=== PATIENT | male | born 1980 | race Caucasian/White ===

== ENCOUNTER 2020-06-12 00:51 | Inpatient (IN) | payer MEDICAID, SELFPAY ==
[2020-06-12] VITALS (58 sets, daily range): BP systolic 132–184; BP diastolic 87–134; PULSE 57–105; RESP 12–26; TEMP 36.1–36.8; O2SAT 86–100
--- NOTE | 2020-06-12 | DI.US_ITS ---
EXAM: US ABDOMEN CLINICAL HISTORY: choledocolithiasis TECHNIQUE: Ultrasound abdomen performed using standard protocol. COMPARISON: CT CT ABDOMEN PELVIS W from 06/12/2020 FINDINGS: ABDOMINAL AORTA AND IVC: Visualized portions normal caliber. PANCREAS: Normal where visualized. LIVER: There is increased echogenicity of the liver consistent with fatty infiltration. The liver me asures 14.9 cm long. Hepatopedal flow in the Portal Vein. GALLBLADDER: No evidence of cholelithiasis. No evidence of wall thickening. No pericholecystic fluid identified. BILIARY SYSTEM: Common bile duct is dilated and measures 8 mm. No intrahepatic biliary ductal dilati on. The common bile duct was difficult to visualize due to overlying bowel gas. RUSHING'S SIGN: Negative. KIDNEYS: Kidneys are symmetric in size. No evidence of renal calculi. No evidence of hydronephrosis. No renal mass or cyst identified. SPLEEN: Not enlarged. ASCITES: None seen. IMPRESSION: 1. The common duct is dilated at 8 mm. No choledocholithiasis or cholelithiasis is present. MRI of the abdomen and MRCP should be considered for further evaluation to exclude stone or mass. 2. Fatty infiltration of the liver. DATA REPOSITORY:
--- NOTE | 2020-06-12 00:45 | DI.CT_ITS ---
EXAM: CT ABDOMEN PELVIS W CLINICAL HISTORY: etoh, vomiting, epigastric pain TECHNIQUE: Imaging Protocol: Axial computed tomography images with coronal and sagittal reformatted images were created and reviewed CONTRAST MATERIAL: Intravenous: Omnipaque 350 Contrast volume:100 mL Oral: No COMPARISON: CT CHEST ABD PELVIS WITH CONTRAST from 10/26/2017 FINDINGS: The examination is limited due to patient motion artifact. ABDOMEN: Lung Bases: Normal where visualized. Liver: There is diffuse fatty infiltration. No measurable mass. Portal, Superior Mesenteric, and Splenic Veins: Unremarkable. Gallbladder and Biliary Tract: No cholelithiasis. The extrahepatic common duct measures up to 1 cm. No choledocholithiasis is appreciated. Pancreas: Normal density, no abnormal calcifications or inflammatory process. Spleen: Normal. Note is made of an accessory spleen. Adrenals: No masses seen. Kidneys: Normal size, contour and axis. No radiodense stones or obstructive uropathy. No masses seen. Abdominal Aorta: Abdominal portion non-dilated. Mild atherosclerosis. Bowel: No evidence of bowel obstruction. There is mild thickening of the wall of the descending and sigmoid colon. No evidence of appendicitis. Peritoneal Cavity: No ascites, collection or mesenteric inflammatory response. No free air. Lymph Nodes: Within normal limits. Bones: Degenerative changes are seen in the lumbar spine particularly at L4-L5. These findings resul t in mild central spinal canal stenosis. Soft Tissues: Unremarkable. PELVIS: Bladder: Symmetric distention, no gross wall thickening. Reproductive Organs: Unremarkable as visualized. Lymph Nodes: Within normal limits. Bones: Please see the above discussion. IMPRESSION: 1. Extrahepatic bile duct dilatation up to 1 cm. If there is clinical/laboratory concern for choledo cholithiasis or mass, ultrasound or MRCP should be obtained for further evaluation. 2. Colonic wall thickening suggesting nonspecific infectious or inflammatory colitis. 3. Hepatic steatosis. 4. Degenerative changes at L4-L5 resulting in mild central spinal canal stenosis. RADIATION DOSE DELIVERED: 807.02mGy.cm Total DLP DATA REPOSITORY: All CT scans at this facility are submitted to the National Radiology Data Registry (NRDR) Dose Index Registry (DIR) with the [employer] (ACR). RADIATION OPTIMIZATION: All CT scans at this facility use at least one of these dose optimization te chniques: automated exposure control; mA and/or kV adjustment per patient size (includes targeted exa ms where dose is matched to clinical indication); or iterative reconstruction.
--- NOTE | 2020-06-12 00:59 | ED.GENADUL_ITS ---
Discharge Plan Disposition Patient Disposition: [facility] INPATIENT Condition: Serious Discharge Details Chief Complaint: ETOHWithdr Clinical Impression: Choledocholithiasis, Alcohol withdrawal delirium, Vomiting, Acute epigastric pain, Dehydration Primary Care Provider: Glendy Cohen ED Provider: Jose Enrique Campos Home Meds and New Rx's Prescriptions: No Action amitriptyline 100 MG tablet 50 mg PO HS RF: 0 valacyclovir 500 MG tablet 500 mg PO BID RF: 0 alum-mag hydroxide-simeth [Maalox Advanced] 355 ML suspension 15 ml PO Q6H PRN PRNRF: 0 terbinafine HCl 15 GM cream 1 applic Topical BID Qty: 1 RF: 0 cyclobenzaprine 10 MG tablet 10 mg PO TID RF: 0 methadone 10 MG/ML concentrate 75 mg PO DAILY RF: 0 albuterol sulfate 8.5 GM HFA aerosol inhaler 8.5 gm Inhalation QID PRN (Reason: Cough) Qty: 1 RF: 0 fluoxetine 20 mg capsule 60 mg PO DAILY RF: 0 Medical Decision Making 40-year-old male with a past medical history of asthma, methadone use, chronic alcoholism and recurrent pancreatitis, as well as a history of DTs, presents today for evaluation of epigastric pain, vomiting, and DTs. Patient regularly drinks 8 extra tall mikes hard lemonade per day. Last drink was 2 to 3 days ago for the patient, he developed some nausea and vomiting 2 to 3 days ago as well, and epigastric pain starting today. She does admit to occasional intermittent small dime sized red speckles in the vomit. He does have a history of previous surgically removed appendicitis. He denies any chest pain, shortness of breath. He states that this feels similar to his previous episodes of DTs and recurrent pancreatitis. Physical exam demonstrates epigastric tenderness, notably tremulous and anxious patient, demonstrates clear evidence of DTs, concern for pancreatitis, Pancreatic pseudocyst or abscess. Will get CT imaging, treat his pain and DTs, rehydrate with banana bag and saline, monitor closely and reassess. Plan is likely for admission. 2 AM Laboratory work-up is returned, white count is 9, MCV is elevated at 101, hemoglobin is stable at 13.6. Electrolytes normal, mild anion gap of 13.4, magnesium normal. Bilirubin notably elevated at 2.3, he has transaminitis of AST and ALT at 206 and 186 respectively. Lipase normal 56. Alcohol negative. Although the patient has had transaminitis before he has never had an elevated bilirubin like this. CT scan results have returned, patient has biliary duct dilatation noted with the common bile duct measuring up to 9 mm with slightly heterogeneous attenuation in the distal common bile duct that is noted without calcification. There is some also colonic wall thickening compatible with nonspecific distal colitis. Differential at this time is certainly concerning for choledocholithiasis. With no white count or fever I doubt ascending cholangitis. However this is on the differential. With the need for potential ERCP, we will contact [facility] for transfer. Patient has received 6 of Ativan so far, and his tremulousness has improved. CIWA score initially was 25, I would say he now has a 6-10 point improvement after the Ativan. 3 AM [facility] is at capacity and refusing transfers, [facility] exact capacity and refusing transfers. [facility] is willing to do a down and back for potential ERCP. I discussed the case with GI Dr. Jeffries, he agrees with the plan. The meantime we will manage the patient here overnight in the ICU. On reassessment after 8 mg total of Ativan the patient has notably improved in his DTs, CIWA score is notably diminished. He is resting comfortably. Patient remains hemodynamically stable. At this time symptoms are clinically inconsistent with ascending cholangitis or cholecystitis. I discussed the case with Dr. Tiwari, he agrees with the assessment and plan. The patient will be admitted to the ICU for DT management, awaiting their and back transport from [facility] for ERCP. I have extensively reviewed the treatment plan with the patient. I have addressed all patient concerns at this time. I have also discussed the plan with the admitting physician and they agree with the current assessment and plan and have agreed to assume responsibility for the patient. All parties demonstrate verbal understanding and agreement with our assessment and plan at this time. The documentation in this chart was dictated using [employer] dictation software. Please excuse any dictation errors. HPI General Date/Time Provider Initiated Documentation: 06/12/20 00:56 . HPI Narrative: 40-year-old male with a past medical history of asthma, methadone use, chronic alcoholism and recurrent pancreatitis, as well as a history of DTs, presents today for evaluation of epigastric pain, vomiting, and DTs. Patient regularly drinks 8 extra tall mikes hard lemonade per day. Last drink was 2 to 3 days ago for the patient, he developed some nausea and vomiting 2 to 3 days ago as well, and epigastric pain starting today. She does admit to occasional i ntermittent small dime sized red speckles in the vomit. He does have a history of previous surgically removed appendicitis. He denies any chest pain, shortness of breath. He states that this feels similar to his previous episodes of DTs and recurrent pancreatitis. Related Data Home Medications Medication Instructions Recorded Confirmed amitriptyline 50 mg PO HS 09/08/12 06/12/20 valacyclovir 500 mg PO BID 09/08/12 06/12/20 alum-mag hydroxide-simeth [Maalox 15 ml PO Q6H PRN PRN 05/20/13 06/12/20 Advanced] terbinafine HCl 1 applic TOPICAL BID #1 tube 04/19/14 06/12/20 cyclobenzaprine 10 mg PO TID 08/15/14 06/12/20 albuterol sulfate 8.5 gm INHALATION QID PRN #1 02/14/15 06/12/20 [email or web address] methadone 75 mg PO DAILY 02/20/15 06/12/20 fluoxetine 60 mg PO DAILY 06/12/20 06/12/20 Previous Rx's Medication Instructions Recorded terbinafine HCl 1 applic TOPICAL BID #1 tube 04/19/14 albuterol sulfate 8.5 gm INHALATION QID PRN #1 02/14/15 [email or web address] Allergies Allergy/AdvReac Type Severity Reaction Status Date / Time clindamycin Allergy Intermediate Hives Unverified 10/26/17 02:18 NSAIDS (Non-Steroidal AdvReac Intermediate perforated Unverified 10/26/17 02:18 Anti-Inflamma ulcer Review of Systems All systems reviewed & are unremarkable except as noted in HPI and below PFSH Social History Smoking/Tobacco Use Status: Current every day Smoking risk assessment performed?: Yes Alcohol Intake: current Alcohol Intake frequency: 3 or more drinks per day Alcohol type: beer Drug use: Current Sobriety Substance use type: does not use Do you feel safe at home: Yes Do you feel safe in your relationship?: Yes Exam Narrative Exam Narrative: 1.Const: Well-nourished, Well-developed, appearing stated age 2.Eyes: PERRL, no conjunctival injection, and symmetrical lids. 3.ENT: Atraumatic external nose and ears. Moist MM. Neck: Symmetric, trachea midline, No thyromegaly. 4.CVS: +S1/S2, No murmurs or gallops. Peripheral pulses 2+ and equal in all extremities. Brisk capillary refill in all extremities. 5.RESP: Unlabored respiratory effort. Clear to auscultation bilaterally. No wheezes rales or rhonchi 6.GI: Soft, nondistended, mild to moderate epigastric tenderness. No guarding or rebound. 7.MSK: Normocephalic/Atraumatic, Extremities w/o deformity or ttp No cyanosis or clubbing, Normal movement of all extremities 8.Skin: Warm, Dry. No rashes or lesions. 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 Sensation grossly intact, no focal neurologic deficits. Notably tremulous, anxious. 10.Psych: (AAO) x3. Appropriate mood and affect
[2020-06-12] MEDS: Ondansetron 4 MG/2 ML VIAL IVP ×2 (01:13→18:50)
[2020-06-12] MEDS: LORazepam 2 MG/ML VIAL IVP (01:13)
[2020-06-12] MEDS: Normal Saline 1,000 ML 1000 ML IV (01:14)
[2020-06-12 01:35] LABS: Abs Immature Grans 0.04 10^3/uL (0.0-0.06); Absolute Basophil Count 0.06 10^3/uL (0.0-0.2); Absolute Eosinophil Count 0.06 10^3/uL (0.0-0.7); Absolute Lymphocyte Count 0.93 10^3/uL (1.2-3.4); Absolute Monocyte Count 0.49 10^3/uL (0.1-0.8); Absolute Neutrophil Count 7.51 10^3/uL (1.2-6.7); Basophils % 0.7; Eosinophils % 0.7; HCT 40.9 % (40.0-50.0); HGB 13.6 g/dL (13.5-17.5); Immature Grans % 0.4; Lymphocytes % 10.2; MCH 33.8 pg (27.0-33.0); MCHC 33.3 % (32.0-36.0); MCV 101.7 fL (80-95); Monocytes % 5.4; Neutrophils % 82.6; Nucleated RBC 0 %; Platelet Count 276 10^3/uL (130-400); RBC 4.02 10^6/uL (4.36-5.78); RDW 12.9 % (11.8-14.1); RDW-SD 48.3 fL; WBC 9.09 10^3/uL (4.4-10.8)
[2020-06-12] MEDS: MAGNESIUM SULFATE 8.12 MEQ, MULTIVITAMIN 10 ML, THIAMINE 100 MG, FOLIC ACID 1 MG in Nor... 168.867 MG IV (01:38)
[2020-06-12] MEDS: Omnipaque 350 MG/ML 100 ML BTL IJ (01:46)
[2020-06-12] MEDS: Normal Saline Flush 10 ML SYR IVP ×3 (01:47→07:55)
[2020-06-12 01:53] LABS: ALT 186 U/L (16-63); AST 206 U/L (15-37); Albumin 4.2 g/dL (3.4-5.0); Alkaline Phosphatase 359 U/L (46-116); Anion Gap 13.4 mmol/L (3-11); BUN 7 mg/dL (7-18); Bilirubin, Total 2.3 mg/dL (0.2-1.0); CO2 25.6 mmol/L (21.0-32.0); CREATININE 0.9 mg/dL (0.70-1.30); Calcium 8.8 mg/dL (8.5-10.1); Chloride 98 mmol/L (98-107); Glucose 98 mg/dL (74-106); Lipase 56 U/L (73-393); Potassium 3.8 mmol/L (3.5-5.1); Sodium 137 mmol/L (136-145); Total Protein 8.2 g/dL (6.4-8.2)
[2020-06-12 01:58] LABS: Magnesium 1.8 mg/dL (1.8-2.4)
--- NOTE | 2020-06-12 01:58 | DI.VRAD_ITS ---
PROCEDURE INFORMATION: Exam: CT Abdomen And Pelvis With Contrast Exam date and time: 06/12/2020 1:35 AM Age: 40 years old Clinical indication: Abdominal pain; Prior surgery; Surgery date: 6+ months; Surgery type: Appendectomy; Patient HX: Epigastric pain and unable to eat or drink for 3 days, vomiting, ETOH TECHNIQUE: Imaging protocol: Computed tomography of the abdomen and pelvis with contrast. Radiation optimization: All CT scans at this facility use at least one of these dose optimization techniques: automated exposure control; mA and/or kV adjustment per patient size (includes targeted exams where dose is matched to clinical indication); or iterative reconstruction. Contrast material: OMNIPAQUE 350; Contrast volume: 100 ml; Contrast route: INTRAVENOUS (IV); COMPARISON: CT CHEST ABD PELVIS WITH CONTRAST 10/26/2017 1:01 AM FINDINGS: Liver: Hepatic steatosis is present. Gallbladder and bile ducts: Biliary ductal dilatation noted with the common bile duct measuring up to 9 mm in transverse dimension. Slightly heterogeneous attenuation in the distal common bile duct noted without calcification. Sonography/MRCP recommended for further evaluation especially if elevated bilirubin levels or symptoms of biliary colic are present. Pancreas: Normal. No ductal dilation. Spleen: Normal. No splenomegaly. Adrenal glands: Normal. No mass. Kidneys and ureters: Normal. No hydronephrosis. Stomach and bowel: Colonic wall thickening compatible with a nonspecific distal colitis, either infectious or inflammatory . Appendix: No evidence of appendicitis. Intraperitoneal space: Unremarkable. No free air. No significant fluid collection. Vasculature: Unremarkable. No abdominal aortic aneurysm. Lymph nodes: Unremarkable. No enlarged lymph nodes. Urinary bladder: Unremarkable as visualized. Reproductive: Unremarkable as visualized. Bones/joints: Unremarkable. No acute fracture. Soft tissues: Unremarkable. IMPRESSION: 1. Biliary ductal dilatation noted with the common bile duct measuring up to 9 mm in transverse dimension. Slightly heterogeneous attenuation in the distal common bile duct noted without calcification. Sonography/MRCP recommended for further evaluation especially if elevated bilirubin levels or symptoms of biliary colic are present. 2. Colonic wall thickening compatible with a nonspecific distal colitis, either infectious or inflammatory . Dictated and Authenticated by: Miguel Tiwari MD. Ordering:JOE Quispe MD
[2020-06-12] MEDS: LORazepam 2 MG/ML VIAL 4 MG IVP (02:04)
[2020-06-12 02:06] LABS: ETHANOL BLOOD < 3.0 mg/dL (<3)
[2020-06-12 02:08] LABS: INR 1.1 (0.9-1.1); PTT Activated 23.5 sec (21.0-27.5); Prothrombin Time 10.6 sec (9.3-11.0)
--- NOTE | 2020-06-12 03:01 | HPE_ITS ---
Date of service: 06/12/20 Time of Service: 03:02 Assessment and Plan Assessment and plan (1) Abdominal pain: Status: Acute Assessment and plan: Abdominal pain, with biliary obstruction, possible stone. No signs infection or cholangitis at present. May be element of alcoholic hepatitis or gastritis contributing as well to presenting symptoms. Will leave NPO with IVF and await transfer for ERCP. For alcohol w/d will continue on CIWA. Will need opiate replacement while NPO, will continue with prn IV MS for now. 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 Comes in with several days of nausea, vomiting, upper abd pain along with tremulousness and sense of withdrawal. In ER findings of note for absence of fever or leukocytosis; ALT 186, AST 206, TBili 2.3, Alk Phos [address] showing dilated CBD to 9mm with non-calcified hypoattentuation in distal CBD. Pancreas unremarkable. Case was reviewed with [facility] and [facility], no beds available, but accepted at [facility] for provisional ERCP in AM. Will be admitted here pending transfer for procedure. Received 4 mg MS and 4 mg MS, is now calm and resting. Review of Systems All systems reviewed & are unremarkable except as noted in HPI and below PFSH Social History Smoking/Tobacco Use Status: Current every day Smoking risk assessment performed?: Yes Alcohol Intake: current Alcohol Intake frequency: 3 or more drinks per day Alcohol type: beer Drug use: Current Sobriety Substance use type: does not use Do you feel safe at home: Yes Do you feel safe in your relationship?: Yes Meds Home Medications and Allergies Home Medications Medication Instructions Recorded Confirmed Type amitriptyline 50 mg PO HS 09/08/12 06/12/20 History valacyclovir 500 mg PO BID 09/08/12 06/12/20 History alum-mag hydroxide-simeth [Maalox 15 ml PO Q6H PRN PRN 05/20/13 06/12/20 History Advanced] terbinafine HCl 1 applic TOPICAL BID #1 tube 04/19/14 06/12/20 Rx cyclobenzaprine 10 mg PO TID 08/15/14 06/12/20 History albuterol sulfate 8.5 gm INHALATION QID PRN #1 02/14/15 06/12/20 Rx [email or web address] methadone 75 mg PO DAILY 02/20/15 06/12/20 History fluoxetine 60 mg PO DAILY 06/12/20 06/12/20 History Allergies Allergy/AdvReac Type Severity Reaction Status Date / Time clindamycin Allergy Intermediate Hives Unverified 10/26/17 02:18 NSAIDS (Non-Steroidal AdvReac Intermediate perforated Unverified 10/26/17 02:18 Anti-Inflamma ulcer Exam Narrative Exam Narrative: 139/87, 71, 36.7, 22, 94% RA. HEENT atraumatic; neck supple; lungs clear; heart RRR; abdomen soft and NT; extremities w/o edema; neuro sleeping awakes with vigorous sternal rub, denies pain (shakes head) follows one step commands, moves all 4s Results Labs Result diagrams: 06/12/20 00:10 06/12/20 00:10 Labs: Laboratory Results - last 24 hr 06/12/20 06/12/20 06/12/20 00:10 00:10 00:10 WBC 9.09 RBC 4.02 L Hgb 13.6 Hct 40.9 MCV 101.7 H MCH 33.8 H MCHC 33.3 RDW 12.9 Plt Count 276 MPV 9.0 Immature Gran % 0.4 Neutrophils % 82.6 Lymphocytes % 10.2 Monocytes % 5.4 Eosinophils % 0.7 Basophils % 0.7 Nucleated RBC % 0 Absolute Neutrophils 7.51 H Absolute Lymphocytes 0.93 L Absolute Monocytes 0.49 Absolute Eosinophils 0.06 Absolute Basophils 0.06 PT 10.6 INR 1.1 APTT 23.5 Sodium 137 Potassium 3.8 Chloride 98 Carbon Dioxide 25.6 Anion Gap 13.4 H BUN 7 Creatinine 0.9 Estimated GFR/1.73 m2 >= 60.00 Glucose 98 Calcium 8.8 Magnesium Total Bilirubin 2.3 H AST 206 H ALT 186 H Alkaline Phosphatase 359 H Total Protein 8.2 Albumin 4.2 Lipase 56 Ethyl Alcohol < 3.0 06/12/20 00:10 WBC RBC Hgb Hct MCV MCH MCHC RDW Plt Count MPV Immature Gran % Neutrophils % Lymphocytes % Monocytes % Eosinophils % Basophils % Nucleated RBC % Absolute Neutrophils Absolute Lymphocytes Absolute Monocytes Absolute Eosinophils Absolute Basophils PT INR APTT Sodium Potassium Chloride Carbon Dioxide Anion Gap BUN Creatinine Estimated GFR/1.73 m2 Glucose Calcium Magnesium 1.8 Total Bilirubin AST ALT Alkaline Phosphatase Total Protein Albumin Lipase Ethyl Alcohol Last Vital Signs Temp 36.7 C 06/12/20 00:50 Pulse 99 H 06/12/20 02:01 Resp 14 06/12/20 02:01 BP 162/89 H 06/12/20 02:01 Pulse Ox 98 06/12/20 02:01 COVID-19 Screening Have you, or household traveled for leisure in last 14 days?: No Had IN PERSON contact w/suspected or confirmed C-19 person: No
[2020-06-12 03:43] LABS: Source Nasopharynx
[2020-06-12 04:21] LABS: COVID-19 PCR Negative (Negative); Influenza A PCR Negative (Negative); Influenza B PCR Negative (Negative); RSV PCR Negative (Negative)
[2020-06-12 06:56] LABS: HCT 37.6 % (40.0-50.0); HGB 12.3 g/dL (13.5-17.5); MCH 33.6 pg (27.0-33.0); MCHC 32.7 % (32.0-36.0); MCV 102.7 fL (80-95); Platelet Count 163 10^3/uL (130-400); RBC 3.66 10^6/uL (4.36-5.78); RDW 12.8 % (11.8-14.1); RDW-SD 48.2 fL; WBC 5.04 10^3/uL (4.4-10.8)
[2020-06-12 07:10] LABS: ALT 130 U/L (16-63); AST 134 U/L (15-37); Alkaline Phosphatase 274 U/L (46-116); Anion Gap 7.1 mmol/L (3-11); BUN 6 mg/dL (7-18); Bilirubin, Total 2.1 mg/dL (0.2-1.0); CO2 26.9 mmol/L (21.0-32.0); CREATININE 0.8 mg/dL (0.70-1.30); Calcium 7.9 mg/dL (8.5-10.1); Chloride 106 mmol/L (98-107); Glucose 78 mg/dL (74-106); Potassium 3.9 mmol/L (3.5-5.1); Sodium 140 mmol/L (136-145)
[2020-06-12] MEDS: Pantoprazole 40 MG VIAL IVP (07:55)
[2020-06-12] MEDS: Lactated Ringers 1,000 ML 150 ML IV ×3 (07:56→21:21)
--- NOTE | 2020-06-12 09:45 | INITIAL_ITS ---
- If Service Date Differs Date of service: 06/12/20 Time of Service: 09:45 Care Management Initial Assess REASON FOR HOSPITALIZATION:: Abdominal pain PAST MEDICAL HISTORY/PAST SURGICAL HISTORY:: None documented PREVIOUS FUNCTIONAL STATUS/SOCIAL/FAMILY SUPPORTS:: oJse Enrique lives in [place] with his step father. 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 Arron has one sister and one step brother. He is independent at baseline and does not receive any community services other that through [facility]. CURRENT FUNCTIONAL STATUS:: Arron was lying in bed when CM met with him. He was cooperative but kept falling asleep during the conversation. Arron stated that he has not slept in 3 days due to the pain. He acknowledged that he stopped drinking a few days before admission and feels he is withdrawing. He has not used a [employer] before but may be open to it. He did state that he has had services through [facility] in the past but did not find them helpful. ADVANCE DIRECTIVES:: none on file and not interested Has patient been provided with info about the portal/API?: Yes Did the patient sign up for the portal?: No CODE STATUS:: Full Code INSURANCE COVERAGE / FINANCIAL ISSUES:: Medicaid CURRENT HOME/COMMUNITY SERVICES/EQUIPMENT:: [facility] PRIMARY CARE PHYSICIAN:: Glendy Cohen POTENTIAL DISCHARGE NEEDS:: follow up with PCP and discharge plan PATIENT/FAMILY EDUCATION NEEDS:: Discharge plan, limitations, follow up plan, Ask Me Three TRANSPORTATION:: via private vehicle with friend/family PLAN:: Arron will likely discharge home but disposition is unclear at this time. He needs an ERCP anf may transfer to [facility] for the procedure. CM will continue to support Arron and his discharge planning needs.
[2020-06-12] MEDS: FLUoxetine 20 MG CAP 60 MG PO (11:39)
[2020-06-12] MEDS: amLODIPine 5 MG TAB PO (11:39)
--- NOTE | 2020-06-12 11:50 | PHACLINREV_ITS ---
Pharmacy Admission Review - Admission Clinical Review (Last Reviewed 06/12/20 @ 03:12 by Paco Tiwari MD) Abdominal pain (Acute) Choledocholithiasis (Acute) Alcohol withdrawal delirium (Acute) Vomiting (Acute) Acute epigastric pain (Acute) Dehydration (Acute) clindamycin Allergy (Intermediate, Unverified 10/26/17 02:18) Hives NSAIDS (Non-Steroidal Anti-Inflamma Adverse Reaction (Intermediate, Unverified 10/26/17 02:18) perforated ulcer Height 5 ft 7 in Weight 74.5 kg - Renal Dosing Renal Dosing: BUN 6 mg/dL (7-18) L 06/12/20 06:20 Creatinine 0.8 mg/dL (0.70-1.30) 06/12/20 06:20 Medications needing adjustments: Reviewed (Crcl ~114 mL/min current meds okay) - Anticoagulation Anticoagulation: Hgb 12.3 g/dL (13.5-17.5) L 06/12/20 06:20 Hct 37.6 % (40.0-50.0) L 06/12/20 06:20 Plt Count 163 10^3/uL (130-400) D 06/12/20 06:20 INR 1.1 (0.9-1.1) 06/12/20 00:10 Creatinine 0.8 mg/dL (0.70-1.30) 06/12/20 06:20 DVT Prohphylaxis: Reviewed (none ordered, possible procedure tomorrow) Therapeutic Anticoagulation: N/A - Opiate Usage Evaluate Pain Scale/Pains Meds: Reviewed Scheduled Bowel Reg ordered if on Opiates?: No (will mention to provider) - Relevant Labs Sodium 140 mmol/L (136-145) 06/12/20 06:20 Potassium 3.9 mmol/L (3.5-5.1) 06/12/20 06:20 Chloride 106 mmol/L (98-107) 06/12/20 06:20 Magnesium 1.8 mg/dL (1.8-2.4) 06/12/20 00:10 Electrolytes, C-Reactive P, ESR: Reviewed - DM Control DM Control: Glucose 78 mg/dL (74-106) 06/12/20 06:20 Insulin Dosing: N/A - Heart Failure/CO EF%, JAY's, B-Blockers, Diuretics: N/A - BP Control BP Control: Blood Pressure 151/105 Blood Pressure 164/102 Blood Pressure 176/105 Blood Pressure 178/102 Blood Pressure 171/134 Blood Pressure 152/91 Blood Pressure 151/89 Blood Pressure 164/99 Blood Pressure 184/102 If elevated: Intervened (BP 184/102 before morning meeting, mentioned to provide r, one time amlodipine dose ordered plus PRN clonidine for SBP>170.) - Qtc Review If Elevated: N/A (pt has ondansetron ordered and methadone on home med list) - IV to PO Switch IV Medications: Reviewed - Home Meds Home Med List reviewed: Reviewed (Fluoxetine may enhance the serotonergic effect of amitriptyline, monitor for signs/symptoms serotonin syndrome/toxicity when used in combination. Multiple DOCUMENT MANAGEMENT TECHNICIAN depressants; recommended to avoid concurrent use when possible.) Relevent Home Meds Not ordered & why?: albuterol (PRN), maalox (PRN), amitriptyline, cyclobenzaprine (PRN), methadone, terbinafine, valacyclovir - Current meds Current Medication Order Review: Reviewed - Comments Comments/Follow Ups: Watch BP, labs, and for med changes (avoid additional QT prolonging meds, home meds).
[2020-06-12] MEDS: MORPHine 4 MG/ML SYR IVP ×4 (13:21→23:07)
[2020-06-12] MEDS: LORazepam 2 MG/ML VIAL 1 MG IVP ×2 (17:48→21:48)
[2020-06-12] MEDS: Nicotine 21 MG/24 HR PATCH TD (17:48)
[2020-06-13] VITALS (48 sets, daily range): BP systolic 135–183; BP diastolic 89–160; PULSE 59–102; RESP 12–29; TEMP 35.9–37.2
--- NOTE | 2020-06-13 | DI.US_ITS ---
EXAM: US LOWER EXTREMITY VENOUS LT CLINICAL HISTORY: aching pain from distal thigh through calf. TECHNIQUE: Left lower extremity venous ultrasound performed using grayscale, color-flow, and spectra l Doppler analysis. COMPARISON: No exams were available for comparison FINDINGS: The left common femoral, femoral and popliteal veins demonstrate normal compressibility, augmentation , and color Doppler. The posterior tibial veins are patent. The saphenofemoral junction is unremarka ble. There is thrombus seen in the mid greater saphenous vein measuring 2.6 cm in length. There is no evidence of a Alejandra cyst. The soft tissues are unremarkable. IMPRESSION: 1. No DVT. 2. Superficial thrombophlebitis. DATA REPOSITORY:
[2020-06-13] MEDS: LORazepam 2 MG/ML VIAL 1 MG IVP ×6 (01:21→22:41)
[2020-06-13] MEDS: MORPHine 4 MG/ML SYR IVP ×5 (02:44→21:42)
[2020-06-13] MEDS: Lactated Ringers 1,000 ML 150 ML IV ×3 (03:38→23:13)
[2020-06-13] MEDS: Normal Saline Flush 10 ML SYR IVP ×3 (06:57→21:27)
[2020-06-13] MEDS: Pantoprazole 40 MG VIAL IVP (08:20)
[2020-06-13] MEDS: Nicotine 21 MG/24 HR PATCH TD (08:21)
[2020-06-13] MEDS: FLUoxetine 20 MG CAP 60 MG PO (08:22)
[2020-06-13] MEDS: cloNIDine 0.1 MG TAB PO (08:22)
--- NOTE | 2020-06-13 08:52 | PDOC.CMPRO ---
- If Service Date Differs Date of service: 06/13/20 Time of Service: 08:52 Care Management Progress Note S/O: Arron was lying in bed in ICU when CM met with him. He remains sleepy and stated he is having abdominal/epigastric pain. He continues to require morphine for pain and is receiving scheduled Ativan. based on conversations with [facility] providers, he is no longer in need of an ERCP at this time. A:Arron is a 40 year old man admitted with abdominal pain on 06/12/20 P: Arron will likely discharge home with no new services. He will follow up with his community providers and plan of mcare and transport with family/friends. CM will continue to support Arron and his discharge planning needs.
[2020-06-13 09:36] LABS: ALT 115 U/L (16-63); AST 105 U/L (15-37); Albumin 3.2 g/dL (3.4-5.0); Alkaline Phosphatase 273 U/L (46-116); Anion Gap 8.4 mmol/L (3-11); BUN 4 mg/dL (7-18); Bilirubin, Total 1.9 mg/dL (0.2-1.0); CO2 26.6 mmol/L (21.0-32.0); CREATININE 0.7 mg/dL (0.70-1.30); Calcium 8.5 mg/dL (8.5-10.1); Chloride 102 mmol/L (98-107); Glucose 76 mg/dL (74-106); Potassium 3.6 mmol/L (3.5-5.1); Sodium 137 mmol/L (136-145); Total Protein 6.9 g/dL (6.4-8.2)
[2020-06-13] MEDS: Enoxaparin 40 MG/0.4 ML SYR SC (10:27)
--- NOTE | 2020-06-13 11:36 | PGE_ITS ---
Date of Service Date of service: 06/13/20 Time of Service: 08:33 Assessment and Plan Assessment and plan (1) Choledocholithiasis: Status: Acute Assessment and plan: Given a new finding of a superficial thrombus, the question does arise regarding a potential underlying malignancy. Possible biliary mass was in consideration given the dilitation of his CBP and no clear evidence of a a calcification/stone. Initial VRad reading mention a slightly heterogeneous attenuation in the distal CBD w/o calcification. In-house radiology read did not mention an attenuation. Abd US also showed no mass/stone. With LFTs and bilirubin improving, likely passed a stone. Discussed his case again today with Dr Ulloa, GI Fellow at [facility]. She will discuss with endoscopist, but it doesn't appear to be a need, at this time, for an ERCP. Will allow him to eat and continue to monitor his lab and clinical condition. He does c/o epigastric discomfort; cont IV Protonix. (2) Alcohol withdrawal delirium: Status: Acute Assessment and plan: Cont CIWA monitoring and treatment with prn lorazepam. (3) Superficial thrombophlebitis: Status: Acute Assessment and plan: Thrombus in left greater saphenous vein. Lovenox; VTE dosing. low risk for development of DVT. Given a thrombus, the question does arise regarding a potential underlying malignancy. Possible biliary mass was in consideration given the dilitation of his CBP and no clear evidence of a a calcification/stone. Initial VRad reading mention a slightly heterogeneous attenuation in the distal CBD w/o ca lcification. In-house radiology read did not mention an attenuation. Abd US also showed no mass/stone. With LFTs and bilirubin improving, likely passed a stone. Subjective Subjective Patient reports: tolerating liquids well, nausea and afebrile; denies vomiting and shortness of breath Interval history since last seen: He endorses some upper / epigastric discomfort. Achy pain in LLE from distal thigh into the calf. Exam Const General: no acute distress and lethargic (answers questions, doesn't fall asleep during exam) Nutritional Appearance: average body habitus Orientation: awake [facility] Head: normocephalic and atraumatic Eyes Sclera: sclerae normal Pupils: PERRL Resp Effort & Inspection: normal respiratory effort Auscultation: clear to auscultation bilaterally Cardio Rate: regular rate Rhythm: regular rhythm Heart Sounds: S1 normal and S2 normal GI Inspection: normal to inspection Palpation: soft and tender in the epigastrum; with no rebound tenderness Extrem General: no pedal edema and calf tenderness (also tenderness in distal posterior thigh.) on the left Psych Appearance: grossly normal Speech and Movement: delayed speech Affect: blunted Objective Last Vital Signs Temp 36.2 C L 06/13/20 08:47 Pulse 79 06/13/20 10:01 Resp 13 06/13/20 10:01 BP 144/95 H 06/13/20 11:02 Pulse Ox 98 06/12/20 16:30 Laboratory Results - last 24 hr 06/13/20 09:08 Sodium 137 Potassium 3.6 Chloride 102 Carbon Dioxide 26.6 Anion Gap 8.4 BUN 4 L Creatinine 0.7 Estimated GFR/1.73 m2 >= 60.00 Glucose 76 Calcium 8.5 Total Bilirubin 1.9 H AST 105 H ALT 115 H Alkaline Phosphatase 273 H Total Protein 6.9 Albumin 3.2 L
[2020-06-13] MEDS: Amitriptyline 25 MG TAB PO (21:27)
[2020-06-14] VITALS (20 sets, daily range): BP systolic 131–164; BP diastolic 88–105; PULSE 57–77; RESP 10–24; TEMP 36.2–36.4; O2SAT 95–97
[2020-06-14] MEDS: LORazepam 2 MG/ML VIAL 1 MG IVP ×2 (01:47→05:44)
[2020-06-14] MEDS: Normal Saline Flush 10 ML SYR IVP ×4 (01:48→20:20)
[2020-06-14] MEDS: Lactated Ringers 1,000 ML 150 ML IV (05:38)
[2020-06-14] MEDS: MORPHine 4 MG/ML SYR IVP ×5 (06:16→22:05)
[2020-06-14 06:42] LABS: HCT 37.4 % (40.0-50.0); HGB 12.7 g/dL (13.5-17.5); MCH 33.2 pg (27.0-33.0); MCV 97.9 fL (80-95); MPV 9.2 fL (8.0-11.0); Platelet Count 175 10^3/uL (130-400); RBC 3.82 10^6/uL (4.36-5.78); RDW 12.4 % (11.8-14.1); RDW-SD 44.6 fL; WBC 5.04 10^3/uL (4.4-10.8)
[2020-06-14 06:57] LABS: ALT 88 U/L (16-63); AST 73 U/L (15-37); Albumin 2.9 g/dL (3.4-5.0); Alkaline Phosphatase 231 U/L (46-116); Anion Gap 9.3 mmol/L (3-11); BUN 5 mg/dL (7-18); Bilirubin, Total 0.8 mg/dL (0.2-1.0); CO2 24.7 mmol/L (21.0-32.0); CREATININE 0.8 mg/dL (0.70-1.30); Calcium 8.5 mg/dL (8.5-10.1); Chloride 104 mmol/L (98-107); Glucose 97 mg/dL (74-106); Potassium 3.8 mmol/L (3.5-5.1); Sodium 138 mmol/L (136-145); Total Protein 6.4 g/dL (6.4-8.2)
[2020-06-14] MEDS: Enoxaparin 40 MG/0.4 ML SYR SC (08:17)
[2020-06-14] MEDS: Pantoprazole 40 MG VIAL IVP ×2 (08:17→20:20)
[2020-06-14] MEDS: FLUoxetine 20 MG CAP 60 MG PO (08:17)
[2020-06-14] MEDS: Nicotine 21 MG/24 HR PATCH TD (08:19)
--- NOTE | 2020-06-14 09:40 | PDOC.CMPRO ---
- If Service Date Differs Date of service: 06/14/20 Time of Service: 09:40 Care Management Progress Note S/O: Arron was lying in bed when CM met with him. He has been moved out of the ICU to the Med-Surg unit. He appeared more awake today however is still not very talkative. Arron stated that he continues to have epigastric pain which he believes is due to bubbles in his pancreas. He seemed unaware that the ERCP that was considered by [facility] has been cancelled as his labs indicate that he most likely has passed a stone. Arron's CIWA scores have been between 5 and 8 today. A:Arron is a 40 year old man admitted with abdominal pain on 06/12/20 P: Arron will likely discharge home with no new services. He will follow up with his community providers and plan of mcare and transport with family/friends. will continue to support Arron and his discharge planning needs.
--- NOTE | 2020-06-14 11:13 | W.PM.PROGNOT ---
Date of Service Date of service: 06/14/20 Time of Service: 10:13 Assessment and Plan Assessment and plan (1) Superficial thrombophlebitis: Status: Acute Assessment and plan: No treatment other than lovenox at VTE prophylaxis dosing. (2) Choledocholithiasis: Status: Acute Assessment and plan: Questionably passed a stone; presented with CBD dilitation. His Bilirubin has normalized and LFTs continue to trend toward normal. His epigastric and LUQ pain is likely from colitis. (3) Alcohol withdrawal delirium: Status: Acute Assessment and plan: Will change to prn Ativan for CIWA scoring. (4) Colitis: Status: Acute Assessment and plan: Viral? No diarrhea or emesis. Subjective Subjective Patient reports: bowel movement and afebrile; denies diarrhea, vomiting and shortness of breath Interval history since last seen: He continues to have epigastric discomfort; somewhat improved. Has been sipping liquids. Tried to eat a small amount of solid food yesterday but was unable to d/t nausea. IV Ativan x 4 doses from 6PM yesterday; last dose at 5:44 this AM. Exam Const General: cooperative, no acute distress and other (appears tired) Nutritional Appearance: average body habitus Orientation: oriented to person and oriented to place Resp Effort & Inspection: normal respiratory effort Auscultation: clear to auscultation bilaterally Cardio Rate: regular rate Rhythm: regular rhythm Heart Sounds: S1 normal and S2 normal GI Palpation: soft and tender in the epigastrum and in the LUQ; with no rebound tenderness Neuro General: patient awake, moves all extremities and no focal motor deficits Cognition: normal cognition Speech: speech normal Extrem General: no pedal edema and no calf tenderness Objective Last Vital Signs Temp 36.3 C L 06/14/20 08:40 Pulse 69 06/14/20 09:01 Resp 23 06/14/20 09:30 BP 160/104 H 06/14/20 09:01 Pulse Ox 95 06/14/20 08:40 Laboratory Results - last 24 hr 06/14/20 06/14/20 06:10 06:10 WBC 5.04 RBC 3.82 L Hgb 12.7 L Hct 37.4 L MCV 97.9 H MCH 33.2 H MCHC 34.0 RDW 12.4 Plt Count 175 MPV 9.2 Sodium 138 Potassium 3.8 Chloride 104 Carbon Dioxide 24.7 Anion Gap 9.3 BUN 5 L Creatinine 0.8 Estimated GFR/1.73 m2 >= 60.00 Glucose 97 Calcium 8.5 Total Bilirubin 0.8 AST 73 H ALT 88 H Alkaline Phosphatase 231 H Total Protein 6.4 Albumin 2.9 L
[2020-06-14] MEDS: Lactated Ringers 1,000 ML 200 ML IV (12:10)
[2020-06-14] MEDS: LORazepam 1 MG TAB PO/SL ×4 (12:11→22:00)
[2020-06-14] MEDS: Methadone Liquid 10 MG/ML 75 MG PO (12:50)
--- NOTE | 2020-06-14 13:12 | W.NUTRFU ---
Date of service: 06/14/20 Time of Service: 13:12 Nutritional Follow up NOTE: 40 year old male admitted with biliary obstruction, colitis, alcohol withdrawl, perscribed methadone. BMI wnl and stable > 1 year. Following regular meal plan with excellent intake. Not at nutritional risk at this time. Will continue to follow. Time Spent in Nutritional Counseling and Treatment: 0
--- NOTE | 2020-06-14 17:18 | PHA.REVIEW ---
Pharmacy Admission Review - Admission Clinical Review (Last Reviewed 06/12/20 @ 03:12 by Paco Tiwari MD) Colitis (Acute) Superficial thrombophlebitis (Acute) Abdominal pain (Acute) Choledocholithiasis (Acute) Alcohol withdrawal delirium (Acute) Vomiting (Acute) Acute epigastric pain (Acute) Dehydration (Acute) clindamycin Allergy (Intermediate, Unverified 10/26/17 02:18) Hives NSAIDS (Non-Steroidal Anti-Inflamma Adverse Reaction (Intermediate, Unverified 10/26/17 02:18) perforated ulcer Height 5 ft 7 in Weight 74.5 kg - Renal Dosing Renal Dosing: BUN 5 mg/dL (7-18) L 06/14/20 06:10 Creatinine 0.8 mg/dL (0.70-1.30) 06/14/20 06:10 Medications needing adjustments: Reviewed - Anticoagulation Anticoagulation: Hgb 12.7 g/dL (13.5-17.5) L 06/14/20 06:10 Hct 37.4 % (40.0-50.0) L 06/14/20 06:10 Plt Count 175 10^3/uL (130-400) 06/14/20 06:10 INR 1.1 (0.9-1.1) 06/12/20 00:10 Creatinine 0.8 mg/dL (0.70-1.30) 06/14/20 06:10 DVT Prohphylaxis: Reviewed Medications: Enoxaparin - Opiate Usage Evaluate Pain Scale/Pains Meds: Reviewed Scheduled Bowel Reg ordered if on Opiates?: No (monitor BMs) - Relevant Labs Sodium 138 mmol/L (136-145) 06/14/20 06:10 Potassium 3.8 mmol/L (3.5-5.1) 06/14/20 06:10 Chloride 104 mmol/L (98-107) 06/14/20 06:10 Magnesium 1.8 mg/dL (1.8-2.4) 06/12/20 00:10 Electrolytes, C-Reactive P, ESR: Reviewed - DM Control DM Control: Glucose 97 mg/dL (74-106) 06/14/20 06:10 Insulin Dosing: N/A - Heart Failure/WI EF%, JAY's, B-Blockers, Diuretics: Reviewed - BP Control BP Control: Blood Pressure [Left Arm] 163/105 Blood Pressure 139/88 Blood Pressure 160/104 Blood Pressure 163/105 Blood Pressure 138/95 Blood Pressure 143/96 Blood Pressure 164/89 If elevated: Reviewed
[2020-06-14] MEDS: Amitriptyline 25 MG TAB PO (22:00)
[2020-06-15 00:20] VITALS: BP 152/96; PULSE 64; RESP 18; TEMP 36.1; O2SAT 98
[2020-06-15 07:10] LABS: ALT 78 U/L (16-63); AST 59 U/L (15-37); Albumin 2.9 g/dL (3.4-5.0); Alkaline Phosphatase 208 U/L (46-116); Anion Gap 7.6 mmol/L (3-11); BUN 5 mg/dL (7-18); Bilirubin, Total 0.4 mg/dL (0.2-1.0); CO2 26.4 mmol/L (21.0-32.0); CREATININE 0.7 mg/dL (0.70-1.30); Calcium 8.5 mg/dL (8.5-10.1); Chloride 104 mmol/L (98-107); Glucose 104 mg/dL (74-106); Potassium 3.9 mmol/L (3.5-5.1); Sodium 138 mmol/L (136-145); Total Protein 6.5 g/dL (6.4-8.2)
[2020-06-15 08:15] VITALS: BP 150/82; PULSE 75; RESP 17; TEMP 36.6; O2SAT 94
[2020-06-15] MEDS: Enoxaparin 40 MG/0.4 ML SYR SC (08:52)
[2020-06-15] MEDS: Nicotine 21 MG/24 HR PATCH TD (08:52)
[2020-06-15] MEDS: MORPHine 4 MG/ML SYR IVP (08:53)
[2020-06-15] MEDS: Pantoprazole 40 MG VIAL IVP ×2 (08:54→20:34)
[2020-06-15] MEDS: FLUoxetine 20 MG CAP 60 MG PO (08:54)
[2020-06-15] MEDS: Polyethylene Glycol 3350 17 GM PACKET PO (10:02)
[2020-06-15] MEDS: Methadone Liquid 10 MG/ML 75 MG PO (10:03)
--- NOTE | 2020-06-15 10:07 | PDOC.CMPRO ---
- If Service Date Differs Date of service: 06/15/20 Time of Service: 10:07 Care Management Progress Note S/O: Arron was asleep in bed asleep CM came to meet with him. Three attempts were made, all of which were after he received the Ativan. He has been moved out of the ICU to the Med-Surg unit. His CIWA scores remain low, between 1 and 5 today. He has not required any morphine for pain and has only has one 1mg dose of Ativan. A:Arron is a 40 year old man admitted with abdominal pain on 06/12/20 P: Arron will likely discharge home with no new services. He will follow up with his community providers and plan of mcare and transport with family/friends. CM will continue to support Arron and his discharge planning needs.
[2020-06-15] MEDS: LORazepam 1 MG TAB PO/SL ×2 (12:33→17:03)
--- NOTE | 2020-06-15 12:58 | W.PM.PROGNOT ---
Date of Service Date of service: 06/15/20 Time of Service: 09:28 Assessment and Plan Assessment and plan (1) Colitis: Status: Acute Assessment and plan: Conts to have epigastric and LUQ discomfort but improving. Cont supportive measures and pain management. (2) Superficial thrombophlebitis: Status: Acute Assessment and plan: Cont VTE prophylaxis; no specific anticoagulation indicated. (3) Alcohol withdrawal delirium: Status: Acute Assessment and plan: He has scored as high as 8 on CIWA early today but overall feeling better. PO ativan prn CIWA scoring. Thiamine, folate, MVI (4) Choledocholithiasis: Status: Acute Assessment and plan: Had a dilated CBD but no definitive stone or mass noted. Likely passed a stone; LFTs and Bilirubin were elevated on admission and bilirubin has normalized and LFTs have trended downward. [place] [facility] no intervention/ERCP indicated. Subjective Subjective Patient reports: tolerating liquids well, bowel movement (One BM since admission.) and afebrile; denies nausea and vomiting Interval history since last seen: Has eaten some solid foods. Exam Const General: cooperative, no acute distress and other (Less fatigued appearing) Nutritional Appearance: average body habitus Orientation: alert and oriented x3 Resp Effort & Inspection: normal respiratory effort Auscultation: clear to auscultation bilaterally Cardio Rate: regular rate Rhythm: regular rhythm Heart Sounds: S1 normal and S2 normal GI Inspection: normal to inspection Palpation: soft and tender in the epigastrum and in the LUQ; with no rebound tenderness Skin General skin exam: no rashes or lesions noted Extrem General: no pedal edema and calf tenderness on the left (improved) Psych Appearance: grossly normal Mental Status: mental status grossly normal Speech and Movement: speech and movement normal Affect: blunted Attitude: cooperative Objective Last Vital Signs Temp 36.6 C 06/15/20 08:15 Pulse 75 06/15/20 08:15 Resp 17 06/15/20 08:15 BP 150/82 H 06/15/20 08:15 Pulse Ox 94 06/15/20 08:15 Laboratory Results - last 24 hr 06/15/20 06:27 Sodium 138 Potassium 3.9 Chloride 104 Carbon Dioxide 26.4 Anion Gap 7.6 BUN 5 L Creatinine 0.7 Estimated GFR/1.73 m2 >= 60.00 Glucose 104 Calcium 8.5 Total Bilirubin 0.4 AST 59 H ALT 78 H Alkaline Phosphatase 208 H Total Protein 6.5 Albumin 2.9 L
[2020-06-15] MEDS: Folic Acid 1 MG TAB PO (13:47)
[2020-06-15] MEDS: Multivitamin w/Minerals TAB 1 TAB PO (13:47)
[2020-06-15] MEDS: Thiamine 100 MG TAB PO (13:48)
[2020-06-15 16:27] VITALS: BP 118/81; PULSE 67; RESP 15; TEMP 36.9; O2SAT 95
[2020-06-15] MEDS: Normal Saline Flush 10 ML SYR IVP (20:33)
[2020-06-15] MEDS: Amitriptyline 25 MG TAB PO (21:33)
[2020-06-15 23:20] VITALS: BP 122/83; PULSE 74; RESP 16; TEMP 36.7; O2SAT 95
--- NOTE | 2020-06-16 | DI.RAD_ITS ---
EXAM: 2D digital imaging was performed. CLINICAL HISTORY: LUQ pain: ?SBO, ?colonic dilatation. COMPARISON: No exams were available for comparison TECHNIQUE: Supine views of the abdomen performed. FINDINGS: BOWEL GAS PATTERN: Nondistended. Moderate amount of retained stool throughout the colon. No evidence to suggest bowel obstruction. OSSEOUS STRUCTURES: Normal for age. OTHER FINDINGS: Atherosclerosis. IMPRESSION: 1. Nonobstructive bowel gas pattern. 2. Constipation. DATA REPOSITORY: RADIATION DOSE DELIVERED:
[2020-06-16] MEDS: LORazepam 1 MG TAB PO/SL ×3 (03:36→15:57)
[2020-06-16 07:52] VITALS: BP 149/82; PULSE 64; RESP 17; TEMP 37.1; O2SAT 95
[2020-06-16] MEDS: Thiamine 100 MG TAB PO (09:25)
[2020-06-16] MEDS: Multivitamin w/Minerals TAB 1 TAB PO (09:25)
[2020-06-16] MEDS: Folic Acid 1 MG TAB PO (09:26)
[2020-06-16] MEDS: FLUoxetine 20 MG CAP 60 MG PO (09:26)
[2020-06-16] MEDS: Enoxaparin 40 MG/0.4 ML SYR SC (09:27)
[2020-06-16] MEDS: Normal Saline Flush 10 ML SYR IVP ×2 (09:27→20:10)
[2020-06-16] MEDS: Nicotine 21 MG/24 HR PATCH TD (09:28)
[2020-06-16] MEDS: Methadone Liquid 10 MG/ML 75 MG PO (09:30)
[2020-06-16] MEDS: Pantoprazole 40 MG VIAL IVP ×2 (09:38→20:10)
--- NOTE | 2020-06-16 10:34 | CMPROGNOTE_ITS ---
- If Service Date Differs Date of service: 06/16/20 Time of Service: 10:34 Care Management Progress Note S/O: Per nursing staff, Jose Enrique scored a 10 on the CIWA last evening and is experiencing hallucinations today. He is tolerating a regular diet, but did require morphine last night for abdominal pain. A basic metabolic panel, platelet count, and Magnesium level will be drawn in the a.m. An x-ray of abdomen done today reveals moderate colonic stool burden which may correlate with clinical symptoms of constipation. CM will continue to follow. A: Jose Enrique is a 40 year old male admitted to [facility] on 06/12/2020 with abdominal pain. P: No change in plan. Jose Enrique will likely discharge home with no new services when medically cleared by provider. He will follow up with his community providers and plan of care as directed. Transport will be provided by family/friends via private vehicle when ready. CM will continue to support Jose Enrique and his discharge planning needs.
--- NOTE | 2020-06-16 11:44 | PGE_ITS ---
Date of Service Date of service: 06/16/20 Time of Service: 11:44 Assessment and Plan Assessment and plan (1) Alcohol withdrawal delirium: Status: Acute Assessment and plan: Continues to have symptoms of withdrawal (today it is hallucinations). Not ready for discharge home. Conitnue monitoring on CIWA with with prn PO ativan, thiamine, folate, MVI (2) Colitis: Status: Acute Assessment and plan: Obtain XR abdomen to ensure to colonic dilatation/megacolon can now be seen. (3) Superficial thrombophlebitis: Status: Acute Assessment and plan: Warm compresses. Continue VTE prophylaxis (4) Choledocholithiasis: Status: Resolved Assessment and plan: Agree that he likely passed the stone. Had a dilated CBD but no definitive stone or mass noted. Per GI at [facility]: no intervention/ERCP indicated. (5) DVT prophylaxis: Status: Acute Assessment and plan: SC lovenox (6) Discharge planning issues: Status: Acute Assessment and plan: Full code Continues to require hospitalization Subjective Subjective Patient reports: no new complaints Interval history since last seen: Mr Mcbride is hallucinating today - audio, v isual, as well as tactile. He denies dizziness, chest pain, shortness of breath, though he states it hurts his LUQ to take a deep breath. No BM x at least 3 days - he took a stool softener this morning. Denies nausea/vomiting. Was able to tolerate regular consistency diet. Reports suprapubic discomfort and does not think he is always emptying his bladder. Exam Narrative Exam Narrative: General: Pleasant soft-spoken male, does not appear to be actively hallucinating in front of me, not tremulous HEENT: EOMI, MMM Heart: RRR, no m/r/g, mildly tachycardic (low 100s) Lungs: CTAB Abdomen: soft, tender in LUQ as well as suprapubically Extremities: no edema BLEs Objective Last Vital Signs Temp 37.1 C 06/16/20 07:52 Pulse 64 06/16/20 07:52 Resp 17 06/16/20 07:52 BP 149/82 H 06/16/20 07:52 Pulse Ox 95 06/16/20 07:52
--- NOTE | 2020-06-16 13:07 | DI.VRAD_ITS ---
PROCEDURE INFORMATION: Exam: XR Abdomen, 1 View Exam date and time: 06/16/2020 12:03 PM Age: 40 years old Clinical indication: Abdominal tenderness; Patient HX: Luq pain TECHNIQUE: Imaging protocol: XR of the abdomen. Views: Frontal supine view of the abdomen. 1 View. COMPARISON: CT ABDOMEN PELVIS W 06/12/2020 1:34 AM FINDINGS: Gastrointestinal tract: There is moderate colonic stool burden. Some focal gas-filled loops of distal transverse colon. No obstruction. No mucosal thickening. Atherosclerotic calcifications in the pelvis. Bones/joints: Unremarkable. IMPRESSION: Moderate colonic stool burden which may correlate with clinical symptoms of constipation. Dictated and Authenticated by: Noemi Pretty MD. Ordering:ASUNCION Sheets MD
[2020-06-16] MEDS: Polyethylene Glycol 3350 17 GM PACKET PO (13:48)
[2020-06-16 14:07] VITALS: BP 122/85; PULSE 87; RESP 18; TEMP 36.6; O2SAT 93
[2020-06-16 15:34] VITALS: BP 138/87; PULSE 67; RESP 15; TEMP 36.7; O2SAT 90
[2020-06-16] MEDS: Bisacodyl 5 MG TABEC PO (15:40)
[2020-06-16] MEDS: Docusate Sodium 100 MG CAP PO (15:41)
[2020-06-16] MEDS: Senna TAB 1 TAB PO (15:41)
[2020-06-16 20:41] VITALS: BP 140/86; PULSE 68; RESP 16; TEMP 37; O2SAT 91
[2020-06-16] MEDS: Amitriptyline 25 MG TAB PO (22:32)
[2020-06-17 00:20] VITALS: BP 134/69; PULSE 71; RESP 14; TEMP 36; O2SAT 97
[2020-06-17 05:28] LABS: *AMPHETAMINES SCREEN URINE Negative (Negative); *BARBITURATES SCREEN URINE Negative (Negative); *BENZODIAZEPINES SCREEN URINE POSITIVE (Negative); Cannabinoids THC Negative (Negative); Cocaine Screen,Urine Negative (Negative); METHADONE URINE SCREEN POSITIVE (Negative); OPIATES URINE SCREEN POSITIVE (Negative)
[2020-06-17 05:32] LABS: Tricyclic Antidepressants POSITIVE (Negative)
[2020-06-17 06:47] LABS: Platelet Count 192 10^3/uL (130-400)
[2020-06-17 06:51] LABS: Anion Gap 6.9 mmol/L (3-11); BUN 6 mg/dL (7-18); CO2 28.1 mmol/L (21.0-32.0); CREATININE 0.9 mg/dL (0.70-1.30); Calcium 9.2 mg/dL (8.5-10.1); Chloride 103 mmol/L (98-107); Glucose 108 mg/dL (74-106); Potassium 4.2 mmol/L (3.5-5.1); Sodium 138 mmol/L (136-145)
[2020-06-17 07:57] VITALS: BP 113/69; PULSE 80; RESP 17; TEMP 36.9; O2SAT 94
[2020-06-17] MEDS: Nicotine 21 MG/24 HR PATCH TD (08:30)
[2020-06-17] MEDS: Polyethylene Glycol 3350 17 GM PACKET PO (08:30)
[2020-06-17] MEDS: Enoxaparin 40 MG/0.4 ML SYR SC (08:31)
[2020-06-17] MEDS: Normal Saline Flush 10 ML SYR IVP ×2 (08:31→21:00)
[2020-06-17] MEDS: Pantoprazole 40 MG VIAL IVP ×2 (08:31→21:00)
[2020-06-17] MEDS: Multivitamin w/Minerals TAB 1 TAB PO (08:32)
[2020-06-17] MEDS: Bisacodyl 5 MG TABEC PO (08:32)
[2020-06-17] MEDS: Docusate Sodium 100 MG CAP PO ×2 (08:32→21:00)
[2020-06-17] MEDS: Folic Acid 1 MG TAB PO (08:32)
[2020-06-17] MEDS: FLUoxetine 20 MG CAP 60 MG PO (08:32)
[2020-06-17] MEDS: Thiamine 100 MG TAB PO (08:32)
[2020-06-17] MEDS: Methadone Liquid 10 MG/ML 75 MG PO (08:36)
[2020-06-17] MEDS: Senna TAB 1 TAB PO ×2 (08:53→21:00)
--- NOTE | 2020-06-17 10:03 | PDOC.CMPRO ---
- If Service Date Differs Date of service: 06/17/20 Time of Service: 10:03 Care Management Progress Note S/O: Jose Enrique is sitting up in a chair eating his breakfast when CM comes to meet with him. He is pleasant and reports he is feeling much better today. He is able to tolerate a regular diet and reports decreased abdominal pain. CM coordinates a telephone call between Jose Enrique and the [employer] Supervisor, as he is amenable to speaking with them to obtain support in achieving sobriety. CM will continue to follow. A: Jose Enrique is a 40 year old male admitted to [facility] on 06/12/2020 with abdominal pain. P: No change in plan. Jose Enrique will likely discharge home with no new services when medically cleared by provider. He will follow up with his community providers and plan of care as directed. Transport will be provided by family/friends via private vehicle vs RCT coordinated by CM when ready. CM will continue to support Jose Enrique and his discharge planning needs.
--- NOTE | 2020-06-17 11:33 | W.PM.PROGNOT ---
Date of Service Date of service: 06/17/20 Time of Service: 11:34 Assessment and Plan Assessment and plan (1) Alcohol withdrawal delirium: Status: Acute Assessment and plan: Still withdrawing, but appears to be doing better today. Not ready for discharge home. Conitnue monitoring on CIWA with with prn PO ativan, thiamine, folate, MVI (2) Constipation: Status: Acute Assessment and plan: Continue aggressive bowel regimen (3) Colitis: Status: Acute Assessment and plan: Clinically this is better. Tolerating PO. Await BM (4) Superficial thrombophlebitis: Status: Acute Assessment and plan: Warm compresses. Continue VTE prophylaxis (5) Choledocholithiasis: Status: Resolved Assessment and plan: Agree that he likely passed the stone. Had a dilated CBD but no definitive stone or mass noted. Per GI at [facility]: no intervention/ERCP indicated. (6) DVT prophylaxis: Status: Acute Assessment and plan: SC lovenox (7) Discharge planning issues: Status: Acute Assessment and plan: Full code Continues to require hospitalization I have spoken with care management about getting the patient a cross country and track and field coach. Subjective Subjective Interval history since last seen: Mr Mcbride states that he is feeling a little better today. He only hallucinated this morning - none so far since. Abdominal pain is better. He did take his bowel meds today. Still no BM, however. Denies dizziness, chest pain, shortness of breath, nausea. Still having some abdominal pain in LUQ and RUQ, especially when he takes a deep breath, but this pain is better. States he has never gone through full alcohol withdrawal before. Typically, he states he would go home after a brief stay in the hospital and resume drinking. He would still hallucinate sometimes even when starting to drink, but this would fully go away shortly. He does not know how long his alcohol withdrawal would normally last. He is interested in talking to a cross country and track and field coach. Exam Narrative Exam Narrative: General: Pleasant soft-spoken male, looks more alert, not hallucinating wiht me in the room HEENT: EOMI, MMM Heart: RRR, no m/r/g Lungs: CTAB Abdomen: soft, less tender in LUQ, mild tenderness in RUQ, +BS Extremities: no edema BLEs Objective Last Vital Signs Temp 36.9 C 06/17/20 07:57 Pulse 80 06/17/20 07:57 Resp 17 06/17/20 07:57 BP 113/69 06/17/20 07:57 Pulse Ox 94 06/17/20 07:57 Laboratory Results - last 24 hr 06/17/20 06/17/20 06/17/20 04:40 06:13 06:13 Plt Count 192 Sodium 138 Potassium 4.2 Chloride 103 Carbon Dioxide 28.1 Anion Gap 6.9 BUN 6 L Creatinine 0.9 Estimated GFR/1.73 m2 >= 60.00 Glucose 108 H Calcium 9.2 Magnesium 2.0 Urine Opiates Screen Positive A Urine Methadone Screen Positive A Ur Barbiturates Screen Negative Ur Tricyclics Screen Positive A Ur Amphetamines Screen Negative U Benzodiazepines Scrn Positive A Urine Cocaine Screen Negative Ur THC Screen Negative
[2020-06-17 16:01] VITALS: BP 125/74; PULSE 56; RESP 16; TEMP 36.7; O2SAT 96
[2020-06-17] MEDS: Amitriptyline 25 MG TAB PO (21:00)
[2020-06-17] MEDS: LORazepam 1 MG TAB PO/SL (21:01)
[2020-06-18 00:47] VITALS: BP 137/79; PULSE 63; RESP 16; TEMP 36.9; O2SAT 97
[2020-06-18] MEDS: LORazepam 1 MG TAB PO/SL ×4 (00:56→20:31)
[2020-06-18 07:32] VITALS: BP 147/87; PULSE 62; RESP 18; TEMP 36.7; O2SAT 96
[2020-06-18] MEDS: Enoxaparin 40 MG/0.4 ML SYR SC (08:19)
[2020-06-18] MEDS: Polyethylene Glycol 3350 17 GM PACKET PO (08:19)
[2020-06-18] MEDS: Methadone Liquid 10 MG/ML 75 MG PO (08:19)
[2020-06-18] MEDS: Thiamine 100 MG TAB PO (08:20)
[2020-06-18] MEDS: Docusate Sodium 100 MG CAP PO ×2 (08:20→20:32)
[2020-06-18] MEDS: Pantoprazole 40 MG VIAL IVP ×2 (08:20→20:30)
[2020-06-18] MEDS: FLUoxetine 20 MG CAP 60 MG PO (08:20)
[2020-06-18] MEDS: Senna TAB 1 TAB PO ×2 (08:20→20:32)
[2020-06-18] MEDS: Multivitamin w/Minerals TAB 1 TAB PO (08:20)
[2020-06-18] MEDS: Folic Acid 1 MG TAB PO (08:20)
[2020-06-18] MEDS: Normal Saline Flush 10 ML SYR IVP ×2 (08:20→20:31)
[2020-06-18] MEDS: Nicotine 21 MG/24 HR PATCH TD (08:22)
--- NOTE | 2020-06-18 09:50 | PDOC.CMPRO ---
- If Service Date Differs Date of service: 06/18/20 Time of Service: 09:50 Care Management Progress Note S/O: Arron was lying in bed when CM met with him. He admitted to being sleepy from the Ativan he received a short time earlier. Arron stated that he continues to have abdominal pain requiring medication. He also stated that he is not sleeping well. Per report, over the weekend Arron was experiencing visual and auditory hallucinations. When CM asked about this Arron admitted that he sometimes hears distant voices but knows they are not staff on the unit. It's different. He also shared that at times he sees things that aren't there. He used an example of offering someone something in his hand which was not actually there; only he could see the object. Arron maintains that he has never had this happen before and that he has also never withdrawn from alcohol before so he associates the hallucinations with withdrawal. A: Jose Enrique is a 40 year old male admitted to [facility] on 06/12/2020 with abdominal pain. P: Jose Enrique will likely discharge home with no new services when medically cleared by provider. He will follow up with his community providers and plan of care as directed. Transport will be provided by family/friends via private vehicle when ready. CM will continue to support Jose Enrique and his discharge planning needs.
[2020-06-18 10:53] VITALS: BP 116/76; PULSE 65; RESP 18; TEMP 36.6; O2SAT 95
--- NOTE | 2020-06-18 11:34 | NUR.NOTE ---
pt is refusing bisacodyl at this time.Nursing Note:
--- NOTE | 2020-06-18 12:34 | W.PM.PROGNOT ---
Date of Service Date of service: 06/18/20 Time of Service: 12:40 Assessment and Plan Assessment and plan (1) Alcohol withdrawal delirium: Start date: 06/18/20 Start time: 12:50 Status: Acute Assessment and plan: Still withdrawing, but appears to be doing better today. Not ready for discharge home. Conitnue monitoring on CIWA with with prn PO ativan, thiamine, folate, MVI (2) Constipation: Start date: 06/18/20 Start time: 12:50 Status: Acute Assessment and plan: Continue aggressive bowel regimen (3) Colitis: Start date: 06/18/20 Start time: 12:50 Status: Acute Assessment and plan: Clinically this is better. Tolerating PO. Await BM (4) Superficial thrombophlebitis: Start date: 06/18/20 Start time: 12:50 Status: Acute Assessment and plan: Warm compresses. Continue VTE prophylaxis (5) Choledocholithiasis: Start date: 06/18/20 Start time: 12:50 Status: Resolved Assessment and plan: Agree that he likely passed the stone. Had a dilated CBD but no definitive stone or mass noted. [place] [facility] [place]CP indicated. (6) DVT prophylaxis: Start date: 06/18/20 Start time: 12:50 Status: Acute Assessment and plan: SC lovenox (7) Discharge planning issues: Start date: 06/18/20 Status: Acute Assessment and plan: Full code Continues to require hospitalization I have spoken with care management about getting the patient a disaster recovery coordinator. He was seen by one yesterday evening. above case discussed with Dr. Lee Subjective Subjective Interval history since last seen: continues to have hallucinations. also states dizziness and velásquez in which morphine helps, CIWA of 7. He has not had bm will order suppository. He denies CP, SOB, N/V/D Exam Narrative Exam Narrative: General: Pleasant soft-spoken male, looks more alert, not hallucinating wiht me in the room HEENT: EOMI, MMM Heart: RRR, no m/r/g Lungs: CTAB Abdomen: soft, less tender in LUQ, mild tenderness in RUQ, +BS Extremities: no edema BLEs Objective Last Vital Signs Temp 36.6 C 06/18/20 10:53 Pulse 65 06/18/20 10:53 Resp 18 06/18/20 10:53 BP 116/76 06/18/20 10:53 Pulse Ox 95 06/18/20 10:53
[2020-06-18 15:36] VITALS: BP 124/71; PULSE 54; RESP 16; TEMP 36.6; O2SAT 94
[2020-06-18] MEDS: Bisacodyl 10 MG SUPP PR (17:58)
[2020-06-18] MEDS: Amitriptyline 25 MG TAB PO (22:22)
[2020-06-18 23:00] VITALS: BP 115/72; PULSE 62; RESP 17; TEMP 36.6; O2SAT 97
[2020-06-19 07:37] VITALS: BP 131/82; PULSE 56; RESP 14; TEMP 36.1; O2SAT 100
[2020-06-19] MEDS: Polyethylene Glycol 3350 17 GM PACKET PO ×2 (09:14→20:49)
[2020-06-19] MEDS: Nicotine 21 MG/24 HR PATCH TD (09:14)
[2020-06-19] MEDS: Enoxaparin 40 MG/0.4 ML SYR SC (09:15)
[2020-06-19] MEDS: Folic Acid 1 MG TAB PO (09:17)
[2020-06-19] MEDS: Senna TAB 1 TAB PO ×2 (09:17→20:49)
[2020-06-19] MEDS: Docusate Sodium 100 MG CAP PO ×2 (09:17→20:49)
[2020-06-19] MEDS: Bisacodyl 5 MG TABEC PO ×2 (09:18→20:49)
[2020-06-19] MEDS: Methadone Liquid 10 MG/ML 75 MG PO (09:18)
[2020-06-19] MEDS: Thiamine 100 MG TAB PO (09:18)
[2020-06-19] MEDS: Multivitamin w/Minerals TAB 1 TAB PO (09:18)
[2020-06-19] MEDS: Pantoprazole 40 MG VIAL IVP ×2 (09:21→20:47)
[2020-06-19] MEDS: Normal Saline Flush 10 ML SYR IVP ×2 (09:21→20:47)
[2020-06-19] MEDS: FLUoxetine 20 MG CAP 60 MG PO (09:24)
[2020-06-19] MEDS: Bisacodyl 10 MG SUPP PR (09:55)
[2020-06-19] MEDS: Milk of Magnesia 30 ML CUP PO (09:55)
--- NOTE | 2020-06-19 10:48 | CMPROGNOTE_ITS ---
- If Service Date Differs Date of service: 06/19/20 Time of Service: 10:48 Care Management Progress Note S/O: Arron was lying in bed when CM met with him. He stated that he still has a headache and periods of anxiety. He has spoken with a rhythmic gymnastics coach and plans to connect with her again later in the day. Per provider, Arron may be ready for discharge in another day or 2. He informed CM that he had a small BM today and that his abdominal pain is better. Its more like a deep ache. A: Jose Enrique is a 40 year old male admitted to [facility] on 06/12/2020 with abdominal pain. P: Jose Enrique will likely discharge home with no new services when medically cleared by provider. He will follow up with his community providers and plan of care as directed. Transport will be provided by family/friends via private vehicle when ready. CM will continue to support Jose Enrique and his discharge planning needs.
[2020-06-19] MEDS: LORazepam 1 MG TAB PO/SL ×2 (11:28→18:07)
--- NOTE | 2020-06-19 12:09 | NUR.NOTE ---
Nursing Note:Nursing checked on Pt, he is lying in bed with pillow over head, doesn't remove pillow or engage with nursing. Nursing asked pt how he was doing; he Pt reports feeling anxious, think it's from withdrawl. Not time for more ativan yet. Pt wants to take a nap and asked to not be disturbed so he could sleep.
--- NOTE | 2020-06-19 13:34 | W.PM.PROGNOT ---
Date of Service Date of service: 06/19/20 Time of Service: 13:34 Assessment and Plan Assessment and plan (1) Alcohol withdrawal delirium: Status: Acute Assessment and plan: CIWA /05/13 overnight. hemodynamically stable. still reporting hallucinations but no other symptoms will add prn seroquel Conitnue monitoring on CIWA with with prn PO ativan, thiamine, folate, MVI (2) Constipation: Status: Acute Assessment and plan: Continue aggressive bowel regimen (3) Colitis: Status: Acute Assessment and plan: Clinically this is better. Tolerating PO. Await BM (4) Superficial thrombophlebitis: Status: Acute Assessment and plan: Warm compresses. Continue VTE prophylaxis (5) Choledocholithiasis: Status: Resolved Assessment and plan: he likely passed the stone. Had a dilated CBD but no definitive stone or mass noted. Per GI at [facility] [place]: no intervention/ERCP indicated. (6) DVT prophylaxis: Status: Acute Assessment and plan: SC lovenox (7) Discharge planning issues: Status: Acute Assessment and plan: Full code will likely be able to d/c in 1-2 days care management following, tissue recovery technician contacted and has made contact remotely. above case discussed with Dr. Lee Subjective Subjective Patient reports: no new complaints, still having pain, pain is less, tolerating liquids well, tolerating a regular diet, voiding w/o difficulty, no bowel movement and afebrile; denies nausea and vomiting Exam Const General: cooperative and no acute distress Nutritional Appearance: average body habitus Orientation: alert, oriented x3, oriented to person and oriented to place [facility] Head: normocephalic and atraumatic Eyes Sclera: sclerae normal Pupils: PERRL Resp Effort & Inspection: normal respiratory effort Auscultation: clear to auscultation bilaterally Cardio Rate: regular rate Rhythm: regular rhythm Heart Sounds: S1 normal and S2 normal GI Inspection: normal to inspection Palpation: soft and tender in the epigastrum and in the LUQ; with no rebound tenderness Skin General skin exam: no rashes or lesions noted Neuro General: patient awake, moves all extremities and no focal motor deficits Cognition: normal cognition Speech: speech normal Extrem General: no pedal edema, no calf tenderness and calf tenderness Psych Appearance: grossly normal Mental Status: mental status grossly normal Speech and Movement: speech and movement normal and delayed speech Affect: blunted Attitude: cooperative Objective Last Vital Signs Temp 36.1 C L 06/19/20 07:37 Pulse 56 L 06/19/20 07:37 Resp 14 06/19/20 07:37 BP 131/82 06/19/20 07:37 Pulse Ox 100 06/19/20 07:37
[2020-06-19 16:15] VITALS: BP 112/68; PULSE 61; RESP 18; TEMP 37; O2SAT 97
--- NOTE | 2020-06-19 18:08 | NUR.NOTE ---
Nursing Note: Pt has all 4 rails up on bed. request they stay up. He is able to put them up and down on his own.
[2020-06-19] MEDS: QUEtiapine 25 MG TAB 12.5 MG PO (20:50)
[2020-06-19] MEDS: Amitriptyline 25 MG TAB PO (21:59)
[2020-06-19 23:38] VITALS: BP 106/67; PULSE 74; RESP 18; TEMP 36.9; O2SAT 97
[2020-06-20] MEDS: LORazepam 1 MG TAB PO/SL (02:18)
[2020-06-20 07:31] VITALS: BP 127/55; PULSE 54; RESP 12; TEMP 36.4; O2SAT 98
[2020-06-20 07:43] LABS: Platelet Count 254 10^3/uL (130-400)
[2020-06-20] MEDS: Pantoprazole 40 MG VIAL IVP ×2 (08:30→20:41)
[2020-06-20] MEDS: Nicotine 21 MG/24 HR PATCH TD (08:31)
[2020-06-20] MEDS: Polyethylene Glycol 3350 17 GM PACKET PO ×2 (08:32→20:41)
[2020-06-20] MEDS: Enoxaparin 40 MG/0.4 ML SYR SC (08:32)
[2020-06-20] MEDS: Methadone Liquid 10 MG/ML 75 MG PO (08:33)
[2020-06-20] MEDS: FLUoxetine 20 MG CAP 60 MG PO (08:34)
[2020-06-20] MEDS: Docusate Sodium 100 MG CAP PO ×2 (08:34→20:41)
[2020-06-20] MEDS: Multivitamin w/Minerals TAB 1 TAB PO (08:34)
[2020-06-20] MEDS: Senna TAB 1 TAB PO ×2 (08:34→20:41)
[2020-06-20] MEDS: Thiamine 100 MG TAB PO (08:34)
[2020-06-20] MEDS: Folic Acid 1 MG TAB PO (08:34)
[2020-06-20] MEDS: Methylnaltrexone 12 MG/0.6 ML VIAL SC (09:14)
[2020-06-20] MEDS: Normal Saline Flush 10 ML SYR IVP ×2 (09:20→20:41)
--- NOTE | 2020-06-20 10:18 | CMPROGNOTE_ITS ---
- If Service Date Differs Date of service: 06/20/20 Time of Service: 10:18 Care Management Progress Note S/O: Arron was lying in bed when CM met with him. He was wide awake and stated that he felt OK. He admitted that he still has some abdominal pain but that it is better as is his headache. Arron shared that he was able to have a large BM today and that helped with the abdominal discomfort. 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 A: Jose Enrique is a 40 year old male admitted to [facility] on 06/12/2020 with abdominal pain. P: Jose Enrique will likely discharge home with no new services when medically cleared by provider. He will follow up with his community providers and plan of care as directed. Transport will be provided by family/friends via private vehicle when ready. CM will continue to support Jose Enrique and his discharge planning needs.
--- NOTE | 2020-06-20 14:36 | IN_ITS ---
Date of service: 06/20/20 Time of Service: 14:36 PT Notes Visit Reasons: ABDOMINAL PAIN, ALCOHOL WITHDRAWAL Physical Therapy Inpatient Initial Evaluation Date: 06/20/2020 Referring Doctor: Stephanie Don NP PT Orders: PT CONSULT: Eval/Treat. Precautions: Fall. Standard. ACtivity as tolerated. Patient Profile/Admitting Diagnosis: Jose Enrique is a 40-year-old male who presented to the ED on 06/12/2020 with abdominal pain, vomiting, and tremors. Patient is diagnosed with EtOH withdrawal delirium, constipation, colitis, superficial thrombophlebitis of the left greater saphenous vein, and choledocholelithiasis (resolved). PMHX: Unremarkable Social History/Home Situation: Lives with step father in a private home with no steps to enter. Independent with all aspects of ADLs prior to admission. Per ED notes, patient drinks 8 bottles of [place] hard lemonade per day. States that mother recently passed in March 2020. Equipment Owned/DME: None Subjective: Agreeable to PT consult. Reports being hazy during ambulation activity. Denies headache, chest pain, and dizziness throughout. Objective: General Observation: Supine in bed. No lines attached. Mental Status: Alert and oriented x4 Pain: None reported ROM: Right Upper Extremity: Shoulder Flexion WFL. Shoulder abduction WFL. Elbow flexion WFL. Wrist flexion WFL. Opening and closing of hand WFL. Left Upper Extremity: Shoulder Flexion WFL. Shoulder abduction WFL. Elbow flexion WFL. Wrist flexion WFL. Opening and closing of hand WFL. Right Lower Extremity: Hip flexion WFL. Hip abduction WFL. Knee flexion WFL. Ankle dorsiflexion WFL. Ankle plantarflexion WFL. Left Lower Extremity: Hip flexion WFL. Hip abduction WFL. Knee flexion WFL. Ankle dorsiflexion WFL. Ankle plantarflexion WFL. Strength: Right Upper Extremity: Shoulder flexors 5/5. Shoulder abductors 5/5. Elbow flexors 5/5. Elbow extensors 5/5. Can Closing Machine Tender strong. Left Upper Extremity: Shoulder flexors 5/5. Shoulder abductors 5/5. Elbow flexors 5/5. Elbow extensors 5/5. Can Closing Machine Tender strong. Right Lower Extremity: Hip flexors 5/5. Hip abductors 5/5. Knee flexors 5/5. Knee extensors 5/5. Ankle dorsiflexors 5/5. Ankle plantarflexors 5/5. Left Lower Extremity:Hip flexors 5/5. Hip abductors 5/5. Knee flexors 5/5. Knee extensors 5/5. Ankle dorsiflexors 5/5. Ankle plantarflexors 5/5. Sensation: Intact as to pain and pressure on bilateral lower extremities. Bed Mobility/Transfers: Rolling independent Supine to sit independent Sit to supine independent Sit to stand independent Stand to sit independent Bed to chair independent Chair to bed independent Gait: Guided patient through level surface ambulation of up to 300 feet using no assistive device with full weightbearing requiring only standby assist with complaints of being hazy resulting to decreased laura but no report of pain. Mild path deviation noted. Balance: Static Sitting: Normal Dynamic Sitting: Normal Static Standing: Good Dynamic Standing: Good Special Tests: Mobility Limitations Standardized Measure [facility]-PAC 6 clicks Basic Mobility Inpatient Short Form: Raw Score: 24 CMS Score: 0% deficit 4-stage Balance test: Able to maintain feet together, semitandem, and full tandem 10 seconds. Unable to maintain 1 legged stance for same duration. Informed Consent/Education: Patient instructed in purpose of PT consult and plan of care. Assessment: Jose Enrique is not at baseline yet with mobility ADL performance and will benefit from continued mobilization and exercise performance to facilitate full recovery from effects of EtOH withdrawal. We will plan on seeing patient for 1 or 2 more sessions for HEP education and advanced level balance exercises to facilitate return to community ambulation safely. Patient presents with clinical signs and symptoms consistent with current/admitting diagnoses that have resulted to mobility limitations, gait instability, generalized weakness, and impairment of motor control as demonstrated by the following impairment level findings: 1. Impaired standing balance 3. Impaired activity tolerance Impairments are contributing to the following functional limitations: 1. Inability to safely ambulate without standby assist 2. Increase completion time for mobility ADL performance 3. Increased fall risk Patient is assessed as a [id number] shanita Everett NP complexity based on the following: History: 40-year-old male with impairment level findings, functional limitations, and past medical history as indicated above Examination: Demonstrable impairment in strength, balance, and mobility level with underlying impairments and functional limitations as documented above Presentation: Evolving Decision Makin low complexity Goals: Goals X 1-2 more sessions 1. Independent gait on level surface without an assistive device for at least 1000 feet without report of pain nor dyspnea 2. Independent with home exercise program 3. Normal static and dynamic standing balance/tolerance Plan of Care/Treatment Plan: 1-2x/day, 7 days/week x 1 week. Plan of care has been reviewed with the WEBSITE DEVELOPER providing the service under Physical Therapy direction. Initiate Physical Therapy intervention for strengthening, bed mobility, transfers, gait, stairs, balance training, use of assistive device. DISCHARGE RECOMMENDATIONS: Home when medically cleared by hospitalist. No equipment needs at this time. TREATMENT CODE/TIME: 64870 x 25 minutes beginning at 14:36 PM. Thank you for the opportunity to participate in the care of this patient. Pallavi Lopez PT, DPT, CLT [facility] [place], [place]
--- NOTE | 2020-06-20 15:56 | W.PM.PROGNOT ---
Date of Service Date of service: 06/20/20 Time of Service: 15:56 Assessment and Plan Assessment and plan (1) Alcohol withdrawal delirium: Status: Acute Assessment and plan: CIWA 6 overnight. hemodynamically stable. still reporting hallucinations but no other symptoms continue prn seroquel Conitnue monitoring on CIWA with with prn PO ativan, thiamine, folate, MVI (2) Constipation: Status: Acute Assessment and plan: resolved with relistor, Continue aggressive bowel regimen (3) Colitis: Status: Resolved Assessment and plan: Clinically this is better. Tolerating PO. (4) Superficial thrombophlebitis: Status: Acute Assessment and plan: Warm compresses. Continue VTE prophylaxis (5) Choledocholithiasis: Status: Resolved Assessment and plan: he likely passed the stone. Had a dilated CBD but no definitive stone or mass noted. Per GI at [facility] [place]: no intervention/ERCP indicated. (6) DVT prophylaxis: Status: Acute Assessment and plan: SC lovenox (7) Discharge planning issues: Status: Acute Assessment and plan: Full code will likely be able to d/c tomorrow. care management following, reading recovery teacher contacted and has made contact remotely. above case discussed with Dr. Lee Subjective Subjective Patient reports: no new complaints, feels better, tolerating liquids well, tolerating a regular diet, voiding w/o difficulty, bowel movement (large after relistor) and afebrile Exam Const General: cooperative and no acute distress Nutritional Appearance: average body habitus Orientation: alert, oriented x3, oriented to person and oriented to place [facility] Head: normocephalic and atraumatic Eyes Sclera: sclerae normal Pupils: PERRL Resp Effort & Inspection: normal respiratory effort Auscultation: clear to auscultation bilaterally Cardio Rate: regular rate Rhythm: regular rhythm Heart Sounds: S1 normal and S2 normal GI Inspection: normal to inspection Palpation: soft and nontender Auscultation: normal bowel sounds Skin General skin exam: no rashes or lesions noted Neuro General: patient awake, moves all extremities and no focal motor deficits Cognition: normal cognition Speech: speech normal Extrem General: no pedal edema, no calf tenderness and calf tenderness on the left (improved) Psych Appearance: grossly normal Mental Status: mental status grossly normal Speech and Movement: speech and movement normal and delayed speech Affect: blunted Attitude: cooperative Objective Last Vital Signs Temp 36.4 C L 06/20/20 07:31 Pulse 54 L 06/20/20 07:31 Resp 12 06/20/20 07:31 BP 127/55 L 06/20/20 07:31 Pulse Ox 98 06/20/20 07:31 Laboratory Results - last 24 hr 06/20/20 07:15 Plt Count 254
[2020-06-20] MEDS: QUEtiapine 25 MG TAB 12.5 MG PO ×2 (16:07→20:49)
[2020-06-20 16:14] VITALS: BP 109/67; PULSE 55; RESP 18; TEMP 36.2; O2SAT 96
[2020-06-20] MEDS: Amitriptyline 25 MG TAB PO (20:41)
[2020-06-21 00:01] VITALS: BP 130/80; PULSE 64; RESP 18; TEMP 37.2; O2SAT 95
[2020-06-21 07:01] LABS: Abs Immature Grans 0.03 10^3/uL (0.0-0.06); Absolute Basophil Count 0.04 10^3/uL (0.0-0.2); Absolute Eosinophil Count 0.23 10^3/uL (0.0-0.7); Absolute Lymphocyte Count 1.64 10^3/uL (1.2-3.4); Absolute Neutrophil Count 2.67 10^3/uL (1.2-6.7); Basophils % 0.8; Eosinophils % 4.4; HCT 41.4 % (40.0-50.0); HGB 13.6 g/dL (13.5-17.5); Immature Grans % 0.6; Lymphocytes % 31.5; MCH 33.3 pg (27.0-33.0); MCHC 32.9 % (32.0-36.0); MCV 101.2 fL (80-95); MPV 8.9 fL (8.0-11.0); Monocytes % 11.5; Neutrophils % 51.2; Nucleated RBC 0 %; Platelet Count 279 10^3/uL (130-400); RBC 4.09 10^6/uL (4.36-5.78); RDW 12.9 % (11.8-14.1); RDW-SD 48.1 fL; WBC 5.21 10^3/uL (4.4-10.8)
[2020-06-21 07:20] LABS: ALT 96 U/L (16-63); AST 55 U/L (15-37); Albumin 3.3 g/dL (3.4-5.0); Alkaline Phosphatase 125 U/L (46-116); BUN 15 mg/dL (7-18); Bilirubin, Total 0.3 mg/dL (0.2-1.0); CREATININE 0.9 mg/dL (0.70-1.30); Calcium 9.4 mg/dL (8.5-10.1); Chloride 102 mmol/L (98-107); Glucose 103 mg/dL (74-106); Potassium 4.7 mmol/L (3.5-5.1); Sodium 137 mmol/L (136-145); Total Protein 7.2 g/dL (6.4-8.2)
[2020-06-21] MEDS: Thiamine 100 MG TAB PO (08:05)
[2020-06-21] MEDS: Multivitamin w/Minerals TAB 1 TAB PO (08:05)
[2020-06-21] MEDS: Docusate Sodium 100 MG CAP PO (08:06)
[2020-06-21] MEDS: Folic Acid 1 MG TAB PO (08:06)
[2020-06-21] MEDS: FLUoxetine 20 MG CAP 60 MG PO (08:06)
[2020-06-21] MEDS: Methadone Liquid 10 MG/ML 75 MG PO (08:06)
[2020-06-21] MEDS: Senna TAB 1 TAB PO (08:06)
[2020-06-21] MEDS: Enoxaparin 40 MG/0.4 ML SYR SC (08:07)
[2020-06-21] MEDS: Normal Saline Flush 10 ML SYR IVP (08:07)
[2020-06-21] MEDS: Nicotine 21 MG/24 HR PATCH TD (08:08)
[2020-06-21] MEDS: Pantoprazole 40 MG VIAL IVP (08:08)
[2020-06-21 08:18] VITALS: BP 127/81; PULSE 59; RESP 20; TEMP 36.3; O2SAT 95
--- NOTE | 2020-06-21 10:51 | W.NUTRFU ---
Date of service: 06/21/20 Time of Service: 10:51 Nutritional Follow up NOTE: Jose Enrique has been advanced to regular diet- tolerating well and meeting nutrient needs for weight maintenance. Alcohol withdrawl complicated by delirium, choledocholithiasis(resolved) and constipation(resolved). Not considered at nutritional risk at this time. Supplemented with MVI, thiamin and folic acid for repletion. Will continue to follow. Time Spent in Nutritional Counseling and Treatment: 0
[2020-06-21] MEDS: Acetaminophen 325 MG TAB 650 MG PO (10:55)
[2020-06-21] MEDS: Benzocaine 20% Gel 30 GM JAR MM (12:29)
[2020-06-21] MEDS: Penicillin V POTASSIUM 500 MG TAB PO (12:29)
--- NOTE | 2020-06-21 13:52 | DSE_ITS ---
Date of service: 06/21/20 Time of Service: 13:52 DS: Diagnosis Discharge Diagnosis (1) Alcohol withdrawal delirium: Status: Acute (2) Constipation: Status: Acute (3) Colitis: Status: Resolved (4) Superficial thrombophlebitis: Status: Acute (5) Choledocholithiasis: Status: Resolved Discharge Plan Disposition Patient Disposition: HOME Condition: Stable Discharge Details Reason For Visit: ABDOMINAL PAIN, ALCOHOL WITHDRAWAL Admit Date/Time: 06/12/20 03:22 Admit Provider: Paco Tiwari Attending Provider: Paco Tiwari Primary Care Provider: Glendy Cohen [facility] Hospital Course: This is a 40 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 In ER findings of note for absence of fever or leukocytosis; ALT 186, AST 206, TBili 2.3, Alk Phos [address] showing dilated CBD to 9mm with non-calcified hypoattentuation in distal CBD. Pancreas unremarkable. Case was reviewed with [facility] [place] and was supposed the be transferred for ERCP but he questionably passed a stone; presented with CBD dilatation. His Bilirubin has normalized and LFTs continue to trend toward normal. His epigastric and LUQ pain is likely from colitis which all resolved. He did experience withdrawal and was monitored on ciwa receiving prn ativan. he experienced hallucinations ongoing for days but this resolved. his hospital course was complicated with constipation which did not respond well to usual bowel regimen and was given relistor with good effect of a large bowel movement. he is now stable and ready for discharge to home. he will follow up with head field hockey coach and reports he will abstain from etoh. he is reporting dental pain and will be treated for dental abscess. he has extremely poor dentition and reports that he has a dentist who follows him. discharge discussed with Dr Lee Home Meds and New Rx's Prescriptions: New penicillin V potassium 500 mg Tablet 500 mg PO Q6H Qty: 28 RF: 0 Continued valacyclovir 500 MG tablet 1,000 mg PO QDAY RF: 0 alum-mag hydroxide-simeth [Maalox Advanced] 355 ML suspension 15 ml PO Q6H PRN PRNRF: 0 terbinafine HCl 15 GM cream 1 applic Topical BID Qty: 1 RF: 0 cyclobenzaprine 10 MG tablet 10 mg PO TID PRN PRNRF: 0 methadone 10 MG/ML concentrate 75 mg PO DAILY RF: 0 albuterol sulfate 8.5 GM HFA aerosol inhaler 8.5 gm Inhalation QID PRN (Reason: Cough) Qty: 1 RF: 0 fluoxetine 20 mg capsule 60 mg PO DAILY RF: 0 amitriptyline 25 mg Tablet 25 mg PO HS RF: 0 pantoprazole 40 mg Tablet,Delayed Release (Dr/Ec) 40 mg PO DAILY RF: 0 acamprosate 333 mg Tablet,Delayed Release (Dr/Ec) 666 mg PO TID RF: 0 Discharge Instructions Instructions: Biliary Colic (ED), Dental Abscess (ED), Abuse of Alcohol (DC), Acute Nausea and Vomiting (DC) Additional Instructions: continue medication as directed avoid alcohol completely follow up with your head field hockey coach as discussed return for new or worsening symptoms see your dentist as soon as possible. Stand Alone Forms: Nursing Discharge Form Referrals: Glendy Cohen MD [Primary Care Provider] - 07/02/20 9:30 am Activity:: Activity as Tolerated Equipment/Supplies:: No Equipment Needed Diet:: As Tolerated Discharge Orders Discharge Orders: Discharge Order (Routine); Ordered 06/21/20 Ordered By: Stephanie Don Discharge Data Discharge Date/Time-TO BE ENTERED AT DEPARTURE: 06/21/20 15:02 DS: Summary Time Spent with Patient providing and/or coordinating discharge services: Greater than 30 minutes Status at Discharge Functional status at discharge: independent ambulation Overall status at discharge: patient is back to baseline Mental Status: mental status grossly normal Speech and Movement: speech and movement normal and delayed speech Mood: congruent mood Affect: blunted Exam Const General: cooperative, no acute distress and ill appearing (unkempt, older than stated age) chronically Nutritional Appearance: average body habitus Orientation: alert, awake and oriented x3 HENMT Head: normal to inspection, normocephalic and atraumatic Teeth and gingiva: abnormal tooth or associated gingiva (missing teeth, severe decay, ) Eyes Sclera: sclerae normal Pupils: PERRL Resp Effort & Inspection: normal respiratory effort Auscultation: clear to auscultation bilaterally Cardio Rate: regular rate Rhythm: regular rhythm Heart Sounds: S1 normal and S2 normal GI Inspection: normal to inspection Palpation: soft and nontender Auscultation: normal bowel sounds Skin General skin exam: no rashes or lesions noted Neuro General: patient awake, moves all extremities and no focal motor deficits Cognition: normal cognition Speech: speech normal Extrem General: no pedal edema, no calf tenderness and calf tenderness on the left (improved) Psych Appearance: grossly normal Mental Status: mental status grossly normal Speech and Movement: speech and movement normal and delayed speech Mood: congruent mood Affect: blunted Attitude: cooperative DS: Data Vitals/I&O Vitals and I&O: Vital Signs Temperature 36.3 C L 06/21/20 08:18 Temperature Source Tympanic 06/21/20 08:18 Pulse 59 L 06/21/20 08:18 Pulse Rhythm Regular 06/21/20 08:10 Pulse 77 06/14/20 09:30 Respiratory Rate 20 06/21/20 08:18 Respiratory Effort Non-Labored 06/21/20 08:10 Respiratory Depth Normal 06/21/20 08:10 Respiratory Pattern Normal 06/21/20 08:10 Blood Pressure 127/81 06/21/20 08:18 Blood Pressure Mean 118 06/14/20 09:01 Blood Pressure Position Supine 06/14/20 08:40 Pulse Oximetry 95 06/21/20 08:18 Oxygen Delivery Method Room Air 06/21/20 08:18 Oxygen Flow Rate 0 06/21/20 08:18 Pain Level 3 06/21/20 08:18 Comment 06/17/20 11:45 Intake & Output 06/20/20 06/21/20 06/21/20 23:59 11:59 23:59 Intake Total 480 / 720 240 / 240 Balance 480 / -80 240 / 240 Intake: Oral 480 / 720 240 / 240 Other: Urine Appearance Clear Comment pt voiding independently. Voiding Methods Toilet Toilet Data Completed and Pending Labs on day of discharge: Labs from last 24 hours 06/21/20 06/21/20 06:37 06:37 WBC 5.21 RBC 4.09 L Hgb 13.6 Hct 41.4 MCV 101.2 H MCH 33.3 H MCHC 32.9 RDW 12.9 Plt Count 279 MPV 8.9 Immature Gran % 0.6 Neutrophils % 51.2 Lymphocytes % 31.5 Monocytes % 11.5 Eosinophils % 4.4 Basophils % 0.8 Nucleated RBC % 0 Absolute Neutrophils 2.67 Absolute Lymphocytes 1.64 Absolute Monocytes 0.60 Absolute Eosinophils 0.23 Absolute Basophils 0.04 Sodium 137 Potassium 4.7 Chloride 102 Carbon Dioxide 28.0 Anion Gap 7.0 BUN 15 Creatinine 0.9 Estimated GFR/1.73 m2 >= 60.00 Glucose 103 Calcium 9.4 Total Bilirubin 0.3 AST 55 H ALT 96 H Alkaline Phosphatase 125 H Total Protein 7.2 Albumin 3.3 L PFSH Social History Smoking/Tobacco Use Status: Current every day Smoking risk assessment performed?: Yes Alcohol Intake: current Alcohol Intake frequency: 3 or more drinks per day Alcohol type: beer Drug use: Current Sobriety Substance use type: does not use Current gender identity: male Do you feel safe at home: Yes Do you feel safe in your relationship?: Yes
--- NOTE | 2020-06-21 17:21 | PDOC.CMDIS ---
- If Service Date Differs Date of service: 06/21/20 Time of Service: 17:21 LACE Index Scoring Tool - Questions: Length of Stay (in days): 7 - 13 Acuity (Admit via E.D.?): Yes E.D. Visits: 1 - Answers: Total Score: 9 Risk of Readmission: Low Risk Care Management Discharge Reason for Hospitalization: Abdominal pain Discharge Plan: Arron will discharge home with no new services. He will follow up with his PCP and providers at [facility]. Arron will transport home with his step father. Patient/Family Education Needs: Discharge plan, limitations, follow up plan, Ask Me Three
--- NOTE | 2020-06-22 09:32 | INDS_ITS ---
Date of service: 07/02/20 PT Notes Visit Reasons: ABDOMINAL PAIN, ALCOHOL WITHDRAWAL Physical Therapy Inpatient Discharge Summary Date: 06/22/2020 Dates of Service: 06/20/20 through 06/21/2020 Referring Doctor: Stephanie Don NP PT Orders: PT CONSULT: Eval/Treat. Precautions: Fall. Standard. Activity as tolerated. Patient Profile/Admitting Diagnosis: Jose Enrique is a 40-year-old male who presented to the ED on 06/12/2020 with abdominal pain, vomiting, and tremors. Patient is diagnosed with EtOH withdrawal delirium, constipation, colitis, superficial thrombophlebitis of the left greater saphenous vein, and choledocholelithiasis (resolved). PMHX: Unremarkable Social History/Home Situation: Lives with step father in a private home with no steps to enter. Independent with all aspects of ADLs prior to admission. Per ED notes, patient drinks 8 bottles of Padroni hard lemonade per day. States that mother recently passed in March 2020. Equipment Owned/DME: None Subjective: Less hazy today. Denies headache, chest pain, and dizziness throughout. Objective: General Observation: Sitting at edge of bed. No lines attached. Mental Status: Alert and oriented x4 Pain: None reported ROM: Right Upper Extremity: Shoulder Flexion WFL. Shoulder abduction WFL. Elbow flexion WFL. Wrist flexion WFL. Opening and closing of hand WFL. Left Upper Extremity: Shoulder Flexion WFL. Shoulder abduction WFL. Elbow flexion WFL. Wrist flexion WFL. Opening and closing of hand WFL. Right Lower Extremity: Hip flexion WFL. Hip abduction WFL. Knee flexion WFL. Ankle dorsiflexion WFL. Ankle plantarflexion WFL. Left Lower Extremity: Hip flexion WFL. Hip abduction WFL. Knee flexion WFL. Ankle dorsiflexion WFL. Ankle plantarflexion WFL. Strength: Right Upper Extremity: Shoulder flexors 5/5. Shoulder abductors 5/5. Elbow flexors 5/5. Elbow extensors 5/5. Blow Machine Tender Starch Spraying strong. Left Upper Extremity: Shoulder flexors 5/5. Shoulder abductors 5/5. Elbow flexors 5/5. Elbow extensors 5/5. Blow Machine Tender Starch Spraying strong. Right Lower Extremity: Hip flexors 5/5. Hip abductors 5/5. Knee flexors 5/5. Knee extensors 5/5. Ankle dorsiflexors 5/5. Ankle plantarflexors 5/5. Left Lower Extremity:Hip flexors 5/5. Hip abductors 5/5. Knee flexors 5/5. Knee extensors 5/5. Ankle dorsiflexors 5/5. Ankle plantarflexors 5/5. Sensation: Intact as to pain and pressure on bilateral lower extremities. Bed Mobility/Transfers: Rolling independent Supine to sit independent Sit to supine independent Sit to stand independent Stand to sit independent Bed to chair independent Chair to bed independent Gait: Guided patient through level surface ambulation of up to 300 feet using no assistive device with full weightbearing requiring only supervision with complaints of being hazy resulting to decreased laura but no report of pain. Mild path deviation noted. Balance: Static Sitting: Normal Dynamic Sitting: Normal Static Standing: Normal Dynamic Standing: Good Assessment: Patient demonstrates much stable gait pattern today and is discharged from PT services at highest functional level. Goals: Goals X 1-2 more sessions 1. Independent gait on level surface without an assistive device for at least 1000 feet without report of pain nor dyspnea NOT MET 2. Independent with home exercise program MET 3. Normal static and dynamic standing balance/tolerance MET DISCHARGE RECOMMENDATIONS: Home when medically cleared by hospitalist. No equipment needs at this time. TREATMENT CODE/TIME: 76959 x 20 minutes, 60477 x 13 minutes beginning at 9:32 AM. Thank you for the opportunity to participate in the care of this patient. Pallavi Lopez PT, DPT, CLT [facility] [place], [place]
== END 2020-06-21 15:02 | disposition home or self-care (01) | DRG 897 ==
LOC: ER 03:53 → ICU 03:56 → MS 06-14 14:13
PROVIDERS: Family Medicine; Internal Medicine; Nurse Practitioner Acute Care; Admitting Provider General Practice; Emergency Provider Student in an Organized Health Care Education/Training Program; PCP Family Medicine; Visit Provider General Practice
DX: F10.231 Alcohol dependence with withdrawal delirium (principal); F11.20 Opioid dependence, uncomplicated; K52.9 Noninfective gastroenteritis and colitis, unspecified; K80.50 Calculus of bile duct without cholangitis or cholecystitis without obstruction; K04.7 Periapical abscess without sinus; F17.210 Nicotine dependence, cigarettes, uncomplicated; I80.02 Phlebitis and thrombophlebitis of superficial vessels of left lower extremity; E86.0 Dehydration
CPT/HCPCS: 36415; 80048; 80053; 80307; 83690; 85027; 96361; 96365; 96366; 96375; 96376; 97110; 97161; 97530; 99223; 99232; 99233; 99239; 99285; J1650; 74018; 74177; 76700; 80320; 82247; 82248; 83735; 84075; 84450; 84460; 85025; 85049; 85610; 85730; 93971; 94667; J2060; J2270; J2405; J3490

== ENCOUNTER 2020-07-20 13:13 | Inpatient (IN) | payer MEDICAID, SELFPAY ==
[2020-07-20] VITALS (73 sets, daily range): BP systolic 134–184; BP diastolic 82–138; PULSE 73–113; RESP 13–30; TEMP 36.5–37; O2SAT 93–99
--- NOTE | 2020-07-20 13:15 | RT.EKG_ITS ---
APPROVED REPORT Exam: Resting ECG Patient Location: E HR:106 bpm ECG Measurements Heart Rate 106 AXIS NE [id number] P [id number] QRSd 105 QRS 68 QT 391 T 28 QTc 520 Conclusion Physician: Sinus,rate 106 no stemi, no significant elevation or depressions. QT prolonged
--- NOTE | 2020-07-20 13:22 | W.ED.GENAD ---
Discharge Plan Disposition Condition: Improving Discharge Details Chief Complaint: ETOHWithdr Admit Date/Time: 07/20/20 18:00 Admit Provider: Kortney Lee Attending Provider: Kortney Lee Primary Care Provider: Glendy Cohen ED Provider: Gogo Chin Discharge Instructions Activity:: Activity as Tolerated Equipment/Supplies:: No Equipment Needed Diet:: As Tolerated Discharge Orders Discharge Orders: Discharge Order (Routine); Ordered 07/25/20 Ordered By: Gideon Loving Discharge Data Discharge Date/Time-TO BE ENTERED AT DEPARTURE: 07/20/20 21:25 Medical Decision Making <MAKENZIE Rothman - Last Filed: 07/22/20 16:54> Patient is a 40-year-old male history significant for superficial thrombophlebitis, choledocholithiasis, DTs. He is presenting today with chief complaint of epigastric and lower chest pain. This began approximately 2 days ago. Since then, he has been unable to tolerate anything p.o. For this reason, he has not had any alcohol and is now feeling tremulous later when he has had DTs historically. Patient reports he typically drinks 10-15 alcoholic beverages per day. Patient is chronically on methadone. Does report snorting fentanyl today. Patient reports he has urinated once over the past 48 hours. Last bowel movement 3 days ago he reports that this does not unusual for him. Patient was seen here recently and he reports this feels quite similar. At that time, there was question of patient had choledocholithiasis as he did have an elevated bilirubin, transaminitis and imaging showing biliary ductal dilation. Patient was admitted to the hospital with plans for him to go to [facility] for an ERCP the patient seems to have passed the stone while inpatient was discharged to home without any interventions. On exam, patient is tremulous, anxious and appears very uncomfortable. Blood pressure is 171/116. Pulse of 113. Afebrile neuro maintaining his oxygen saturations. Patient with tachycardia, his cardiac exam is within normal limits. Lungs are clear in all leavitt. Patient is significantly tender with guarding of the right upper quadrant. Pain is also elicited in the epigastric and left upper quadrant region. No rashes appreciated. No tenderness elsewhere in the abdomen. History is most consistent with cholelithiasis, possibly choledocholithiasis. Patient has had pancreatitis historically, I also consider this in the differentials. The patient was initially endorsing chest pain, also considered ACS, particularly has been snorting medications. Did consider this could be cocaine induced as he is not completely clear on what medications to use. Patient appears to be having alcohol withdrawal and will treat with Ativan. Will manage discomfort. Plan for ultrasound of the abdomen as well laboratory evaluation. EKG was obtained and reviewed by Dr. Campos. Concern for QTc >500. Labs reviewed. No leukocytosis. Stable H&H. Coags within normal limits. Lactate slightly elevated at 1.6. CMP is significant for bilirubin of 1.4, this is down, here with similar issues last month from 2.3. AST 195, ALT 159, alk phos 350. Troponin within normal limits. Lipase within normal limits. Acutely given the patient's history, I am concerned for cholangitis and will obtain ultrasound. Patient continues to be tremulous presents with improvement with his first tenderness. Heart rate is now down into the 90s. Patient now reporting that his neck hurts but he states that this is that they would not be able to take Flexeril for his chronic neck tightness. We will give 5 mg IV Valium. FINDINGS: LIVER: Increased echogenicity, consistent with fatty infiltration. Somewhat heterogeneous echotexture.. No focal liver lesions are seen.. GALLBLADDER: No evidence of cholelithiasis. No evidence of wall thickening. No pericholecystic fluid identified. QUINTANA'S SIGN: Negative. BILIARY SYSTEM: No intrahepatic biliary ductal dilation. Common bile duct measures 7 millimeters. This is unchanged when compared with previous CT back to 2018. No common duct stone or mass is seen. KIDNEYS: Kidneys are symmetric in size. No evidence of renal calculi. No evidence of hydronephrosis. No renal mass or cyst identified. PANCREAS: Not well seen. SPLEEN: Not enlarged. ABDOMINAL AORTA AND IVC: Visualized portions normal caliber. ASCITES: None seen. IMPRESSION: Enlarged fatty liver. Stable mild common bile duct dilatation. No evidence of acute cholecystitis or common duct stone. FINDINGS: MEDIASTINUM: Normal. HEART: Normal. PULMONARY VASCULATURE: Normal. LUNGS: Clear. PLEURAL SPACE: No pleural effusion or pneumothorax. BONE:Normal. OTHER FINDINGS:Normal. IMPRESSION: No acute pulmonary findings. Labs reviewed. No leukocytosis. Hemoglobin 1.2. Coags are normal. Lactate 1 6. CMP significant for AST of 195, ALT 169, alk phos 356. This is quite similar to when he was admitted for similar last month. Troponin within normal limits. Will add on hepatitis panel. I discussed the findings with the patient. Given the findings of the ultrasound, I did consult with the hospitalist. We discussed risk and benefit of the CT scan. He did have a CTcompleted on his last admission. At this point, he did not show evidence to suggest a sending cholangitis or emergent surgical pathology. Patient's been afebrile with a normal white count. However, patient should be admitted for alcohol withdrawal and abdominal discomfort. Discussed this plan with the patient who is in agreement. Spoke with the hospitalist who agrees to admission. Hepatitis panel pending. <Abhijit Holcomb MD - Last Filed: 08/03/20 20:38> Patient seen, examined, and discussed with MAKENZIE Chin. I agree with treatment plan as discussed/documented. CIWA protocol initiated. Patient to be admitted to the hospitalist service for continued treatment of alcohol withdrawal. Hepatitis panel will be sent as this has not been checked recently. Patient agreeable with plan. HPI <MAKENZIE Rothman - Last Filed: 07/22/20 16:54> General Mode of arrival: ambulatory. Date/Time Provider Initiated Documentation: 07/20/20 13:22. Limitations to Documentation: no limitations. Information obtained by: patient, RN notes reviewed and old records reviewed. History of Present Illness 40 year old M presents to the emergency department with the chief complaint of Abdominal pain, nausea, vomiting, described as severe and similar to prior episodes, with intensity rated at 10. Quality is described as sharp, and is localized to the abdomen. Patient reports no radiation. Patient started experiencing this day(s) (2) and it has been constant. No relieving factors improve symptom(s), No exacerbating factors reported . Patient notes diaphoresis, fever/chills, headaches, loss of appetite and nausea/vomiting; denies chest pain, cough, rash, shortness of breath and weakness. Patient did receive the following treatments prior to arrival, none Related Data Home Medications Medication Instructions Recorded Confirmed valacyclovir 1,000 mg PO QDAY 09/08/12 07/20/20 alum-mag hydroxide-simeth [Maalox 15 ml PO Q6H PRN PRN 05/20/13 07/20/20 Advanced] terbinafine HCl 1 applic TOPICAL BID #1 tube 04/19/14 07/20/20 cyclobenzaprine 10 mg PO TID PRN PRN 08/15/14 07/20/20 albuterol sulfate 8.5 gm INHALATION QID PRN #1 02/14/15 07/20/20 hfa.aer.ad methadone 75 mg PO DAILY 02/20/15 07/20/20 fluoxetine 60 mg PO DAILY 06/12/20 07/20/20 acamprosate 666 mg PO TID 06/13/20 07/20/20 amitriptyline 25 mg PO HS 06/13/20 07/20/20 pantoprazole 40 mg PO DAILY 06/13/20 07/20/20 apixaban [Eliquis] 10 mg PO BID #0 tab 07/25/20 disulfiram 500 mg PO DAILY #14 tab 07/25/20 Previous Rx's Medication Instructions Recorded terbinafine HCl 1 applic TOPICAL BID #1 tube 04/19/14 albuterol sulfate 8.5 gm INHALATION QID PRN #1 02/14/15 hfa.aer.ad apixaban [Eliquis] 10 mg PO BID #0 tab 07/25/20 disulfiram 500 mg PO DAILY #14 tab 07/25/20 Allergies Allergy/AdvReac Type Severity Reaction Status Date / Time clindamycin Allergy Intermediate Hives Unverified 07/20/20 13:28 NSAIDS (Non-Steroidal AdvReac Intermediate perforated Unverified 07/20/20 13:28 Anti-Inflamma ulcer General SOLITARIO: 2 Review of Systems <MAKENZIE Rothman - Last Filed: 07/22/20 16:54> Constitutional Constitutional: Reports as per HPI, Reports chills, Reports excessive sweating, Reports fatigue, Denies fever(s), Reports headache(s), Reports lethargy, Reports malaise and Reports poor appetite ENT Ears, Nose, Mouth, and Throat: Reports headache(s) Cardiovascular Cardiovascular: Reports as per HPI, Denies chest pain and Denies dyspnea Respiratory Respiratory: Reports as per HPI, Denies cough and Denies dyspnea Gastrointestinal Gastrointestinal: Reports as per HPI Genitourinary Genitourinary: Denies system reviewed and no additional complaints, except as documented (patient denies any change in urinary habits) Musculoskeletal Musculoskeletal: Reports as per HPI and Denies back pain Integumentary/Breasts Skin/Breast: Reports as per HPI and Denies rash Neurologic Neurologic: Reports as per HPI and Reports headache(s) Endocrine Endocrine: Reports excessive sweating and Reports fatigue PFSH <MAKENZIE Rothman - Last Filed: 07/22/20 16:54> Medical History Alcohol abuse Alcohol withdrawal delirium Choledocholithiasis Colitis Common bile duct dilatation Constipation Peptic ulcer disease Perforated ulcer Superficial thrombophlebitis Surgical History H/O lumbar discectomy x2 History of esophagogastroduodenoscopy (EGD) S/P appendectomy Family History Mother Breast cancer Social History Smoking/Tobacco Use Status: Current every day Smoking risk assessment performed?: Yes Alcohol Intake: current Alcohol Intake frequency: 3 or more drinks per day Alcohol type: beer Drug use: Daily Substance use type: marijuana, heroin, painkillers and methamphetamine Current gender identity: male Do you feel safe at home: Yes Do you feel safe in your relationship?: Yes Exam <MAKENZIE Rothman - Last Filed: 07/22/20 16:54> Const General: cooperative, not healthy appearing, uncomfortable, well developed, anxious and ill appearing acutely Nutritional Appearance: average body habitus and well nourished Orientation: alert and awake [facility] Head: normal to inspection Mouth: moist mucous membranes Neck Neck: normal visual inspection, full ROM, no meningeal signs and trachea midline Resp Effort & Inspection: normal respiratory effort, able to speak in complete sentences and no respiratory distress Auscultation: clear to auscultation bilaterally, no rales, no rhonchi and no wheezes Cardio Rate: regular rate Rhythm: regular rhythm Heart Sounds: S1 normal and S2 normal GI Inspection: normal to inspection, no edema, non-distended, no obesity, no visible herniation and No caput medusae present Palpation: soft, no hepatosplenomegaly, not firm, guarding in the RUQ, no hernias, no masses, no pulsatile masses, not rigid and tender in the RUQ and Quintana's sign positive; not at McBurney's point and with no rebound tenderness Percussion: normal to percussion Auscultation: normal bowel sounds Back/Spine/Pelvis Back: no CVA tenderness Skin General skin exam: no rashes or lesions noted Trauma: no lacerations or abrasions Neuro General: patient alert and patient awake Cognition: normal cognition Speech: speech normal Gait: normal gait Motor: muscle tone normal throughout, strength 5/5 throughout and tremor (Diffuse) Extrem General: normal to inspection, no pedal edema and no calf tenderness Psych Appearance: grossly normal and disheveled Mental Status: mental status grossly normal Speech and Movement: restless Mood: anxious mood Affect: normal affect Attitude: cooperative Thought Process: normal Thought Content: normal Insight: fair Judgment: fair
--- NOTE | 2020-07-20 13:30 | DI.US_ITS ---
EXAM: US ABDOMEN CLINICAL HISTORY: RUQ pain TECHNIQUE: Ultrasound abdomen performed using standard protocol. COMPARISON: CT CHEST ABD PELVIS WITH CONTRAST from 10/26/2017 CT CHEST ABD PELVIS WITH CONTRAST from 10/26/[address] ABDOMEN PELVIS W from 06/12/[address] ABDOMEN PELVIS W from 06/12/2020 FINDINGS: LIVER: Increased echogenicity, consistent with fatty infiltration. Somewhat heterogeneous echotextur e.. No focal liver lesions are seen.. GALLBLADDER: No evidence of cholelithiasis. No evidence of wall thickening. No pericholecystic fluid identified. RUSHING'S SIGN: Negative. BILIARY SYSTEM: No intrahepatic biliary ductal dilation. Common bile duct measures 7 millimeters. This is unchanged when compared with previous CT back to 2017. No common duct stone or mass is seen. KIDNEYS: Kidneys are symmetric in size. No evidence of renal calculi. No evidence of hydronephrosis. No renal mass or cyst identified. PANCREAS: Not well seen. SPLEEN: Not enlarged. ABDOMINAL AORTA AND IVC: Visualized portions normal caliber. ASCITES: None seen. IMPRESSION: Enlarged fatty liver. Stable mild common bile duct dilatation. No evidence of acute cholecystitis o r common duct stone.. DATA REPOSITORY:
[2020-07-20] MEDS: Normal Saline 1,000 ML 1000 ML IV ×2 (13:35→15:10)
[2020-07-20 13:41] LABS: Abs Immature Grans 0.01 10^3/uL (0.0-0.06); Absolute Basophil Count 0.04 10^3/uL (0.0-0.2); Absolute Eosinophil Count 0.03 10^3/uL (0.0-0.7); Absolute Monocyte Count 0.46 10^3/uL (0.1-0.8); Absolute Neutrophil Count 3.56 10^3/uL (1.2-6.7); Basophils % 0.8; Eosinophils % 0.6; HCT 38.1 % (40.0-50.0); HGB 13.2 g/dL (13.5-17.5); Immature Grans % 0.2; Lymphocytes % 21.2; MCHC 34.6 % (32.0-36.0); MCV 95.3 fL (80-95); MPV 8.5 fL (8.0-11.0); Monocytes % 8.8; Neutrophils % 68.4; Nucleated RBC 0 %; Platelet Count 212 10^3/uL (130-400); RDW 13.9 % (11.8-14.1); RDW-SD 48.5 fL
[2020-07-20] MEDS: LORazepam 2 MG/ML VIAL 1 MG IVP ×2 (13:48→17:28)
[2020-07-20 13:50] LABS: Lipase 159 U/L (73-393)
[2020-07-20] MEDS: HYDROmorphone 2 MG/ML VIAL 1 MG IVP (13:53)
[2020-07-20 13:58] LABS: ALT 169 U/L (16-63); AST 195 U/L (15-37); Albumin 4.1 g/dL (3.4-5.0); Alkaline Phosphatase 356 U/L (46-116); BUN 5 mg/dL (7-18); Bilirubin, Total 1.4 mg/dL (0.2-1.0); CREATININE 0.7 mg/dL (0.70-1.30); Calcium 8.8 mg/dL (8.5-10.1); Chloride 101 mmol/L (98-107); Glucose 104 mg/dL (74-106); Potassium 3.9 mmol/L (3.5-5.1); Sodium 138 mmol/L (136-145); Total Protein 8.2 g/dL (6.4-8.2)
[2020-07-20 13:59] LABS: Troponin I < 0.05 ng/mL (<0.06)
[2020-07-20 14:09] LABS: Lactate 1.6 mmol/L (0.6-1.4)
[2020-07-20 14:13] LABS: INR 1.1 (0.9-1.1); PTT Activated 23.9 sec (21.0-27.5); Prothrombin Time 10.9 sec (9.3-11.0)
[2020-07-20] MEDS: diazePAM 10 MG/2 ML SYR 5 MG IVP (15:16)
--- NOTE | 2020-07-20 15:56 | DI.RAD_ITS ---
EXAM: XR CHEST 2V PA LATERAL CLINICAL HISTORY: CP TECHNIQUE: 2D digital imaging was performed. COMPARISON: CT CHEST ABD PELVIS WITH CONTRAST from 10/26/2017 FINDINGS: MEDIASTINUM: Normal. HEART: Normal. PULMONARY VASCULATURE: Normal. LUNGS: Clear. PLEURAL SPACE: No pleural effusion or pneumothorax. BONE:Normal. OTHER FINDINGS:Normal. IMPRESSION: No acute pulmonary findings. DATA REPOSITORY: RADIATION DOSE DELIVERED:
[2020-07-20 17:21] LABS: Bilirubin Negative (Negative); Blood Negative (Negative); Clarity Clear (Clear); Glucose Negative (Negative); Ketones Negative (Negative); Leukocyte Esterase Negative (Negative); Nitrite Negative (Negative); Urobilinogen 0.2 EU/dL (Up TO 0.2)
[2020-07-20 17:23] LABS: Troponin I < 0.05 ng/mL (<0.06)
[2020-07-20 17:32] LABS: Bilirubin, Direct 0.4 mg/dL (0.0-0.2)
[2020-07-20] MEDS: LORazepam 2 MG/ML VIAL IVP (18:23)
--- NOTE | 2020-07-20 20:02 | HPE_ITS ---
Date of service: 07/20/20 Time of Service: 20:02 Assessment and Plan Assessment and plan (1) Alcohol withdrawal delirium: Status: Acute Assessment and plan: Admit to ICU. Switch from prn benzodiazepines to phenobarbital, though without a loading dose as benzodiazepines are now on board. Provide IV fluids, vitamins, monitor on CIWA. (2) Abnormal LFTs: Status: Acute Assessment and plan: Suspect choledocholithiasis vs alcoholic hepatitis. Viral hepatitis is pending as well. Obtain MRCP unless clinically deteriorates prior to this - would require transfer to a tertiary care facility at that time. Right now there is no evidence of cholangitis. Discriminant function score is 0.9, inidicating good prognosis. (3) Abdominal pain: Status: Acute Assessment and plan: As above. Additionally, provide PPI. (4) Common bile duct dilatation: Status: Chronic Assessment and plan: Get MRCP. ?choledocholithiasis vs mass, etc. (5) Superficial thrombophlebitis: Status: Acute Assessment and plan: Present prior to this admission in L mid greater saphenous vein. Repeat US LLE. (6) DVT prophylaxis: Status: Acute Assessment and plan: SC heparin; (7) Discharge planning issues: Status: Acute Assessment and plan: Full code Admit to ICU. Total Critical Care Time 45 minutes. History of Present Illness History of Present Illness Chief Complaint: Abdominal pain, vomiting, unable to keep down alcohol, alcohol withdrawal Narrative: Mr Mcbride is a 40 year old male with PMHx of alcoholic pancreatitis, chronically dialated CBD, peptic ulcer disease, alcohol abuse and withdrawal without history of alcohol withdrawal seizures, as well as h/o LLE superficial thrombophlebitis who presented to [facility] ED today c/o abdominal pain, nausea, and vomiting x 2.5 days. The patient states that his symptoms prevented him from drinking alcohol, so his last drink was 2.5 days ago. The abdominal pain is epigastric and in RUQ. Emesis has been billious, and he has not seen any brennan blood or coffee grounds. He denies diarrhea/constipation. He does report that his left thigh continues to feel painful. He states that he started drinking again because he is said about the of his mother in March of 2020. 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 He states he has been taking his medications as prescribed. He cannot tell me what they are. He fills his medications in [facility] in [place]. His ED workup reveals elevated LFTs including bilirubin, lipase of 159 (normal), and stable dilatation of CBD on ultrasound without evidence of choledocholithiasis. His alcohol withdrawal has required administration of IV ativan as well as IV diazepam and the patient's last CIWA score is recorded to be 18 (it was up to 29). Hospitalists were asked to take over care. Mr Mcbride is getting admitted to the ICU. Review of Systems Narrative: Additionally, the patient denies symptoms of or exposure to anyone with confirmed COVID-19. He denies hallucinations at this time. Endorses chronic smoker's cough, but denies any changes to his cough. Endorses epigastric pain rather than chest pain. All systems reviewed & are unremarkable except as noted in HPI and below PFSH Medical History (Updated 07/20/20 @ 20:33 by Kortney Lee MD) Alcohol abuse Alcohol withdrawal delirium Choledocholithiasis Colitis Common bile duct dilatation Constipation Peptic ulcer disease Perforated ulcer Superficial thrombophlebitis Surgical History (Updated 07/20/20 @ 20:13 by Kortney Lee MD) H/O lumbar discectomy x2 History of esophagogastroduodenoscopy (EGD) S/P appendectomy Family History (Updated 07/20/20 @ 20:12 by Kortney Lee MD) Mother Breast cancer Social History Smoking/Tobacco Use Status: Current every day Smoking risk assessment performed?: Yes Alcohol Intake: current Alcohol Intake frequency: 3 or more drinks per day Alcohol type: beer Drug use: Daily Substance use type: marijuana, heroin, painkillers and methamphetamine Current gender identity: male Do you feel safe at home: Yes Do you feel safe in your relationship?: Yes Meds Home Medications and Allergies Allergies Allergy/AdvReac Type Severity Reaction Status Date / Time clindamycin Allergy Intermediate Hives Unverified 07/20/20 13:28 NSAIDS (Non-Steroidal AdvReac Intermediate perforated Unverified 07/20/20 13:28 Anti-Inflamma ulcer Home Medications Medication Instructions Recorded Confirmed Type valacyclovir 1,000 mg PO QDAY 09/08/12 07/20/20 History alum-mag hydroxide-simeth [Maalox 15 ml PO Q6H PRN PRN 05/20/13 07/20/20 History Advanced] terbinafine HCl 1 applic TOPICAL BID #1 tube 04/19/14 07/20/20 Rx cyclobenzaprine 10 mg PO TID PRN PRN 08/15/14 07/20/20 History albuterol sulfate 8.5 gm INHALATION QID PRN #1 02/14/15 07/20/20 Rx hfa.[email or web address].[email or web address] methadone 75 mg PO DAILY 02/20/15 07/20/20 History fluoxetine 60 mg PO DAILY 06/12/20 07/20/20 History acamprosate 666 mg PO TID 06/13/20 07/20/20 History amitriptyline 25 mg PO HS 06/13/20 07/20/20 History pantoprazole 40 mg PO DAILY 06/13/20 07/20/20 History penicillin V potassium 500 mg PO Q6H #28 tab 06/21/20 07/20/20 Rx Exam Narrative Exam Narrative: General: Diaphoretic tremulous middle-aged male who is cooperative, but does seem distracted/inattentive and promptly falls asleep during our conversation, jerking himself awake, A&Ox3 Neurological: A&ox3, tremulous, no focal deficits Psychiatric: inattentive/distracted Skin: Visible skin intact; diaphoretic HEENT: Atraumatic, normocephalic, EOMI, dry MM, clear oropharynx, no submandibular or cervical lymphadenopathy, no goiter or JVD Cardiovascular: RRR, no m/r/g, tachycardic (90s) Lungs: CTAB Gastrointestinal: soft, tender in RUQ with some rebound tenderness, tender in epigastrium, nondistended, + BS Genitourinary: deferred Extremities: no edema BLE's Results Imaging Additional studies: CXR: No acute pulmonary findings. US abdomen: Enlarged fatty liver. Stable mild common bile duct dilatation. No evidence of acute cholecystitis or common duct stone.. EKG: Sinus tach, HR 106, no acute ischemia, QTc interval of 520 msec. Labs Result diagrams: 07/20/20 13:28 07/20/20 13:23 Labs: Laboratory Results - last 24 hr 03/12/21 03/12/21 03/12/21 13:23 13:24 13:28 WBC RBC Hgb Hct MCV MCH MCHC RDW Plt Count MPV Immature Gran % Neutrophils % Lymphocytes % Monocytes % Eosinophils % Basophils % Nucleated RBC % Absolute Neutrophils Absolute Lymphocytes Absolute Monocytes Absolute Eosinophils Absolute Basophils PT 10.9 INR 1.1 APTT 23.9 VBG Lactate Sodium 138 Potassium 3.9 Chloride 101 Carbon Dioxide 26.0 Anion Gap 11.0 BUN 5 L Creatinine 0.7 Estimated GFR/1.73 m2 >= 60.00 Glucose 104 Calcium 8.8 Magnesium 2.0 Total Bilirubin 1.4 H Conjugated Bilirubin AST 195 H ALT 169 H Alkaline Phosphatase 356 H Troponin I < 0.05 Total Protein 8.2 Albumin 4.1 Lipase 159 Urine Color Urine Clarity Urine pH Ur Specific [place] Urine Protein Urine Ketones Urine Blood Urine Nitrite Urine Bilirubin Urine Urobilinogen Ur Leukocyte Esterase Urine Glucose COVID-19 Source 07/20/20 07/20/20 07/20/20 13:28 14:06 16:10 WBC 5.20 RBC 4.00 L Hgb 13.2 L Hct 38.1 L MCV 95.3 H MCH 33.0 MCHC 34.6 RDW 13.9 Plt Count 212 MPV 8.5 Immature Gran % 0.2 Neutrophils % 68.4 Lymphocytes % 21.2 Monocytes % 8.8 Eosinophils % 0.6 Basophils % 0.8 Nucleated RBC % 0 Absolute Neutrophils 3.56 Absolute Lymphocytes 1.10 L Absolute Monocytes 0.46 Absolute Eosinophils 0.03 Absolute Basophils 0.04 PT INR APTT VBG Lactate 1.6 H Sodium Potassium Chloride Carbon Dioxide Anion Gap BUN Creatinine Estimated GFR/1.73 m2 Glucose Calcium Magnesium Total Bilirubin Conjugated Bilirubin AST ALT Alkaline Phosphatase Troponin I Total Protein Albumin Lipase Urine Color Yellow Urine Clarity Clear Urine pH 8.0 Ur Specific [place] 1.020 Urine Protein Negative Urine Ketones Negative Urine Blood Negative Urine Nitrite Negative Urine Bilirubin Negative Urine Urobilinogen 0.2 Ur Leukocyte Esterase Negative Urine Glucose Negative COVID-19 Source 07/20/20 07/20/20 07/20/20 17:00 17:00 18:03 WBC RBC Hgb Hct MCV MCH MCHC RDW Plt Count MPV Immature Gran % Neutrophils % Lymphocytes % Monocytes % Eosinophils % Basophils % Nucleated RBC % Absolute Neutrophils Absolute Lymphocytes Absolute Monocytes Absolute Eosinophils Absolute Basophils PT Cancelled INR Cancelled APTT Cancelled VBG Lactate Sodium Potassium Chloride Carbon Dioxide Anion Gap BUN Creatinine Estimated GFR/1.73 m2 Glucose Calcium Magnesium Total Bilirubin Conjugated Bilirubin 0.4 H AST ALT Alkaline Phosphatase Troponin I < 0.05 Total Protein Albumin Lipase Urine Color Urine Clarity Urine pH Ur Specific [place] Urine Protein Urine Ketones Urine Blood Urine Nitrite Urine Bilirubin Urine Urobilinogen Ur Leukocyte Esterase Urine Glucose COVID-19 Source 07/20/20 19:27 WBC RBC Hgb Hct MCV MCH MCHC RDW Plt Count MPV Immature Gran % Neutrophils % Lymphocytes % Monocytes % Eosinophils % Basophils % Nucleated RBC % Absolute Neutrophils Absolute Lymphocytes Absolute Monocytes Absolute Eosinophils Absolute Basophils PT INR APTT VBG Lactate Sodium Potassium Chloride Carbon Dioxide Anion Gap BUN Creatinine Estimated GFR/1.73 m2 Glucose Calcium Magnesium Total Bilirubin Conjugated Bilirubin AST ALT Alkaline Phosphatase Troponin I Total Protein Albumin Lipase Urine Color Urine Clarity Urine pH Ur Specific [place] Urine Protein Urine Ketones Urine Blood Urine Nitrite Urine Bilirubin Urine Urobilinogen Ur Leukocyte Esterase Urine Glucose COVID-19 Source Nasopharyx Last Vital Signs Temp 37.0 C 07/20/20 13:19 Pulse 101 H 07/20/20 19:33 Resp 20 07/20/20 19:50 BP 170/101 H 07/20/20 19:33 Pulse Ox 98 07/20/20 19:30 COVID-19 Screening Have you, or household traveled for leisure in last 14 days?: No Had IN PERSON contact w/suspected or confirmed C-19 person: No
[2020-07-20] MEDS: LORazepam 2 MG/ML VIAL (20:29)
[2020-07-20] MEDS: PHENobarbital 130 MG/ML VIAL IVP (20:56)
--- NOTE | 2020-07-20 21:07 | NUR.NOTE ---
Phenobarb dose verified by Dr Holcomb.
[2020-07-20 23:37] LABS: COVID-19 PCR Negative (Negative)
[2020-07-20] MEDS: THIAMINE 100 MG in Normal Saline 100 ML 200 MG IVPB (23:45)
[2020-07-20] MEDS: Heparin 5,000 UNITS/ML VIAL 5000 UNITS SC (23:47)
[2020-07-20] MEDS: Normal Saline Flush 10 ML SYR IVP (23:47)
[2020-07-20] MEDS: Pantoprazole 40 MG VIAL IVP (23:48)
[2020-07-21] VITALS (28 sets, daily range): BP systolic 142–167; BP diastolic 91–109; PULSE 62–132; RESP 14–23; TEMP 36.1–37; O2SAT 94–99
[2020-07-21] MEDS: Normal Saline 100 ML 200 ML (00:15)
[2020-07-21] MEDS: MULTIVITAMIN 10 ML, THIAMINE 100 MG, FOLIC ACID 1 MG in DEXTROSE 5%-0.45% SALINE 1,000 ML 125 ML IV ×2 (00:49→12:03)
[2020-07-21] MEDS: Thiamine 200 MG/2 ML VIAL (02:38)
[2020-07-21] MEDS: Heparin 5,000 UNITS/ML VIAL 5000 UNITS SC ×3 (05:57→21:42)
[2020-07-21 06:37] LABS: Abs Immature Grans 0.01 10^3/uL (0.0-0.06); Absolute Basophil Count 0.02 10^3/uL (0.0-0.2); Absolute Eosinophil Count 0.12 10^3/uL (0.0-0.7); Absolute Lymphocyte Count 1.32 10^3/uL (1.2-3.4); Absolute Monocyte Count 0.36 10^3/uL (0.1-0.8); Absolute Neutrophil Count 2.05 10^3/uL (1.2-6.7); Basophils % 0.5; Eosinophils % 3.1; HCT 37.4 % (40.0-50.0); HGB 12.7 g/dL (13.5-17.5); Immature Grans % 0.3; MCH 32.6 pg (27.0-33.0); MCV 96.1 fL (80-95); MPV 8.7 fL (8.0-11.0); Monocytes % 9.3; Neutrophils % 52.8; Nucleated RBC 0 %; Platelet Count 165 10^3/uL (130-400); RBC 3.89 10^6/uL (4.36-5.78); RDW 13.6 % (11.8-14.1); RDW-SD 47.9 fL; WBC 3.88 10^3/uL (4.4-10.8)
[2020-07-21 06:46] LABS: Ammonia 36 umol/L (11-32)
[2020-07-21 06:54] LABS: ALT 128 U/L (16-63); AST 134 U/L (15-37); Albumin 3.2 g/dL (3.4-5.0); Alkaline Phosphatase 300 U/L (46-116); Anion Gap 8.2 mmol/L (3-11); BUN 4 mg/dL (7-18); Bilirubin, Direct 0.5 mg/dL (0.0-0.2); Bilirubin, Total 2.9 mg/dL (0.2-1.0); CO2 25.8 mmol/L (21.0-32.0); CREATININE 0.7 mg/dL (0.70-1.30); Calcium 8.3 mg/dL (8.5-10.1); Chloride 103 mmol/L (98-107); Glucose 97 mg/dL (74-106); Magnesium 1.9 mg/dL (1.8-2.4); Potassium 3.3 mmol/L (3.5-5.1); Sodium 137 mmol/L (136-145); Total Protein 6.7 g/dL (6.4-8.2)
[2020-07-21] MEDS: Senna TAB 1 TAB PO ×2 (08:07→21:42)
[2020-07-21] MEDS: FLUoxetine 20 MG CAP 60 MG PO (08:07)
[2020-07-21] MEDS: Docusate Sodium 100 MG CAP PO ×2 (08:07→21:42)
[2020-07-21] MEDS: PHENobarbital 130 MG/ML VIAL IVP ×2 (08:07→18:10)
--- NOTE | 2020-07-21 10:13 | PDOC.CMIN ---
- If Service Date Differs Date of service: 07/21/20 Time of Service: 16:18 Care Management Initial Assess REASON FOR HOSPITALIZATION:: Alcoholic hepatitis, alcohol withdrawal PAST MEDICAL HISTORY/PAST SURGICAL HISTORY:: Alcohol use disorder, alcohol withdrawal delirium, choledocholithiasis, colitis, common bile duct dilation, constipation, peptic ulcer disease, perforated ulcer, superficial thrombophlebitis, lumbar discectomy, EGD, appendectomy PREVIOUS FUNCTIONAL STATUS/SOCIAL/FAMILY SUPPORTS:: sue lives in [facility] with his step father. 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 Arron has one sister and one step brother. He is independent at baseline and does not receive any community services other that through [facility]. CURRENT FUNCTIONAL STATUS:: Remains in ICU on CIWA protocol at this time. Arron was sitting up in bed but not engageable. He continues to require medications for withdrawal at this time; CM continues to follow. ADVANCE DIRECTIVES:: None on file at [facility]. Has patient been provided with info about the portal/API?: Yes Did the patient sign up for the portal?: No CODE STATUS:: Full Code INSURANCE COVERAGE / FINANCIAL ISSUES:: Medicaid CURRENT HOME/COMMUNITY SERVICES/EQUIPMENT:: [facility] PRIMARY CARE PHYSICIAN:: Glendy Cohen POTENTIAL DISCHARGE NEEDS:: Sobriety support discussion, follow up appointments. PATIENT/FAMILY EDUCATION NEEDS:: Review of discharge instructions, discuss [employer] Me [employer]. ANTICIPATED BARRIERS TO DISCHARGE:: None identified at this time. TRANSPORTATION:: Via private vehicle with family. PLAN:: Arron will likely discharge home but disposition is unclear at this time. CM will continue to support Arron and his discharge planning needs.
--- NOTE | 2020-07-21 10:27 | W.PM.PROGNOT ---
Date of Service Date of service: 07/21/20 Time of Service: 10:27 Assessment and Plan Assessment and plan (1) Common bile duct dilatation: Status: Chronic Assessment and plan: Subacute issue. During last admission, GI at [facility] consulted; monitored and LFT's and bilirubin improved. No increased dilitation noted. MRCP ordered. (2) Abnormal LFTs: Status: Acute Assessment and plan: Likely alcoholic hepatitis but cannot r/o mass or choledocolithiasis given ongoing CBD dilitation. Avoidance of Etoh. Monitor LFT's. (3) Superficial thrombophlebitis: Status: Acute Assessment and plan: L mid greater saphenous vein thrombosis identified on last admission. Repeat LLE US pending. DVT prophylaxis with SQ heparin. (4) Alcohol withdrawal delirium: Status: Acute Assessment and plan: Now on phenobarbital protocol; prn. CIWA protocol monitoring Lactulose 20mg po now for mildly elevated ammonia; monitor. Thiamine, Folate and MVI supplementation. Subjective Subjective Patient reports: afebrile; denies shortness of breath Interval history since last seen: Pt is asleep; wakens when pressure applied to RUQ. Drank very little of his clear liquid breakfast. Doesn't verbalize when asked questions; falls asleep readily. Exam Const General: no acute distress Nutritional Appearance: average body habitus Orientation: not awake (wakens to physical stimuli, not verbal.) Limitations: altered mental status Eyes Sclera: sclerae normal Pupils: other (pupils equal) Resp Effort & Inspection: normal respiratory effort Auscultation: clear to auscultation bilaterally Cardio Rate: regular rate Rhythm: regular rhythm Heart Sounds: S1 normal and S2 normal GI Palpation: soft and tender in the RUQ; with no rebound tenderness Neuro General: not alert, moves all extremities and no focal motor deficits Cognition: abnormal cognition Extrem General: no pedal edema and no calf tenderness Objective Last Vital Signs Temp 36.3 C L 07/21/20 03:00 Pulse 90 07/21/20 06:00 Resp 20 07/21/20 06:00 BP 153/109 H 07/21/20 06:00 Pulse Ox 97 07/21/20 06:00 Laboratory Results - last 24 hr 07/20/20 07/20/20 07/20/20 13:23 13:24 13:28 WBC RBC Hgb Hct MCV MCH MCHC RDW Plt Count MPV Immature Gran % Neutrophils % Lymphocytes % Monocytes % Eosinophils % Basophils % Nucleated RBC % Absolute Neutrophils Absolute Lymphocytes Absolute Monocytes Absolute Eosinophils Absolute Basophils PT 10.9 INR 1.1 APTT 23.9 VBG Lactate Sodium 138 Potassium 3.9 Chloride 101 Carbon Dioxide 26.0 Anion Gap 11.0 BUN 5 L Creatinine 0.7 Estimated GFR/1.73 m2 >= 60.00 Glucose 104 Calcium 8.8 Magnesium 2.0 Total Bilirubin 1.4 H Conjugated Bilirubin AST 195 H ALT 169 H Alkaline Phosphatase 356 H Ammonia Troponin I < 0.05 Total Protein 8.2 Albumin 4.1 Lipase 159 Urine Color Urine Clarity Urine pH Ur Specific [place] Urine Protein Urine Ketones Urine Blood Urine Nitrite Urine Bilirubin Urine Urobilinogen Ur Leukocyte Esterase Urine Glucose COVID-19 Source SARS-CoV-2 (PCR) 07/20/20 07/20/20 07/20/20 13:28 14:06 16:10 WBC 5.20 RBC 4.00 L Hgb 13.2 L Hct 38.1 L MCV 95.3 H MCH 33.0 MCHC 34.6 RDW 13.9 Plt Count 212 MPV 8.5 Immature Gran % 0.2 Neutrophils % 68.4 Lymphocytes % 21.2 Monocytes % 8.8 Eosinophils % 0.6 Basophils % 0.8 Nucleated RBC % 0 Absolute Neutrophils 3.56 Absolute Lymphocytes 1.10 L Absolute Monocytes 0.46 Absolute Eosinophils 0.03 Absolute Basophils 0.04 PT INR APTT VBG Lactate 1.6 H Sodium Potassium Chloride Carbon Dioxide Anion Gap BUN Creatinine Estimated GFR/1.73 m2 Glucose Calcium Magnesium Total Bilirubin Conjugated Bilirubin AST ALT Alkaline Phosphatase Ammonia Troponin I Total Protein Albumin Lipase Urine Color Yellow Urine Clarity Clear Urine pH 8.0 Ur Specific [place] 1.020 Urine Protein Negative Urine Ketones Negative Urine Blood Negative Urine Nitrite Negative Urine Bilirubin Negative Urine Urobilinogen 0.2 Ur Leukocyte Esterase Negative Urine Glucose Negative COVID-19 Source SARS-CoV-2 (PCR) 07/20/20 07/20/20 07/20/20 17:00 17:00 18:03 WBC RBC Hgb Hct MCV MCH MCHC RDW Plt Count MPV Immature Gran % Neutrophils % Lymphocytes % Monocytes % Eosinophils % Basophils % Nucleated RBC % Absolute Neutrophils Absolute Lymphocytes Absolute Monocytes Absolute Eosinophils Absolute Basophils PT Cancelled INR Cancelled APTT Cancelled VBG Lactate Sodium Potassium Chloride Carbon Dioxide Anion Gap BUN Creatinine Estimated GFR/1.73 m2 Glucose Calcium Magnesium Total Bilirubin Conjugated Bilirubin 0.4 H AST ALT Alkaline Phosphatase Ammonia Troponin I < 0.05 Total Protein Albumin Lipase Urine Color Urine Clarity Urine pH Ur Specific [place] Urine Protein Urine Ketones Urine Blood Urine Nitrite Urine Bilirubin Urine Urobilinogen Ur Leukocyte Esterase Urine Glucose COVID-19 Source SARS-CoV-2 (PCR) 07/20/20 07/21/20 07/21/20 19:27 06:25 06:25 WBC RBC Hgb Hct MCV MCH MCHC RDW Plt Count MPV Immature Gran % Neutrophils % Lymphocytes % Monocytes % Eosinophils % Basophils % Nucleated RBC % Absolute Neutrophils Absolute Lymphocytes Absolute Monocytes Absolute Eosinophils Absolute Basophils PT INR APTT VBG Lactate Sodium 137 Potassium 3.3 L Chloride 103 Carbon Dioxide 25.8 Anion Gap 8.2 BUN 4 L Creatinine 0.7 Estimated GFR/1.73 m2 >= 60.00 Glucose 97 Calcium 8.3 L Magnesium 1.9 Total Bilirubin 2.9 H Conjugated Bilirubin 0.5 H AST 134 H ALT 128 H Alkaline Phosphatase 300 H Ammonia 36 H Troponin I Total Protein 6.7 Albumin 3.2 L Lipase Urine Color Urine Clarity Urine pH Ur Specific [place] Urine Protein Urine Ketones Urine Blood Urine Nitrite Urine Bilirubin Urine Urobilinogen Ur Leukocyte Esterase Urine Glucose COVID-19 Source Nasopharyx SARS-CoV-2 (PCR) Negative 07/21/20 06:25 WBC 3.88 L RBC 3.89 L Hgb 12.7 L Hct 37.4 L MCV 96.1 H MCH 32.6 MCHC 34.0 RDW 13.6 Plt Count 165 MPV 8.7 Immature Gran % 0.3 Neutrophils % 52.8 Lymphocytes % 34.0 Monocytes % 9.3 Eosinophils % 3.1 Basophils % 0.5 Nucleated RBC % 0 Absolute Neutrophils 2.05 Absolute Lymphocytes 1.32 Absolute Monocytes 0.36 Absolute Eosinophils 0.12 Absolute Basophils 0.02 PT INR APTT VBG Lactate Sodium Potassium Chloride Carbon Dioxide Anion Gap BUN Creatinine Estimated GFR/1.73 m2 Glucose Calcium Magnesium Total Bilirubin Conjugated Bilirubin AST ALT Alkaline Phosphatase Ammonia Troponin I Total Protein Albumin Lipase Urine Color Urine Clarity Urine pH Ur Specific [place] Urine Protein Urine Ketones Urine Blood Urine Nitrite Urine Bilirubin Urine Urobilinogen Ur Leukocyte Esterase Urine Glucose COVID-19 Source SARS-CoV-2 (PCR)
[2020-07-21] MEDS: Naproxen 500 MG TAB PO (14:42)
[2020-07-21] MEDS: Lactulose 20 GM/30 ML CUP PO (14:42)
[2020-07-21] MEDS: Cyclobenzaprine 10 MG TAB PO (18:09)
[2020-07-21] MEDS: Normal Saline Flush 10 ML SYR IVP (18:10)
[2020-07-21] MEDS: Amitriptyline 25 MG TAB PO (21:41)
[2020-07-21] MEDS: Pantoprazole 40 MG VIAL IVP (21:42)
[2020-07-22] VITALS (11 sets, daily range): BP systolic 121–146; BP diastolic 78–94; PULSE 66–86; RESP 13–19; TEMP 35.9–37.1; O2SAT 96
[2020-07-22] MEDS: PHENobarbital 130 MG/ML VIAL IVP (06:11)
[2020-07-22] MEDS: Heparin 5,000 UNITS/ML VIAL 5000 UNITS SC ×3 (06:12→21:17)
[2020-07-22 06:15] LABS: Abs Immature Grans 0.01 10^3/uL (0.0-0.06); Absolute Basophil Count 0.02 10^3/uL (0.0-0.2); Absolute Eosinophil Count 0.14 10^3/uL (0.0-0.7); Absolute Lymphocyte Count 1.31 10^3/uL (1.2-3.4); Absolute Monocyte Count 0.24 10^3/uL (0.1-0.8); Absolute Neutrophil Count 2.83 10^3/uL (1.2-6.7); Basophils % 0.4; Eosinophils % 3.1; HCT 37.4 % (40.0-50.0); HGB 12.7 g/dL (13.5-17.5); Immature Grans % 0.2; Lymphocytes % 28.8; MCH 32.8 pg (27.0-33.0); MCV 96.6 fL (80-95); MPV 9.2 fL (8.0-11.0); Monocytes % 5.3; Neutrophils % 62.2; Nucleated RBC 0 %; Platelet Count 169 10^3/uL (130-400); RBC 3.87 10^6/uL (4.36-5.78); RDW 13.2 % (11.8-14.1); RDW-SD 46.7 fL; WBC 4.55 10^3/uL (4.4-10.8)
[2020-07-22 06:22] LABS: Ammonia 33 umol/L (11-32)
[2020-07-22 06:29] LABS: ALT 97 U/L (16-63); AST 74 U/L (15-37); Albumin 3.2 g/dL (3.4-5.0); Alkaline Phosphatase 261 U/L (46-116); Anion Gap 8.9 mmol/L (3-11); BUN 7 mg/dL (7-18); Bilirubin, Total 0.8 mg/dL (0.2-1.0); CO2 26.1 mmol/L (21.0-32.0); CREATININE 0.7 mg/dL (0.70-1.30); Calcium 8.5 mg/dL (8.5-10.1); Chloride 103 mmol/L (98-107); Glucose 114 mg/dL (74-106); Potassium 3.3 mmol/L (3.5-5.1); Sodium 138 mmol/L (136-145); Total Protein 6.4 g/dL (6.4-8.2)
[2020-07-22] MEDS: Normal Saline Flush 10 ML SYR IVP ×2 (08:23→20:30)
[2020-07-22] MEDS: FLUoxetine 20 MG CAP 60 MG PO (08:24)
[2020-07-22] MEDS: Senna TAB 1 TAB PO ×2 (08:24→20:30)
[2020-07-22] MEDS: Docusate Sodium 100 MG CAP PO ×2 (08:24→20:30)
[2020-07-22] MEDS: Mylanta Suspension 30 ML CUP PO ×2 (09:36→22:23)
[2020-07-22] MEDS: Thiamine 100 MG TAB PO (12:51)
[2020-07-22] MEDS: Folic Acid 1 MG TAB PO (12:51)
[2020-07-22] MEDS: Multivitamin TAB 1 TAB PO (12:51)
--- NOTE | 2020-07-22 13:37 | W.PM.PROGNOT ---
Date of Service Date of service: 07/22/20 Time of Service: 09:40 Assessment and Plan Assessment and plan (1) Alcohol withdrawal delirium: Status: Acute Assessment and plan: On CIWA protocol with prn phenobarbital. Stable with last score of 10 earlier in the AM. When he is more alert and cognitively clear will discuss options of treatment for Etoh abuse syndrome. (2) Superficial thrombophlebitis: Status: Acute Assessment and plan: L mid greater saphenous vein thrombosis identified on last admission. Repeat LLE US pending. (3) Common bile duct dilatation: Status: Chronic Assessment and plan: Stable. MRCP scheduled for tomorrow. Bili and LFTs improving. (4) Abnormal LFTs: Status: Acute Assessment and plan: Alcoholic hepatitis. Improving. Etoh abstinence Subjective Subjective Patient reports: pain is less (abdominal) and afebrile; denies nausea, vomiting and shortness of breath Interval history since last seen: He has eaten solid foods w/o emesis. Exam Const General: cooperative and no acute distress Nutritional Appearance: average body habitus Orientation: alert, oriented to person and oriented to place Eyes Sclera: sclerae normal Pupils: PERRL Resp Effort & Inspection: normal respiratory effort Auscultation: clear to auscultation bilaterally Cardio Rate: regular rate Rhythm: regular rhythm Heart Sounds: S1 normal and S2 normal GI Palpation: soft and tender (mild LUQ tenderness w/o guarding/rebound) Neuro General: moves all extremities Speech: speech normal Extrem General: no pedal edema and no calf tenderness Psych Appearance: grossly normal Speech and Movement: speech and movement normal Mood: congruent mood Affect: blunted Objective Last Vital Signs Temp 36.7 C 07/22/20 09:00 Pulse 81 07/22/20 08:00 Resp 19 07/22/20 08:00 BP 121/79 07/22/20 08:00 Pulse Ox 95 07/21/20 21:00 Laboratory Results - last 24 hr 07/22/20 07/22/20 07/22/20 05:48 05:48 05:48 WBC 4.55 RBC 3.87 L Hgb 12.7 L Hct 37.4 L MCV 96.6 H MCH 32.8 MCHC 34.0 RDW 13.2 Plt Count 169 MPV 9.2 Immature Gran % 0.2 Neutrophils % 62.2 Lymphocytes % 28.8 Monocytes % 5.3 Eosinophils % 3.1 Basophils % 0.4 Nucleated RBC % 0 Absolute Neutrophils 2.83 Absolute Lymphocytes 1.31 Absolute Monocytes 0.24 Absolute Eosinophils 0.14 Absolute Basophils 0.02 Sodium 138 Potassium 3.3 L Chloride 103 Carbon Dioxide 26.1 Anion Gap 8.9 BUN 7 Creatinine 0.7 Estimated GFR/1.73 m2 >= 60.00 Glucose 114 H Calcium 8.5 Total Bilirubin 0.8 AST 74 H ALT 97 H Alkaline Phosphatase 261 H Ammonia 33 H Total Protein 6.4 Albumin 3.2 L
--- NOTE | 2020-07-22 16:12 | CMPROGNOTE_ITS ---
Care Management Progress Note S/O: Arron remains in acute withdrawal, CM to review supports for sobriety when Arron is able to fully engage. CM continues to follow. A: 40 year old male admitted to [facility] 07/20/20 for alcoholic hepatitis, alcoholic withdrawal P: Arron will likely discharge home but disposition remains unclear at this time. His father has called the ICU demanding involuntary placement; education provided central to patient self-determination. Jose Enrique will be provided options for sobriety across the continuum; inpatient to outpatient once more alert and engaged. CM will continue to support Arron and his discharge planning needs.
--- NOTE | 2020-07-22 17:25 | NUR.NOTE ---
Nursing Note: Other RN placed call on hold to check if pt was awake take the call. RN's other pt called out in need. RN asked this rn to get the person waiting sent into room if pt was awake to take call. This rn check and found pt asleep. After lifting handset and stating that pt was asleep at this time, rn asked if message could be taken and given to pt when he woke. Male person on the phone states I want to know whats is wrong with him. Is it his liver? RN explained that if he wanted to call back later they could talked when pt was awake or name/number could be taken for pt to call him. Male on phone states, He wont tell me the truth! You tell me whats going on Rn explained that Staff can share information that the pt doesn't want shared and that he should talk to pt when pt awake. Man yells, then give me the doctor he will tell me RN explained that MD is not available and that if pt doesn't want info shared, MD is unable to share either. Pt well Ill call again later and talk to someone else. You're no help! You people have messed up so many times. You keep letting him go and you dont' sent him to rehab. Tell him there is a waiting list or that no one will take him and you have to send him to rehab you can not let him leave this time. You have to make him go to rehab! Rn states Im sorry, we cant make him got to rehab, as a competent adult... Male on phone cut rn off screamed, ADULT?! laughter from man on phone. man continues, I dont think so! Now you listen to me! RN cut male off and asked, sir, listen to me..... at which point man on phone hung up Entry Level Sales Consultant notified that male on phone is yelling and angry
[2020-07-22] MEDS: Pantoprazole 40 MG VIAL IVP (20:30)
[2020-07-22] MEDS: Cyclobenzaprine 10 MG TAB PO (20:30)
[2020-07-22] MEDS: Amitriptyline 25 MG TAB PO (21:17)
[2020-07-23] VITALS (44 sets, daily range): BP systolic 67–130; BP diastolic 44–106; PULSE 59–98; RESP 11–21; TEMP 35.9–36.6; O2SAT 96–97
[2020-07-23] MEDS: Heparin 5,000 UNITS/ML VIAL 5000 UNITS SC (05:17)
[2020-07-23 07:00] LABS: ALT 75 U/L (16-63); AST 50 U/L (15-37); Albumin 2.8 g/dL (3.4-5.0); Alkaline Phosphatase 210 U/L (46-116); Anion Gap 8.9 mmol/L (3-11); BUN 12 mg/dL (7-18); Bilirubin, Total 0.4 mg/dL (0.2-1.0); CO2 26.1 mmol/L (21.0-32.0); CREATININE 0.7 mg/dL (0.70-1.30); Calcium 8.6 mg/dL (8.5-10.1); Chloride 103 mmol/L (98-107); Glucose 99 mg/dL (74-106); Potassium 3.9 mmol/L (3.5-5.1); Sodium 138 mmol/L (136-145); Total Protein 6.2 g/dL (6.4-8.2)
--- NOTE | 2020-07-23 08:00 | DI.US_ITS ---
EXAM: US LOWER EXTREMITY VENOUS LT CLINICAL HISTORY: follow up superficial thrombophlebitis TECHNIQUE: Grayscale, color, and doppler imaging of the deep venous system of the lower extremity w as performed. COMPARISON: Prior ultrasound 06/13/2019 FINDINGS: On the present study the greater saphenous vein is now patent. However, this study is now positive for DVT with intraluminal thrombus now evident in the mid and dis monroe femoral vein as well as within the deep femoral-profundal vein. Normal compression and augmentation were demonstrated in the popliteal vein and posterior tibial vein s in the calf IMPRESSION: 1. Positive study for DVT in the left lower extremity as described above. 2. Previously present superficial phlebitis in the ipsilateral greater saphenous vein no longer seen DATA REPOSITORY:
[2020-07-23] MEDS: Multivitamin TAB 1 TAB PO (08:41)
[2020-07-23] MEDS: Folic Acid 1 MG TAB PO (08:41)
[2020-07-23] MEDS: FLUoxetine 20 MG CAP 60 MG PO (08:41)
[2020-07-23] MEDS: Thiamine 100 MG TAB PO (08:41)
[2020-07-23] MEDS: Docusate Sodium 100 MG CAP PO ×2 (08:42→20:54)
--- NOTE | 2020-07-23 09:55 | CMPROGNOTE_ITS ---
- If Service Date Differs Date of service: 07/23/20 Time of Service: 09:56 Care Management Progress Note S/O: Arron was lying in bed when CM met with him. He stated that he is still having pain but is feeling somewhat better. Arron was connected with a Business Administration Teacher on his last admission but admitted that he has not been in contact with her since discharge. Arron informed CM that he hopes to have his physician order Antabuse for him to help him to avoid drinking alcohol. When offered inpatient treatment by the provider, Arron declined. A: 40 year old male admitted to [facility] 07/20/20 for alcoholic hepatitis, alcoholic withdrawal P: Arron will likely discharge home but disposition remains unclear at this time. Jose Enrique will be provided options for sobriety across the continuum; inpatient to outpatient once more alert and engaged. CM will continue to support Arron and his discharge planning needs.
--- NOTE | 2020-07-23 10:47 | W.NUTRFU ---
Date of service: 07/23/20 Time of Service: 10:48 Nutritional Follow up NOTE: 40 year old male admitted to ICU with alcoholic hepatitis and ETOH withdrawl. Supplemented with MVI, thiamine and folic acid for repletion. Diet advanced to regular and tolerating. BMI wnl and stable. Not considered at nutritional risk. Will continue to follow. Time Spent in Nutritional Counseling and Treatment: 0
[2020-07-23 11:36] LABS: Hepatitis A Antibody IgM Negative (Negative); Hepatitis B Core Antibody Negative (Negative); Hepatitis B surface Ag Negative (Negative); Hepatitis C Ab w Rflx HCV PCR Negative (Negative)
--- NOTE | 2020-07-23 12:30 | DI.MRI_ITS ---
EXAM: MR ABDOMEN WO CLINICAL HISTORY: Dilated CBD, abdominal pain TECHNIQUE: Multiplanar multisequence MRI was performed with both pre and post contrast infused seque nces. MRCP was also performed. COMPARISON: CT CT ABDOMEN PELVIS W from 06/12/[address] ABDOMEN PELVIS W from 06/12/2020 FINDINGS: VISUALIZED LUNG BASES: No pleural effusions evident. There is no ascites evident. LIVER: There is signal dropout in the liver on out of phase imaging consistent with hepatic steatosis , as evident on the recent CT scan. There are no discrete focal hepatic lesions evident. Liver size is upper normal. BILIARY/MRCP: There is no obvious gallbladder pathology. Cystic duct diameter is upper normal. CBD diameter is 9 millimeters and slightly less in the pancreatic head. There is a single small signal f ocus in the lower CBD just above the gallbladder as seen on T2 weighted images which possibly represe nts a small gallstone at this level. The heavily T2 weighted MRCP images do not reveal an obvious intraluminal mass within the CBD PANCREAS: There is no evidence of pancreatic mass nor dilatation of the pancreatic duct. SPLEEN: Spleen is not enlarged and there are no intrasplenic lesions. ADRENALS: There are no significant adrenal masses. KIDNEYS: No solid renal masses. No hydronephrosis.No cysts evident. ABDOMINAL AORTA: Not enlarged and there is no significant para-aortic adenopathy. ANTERIOR ABDOMINAL WALL/GI: There is no evidence of significant anterior abdominal wall hernia in the field of view of this study.Is no evidence of obvious bowel obstruction. OSSEOUS: There are no lytic osseous lesions in the field of view of this study. IMPRESSION: 1. There is mild dilatation of the CBD and minimal prominence of intrahepatic ducts, without signific ant gallbladder distension. CBD diameter is 9 mm. There is no evidence of mass in the pancreatic he ad but there is subtle suggestion of a possible small calculus in the lower CBD, this best seen on th e axial T2 weighted images (image 10). 2. Hepatic steatosis. No discrete focal hepatic lesions. No ascites. 3. No significant focal pancreatic findings nor significant dilatation of the pancreatic duct. DATA REPOSITORY:
--- NOTE | 2020-07-23 14:58 | W.PM.PROGNOT ---
Date of Service Date of service: 07/23/20 Time of Service: 14:59 Assessment and Plan Assessment and plan (1) Deep venous thrombosis: Status: Chronic Assessment and plan: Previous LLE superficial thrombophlebitis has resolved and now has a DVT in the deep and superficial femoral veins. Initiate Apixiban 10mg po BID; for 14 days rather than 7 days given he has phenobarbital in his system which may lower the activity of the Apixiban. Discussed Lovenox with patient but concerns about compliance made this option very undesirable. (2) Toothache: Status: Acute Assessment and plan: PRN Benzocaine gel. (3) Common bile duct dilatation: Status: Chronic Assessment and plan: Subacute/persistant. MRCP today. Pain in abd improved but still present. Total bili normalized. LFT's improved. May be seen in alcoholic hepatitis which he has had recurrently. (4) Alcohol withdrawal delirium: Status: Acute Assessment and plan: No phenobarbital needed for CIWA scoring since yesterday at 6 AM; appears withdrawal completed. Cont po thiamine, folate and MVI. (5) Discharge planning issues: Status: Acute Assessment and plan: Discussed his plan for alcohol cessation. He states he has spoken with his PCP who will prescribe Antibuse if pt desires, which he does. He refused an inpt program. Subjective Subjective Patient reports: tolerating a regular diet and afebrile; denies nausea and vomiting Interval history since last seen: Feeling somewhat better but still has some RUQ and epigastric pain. c/o tootache and request a topical numbing medication given during last admission. Exam Const General: cooperative and no acute distress Nutritional Appearance: average body habitus Orientation: alert, oriented to person and oriented to place Resp Effort & Inspection: normal respiratory effort Auscultation: clear to auscultation bilaterally Cardio Rate: regular rate Rhythm: regular rhythm Heart Sounds: S1 normal and S2 normal GI Palpation: soft and tender in the epigastrum and in the RUQ Neuro General: patient awake and moves all extremities Speech: speech normal Extrem General: no calf tenderness Knee images: 1. thigh discomfort with palpation. No erythema or swelling. Psych Appearance: grossly normal Affect: blunted Objective Last Vital Signs Temp 36.5 C 07/23/20 13:43 Pulse 79 07/23/20 11:36 Resp 16 07/23/20 05:21 BP 112/71 07/23/20 11:44 Pulse Ox 96 07/23/20 05:21 Laboratory Results - last 24 hr 07/20/20 07/23/20 13:28 06:25 Sodium 138 Potassium 3.9 Chloride 103 Carbon Dioxide 26.1 Anion Gap 8.9 BUN 12 Creatinine 0.7 Estimated GFR/1.73 m2 >= 60.00 Glucose 99 Calcium 8.6 Total Bilirubin 0.4 AST 50 H ALT 75 H Alkaline Phosphatase 210 H Total Protein 6.2 L Albumin 2.8 L Hepatitis A IgM Ab Negative Hep Bs Antigen Negative Hep B Core Total Ab Negative Hepatitis C Antibody Negative
--- NOTE | 2020-07-23 15:05 | PHACLINREV_ITS ---
Pharmacy Admission Review - Admission Clinical Review (Last Reviewed 07/22/20 @ 16:48 by MAKENZIE Rothman) Abnormal LFTs (Acute) Superficial thrombophlebitis (Acute) Alcohol withdrawal delirium (Acute) Discharge planning issues (Acute) DVT prophylaxis (Acute) Abdominal pain (Acute) clindamycin Allergy (Intermediate, Unverified 07/20/20 13:28) Hives NSAIDS (Non-Steroidal Anti-Inflamma Adverse Reaction (Intermediate, Unverified 07/20/20 13:28) perforated ulcer Height 5 ft 7 in Weight 70 kg - Renal Dosing Renal Dosing: BUN 12 mg/dL (7-18) 07/23/20 06:25 Creatinine 0.7 mg/dL (0.70-1.30) 07/23/20 06:25 Medications needing adjustments: Reviewed (Crcl ~114 mL/min current meds okay.) - Anticoagulation Anticoagulation: Hgb 12.7 g/dL (13.5-17.5) L 07/22/20 05:48 Hct 37.4 % (40.0-50.0) L 07/22/20 05:48 Plt Count 169 10^3/uL (130-400) 07/22/20 05:48 INR Cancelled 07/20/20 18:03 Creatinine 0.7 mg/dL (0.70-1.30) 07/23/20 06:25 DVT Prohphylaxis: N/A Therapeutic Anticoagulation: Reviewed (Provider aware, see progress note.) - Opiate Usage Evaluate Pain Scale/Pains Meds: Reviewed Scheduled Bowel Reg ordered if on Opiates?: Yes - Relevant Labs Sodium 138 mmol/L (136-145) 07/23/20 06:25 Potassium 3.9 mmol/L (3.5-5.1) 07/23/20 06:25 Chloride 103 mmol/L (98-107) 07/23/20 06:25 Magnesium 1.9 mg/dL (1.8-2.4) 07/21/20 06:25 Electrolytes, C-Reactive P, ESR: Reviewed - DM Control DM Control: Glucose 99 mg/dL (74-106) 07/23/20 06:25 Insulin Dosing: N/A - Heart Failure/KY Heart Failure/KY: Troponin I < 0.05 ng/mL (<0.06) 07/20/20 17:00 EF%, JAY's, B-Blockers, Diuretics: Reviewed - BP Control BP Control: Blood Pressure 112/71 Blood Pressure 112/71 Blood Pressure 123/73 Blood Pressure 111/66 Blood Pressure 114/72 If elevated: N/A - Qtc Review If Elevated: Reviewed (QTc 520 on admission. Pt has methadone ordered, avoid additional QT prolonging meds.) - IV to PO Switch IV Medications: Reviewed - Home Meds Home Med List reviewed: Reviewed (Multiple GEOPHYSICAL PROSPECTING PERMIT AGENT depressants. Fluoxetine may enhance the serotonergic effect of amitriptyline increases the risk of adverse/toxic effects. Monitor for signs/symptoms of serotonin synd jennifer/serotonin toxicity.) Relevent Home Meds Not ordered & why?: acamprosate, terbinafine, valacyclovir - Current meds Current Medication Order Review: Intervened (Adjusted the timing of the pantoprazole so on even hour per medicaid business analyst time policy.) - Comments Comments/Follow Ups: Watch VS, labs, phenobarbital dosing and for med changes (start of anticoagulant, avoid QT prolonging meds).
[2020-07-23] MEDS: Benzocaine 20% Gel 30 GM JAR MM (16:33)
[2020-07-23] MEDS: Apixaban 5 MG TAB 10 MG PO (20:54)
[2020-07-23] MEDS: Senna TAB 1 TAB PO (20:54)
[2020-07-23] MEDS: Amitriptyline 25 MG TAB PO (20:54)
[2020-07-23] MEDS: Pantoprazole 40 MG VIAL IVP (20:54)
[2020-07-23] MEDS: Normal Saline Flush 10 ML SYR IVP (20:55)
[2020-07-24] VITALS (22 sets, daily range): BP systolic 108–125; BP diastolic 65–74; PULSE 48–84; RESP 10–18; TEMP 36.3–37.1; O2SAT 94–97
[2020-07-24] MEDS: FLUoxetine 20 MG CAP 60 MG PO (08:02)
[2020-07-24] MEDS: Apixaban 5 MG TAB 10 MG PO ×2 (08:02→21:27)
[2020-07-24] MEDS: Docusate Sodium 100 MG CAP PO ×2 (08:02→21:25)
[2020-07-24] MEDS: Multivitamin TAB 1 TAB PO (08:03)
[2020-07-24] MEDS: Thiamine 100 MG TAB PO (08:03)
[2020-07-24] MEDS: Senna TAB 1 TAB PO ×2 (08:03→21:27)
[2020-07-24] MEDS: Folic Acid 1 MG TAB PO (08:03)
--- NOTE | 2020-07-24 11:05 | NUR.NOTE ---
Dr. Loving identifies a stone in small bile duct. MD will attempt scheduling test at [facility] for ECRP. Patient will return to hopsital after conclusion of test.Nursing Note:
--- NOTE | 2020-07-24 13:04 | PGE_ITS ---
Date of Service Date of service: 07/24/20 Time of Service: 09:05 Assessment and Plan Assessment and plan (1) Toothache: Status: Acute Assessment and plan: Topical benzocaine prn (2) Deep venous thrombosis: Status: Chronic Assessment and plan: Initiated Eliquis 10mg po BID; planning to continue the 10mg dosage for 2 weeks rather than 1 week d/t phenobarbital in his system than can decreasse the effectiveness of Eliquis. (3) Common bile duct dilatation: Status: Chronic Assessment and plan: MRCP results: mild dilatation of the CBD and minimal prominence of intrhepatic ducts w/o significant gallbladder distension. CBD diamter is 9 mm. There is no evidence of mass in the pancreatic head but there is subtle suggestion of a possible small calculus in the lower CBD. Consultation with [facility]: pending. (4) Alcohol withdrawal delirium: Status: Acute Assessment and plan: He has completed alcohol withdrawal. Cont Thiamine, folate and MVI daily. His plan is to start Antibuse when discharged. Does not want inpatient substance abuse treatment. Subjective Subjective Patient reports: no new complaints, still having pain (across upper abd; now somewhat worse in the LUQ), tolerating a regular diet and afebrile; denies nausea, vomiting and shortness of breath Exam Const General: cooperative, no acute distress and lethargic Nutritional Appearance: average body habitus Orientation: oriented x3 Eyes Sclera: sclerae normal Pupils: PERRL Resp Effort & Inspection: normal respiratory effort Auscultation: clear to auscultation bilaterally Cardio Rate: regular rate Rhythm: regular rhythm Heart Sounds: S1 normal and S2 normal Skin General skin exam: no rashes or lesions noted Extrem General: no pedal edema and no calf tenderness Psych Speech and Movement: speech and movement normal Affect: blunted Objective Last Vital Signs Temp 36.5 C 07/24/20 10:12 Pulse 65 07/24/20 10:12 Resp 14 07/24/20 10:12 BP 108/65 07/24/20 10:12 Pulse Ox 97 07/24/20 10:12
[2020-07-24] MEDS: Normal Saline Flush 10 ML SYR IVP ×2 (14:52→21:26)
--- NOTE | 2020-07-24 21:13 | PDOC.CMPRO ---
- If Service Date Differs Date of service: 07/24/20 Time of Service: 21:13 Care Management Progress Note S/O: Arron was sitting up in bed when CM met with him. He appeared to be in good spirits and was more engaged than usual. He stated that he is feeling a little better and was waiting to go to [facility] for an ERCP. He shared that he hoped this would resolve the abdominal pain he has had for the past few weeks. He also confirmed his strong desire to stop drinking alcohol.. A Accounting Clerks Supervisor will likely contact him tomorrow. A: Arron is a 40 year old man admitted with abdominal pain and ETOH abuse P: Arron will be discharged home with no new services. He will follow up with his community providers and plan of care and transport with friends/relatives. CM will continue to support Arron and his discharge concerns.
[2020-07-24] MEDS: Pantoprazole 40 MG VIAL IVP (21:26)
[2020-07-24] MEDS: Amitriptyline 25 MG TAB PO (21:27)
[2020-07-25] VITALS (16 sets, daily range): BP systolic 111–150; BP diastolic 62–89; PULSE 50–83; RESP 11–17; TEMP 36.6–36.8; O2SAT 94–95
--- NOTE | 2020-07-25 08:34 | PDOC.CMPRO ---
- If Service Date Differs Date of service: 07/25/20 Time of Service: 08:34 Care Management Progress Note SO: Arron was sitting up in bed watching TV when CM met with him. He informed CM that his neck was sore, but otherwise he felt pretty good.Arron did not go to [facility] yesterday but is hoping to be able to go today for the ERCP. He again stated that he is hopeful it will help to reduce the abdominal pain he is experiencing. Arron remains in good spirits, even joking with CM a bit. A: Arron is a 40 year old man admitted with abdominal pain and ETOH abuse P: Arron will be discharged home with no new services. He will follow up with his community providers and plan of care and transport with friends/relatives. CM will continue to support Arron and his discharge concerns.
[2020-07-25] MEDS: Folic Acid 1 MG TAB PO (09:54)
[2020-07-25] MEDS: FLUoxetine 20 MG CAP 60 MG PO (09:54)
[2020-07-25] MEDS: Docusate Sodium 100 MG CAP PO (09:55)
[2020-07-25] MEDS: Senna TAB 1 TAB PO (09:55)
[2020-07-25] MEDS: Multivitamin TAB 1 TAB PO (09:55)
[2020-07-25] MEDS: Thiamine 100 MG TAB PO (09:55)
[2020-07-25] MEDS: Cyclobenzaprine 10 MG TAB PO (12:07)
[2020-07-25] MEDS: Lactated Ringers 1,000 ML 125 ML IV (13:11)
--- NOTE | 2020-07-25 15:35 | DSE_ITS ---
Date of service: 07/25/20 Time of Service: 15:36 DS: Diagnosis Discharge Diagnosis (1) Toothache: Status: Acute (2) Deep venous thrombosis: Status: Chronic (3) Common bile duct dilatation: Status: Chronic (4) Alcohol withdrawal delirium: Status: Acute Discharge Plan Disposition Patient Disposition: HOME Condition: Improving Discharge Details Reason For Visit: ALCOHOLIC HEPATITIS, ALCOHOL WITHDRAWAL Admit Date/Time: 07/20/20 18:00 Admit Provider: Kortney Lee Attending Provider: Kortney Lee Primary Care Provider: Glendy Cohen [facility] Course Hospital Course: Mr Mcbride is a 40 year old male with PMHx of alcoholic pancreatitis, chronically dialated CBD, peptic ulcer disease, alcohol abuse and withdrawal without history of alcohol withdrawal seizures, as well as h/o LLE superficial thrombophlebitis who presented to [facility] ED with c/o abdominal pain, nausea, and vomiting x 2.5 days. The patient stated that his symptoms prevented him from drinking alcohol, so his last drink was 2.5 days prior to admission. The abdominal pain was epigastric and in RUQ. Emesis has been billious, and he has not seen any brennan blood or coffee grounds. He denied diarrhea/constipation. He did report that his left thigh continues to feel painful. He started drinking again because he is said about the of his mother in March of 2020. 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 He endorsed that he had been taking his medications as prescribed. His ED workup reveals elevated LFTs including bilirubin, lipase of 159 (normal), and stable dilatation of CBD on ultrasound without evidence of choledo cholithiasis. His alcohol withdrawal has required administration of IV ativan as well as IV diazepam and the patient's last CIWA score is recorded to be 18 (it was up to 29). Hospitalists were asked to take over care. Mr Mcbride is getting admitted to the ICU. CIWA scoring with prn phenobarbital initiated. He had a fairly smooth withdrawal. His LFT's improved, bilirubin normalized. Because of his now subacute mildly dilated common bile duct, an MRCP was obtained. CBD measured at 9mm. [facility] consulted because of the finding a single small signal focus in the lower CBD just above the gallbladder as seen on T2 weighted images which possibly represents a small gallstone at this level. They did not believe an ERCP was indicated but will f/u with Jose Enrique as an outpt. He is agreeable to this plan Per patient he was planning on initiating antebuse with his PCP; will prescribe a 14 day course; 500mg daily. F/U with PCP in 1-2 weeks. Strongly encourage alcohol abstinence. Home Meds and New Rx's Prescriptions: New Eliquis 5 mg Tablet 10 mg PO BID Qty: 0 RF: 0 disulfiram 500 mg tablet 500 mg PO DAILY Qty: 14 RF: 0 Continued valacyclovir 500 MG tablet 1,000 mg PO QDAY RF: 0 alum-mag hydroxide-simeth [Maalox Advanced] 355 ML suspension 15 ml PO Q6H PRN PRNRF: 0 terbinafine HCl 15 GM cream 1 applic Topical BID Qty: 1 RF: 0 cyclobenzaprine 10 MG tablet 10 mg PO TID PRN PRNRF: 0 methadone 10 MG/ML concentrate 75 mg PO DAILY RF: 0 albuterol sulfate 8.5 GM HFA aerosol inhaler 8.5 gm Inhalation QID PRN (Reason: Cough) Qty: 1 RF: 0 fluoxetine 20 mg capsule 60 mg PO DAILY RF: 0 amitriptyline 25 mg Tablet 25 mg PO HS RF: 0 pantoprazole 40 mg Tablet,Delayed Release (Dr/Ec) 40 mg PO DAILY RF: 0 acamprosate 333 mg Tablet,Delayed Release (Dr/Ec) 666 mg PO TID RF: 0 Discharge Instructions Instructions: Abuse of Alcohol (DC) Referrals: [facility]STRO[facility]OLOGY,[facility] [place] - (Dilated common bile duct. Alcoholic hepatitis Pancreatitis history) Activity:: Activity as Tolerated Equipment/Supplies:: No Equipment Needed Diet:: As Tolerated DS: Summary Time Spent with Patient providing and/or coordinating discharge services: Greater than 30 minutes Status at Discharge Functional status at discharge: independent ambulation Overall status at discharge: patient is progressing back to baseline Mental Status: mental status grossly normal Speech and Movement: speech and movement normal Mood: congruent mood Affect: blunted Exam Const General: cooperative and no acute distress Eyes Sclera: sclerae normal Pupils: PERRL Resp Effort & Inspection: normal respiratory effort Auscultation: clear to auscultation bilaterally Cardio Rate: regular rate Rhythm: regular rhythm Heart Sounds: S1 normal and S2 normal GI Inspection: distended Palpation: soft and tender (upper abd) Skin General skin exam: no rashes or lesions noted Extrem General: no pedal edema and no calf tenderness Psych Appearance: grossly normal Mental Status: mental status grossly normal Speech and Movement: speech and movement normal Mood: congruent mood Affect: blunted DS: Data Vitals/I&O Vitals and I&O: Vital Signs Temperature 36.6 C 07/25/20 09:00 Temperature Source Temporal Artery Scan 07/25/20 09:00 Pulse 64 07/25/20 12:02 Pulse 65 07/25/20 12:02 Respiratory Rate 13 07/25/20 12:02 Respiratory Effort 07/25/20 12:00 Respiratory Depth Normal 07/25/20 12:00 Respiratory Pattern Normal 07/25/20 12:00 Blood Pressure 114/73 07/25/20 12:02 Blood Pressure Mean 83 07/25/20 12:02 Blood Pressure Position Sitting 07/25/20 09:00 Pulse Oximetry 94 07/25/20 03:36 Oxygen Delivery Method Room Air 07/25/20 12:00 Oxygen Flow Rate 0 07/25/20 12:00 Pain Level 6 07/25/20 12:08 Intake & Output 07/24/20 07/25/20 07/25/20 23:59 11:59 23:59 Intake Total 480 / 720 150 / 150 Output Total 750 / 1950 750 / 750 Balance -270 / -1230 -600 / -600 Intake: Oral 480 / 720 150 / 150 Output: Urine 750 / 1950 750 / 750 Other: Urine Color Yellow Yellow Urine Appearance Cloudy Clear Urine Odor Strong Comment voids to urinal or commode. voids to urinal or commode. voids to urinal or commode. Voiding Methods Urinal Urinal [facility] Medical History Alcohol abuse Alcohol withdrawal delirium Choledocholithiasis Colitis Common bile duct dilatation Constipation Peptic ulcer disease Perforated ulcer Superficial thrombophlebitis Surgical History H/O lumbar discectomy x2 History of esophagogastroduodenoscopy (EGD) S/P appendectomy Family History Mother Breast cancer Social History Smoking/Tobacco Use Status: Current every day Smoking risk assessment performed?: Yes Alcohol Intake: current Alcohol Intake frequency: 3 or more drinks per day Alcohol type: beer Drug use: Daily Substance use type: marijuana, heroin, painkillers and methamphetamine Current gender identity: male Do you feel safe at home: Yes Do you feel safe in your relationship?: Yes
--- NOTE | 2020-07-25 16:11 | DSE_ITS ---
DS: Diagnosis Discharge Diagnosis (1) Toothache: Status: Acute (2) Deep venous thrombosis: Status: Chronic (3) Common bile duct dilatation: Status: Chronic (4) Alcohol withdrawal delirium: Status: Acute Discharge Plan Disposition Patient Disposition: HOME Condition: Improving Discharge Details Reason For Visit: ALCOHOLIC HEPATITIS, ALCOHOL WITHDRAWAL Admit Date/Time: 07/20/20 18:00 Admit Provider: Kortney Lee Attending Provider: Kortney Lee Primary Care Provider: Glendy Cohen [facility] Course Hospital Course: Mr Mcbride is a 40 year old male with PMHx of alcoholic pancreatitis, chronically dialated CBD, peptic ulcer disease, alcohol abuse and withdrawal without history of alcohol withdrawal seizures, as well as h/o LLE superficial thrombophlebitis who presented to [facility] ED with c/o abdominal pain, nausea, and vomiting x 2.5 days. The patient stated that his symptoms prevented him from drinking alcohol, so his last drink was 2.5 days prior to admission. The abdominal pain was epigastric and in RUQ. Emesis has been billious, and he has not seen any brennan blood or coffee grounds. He denied diarrhea/constipation. He did report that his left thigh continues to feel painful. He started drinking again because he is said about the of his mother in March of 2020. He had not been in touch with his recovery auditor. He endorsed that he had been taking his medications as prescribed. His ED workup reveals elevated LFTs including bilirubin, lipase of 159 (normal), and stable dilatation of CBD on ultrasound without evidence of choledocholithiasis. His alcohol withdrawal has required administration of IV ativan as well as IV diazepam and the patient's last CIWA score is recorded to be 18 (it was up to 29). Hospitalists were asked to take over care. Mr Mcbride is getting admitted to the ICU. CIWA scoring with prn phenobarbital initiated. He had a fairly smooth withdrawal. His LFT's improved, bilirubin normalized. Because of his now subacute mildly dilated common bile duct, an MRCP was obtained. CBD measured at 9mm. [facility] consulted because of the finding a single small signal focus in the lower CBD just above the gallbladder as seen on T2 weighted images which possibly represents a small gallstone at this level. They did not believe an ERCP was indicated but will f/u with [facility] as an outpt. He is agreeable to this plan Per patient he was planning on initiating antebuse with his PCP; will prescribe a 14 day course; 500mg daily. He was found to have a LLE DVT; previously known superficial thrombophlebitis that has cleared. Eliquis initiated. He will take the larger 10mg po BID for 2 weeks rather than for 1 week, then 5mg BID. The reasoning for the longer duration of the higher dose is the interaction of Eliquis with phenobarbital which will be in his system for an extended number of days. F/U with PCP in 1-2 weeks. Strongly encourage alcohol abstinence. Home Meds and New Rx's Prescriptions: New Eliquis 5 mg Tablet 10 mg PO BID Qty: 0 RF: 0 disulfiram 500 mg tablet 500 mg PO DAILY Qty: 14 RF: 0 Continued valacyclovir 500 MG tablet 1,000 mg PO QDAY RF: 0 alum-mag hydroxide-simeth [Maalox Advanced] 355 ML suspension 15 ml PO Q6H PRN PRNRF: 0 terbinafine HCl 15 GM cream 1 applic Topical BID Qty: 1 RF: 0 cyclobenzaprine 10 MG tablet 10 mg PO TID PRN PRNRF: 0 methadone 10 MG/ML concentrate 75 mg PO DAILY RF: 0 albuterol sulfate 8.5 GM HFA aerosol inhaler 8.5 gm Inhalation QID PRN (Reason: Cough) Qty: 1 RF: 0 fluoxetine 20 mg capsule 60 mg PO DAILY RF: 0 amitriptyline 25 mg Tablet 25 mg PO HS RF: 0 pantoprazole 40 mg Tablet,Delayed Release (Dr/Ec) 40 mg PO DAILY RF: 0 acamprosate 333 mg Tablet,Delayed Release (Dr/Ec) 666 mg PO TID RF: 0 Discharge Instructions Instructions: Abuse of Alcohol (DC) Referrals: GASTROENTEROLOGY,[facility] [OTHER] - (Dilated common bile duct. Alcoholic hepatitis Pancreatitis history) Activity:: Activity as Tolerated Equipment/Supplies:: No Equipment Needed Diet:: As Tolerated DS: Summary Time Spent with Patient providing and/or coordinating discharge services: Greater than 30 minutes Status at Discharge Functional status at discharge: independent ambulation Overall status at discharge: patient is progressing back to baseline Mental Status: mental status grossly normal Speech and Movement: speech and movement normal Mood: congruent mood Affect: blunted Exam Const General: cooperative and no acute distress Eyes Sclera: sclerae normal Pupils: PERRL Resp Effort & Inspection: normal respiratory effort Auscultation: clear to auscultation bilaterally Cardio Rate: regular rate Rhythm: regular rhythm Heart Sounds: S1 normal and S2 normal GI Inspection: non-distended Palpation: soft and tender (Diffuse upper abd) Skin General skin exam: no rashes or lesions noted Extrem General: no pedal edema and no calf tenderness Psych Appearance: grossly normal Mental Status: mental status grossly normal Speech and Movement: speech and movement normal Mood: congruent mood Affect: blunted DS: Data Vitals/I&O Vitals and I&O: Vital Signs Temperature 36.6 C 07/25/20 09:00 Temperature Source Temporal Artery Scan 07/25/20 09:00 Pulse 64 07/25/20 12:02 Pulse 65 07/25/20 12:02 Respiratory Rate 13 07/25/20 12:02 Respiratory Effort 07/25/20 12:00 Respiratory Depth Normal 07/25/20 12:00 Respiratory Pattern Normal 07/25/20 12:00 Blood Pressure 114/73 07/25/20 12:02 Blood Pressure Mean 83 07/25/20 12:02 Blood Pressure Position Sitting 07/25/20 09:00 Pulse Oximetry 94 07/25/20 03:36 Oxygen Delivery Method Room Air 07/25/20 12:00 Oxygen Flow Rate 0 07/25/20 12:00 Pain Level 6 07/25/20 12:08 Intake & Output 07/24/20 07/25/20 07/25/20 23:59 11:59 23:59 Intake Total 480 / 720 150 / 150 Output Total 750 / 1950 750 / 750 Balance -270 / -1230 -600 / -600 Intake: Oral 480 / 720 150 / 150 Output: Urine 750 / 1950 750 / 750 Other: Urine Color Yellow Yellow Urine Appearance Cloudy Clear Urine Odor Strong Comment voids to urinal or commode. voids to urinal or commode. voids to urinal or commode. Voiding Methods Urinal Urinal [facility] Medical History Alcohol abuse Alcohol withdrawal delirium Choledocholithiasis Colitis Common bile duct dilatation Constipation Peptic ulcer disease Perforated ulcer Superficial thrombophlebitis Surgical History H/O lumbar discectomy x2 History of esophagogastroduodenoscopy (EGD) S/P appendectomy Family History Mother Breast cancer Social History Smoking/Tobacco Use Status: Current every day Smoking risk assessment performed?: Yes Alcohol Intake: current Alcohol Intake frequency: 3 or more drinks per day Alcohol type: beer Drug use: Daily Substance use type: marijuana, heroin, painkillers and methamphetamine Current gender identity: male Do you feel safe at home: Yes Do you feel safe in your relationship?: Yes
[2020-07-25] MEDS: Apixaban 5 MG TAB 10 MG PO (18:43)
== END 2020-07-25 19:30 | disposition home or self-care (01) | DRG 897 ==
LOC: ER 19:11 → MS 21:37 → ICU 21:40
PROVIDERS: Family Medicine; Admitting Provider Internal Medicine; Emergency Provider Physician Assistant; PCP Family Medicine; Visit Provider Internal Medicine
DX: F10.131 Alcohol abuse with withdrawal delirium (principal); I82.412 Acute embolism and thrombosis of left femoral vein; J41.0 Simple chronic bronchitis; K27.9 Peptic ulcer, site unspecified, unspecified as acute or chronic, without hemorrhage or perforation; K59.00 Constipation, unspecified; F17.210 Nicotine dependence, cigarettes, uncomplicated; K70.10 Alcoholic hepatitis without ascites; K82.8 Other specified diseases of gallbladder; K08.89 Other specified disorders of teeth and supporting structures
CPT/HCPCS: 36415; 80048; 80053; 80076; 83690; 86704; 86709; 86803; 87340; 93005; 96361; 96374; 96375; 96376; 99232; 99233; 99239; 99285; 99291; 71046; 74181; 76700; 81003; 82140; 82248; 83605; 83735; 84484; 85025; 85610; 85730; 93010; 93971; J1644; J2060; J2560; J3360

== ENCOUNTER 2021-08-01 01:51 | Outpatient (CLI) | payer MEDICAID, SELFPAY ==
--- NOTE | 2021-08-01 13:45 | DI.US_ITS ---
Exam(s) US LOWER EXTREMITY VENOUS LT EXAM: US LOWER EXTREMITY VENOUS LT CLINICAL HISTORY: DVT BACK IN 07/2020, I82.90,ONLY TOOK 1 MO OF ELIQUIS, NOW LT ANKLE FX, ?DVT TECHNIQUE: Left lower extremity venous ultrasound performed using grayscale, color-flow, and spectra l Doppler analysis. COMPARISON: US US LOWER EXTREMITY VENOUS LT from 07/23/2020 FINDINGS: The left common femoral, femoral and popliteal veins demonstrate normal compressibility, augmentation , and color Doppler. The posterior tibial veins are patent. The saphenofemoral junction is unremarka ble. There is no evidence of a Alejandra cyst. The soft tissues are unremarkable. IMPRESSION: No DVT. DATA REPOSITORY:
== END 2021-08-01 02:11 ==
PROVIDERS: PCP Family Medicine; Visit Provider Family Medicine
DX: I82.890 Acute embolism and thrombosis of other specified veins (principal)
CPT/HCPCS: 93971

== ENCOUNTER 2021-08-07 15:26 | Outpatient (REF) | payer MEDICAID, SELFPAY ==
[2021-08-07 16:57] LABS: HCT 40.5 % (40.0-50.0); MCH 29.8 pg (27.0-33.0); MCHC 32.1 % (32.0-36.0); MCV 92.9 fL (80-95); MPV 9.3 fL (8.0-11.0); Platelet Count 315 10^3/uL (130-400); RBC 4.36 10^6/uL (4.36-5.78); RDW 11.9 % (11.8-14.1); RDW-SD 41.2 fL; WBC 5.48 10^3/uL (4.4-10.8)
[2021-08-07 18:42] LABS: ALT 29 U/L (16-63); AST 22 U/L (15-37); Albumin 4.2 g/dL (3.4-5.0); Alkaline Phosphatase 63 U/L (46-116); Anion Gap 5.6 mmol/L (3-11); BUN 19 mg/dL (7-18); Bilirubin, Total 0.5 mg/dL (0.2-1.0); CO2 31.4 mmol/L (21.0-32.0); Calcium 9.1 mg/dL (8.5-10.1); Chloride 103 mmol/L (98-107); Glucose 87 mg/dL (74-106); Potassium 4.9 mmol/L (3.5-5.1); Sodium 140 mmol/L (136-145); Total Protein 7.3 g/dL (6.4-8.2)
[2021-08-08 10:00] LABS: Hepatitis C Ab w Rflx HCV PCR Negative (Negative)
[2021-08-08 10:54] LABS: HIV-1/2 Ag & Ab Screen Negative (Negative)
[2021-08-08 15:07] LABS: Calculated LDL 188 mg/dL (<100); Cholesterol 265 mg/dL (<200); HDL Cholesterol 57 mg/dL (40-60); Triglyceride 100 mg/dL (<150)
== END 2021-08-07 15:27 | disposition home or self-care (01) ==
LOC: NCHCN 15:26
PROVIDERS: PCP Family Medicine; Visit Provider Family Medicine
DX: Z87.19 Personal history of other diseases of the digestive system (principal); Z87.11 Personal history of peptic ulcer disease; Z11.4 Encounter for screening for human immunodeficiency virus [HIV]; Z11.59 Encounter for screening for other viral diseases; Z13.220 Encounter for screening for lipoid disorders
CPT/HCPCS: 80053; 80061; 85027; 86803; 87389

== ENCOUNTER 2022-01-31 15:43 | Outpatient (REF) | payer MEDICAID, SELFPAY ==
--- OUTSIDE RECORDS SUMMARY | 2022-01-31 15:45 | XMS_ITS | Encounter Summary ---
:1980 Author Organization [facility] [place] [address] Care Team Providers Name Role Phone Glendy Cohen MD Primary Care Provider Encounter Details Date Type Department Care Team Description 12/11/2021 Telephone Pain and Spine Cent[facility] at [facility] Yaquelin Miranda, [place] [phone] Social History Tobacco Use Types Packs/Day Years Used Date Current Every Day Smoker Cigarettes 0.5 11 Smokeless Tobacco: Never Used Comments: avs information given Alcohol Use Standard Drinks/Week Comments Yes 3 (1 standard drink = 0.6 oz pure alcoho l) 24oz [place] hard lemonade Alcohol Habits Answer Date Recorded How often do you have a drink containing Not asked alcohol? How many drinks containing alcohol do you have Not asked on a typical day when you are drinking? How often do you have six or more drinks on Not asked one occasion? Comment: 24oz [place] hard lemonade 10/30/2017 Sex Assigned at Date Recorded Not on file documented as of this encounter Miscellaneous Notes Telephone Encounter - Yaquelin Miranda RN - 12/11/2021 12:08 PM EDT Received rex from pt who has pending ACDF with Dr Castorena 12/24/21. Pt calling to confirm he is all set for surgery. Reviewed notes. Reviewed with pt the necessary 10 day med holds. Pt confirmed he is not taking eliquis at this time and verbalized that he understood he was to resume Eliquis use postop for a month to reduce risk of postop DVT. Pt confirmed he had had his pre-op H&P w Dr Glendy Cohen, his PCP, in [facility]. When asked, pt denied having any labs drawn at the time of the H&P. In edh I notee that the requested preop labs are designated a future which would indicate he did not goto PAT and have them drawn here at [facility] preop. 1220 pm Requested that Charline look into status of labs; to call pt to advise him if he is all set; And/or to notify him of any outstanding needs. documented in this encounter Plan of Treatment Upcoming Encounters Date Type Specialty Care Team Description 03/27/2022 Appointment Radiology Harjeet Castorena MD [facility] SP[facility] [place] [id number] (Wo rk) 03/27/2022 Office Visit Pain and Spine Center Greer Castorena MD [facility] SPINE [place], [place] [address] (Wo rk) documented as of this encounter Goals Goal Patient Goal Associated Recent Patient-Stated? Author Type Problems Progress DH Home Medication Patient No Rey , Compliance and Facing JADE Hassan Understanding Action Plan Note: Formatting of this note might be d ifferent from the original. To see at least a 50% reduction in psori atic lesions within 3-6months documented as of this encounter Visit Diagnoses Not on filedocumented in this encounter Care Teams Consultant Teacher Relationship Specialty Start Date End Date Glendy Cohen MD PCP - General 08/12/12 [address] [place] [address] documented as of this encounter
--- OUTSIDE RECORDS SUMMARY | 2022-01-31 15:45 | XMS_ITS | Encounter Summary ---
:1980 Author Organization [facility] [place] [address] Care Team Providers Name Role Phone Glendy Cohen MD Primary Care Provider Encounter Details Date Type Department Care Team Description 12/02/2021 Notes Only Pain and Spine Center [place] [phone] Social History Tobacco Use Types Packs/Day Years Used Date Current Every Day Smoker Cigarettes 0.5 11 Smokeless Tobacco: Never Used Comments: avs information given Alcohol Use Standard Drinks/Week Comments Yes 3 (1 standard drink = 0.6 oz pure alcoho l) 24oz [place] hard lemonade Alcohol Habits Answer Date Recorded How often do you have a drink containing Not asked alcohol? How many drinks containing alcohol do you have Not asked on a typical day when you are drinking? How often do you have six or more drinks on Not asked one occasion? Comment: 24oz [place] hard lemonade 10/30/2017 Sex Assigned at Date Recorded Not on file documented as of this encounter Progress Notes Jayda Dela Cruz RN - 12/02/2021 4:40 PM EDT Review of Pre Op PE shows patient was on Eliquis for 6 months following of DVT s/p ankle surgery, patient's PCP recommends patient resume Eliquis for 1 month s/p his upcoming surgery due to increased post op risk. See page 1 of scanned pre op PE in media for details. Dr. Castorena informed. documented in this encounter Plan of Treatment Upcoming Encounters Date Type Specialty Care Team Description 03/27/2022 Appointment Radiology Harjeet Castorena MD [facility] SP[facility] [place], [place] [address] (Wo rk) 03/27/2022 Office Visit Pain and Spine Center Greer Castorena MD [facility] [place], [place] [address] (Wo rk) documented as of [...] on filedocumented in this encounter Care Teams Telecom Manager Relationship Specialty Start Date End Date Glendy Cohen MD PCP - General 08/12/12 [address] [place] [address] documented as of this encounter
--- OUTSIDE RECORDS SUMMARY | 2022-01-31 15:45 | XMS_ITS | Encounter Summary ---
:1980 Author Organization [facility] [place] [address] Care Team Providers Name Role Phone Glendy Cohen MD Primary Care Provider Encounter Details Date Type Department Care Team Description 01/23/2022 Hospital Encounter XRay at [facility] Harjeet Castorena, Cervical disc [address] [place] disorder with [facility] [place] [id number] CENTER mid-cervical region [phone] [place] [address] Social History Tobacco Use Types Packs/Day Years Used Date Former Smoker Cigarettes 0.5 11 Quit: 11/25/19 Smokeless Tobacco: Never Used Comments: avs information given Alcohol Use Standard Drinks/Week Comments Not Currently 3 (1 standard drink = 0.6 oz pure alcoho l) quit drinking march2021 Alcohol Habits Answer Date Recorded How often do you have a drink containing Not asked alcohol? How many drinks containing alcohol do you Not asked have on a typical day when you are drinking? How often do you have six or more drinks on Not asked one occasion? Comment: quit drinking march202112/24/2021 Sex Assigned at Date Recorded Not on file documented as of this encounter Medications at Time of Discharge Medication Sig Dispensed Refills Start Date End Date apixaban (Eliquis) 5 mg Take 1 tablet by 0 2021 Tablet mouth 2 times daily. YOU MAY START THIS 12/28/21 - TAKE FOR 30 DAYS HYDROmorphone (Dilaudid) 2 Take 1-2 tablets by 18 tablet 0 12/25/2021 mg Tablet mouth every 4 hours as needed for Pain (Acute post-op surgical pain). acetaminophen (Tylenol) 500 Take 2 tablets by 60 tablet 0 0 12/25/2021 mg Tablet mouth every 8 hours. Continue the Tylenol around the clock for 10 days after surgery, (01/03/22). Then may take if needed per package insert. Do not take more than 3,000 mg of Tylenol in 24 hours. polyethylene glycoL Take 17 g by mouth 2 0 2021 (Miralax) 17 gram Powder in times daily. Packet senna-docusate (Pericolace) Take 2 tablets by 0 0 12/25/2021 8.6-50 mg Tablet mouth 2 times daily. pregabalin (LYRICA) 100 mg Take 100 mg by mouth 0 Capsule 2 times daily. multivitamin (THERAGRAN) Take 1 tablet by 0 Tablet mouth daily. FLUoxetine (PROzac) 40 mg Take 40 mg by mouth 0 Capsule daily. amitriptyline (Elavil) 25 25 mg nightly. 0 2020 mg Tablet FLUoxetine (PROzac) 10 mg Take 20 mg by mouth 0 Capsule daily. pantoprazole (PROTONIX) 40 Take 40 mg by mouth 0 mg Tablet, Delayed Release daily. (E.C.) Betamethasone Valerate 0.12 Apply topically as 0 % Foam needed. Selenium Sulfide 2.25 % Apply topically as 0 Shampoo needed. calcipotriene (DOVONEX) Apply to the 60 g 3 12/23/2018 0.005 % CreamIndications: affected area on the Psoriasis groin twice daily till clear. Can use twice daily in the ears on Q-tip till clear cyclobenzaprine (FLEXERIL) Take 10 mg by mouth 0 10 mg Tablet 3 times daily as needed for Muscle spasms. methadone (METHADOSE) 10 Take 115 mg by mouth 0 mg/5 mL Solution daily. valACYclovir (VALTREX) 500 Take 500 mg by mouth 0 mg tablet 2 times daily. albuterol (PROVENTIL Inhale 2 puffs into 0 HFA;VENTOLIN HFA) 90 the lungs every 4 mcg/actuation inhaler hours as needed. Use with spacer documented as of this encounter Plan of Treatment Upcoming Encounters Date Type Specialty Care Team Description 03/27/2022 Appointment Radiology Harjeet Castorena MD [facility] [id number] (Wo rk) 03/27/2022 Office Visit Pain and Spine Center Greer Castorena MD [facility] SP[facility] [place], [place] [address] (Wo rk) documented as of this encounter Goals Goal Patient Goal Associated Recent Patient-Stated? Author Type Problems Progress Home Medication Patient No [place] , Compliance and Facing JADE Hassan Understanding Action Plan Note: Formatting of this note might be d ifferent from the original. To see at least a 50% reduction in psori atic lesions within 3-6months documented as of this encounter Procedures Procedure Name Priority Date/Time Associated Diagnosis Comme nts XR CERVICAL SPINE Routine 01/23/2022 2:48 PM Cervical disc dis order Results for this 1 VIEW EDT with radiculopathy of proced ure are in mid-cervical region the resu lts section. documented in this encounter Results XR Cervical Spine 1 View (01/23/2022 2:48 PM EDT) Anatomical Region Laterality Modality C-spine N/A Digital Radiography Specimen (Source) Anatomical Location Collection Method / Collectio n Time Received Time / Laterality Volume Impressions 01/24/2022 8:45 AM EDT Status post anterior cervical disc fusion C5-7 without radiographic finding of complication or acute abnormality. Thank you for letting us participate in the care of this patient. ??If you are a health care provider and have any questi ons regarding this report, please contact the number below. ??For patients who have questions please contact the health manager critical care unit that requested your imaging first. ? Electronically signed by: Mara krause MD, [facility] ([phone]), at 01/24/2022 8:45 AM Narrative 01/24/2022 8:45 AM EDT EXAMINATION: XR CERVICAL SPINE 1 VIEW CLINICAL HISTORY: Upright Lateral (singl ed view) for history of neck pain, now S/P surgery TECHNIQUE: Lateral standing view of the cervical sp ine COMPARISON: Radiographs December 24, 2021 FINDINGS: The lateral view images through the C7-T 1 disc space. Vertebral body height is preserved. No displaced fracture or dest ructive bone lesion. Anterior cervical disc fusion with plate , screws and interbody bone graft C5-7 is intact without adjacent fracture, gra ft subsidence/fragmentation or malalignment. Mild narrowing and osteophytes at the at lantodental interval and C4-5 are unchanged. Unchanged mild facet osteoart hropathy at the lower cervical spine. Survey of skull base, maxillofacial stru ctures and prevertebral soft tissues is normal. Procedure Note Mara Swanson MD - 01/24/2022Forma tting of this note might be different from the original. EXAMINATION: XR CERVICAL SPINE 1 VIEW CLINICAL HISTORY: Upright Lateral (singl ed view) for history of neck pain, now S/P surgery TECHNIQUE: Lateral standing view of the cervical sp ine COMPARISON: Radiographs December 24, 2021 FINDINGS: The lateral view images through the C7-T 1 disc space. Vertebral body height is preserved. No displaced fracture or dest ructive bone lesion. Anterior cervical disc fusion with plate , screws and interbody bone graft C5-7 is intact without adjacent fracture, gra ft subsidence/fragmentation or malalignment. Mild narrowing and osteophytes at the at lantodental interval and C4-5 are unchanged. Unchanged mild facet osteoart hropathy at the lower cervical spine. Survey of skull base, maxillofacial stru ctures and prevertebral soft tissues is normal. IMPRESSION Status post anterior cervical disc fusio n C5-7 without radiographic finding of complication or acute abnormality. Thank you for letting us participate in the care of this patient. If you are a health care provider and have any questi ons regarding this report, please contact the number below. For patients w ho have questions please contact the health manager critical care unit that requested your imaging first. Electronically signed by: Mara krause MD, 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
--- OUTSIDE RECORDS SUMMARY | 2022-01-31 15:45 | XMS_ITS | Encounter Summary ---
:1980 Author Organization [facility] [place] [address] Care Team Providers Name Role Phone Glendy Cohen MD Primary Care Provider Reason for Visit Reason Comments Follow Up Surgery Encounter Details Date Type Department Care Team Description 01/23/2022 Office Visit [facility] Harjeet Castorena, S/P C5-C7 ACDF at [facility] [place] (Dr. Castorena) [facility] [address] [place] [facility] [id number] [place] [address] [phone] Social History Tobacco Use Types Packs/Day Years [...] on file documented as of this encounter Last Filed Vital Signs Vital Sign Reading Time Taken Comments Blood Pressure 108/57 01/23/2022 3:09 PM EDT Pulse 76 01/23/2022 3:09 PM EDT Temperature - - Respiratory Rate - - Oxygen Saturation - - Inhaled Oxygen Concentration - - Weight 88.5 kg (195 lb) 01/23/2022 3:09 PM EDT Height 170.2 cm (5' 7) 01/23/2022 3:09 PM EDT Body Mass Index 30.54 01/23/2022 3:09 PM EDT documented in this encounter Patient Instructions Patient InstructionsPearsHarjeet reese MD - 01/23/2022 3:40 PM EDT Follow-up with Jamil Barnes in 2 months with x-rays prior. documented in this encounter Progress Notes Harjeet Castorena MD - 01/23/2022 3:40 PM EDT Date of surgery: 12/24/2021 Surgery: C5-C7 ACDF for bilateral radicular symptoms Interval history: Mr. Mcbride returns today about 1 month out from surgery. His neck pain radiating to both upper extremities has improved. About 1 week after surgery, he developed focal right shoulder pain that is worse with shoulder forward elevation as well as abduction and cross body adduction. He cannot sleep on his right side. He reports that he had some right shoulder pain before surgery but itis more pronounced now. The symptoms came on without inciting event. He is taking his baseline methadone as well as Tylenol. His swallowing is back to normal. He has not generally been wearing the collar. He admits to smoking about 4 cigarettes/day. He denies any fevers, chills, or drainage from the incision. 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 Physical exam General: Patient is comfortable, no acute distress Neck: He has well-healed anterior incision. There is no drainage or erythema. Neurological exam: He has mildly decreased decreased sensation in the radial aspect of both hands. Shoulder exam: He has positive impingement signs in his right shoulder. Imaging: Lateral x-ray of the cervical spine 01/23/2022 was reviewed. This shows some mild subsidenceat C6-C7. There are no signs of hardware failure or loosening. Assessment/plan: Mr. Mcbride is about 1 month out from surgery. His neck and radicular symptoms are much improved. He developed right shoulder pain about 1 week after surgery. He had similar pain beforesurgery, though it seems more pronounced now. I recommended that he rest the shoulder for now. 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 He is going to follow-up with my PA in 2 months with repeat x-rays at that time. He can reassess his shoulder pain and then refer him appropriately ifthat continues to be a problem. I reiterated the need for smoking cessation to decrease the risk of p seudoarthrosis. documented in this encounter Plan of Treatment Upcoming Encounters Date Type Specialty Care Team Description 03/27/2022 Appointment Radiology Harjeet Castorena MD [facility] [address] [facility] [place], [place] [address] (Wo rk) 03/27/2022 Office Visit [facility] Greer Castorena MD [facility] [place], [place] [address] (Wo rk) Scheduled Orders Name Type Priority Associated Diagnoses Order S chedule XR Cervical Spine 2 or Imaging Routine 12/24/21 S/P C5-C7 ACDF Expected: 03/23/2022, 3 Views (Dr. Castorena) Expires: 01/23 documented as of this encounter Goals Goal Patient Goal Associated Recent Patient-Stated? Author Type Problems Progress DH Home Medication Patient No Rey , Compliance and Facing JADE Hassan Understanding Action Plan Note: Formatting of this note might be d ifferent from the original. 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 Castorena) Arthrodesis status documented in this encounter Care Teams Weapons Electrical Engineering Officer Relationship Specialty Start Date End Date Glendy Choen MD PCP - General 08/12/12 [address] [place] [address] documented as of this encounter
--- OUTSIDE RECORDS SUMMARY | 2022-01-31 15:45 | XMS_ITS | Encounter Summary ---
:1980 Author Organization [facility] [place] [address] Care Team Providers Name Role Phone Glendy Cohen MD Primary Care Provider Encounter Details Date Type Department Care Team Description 12/17/2021 Telephone Pain and Spine Austyn krause at [facility] [place] [address] Social History Tobacco Use Types Packs/Day Years Used Date Current Every Day Smoker Cigarettes 0.5 11 Smokeless Tobacco: Never Used Comments: avs information given Alcohol Use Standard Drinks/Week Comments Yes 3 (1 standard drink = 0.6 oz pure alcoho l) morgan moore lemonade Alcohol Habits Answer Date Recorded How often do you have a drink containing Not asked alcohol? How many drinks containing alcohol do you have Not asked on a typical day when you are drinking? How often do you have six or more drinks on Not asked one occasion? Comment: morgan Gao hard lemonade 10/30/2017 Sex Assigned at Date Recorded Not on file documented as of this encounter Miscellaneous Notes Telephone Encounter - Dtotie Garibay - 12/17/2021 12:49 PM EDT This patient had a pre-op physical with his PCP for which there were labs sent asked to be done while the patient was there. These labs were not done at the PCP's office per patient. There are lab results in the patient chart from back in July 2021. I spoke with Dr. Castorena and he stated that no new labs are needed prior to patient having surgery. documented in this encounter Plan of Treatment Upcoming Encounters Date Type Specialty Care Team Description 03/27/2022 Appointment Radiology Harjeet Castorena MD [facility] [address] [place], [place] [address] (Wo rk) 03/27/2022 Office Visit [facility] Sp[facility] Greer Castorena MD [facility] [place], [place] [address] (Wo rk) documented as of [...] on filedocumented in this encounter Care Teams Drum Carrier Relationship Specialty Start Date End Date Glendy Cohen MD PCP - General 08/12/12 [address] [place] [address] documented as of this encounter
--- OUTSIDE RECORDS SUMMARY | 2022-01-31 15:45 | XMS_ITS | Encounter Summary ---
:1980 Author Organization [facility] [place] [address] Care Team Providers Name Role Phone Glendy Cohen MD Primary Care Provider Encounter Details Date Type Department Care Team Description 12/24/2021 Anesthesia Event PACU at [facility] Ty Alfaro MD [facility] [place] [address] [place] [address] [phone] (Wo rk) Anesthesia Record Procedure Summary Procedure Name Responsible Anesthesia Start Anesthesia Stop Time Anesthesiologist Time Acute Pain Service (consult) Events No events on file. No medications on file. Agents No agents on file. Blood No blood administrations on file. Lines, Drains, and Airways No LDAs on file. documented in this encounter Social History Tobacco Use Types Packs/Day Years Used Date Former Smoker Cigarettes 0.5 11 Quit: 11/25/19 22 Smokeless Tobacco: Never Used Comments: avs information [...] on file documented as of this encounter Plan of Treatment Upcoming Encounters Date Type Specialty Care Team Description 03/27/2022 Appointment Radiology Harjeet Castorena MD [facility] [address] [facility] [place], [place] [address] (Wo rk) 03/27/2022 Office Visit [facility] Sp[facility] Greer Castorena MD [facility] ER [address] [facility] [place], [place] [address] (Wo rk) documented as of [...] on filedocumented in this encounter Care Teams Land Surveyor Manager Relationship Specialty Start Date End Date Glendy Cohen MD PCP - General 08/12/[address] [place] [address] documented as of this encounter
--- OUTSIDE RECORDS SUMMARY | 2022-01-31 15:45 | XMS_ITS | Encounter Summary ---
:1980 Author Organization [facility] [place] [address] Care Team Providers Name Role Phone Glendy Cohen MD Primary Care Provider Encounter Details Date Type Department Care Team Description 12/23/2021 Telephone [facility] [place] [address] Social History Tobacco Use Types Packs/Day Years Used Date Current Every Day Smoker Cigarettes 0.5 11 Smokeless Tobacco: Never Used Comments: avs information given Alcohol Use Standard Drinks/Week Comments Yes 3 (1 standard drink = 0.6 oz pure alcoho l) 24oz [place] hard lemonade Alcohol Habits Answer Date Recorded How often do you have a drink containing Not asked alcohol? How many drinks containing alcohol do you have Not asked on a typical day when you are drinking? How often do you have six or more drinks on Not asked one occasion? Comment: 24oz [place] hard lemonade 10/30/2017 Sex Assigned at Date Recorded Not on file documented as of this encounter Miscellaneous Notes Telephone Encounter - Mera [place] LPN - 12/23/2021 4:19 PM EDT Sugey Garcia for the last minute of this notice, Dr. Harjeet Castorena is doing surgery on this patient tomorrow, he is on Methadone 115 mg daily. He goes through [facility], his counselor is Gisella the number is [phone]. He was signed up for surgery in July, I reached out to [facility] twice I believe in August 2021, no response, our schedulers tried to reach out to the Pain clinic for recommendations post op, but Jose Enrique never called back to accept the appointment. This is just a heads up that he may require your expertise in post op pain management. I am really sorry for this last minute heads up. Thanks for your help. Mera This was emailed to acute pain services nursing 12-23-21 at 420 PM documented in this encounter Plan of Treatment Upcoming Encounters Date Type Specialty Care Team Description 03/27/2022 Appointment Radiology Harjeet Castornea MD [facility] [address] [facility] [place] [id number] (Wo rk) 03/27/2022 Office Visit [facility] Sp[facility] Greer Castorena MD [facility] [place], [place] [address] (Wo rk) documented as of [...] on filedocumented in this encounter Care Teams Snake Charmer Relationship Specialty Start Date End Date Glendy Cohen MD PCP - General 08/12/12 [address] [place] [address] documented as of this encounter
--- OUTSIDE RECORDS SUMMARY | 2022-01-31 15:45 | XMS_ITS | Encounter Summary ---
:1980 Author Organization [facility] [place] [address] Care Team Providers Name Role Phone Glendy Cohen MD Primary Care Provider Reason for Referral Consultation (Routine) - Closed Specialty Diagnoses / Procedures Referred By Contact Refer red To Contact Gastroenterology Diagnoses History of pancreatitis hx of pancreatitis Glendy Cohen MD [facility] Gastro 4l [address] [place], [place] [address] [place] [phone] Phone: Fax: Referral ID Status Reason Start Date Expiration Date Visits V isits Requested Authorized [id number] Closed Consult, Test 08/26/2021 08/26/2022 6 6 & Treat PCP Updated and/or Approved Encounter Details Date Type Department Care Team Description 08/26/2021 Transcribe Orders eDH Incoming Glendy Cohen, History of Referrals pancreatitis [phone] [address] [place] [address] Social History Tobacco Use Types Packs/Day Years Used Date Current Every Day Smoker Cigarettes 0.5 11 Smokeless Tobacco: Never Used Comments: avs information given Alcohol Use Standard Drinks/Week Comments Yes 3 (1 standard drink = 0.6 oz pure alcoho l) 24oz [place] hard lemonade Alcohol Habits Answer Date Recorded How often do you have a drink containing Not asked alcohol? How many drinks containing alcohol do you have Not asked on a typical day when you are drinking? How often do you have six or more drinks on Not asked one occasion? Comment: morgan bush 10/30/2017 Sex Assigned at Date Recorded Not on file documented as of this encounter Plan of Treatment Upcoming Encounters Date Type Specialty Care Team Description 03/27/2022 Appointment Radiology Harjeet Castorena MD [facility] [address] [place], [place] [address] (Wo rk) 03/27/2022 Office Visit [facility] Sp[facility] Greer Castorena MD [facility] [place], [place] [address] (Wo rk) Scheduled Referrals Name Type Priority Associated Order Schedule Diagnoses Referral to Outpatient Routine History of Ordered: Gastroenterology Referral pancreatitis 08/26/2021 documented as of this encounter Goals Goal [...] as of this encounter Visit Diagnoses Diagnosis History of pancreatitis Personal history of other diseases of di gestive system documented in this encounter Care Teams Art Preparator Relationship Specialty Start Date End Date Glendy Cohen MD PCP - General 08/12/12 [address] [place] [address] documented as of this encounter
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
--- OUTSIDE RECORDS SUMMARY | 2022-01-31 15:45 | XMS_ITS | Encounter Summary ---
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 2 g vial attach to sodium chloride 0.9% 100 mL Mini-Bag Plus ??? acetaminophen (Tylenol) tablet 1,000 mg ??? pantoprazole EC (Protonix) tablet 40 mg ??? ketamine (Ketalar) (1 mg/mL) in sodium chloride 0.9% 250 mL infusion AND ketamine shift total and Settings verification ??? [START ON 12/25/2021] methadone (Dolophine) (10 mg/mL) oral liquid 115 mg ??? lidocaine (Lidoderm) 5% patch 3 patch AND [START ON 12/25/2021] lidocaine (Lidoderm) topical patch REMOVAL ??? HYDROmorphone (Dilaudid) tablet 2 mg OR HYDROmorphone (Dilaudid) tablet 4 mg OR HYDROmorphone (Dilaudid) tablet 6 mg ??? cyclobenzaprine (Flexeril) tablet 10 mg ??? pregabalin (Lyrica) capsule 100 mg ??? sodium chloride 0.9% 1,000 mL (12/24/21 1252) ??? ketamine OBJECTIVE: @VITALSRANGE@ Intake/Output Summary (Last 24 hours) at 12/24/2021 1745 Last data filed at 12/24/2021 1600 Gross per 24 hour Intake 1650 ml Output 575 ml Net 1075 ml Body mass index is 31.06 kg/m??. Exam: General: NAD, awake/alert, responds to questions Neck: No evidence of hematoma, dressing c/d/i CV: RRR Resp: Breathing comfortably, lungs CTAB Motor: Segment Muscle Action R L C5 Deltoid Shoulder Abd 5 5 C5 Biceps Elbow flexion 5 5 C6 ECRL, ECRB Wrist extension 5 5 C7 Triceps Elbow extension 5 5 C8 Hand Grasp 5 5 T1 Hand intrinsics Finger abd/adduction 5 5 L2 Iliopsoas Hip flexion 5 5 L3 Quadriceps Knee extension 5 5 L4,5 Hamstring Knee Flexion 5 5 L4 Tibialis anterior Dorsiflexion 5 5 L5 Extensor hallucis Great toe extension 5 5 S1 Gastrocnemius, FHL Plantar flexion 5 5 Sensory: Sensation (light touch) (0=absent, 1=impaired, 2=normal) Segment location Right Left C4 top of AC joint 2 2 C5 lat side antecub fossa 2 2 C6 dorsal thumb 1 2 C7 dorsal middle finger 2 2 C8 dorsal small finger 2 2 T1 med side antecub fossa 2 2 T2 apex axilla 2 2 T3 3rd IS (intercostal space) 2 2 T4 nipple line 2 2 T5 5th IS 2 2 T6 6th IS 2 2 T7 7th IS 2 2 T8 8th IS 2 2 T9 9th IS 2 2 T10 10th iS 2 2 T11 11th iS 2 2 T12 mid inguinal ligament 2 2 L1 upper inner thigh 2 2 L2 mid-ant thigh 2 2 L3 med femoral condyle 2 2 L4 medial mal 2 2 L5 dorsum foot, 3rd MT 2 2 S1 lat heal 2 2 S2 Popliteal fossa 2 2 Lab Results Component Value Date NA 137 12/23/2018 K 4.7 12/23/2018 CL 101 12/23/2018 CO2 26 12/23/2018 BUN 15 12/23/2018 CREATININE 1.04 12/23/2018 GLUCOSE 104 12/23/2018 CALCIUM 9.6 12/23/2018 Lab Results Component Value Date WBC 6.8 12/23/2018 HGB 14.7 12/23/2018 HCT 43.1 12/23/2018 MCV 98.2 (H) 12/23/2018 PLATELET 287 12/23/2018 Lab Results Component Value Date INR 1.1 10/26/2017 IMAGING: Intra-op lateral shows instrumentation in place at C5-C7. ASSESSMENT / PLAN: Jose Enrique Mcbride is a 41 y.o. male Day of Surgery s/p C5-C7 ACDF. Discharge pending evaluation by PT/OT on POD1. Activity: AAT Closure: Resorbable sutures Dressing: tegaderm, 4x4 Drain: 7 holes, remove POD1 Anticoagulation: restart home eliquis on Thursday morning Antibiotics: periop Consults: PT/OT, APS Dispo: pending PT/OT eval Follow-up: as scheduled Alvaro Hickey MD 12/24/2021 Future Appointments Date Time Provider Department Center 01/22/2022 11:00 AM Angela Meyer MD [facility] [place] [facility] [place]/23/2022 3:00 PM [facility] DX ROOM 2 MH Xray [facility] Rad 01/23/2022 3:40 PM Harjeet Orta MD [facility] [place] [facility] 02/10/2022 2:30 PM Angela Meyer MD [facility] [place] [facility] Violeta Gonsalves RN - 12/24/2021 12:29 PM EDT 1145: Report received from RANDI Clark. Care assumed. Vital signs stable. Oral airway in place. Alarmsaudible and set appropriately. Report received from surgical service and anesthesia. Anterior neck incision dressing clean, dry, intact. CAPO drain draining serosanguinous drainage. Patient in no apparent distress. 1215: Oral airway removed. [place] J collar removed due to discomfort. 1330: Patient resting in bed. Appears comfortable. Converses appropriately. Tolerating ice chips andsips of water. Report given to RN in SSU. Patient pended to x-ray. Tiny Bell RN - 12/24/2021 11:24 AM EDT Pt arrived from the OR in a bed with service and anesthesia in attendance. Monitors attached. Alarmson and audible. Lidocaine gtt running upon arrival. documented in this encounter H&P Notes Harjeet Orta MD - 12/24/2021 7:06 AM EDT Patient Name: Jose Enrique Mcbride Patient Age: 41 y.o. Birthdate: 1980 Admit date: 12/24/2021 Attending Physician: Harjeet Orta MD Patient seen and examined. Agree with assessment by PCP. He cont to have neck pain radiating to R>L UE. On exam, ctab, rrr, has dec sensation R hand. Will proceed with surgery as planned (C5-C7 ACDF). Patient is a full-code. documented in this encounter Miscellaneous Notes Initial Assessments - Dheeraj Barksdale RN - 12/25/2021 12:01 PM EDT Office of Care Management Initial Assessment Medical record reviewed. Plan of care and patient status discussed with direct care Registered Nurseand/or Care Team in multidisciplinary rounds. Reason for Hospitalization: I needed surgery on my neck Present on Admission: ??? S/P cervical spinal fusion Hospitalizations Within the Past 30 Days: Patient receiving hospital care under Same Day Overnight (OP) status. Admission order reviewed. Primary Insurance on file: MEDICAID [place] Secondary Insurance on file:@ Primary care provider on file: Glendy Cohen MD [phone] [facility] [place] [place] [facility] [address] [facility] [address] [facility] [address] [facility] [place], [place] [address] [facility] [address] [id number] - [place] [address] [facility] [address] [facility] [address] [id number] [place], [place] - [address] [address] Advance Care Planning: Attempt Cardiopulmonary Resuscitation - Inpatient <no information> - Current Functional Ability: Functional Status Prior to Admission: Independent Home Environment: . . Accessibility Concerns: . Current DME: [facility] [address] [facility] [address] Social & Family Supports: All names listed below confirmed with patient as current and correct Extended Emergency Contact Information Primary Emergency Contact: Darlin Joy [facility] [place] Relation: Significant Other Secondary Emergency Contact: RAMON CAMPBELL Mobile Relation: Step parent Current Care Provided by: Transportation: rides, unreliable from others Transportation Anticipated: health plan transportation RCT ride Assessment: Patient with no apparent RNCM/SW needs at this time. No housing, transportation, insurance, resources concerns identified at this time. Supports in place to achieve a safe post-hospital transition. No identified barriers to accessing necessary care and/or follow-up after discharge. Plan: Patient to d/c to home via RCT when medically ready. Registered Nurse Rn Transport / Child And Adolescent Therapist will continue to follow patient???s progress and remain available if situation changes for coordination of care, psychosocial support and/or discharge planning. Office of Care Management David Barksdale RN, BSN Case Management [phone] Consult Note - Ty Alfaro MD - 12/24/2021 3:13 PM EDT Acute Pain Service Consultation Pt Age: 41 y.o. Date of Consultation: 12/24/2021 Consult Service: Orthopaedics Place of Service: [facility] Responsible Attending: Harjeet Orta MD Housestaff/Associate Provider: Alvaro Hickey MD Consultation Reason: I am seeing Jose Enrique Mcbride in consultation at the requests of Dr. orta for my opinion regarding acute post-surgical pain management in the setting of chronic high dose opiate use and tolerance. History of Present Illness: Jose Enrique Mcbride is a 41 y.o. male w/ a PMHx significant for prior DVT (on apixaban), current smoker,asthma/COPD (symbicort, albuterol), Opioid Use Disorder/chronic pain (on methadone) who is now day of surgery s/p a C5-C7 ACDF currently on his home methadone, Tylenol, PRN PO dilaudid scale, and a lidocaine infusion that was started intra-op. Review of Systems: Sedation Level: Mild Pruritis/Skin: Denies GI/Bowels/Nausea: Denies Affect: anxious, appropriate Pain Behaviors: minimal movements General: Patient laying in bed, no acute distress Past Medical and Surgical History: Past Medical History: Diagnosis Date ??? Neck pain, chronic 08/12/2012 Past Surgical History: Procedure Laterality Date ??? LAPAROSCOPIC APPENDECTOMY ??? PRO CLOSED TREATMENT NASAL FRACTURE W MANIPULATION W STABILIZATION N/A 10/30/2017 NASAL BONE FX CLOSED REDUCTION WITH STABILIZATION (WRVU 1.88) performed by Stevie García MD at [facility] MAIN OR ADR/Allergies: Allergies Allergen Reactions ??? Clindamycin Rash ??? Nsaids (Non-Steroidal Anti-Inflammatory Drug) History of ulcers Pertinent Medications: Current Facility-Administered Medications: ??? BUpivacaine-EPINEPHrine (Marcaine-epiNEPHrine) 0.25 %-1:200,000 injection, , , Once PRN, Harjeet Orta MD, 5 mL at 12/24/21 0824 ??? gelatin adsorbable (Gelfoam) sponge, , , Once PRN, Harjeet Orta MD, 1 each at 12/24/21 0850 ??? thrombin (bovine) (Thrombin-Jmi) solution, , , Once PRN, Harjeet Orta MD, 5,000 Units at 12/24/21 0850 ??? albuteroL (Proventil) nebulizer solution 2.5 mg, 2.5 mg, Nebulization, Q6H PRN, Noah Gutierrez MD ??? amitriptyline (Elavil) tablet 25 mg, 25 mg, Oral, Nightly, Noah Gutierrez MD ??? FLUoxetine (PROzac) capsule 40 mg, 40 mg, Oral, Daily, Noah Gutierrez MD ??? [START ON 12/25/2021] methadone (Methadose) (2 mg/mL) oral liquid 115 mg, 115 mg, Oral, Daily, Noah Gutierrez MD ??? valACYclovir (Valtrex) tablet 500 mg, 500 mg, Oral, BID, Noah Gutierrez MD ??? sodium chloride 0.9 % (flush) (BD PosiFlush Normal Saline 0.9) flush 5 mL, 5 mL, Intravenous, BID, Noah Gutierrez MD ??? sodium chloride 0.9 % (flush) (BD PosiFlush Normal Saline 0.9) flush 5-20 mL, 5-20 mL, Intravenous, Q1 Min PRN, Noah Gutierrez MD ??? lidocaine (Xylocaine) 1% (10 mg/mL) injection 3 mg, 0.3 mL, Subcutaneous, Once PRN, Noah Gutierrez MD ??? polyethylene glycoL (Miralax) packet 17 g, 17 g, Oral, BID, Noah Gutierrez MD ??? senna-docusate (Pericolace) 8.6-50 mg per tablet 2 tablet, 2 tablet, Oral, BID, Noah Gutierrez MD ??? ondansetron (pf) (Zofran) (2 mg/mL) injection 4 mg, 4 mg, Intravenous, Q8H PRN, Noah Gutierrez MD ??? sodium chloride 0.9% infusion, 1,000 mL, Intravenous, Continuous, Noah Gutierrez MD, Last Rate: 100 mL/hr at 12/24/21 1252, 1,000 mL at 12/24/21 1252 ??? ceFAZolin (Ancef) 2 g vial attach to sodium chloride 0.9% 100 mL Mini-Bag Plus, 2 g, Intravenous, Q8H, Noah Gutierrez MD, Last Rate: 200 mL/hr at 12/24/21 1253, 2 g at 12/24/21 1253 ??? HYDROmorphone (Dilaudid) tablet 2 mg, 2 mg, Oral, Q4H PRN OR HYDROmorphone (Dilaudid) tablet4 mg, 4 mg, Oral, Q4H PRN OR HYDROmorphone (Dilaudid) tablet 6 mg, 6 mg, Oral, Q4H PRN, Noah Gutierrez MD, 6 mg at 12/24/21 1233 ??? acetaminophen (Tylenol) tablet 1,000 mg, 1,000 mg, Oral, Q8H CESAR, Noah Gutierrez MD ??? pantoprazole EC (Protonix) tablet 40 mg, 40 mg, Oral, Daily, Noah Gutierrez MD ??? ketamine (Ketalar) (1 mg/mL) in sodium chloride 0.9% 250 mL infusion, 0.3 mg/kg/hr, Intravenous,Continuous AND ketamine shift total and Settings verification, , Intravenous, 2 Times Daily - Shift Total, Reynaldo Giron MD Family History: History reviewed. No pertinent family history. Physical Exam: Last Set of Vitals: BP 141/78 (BP Location (NBP): Left arm, Patient Position: Lying) Pulse 91 Temp 37.3 ??C (99.1 ??F) (Oral) Resp 16 Ht 170.2 cm (5' 7) Wt 89.9 kg (198 lb 4.8 oz) SpO2 97% BMI 31.06 kg/m?? Affect: anxious, appropriate Pain Behaviors: minimal movements, grimacing/wincing General: Patient laying in bed, mild distress Home analgesics: - Tylenol - Pt reports occasional Ibuprofen - Flexeril 10mg TID - Lyrica 100 mg BID - Methadone 115mg daily Assessment: There is objective evidence of acute post-operative surgical pain on chronic nociceptive and neuropathic pain in this 41 y.o. male w/ a PMHx significant for chronic pain and high dose opiate use now s/p ACDF. The patient states that his chronic pain prior to surgery was stable on his home medication regimen but that this pain is never better than a 6/10, which is tolerable for him. He rates his current painas 8-9 on his current regimen and does not feel the lidocaine is helping much. After discussion withthe primary team, plan is for discharge home tomorrow, but it is unclear if they will prescribe additional opiates in addition to his home Methadone. Given that his pain is not currently adequately controlled, it is also unclear if discharge tomorrow will be feasible without additional opiates. Recommendation: - Continue Tylenol - Continue home Methadone 115mg (would benefit from splitting home dosing in half and taking twice aday Q12hrs) - D/C lidocaine infusion - Start Ketamine infusion while in short stay (APS will order and manage) Can stop when ready for discharge. - Increase PO dilaudid scale to Q3 - Restart home Flexeril 10 TID, and home Lyrica 100 BID Consult service will continue to follow patient. Reynaldo Giron MD 12/24/2021 APS Pager [phone] I have seen and examined the patient. I have reviewed Dr. Giron's note and agree with the findings, assessment and plan. Brief Op Note - Harjeet Orta MD - 12/24/2021 11:40 AM EDT Brief Operative Note Patient Name: Jose Enrique Mcbride : [id number] MR#: [id number] Case Date: 12/24/2021 Surgeon: Surgeon(s) and Role: * Harjeet Orta MD - Primary * Christiano Botello MD - Fellow * Noah Gutierrez MD - Resident Preoperative diagnosis: Cervical radiculopathy Postoperative diagnosis: Cervical radiculopathy Procedure: C5-C7 ACDF with anterior plate and structural allografts ([id number], [id number], [id number], 91301 x 2) Anesthesia: General Findings: There was severe bilateral forminal stenosis at C5-C6 and C6-C7. At the conclusion of the case, bilateral C6 and C7 roots and the spinal cord were fully decompressed. No CSF. Complications: None Intake: 1.6 L crystalloid Output: Estimated Blood Loss: 50 mL Drains: Anterior cervical x 1 Specimens removed during surgery: None Disposition: awakened from anesthesia, extubated and taken to the recovery room in a stable condition, having suffered no apparent untoward event. Condition: doing well without problems Attestation: Case Date: 12/24/2021 I was present and I participated during the entire procedure (does not need to include opening and closing). Op Note - Harjeet Orta MD - 12/24/2021 8:24 AM EDT [facility] [place] Patient Name: Jose Enrique Mcbride : [id number] MR#: [id number] Case Date: 12/24/2021 Surgeon: Surgeon(s) and Role: * Harjeet Orta MD - Primary * Noah Gutierrez MD - Resident Preoperative diagnosis: Cervical radiculopathy Postoperative diagnosis: Cervical radiculopathy Procedure: 1. C5-C7 anterior cervical discectomy and fusion 2. Anterior cervical plating C5-C7 3. Application structural allograft C5-C6 and C6-C7 Implants: Globus Johnson Anesthesia: General Operative findings: There was severe bilateral forminal stenosis at C5-C6 and C6-C7. At the conclusion of the case, bilateral C6 and C7 roots and the spinal cord were fully decompressed. Indications for procedure: Mr. Mcbride is a 41-year-old male who presented with longstanding neck pain radiating to his upper extremities in the setting of cervical spondylosis with bilateral foraminal stenosis at C5-C6 and C6-C7. He failed to improve despite nonoperative treatment and elected to undergo surgery after full discussion of the potential risks and benefits thereof. Description of procedure: The patient was taken to the operating room, and general anesthesia was administered. He was positioned supine on the operating table with his neck slightly extended and his arms tucked by his side. A timeout was performed to identify the patient and the planned procedure. Hereceived preoperative antibiotics. The neck was prepped with Hibiclens and DuraPrep draped in the usual sterile fashion. A transverse incision was made from the midline to the medial border of the left sternocleidomastoidat approximately the C6 level. The electrocautery was used to dissect down to the level of the platysma, which was divided in line with the incision. Cranial and caudal platysmal flaps were raised. Thedeep cervical fascia was incised along the medial border of the left sternocleidomastoid, and the plane between the sternocleidomastoid laterally and strap muscles medially was developed. Deeper dissection between the carotid sheath laterally and the trachea esophagus medially brought us to the prevertebral fascia. This was divided and bluntly elevated off the C5, C6, and C7 vertebrae. A distraction pin was placed in C5, and a lateral x-ray was obtained demonstrating our level. The longus coli muscles were elevated from C5-C7 bilaterally. The self-retaining retractor blades were placed. The endotracheal balloon was deflated and then reinflated to decrease pressure on the recurrent laryngeal nerve. A distraction pin was placed in C7, and distraction was applied across the interspaces. We then turned our attention to the discectomies. We started at C6-C7. An annulotomy was created, and a complete discectomy was then performed using combination of the curettes and pituitary. The posterior osteophytes were thinned with a high-speed bur. PLL was divided in line with its fibers and taken down with a Kerrison. The posterior osteophytes were removed. Foraminotomies were performed bilaterally. Following discectomy, we confirmed that bilateral exiting nerve roots and spinal cord were fully decompressed. Hemostasis was achieved in the epidural space using Floseal. A similar discectomy wasperformed at C5-C6. We found that a 6 mm lordotic trials fit appropriately at each level. The wound was copiously irrigated. The allografts were positioned within the disc spaces, and the distraction pins were removed. The pin holes were bone waxed. Morselized local bone graft was placed lateral to the allograft. An appropriate sized plate was placed along the anterior aspect of the spine. Agent Broker holes were created using 14 mm drill bits. 14 mm self-tapping, variable angle screws were then placed andlocked to the plate using the torque-limited screwdriver. A lateral x-ray was obtained demonstratingappropriate position of the grafts and hardware. Hemostasis was achieved. A drain was placed along the anterior aspect of the spine, exiting through the incision. The platysma and subcutaneous tissues were closed with interrupted 3-0 Vicryl. The skinwas closed using a 4-0 Monocryl in a running, subcuticular fashion. The wound was dressed with Mastisol, Steri- Strips, sterile gauze, and a Tegaderm. A [place] J collar was applied. The patient was transferred to the hospital bed and awakened from general anesthesia. He was taken to the recovery room instable condition. There were no evident complications. Attestation: Case Date: 12/24/2021 I was present and I participated during the entire procedure (does not need to include opening and closing). HARJEET ORTA MD 12/24/2021 documented in this encounter Plan of Treatment Upcoming Encounters Date Type Specialty Care Team Description 03/27/2022 Appointment Radiology Harjeet Orta MD [facility] [place], [place] [address] (Wo octavio) 03/27/2022 Office Visit [facility] Greer Orta MD [facility] [place], [place] [address] (Wo rk) documented as of [...] Name Priority Date/Time Associated Diagnosis Comme nts HEMOGRAM Routine 12/25/2021 5:47 AM Results f or this EDT procedure are i n the results section. DIFFERENTIAL, Routine 12/25/2021 5:47 AM Results for this AUTOMATED EDT procedure are i n the results section. HC CBC,PLT & AUTO Routine 12/25/2021 5:47 AM DIFF EDT BASIC METABOLIC Routine 12/25/2021 5:47 AM Result s for this PANEL (NON-FASTING) EDT procedur e are in the results section. XR CERVICAL SPINE 2 Routine 12/24/2021 2:03 [...] disorder with ONLY;STRUCTUAL radiculopathy of mid-cervical region documented in this encounter Results (ABNORMAL) Differential, Automated (12/25/2021 5:47 AM EDT) [facility] gist Method Time Signature Neutrophils % 77.1 % [facility] Neutr Abs (ANC) 8.22 (H) 1.70 - [facility] 6.[address] [facility] x10(3)/[facility] LAB[facility] Lymphocytes % 14.5 % [facility] Lymphocytes Abs 1.6 0.9 - 3.2 [facility] x10(3)/[facility] LABORATORY Monocytes % 7.7 % [facility] Monocyte Abs 0.8 0.3 - 0.9 [facility] x10(3)/[facility] LABORATORY Eosinophils % 0.1 % [facility] Eosinophils Abs 0.0 0.0 - 0.4 [facility] x10(3)/[facility] LABORATORY Basophils % 0.1 % [facility] Basophils Abs 0.0 0.0 - 0.1 [facility] x10(3)/[facility] LABORATORY Immature Gran % 0.50 % [facility] Comment: Immature granulocytes(IG's)percentage an d absolute count will include metamyelocytes, myelocytes, and promyelo cytes. Blood smears from CBCs yielding IG's will be scanned manually for concor dananisha. If this scan disagrees with the automated IG or if promyelocytes are not ed, a manual differential will be performed. Lor Gran Abs 0.05 (H) 0.00 - 0.04 x10(3)/[facility] LABORATORY Specimen Anatomical Collection Method Collection Time Receive d Time (Source) Location / / Volume Laterality Blood 12/25/2021 5:47 AM 5:53 EDT AM EDT Resulting Agency Comment Spec In Lab Noah Gutierrez MD HEMATOLOGY ORDERABLES Performing Organization Address City/State/[place] [address] (ABNORMAL) Hemogram (12/25/2021 5:47 AM EDT) Analysis Performed At Patho logist Time Signature WBC 10.7 (H) 4.0 - 9.5 [facility] x10(3)/[facility] LABORATORY RBC 3.65 (L) 4.58 - [facility] 5.[address] [facility] x10(6)/[facility] LABORATORY Hemoglobin 10.9 (L) 13.7 - [facility] 16.5 g/dL [facility] LABORATORY Hematocrit 33.6 (L) 40.5 - [facility] 48.5 % [facility] MCV 92.1 82.9 - [facility] LABORATORY MCH 29.9 27.5 - [facility] 32.1 pg [facility] LABORATORY MCHC 32.4 32.0 - [facility] 35.7 g/dL [facility] LABORATORY Platelets 254 145 - 357 [facility] x10(3)/[facility] LABORATORY RDWSD 43.1 36.0 - [facility] 45.0 [facility] LABORATORY RDWCV 12.7 11.4 - [facility] 13.8 % [facility] LABORATORY MPV 8.9 7.6 - 12.9 [facility] LABORATORY nRBC % Auto 0.0 % [facility] LABORATORY nRBC Abs Auto 0.000 0.000 - [facility] 0.[address] [facility] x10(3)/[facility] LABORATORY Specimen Anatomical Collection Method Collection Time Receive d Time (Source) Location / / Volume Laterality Blood 12/25/2021 5:47 AM 2 5:53 EDT AM EDT Resulting Agency Comment Spec In Lab Noah Gutierrez MD HEMATOLOGY ORDERABLES Performing Organization Address City/State/[place] [address] (ABNORMAL) Basic Metabolic Panel (non-fasting) (12/25/2021 5:47 AM EDT) athologist Signature Glucose Lvl 110 65 - 199 [facility] mg/dL [facility] LABORATORY Comment: Diabetes: >=200 mg/dL plus symp toms BUN 16 10 - 20 mg/dL [facility] LABORATORY Creatinine 0.76 (L) 0.80 - 1.50 mg/dL [facility] LABORATORY Sodium 138 135 - 145 mmol/L [facility] LABORATORY Potassium 4.4 3.5 - 5.0 mmol/L [facility] LABORATORY Comment: Please note: ??Patients with WBC >100,00 0 may have falsely elevated Potassium levels. ??For accurate Potassium quantif ication in these patients send serum separator tube (gold top) for subsequent determinations. ??Contact the Clinical Chemistry Laboratory if there are any qu estions. Chloride 102 98 - 107 mmol/L [facility] LABORATORY CO2 27 22 - 31 mmol/L [facility] LABORAT[facility] Anion Gap 9 5 - 15 mmol/L [facility] LABORATORY Calcium 8.5 8.5 - 10.5 mg/dL [facility] LABORATORY Estimated GFR 116 >=60 mL/min/1.73 m?? [facility] LABORATORY Comment: This patient's estimated GFR [...] Resulting Agency Comment Spec In Lab Harjeet Orta MD CHEMISTRY ORDERABLES Performing Organization Address City/State/[place] [address] XR Cervical Spine 2 [...] who have questions please contact the health nurse care manager that requested your imaging first. ? Electronically signed by: Norberto Miller, [facility] ([phone]), at 12/24/2021 3:44 PM Narrative 12/24/2021 3:44 PM EDT EXAMINATION: XR [...] ho have questions please contact the health nurse care manager that requested your imaging first. Electronically signed by: Norberto Miller, [facility] ([phone]), at 12/24/2021 3:44 PM Harjeet Orta MD IMG DX ORDERABLES XR Cervical Spine 1 View (12/24/2021 10:41 AM EDT) Anatomical Region Laterality Modality C-spine N/A Digital Radiography Specimen (Source) Anatomical Location Collection Method / Collectio n Time Received Time / Laterality Volume Impressions 12/24/2021 1:00 PM EDT FINDINGS/IMPRESSION: The lateral view images through the C6-7 disc space. Interval performance of anterior cervical disc fusion C5-7 with anterior plate, screws and interbody bone graft. Hardware is intact with norm al cervical spine alignment. Endotracheal tube, oroesophageal tube an d anterior neck subcutaneous air are concordant with the ongoing surgery. No acute abnormality. Thank you for letting us participate in the care of this patient. ??If you are a health care provider and have any questi ons regarding this report, please contact the number below. ??For patients who have questions please contact the health nurse care manager that requested your imaging first. ? Electronically signed by: Mara krause MD, [facility] ([phone]), at 12/24/2021 1:00 PM Narrative 12/24/2021 1:00 PM EDT EXAMINATION: XR CERVICAL SPINE 1 VIEW CLINICAL HISTORY: intraoperative level c onfirmation TECHNIQUE: Portable, intraoperative, crosstable lat eral view cervical spine COMPARISON: Radiographs same day Procedure Note Mara Swanson MD - 12/24/2021Forma tting of this note might be different from the original. EXAMINATION: XR CERVICAL SPINE 1 VIEW CLINICAL HISTORY: intraoperative level c onfirmation TECHNIQUE: Portable, intraoperative, crosstable lat eral view cervical spine COMPARISON: Radiographs same day IMPRESSION FINDINGS/IMPRESSION: The lateral view images through the C6-7 disc space. Interval performance of anterior cervical disc fusion C5-7 with anterior plate, screws and interbody bone graft. Hardware is intact with norm al cervical spine alignment. Endotracheal tube, oroesophageal tube an d anterior neck subcutaneous air are concordant with the ongoing surgery. No acute abnormality. Thank you for letting us participate in the care of this patient. If you are a health care provider and have any questi ons regarding this report, please contact the number below. For patients w ho have questions please contact the health nurse care manager that requested your imaging first. Electronically signed by: Mara krause MD, [facility] ([phone]), at 12/24/2021 1:00 PM Harjeet Orta MD IMG DX ORDERABLES XR Cervical Spine 1 View (12/24/2021 8:59 AM EDT) Anatomical Region Laterality Modality C-spine N/A Digital Radiography Specimen (Source) Anatomical Location Collection Method / Collectio n Time Received Time / Laterality Volume Impressions 12/24/2021 10:14 AM EDT Limited intraoperative radiograph for the purposes of localization. Thank you for letting us participate in the care of this patient. ??If you are a health care provider and have any questi ons regarding this report, please contact the number below. ??For patients who have questions please contact the health nurse care manager that requested your imaging first. ? Electronically signed by: Norberto Mendoza, [facility] ([phone]), at 12/24/2021 10:14 AM Narrative 12/24/2021 10:14 AM EDT EXAMINATION: XR CERVICAL SPINE 1 VIEW CLINICAL HISTORY: intraoperative level c onfirmation (as entered by ordering provider in the order requisition) TECHNIQUE: Intraoperative crosstable lateral view o f cervical spine. COMPARISON: Cervical spine radiographs 07/22/2021. MR of the cervical spine 02/17/2018. FINDINGS: There is partial visualization of a temp erature probe and endotracheal tube. There are multiple tubes projecting over the posterior soft tissues of the neck and the posterior calvarium. There is a screw projecting over the C5 vertebral body. Spinal levels are seen down to C6. Procedure Note Deanna Perdue MD - 12/24/2021Formattin g of this note might be different from the original. EXAMINATION: XR CERVICAL SPINE 1 VIEW CLINICAL HISTORY: intraoperative level c onfirmation (as entered by ordering provider in the order requisition) TECHNIQUE: Intraoperative crosstable lateral view o f cervical spine. COMPARISON: Cervical spine radiographs 07/22/2021. MR of the cervical spine 02/17/2018. FINDINGS: There is partial visualization of a temp erature probe and endotracheal tube. There are multiple tubes projecting over the posterior soft tissues of the neck and the posterior calvarium. There is a screw projecting over the C5 vertebral body. Spinal levels are seen down to C6. IMPRESSION Limited intraoperative radiograph for th e purposes of localization. Thank you for letting us participate in the care of this patient. If you are a health care provider and have any questi ons regarding this report, please contact the number below. For patients w ho have questions please contact the health nurse care manager that requested your imaging first. Electronically signed by: Norberto Mendoza, [facility] ([phone]), at 12/24/2021 10:14 AM Harjeet Orta MD IMG DX ORDERABLES documented in this encounter Visit Diagnoses Diagnosis S/P cervical spinal fusion - Primary Arthrodesis status Cervical disc disorder with radiculopath y of mid-cervical region Brachial neuritis or radiculitis nos Cervical disc disorder with radiculopath y of mid-cervical region Brachial neuritis or radiculitis nos documented in this encounter Admitting Diagnoses Diagnosis S/P cervical spinal fusion Arthrodesis status documented in this encounter Administered Medications Inactive Administered Medications - up to 3 most recent administrations Medication Order MAR Action Action Date Dose Rate Site acetaminophen (Tylenol) tablet Given 12/24/2021 7:00 AM EDT 1,00 0 mg 1,000 mg 1,000 mg, Oral, ONCE, 1 dose, On Thu12/24/21 at 0700, Maximum dose of acetaminophen is 4000 mg from all sources in 24 hours. When ordered for pain, acetaminophen should be given even when other ordered pain medications are indicated. , Day of Surgery (Day of Procedure), Routine acetaminophen (Tylenol) tablet 1,000 mg Given 12/25/2021 2:11 PM EDT 1,000 mg 1,000 mg, Oral, EVERY 8 HOURS SCHEDULED, First dose on Thu12/24/21 at 1400, Until Discontinued, Maximum dose of acetaminophen is 4000 mg from all sources in 24 hours. When ordered for pain, acetaminophen should be given even when other ordered pain medications are indicated. , Routine Given 12/25/2021 5:56 AM EDT 1,000 mg Given 12/24/2021 8:30 PM EDT 1,000 mg amitriptyline (Elavil) tablet 25 mg Given 12/24/2021 8:30 PM EDT 25 mg 25 mg, Oral, NIGHTLY, First dose on Thu12/24/21 at 2100, Until Discontinued, Routine BUpivacaine-EPINEPHrine Given 12/24/2021 8:24 AM 5 mLs 19- Surgical Site (Marcaine-epiNEPHrine) 0.25 EDT %-1:200,000 injection ONCE PRN, Starting on Thu12/24/21 at 0824, Until Thu12/25/21 at 1850, Intra-Operative (Intra-Procedure), Routine ceFAZolin (Ancef) 2 g vial attach to New Bag 12/25/2021 4:23 A M EDT 2 g 200 mL/hr sodium chloride 0.9% 100 mL Mini-Bag Plus 2 g, Intravenous, EVERY 8 HOURS, 3 doses, First dose on Thu12/24/21 at 1145, Last dose on Thu12/25/21 at 0345, Administer over 30 Minutes, Adjust to 4 hours from intraoperative dose. * Beta-lactam based antibiotics (eg. Ampicillin, Cefazolin, Aztreonam) should be administered within 4 hours of the preceding intraoperative dose. * Vancomycin, Flouroquinolones, Clindamycin, Gentamicin, and Metronidazole should be administered within 8 hours of the preceding intraoperative dose., Recovery (Recovery-Hospital Unit), Indication for (Active or Suspected): Prophylaxis New Bag 12/24/2021 7:57 PM EDT 2 g 200 mL/hr New Bag 12/24/2021 12:53 PM EDT 2 g 200 mL/hr cyclobenzaprine (Flexeril) tablet 10 mg Given 12/25/2021 9:28 AM EDT 10 mg 10 mg, Oral, 3 TIMES DAILY PRN, Starting on Thu12/24/21 at 1601, Until Thu12/25/21 at 1850, Muscle spasms, Routine Given 12/24/2021 4:24 PM EDT 10 mg FLUoxetine (PROzac) capsule 40 mg Given 12/25/2021 9:27 AM EDT 40 mg 40 mg, Oral, DAILY, First dose on Thu12/24/21 at 1515, Until Discontinued, Routine Given 12/24/2021 3:56 PM EDT 40 mg gelatin adsorbable (Gelfoam) sponge Given 12/24/2021 8:50 AM EDT 1 each ONCE PRN, Starting on Thu12/24/21 at 0850, Until Thu12/25/21 at 1850, Intra-Operative (Intra-Procedure) HYDROmorphone (Dilaudid) (2 mg/mL) Given 12/24/2021 12:58 PM EDT 0.4 mg multi-dose injection solution 0.4 mg 0.4 mg, Intravenous, EVERY 10 MIN PRN, Starting on Thu12/24/21 at 1115, Until Thu12/24/21 at 1402, Pain, For Moderate to Severe Pain (6-10 out of 10), Hold for respiratory rate less than 10 per minute. Maximum dose 3 mg over one hour including administrations in the OR. If multiple pain medications are ordered, start with HYDROmorphone or morphine and use fentaNYL for breakthrough pain, PACU Recovery, Routine Given 12/24/2021 12:39 PM EDT 0.4 mg Given 12/24/2021 12:25 PM EDT 0.4 mg HYDROmorphone (Dilaudid) tablet 2 mg 2 mg, Oral, EVERY 3 HOURS PRN, Starting on Thu12/24/21 at 1558, Until Thu12/25/21 at 1850, Pain, mild pain (1-3), For mild pain (1-3). Do not exceed 6 mg in 4 hours. If pain not relieved, call provider., Routine HYDROmorphone (Dilaudid) tablet 4 mg 4 mg, Oral, EVERY 3 HOURS PRN, Starting on Thu12/24/21 at 1558, Until Thu12/25/21 at 1850, Pain, moderate pain (4-6), For moderate pain (4-6). Do not exceed 6 mg in 4 hours. If pain not relieved, call provider., Routine HYDROmorphone (Dilaudid) tablet 6 mg Given 12/24/2021 12:33 PM EDT 6 mg 6 mg, Oral, EVERY 4 HOURS PRN, Starting on Thu12/24/21 at 1120, Until Thu12/24/21 at 1541, Pain, severe pain (7-10), For severe pain (7-10). Do not exceed 6 mg in 4 hours. If pain not relieved, call provider., Routine HYDROmorphone (Dilaudid) tablet 6 mg Given 12/25/2021 9:27 AM EDT 6 mg 6 mg, Oral, EVERY 3 HOURS PRN, Starting on Thu12/24/21 at 1558, Until Thu12/25/21 at 1850, Pain, severe pain (7-10), For severe pain (7-10). Do not exceed 6 mg in 4 hours. If pain not relieved, call provider., Routine Given 12/24/2021 4:24 PM EDT 6 mg ketamine (Ketalar) (1 mg/mL) New Bag 12/25/2021 7:19 AM EDT 0. 3 mg/kg/hr 27 mL/hr in sodium chloride 0.9% 250 mL infusion 0.3 mg/kg/hr ? 89.9 kg (26.97 mL/hr, rounded to 27 mL/hr), Intravenous, CONTINUOUS, Starting on Thu12/24/21 at 1600, Until Thu12/25/21 at 0810 New Bag 12/24/2021 9:41 PM EDT 0.3 mg/kg/hr 27 mL/hr ketamine shift total and Settings verifi cation Intravenous, 2 Times Daily - Shift Total , First dose on Thu12/24/21 at 1900, Until Discontinued lidocaine (Lidoderm) 5% patch 3 patch 3 patch, Transdermal, DAILY, First dose (after last modification) on Thu12/24/21 at 1700, Until Discontinued, Apply patch(es) for 12 hours , and then remove for 12 hours., Routine lidocaine (Lidoderm) topical patch REMOV AL Transdermal, EVERY 24 HOURS, First dose (after last modification) on Thu12/25/21 at 0500, Until Discontinued, Remove lidocaine 5% patch lidocaine (pf) Continued Bag 12/24/2021 11:18 AM 1.5 mg/kg/hr 33.7 mL /hr (Xylocaine) (4 mg/mL) in EDT dextrose 5% 500 mL infusion 1.5 mg/kg/hr ? 89.9 kg (33.7125 mL/hr, rounded to 33.7 mL/hr), Intravenous, CONTINUOUS, Starting on Thu12/24/21 at 1145, Until Thu12/24/21 at 1402, PACU Recovery, Routine methadone (Dolophine) (10 mg/mL) oral li quid 58 mg 58 mg, Oral, EVERY 12 HOURS SCHEDULED (2 times per day ), First dose (after last modification) on Thu12/25/21 at 0915, Un til Discontinued, Request from pharmacy if needed Liquid methadone should be used t o avoid diversion, and a mouth check should be performed after each dose., Routine pantoprazole EC (Protonix) tablet 40 mg Given 12/25/2021 9:28 AM EDT 40 mg 40 mg, Oral, DAILY, First dose on Thu12/24/21 at 1515, Until Discontinued, DO NOT CRUSH OR OPEN, Routine Given 12/24/2021 3:15 PM EDT 40 mg polyethylene glycoL (Miralax) packet 17 g Given 12/25/2021 9:27 AM EDT 17 g 17 g, Oral, 2 TIMES DAILY, First dose on Thu12/24/21 at 2100, Until Discontinued, Routine Given 12/24/2021 9:00 PM EDT 17 g pregabalin (Lyrica) capsule 100 mg Given 12/25/2021 2:11 PM EDT 100 mg 100 mg, Oral, 3 TIMES DAILY, First dose on Thu12/24/21 at 1700, Until Discontinued, Routine Given 12/25/2021 9:27 AM EDT 100 mg Given 12/24/2021 8:30 PM EDT 100 mg senna-docusate (Pericolace) 8.6-50 mg per Given 2021 9:28 AM EDT 2 tablets tablet 2 tablet 2 tablet, Oral, 2 TIMES DAILY, First dose on Thu12/24/21 at 2100, Until Discontinued, Routine Given 12/24/2021 8:30 PM EDT 2 tablets sodium chloride 0.9 % (flush) (BD PosiFlush Given 12/25/2021 9:2 8 AM EDT 5 mLs Normal Saline 0.9) flush 5 mL 5 mL, Intravenous, 2 TIMES DAILY, First dose on Thu12/24/21 at 2100, Until Discontinued, Recovery (Recovery-Hospital Unit), Routine Given 12/24/2021 8:31 PM EDT 5 mLs sodium chloride 0.9% infusion New Bag 12/24/2021 9:39 PM EDT 1,000 mLs 100 mL/hr 1,000 mL, at 100 mL/hr, Intravenous, CONTINUOUS, Starting on Thu12/24/21 at 1145, Until Thu12/25/21 at 1850, Recovery (Recovery-Hospital Unit) New Bag 12/24/2021 12:52 PM EDT 1,000 mLs 100 mL/hr thrombin (bovine) Given 12/24/2021 8:50 AM 5,000 Units 19- Surgical Site (Thrombin-Jmi) solution EDT ONCE PRN, Starting on Thu12/24/21 at 0850, Until Thu12/25/21 at 1850, Intra-Operative (Intra-Procedure) valACYclovir (Valtrex) tablet 500 mg Given 12/25/2021 9:28 AM EDT 500 mg 500 mg, Oral, 2 TIMES DAILY, First dose on Thu12/24/21 at 2100, Until Discontinued, Routine Given 12/24/2021 8:29 PM EDT 500 mg documented in this encounter Active and Recently Administered Medications Times are shown in EDT. Scheduled Medication Order 12/23/2021 12/24/2021 12/25/2021 acetaminophen (Tylenol) tablet 1,000 mg (COMPLETED) 0700 (Given - Provider: Gabriella Dumont RN) 1,000 mg, Oral, ONCE, 1 dose, On 12/09 at 0700, Maximum dose of acetaminophen is 4000 mg from all sources in 24 hours. When ordered for pain, acetaminophen should be given even when other ordered pain medications are indicated. , Day of Surgery (Day of Procedu re), Routine acetaminophen (Tylenol) tablet 1,000 mg 1558 (Given - Provider: Sarahy Combs RN)2030 (Given - Provider: Hudson Dos Santos RN) 0556 (Given - Provider: Joyce Jones RN)1411 (Given - Provider: Bety Min RN) 1,000 mg, Oral, EVERY 8 HOURS SCHEDULED, First dose on Thu12/24/21 at 1400, Until Discontinued, Maximum dose of acetaminophen is 4000 mg from all sources in 24 hours. When ordered for pain, acetaminophe n should be given even when other ordere d pain medications are indicated. , Routine amitriptyline (Elavil) tablet 25 mg 2029 (Given - Provider: Hudson Dos Santos RN) 25 mg, Oral, NIGHTLY, First dose on Thu12/24/21 at 2100, Until Discontinued, Routine ceFAZolin (Ancef) 2 g vial attach to sod ium chloride 0.9% 100 mL Mini-Bag Plus (COMPLETED) 1253 (New Bag - Provider: Sofiya Gonsalves RN)1323 (Stopped - Provider: Hudson Dos Santos, RN)195 (New Bag - Provider: Hudson Dos Santos, RN)2026 (Stopped - Provider: Hudson Dos Santos, RN) 042 (New Bag - Provider: Joyce Jones, RNADI)0453 (Due: Stopped - Provider: Joyce Jones, RANDI) 2 g, Intravenous, EVERY 8 HOURS, 3 doses , First dose on Thu12/24/21 at 1145, Last dose on Thu12/25/21 at 0345, Administer over 30 Minutes, Adjust to 4 hours from intraoperative dose. * Beta-lactam based antibiotics (eg. Ampicillin, Cefazolin, Aztreonam) should be administered within 4 hours of the preceding intraoperative dose. * Vancomycin, Flouroquinolones, Clindamycin, Gentamicin, and Metronidazole should be administered within 8 hours o f the preceding intraoperative dose., Recovery (Recovery-Hospital Unit), Indication for (Active or Suspected): Prophylaxis FLUoxetine (PROzac) capsule 40 mg 1556 ( Given - Provider: Sarahy Combs RN) 0927 (Given - Provider: Bety wagoner RN) 40 mg, Oral, DAILY, First dose on Thu at 1515, Until Discontinued, Routine ketamine shift total and Settings verification 1 900 (Due) 0700 (Verified - Provider: Bety Min RN) Intravenous, 2 Times Daily - Shift Total , First dose on Thu12/24/21 at 1900, Until Discontinued lidocaine (Lidoderm) 5% patch 3 patch(Linked Group 1) 1700 (Not Given - Provider: Sarahy Combs RN - Reason: See comment) 1700 (Not Given - Provider: Bety Min RN - Reason: Patient/family refused) 3 patch, Transdermal, DAILY, First dose (after last modification) on Thu12/24/21 at 1700, Until Discontinued, Apply patch(es) for 12 hours, and then remove for 12 hours., Routine lidocaine (Lidoderm) topical patch REMOVAL(Linked Group 1) 0500 (Patch Not Removed (add comment) - Provider: Joyce Jones RN - Comment: No patches on pt) Transdermal, EVERY 24 HOURS, First dose (after last modification) on Thu12/25/21 at 0500, Until Discontinued, Remove lidocaine 5% patch methadone (Dolophine) (10 mg/mL) oral liquid 58 mg 0915 (Not Given - Provider: Bety Min RN - Reason: See comment - Comment: Patient informed RN he took half his home dose from his methadone he had with his belongings. Patient said MDs said he 58 mg, Oral, EVERY 12 HOURS SCHEDULED (2 times per day), First dose (after last modification) on Thu12/25/21 at 0915, Until Discontinued, Request from pharmacy if needed Liquid methadone should be used should take his personal methadone. Personal methadone sealed and placed in locked drawer, will return at discharge) to avoid diversion, and a mouth check sh ould be performed after each dose., Routine pantoprazole EC (Protonix) tablet 40 mg 151 (Given - Provider: Sarahy Combs RN) 0928 (Given - Provider: Bety wagoner, RANDI) 40 mg, Oral, DAILY, First dose on Thu at 1515, Until Discontinued, DO NOT CRUSH OR OPEN, Routine polyethylene glycoL (Miralax) packet 17 g 2099 (Given - Provider: Hudson Dos Santos RN) 09 (Given - Provider: Bety wagoner, RANDI) 17 g, Oral, 2 TIMES DAILY, First dose on Thu12/24/21 at 2100, Until Discontinued, Routine pregabalin (Lyrica) capsule 100 mg 162 (Given - Provider: Sarahy Combs RN)2029 (Given - Provider: Hudson Dos Santos RN) 09 (Given - Provider: Bety Min RN)141 (Given - Provider: Bety Min RN) 100 mg, Oral, 3 TIMES DAILY, First dose on Thu12/24/21 at 1700, Until Discontinued, Routine senna-docusate (Pericolace) 8.6-50 mg per tablet 2 tablet 2029 (Given - Provider: Hudson Dos Santos RN) 09 (Given - Provider: Bety wagoner, RANDI) 2 tablet, Oral, 2 TIMES DAILY, First dos e on Thu12/24/21 at 2100, Until Discontinued, Routine sodium chloride 0.9 % (flush) (BD PosiFlush Normal Saline 0. 9) flush 5 mL 2030 (Given - Provider: Hudson Dos Santos RN) 927 (Given - Provider: Bety Min RN) 5 mL, Intravenous, 2 TIMES DAILY, First dose on Thu12/24/21 at 2100, Until Discontinued, Recovery (Recovery-Hospital Unit), Routine valACYclovir (Valtrex) tablet 500 mg (Given - Provider: Hudson Dos Santos RN) 927 (Given - Provider: Bety wagoner, RANDI) 500 mg, Oral, 2 TIMES DAILY, First dose on Thu12/24/21 at 2100, Until Discontinued, Routine Continuous Medication Order 12/23/2021 12/24/2021 12/25/2021 ketamine (Ketalar) (1 mg/mL) in sodium chloride 0.9% 2 50 mL infusion (CANCELED) 1600 (Not Given - Provider: Hudson arellano RN - Reason: See comment - Comment: Prior to start of shift.)2141 (New Bag - Provider: Joyce Jones, RANDI) 0719 (New Bag - Provider: Joyce Jones, RANDI)0810 (Stopped - Provider: Nadine Sow RN - Comment: by APS) 0.3 mg/kg/hr ? 89.9 kg (26.97 mL/hr, rounded to 27 mL/hr), Intravenous, CONTINUOUS, Starting on Thu12/24/21 at 1600, Until Thu12/25/21 at 0810 lidocaine (pf) (Xylocaine) (4 mg/mL) in dextrose 5% 500 mL i nfusion (CANCELED) 1118 (Continued Bag - Provider: Tiny Bell, RANDI)1402 (Not Given - Provider: Hudson Dos Santos RN - Reason: See comment - Comment: Prior to start of shift.) 1.5 mg/kg/hr ? 89.9 kg (33.7125 mL/hr, rounded to 33.7 mL/hr), Intravenous, CONTINUOUS, Starting on Thu12/24/21 at 1145, Until Thu12/24/21 at 1402, PACU Recovery, Routine sodium chloride 0.9% infusion 1252 (New Bag - Provider: Violeta Gonsalves, RN)2139 (New Bag - Provider: Joyce Jones RN) 1850 (Due: Stopped) 1,000 mL, at 100 mL/hr, Intravenous, CON TINUOUS, Starting on Thu12/24/21 at 1145, Until Thu12/25/21 at 1850, Recovery (Recovery-Hospital Unit) PRN Medication Order 12/23/2021 12/24/2021 12/25/2021 albuteroL (Proventil) nebulizer solution 2.5 mg 2.5 mg, Nebulization, EVERY 6 HOURS PRN, Starting on Thu12/24/21 at 1419, Until Thu12/25/21 at 1850, Wheezing, Routine BUpivacaine-EPINEPHrine (Marcaine-epiNEP Hrine) 0.25 %-1:200,000 injection (CANCELED) 0824 (Given - Provider: Harjeet Orta MD) ONCE PRN, Starting on Thu12/24/21 at 082 4, Until Thu12/25/21 at 1850, Intra- Operative (Intra-Procedure), Routine cyclobenzaprine (Flexeril) tablet 10 mg 1624 (Given - Provider: Sarahy Combs, RANDI) 0928 (Given - Provider: Bety wagoner RN) 10 mg, Oral, 3 TIMES DAILY PRN, Starting on Thu12/24/21 at 1601, Until Thu12/25/21 at 1850, Muscle spasms, Routine gelatin adsorbable (Gelfoam) sponge (CANCELED) 0850 (Given - Provider: Harjeet Orta MD - Comment: Soaked in thrombin 5,000u) ONCE PRN, Starting on Thu12/24/21 at 085 0, Until Thu12/25/21 at 1850, Intra- Operative (Intra-Procedure) HYDROmorphone (Dilaudid) (2 mg/mL) multi -dose injection solution 0.4 mg (CANCELED) 1225 (Given - Provider: Cece Gonsalves RN)1239 (Given - Provider: iVoleta Gonsalves RN)1258 (Given - Provider: Violeta Gonsalves RN) 0.4 mg, Intravenous, EVERY 10 MIN PRN, S tarting on Thu12/24/21 at 1115, Until Thu12/24/21 at 1402, Pain, For Moderate to Severe Pain (6-10 out of 10), Hold for respiratory rate less than 10 per minute. Maximum dose 3 mg over one hour includin g administrations in the OR. If multiple pain medications are ordered, start with HYDROmorphone or morphine and use fentaNYL for breakthrough pain, PACU Recovery, Routine HYDROmorphone (Dilaudid) tablet 2 mg(Linked Group 2) 1624 (See Alternative - Provider: Sarahy Combs RN) 0927 (See Alternative - Provider: Iliana Min RN) 2 mg, Oral, EVERY 3 HOURS PRN, Starting on Thu12/24/21 at 1558, Until Thu12/25/21 at 1850, Pain, mild pain (1-3), For mild pain (1-3). Do not exceed 6 mg in 4 hours. If pain not relieved, call provider., Routine HYDROmorphone (Dilaudid) tablet 4 mg(Linked Group 2) 1624 (See Alternative - Provider: Sarahy Combs RN) 0927 (See Alternative - Provider: Iliana Min RN) 4 mg, Oral, EVERY 3 HOURS PRN, Starting on Thu12/24/21 at 1558, Until Thu12/25/21 at 1850, Pain, moderate pain (4-6), For moderate pain (4-6). Do not exceed 6 mg in 4 hours. If pain not relieved, call provider., Routine HYDROmorphone (Dilaudid) tablet 6 mg (CANCELED) 1233 (Given - Provider: Violeta Gonsalves RN) 6 mg, Oral, EVERY 4 HOURS PRN, Starting on Thu12/24/21 at 1120, Until Thu12/24/21 at 1541, Pain, severe pain (7-10), For severe pain (7-10). Do not exceed 6 mg in 4 hours. If pain not relieved, call provider., Routine HYDROmorphone (Dilaudid) tablet 6 mg(Linked Group 2) 1624 (Given - Provider: Sarahy Combs, RANDI) 0927 (Given - Provider: Bety wagoner RN) 6 mg, Oral, EVERY 3 HOURS PRN, Starting on Thu12/24/21 at 1558, Until Thu12/25/21 at 1850, Pain, severe pain (7-10), For severe pain (7-10). Do not exceed 6 mg in 4 hours. If pain not relieved, call provider., Routine ondansetron (pf) (Zofran) (2 mg/mL) injection 4 mg 4 mg, Intravenous, EVERY 8 HOURS PRN, St arting on Thu12/24/21 at 1419, Until Thu12/25/21 at 1850, Nausea, If multiple antiemetics are ordered, use ondansetron first, prochlorperazine second, metoclopramide third. sodium chloride 0.9 % (flush) (BD PosiFlush Normal Saline 0.9) f lush 5-20 mL 5-20 mL, Intravenous, EVERY 1 MIN PRN, S tarting on Thu12/24/21 at 1419, Until Thu12/25/21 at 1850, flush, Flush pertains to all indwelling lines. Flush per protocol found in the job aid using the link p rovided on this medication record., Recovery ([facility]), Routine thrombin (bovine) (Thrombin-Jmi) solution (CANCELED) 0850 (Given - Provider: Harjeet Orta MD - Comment: used with gelfoam) ONCE PRN, Starting on Thu12/24/21 at 085 0, Until Thu12/25/21 at 1850, Intra- Operative (Intra-Procedure) Linked Groups Order Group 1: lidocaine (Lidoderm) 5% patch 3 patchJump to med 3 patch, Transdermal, DAILY, First dose (after last modification) on Thu12/24/21 at 1700, Until Discontinued
Apply patch(es) for 12 hours, and then remove for 12 hours.
Routine And lidocaine (Lidoderm) topical patch REMOVALJump to med Transdermal, EVERY 24 HOURS, First dose (after last modification) on Thu12/25/21 at 0500, Until Discontinued
Remove lidocaine 5% patch
Group 2: HYDROmorphone (Dilaudid) tablet 2 mgJump to med 2 mg, Oral, EVERY 3 HOURS PRN, Starting on Thu12/24/21 at 1558, Until Thu12/25/21 at 1850, Pain, mild pain (1-3)
For mild pain (1-3). Do not exceed 6 mg in 4 hours. If pain not relieved, call provider.
Routine Or HYDROmorphone (Dilaudid) tablet 4 mgJump to med 4 mg, Oral, EVERY 3 HOURS PRN, Starting on Thu12/24/21 at 1558, Until Thu12/25/21 at 1850, Pain, moderate pain (4-6)
For moderate pain (4-6). Do not exceed 6 mg in 4 hours. If pain not relieved, call provider.
Routine Or HYDROmorphone (Dilaudid) tablet 6 mgJump to med 6 mg, Oral, EVERY 3 HOURS PRN, Starting on Thu12/24/21 at 1558, Until Thu12/25/21 at 1850, Pain, severe pain (7-10)
For severe pain (7-10). Do not exceed 6 mg in 4 hours. If pain not relieved, call provider.
Routine documented in this encounter Care Teams Automotive Drivability Technician Relationship Specialty Start Date End Date Glendy Cohen MD PCP - General 08/12/12 [address] [place] [address] documented as of this encounter
--- OUTSIDE RECORDS SUMMARY | 2022-01-31 15:45 | XMS_ITS | Encounter Summary ---
:1980 Author Organization [facility] [place] [address] Care Team Providers Name Role Phone Glendy Cohen MD Primary Care Provider Encounter Details Date Type Department Care Team Description 01/20/2022 Telephone [facility] [place] [place] [phone] Social History Tobacco Use Types Packs/Day [...] this encounter Miscellaneous Notes Telephone Encounter - Jayda Dela Cruz RN - 01/20/2022 10:06 AM EDT Received call from patient reporting that 1 week post op he began to have problems with his right shoulder. Patient is s/p 12/24/2021 C5-C7 ACDF. Pre op he had neck pain radiating to right greater than left arm. He is not having any difficulty with his left arm/shoulder. Initially post op his right shoulder was fine then about 1 week post op he developed pain in the front and top of his right shoulderand he has not been able to lift his right arm. He reports difficulty getting his right hand to his mouth. There is no pain in the bicep or down his arm. He reports that his wound is well healed and his neck is better and he is able to lift his head and look out forward now. He is scheduled for his post op visit with Dr. Castorena on 01/23/2022. Above discussed with Dr. Castorena, he will evaluate at upcoming appointment. Patient was contacted and informed. documented in this encounter Plan of Treatment Upcoming Encounters Date Type Specialty Care Team Description 03/27/2022 Appointment Radiology Harjeet Castorena MD [facility] [address] [facility] [place] [address] (Wo rk) 03/27/2022 Office Visit [facility] Greer Castorena MD [facility] [place] [address] (Wo rk) documented as of [...] on filedocumented in this encounter Care Teams Forex Trader Relationship Specialty Start Date End Date Glendy Cohen MD PCP - General 08/12/12 [address] [place] [address] documented as of this encounter
--- OUTSIDE RECORDS SUMMARY | 2022-01-31 15:45 | XMS_ITS | Encounter Summary ---
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 Glendy Cohen MD [facility] On[facility] [address] [place], [place] [address] [place] [phone] Phone: Fax: Referral ID Status Reason Start Date Expiration Date Visits V isits Requested Authorized [id number] Closed Consult, Test 09/03/2021 09/03/2022 1 1 & Treat PCP Updated and/or Approved Encounter Details Date Type Department Care Team Description 09/03/2021 Transcribe Orders eDH Incoming Referra ls Glendy Cohen MD Clot [phone] [address] [place] [address] (Wo rk) Social History Tobacco Use Types Packs/Day Years Used Date Current Every Day Smoker Cigarettes 0.5 11 Smokeless Tobacco: Never Used Comments: avs information given Alcohol Use Standard Drinks/Week Comments Yes 3 (1 standard drink = 0.6 oz pure alcoho l) 24oz [place] hard lemonade Alcohol Habits Answer Date Recorded How often do you have a drink containing Not asked alcohol? How many drinks containing alcohol do you have Not asked on a typical day when you are drinking? How often do you have six or more drinks on Not asked one occasion? Comment: 24oz Sima hard lemonade 10/30/2017 Sex Assigned at Date Recorded Not on file documented as of this encounter Plan of Treatment Upcoming Encounters Date Type Specialty Care Team Description 03/27/2022 Appointment Radiology Harjeet Castorena MD [facility] [address] [facility] [place] [address] (Wo rk) 03/27/2022 Office Visit [facility] Greer Castorena MD [facility] [place], [place] [address] (Wo rk) Scheduled Referrals Name Type Priority Associated Order Schedule Diagnoses Referral to Outpatient Referral Routine Clot Ordered: Hemophilia and 09/03/2021 Thrombosis Center documented as of this encounter Goals Goal [...] as of this encounter Visit Diagnoses Diagnosis Clot Embolism and thrombosis of unspecified s ite documented in this encounter Care Teams Financial Management Relationship Specialty Start Date End Date Glendy Cohen MD PCP - General 08/12/12 [address] [place] [address] documented as of this encounter
--- OUTSIDE RECORDS SUMMARY | 2022-01-31 15:45 | XMS_ITS | Encounter Summary ---
:1980 Author Organization [facility] [place] [address] Care Team Providers Name Role Phone Glendy Cohen MD Primary Care Provider Encounter Details Date Type Department Care Team Description 09/02/2021 Telephone Pain and Spine Austyn krause at [facility] [place] [phone] Social History Tobacco Use Types Packs/Day Years Used Date Current Every Day Smoker Cigarettes 0.5 11 Smokeless Tobacco: Never Used Comments: avs information given Alcohol Use Standard Drinks/Week Comments Yes 3 (1 standard drink = 0.6 oz pure alcoho l) 24oz Sima hard lemonade Alcohol Habits Answer Date Recorded How often do you have a drink containing Not asked alcohol? How many drinks containing alcohol do you have Not asked on a typical day when you are drinking? How often do you have six or more drinks on Not asked one occasion? Comment: 24oz [place] hard lemonade 10/30/2017 Sex Assigned at Date Recorded Not on file documented as of this encounter Miscellaneous Notes Telephone Encounter - Michelle Gonzalez - 09/02/2021 10:00 AM EDT Please schedule from referral. Left message to schedule appointment for Pre-op pain management. Heldtime 09/20/21 [phone] w/ E [employer] SOLUTION ARCHITECT, and [phone] with JEG. documented in this encounter Plan of Treatment Upcoming Encounters Date Type Specialty Care Team Description 03/27/2022 Appointment Radiology Harjeet Castorena MD [facility] [place] [id number] (Wo rk) 03/27/2022 Office Visit [facility] Greer Castorena MD [facility] [place], [place] [address] (Wo rk) documented as of [...] on filedocumented in this encounter Care Teams Fisher Hand Line Relationship Specialty Start Date End Date Glendy Cohen MD PCP - General 08/12/12 [address] [place] [address] documented as of this encounter
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
--- OUTSIDE RECORDS SUMMARY | 2022-01-31 15:45 | XMS_ITS | Encounter Summary ---
:1980 Author Organization [facility] [place] [address] Care Team Providers Name Role Phone Glendy Cohen MD Primary Care Provider Reason for Visit Auth/Cert Specialty Diagnoses / Procedures Referred By Contact Refer red To Contact Diagnoses Cervical radiculopathy Cervical radiculopathy Harjeet Orta MD [facility] Procedures PRO ARTHRODESIS, ANT INTERBODY,DECOMPRESSION; CERVICAL BELOW C2 PRO ARTHRD ANT INTERDY CERVCL BELW C2 EA ADDL NTRSPC PRO ANTERIOR INSTRUMENTATION 2-3 VERTEBRAL SEGMENTS PRO ALLOGRAFT FOR SPINE SURGERY ONLY STRUCTURAL [facility] ARTHROD[facility]OU[facility], ANT INTERBODY,D ECOMPRESSION; CERVICAL BELOW C2 (WRVU 25) ARTHRODESIS ANT INTERBDY CERVCL BELOW C2 EA ADDL INTRSPACE (WRVU 6.5) ANT. SPINAL INSTRUMENTATION, 2-3 VERTEBRA, SEGMENTED (WRVU 11.94) SPINE CENTER ALLOGRAFT FOR SPINE SURGERY ONLY; STRUCTUAL (WRVU 1.81) MODIFIER GLOBUS PROVIDENCE MODIFIER CORNERSTONE MODIFIER C5 MODIFIER C6 MODIFIER C7 [place] [address] Referral ID Status Reason Start Date Expiration Date Visits Requ ested Visits Authorized [id number] 1 1 Encounter Details Date Type Department Care Team Description 12/24/2021 - Hospital Encounter 5 Harjeet Vazquez Cervical disc 12/25/2021 Crys Thornton MD disorder with Hospital [facility] MEDICAL radiculopathy [facility] CENTER mid-cervical region [facility] [place] [phone] Social History Tobacco Use Types Packs/Day Years [...] Sign Reading Time Taken Comments Blood Pressure 119/66 12/25/2021 3:14 PM EDT Pulse 71 12/25/2021 3:14 PM EDT Temperature 36.6 ??C (97.9 ??F) [...] Enrique Mcbride Patient Age: 41 y.o. Language: Kuwaiti Race: White Ethnicity: Not nor Admit date: 12/24/2021 Discharge date and time: 12/25/2021 Attending Physician: Harjeet Orta MD Discharge Physician: Harjeet Orta MD Follow-up Recommendations for Providers: 1. Will restart Eliquis on 12/28/21, and take for 30 days as recommended by PCP. 2. Will need to f/u with the [facility] in [facility] for ongoing Methadone management. See discharge instructions for additional details. Future Appointments Date Time Provider Department Center 01/22/2022 11:00 AM Angela Meyre MD [facility] HEM ONC [facility] 01/23/2022 3:00 PM [facility] DX ROOM 2 MH Xray [facility] Rad 01/23/2022 3:40 PM Harjeet Orta MD [facility] Pain Sp [facility] 02/10/2022 2:30 PM Angela Meyer MD [facility] HEM ONC [facility] Inpatient Provider Contact Information: Harjeet Orta MD Spine Center: [phone] After hours and weekends, call [facility] Manufacturing Teacher, , and have the Orthopedic resident paged. [...] 12/28/21. He will see Dr. Meyer with [facility] Hematology on 01/22/22, for further evaluation. The [...] MD 12/25/2021 Acute Pain Service APS Pager: [phone] I have seen and examined the patient. [...] patients who have questions please contactthe health career guidance counselor that requested your imaging first. Cervical Spine 1 View Result Date: 12/24/2021 [...] who have questions please contact the health career guidance counselor that requested your imaging first. Electronically signed by: Deanna Perdue MD, [facility] [place] ([phone]), at 12/24/2021 10:14 AM XR Cervical Spine [...] who have questions please contact the health career guidance counselor that requested your imaging first. DOC: TELEMETRY STRIPS Result Date: 12/24/2021 Ordered [...] them. 3. You should also take an twdr-fbb-prvexmt stool softener or laxative, such as Lelia-colace [...] contact the Spine Center Prescription Line at [phone]. PRESCRIPTION RENEWAL REQUESTS CAN TAKE UP TO [...] Dilaudid. You will need to f/u with [facility] in [facility] for ongoing Methadone management. The Acute Pain [...] and gum asnicotine products can impair healing. [place] Collar Instructions: 1. You are being [...] against the skin, please call the [facility] Nursing Line at the number below. 5. [...] days after surgery, please call the [facility] at the number below. 3. After the [...] has completely healed. PLEASE CALL US AT [phone] TO SPEAK WITH A SPINE CENTER NURSE [...] Numbers: Clinical issues, nurse questions, medication renewals: [phone] Orta: [phone] Evenings after 5pm and weekends you may contact the Orthopaedic resident information systems analyst: [phone], ask the gang drill operator to page the Orthopaedic resident Follow Up Appointments: 1. You will have follow-up appointments at [facility] as indicated in the ???Future Appointments and Orders?? section of your discharge summary. If X-rays have been ordered for you prior to this appointmentyou will need to report to the Radiology department, desk 3T, 1 hour prior to your spine center appointment. Future Appointments Date Time Provider Department Center 01/22/2022 11:00 AM Angela Meyer MD [facility] HEM ONC [facility] 01/23/2022 3:00 PM [facility] DX ROOM 2 MH Xray [facility] Rad 01/23/2022 3:40 PM Harjeet Orta MD [facility] Pain Sp [facility] 02/10/2022 2:30 PM Angela Meyer MD [facility] HEM ONC [facility] General Instructions None Future Appointments and Orders Future Appointments and Orders Future Appointments Provider Department Dept Phone 01/22/2022 11:00 AM Angela Meyer MD Hematology and Oncology at [facility] Arrive at: Liaison Inspection Laboratory Assistant Area 3K [phone] 01/23/2022 3:00 PM [facility] DX ROOM 2 XRay at [facility] Arrive at: Liaison Inspection Laboratory Assistant Area 3T [phone] Please go to Liaison Inspection Laboratory Assistant Area 3T ([place] Location). 01/23/2022 3:40 PM Harjeet Orta MD Pain and Spine Center at [facility] Arrive at: Liaison Inspection Laboratory Assistant Area 3D [phone] 02/10/2022 2:30 PM Angela Meyer MD Hematology and Oncology at [facility] Arrive at: Liaison Inspection Laboratory Assistant Area 3K [phone] Primary Care Provider: Glendy Cohen MD [phone] Discharge References/Attachments Direct Oral Anticoagulants: Non-Vitamin K Antagonist (Kuwaiti) documented in this encounter Discharge Instructions Patient InstructionsKeyla Gomez, HOUSETRAILER SERVICER - 12/24/2021 11:10 AM EDT Spine Surgery [...] them. 3. You should also take an bgyr-iis-nkjlbgp stool softener or laxative, such as Lelia-colace [...] contact the Spine Center Prescription Line at [phone]. PRESCRIPTION RENEWAL REQUESTS CAN TAKE UP TO [...] You have an appointment with Dr. Meyer ([facility] Hematology) on 01/22/22, for further evaluation. 6. Continue Lyrica 100 mg by mouth twice daily. 7. You have been prescribed a small amount of Dilaudid. You will need to f/u with [facility] in [facility] for ongoing Methadone management. The Acute Pain [...] and gum asnicotine products can impair healing. [place] Collar Instructions: 1. You are being [...] against the skin, please call the [facility] Nursing Line at the number below. 5. [...] days after surgery, please call the [facility] at the number below. 3. After the [...] has completely healed. PLEASE CALL US AT [phone] TO SPEAK WITH A SPINE CENTER NURSE [...] Numbers: Clinical issues, nurse questions, medication renewals: [phone] Orta: [phone] Evenings after 5pm and weekends you may contact the Orthopaedic resident information systems analyst: [phone], ask the gang drill operator to page the Orthopaedic resident Follow Up Appointments: 1. You will have follow-up appointments at [facility] as indicated in the ???Future Appointments and Orders?? section of your discharge summary. If X-rays have been ordered for you prior to this appointmentyou will need to report to the Radiology department, desk 3T, 1 hour prior to your spine center appointment. Future Appointments Date Time Provider Department Center 01/22/2022 11:00 AM Angela Meyer MD [facility] HEM ONC [facility] 01/23/2022 3:00 PM [facility] DX ROOM 2 Xray [facility] Rad 01/23/2022 3:40 PM Harjeet Orta MD [facility] Pain Sp [facility] 02/10/2022 2:30 PM Angela Meyer MD [facility] HEM ONC [facility] AttachmentsThe following attachments cannot be sent through Care Everywhere. Direct Oral Anticoagulants: Non-Vitamin K Antagonist ([place]i)documented in this encounter Medications at Time of [...] well. Keyla Gomez APRN Inpatient Orthopaedics Pager [phone] Juany Medrano, PT - 12/25/2021 1:59 PM [...] 1.81) performed by Harjeet Orta MD at [facility] MAIN OR ??? PRO ANTERIOR INSTRUMENTATION 2-3 VERTEBRAL SEGMENTS Bilateral 12/24/2021 ANT. SPINAL INSTRUMENTATION, 2-3 VERTEBRA, SEGMENTED (WRVU 11.94) performed by Harjeet Orta MD at [facility] MAIN OR ??? PRO ARTHRD ANT INTERDY CERVCL BELW C2 EA ADDL NTRSPC Bilateral 12/24/2021 ARTHRODESIS ANT INTERBDY CERVCL BELOW C2 EA ADDL INTRSPACE (WRVU 6.5) performed by Harjeet Orta MD at [facility] MAIN OR ??? PRO ARTHRODESIS, ANT INTERBODY,DECOMPRESSION; CERVICAL BELOW C2 Bilateral 12/24/2021 ARTHRODESIS, ANT INTERBODY,DECOMPRESSION; CERVICAL BELOW C2 (WRVU 25) performed by Harjeet Orta MD at [facility] MAIN OR ??? PRO CLOSED TREATMENT NASAL FRACTURE W MANIPULATION W STABILIZATION N/A 10/30/2017 NASAL BONE FX CLOSED REDUCTION WITH STABILIZATION (WRVU 1.88) performed by Stevie García MD at [facility] MAIN OR Social History: Home set-up: Lives [...] in this evaluation. Time IN / OUT: 5792-4651 Total Minutes, Physical Therapy: 10 (low complexity eval) Juany Medrano, PT Pager: [phone] Physical Therapy Inpatient Rehabilitation Department Ty Alfaro [...] MD 12/25/2021 Acute Pain Service APS Pager: [phone] I have seen and examined the patient. [...] Center 01/22/2022 11:00 AM Angela Meyer MD [facility] HEM ONC [facility] 01/23/2022 3:00 PM [facility] DX ROOM 2 Xray [facility] Rad 01/23/2022 3:40 PM Harjeet Orta MD [facility] Pain Sp [facility] 02/10/2022 2:30 PM Angela Meyer MD [facility] HEM ONC [facility] Spine Attending I have seen and examined [...] Center 01/22/2022 11:00 AM Angela Meyer MD [facility] HEM ONC [facility] 01/23/2022 3:00 PM [facility] DX ROOM 2 MH Xray [facility] Rad 01/23/2022 3:40 PM Harjeet Orta MD [facility] Pain Sp [facility] 02/10/2022 2:30 PM Angela Meyer MD [facility] HEM ONC [facility] Violeta Gonsalves RN - 12/24/2021 12:29 PM EDT 1145: Report received from RANDI Clark. Care assumed. Vital signs stable. Oral airway in place. Alarmsaudible and set appropriately. Report received from surgical service and anesthesia. Anterior neck incision dressing clean, dry, intact. CAPO drain draining serosanguinous drainage. Patient in no apparent distress. 1215: Oral airway removed. [place] collar removed due to discomfort. 1330: [...] care provider on file: Glendy Cohen MD [phone] [facility] [place], [place] - [address] [facility] [address] [facility] [address] [facility] [place], [place] [address] [facility] [address] [id number] - [place], [place] [address] [facility] [address] [facility] [address] [facility] [address] [facility] [address] [facility] [address] [id number] [place], [place] - [address] [address] Advance Care Planning: Attempt Cardiopulmonary Resuscitation - Inpatient <no information> - Current Functional Ability: Functional Status Prior to Admission: Independent Home Environment: . . Accessibility Concerns: . Current DME: [facility] [address] [facility] [address] Social & Family Supports: All names listed below confirmed with patient as current and correct Extended Emergency Contact Information Primary Emergency Contact: Darlin [facility] [employer] Relation: Significant Other Secondary [...] via RCT when medically ready. Registered Nurse Farm Butcher / Educational Technologist will continue to follow patient???s progress and remain available if situation changes for coordination of care, psychosocial support and/or discharge planning. Office of Care Management David Barksdale RN, BSN Case Management [phone] Consult Note - Ty Alfaro MD - 12/24/2021 3:13 PM EDT Acute Pain Service Consultation Pt Age: 41 y.o. Date of Consultation: 12/24/2021 Consult Service: Orthopaedics Place of Service: [facility] Responsible Attending: Harjeet Orta MD Housestaff/Associate [...] 1.88) performed by Stevie García MD at [facility] MAIN OR ADR/Allergies: Allergies Allergen Reactions ??? [...] 6 mg, 6 mg, Oral, Q4H PRN, Naoh Gutierrez MD, 6 mg at 12/24/21 1233 [...] patient. Reynaldo Giron MD 12/24/2021 APS Pager [phone] I have seen and examined the patient. I have reviewed Dr. Giron's note and agree with the findings, assessment and plan. Brief Op Note - Harjeet Orta MD - 12/24/2021 11:40 AM EDT Brief Operative Note Patient Name: Jose Enrique Mcbride : [id number] MR#: [id number] Case Date: 12/24/2021 Surgeon: Surgeon(s) and Role: * Harjeet Orta MD - Primary * Christiano Botello MD - Fellow * Noah Gutierrez MD - Resident Preoperative diagnosis: Cervical radiculopathy Postoperative diagnosis: Cervical radiculopathy Procedure: C5-C7 ACDF with anterior plate and structural allografts (78709, 19279, 76130, 79941 x 2) Anesthesia: General Findings: There was [...] Orta MD - 12/24/2021 8:24 AM EDT [facility] Operative Note Patient Name: Jose Enrique Mcbride : [id number] MR#: [id number] Case Date: 12/24/2021 Surgeon: Surgeon(s) and Role: * Harjeet Orta MD - Primary * Noah Gutierrez MD - Resident Preoperative diagnosis: Cervical radiculopathy Postoperative diagnosis: Cervical radiculopathy Procedure: 1. C5-C7 anterior cervical discectomy and fusion 2. Anterior cervical plating C5-C7 3. Application structural allograft C5-C6 and C6-C7 Implants: Globus Iosco Anesthesia: General Operative findings: There was severe [...] along the anterior aspect of the spine. Editing Computer Publisher holes were created using 14 mm drill [...] Strips, sterile gauze, and a Tegaderm. A [place] collar was applied. The patient was [...] Description 03/27/2022 Appointment Radiology Harjeet Orta MD [facility] [place], [place] [address] (Wo octavio) 03/27/2022 Office Visit Pain and Spine Center Greer Orta MD [facility] [place], [place] [address] (Wo rk) documented as of [...] (ABNORMAL) Differential, Automated (12/25/2021 5:47 AM EDT) [facility] gist Method Time Signature Neutrophils % 77.1 % [facility] Neutr Abs (ANC) 8.22 (H) 1.70 - [facility] 6.10 [facility] x10(3)/[facility] LABORATORY Lymphocytes % 14.5 % [facility] Lymphocytes Abs 1.6 0.9 - 3.2 [facility] x10(3)/[facility] LABORATORY Monocytes % 7.7 % [facility] Monocyte Abs 0.8 0.3 - 0.9 [facility] x10(3)/[facility] LABORATORY Eosinophils % 0.1 % [facility] Eosinophils Abs 0.0 0.0 - 0.4 [facility] x10(3)/[facility] LABORATORY Basophils % 0.1 % [facility] Basophils Abs 0.0 0.0 - 0.1 [facility] x10(3)/[facility] LABORATORY Immature Gran % 0.50 % [facility] Comment: Immature granulocytes(IG's)percentage an d absolute count will include metamyelocytes, myelocytes, and promyelo cytes. Blood smears from CBCs yielding IG's will be scanned manually for concor dananisha. If this scan disagrees with the automated IG or if promyelocytes are not ed, a manual differential will be performed. Lor Gran Abs 0.05 (H) 0.00 - 0.04 x10(3)/[facility] LABORATORY Specimen Anatomical Collection Method Collection Time Receive d Time (Source) Location / / Volume Laterality Blood 12/25/2021 5:47 AM 5:53 EDT AM EDT Resulting Agency Comment Spec In Lab Noah Gutierrez MD HEMATOLOGY ORDERABLES Performing Organization Address City/State/[place] [address] (ABNORMAL) Hemogram (12/25/2021 5:47 AM EDT) Analysis Performed At Patho logist Time Signature WBC 10.7 (H) 4.0 - 9.5 [facility] x10(3)/[facility] LABORATORY RBC 3.65 (L) 4.58 - [facility] 5.54 [facility] x10(6)/[facility] LABORATORY Hemoglobin 10.9 (L) 13.7 - [facility] 16.5 g/dL [facility] Hematocrit 33.6 (L) 40.5 - [facility] 48.5 % [facility] MCV 92.1 82.9 - [facility].1 [facility] LAB[facility] MCH 29.9 27.5 - [facility] 32.1 pg [facility] MCHC 32.4 32.0 - [facility] 35.7 g/dL [facility] Platelets 254 145 - 357 [facility] x10(3)/[facility] LABORATORY RDWSD 43.1 36.0 - [facility] 45.0 [facility] LABORATORY RDWCV 12.7 11.4 - [facility] 13.8 % [facility] MPV 8.9 7.6 - 12.9 [facility] LABORATORY nRBC % Auto 0.0 % [facility] nRBC Abs Auto 0.000 0.000 - [facility] 0.000 [facility] x10(3)/[facility] LABORATORY Specimen Anatomical Collection Method Collection Time Receive d Time (Source) Location / / Volume Laterality Blood 12/25/2021 5:47 AM 2 5:53 EDT AM EDT Resulting Agency Comment Spec In Lab Noah Gutierrez MD HEMATOLOGY ORDERABLES Performing Organization Address City/State/[place] [address] (ABNORMAL) Basic Metabolic Panel (non-fasting) (12/25/2021 5:47 AM EDT) athologist Signature Glucose Lvl 110 65 - 199 [facility] mg/dL [facility] Comment: Diabetes: >=200 mg/dL plus symp toms BUN 16 10 - 20 mg/dL [facility] Creatinine 0.76 (L) 0.80 - 1.50 mg/dL [facility] Sodium 138 135 - 145 mmol/L [facility] Potassium 4.4 3.5 - 5.0 mmol/L [facility] Comment: Please note: ??Patients with WBC >100,00 0 may have falsely elevated Potassium levels. ??For accurate Potassium quantif ication in these patients send serum separator tube (gold top) for subsequent determinations. ??Contact the Clinical Chemistry Laboratory if there are any qu estions. Chloride 102 98 - 107 mmol/L [facility] CO2 27 22 - 31 mmol/L [facility] Anion Gap 9 5 - 15 mmol/L [facility] Calcium 8.5 8.5 - 10.5 mg/dL [facility] Estimated GFR 116 >=60 mL/min/1.73 m?? [facility] Comment: This patient's estimated GFR [...] Organization Address City/State/[place] [address] XR Cervical Spine 2 [...] who have questions please contact the health career guidance counselor that requested your imaging first. ? Narrative [...] ho have questions please contact the health career guidance counselor that requested your imaging first. Harjeet Orta MD IMG DX ORDERABLES XR [...] who have questions please contact the health career guidance counselor that requested your imaging first. ? Narrative 12/24/2021 1:00 PM EDT EXAMINATION: XR [...] ho have questions please contact the health career guidance counselor that requested your imaging first. Harjeet Orta MD IMG DX ORDERABLES XR [...] who have questions please contact the health career guidance counselor that requested your imaging first. ? Electronically signed by: Norberto Mendoza, [facility] ([phone]), at 12/24/2021 10:14 AM Narrative 12/24/2021 10:14 [...] ho have questions please contact the health career guidance counselor that requested your imaging first. Electronically signed by: Norberto Mendoza, [facility] ([phone]), at 12/24/2021 10:14 AM Harjeet Orta MD IMG DX ORDERABLES documented in this encounter Visit Diagnoses Diagnosis 12/24/21 S/P C5-C7 ACDF (Dr. Orta) - P rimary Arthrodesis status Cervical disc disorder with radiculopath [...] Given 12/24/2021 3:56 PM EDT 40 mg HYDROmorphone (Dilaudid) (2 mg/mL) Given 12/24/2021 12:58 [...] 12:52 PM EDT 1,000 mLs 100 mL/hr valACYclovir (Valtrex) tablet 500 mg Given 12/25/2021 [...] Santos RN) 0556 (Given - Provider: Joyce Jones, RANDI)1411 (Given - Provider: Bety Min RN) 1,000 [...] Gonsalves RN)1323 (Stopped - Provider: Hudson Dos Santos RN)195 (New Bag - Provider: Hudson Dos Santos RN)2026 (Stopped - Provider: Hudson Dos Santos RN) 0423 (New Bag - Provider: Joyce Jones, RANDI)0453 (Due: Stopped - Provider: Joyce Jones, RANDI) [...] 900 (Due) 0700 (Verified - Provider: Bety Min, RANDI) Intravenous, 2 Times Daily - Shift Total [...] Routine pantoprazole EC (Protonix) tablet 40 mg 1514 (Given - Provider: Sarahy Combs RN) 927 (Given - Provider: Bety wagoner, RANDI) 40 mg, Oral, DAILY, First dose on Thu at 1515, Until Discontinued, DO NOT CRUSH OR OPEN, Routine polyethylene glycoL (Miralax) packet 17 g 2099 (Given - Provider: Hudson Dos Santos RN) 926 (Given - Provider: Bety wagoner, RN) 17 g, Oral, 2 TIMES DAILY, First dose on Thu12/24/21 at 2100, Until Discontinued, Routine pregabalin (Lyrica) capsule 100 mg 1623 (Given - Provider: Sarahy Combs RN)2029 (Given - Provider: Hudson Dos Santos RN) 926 (Given - Provider: Bety Min, RANDI)141 (Given - Provider: Bety Min RN) 100 mg, Oral, 3 TIMES DAILY, First dose on Thu12/24/21 at 1700, Until Discontinued, Routine senna-docusate (Pericolace) 8.6-50 mg per tablet 2 tablet 2029 (Given - Provider: Hudson Dos Santos RN) 927 (Given - Provider: Bety wagoner, RANDI) 2 [...] of shift.)2141 (New Bag - Provider: Joyce Jones RN) 0719 (New Bag - Provider: Joyec Jones RN)0810 (Stopped - Provider: Nadine Sow RN - Comment: by APS) 0.3 mg/kg/hr ? 89.9 kg (26.97 mL/hr, rounded to 27 mL/hr), Intravenous, CONTINUOUS, Starting on Thu12/24/21 at 1600, Until Thu12/25/21 at 0810 lidocaine (pf) (Xylocaine) (4 mg/mL) in dextrose 5% 500 mL i nfusion (CANCELED) 1118 (Continued Bag - Provider: Tiny Bell RN)[phone] (Not Given - Provider: Hudson Dos Santos RN - Reason: See comment - Comment: Prior to start of shift.) 1.5 mg/kg/hr ? 89.9 kg (33.7125 mL/hr, rounded to 33.7 mL/hr), Intravenous, CONTINUOUS, Starting on Thu12/24/21 at 1145, Until Thu12/24/21 at 1402, PACU Recovery, Routine sodium chloride 0.9% infusion 1252 (New Bag - Provider: Violeta Gonsalves RN)2139 (New Bag - Provider: Joyce Jones [...] 10 mg 1624 (Given - Provider: Sarahy Combs RN) 0928 (Given - Provider: Bety wagoner RN) [...] Provider: Cece Gonsalves RN)1239 (Given - Provider: Violeta Gonsalves RN)1258 (Given - Provider: Violeta Gonsalves [...] (See Alternative - Provider: Sarahy Combs RN) 0933 (See Alternative - Provider: Iliana Min RN) [...] HYDROmorphone (Dilaudid) tablet 6 mg(Linked Group 2) 162 (Given - Provider: Sarahy Combs RN) 0909 (Given - Provider: Bety wagoner RN) 6 [...]
Routine documented in this encounter Care Teams Vp Genetic Relationship Specialty Start Date End Date Glendy Cohen MD PCP - General 08/12/12 [address] [place] [address] documented as of this encounter
--- OUTSIDE RECORDS SUMMARY | 2022-01-31 15:46 | XMS_ITS | Encounter Summary ---
:1980 Author Organization [facility] [place] [address] Care Team Providers Name Role Phone Glendy Cohen MD Primary Care Provider Encounter Details Date Type Department Care Team Description 07/24/2020 Telephone Gastroenterology at [facility] [place] Radha Baires MD [facility] [place] [address] GASTROENTEROLOGY DEPT [phone] [place], [place] [address] (Wo rk) Social History Tobacco Use Types Packs/Day Years Used Date Former Smoker Cigarettes 0.5 11 Smokeless Tobacco: Never Used Comments: avs information given Alcohol Use Standard Drinks/Week Comments Yes 3 (1 standard drink = 0.6 oz pure alcoho l) 24oz [place] hard lemonade Alcohol Habits Answer Date Recorded How often do you have a drink containing Not asked alcohol? How many drinks containing alcohol do you have Not asked on a typical day when you are drinking? How often do you have six or more drinks on Not asked one occasion? Comment: 24oz [place] hard lemonade 10/30/2017 Sex Assigned at Date Recorded Not on file documented as of this encounter Miscellaneous Notes Telephone Encounter - Siva Rothman MD - 07/25/2020 2:47 PM EDT Images from the original note were not included. DIVISION OF GASTROENTEROLOGY & [facility]PATOLOG[facility] CALL Name: Jose Enrique Mcbride Date: 07/25/2020 Time: 2:47 PM Referring Location: [facility] Spoke with an DRAWING IN MACHINE TENDER HELPER followed by a nurse (Thu) taking care of Mr. Mcbride about plans for an ERCP today. I explained that with patient's normal bilirubin and unrevealing imaging (reviewed MRCP with Dr. Wheeler today) we would not recommend a [id number] for ERCP today. I said it was OK to resume patient's diet from our standpoint if patient is tolerating orals. I recommended the patient follow-up with us as an outpatient and trend labs and consider repeat cross-sectional abdominal imaging with plan to pursue EUS/ERCP if needed. This is not an official consult, as my recommendations are limited by my inability to interview and examine the patient as well as personally review the medical record, imaging, and laboratory findings. Siva Rothman MD PGY-4, Gastroenterology Telephone Encounter - Radha Baires MD - 07/24/2020 2:30 PM EDT Transfer Center Call: I received a call from MD Fabienne at [facility]. Briefly, this is a 40 y/o M admitted with EtOH withdrawal and RUQ pain. He underwent phenobarb protocol for withdrawal. Today is day 4 of hospital stay MRCP showing subtle suggestion of stone in the CBD 9mm. VS: 108/65 65 14 36.5 97%RA Exam per provider calling: Labs: (overall downtrending) AST 50 ALT 75 TBili 0.4 Based on the information provided to me, the general recommendations for this type of patient is NPOat [place] for possible here and back ERCP tomorrow. Will review imaging with advanced endoscopy. This is not an official consult, as my recommendations are limited by my inability to interview and examine the patient as well as personally review the medical record, imaging, and laboratory findings. Radha Baires MD Gastroenterology Fellow 07/24/2020 2:30 PM Pager #[phone] documented in this encounter Plan of Treatment Upcoming Encounters Date Type Specialty Care Team Description 03/27/2022 Appointment Radiology Harjeet Castorena MD [facility] [place], [place] [address] (Wo rk) 03/27/2022 Office Visit [facility] Greer Castorena MD [facility] [place], [place] [address] (Wo rk) documented as of [...] on filedocumented in this encounter Care Teams Blasting Entryman Relationship Specialty Start Date End Date Glendy Cohen MD PCP - General 08/12/12 [address] [place] [address] documented as of this encounter
--- OUTSIDE RECORDS SUMMARY | 2022-01-31 15:46 | XMS_ITS | Encounter Summary ---
:1980 Author Organization [facility] [place] [address] Care Team Providers Name Role Phone Glendy Cohen MD Primary Care Provider Reason for Visit Reason Comments Medication Management Encounter Details Date Type Department Care Team Description 04/01/2019 Specialty Pharmacy Pharmacy at [facility] [place] Jovana Zamora, [place] [phone] Social History Tobacco Use Types Packs/Day Years Used Date Former Smoker Cigarettes 0.5 11 Smokeless Tobacco: Never Used Comments: avs information given Alcohol Use Standard Drinks/Week Comments Yes 3 (1 standard drink = 0.6 oz pure alcoho l) 24oz [place] hard lemonade Alcohol Habits Answer Date Recorded How often do you have a drink containing Not asked alcohol? How many drinks containing alcohol do you have Not asked on a typical day when you are drinking? How often do you have six or more drinks on Not asked one occasion? Comment: 24oz [place] hard lemonade 10/30/2017 Sex Assigned at Date Recorded Not on file documented as of this encounter Progress Notes Jovana Zamora RPH - 04/01/2019 2:42 PM EST Specialty Pharmacy Consultation; Jovana Zamora Jamel Comprehensive Medication Management (CMM) Jose Enrique Mcbride Diagnosis: Psoriasis Therapy Start Date: TBA (new start) Contact in person or via telephone:telephone Mr. Jose Enrique Mcbride is a 39 y.o. (1980) male who was contacted in regard to specialty medication. Spoke with patient regarding Cosentyx . A review of the medication therapy was performed. The medication was Filled as scheduled, and all medication related questions and concerns were addressed. The specialty pharmacy staff will follow up with the patient 5-7 days prior to next refill. Is the patient willing to proceed with the Clinical Assessment? Yes Summary and Recommendations: Spoke to patient in regards to starting Cosentyx. Medication history, allergies, and medical conditions were confirmed. Patient has since added pantoprazole, betamethasone, and selenium sulfide to his current medication list. Patient was also recently admitted for pancreatitis and was released on 03/17. All other pieces of information are consistent with [facility]. Patient had been on Humira in the past, but says the Humira made him feel nauseous. He said the nausea lasted a few days, but was very severe. He said it helped his skin alittle bit We went over difference and similarities between Cosentyx and Humira; discussing dosing, side effects, warnings and precautions, and slight differences in administration. Patient confirms understanding. He said he will most likely be unable to come to clinic for his first dose, but will try to see if his local providers will oversee his first injection. Patient says he is affected all over. His current affected areas are his scalp, legs, arms, behind the ears, groin, and butt. He applies betamethasone foam, calcipotriene ointment, and uses selenium shampoo. He says he typically applies the calcipotriene and betamethasone twice a day. He also notes pain in his joints. He says his major affected areas are his back and knuckles. He notes some stiffness, the worst of it last about 30 minutes. He says the stiffness is present all day, but says walking helps relieve some of the stiffness. He has had 2 back surgeries in the past. He manages his pain by taking methadone, which he says works well for the most part. At this time, patient has no additional questions or concerns. He would like to see reduced skin andjoint involvement while starting on Cosentyx. We will follow up with him in 1 month to assess for tolerability and efficacy. Clinic follow-up needed: no Allergies and Drug intolerance: Allergies Allergen Reactions ??? Clindamycin Rash ??? Nsaids (Non-Steroidal Anti-Inflammatory Drug) History of ulcers Special Dietary or Hydration Requirements: no There is no height or weight on file to calculate BMI. Medication Reconciliation Discrepancies (compared to [facility] med list) -patient has added pantoprazole. Patient confirms use of selenium sulfide betamethasone Medication Adherence Adherence tools used: directed education Support network for adherence: healthcare provider Medication List: Current Outpatient Medications Medication Sig Dispense Refill ??? pantoprazole (PROTONIX) 40 mg Tablet, Delayed Release (E.C.) Take 40 mg by mouth daily. ??? Betamethasone Valerate 0.12 % Foam Apply topically. ??? Selenium Sulfide 2.25 % Shampoo Apply topically once a week. ??? secukinumab (COSENTYX, 2 SYRINGES,) 150 mg/mL Syringe Inject 300 mg subcutaneously every 7 days.Inject the contents of 2 pens (300mg) at weeks 0, 1, 2, 3, 4 and every 4 weeks thereafter. 10 mL 3 ??? Adalimumab 40 mg/0.8 mL Pen Injector Kit Inject 80mg (2 pens) subcutaneously on day 1, then inject 40mg (1 pen) every 2 weeks starting on day 7. (Patient not taking: Reported on 04/01/2019) 4 Pen 3 ??? ustekinumab (STELARA) 45 mg/0.5 mL Syringe Inject 0.5 mLs subcutaneously Every 12 weeks. Start with 0.5mL (45mg) on week 0 and 4, then every 12 weeks thereafter. (Patient not taking: Reported on 01/05/2019) 1 Syringe 5 ??? halobetasol (ULTRAVATE) 0.05 % Cream Apply to the affected areas on the arms, legs, back for 3 weeks. Take one week off before repeating. (Patient not taking: Reported on 04/01/2019) 50 g 3 ??? calcipotriene (DOVONEX) 0.005 % Cream Apply to the affected area on the groin twice daily till clear. Can use twice daily in the ears on Q-tip till clear 60 g 3 ??? ketoconazole (NIZORAL) 2 % Cream Apply to to the affected areas on the hand twice daily. Apply under occulusion with glove at night for 2-3 hours. (Patient not taking: Reported on 04/01/2019) 30 g 2 ??? ustekinumab (STELARA) 45 mg/0.5 mL Syringe Starter pack 45mg SC on day 0 and then 4 weeks later.(Patient not taking: Reported on 01/05/2019) 2 Syringe 0 ??? ustekinumab (STELARA) 45 mg/0.5 mL Syringe Inject 0.5 mLs subcutaneously Q 3 Months. (Patient not taking: Reported on 01/05/2019) 1 Syringe 3 ??? cyclobenzaprine (FLEXERIL) 10 mg Tablet Take 10 mg by mouth 3 times daily as needed for Muscle spasms. ??? methadone (METHADOSE) 10 mg/5 mL Solution Take 70 mg by mouth every 4 hours as needed for Pain. 80 mg daily as of 01-15-18 Indications: 85 mg 02-17-18 ??? acetaminophen (TYLENOL) 500 mg Tablet Take 2 tablets by mouth every 6 hours. 30 tablet 0 ??? valACYclovir (VALTREX) 500 mg tablet Take 500 mg by mouth 2 times daily. ??? albuterol (PROVENTIL HFA;VENTOLIN HFA) 90 mcg/actuation inhaler Inhale 2 puffs into the lungs every 4 hours as needed. Use with spacer No current facility-administered medications for this visit. Most Recent Vitals: Ht Readings from Last 1 Encounters: 04/28/18 172.7 cm (5' 8) Wt Readings from Last 3 Encounters: 04/28/18 74.8 kg (165 lb) 12/04/17 72.6 kg (160 lb) 10/30/17 74.8 kg (165 lb) Temp Readings from Last 3 Encounters: 10/30/17 36.4 ??C (97.5 ??F) 10/28/17 36.5 ??C (97.7 ??F) (Oral) BP Readings from Last 3 Encounters: 04/28/18 136/87 12/04/17 128/76 10/30/17 (!) 167/110 Pulse Readings from Last 3 Encounters: 12/04/17 81 10/30/17 58 10/28/17 95 Pertinent Lab values: Lab Results Component Value Date NA 137 12/23/2018 K 4.7 12/23/2018 CL 101 12/23/2018 CO2 26 12/23/2018 BUN 15 12/23/2018 CREATININE 1.04 12/23/2018 GLUCOSE 104 12/23/2018 CALCIUM 9.6 12/23/2018 Lab Results Component Value Date ALT 30 12/23/2018 AST 30 12/23/2018 ALKPHOS 85 12/23/2018 BILITOT 1.0 12/23/2018 ALBUMIN 4.8 12/23/2018 PROT 7.7 12/23/2018 Lab Results Component Value Date WBC 6.8 12/23/2018 HGB 14.7 12/23/2018 HCT 43.1 12/23/2018 MCV 98.2 (H) 12/23/2018 PLATELET 287 12/23/2018 No results found for: HA1C There is no immunization history on file for this patient. Assessment and Recommendations: Title Type of Medication Management: chronic disease management, targeted medication review Referred By: pharmacist Recipient: beneficiary Provider: plan sponsor pharmacist Visit Type: [facility] [place] Method of Contact: by telephone Cognitive Ability: good Cognitive Impairment Status Verified this Year: no Patient Counseling Counseled the patient on the following: reviewed medication changes since last visit, medication safety precautions education provided, doses and administration discussed, safe handling, storage, and disposal discussed, possible adverse effects and management discussed, possible drug and prescription drug interactions discussed, lab monitoring and follow-up discussed, therapeutic rationale discussed, cost of medications and cost implications discussed, adherence and missed doses discussed, pharmacy contact information discussed, health goals discussed, preventative care discussed, self-monitoring discussed, start medication discussed, timing of medications discussed, vaccination discussed, referral needs discussed Drug Medication Management Summary Topics discussed: reviewed medication changes since last visit, medication safety precautions education provided, doses and administration discussed, safe handling, storage, and disposal discussed, possible adverse effects and management discussed, possible drug and prescription drug interactions discussed, lab monitoring and follow-up discussed, therapeutic rationale discussed, cost of medications and cost implications discussed, adherence and missed doses discussed, pharmacy contact information discussed, health goals discussed, preventative care discussed, self-monitoring discussed, start medication discussed, timing of medications discussed, vaccination discussed, referral needs discussed Time spent: 16-30 min Treatment Outcomes No data found in the last 10 encounters. Reviewed in detail with patient: Dose appropriateness based on recommended standard dosing Current medication list including OTC medications Medication and disease problems Allergies Comorbid conditions/ Problem List Past adverse events if any Special needs of the patient including physical and cognitive limitations Goals of therapy and management strategies Warnings, precautions, and contraindications Side effects Drug-drug and drug-food interactions Administration instructions including dose, frequency and method Handling, storage, and disposal of the medication Relevant lab data Patient verbalizes understanding and is able to read-back instructions on self-administration/injection, proper storage, drug stability, importance of adherence and management strategies, side effect avoidance and mitigation strategies, and interruptions in therapy: Yes Physical Assessment: Functional limitations identified: no Cognitive limitations identified: no Concern regarding orientation/memory: no Concern with reasoning/judgement: no Is patient a fall risk: no Other needed information: no Social Assessment: Does the patient have a primary client care consultant? no Patient has emergency contact on file: Yes Does patient need referral to psych social worker: No Does patient need referral to advocacy group: No Physical and Home Health Assessment: Is the patient able to store their medication as directed? Yes Is the patient in a safe home environment? Yes Do you have a support network? Yes Reviewed potential home safety hazards: No Economic Assessment: Patient is agreeable to medication copay: Yes Copay Amount: $3.00 Day Supply: 35 Date Needed: TBA (new start) Copay assistance required: no Therapy Assessment: Current Medication Dosing/Route/Frequency: Cosentyx 150mg/mL Inject 300mg under the skin on week 0,1,2,3, and 4, then every 4 weeks thereafter Appropriate Therapy: Yes Current Affected Areas: scalp, legs, arms, behind the ears, groin, butt Total BSA involved: unknown Recent Skin Exacerbations/Flaring: yes - patient is currnetly flaring Recent Topical Corticosteroid Use: yes - betamethasone Relapsing/Remitting Factors: no Diagnosis of Psoriatic Arthritis: No Expected Outcome: Patient would like to see improvements in his skin and joints while starting Cosentyx Patient's goals: Patient's specific desired goal: Patient would like to see at least 50% decrease in skin involvementand decrease in joint pain by the 3 to 6 month melvin while starting Cosentyx. Measured by: current affected skin and joints Time-frame to meet goal: 3-6 months Care Plan Reviewed and Approved by both Pharmacist and Patient: Yes Patient's Problems/Needs: N/A Monitoring requirements for prescribed medication: CBC, CMP, TB, Hepatitis panel Interventions (if applicable): No Educational information or adherence tools provided: Yes Additional equipment/supplies required: no Pharmacist follow-up needed: Yes Informed patient of specialty pharmacy services: Yes -Patient will be provided with welcome packet: Yes Date to be provided: 01/11/19 Delivery Method: mail -Patient will be provided with Rights & Responsibilities: Yes Date to be provided: ~04/06/19 (sent with first fill) Delivery Method: mail -Patient is aware a licensed pharmacist is available 24 hours a day, 7 days a week to discuss medication-related questions or concerns: Yes -Patient verbalizes understanding of the common side effect profile of their medication. The patientis able to call 911 or seek urgent care if signs/symptoms of allergy or harmful adverse reactions occur: Yes Patient understands no changes to current drug regimen were made at the appointment and that [facility] is providing recommendations (summary located at top of note) for provider review and follow up. Jovana Zamora RPH 04/01/19 3:16 PM documented in this encounter Plan of Treatment Upcoming Encounters Date Type Specialty Care Team Description 03/27/2022 Appointment Radiology Harjeet Castorena MD [facility] [address] (Wo rk) 03/27/2022 Office Visit [facility] Center Greer Castorena MD [facility] [place], [place] [address] (Wo rk) documented as of [...] on filedocumented in this encounter Care Teams Sales Financial Analyst Relationship Specialty Start Date End Date Glendy Cohen MD PCP - General 08/12/12 [address] [place] [address] documented as of this encounter
--- OUTSIDE RECORDS SUMMARY | 2022-01-31 15:46 | XMS_ITS | Encounter Summary ---
:1980 Author Organization [facility] [place] [address] Care Team Providers Name Role Phone Glendy Cohen MD Primary Care Provider Reason for Visit Reason Onset Date Comments Medication Management 03/22/2019 Encounter Details Date Type Department Care Team Description 03/22/2019 Telephone Pharmacy at [facility] [place] Maude Edwards, [place] [address] Social History Tobacco Use Types Packs/Day Years Used Date Former Smoker Cigarettes 0.5 11 Smokeless Tobacco: Never Used Comments: avs information given Alcohol Use Standard Drinks/Week Comments Yes 3 (1 standard drink = 0.6 oz pure alcoho l) 24oz [place] hard lemonade Alcohol Habits Answer Date Recorded How often do you have a drink containing Not asked alcohol? How many drinks containing alcohol do you have Not asked on a typical day when you are drinking? How often do you have six or more drinks on Not asked one occasion? Comment: 24oz [place] hard lemonade 10/30/2017 Sex Assigned at Date Recorded Not on file documented as of this encounter Miscellaneous Notes Telephone Encounter - Maude Winkler, [facility] - 03/22/2019 10:53 AM EST Jose Enrique Mcbride 03/22/2019 Jose Enrique Mcbride 1980 called into the Specialty Pharmacy after being contacted for a one month follow-up and refill for his Humira therapy. The patient informed the Specialty Pharmacist that he did not want to fill his Humira as after each of his first two injections he had experienced 2-3 days of intense nausea and vomiting. The patient requested his provider, Dr. Pedroza, be contacted to see if an alternate therapy would be appropriate. Dr. Pedroza had previously prescribed the patient Stelara but therapy was switched over to Humira per insurance. The provider approved re-initiation of the PA process for Stelara, but Cosentyx was still preferred over Stelara. A prior-authorization was approved for Cosentyx and Dr. Pedroza authorized the patient being counseled on and beginning therapy withCosentyx. Maude Cruz RPh 03/22/2019 documented in this encounter Plan of Treatment Upcoming Encounters Date Type Specialty Care Team Description 03/27/2022 Appointment Radiology Harjeet Castorena MD [facility] [place] [address] (Wo rk) 03/27/2022 Office Visit [facility] Greer Castorena MD [facility] [place], [place] [address] (Wo rk) documented as of this encounter Goals Goal Patient Goal Associated Recent Patient-Stated? Author Type Problems Progress DH Home Medication Patient No Rey , Compliance and Facing JADE Hassan H Understanding Action Plan Note: Formatting of this note might be d ifferent from the original. To see at least a 50% reduction in psori atic lesions within 3-6months documented as of this encounter Visit Diagnoses Not on filedocumented in this encounter Care Teams Botanical Technical Officer Relationship Specialty Start Date End Date Glendy Cohen MD PCP - General 08/12/12 [address] [place] [address] documented as of this encounter
--- OUTSIDE RECORDS SUMMARY | 2022-01-31 15:46 | XMS_ITS | Encounter Summary ---
:1980 Author Organization [facility] [place] [address] Care Team Providers Name Role Phone Glendy Cohen MD Primary Care Provider Encounter Details Date Type Department Care Team Description 01/03[facility]2019 [facility] [address] [facility] [address] [facility] [phone] [place], [place] [address] (Wo rk) Social History Tobacco Use Types Packs/Day Years Used Date Former Smoker Cigarettes 0.5 11 Smokeless Tobacco: Never Used Comments: avs information given Alcohol Use Standard Drinks/Week Comments Yes 3 (1 standard drink = 0.6 oz pure alcoho l) 24oz [place] hard lemonade Alcohol Habits Answer Date Recorded How often do you have a drink containing Not asked alcohol? How many drinks containing alcohol do you have Not asked on a typical day when you are drinking? How often do you have six or more drinks on Not asked one occasion? Comment: 24oz [place] hard lemonade 10/30/2017 Sex Assigned at Date Recorded Not on file documented as of this encounter Plan of Treatment Upcoming Encounters Date Type Specialty Care Team Description 03/27/2022 Appointment Radiology Harjeet Castorena MD [facility] SPINE CENTER [place], [place] [address] (Wo rk) 03/27/2022 Office Visit [facility] Center Greer Castorena MD [facility] [address] SPINE CENTER [place], [place] [address] (Wo rk) documented as of this encounter Visit Diagnoses Not on filedocumented in this encounter Care Teams Digital Circuit Designer Relationship Specialty Start Date End Date Glendy Cohen MD PCP - General 08/12/[address] [facility] [place] [address] documented as of this encounter
--- OUTSIDE RECORDS SUMMARY | 2022-01-31 15:46 | XMS_ITS | Encounter Summary ---
:1980 Author Organization [facility] [place] [address] Care Team Providers Name Role Phone Glendy Cohen MD Primary Care Provider Reason for Visit Reason Comments Medication Management Encounter Details Date Type Department Care Team Description 02/09/2019 Specialty Pharmacy Pharmacy at [facility] Jovana Zamora, [place] [phone] Social History Tobacco Use Types Packs/Day Years Used Date Former Smoker Cigarettes 0.5 11 Smokeless Tobacco: Never Used Comments: avs information given Alcohol Use Standard Drinks/Week Comments Yes 3 (1 standard drink = 0.6 oz pure alcoho l) 24oz [place] hard lemonade Alcohol Habits Answer Date Recorded How often do you have a drink containing Not asked alcohol? How many drinks containing alcohol do you have Not asked on a typical day when you are drinking? How often do you have six or more drinks on Not asked one occasion? Comment: 24oz [place] hard lemonade 10/30/2017 Sex Assigned at Date Recorded Not on file documented as of this encounter Progress Notes Jovana Zamora [facility] - 02/09/2019 11:07 AM EDT Clinical Management Plan: Refill Specialty Pharmacy Consultation; Jovana Zamora [facility] Comprehensive Medication Management (CMM) Jose Enrique Mcbride is a 38 y.o. (1980) male who was contacted in regard to a specialty medication refill reminder. Spoke with patient regarding Humira. A review of the medication therapy was performed. The medication was Filled as scheduled, and all medication related questions and concerns were addressed. The specialty pharmacy staff will follow up with the patient 5-7 days prior to next refill. Patient states he gets nauseous for about 2 days after his injection. He says it so bad that he doesnot want to get out of bed. I told him about 9% of patients experience nausea while on Humira. Patient does not take anything for the nausea. He would like to continue as he is seeing clearing in his skin. We will continue to monitor. Was a change made to the Care Plan: no Assessment and Recommendations: Title Type of Medication Management: chronic disease management, targeted medication review Referred By: pharmacist Recipient: beneficiary Provider: plan sponsor pharmacist Visit Type: [facility] Follow-up Method of Contact: by telephone Cognitive Ability: good Cognitive Impairment Status Verified this Year: no Allergies and Drug intolerance: Allergies Allergen Reactions ??? Clindamycin Rash ??? Nsaids (Non-Steroidal Anti-Inflammatory Drug) History of ulcers Medication Reconciliation Discrepancies (compared to [facility] med list) -none New medications: no New medical conditions: no New allergies: no Adherence: Medication Adherence Patient reported X missed doses in the last month: 0 Any gaps in refill history greater than 2 weeks in the last 3 months: no Demonstrates understanding of importance of adherence: yes Informant: patient Reliability of informant: reliable Provider-estimated medication adherence level: 90-100% Reasons for non-adherence: no problems identified Adherence tools used: directed education Support network for adherence: healthcare provider Confirmed plan for next specialty medication refill: delivery by pharmacy Refills needed for supportive medications: not needed Are you experiencing any side effects from your medications? yes Nausea Pt understands no changes to current drug regimen were made at the appointment and that [facility] is providing recommendations (summary located at top of note) for provider review and follow up. Jovana Zamora RPH 02/09/19 11:08 AM documented in this encounter Plan of Treatment Upcoming Encounters Date Type Specialty Care Team Description 03/27/2022 Appointment Radiology Harjeet Castorena MD [facility] [place] [address] (Wo rk) 03/27/2022 Office Visit [facility] Sp[facility] Center Greer Castorena MD [facility] SP[facility] CENTER [place], [place] [address] (Wo rk) documented as of [...] on filedocumented in this encounter Care Teams Coal Yard Supervisor Relationship Specialty Start Date End Date Glendy Cohen MD PCP - General 08/12/[address] [place] [address] documented as of this encounter
--- OUTSIDE RECORDS SUMMARY | 2022-01-31 15:46 | XMS_ITS | Encounter Summary ---
:1980 Author Organization [facility] Address [address] [place] [address] Care Team Providers Name Role Phone Glendy Cohen MD Primary Care Provider Encounter Details Date Type Department Care Team Description 08/23/2018 Hospital Encounter [place] [facility] Otilio Horn Canceled One [facility] MD Su (P-INCONVENIENT DATE Drive [facility]) [place], [place] [address] SP[facility] CENTER [phone] [place] [id number] Social History Tobacco Use Types Packs/Day Years Used Date Former Smoker Cigarettes 0.5 11 Smokeless Tobacco: Never Used Comments: avs information given Alcohol Use Standard Drinks/Week Comments Yes 3 (1 standard drink = 0.6 oz pure alcoho l) 24oz [place] hard lemonade Alcohol Habits Answer Date Recorded How often do you have a drink containing Not asked alcohol? How many drinks containing alcohol do you have Not asked on a typical day when you are drinking? How often do you have six or more drinks on Not asked one occasion? Comment: 24oz [place] hard lemonade 10/30/2017 Sex Assigned at Date Recorded Not on file documented as of this encounter Medications at Time of Discharge Medication Sig Dispensed Refills Start Date End Date cyclobenzaprine (FLEXERIL) Take 10 mg by 0 10 mg Tablet mouth 3 times daily as needed for Muscle spasms. methadone (METHADOSE) 10 Take 115 mg by 0 mg/5 mL Solution mouth daily. valACYclovir (VALTREX) 500 Take 500 mg by 0 mg tablet mouth 2 times daily. albuterol (PROVENTIL Inhale 2 puffs 0 HFA;VENTOLIN HFA) 90 into the lungs mcg/actuation inhaler every 4 hours as needed. Use with spacer acetaminophen (TYLENOL) 500 Take 2 tablets by 30 tablet 0 0 10/28/2017 12/25/2021 mg Tablet mouth every 6 hours. documented as of this encounter Progress Notes Zeb Rivera RN - 08/18/2018 8:00 AM EDT MRI PRE-SEDATION ASSESSMENT NOTE NAME: Jose Enrique Mcbride AGE: 38 y.o. : 1980 [address] [place] [address] Male [phone] (home) [phone] (work) Telephone Information: Glendy Cohen MD None Allergies Allergen Reactions ??? Clindamycin Rash ??? Nsaids (Non-Steroidal Anti-Inflammatory Drug) History of ulcers Date/Time of call: August 18, 2018/8:00 AM/ PREVIOUS MRI SCAN? Yes HEIGHT: 5'8 WEIGHT: 165 lbs SCHEDULED SCAN: MRI CERVICAL SPINE WO CONTRAST [ULS387], 40 min Order Questions Answers Where will study be performed? [facility] [120] Reason for exam and clinical history: only left and right obliques are needed. pre op study. SUBJECTIVE: CAN YOU LAY FLAT? AIRWAY ISSUES? DO YOU HAVE ANY INVOLUNTARY MOVEMENTS? (explain) DO YOU HAVE ANY PAIN? Methadone and flexeril on med list DO YOU TAKE PAIN MED ON A DAILY BASIS? ASSESSMENT: PLAN: ( XXX ) You must have a frontload driver present when you check in. This patient has been informed that they require a frontload driver to drive them home after this procedure. In the absence of a frontload driver, IR will not be able to sedate for your scan. Pt verbalized understanding of these instructions during the pre-procedure education via phone. Yes [place] of frontload driver: Phone number PRIOR SCAN DATE/S SEDATION TYPE SUCCESSFUL Multiple in 2011, 10-26-2017 MRI Cervical Spine Unknown? 02/17/18 cervical spine wo MRI Valium 5 mg PO x 2 Yes ? Revised 10/06/17 documented in this encounter Plan of Treatment Upcoming Encounters Date Type Specialty Care Team Description 03/27/2022 Appointment Radiology Harjeet Castorena MD [facility] SPINE [place], [place] [address] (Wo rk) 03/27/2022 Office Visit [facility] Sp[facility] Center Greer Castorena MD [facility] SPINE [place], [place] [address] (Wo rk) documented as of this encounter Visit Diagnoses Not on filedocumented in this encounter Care Teams Coat Hanger Shaper Machine Operator Relationship Specialty Start Date End Date Glendy Cohen MD PCP - General 08/12/12 [address] [place] [address] documented as of this encounter
--- OUTSIDE RECORDS SUMMARY | 2022-01-31 15:46 | XMS_ITS | Encounter Summary ---
:1980 Author Organization [facility] [place] [address] Care Team Providers Name Role Phone Glendy Cohen MD Primary Care Provider Encounter Details Date Type Department Care Team Description 01/02/2020 [facility] [address] [facility] [place] [address] [facility] [phone] [place], [place] [address] (Wo rk) Social History Tobacco Use Types Packs/Day Years Used Date Former Smoker Cigarettes 0.5 11 Smokeless Tobacco: Never Used Comments: avs information given Alcohol Use Standard Drinks/Week Comments Yes 3 (1 standard drink = 0.6 oz pure alcoho l) 24oz [place] hard lemonade Alcohol Habits Answer Date Recorded How often do you have a drink containing Not asked alcohol? How many drinks containing alcohol do you have Not asked on a typical day when you are drinking? How often do you have six or more drinks on Not asked one occasion? Comment: 24oz [place] hard lemonade 10/30/2017 Sex Assigned at Date Recorded Not on file documented as of this encounter Plan of Treatment Upcoming Encounters Date Type Specialty Care Team Description 03/27/2022 Appointment Radiology Harjeet Castorena MD [facility] [address] SPINE CENTER [place], [place] [address] (Wo rk) 03/27/2022 Office Visit [facility] Greer Castorena MD [facility] [address] SPINE CENTER [place], [place] [address] (Wo rk) documented as of [...] on filedocumented in this encounter Care Teams Package Checker Relationship Specialty Start Date End Date Glendy Cohen MD PCP - General 08/12/12 [address] [place] [address] documented as of this encounter
--- OUTSIDE RECORDS SUMMARY | 2022-01-31 15:46 | XMS_ITS | Encounter Summary ---
:1980 Author Organization [facility] [place] [address] Care Team Providers Name Role Phone Glendy Cohen MD Primary Care Provider Reason for Visit Reason Onset Date Comments Prior Authorization 12/24/2018 Encounter Details Date Type Department Care Team Description 12/24/[facility] [address] [place] [address] [place] [address] RD-DERMATOLOGY [place] [address] (Wo rk) Social History Tobacco Use Types Packs/Day Years Used Date Former Smoker Cigarettes 0.5 11 Smokeless Tobacco: Never Used Comments: avs information given Alcohol Use Standard Drinks/Week Comments Yes 3 (1 standard drink = 0.6 oz pure alcoho l) 24oz [place] hard lemonade Alcohol Habits Answer Date Recorded How often do you have a drink containing Not asked alcohol? How many drinks containing alcohol do you have Not asked on a typical day when you are drinking? How often do you have six or more drinks on Not asked one occasion? Comment: 24oz [place] hard lemonade 10/30/2017 Sex Assigned at Date Recorded Not on file documented as of this encounter Miscellaneous Notes Telephone Encounter - Cindy Lou - 12/27/2018 8:34 AM EDT I called [place] Medicaid to request for an update regarding recently submitted PA request as the fax machine is not working properly. Insurance rep cites that a PA request is not necessary as the medication is preferred. I have informed the pharmacy, who was able to receive a paid claim for the medication. They will fill the medication tomorrow and inform the patient Telephone Encounter - Cindy Lou - 12/24/2018 8:50 AM EDT PA request for Dovonex cream was completed and faxed Pending review documented in this encounter Plan of Treatment Upcoming Encounters Date Type Specialty Care Team Description 03/27/2022 Appointment Radiology Harjeet Castorena MD [facility] SPINE [place], [place] [address] (Wo rk) 03/27/2022 Office Visit [facility] Sp[facility] Center Greer Castorena MD [facility] SPINE [place], [place] [address] (Wo rk) documented as of this encounter Visit Diagnoses Not on filedocumented in this encounter Care Teams Event Staff Member Relationship Specialty Start Date End Date Glendy Cohen MD PCP - General 08/12/12 [address] [place] [address] documented as of this encounter
--- OUTSIDE RECORDS SUMMARY | 2022-01-31 15:46 | XMS_ITS | Encounter Summary ---
:1980 Author Organization [facility] [place] [address] Care Team Providers Name Role Phone Glendy Cohen MD Primary Care Provider Reason for Visit Reason Comments Medication Management Encounter Details Date Type Department Care Team Description 11/10/2019 Specialty Pharmacy Pharmacy at [facility] Maxi Reed, [place] [phone] Social History Tobacco Use Types Packs/Day Years Used Date Former Smoker Cigarettes 0.5 11 Smokeless Tobacco: Never Used Comments: avs information given Alcohol Use Standard Drinks/Week Comments Yes 3 (1 standard drink = 0.6 oz pure alcoho l) 24oz [place] hard lemonade Alcohol Habits Answer Date Recorded How often do you have a drink containing Not asked alcohol? How many drinks containing alcohol do you have Not asked on a typical day when you are drinking? How often do you have six or more drinks on Not asked one occasion? Comment: 24oz [place] hard lemonade 10/30/2017 Sex Assigned at Date Recorded Not on file documented as of this encounter Progress Notes Maxi Reed, [facility] - 11/10/2019 9:44 AM EDT Clinical Management Plan: Refill Specialty Pharm[facility]; [facility] Comprehensive Medication Management (CMM) Jose Enrique Mcbride is a 39 y.o. (1980) male who was contacted in regard to a specialty medication refill reminder. Spoke with patient regarding Cosentyx. A review of the medication therapy was performed. The medication was Refilled as scheduled, and all medication related questions and concernswere addressed. The specialty pharmacy staff will follow up with the patient 5-7 days prior to next refill. Was a change made to the Care Plan: no If yes, should the medication be held: No Assessment and Recommendations: Title Type of Medication Management: chronic disease management, targeted medication review Referred By: provider Recipient: beneficiary Provider: plan sponsor pharmacist Visit Type: [facility] Follow-up Method of Contact: by telephone Cognitive Ability: good Cognitive Impairment Status Verified this Year: no Allergies and Drug intolerance: Allergies Allergen Reactions ??? Clindamycin Rash ??? Nsaids (Non-Steroidal Anti-Inflammatory Drug) History of ulcers Medication Reconciliation Discrepancies (compared to [facility] med list) -none New medications: no New [...] experiencing any side effects from your medications? no Pt understands no changes to current drug regimen were made at the appointment and that [facility] is providing recommendations (summary located at top of note) for provider review and follow up. Maxi Reed RPH 11/10/19 9:45 AM documented in this encounter Plan of Treatment Upcoming Encounters Date Type Specialty Care Team Description 03/27/2022 Appointment Radiology Harjeet Castorena MD [facility] DR SPINE [place], [place] [address] (Chanda cunningham) 03/27/2022 Office Visit Pain and Spine Center Greer Castorena MD [facility] SPINE [place], [place] [address] (Chanda cunningham) documented as of this encounter Goals Goal [...] on filedocumented in this encounter Care Teams Mobile Home Installer Relationship Specialty Start Date End Date Glendy Cohen MD PCP - General 08/12/12 [address] [place] [address] documented as of this encounter
--- OUTSIDE RECORDS SUMMARY | 2022-01-31 15:46 | XMS_ITS | Encounter Summary ---
:1980 Author Organization [facility] [place] [address] Care Team Providers Name Role Phone Glendy Cohen MD Primary Care Provider Reason for Visit Reason Onset Date Comments Medication Refill 12/24/2018 Encounter Details Date Type Department Care Team Description 12/24/2018 [facility] [address] [facility] [place] [address] [facility] [phone] [place], [place] [address] (Wo rk) Social History Tobacco Use Types Packs/Day Years Used Date Former Smoker Cigarettes 0.5 11 Smokeless Tobacco: Never Used Comments: avs information given Alcohol Use Standard Drinks/Week Comments Yes 3 (1 standard drink = 0.6 oz pure alcoho l) 24oz [place] hard lemonade Alcohol Habits Answer Date Recorded How often do you have a drink containing Not asked alcohol? How many drinks containing alcohol do you have Not asked on a typical day when you are drinking? How often do you have six or more drinks on Not asked one occasion? Comment: 24oz [place] hard lemonade 10/30/2017 Sex Assigned at Date Recorded Not on file documented as of this encounter Plan of Treatment Upcoming Encounters Date Type Specialty Care Team Description 03/27/2022 Appointment Radiology Harjeet Castorena MD [facility] SPINE CENTER [place], [place] [address] (Wo rk) 03/27/2022 Office Visit Pain [facility] Spine Center Greer Castorena MD [facility] [address] SPINE CENTER [place], [place] [address] (Wo rk) documented as of this encounter Visit Diagnoses Not on filedocumented in this encounter Care Teams Road Roller Engineer Relationship Specialty Start Date End Date Glendy Cohen MD PCP - General 08/12/12 [address] [facility] 1 [place] [address] documented as of this encounter
--- OUTSIDE RECORDS SUMMARY | 2022-01-31 15:46 | XMS_ITS | Encounter Summary ---
:1980 Author Organization [facility] [place] [address] Care Team Providers Name Role Phone Glendy Cohen MD Primary Care Provider Reason for Visit Reason Comments Medication Management Encounter Details Date Type Department Care Team Description 08/17/2019 Specialty Pharmacy Pharmacy at [facility] Jovana Zamora, [place] [id number] Social History Tobacco Use Types Packs/Day Years Used Date Former Smoker Cigarettes 0.5 11 Smokeless Tobacco: Never Used Comments: avs information given Alcohol Use Standard Drinks/Week Comments Yes 3 (1 standard drink = 0.6 oz pure alcoho l) 24oz [place] hard lemonade Alcohol Habits Answer Date Recorded How often do you have a drink containing Not asked alcohol? How many drinks containing alcohol do you have Not asked on a typical day when you are drinking? How often do you have six or more drinks on Not asked one occasion? Comment: 24oz [place] hard lemonade 10/30/2017 Sex Assigned at Date Recorded Not on file documented as of this encounter Progress Notes Jovana Zamora RPH - 08/17/2019 10:48 AM EDT Specialty Pharmacy Consultation; Jovana Zamora Jamel Comprehensive Medication Management (CMM) Jose Enrique Mcbride Diagnosis: Psoriasis Therapy Start Date: 07/30/2019 Contact in person or via telephone:telephone Mr. Jose Enrique Mcbride is a 39 y.o. (1980) male who was contacted in regard to specialty medication. Spoke with patient regarding Cosentyx. A review [...] Recommendations: Spoke to patient in regards to Cosentyx. Medication history, allergies, and medical conditions were confirmed. Patient has since added Fluoxetine 10mg taken once a day and Acamprosate 666mg taken threetimes a day. All other pieces of information are consistent with [facility]. Patient confirms proper injection storage, administration, and disposal. Patient had been sick during the winter months, but has since recovered. He did not start the Cosentyx until fairly recently due to illnesses. He confirms understanding of when to call clinic in order to assess if a hold in dose is needed. Currently, patient says he is doing well on therapy. He denies experiencing any adverse reactions including site reactions. He did note pain in his left shoulder that started around the same time as the start of Cosentyx. He had a torn rotator cuff injury in the past. He said it is not too bothersome and will monitor it. He says he has not noticed the same level of headaches and nausea that he saw with the Humira. Topically, patient says he notices less scaling/flakiness, reduction in itchiness and a reduction in redness in most of his affected areas. He says the affected areas are still the same, but they look and feel better. He applies calcipotriene and betamethasone to his skin. He says his scalp is almost completely clear with the addition of the selenium sulfide shampoo. He says his face still looks red; he would describe it as a wind burn level of redness. Overall, patient is doing well on therapy and wishes to continue with therapy in hopes of seeing complete clearance. At this time, patient does not have any questions or concerns. Patient has our contact number shouldhe have questions or concerns going forward. We will continue to follow up with patient accordingly. Clinic follow-up needed: yes - will need a follow-up at some point Allergies and Drug intolerance: Allergies Allergen Reactions ??? Clindamycin Rash ??? Nsaids (Non-Steroidal Anti-Inflammatory Drug) History of ulcers Special Dietary or Hydration Requirements: no There is no height or weight on file to calculate BMI. Medication Reconciliation Discrepancies (compared to [facility] med list) yes - patient has since added acamprosate and fluoxetine to his regimen Medication Adherence Patient reported X missed doses [...] Refills needed for supportive medications: not needed Medication List: Current Outpatient Medications Medication Sig Dispense Refill ??? acamprosate DR (Campral) 333 mg Tablet, Delayed Release (E.C.) Take 666 mg by mouth 3 times daily. ??? FLUoxetine (PROzac) 10 mg Capsule Take 10 mg by mouth daily. ??? pantoprazole (PROTONIX) 40 mg Tablet, Delayed Release (E.C.) Take 40 mg by mouth daily. ??? Betamethasone Valerate 0.12 % Foam Apply topically. ??? Selenium Sulfide 2.25 % Shampoo Apply topically once a week. ??? Adalimumab 40 mg/0.8 mL Pen Injector Kit Inject 80mg (2 pens) subcutaneously on day 1, then inject 40mg (1 pen) every 2 weeks starting on day 7. (Patient not taking: Reported on 04/01/2019) 4 Pen 3 ??? secukinumab (COSENTYX, 2 SYRINGES,) 150 mg/mL Syringe Inject 300 mg subcutaneously every 7 days.Inject the contents of 2 pens (300mg) at weeks 0, 1, 2, 3, 4 and every 4 weeks thereafter. 10 mL 3 ??? ustekinumab (STELARA) 45 mg/0.5 mL [...] beneficiary Provider: plan sponsor pharmacist Visit Type: [facility] Follow-up Method of Contact: by telephone Cognitive [...] pharmacy contact information discussed, health goals discussed, monitoring medication discussed, preventative care discussed, recommendations to doctor discussed, reminder to refill or machine operator picker medication discussed, self-monitoring discussed, timing of medications discussed, vaccination discussed, [...] pharmacy contact information discussed, health goals discussed, monitoring medication discussed, preventative care discussed, recommendations to doctor discussed, reminder to refill or machine operator picker medication discussed, self-monitoring discussed, timing of medications discussed, vaccination discussed, [...] frequency and method Handling, storage, and disposal Verifying expiration dates on products before use Rotating medication inventory to use oldest product first Relevant lab data Patient verbalizes understanding and is able to read-back instructions on self-administration/injection, proper storage, drug stability, importance of adherence and management strategies, side effect avoidance and mitigation strategies, and interruptions in therapy: Yes Physical and Cognitive Assessment: Functional limitations identified: no Cognitive limitations identified: no Concern regarding orientation/memory: no Concern with reasoning/judgement: no Is patient a fall risk: no Other needed information: no Social Assessment: Does the patient have a primary wound care nurse? no Does the patient have an emergency contact on file: Yes Does patient need referral to psychiatric social worker supervisor: No Does patient need referral to advocacy group: No Home Health Assessment: Is the patient in a safe home environment? Yes Is the patient able to store their medication as directed? Yes Does the patient have a support network at home? Yes Reviewed potential home safety hazards with patient: No Economic Assessment: Patient is agreeable to medication copay: yes Copay Amount: $0.00 per last fill. This fill needs a new Day Supply: 28 Date Needed: 08/27/2019 Copay assistance required: no Therapy Assessment: Appropriate Therapy: Yes Current Medication Dosing/Route/Frequency: Cosentyx 150mg/mL Inject 300mg under the skin every 28 days Effective: yes - patient notes improvement in his skin Current Affected Areas: shins, behind the ears, groin, face, arms, buttocks Improving Affected Areas: scalp, shins, behind the ears, arms, buttocks Worsening Affected Areas: N/A Total BSA involved: unknown Recent Skin Exacerbations/Flaring: yes - patient still has affected skin, but they are improving Recent Topical Corticosteroid Use: no Relapsing/Remitting Factors: no Patient-Reported Side Effects: no Recent Infections: no Patient Goals: Patient's specific desired goal: Patient would like to continue therapy as he has seen improvements in his affected areas. He would like to see complete clearing within 3-6 months Measured by: current affected skin Time-frame to meet goal: 3-6 months Is the patient on track to achieve goals of therapy? yes If no, what are the barriers and action plan to reach the goal: N/A Care Plan and Interventions: Care Plan Reviewed and Approved by both Pharmacist and Patient: Yes Did Care Plan Change? No Interventions (if applicable): No Patient experienced change in condition that affects treatment: no Additional care/services needed: no Educational information or adherence tools provided: Yes Additional equipment/supplies required: no Counseling: Utilizing appropriate injection technique: yes - patient confirms proper injextion technique Rotation of Injection Sites: Yes Room Temperature Medication at Time of Injection: Yes Pharmacist follow-up needed: Yes Patient Satisfaction with Care/Services Provided: Yes Informed patient of specialty pharmacy services: Yes -Patient received welcome packet: Yes Date Received: 01/11/2019 Delivery Method: mail -Patient returned signed Rights & Responsibilities: Yes Date Received: 08/22/2019 (will send with next fill) Delivery Method: mail -Patient is aware a licensed pharmacist is available 24 hours a day, 7 days a week to discuss medication-related questions or concerns: Yes -Patient verbalizes understanding of education on the common side effect profile of the medication: Yes -The patient is able to call 911 or seek urgent care if signs/symptoms of allergy or harmful adversereactions occur: Yes Patient Satisfaction with Therapy: yes - patient notes improvement in his skin Patient understands no changes to current drug regimen were made at the appointment and that [facility] is providing recommendations (summary located at top of note) for provider review and follow up. Jovana Zamora RPH 04/08/20 11:19 AM documented in this encounter Plan of Treatment Upcoming Encounters Date Type Specialty Care Team Description 03/27/2022 Appointment Radiology Harjeet Castorena MD [facility] [place], [place] [address] (Wo rk) 03/27/2022 Office Visit [facility] Greer Castorena MD [facility] [place], [place] [address] (Wo rk) documented as of [...] on filedocumented in this encounter Care Teams Garbage Collector Supervisor Relationship Specialty Start Date End Date Glendy Cohen MD PCP - General 08/12/12 [address] [place] [address] documented as of this encounter
--- OUTSIDE RECORDS SUMMARY | 2022-01-31 15:46 | XMS_ITS | Encounter Summary ---
:1980 Author Organization [facility] [place] [address] Care Team Providers Name Role Phone Glendy Cohen MD Primary Care Provider Reason for Visit Reason Onset Date Comments Prior Authorization 01/03/2019 Humira Encounter Details Date Type Department Care Team Description 01/03/2019 Telephone Pharmacy at [facility] Reid Stover Prior Authorization [facility] [place] [phone] Social History Tobacco Use Types Packs/Day Years Used Date Former Smoker Cigarettes 0.5 11 Smokeless Tobacco: Never Used Comments: avs information given Alcohol Use Standard Drinks/Week Comments Yes 3 (1 standard drink = 0.6 oz pure alcoho l) 24oz [place] hard lemonade Alcohol Habits Answer Date Recorded How often do you have a drink containing Not asked alcohol? How many drinks containing alcohol do you have Not asked on a typical day when you are drinking? How often do you have six or more drinks on Not asked one occasion? Comment: 24oz [place] hard lemonade 10/30/2017 Sex Assigned at Date Recorded Not on file documented as of this encounter Miscellaneous Notes Telephone Encounter - Reid Stover - 01/05/2019 8:29 AM EDT [facility], Prior Authorization Approval Medication Name: Humira Pen 40mg/0.8mL PNKT FILLABLE AT [facility]? yes APPROVAL DATES: 01/04/2019 - 02/04/2019 ( Loading ) 01/31/2019 - 04/05/2019 ( Maintenance ) SPECIFIC INS REQUIREMENT: Can fill with Pharmacy CASE/REFERENCE # [id number] ( Loading ) [id number] ( Maintenance ) APPROVAL NOTIFICATION RECEIVED VIA: Fax COPAY: $3.00 COPAY ASSISTANCE NEEDED?: No NOTES: Approval letters indexed to patient's scan docs. Telephone Encounter - Reid Stover - 01/04/2019 8:26 AM EDT [facility], Prior Authorization Denial Medication Name: Humira Pen 40mg/0.8mL PNKT Case/Reference #: [id number] Denial Summary: Must trial and fail two different categories of therapy, at least 2 topical and one oral systemic agent. Patient Notified of Denial: Yes Additional Information from Insurance carrier. Please see below: Denial letter indexed to the patient's scan docs. For any questions relating to this denial please reach out directly to your section???s specialty pharmacist, or the specialty pharmacy team at [facility] Telephone Encounter - Reid Stover - 01/03/2019 2:47 PM EDT [facility], Medication Prior Authorization Patient: Jose Enrique Mcbride Patient : 1980 Patient Address: [address] [address] (home) Medication: Humira 40mg/0.8mL PNKT Subscriber Insurance: [place] Medicaid Physician: Carlos Pedroza Sent Via: Fax Holly: Gaye/Stuart/MAKENZIE#: Medication Strength Frequency Requested: Humira 40mg/0.8mL PNKT, Inject the contents of two syringes(80mg) subcutaneously on day 1, then inject the contents of one syringe (40mg) subcutaneously every 2 weeks starting on day 7. Qty/Day Supply: New Start: Yes Diagnosis & ICD-10 Code: Psoriasis L40.9 documented in this encounter Plan of Treatment Upcoming Encounters Date Type Specialty Care Team Description 03/27/2022 Appointment Radiology Harjeet Castorena MD [facility] [place], [place] [address] (Wo rk) 03/27/2022 Office Visit [facility] Greer Castorena MD [facility] [place], [place] [address] (Wo rk) documented as of [...] on filedocumented in this encounter Care Teams Airline Pilot/First Officer Relationship Specialty Start Date End Date Glendy Cohen MD PCP - General 08/12/12 [facility] [address] [place] [address] documented as of this encounter
--- OUTSIDE RECORDS SUMMARY | 2022-01-31 15:46 | XMS_ITS | Encounter Summary ---
:1980 Author Organization [facility] Address [address] [place] [address] Care Team Providers Name Role Phone Glendy Cohen MD Primary Care Provider Encounter Details Date Type Department Care Team Description 01/15/2018 [facility] En[place] [facility] [place] Hornin Closed nondisplaced [address] Su [place] fracture of fourth [place], [place] [phone] C[place] with routine healing, [facility] unspecified fracture [place], [place] morphology, [id number] subsequent encounter Social History Tobacco Use Types Packs/Day Years Used Date Former Smoker Cigarettes 0.5 11 Smokeless Tobacco: Never Used Comments: avs information given Alcohol Use Standard Drinks/Week Comments Yes 3 (1 standard drink = 0.6 oz pure alcoho l) 24oz [address] hard lemonade Alcohol Habits Answer Date Recorded How often do you have a drink containing Not asked alcohol? How many drinks containing alcohol do you have Not asked on a typical day when you are drinking? How often do you have six or more drinks on Not asked one occasion? Comment: 24oz [address] hard lemonade 10/30/2017 Sex Assigned at Date Recorded Not on file documented as of this encounter Medications at Time of Discharge Medication Sig Dispensed Refills Start Date End Date methadone (METHADOSE) 10 Take 115 mg by [...] 12/25/2021 mg Tablet mouth every 6 hours. cyclobenzaprine (FLEXERIL) Take 10 mg by 0 02/17/2018 10 mg tablet mouth 3 times daily as needed. documented as of this encounter Plan of Treatment Upcoming Encounters Date Type Specialty Care Team Description 03/27/2022 Appointment Radiology Harjeet Castorena MD [facility] [place], [place] [address] (Wo rk) 03/27/2022 Office Visit [facility] Greer Castorena MD [facility] [place], [place] [address] (Wo rk) documented as of this encounter Procedures Procedure Name Priority Date/Time Associated Diagnosis Comme nts XR CERVICAL SPINE 2 Routine 01/15/2018 9:33 AM Closed nondispl aced Results for this OR 3 VIEWS EDT fracture of fourth procedure are in cervical vertebra the result s with routine healing, sectio n. unspecified fracture morphology, subsequent encounter documented in this encounter Results XR Cervical Spine 2 Or 3 Views (01/15/2018 9:33 AM EDT) Anatomical Region Laterality Modality C-spine N/A Digital Radiography Specimen (Source) Anatomical Location Collection Method / Collectio n Time Received Time / Laterality Volume Impressions 01/15/2018 10:17 AM EDT FINDINGS/IMPRESSION: No evidence of instability on the extens ion view. There is trace retrolisthesis of C6 on C7 with flexion. Avulsion fract ure of the inferior C4 endplate again noted and is unchanged in alignment. No new fractures noted on these lateral views. The vertebral body heights and in tervertebral disc spaces are unchanged. The prevertebral soft tissues are unrema rkable. Narrative 01/15/2018 10:17 AM EDT EXAMINATION: XR CERVICAL SPINE 2 OR 3 VIEWS CLINICAL HISTORY: lateral flex/ext xrays . ??f/u s/p C4, C7 fxs. TECHNIQUE: Lateral flexion/extension views of the c ervical spine COMPARISON: AP and lateral cervical spine radiograph s 12/04/17 Procedure Note Alejo Shay MD - 01/15/2018Format ting of this note might be different from the original. EXAMINATION: XR CERVICAL SPINE 2 OR 3 EWS CLINICAL HISTORY: lateral flex/ext xrays . f/u s/p C4, C7 fxs. TECHNIQUE: Lateral flexion/extension views of the c ervical spine COMPARISON: AP and lateral cervical spine radiograph s 12/04/17 IMPRESSION FINDINGS/IMPRESSION: No evidence of instability on the extens ion view. There is trace retrolisthesis of C6 on C7 with flexion. Avulsion fract ure of the inferior C4 endplate again noted and is unchanged in alignment. No new fractures noted on these lateral views. The vertebral body heights and in tervertebral disc spaces are unchanged. The prevertebral soft tissues are unrema rkable. Otilio Horn MD IMG DX ORDERABLES documented in this encounter Visit Diagnoses Diagnosis Closed nondisplaced fracture of fourth c ervical vertebra with routine healing, unspecified fracture morphology, subsequ ent encounter documented in this encounter Care Teams Sheep Sticker Relationship Specialty Start Date End Date Glendy Cohen MD PCP - General 08/12/12 [address] [place] [address] documented as of this encounter
--- OUTSIDE RECORDS SUMMARY | 2022-01-31 15:46 | XMS_ITS | Encounter Summary ---
:1980 Author Organization [facility] [place] [address] Care Team Providers Name Role Phone Glendy Cohen MD Primary Care Provider Encounter Details Date Type Department Care Team Description 06/12/2020 Ancillary Procedure Radiology Library at [facility], Mike Shabazz [facility] [place] [address] [place] [address] [place], [place] [address] (Wo rk) Social History Tobacco Use Types Packs/Day Years Used Date Former Smoker Cigarettes 0.5 11 Smokeless Tobacco: Never Used Comments: avs information given Alcohol Use Standard Drinks/Week Comments Yes 3 (1 standard drink = 0.6 oz pure alcoho l) 24oz [place] hard lemonade Alcohol Habits Answer Date Recorded How often do you have a drink containing Not asked alcohol? How many drinks containing alcohol do you have Not asked on a typical day when you are drinking? How often do you have six or more drinks on Not asked one occasion? Comment: 24oz [place] hard lemonade 10/30/2017 Sex Assigned at Date Recorded Not on file documented as of this encounter Plan of Treatment Upcoming Encounters Date Type Specialty Care Team Description 03/27/2022 Appointment Radiology Harjeet Castorena MD [facility] [place], [place] [address] (Wo rk) 03/27/2022 Office Visit [facility] Greer Castorena MD [facility] C[facility] [place], [place] [address] (Wo rk) documented as of [...] Name Priority Date/Time Associated Diagnosis Comme nts FILM LIBRARY Routine 06/12/2020 2:30 AM Results f or this STORAGE ONLY CT EST procedure ar e in ABDOMEN AND PELVIS the resul ts section. documented in this encounter Results Film Library- Storage Only CT Abdomen & Pelvis (06/12/2020 2:30 AM EST) Specimen (Source) Anatomical Location Collection Method / Collectio n Time Received Time / Laterality Volume Narrative [facility] [place] - 06/12/2020 2:30 AM EST This exam is auto-finalizing. It's purpo se is for storage only. Geovani Dubois MD IMG FILM LIBRARY ORDERABLES Performing Organization Address City/State/ZIP Code Phon e Number [place], [place] documented in this encounter Visit Diagnoses Not on filedocumented in this encounter Care Teams Fitness Plan Coordinator Relationship Specialty Start Date End Date Glendy Cohen MD PCP - General 08/12/12 [address] [place] [address] documented as of this encounter
--- OUTSIDE RECORDS SUMMARY | 2022-01-31 15:46 | XMS_ITS | Encounter Summary ---
:1980 Author Organization [facility] [address] Care Team Providers Name Role Phone Glendy Cohen MD Primary Care Provider Reason for Visit Reason Comments Medication Management Patient Education Encounter Details Date Type Department Care Team Description 01/05/2019 Specialty [place] [facility] [place]dalene Le [facility] GORGE Hassan [facility] t; [place] [phone] Social History Tobacco Use Types Packs/Day Years [...] drinks on Not asked one occasion? Comment: [place] Sima hard lemonade 10/30/2017 Sex Assigned at Date Recorded Not on file documented as of this encounter Progress Notes Sonya Le RPH - 01/05/2019 3:52 PM EDT Specialty Pharmacy Consultation; Sonya Le RPH Comprehensive Medication Management (CMM) Jose Enrique Mcbride Diagnosis: Psoriasis Therapy Start Date: TBD Contact in person or via telephone:Telephone Mr. Jose Enrique Mcbride is a 38 y.o. (1980) male who was contacted in regard to specialty medication. Spoke with patient regarding Humira . A review of the medication therapy was performed. The medication was Filled as scheduled but was out of stock so it's being ordered and will be sent to the patient once it's received by the pharmacy. All medication related questions and concerns were addressed.The specialty pharmacy staff will follow up with the patient 5-7 days prior to next refill. Is the patient willing to proceed with the Clinical Assessment? Yes Summary and Recommendations: Jose Enrique was contacted today for a Humira new start. His allergies/medications/medical history were reviewed. He currently has psoriatic lesions on his shins, knees, forearm, abdomen, and groin area. He is currently experiencing a flare up and is using topical steroids. He is not aware of any remitting/relapsing factors and his goal is to reduce the lesions by 50% in the next 3-6months. We discussed Humira administration, side effects, what to monitor for, and proper storage/handling. I have no recommendations at this time. Clinic follow-up needed: no Allergies and Drug intolerance: Allergies Allergen Reactions ??? Clindamycin Rash ??? Nsaids (Non-Steroidal Anti-Inflammatory Drug) History of ulcers Special Dietary or Hydration Requirements: no There is no height or weight on file to calculate BMI. Medication Reconciliation Discrepancies (compared to [facility] med list) -no Medication Adherence Demonstrates understanding of importance of adherence: yes Informant: patient Reliability of informant: reliable Provider-estimated medication adherence level: 90-100% Reasons for non-adherence: no problems identified Adherence tools used: directed education Support network for adherence: healthcare provider Confirmed plan for next specialty medication refill: delivery by pharmacy Refills needed for supportive medications: not needed Medication List: Current Outpatient Medications Medication Sig Dispense Refill ??? Adalimumab 40 mg/0.8 mL Pen Injector Kit Inject 80mg (2 pens) subcutaneously on day 1, then inject 40mg (1 pen) every 2 weeks starting on day 7. 4 Pen 3 ??? secukinumab (COSENTYX, 2 [...] and 4, then every 12 weeks thereafter. 1 Syringe 5 ??? halobetasol (ULTRAVATE) 0.05 % Cream Apply to the affected areas on the arms, legs, back for 3 weeks. Take one week off before repeating. 50 g 3 ??? calcipotriene (DOVONEX) 0.005 % Cream Apply to the affected area on the groin twice daily till clear. Can use twice daily in the ears on Q-tip till clear 60 g 3 ??? ketoconazole (NIZORAL) 2 % Cream Apply to to the affected areas on the hand twice daily. Apply under occulusion with glove at night for 2-3 hours. 30 g 2 ??? ustekinumab (STELARA) 45 mg/0.5 mL Syringe Starter pack 45mg SC on day 0 and then 4 weeks later.2 Syringe 0 ??? ustekinumab (STELARA) 45 mg/0.5 mL Syringe Inject 0.5 mLs subcutaneously Q 3 Months. 1 Syringe 3 ??? cyclobenzaprine (FLEXERIL) 10 [...] beneficiary Provider: plan sponsor pharmacist [place] [facility] [place] Method of Contact: by telephone Cognitive Ability: good Cognitive Impairment Status Verified this Year: no Drug Interactions Provided the patient with educational material regarding drug interactions: yes Patient Counseling Counseled the patient on the following: reviewed medication changes since last visit, medication safety precautions education provided, drug interaction education provided to patient, doses and administration discussed, safe handling, storage, and disposal discussed, possible adverse effects and management discussed, possible drug and prescription drug interactions discussed, possible drug and OTC drug and food interactions discussed, lab monitoring and follow-up discussed, therapeutic rationale discussed, cost of medications and cost implications discussed, adherence and missed doses discussed, pharmacy contact information discussed, health goals discussed, monitoring medication discussed, reminder to refill or picker and packer medication discussed, self-monitoring discussed, start medication discussed, timing of medications discussed, vaccination discussed Drug Medication Management Summary Topics discussed: reviewed medication changes since last visit, medication safety precautions education provided, drug interaction education provided to patient, doses and administration discussed, safe handling, storage, and disposal discussed, possible adverse effects and management discussed, possible drug and prescription drug interactions discussed, possible drug and OTC drug and food interactions discussed, lab monitoring and follow-up discussed, therapeutic rationale discussed, cost of medications and cost implications discussed, adherence and missed doses discussed, pharmacy contact information discussed, health goals discussed, monitoring medication discussed, reminder to refill or picker and packer medication discussed, self-monitoring discussed, start medication discussed, timing of medications discussed, vaccination discussed Time spent: 1-15 min Treatment Outcomes No data found in [...] and mitigation strategies, and interruptions in therapy: No Physical Assessment: Functional limitations identified: no Cognitive limitations identified: no Concern regarding orientation/memory: no Concern with reasoning/judgement: no Is patient a fall risk: no Other needed information: no Social Assessment: Does the patient have a primary director of managed care? no Patient has emergency contact on file: Yes Does patient need referral to vp digital marketing social media and crm: No Does patient need referral to advocacy group: No Physical and Home Health Assessment: Is the patient able to store their medication as directed? Yes Is the patient in a safe home environment? Yes Do you have a support network? Yes Reviewed potential home safety hazards: Yes Economic Assessment: Patient is agreeable to medication copay: Yes Copay Amount: $3.00 Day Supply: 35 Date Needed: week of 01/10 Copay assistance required: no Therapy Assessment: Current Medication Dosing/Route/Frequency: Humira PNKT 40mg/0.8ml. Inject the contents of 2 pens (80mg) subcutaneously on day 1. Then inject contents of 1 pen (40mg) on day 7. Then inject 1 pen every 14 days thereafter. Appropriate Therapy: No Current Affected Areas: shins, knees, forearm, abdomen, groin Total BSA involved: 8% Recent Skin Exacerbations/Flaring: yes - currently Recent Topical Corticosteroid Use: Yes Relapsing/Remitting Factors: no Diagnosis of Psoriatic Arthritis: No Expected Outcome: Reduction in psoriatic lesions Patient's goals: Goals ??? Home Medication Compliance and Understanding To see at least a 50% reduction in psoriatic lesions within 3-6months Care Plan Reviewed and Approved by both Pharmacist and Patient: Yes Patient's Problems/Needs: Resolution of psoriatic lesions Monitoring requirements for prescribed medication: CBC/Quantiferon/HepB/Infection occurrence Interventions (if applicable): No Educational information or adherence tools provided: Yes Additional equipment/supplies required: sharps container Pharmacist follow-up needed: Yes Informed patient of specialty pharmacy services: Yes -Patient will be provided with welcome packet: Yes Date to be provided: TBD Delivery Method: Mail -Patient will be provided with Rights & Responsibilities: Yes Date to be provided: TBD Delivery Method: Mail -Patient is aware a licensed pharmacist is [...] were made at the appointment and that [facility] is providing recommendations (summary located at top of note) for provider review and follow up. Sonya Le RPH 01/05/19 3:57 PM documented in this encounter Plan of Treatment Upcoming Encounters Date Type Specialty Care Team Description 03/27/2022 Appointment Radiology Harjeet Castorena MD [facility] [place] [address] (Wo rk) 03/27/2022 Office Visit [facility] Greer Castorena MD [facility] DR [facility] [place], [place] [address] (Wo rk) documented as of [...] on filedocumented in this encounter Care Teams Fire Dispatcher Relationship Specialty Start Date End Date Glendy Cohen MD PCP - General 08/12/12 [address] [place] [address] documented as of this encounter
--- OUTSIDE RECORDS SUMMARY | 2022-01-31 15:46 | XMS_ITS | Encounter Summary ---
:1980 Author Organization [facility] [place] [address] Care Team Providers Name Role Phone Glendy Cohen MD Primary Care Provider Reason for Referral Consultation (Routine) - Closed Specialty Diagnoses / Procedures Referred By Contact Refer red To Contact Gastroenterology Diagnoses RUQ pain Choledocholithiasis Siva Rothman MD [facility] [place] Gastro 4l [facility] D [facility] [place] [address] [place] [address] Fax: Referral ID Status Reason Start Date Expiration Date Visits V isits Requested Authorized [id number] Closed Consult, 07/25/2020 07/25/2021 1 1 Test & Treat Encounter Details Date Type Department Care Team Description 07/25/2020 Orders Only Gastroenterology at [facility] [place] Siva Rothman RUQ pain; [facility] Odalys [place]abazz [place] [address] [facility] [phone] CENTER GASTROENTEROLOGY [place], [place] [address] Social History Tobacco Use Types Packs/Day Years [...] Description 03/27/2022 Appointment Radiology Harjeet Castorena MD [facility] SPINE [facility] [place], [place] [address] (Wo rk) 03/27/2022 Office Visit [facility] Greer Castorena MD [facility] DR SPINE [place], [place] [address] (Wo rk) Scheduled Referrals Name Type Priority Associated Order Schedule Diagnoses Referral to Outpatient Routine RUQ pain Ordered: Gastroenterology Referral Choledocholithiasi 07/25 s documented as of this encounter Goals Goal [...] as of this encounter Visit Diagnoses Diagnosis RUQ pain Abdominal pain, right upper quadrant Choledocholithiasis Calculus of bile duct without mention of cholecystitis or obstruction documented in this encounter Care Teams Nude Model Relationship Specialty Start Date End Date Glendy Cohen MD PCP - General 08/12/12 [address] [place] [address] documented as of this encounter
--- OUTSIDE RECORDS SUMMARY | 2022-01-31 15:46 | XMS_ITS | Encounter Summary ---
:1980 Author Organization [facility] [place] [address] Care Team Providers Name Role Phone Glendy Cohen MD Primary Care Provider Reason for Visit Reason Onset Date Comments Prior Authorization 03/21/2019 Stelara Encounter Details Date Type Department Care Team Description 03/21/2019 Telephone Pharmacy at [facility] Reid Stover Prior Authorization [facility] [address] Social History Tobacco Use Types Packs/Day Years Used Date Former Smoker Cigarettes 0.5 11 Smokeless Tobacco: Never Used Comments: avs information given Alcohol Use Standard Drinks/Week Comments Yes 3 (1 standard drink = 0.6 oz pure alcoho l) 24oz [place] hard lemonade Alcohol Habits Answer Date Recorded How often do you have a drink containing Not asked alcohol? How many drinks containing alcohol do you have Not asked on a typical day when you are drinking? How often do you have six or more drinks on Not asked one occasion? Comment: 24oz [place] hard lemonade 10/30/2017 Sex Assigned at Date Recorded Not on file documented as of this encounter Miscellaneous Notes Telephone Encounter - Reid Stover - 03/21/2019 11:21 AM EST [facility], Prior Authorization Denial Medication Name: Stelara 45mg/0.5mL SOSY Case/Reference #: [id number] Denial Summary: Patient must trial and fail Humira and Cosentyx. Patient has only trialed and failedHumira. Patient Notified of Denial: Will try to get PA approved for Cosentyx ( existing RX available ) then will reach out to patient. Additional Information from Insurance carrier. Please see below: Denial letter has been indexed to the patient eD scan docs. For any questions relating to this denial please reach out directly to your section???s specialty pharmacist, or the specialty pharmacy team at [facility] Telephone Encounter - Reid Stover - 03/21/2019 10:21 AM EST [facility], Medication Prior Authorization Patient: Jose Enrique Mcbride Patient : 1980 Patient Address: [address] [address] (home) Medication: Stelara 45mg/0.5mL SOSY Subscriber Insurance: [place] Medicaid Physician: Carlos Pedroza Sent Via: Fax Holly: Ref/Case/PA#: Medication Strength Frequency Requested: Inject the contents of one syringe (45mg) subcutaneously onday 0 then 4 weeks later. Qty/Day Supply: 07/08 New Start: Yes Diagnosis & ICD-10 Code: L40.9 Psoriasis documented in this encounter Plan of Treatment Upcoming Encounters Date Type Specialty Care Team Description 03/27/2022 Appointment Radiology Harjeet Castorena MD [facility] [place], [place] [address] (Wo rk) 03/27/2022 Office Visit [facility] Sp[facility] Center Greer Castorena MD [facility] DR SPINE [facility] [place], [place] [address] (Wo rk) documented as of [...] on filedocumented in this encounter Care Teams Pack Mule Worker Relationship Specialty Start Date End Date Glendy Cohen MD PCP - General 08/12/12 [address] [place] [address] documented as of this encounter
--- OUTSIDE RECORDS SUMMARY | 2022-01-31 15:46 | XMS_ITS | Encounter Summary ---
:1980 Author Organization [facility] [place] [address] Care Team Providers Name Role Phone Gelndy Cohen MD Primary Care Provider Reason for Visit Reason Onset Date Comments Prior Authorization 03/21/2019 Cosentyx Encounter Details Date Type Department Care Team Description 03/21/2019 Telephone Pharmacy at [facility] Reid Stover Prior Authorization [facility] (Cosentyx ) [place] [address] Social History Tobacco Use Types Packs/Day Years Used Date Former Smoker Cigarettes 0.5 11 Smokeless Tobacco: Never Used Comments: avs information given Alcohol Use Standard Drinks/Week Comments Yes 3 (1 standard drink = 0.6 oz pure alcoho l) 24oz [place] hard lemonade Alcohol Habits Answer Date Recorded How often do you have a drink containing Not asked alcohol? How many drinks containing alcohol do you have Not asked on a typical day when you are drinking? How often do you have six or more drinks on Not asked one occasion? Comment: 24oz [place] hard lemonade 10/30/2017 Sex Assigned at Date Recorded Not on file documented as of this encounter Miscellaneous Notes Telephone Encounter - Reid Stover - 03/21/2019 4:04 PM EST - Specialty Pharmacy, Prior Authorization Approval Medication Name: Cosentyx ( 300mg Dose ) 150 SOSY FILLABLE AT [facility]? yes APPROVAL DATES: 03/21/2019 - 04/20/2019 SPECIFIC INS REQUIREMENT: Can fill with Pharmacy CASE/REFERENCE # [id number] APPROVAL NOTIFICATION RECEIVED VIA: Fax COPAY: $ 3.00 COPAY ASSISTANCE NEEDED?: NOTES: Telephone Encounter - Reid Stover - 03/21/2019 12:25 PM EST [facility], Medication Prior Authorization Patient: Jose Enrique Mcbride Patient : 1980 Patient Address: [address] [address] (home) Medication: Cosentyx ( 300mg Dose ) 150 SOSY Subscriber Insurance: [place] Medicaid Fax: Physician: Carlos Pedroza Sent Via: [facility] Holly: [id number] Ref/Case/PA#: Medication Strength Frequency Requested: Cosentyx ( 300mg Dose ) 150 SOSY, Inject the contents of two syringes ( 300mg ) subcutaneously every 7 days. Inject the contents of two syringes ( 300mg ) subcutaneously at weeks 0,1,2,3,4 and then Inject the contents of two syringes ( 300mg ) subcutaneously every 4 weeks thereafter. Qty/Day Supply: 03/07 New Start: Yes Diagnosis & ICD-10 Code: L40.9 Psoriasis documented in this encounter Plan of Treatment Upcoming Encounters Date Type Specialty Care Team Description 03/27/2022 Appointment Radiology Harjeet Castorena MD [facility] SPINE [place], [place] [address] (Wo rk) 03/27/2022 Office Visit [facility] Sp[facility] Greer Castorena MD [facility] SPINE [place], [place] [address] (Wo rk) documented as of this encounter [...] on filedocumented in this encounter Care Teams Stocking Inspector Relationship Specialty Start Date End Date Glendy Cohen MD PCP - General 08/12/12 [address] [place] [address] documented as of this encounter
--- OUTSIDE RECORDS SUMMARY | 2022-01-31 15:46 | XMS_ITS | Encounter Summary ---
:1980 Author Organization [facility] [place] [address] Care Team Providers Name Role Phone Glendy Cohen MD Primary Care Provider Encounter Details Date Type Department Care Team Description 06/13/2020 Telephone Gastroenterology at [facility] Nery Ulloa MD [facility] [place] [address] GASTROENTEROLOGY DEPT [phone] [place], [place] [address] (Wo rk) Social History Tobacco Use Types Packs/Day Years Used Date Former Smoker Cigarettes 0.5 11 Smokeless Tobacco: Never Used Comments: avs information given Alcohol Use Standard Drinks/Week Comments Yes 3 (1 standard drink = 0.6 oz pure alcoho l) 24oz Sima moroe lemonade Alcohol Habits Answer Date Recorded How [...] this encounter Miscellaneous Notes Telephone Encounter - Nery Ulloa MD - 06/13/2020 11:27 AM EST Patient update from provider at OSH. Patient continues to remain stable, afebrile and LFTs downtrending. RUQUS obtained which showed no stones, CBD 8mm. AST 105 ALT 115 TB 1.9 DB not obtained ALP 273 It's possible patient had a stone that has since passed, with downtrending TB/DB. He likely has multifactorial liver injury with alcoholic hepatitis as well. With this trajectory of improvement, timingof ERCP vs. EUS can be reassessed. Patient still withdrawing and would favor treating supportively for alcoholic hepatitis and for withdrawal before planning urgent endoscopy. Team will reach out when patient out of withdrawal window to re-assess role of ERCP. Nery Ulloa MD Gastroenterology PGY-4 06/13/2020 11:31 AM Pager #[phone] documented in this encounter Plan of Treatment Upcoming Encounters Date Type Specialty Care Team Description 03/27/2022 Appointment Radiology Harjeet Castorena MD [facility] [place] [id number] (Wo rk) 03/27/2022 Office Visit [facility] Sp[facility] Center Greer Castorena MD [facility] [place], [place] [address] (Wo rk) documented as [...] on filedocumented in this encounter Care Teams Casualty Claims Supervisor Relationship Specialty Start Date End Date Glendy Cohen MD PCP - General 08/12/12 [address] [place] [address] documented as of this encounter
--- OUTSIDE RECORDS SUMMARY | 2022-01-31 15:46 | XMS_ITS | Encounter Summary ---
:1980 Author Organization [facility] [place] [address] Care Team Providers Name Role Phone Glendy Cohen MD Primary Care Provider Encounter Details Date Type Department Care Team Description 07/23/2020 Ancillary Procedure Radiology Library [place] [address] [place] [address] [phone] Social History Tobacco Use Types Packs/Day Years Used Date Former Smoker Cigarettes 0.5 11 Smokeless Tobacco: Never Used Comments: avs information given Alcohol Use Standard Drinks/Week Comments Yes 3 (1 standard drink = 0.6 oz pure alcoho l) 24oz [place] hard lemonade Alcohol Habits Answer Date Recorded How often do you have a drink containing Not asked alcohol? How many drinks containing alcohol do you have Not asked on a typical day when you are drinking? How often do you have six or more drinks on Not asked one occasion? Comment: 24oz [place] hard lemonade 10/30/2017 Sex Assigned at Date Recorded Not on file documented as of this encounter Plan of Treatment Upcoming Encounters Date Type Specialty Care Team Description 03/27/2022 Appointment Radiology Harjeet Castorena MD [facility] SPINE [place], [place] [address] (Wo rk) 03/27/2022 Office Visit Pain and Spine Center Greer Castorena MD [facility] [place], [place] [address] (Wo rk) documented as of [...] Associated Diagnosis Comme nts FILM LIBRARY Routine 07/23/2020 12:00 AM Results for this STORAGE ONLY MR EDT procedure ar e in ABDOMEN the results section. documented in this encounter Results Film Library- Storage Only MR Abdomen (07/23/2020 12:00 AM EDT) Specimen (Source) Anatomical Location Collection Method / Collectio n Time Received Time / Laterality Volume Narrative [facility] - 07/24/2020 12:28 PM EDT This exam is auto-finalizing. It's purpo se is for storage only. Miranda Mccray MD IMG FILM LIBRARY ORDERABLES Performing Organization Address City/State/ZIP Code Phon e Number [place], [place] documented in this encounter Visit Diagnoses Not on filedocumented in this encounter Care Teams Seasonal Greenery Bundler Relationship Specialty Start Date End Date lGendy Cohen MD PCP - General 08/12/12 [address] [place] [address] documented as of this encounter
--- OUTSIDE RECORDS SUMMARY | 2022-01-31 15:46 | XMS_ITS | Encounter Summary ---
:1980 Author Organization [facility] [place] [address] Care Team Providers Name Role Phone Glendy Cohen MD Primary Care Provider Reason for Visit Reason Onset Date Comments Medication Management 03/21/2019 Encounter Details Date Type Department Care Team Description 03/21/2019 Telephone Pharmacy at [facility] Maude Edwards, [place] [address] Social History Tobacco Use Types Packs/Day Years Used Date Former Smoker Cigarettes 0.5 11 Smokeless Tobacco: Never Used Comments: avs information given Alcohol Use Standard Drinks/Week Comments Yes 3 (1 standard drink = 0.6 oz pure alcoho l) 24oz [place] hard lemonade Alcohol Habits Answer Date Recorded How often do you have a drink containing Not asked alcohol? How many drinks containing alcohol do you have Not asked on a typical day when you are drinking? How often do you have six or more drinks on Not asked one occasion? Comment: 24oz [place] hard lemonade 10/30/2017 Sex Assigned at Date Recorded Not on file documented as of this encounter Miscellaneous Notes Telephone Encounter - Maude Winkler, [facility] - 03/21/2019 8:10 AM EST Jose Enrique Mcbride 03/21/2019 Summary: Jose Enrique Mcbride 1980 called into the [...] over to Humira per insurance. The provider has approved re-initiating the PA process for Stel[facility] to see if the patient can get the alternative therapy covered and the Specialty Pharmacy will begin that process. Maude Cruz RPh 03/21/19 documented in this encounter Plan of Treatment Upcoming Encounters Date Type Specialty Care Team Description 03/27/2022 Appointment Radiology Harjeet Castorena MD [facility] [place], [place] [address] (Wo rk) 03/27/2022 Office Visit [facility] Greer Castorena MD [facility] [place], [place] [address] (Wo rk) documented as of [...] on filedocumented in this encounter Care Teams Urban Forester Relationship Specialty Start Date End Date Glendy Cohen MD PCP - General 08/12/12 [address] [place] [address] documented as of this encounter
--- OUTSIDE RECORDS SUMMARY | 2022-01-31 15:46 | XMS_ITS | Encounter Summary ---
:1980 Author Organization [facility] [place] [address] Care Team Providers Name Role Phone Glendy Cohen MD Primary Care Provider Reason for Visit Reason Comments Specialty Pharmacy Review Encounter Details Date Type Department Care Team Description 10/16/2020 Specialty Pharmacy Pharmacy at [facility] Phyllis Najera [facility] [place] [id number] Social History Tobacco Use Types Packs/Day Years Used Date Former Smoker Cigarettes 0.5 11 Smokeless Tobacco: Never Used Comments: avs information given Alcohol Use Standard Drinks/Week Comments Yes 3 (1 standard drink = 0.6 oz pure alcoho l) 24aaliyah [place] hard lemonade Alcohol Habits Answer Date Recorded How often do you have a drink containing Not asked alcohol? How many drinks containing alcohol do you have Not asked on a typical day when you are drinking? How often do you have six or more drinks on Not asked one occasion? Comment: 24oz [place] hard lemonade 10/30/2017 Sex Assigned at Date Recorded Not on file documented as of this encounter Progress Notes Phyllis Najera - 10/16/2020 11:59 PM EDT The [facility] has completed a benefits investigation for Jose Enrique Mcbride to review their eligibility to fill at [facility]. Per patient's medication list they are prescribed SECUKINUMAB 150 MG/ML and the medication is not able to be filled at the [facility]. documented in this encounter Plan of Treatment Upcoming Encounters Date Type Specialty Care Team Description 03/27/2022 Appointment Radiology Harjeet Castorena MD [facility] [address] [place] [address] (Wo rk) 03/27/2022 Office Visit [facility] Greer Castorena MD [facility] [place], [place] [address] (Wo rk) documented as of [...] on filedocumented in this encounter Care Teams Supervisor [employer] Relationship Specialty Start Date End Date Glendy Cohen MD PCP - General 08/12/12 [address] [place] [address] documented as of this encounter
--- OUTSIDE RECORDS SUMMARY | 2022-01-31 15:46 | XMS_ITS | Encounter Summary ---
:1980 Author Organization [facility] [place] [address] Care Team Providers Name Role Phone Glendy Cohen MD Primary Care Provider Encounter Details Date Type Department Care Team Description 07/25/2020 Orders Only G[place]enterology at [facility] Siva Rothman, [facility] [place] [address] [facility] [phone] GASTROENTEROLOGY DEPT [place], [place] [address] (Wo rk) Social History Tobacco Use Types Packs/Day Years Used Date Former Smoker Cigarettes 0.5 11 Smokeless Tobacco: Never Used Comments: avs information given Alcohol Use Standard Drinks/Week Comments Yes 3 (1 standard drink = 0.6 oz pure alcoho l) 24oz [place] hard lemonade Alcohol Habits Answer Date Recorded How often do you have a drink containing Not asked alcohol? How many drinks containing alcohol do you have Not asked on a typical day when you are drinking? How often do you have six or more drinks on Not asked one occasion? Comment: 24oz [place] hard lemonade 10/30/2017 Sex Assigned at Date Recorded Not on file documented as of this encounter Plan of Treatment Upcoming Encounters Date Type Specialty Care Team Description 03/27/2022 Appointment Radiology Harjeet Castorena MD [facility] [place], [place] [address] (Wo rk) 03/27/2022 Office Visit [facility] Greer Castorena MD [facility] [place], [place] [address] (Wo rk) documented as of [...] on filedocumented in this encounter Care Teams Weights And Measures Inspector Relationship Specialty Start Date End Date Glendy Cohen MD PCP - General 08/12/12 [address] [place] [address] documented as of this encounter
--- OUTSIDE RECORDS SUMMARY | 2022-01-31 15:46 | XMS_ITS | Encounter Summary ---
:1980 Author Organization [place] [address] Care Team Providers Name Role Phone Glendy Cohen MD Primary Care Provider Encounter Details Date Type Department Care Team Description 07/22/2021 Hospital Encounter XRay at [facility] Abdul, Antonina Cervical spondylosis [address] [place] [address] Dr Norberto APRN with radiculopathy [facility] [id number] [place] [phone] [place] [address] Social History Tobacco Use Types Packs/Day Years Used Date Current Every Day Smoker Cigarettes 0.5 11 Smokeless Tobacco: Never Used Comments: avs information given Alcohol Use Standard Drinks/Week Comments Yes 3 (1 standard drink = 0.6 oz pure alcoho l) 24oz [place] hard lemonade Alcohol Habits Answer Date Recorded How often do you have a drink containing Not asked alcohol? How many drinks containing alcohol do you have Not asked on a typical day when you are drinking? How often do you have six or more drinks on Not asked one occasion? Comment: 24oz [place] hard lemonade 10/30/2017 Sex Assigned at Date Recorded Not on file documented as of this encounter Medications at Time of Discharge Medication Sig Dispensed Refills Start Date End Date FLUoxetine (PROzac) 40 Take 40 mg by mouth 0 mg Capsule daily. amitriptyline (Elavil) 25 mg nightly. 0 1 25 mg Tablet FLUoxetine (PROzac) 10 Take 20 mg by mouth 0 mg Capsule daily. pantoprazole (PROTONIX) Take 40 mg by mouth 0 40 mg Tablet, Delayed daily. Release (E.C.) Betamethasone Valerate Apply topically as 0 0.12 % Foam needed. Selenium Sulfide 2.25 % Apply topically as 0 Shampoo needed. calcipotriene (DOVONEX) Apply to the affected 60 g 3 0 12/23/2018 0.005 % area on the groin CreamIndications: twice daily till Psoriasis clear. Can use twice daily in the ears on Q-tip till clear cyclobenzaprine Take 10 mg by mouth 3 0 (FLEXERIL) 10 mg Tablet times daily as needed for Muscle spasms. methadone (METHADOSE) Take 115 mg by mouth 0 10 mg/5 mL Solution daily. valACYclovir (VALTREX) Take 500 mg by mouth 2 0 500 mg tablet times daily. albuterol (PROVENTIL Inhale 2 puffs into 0 HFA;VENTOLIN HFA) 90 the lungs every 4 mcg/actuation inhaler hours as needed. Use with spacer apixaban (Eliquis) 5 mg Take 5 mg by mouth 2 0 12/25/2021 Tablet times daily. ketoconazole (NIZORAL) Apply to to the 30 g 2 08/19/19 20 08/08/2021 2 % CreamIndications: affected areas on the Tinea manus hand twice daily. Apply under occulusion with glove at night for 2-[address] Take 666 mg by mouth 3 0 08/08/2021 (Campral) 333 mg times daily. Tablet, Delayed Release (E.C.) Adalimumab 40 mg/0.8 mL Inject 80mg (2 pens) 4 Pen 3 08/08/2021 Pen Injector Kit subcutaneously on day 1, then inject 40mg (1 pen) every 2 weeks starting on day 7. secukinumab (COSENTYX, Inject 300 mg 10 mL 3 12/26/2018 08/08/2021 2 SYRINGES,) 150 mg/mL subcutaneously every 7 Syringe days. Inject the contents of 2 pens (300mg) at weeks 0, 1, 2, 3, 4 and every 4 weeks thereafter. ustekinumab (STELARA) Inject 0.5 mLs 1 Syringe 5 12/24/2018 08/08/2021 45 mg/0.5 mL Syringe subcutaneously Every 12 weeks. Start with 0.5mL (45mg) on week 0 and 4, then every 12 weeks thereafter. halobetasol (ULTRAVATE) Apply to the affected 50 g 3 0 12/23/2018 08/08/2021 0.05 % areas on the arms, CreamIndications: legs, back for 3 Psoriasis weeks. Take one week off before repeating. ustekinumab (STELARA) Starter pack 45mg SC 2 Syringe 0 12/0908/08/2021 45 mg/0.5 mL on day 0 and then 4 SyringeIndications: weeks later. Psoriasis ustekinumab (STELARA) Inject 0.5 mLs 1 Syringe 3 12/23/2018 08/08/2021 45 mg/0.5 mL subcutaneously Q 3 SyringeIndications: Months. Psoriasis acetaminophen (TYLENOL) Take 2 tablets by 30 tablet 0 10/2812/25/2021 500 mg Tablet mouth every 6 hours. documented as of this encounter Plan of Treatment Upcoming Encounters Date Type Specialty Care Team Description 03/27/2022 Appointment Radiology Harjeet Castorena MD [facility] [address] [facility] [place], [place] [address] (Wo rk) 03/27/2022 Office Visit [facility] Greer Castorena MD [facility] [place], [place] [address] (Wo rk) documented as of [...] Diagnosis Comme nts XR CERVICAL SPINE Routine 07/22/2021 12:29 Cervical spondylosi s Results for this 2 OR 3 VIEWS PM EDT with radiculopathy procedure are in the results section. documented in this encounter Results XR Cervical Spine 2 or 3 Views (07/22/2021 12:29 PM EDT) Anatomical Region Laterality Modality C-spine N/A Digital Radiography Specimen (Source) Anatomical Location Collection Method / Collectio n Time Received Time / Laterality Volume Impressions 07/22/2021 3:34 PM EDT 1. ??Multilevel degenerative disc disease of the cervical spine. No listhesis or dynamic instability. Thank you for letting us participate in the care of this patient. ??If you are a health care provider and have any questi ons regarding this report, please contact the number below. ??For patients who have questions please contact the health career coach that requested your imaging first. ? Narrative 07/22/2021 3:34 PM EDT EXAMINATION: XR CERVICAL SPINE 2 OR 3 VIEWS CLINICAL HISTORY: ap and lateral flexion and extension cervical spine 3 views (as entered by ordering provider in the order requisition) TECHNIQUE: AP, lateral flexion, lateral neutral, la teral extension views of the cervical spine. COMPARISON: MR the cervical spine 02/17/2018. Cervic al spinal radiograph 01/15/2018. FINDINGS: On the lateral views, spinal levels are seen down to C7. The anterior atlantodental interval is within normal limits in flexion and extension. There is no listhesis or abnormal motion in fl exion and extension. There is disc space narrowing at C5-6 and C6-7 with prominen t osteophytes at all levels between C4 and C7. Poor visualization of most of the cervic al levels on the AP view due to the overlying projection of the mandible. Procedure Note Deanna Perdue MD - 07/22/2021Formattin g of this note might be different from the original. EXAMINATION: XR CERVICAL SPINE 2 OR 3 EWS CLINICAL HISTORY: ap and lateral flexion and extension cervical spine 3 views (as entered by ordering provider in the order requisition) TECHNIQUE: AP, lateral flexion, lateral neutral, la teral extension views of the cervical spine. COMPARISON: MR the cervical spine 02/17/2018. Cervic al spinal radiograph 01/15/2018. FINDINGS: On the lateral views, spinal levels are seen down to C7. The anterior atlantodental interval is within normal limits in flexion and extension. There is no listhesis or abnormal motion in fl exion and extension. There is disc space narrowing at C5-6 and C6-7 with prominen t osteophytes at all levels between C4 and C7. Poor visualization of most of the cervic al levels on the AP view due to the overlying projection of the mandible. IMPRESSION 1. Multilevel degenerative disc disease of the cervical spine. No listhesis or dynamic instability. Thank you for letting us participate in the care of this patient. If you are a health care provider and have any questi ons regarding this report, please contact the number below. For patients w ho have questions please contact the health career coach that requested your imaging first. Antonina Abdul ARTIFICIAL STONE SETTER IMG DX ORDERABLES documented in this encounter Visit Diagnoses Diagnosis Cervical spondylosis with radiculopathy Cervical spondylosis with myelopathy documented in this encounter Care Teams Mine Shifter Relationship Specialty Start Date End Date Glendy Cohen MD PCP - General 08/12/12 [address] [place] [address] documented as of this encounter
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
--- OUTSIDE RECORDS SUMMARY | 2022-01-31 15:46 | XMS_ITS | Encounter Summary ---
:1980 Author Organization [facility] [place] [address] Care Team Providers Name Role Phone Glendy Cohen MD Primary Care Provider Reason for Visit Reason Comments Psoriasis Consultation (Routine) - Specialty Diagnoses / Procedures Referred By Contact Refer red To Contact Dermatology Diagnoses Psoriasis, unspecified PSORIASIS Glendy Cohen MD [facility] Dermatology [address] [place] [address] [place] [id number] Referral ID Status Reason Start Date Expiration Date Visits V isits Requested Authorized [id number] Consult, 11/03/2018 02/03/2019 6 6 Test & Treat [facility] Encounter Details Date Type Department Care Team Description 12/23/2018 Office Visit Dermatology at [facility] Carlos Pedroza T inea manus; Ricky HAMMOND High risk medication use; [address] [facility] [place] [address] [facility] [place], [place] [address] Social History Tobacco Use Types Packs/Day Years Used Date Former Smoker Cigarettes 0.5 11 Smokeless Tobacco: Never Used Comments: avs information given Alcohol Use Standard Drinks/Week Comments Yes 3 (1 standard drink = 0.6 oz pure alcoho l) 24oz [place] hard lemonade Alcohol Habits Answer Date Recorded [...] on file documented as of this encounter Patient Instructions Patient InstructionsElizabeth Cardenas LPN - 12/23/2018 10:00 AM EDT Plan for Arron: For the Psoriasis: Rx: Halobetasol -Apply to the affected areas on the arms, legs, back for 3 weeks. Take one week off before repeating. Rx: Dovonex Cream- Apply to the affected area on the groin twice daily till clear. Can use twice daily in the ears on Q-tip till clear For the Tinea: Start Ketoconazole- Apply to to the affected areas on the hand twice daily. Apply under occulusion with glove at night for 2-3 hours Return to clinic: pending approval of shot for psoriasis documented in this encounter Progress Notes Carlos Pedroza - 12/23/2018 10:00 AM EDT Images from the original note were not included. DERMATOLOGY - NEW PATIENT NOTE Date of service: 12/23/2018 Jose Enrique Mcbride : 1980, 38 y.o. Chief Complaint: Chief Complaint Patient presents with ??? Psoriasis HPI: Jose Enrique Mcbride is a 38 y.o. male referred by Glendy Cohen with the following concerns: Rash on his bilateral shins, right forearm, abdomen & scalp. He also gets flares on his buttocksand groin sometimes. He has had this condition for about 1.[address] Cohen believes this condition to be psoriasis. He is currently using two steroid cream, but is unsure which creams. Denies family hx of psoriasis. Notes spot on back improve with exposure to light Relevant Skin History: - Okay to leave detailed message with results? Yes - Skin cancer (including type): No - ? Psoriasis Family History: Melanoma: No Relevant Social History: - Marital Status: Single -Lives in [facility]. -Unemployed- [employer] Meds: Current Outpatient Medications Medication Sig Dispense Refill ??? cyclobenzaprine (FLEXERIL) 10 mg Tablet Take [...] No current facility-administered medications for this visit. Allergies: Allergies Allergen Reactions ??? Clindamycin Rash ??? Nsaids (Non-Steroidal Anti-Inflammatory Drug) History of ulcers Review of Systems: - General: Feels well. - Skin: No other skin concerns. Examination: - Constitutional: Patient was alert, well-appearing and in no noticeable distress. - Skin: Skin examination of the scalp, face, ears, neck, back, chest, axillae, abdomen, right and left upper extremities, right and left lower extremities, hands, feet, and buttocks was normal with theexception of the findings listed below. Genitalia examined. - A female nurse was present and on standby during my examination. Diagnosis/Skin findings/Assessment/Plan: 1. Psoriasis-Chilili scaly plaques on th right bilateral shins, knee, right forearm, abdomen, penis andintergluteal cleft -BSA 8% with genital involvement. Plan: Rx: Halobetasol - Apply to the affected areas on the arms, legs, back for 3 weeks. Take one week offbefore repeating. -Rx: Dovonex Cream- Apply to the affected area on the groin twice daily till clear. Can use twice daily in the ears on Q-tip till clear -Joint decision to proceed with Stelara Initiation. Plan: Baseline Labs CBC, CMP, Hep B, Hep C, and quantiferon Gold for TB; if labs WNL will start ustekinumab; The first 2 injections are at 0 weeks and 4 weeks, then injections are every 12 weeks -ustekinumab is an antibody which blocks IL-12 and IL-23, a different molecular target in inflammation than in other biologic medications. Discussed efficacy profile of 80% responding to achieve clearance of PASI 75. - we discussed the side effect profile of ustekinumab, theoretical increase in the risk of infections and malignancy If not acheving complete response in 3 months can consider increasing to 90mg SC RX: 45mg SC injection day 0 and then in 4 weeks Maintenance dose 45mg SC Q12 weeks 2 Tinea Manum- Right hand pink patches with overlying hyperkeratosis -PERICO scraping on the right palmar surface was positive today. Start Rx: Ketoconazole cream- Apply to to the affected areas on the hand twice daily. Apply under occulusion with glove at night for 2-3 hours. RTC: Pending [facility] Approval for teaching. Note initiated by Elizabeth Cardenas LPN. I, Elizabeth Cardenas LPN, have performed the documentation for this encounter in the presence of andacting as a scribe for Carlos Pedroza MD. I performed the services which were documented by the scribe, and I agree with the accuracy of the documentation in this encounter. Carlos Pedroza MD Reviewed and signed by Carlos Pedroza MD Resident in Dermatology [facility] Patient seen in conjunction with staff furnace hand: Neto Campos MD Section of Dermatology [facility] Dino Campos III, MD - 12/23/2018 10:00 AM EDT I directly supervised Dr. Carlos Wright during this office visit. Dr. Pedroza presented the historyand physical exam to me. I then saw and examined this patient with him. We reviewed the history and pertinent details and I confirmed the physical findings. I agree with the details of the history and physical exam as documented in Dr. Chino's note. Dino Campos MD Staff Physician documented in this encounter Plan of Treatment Upcoming Encounters Date Type Specialty Care Team Description 03/27/2022 Appointment Radiology Harjeet Castorena MD [facility] MED[facility] [place], [place] [address] (Wo rk) 03/27/2022 Office Visit [facility] Greer Castorena MD [facility] [place], [place] [address] (Wo rk) documented as of this encounter Procedures Procedure Name Priority Date/Time Associated Comments Diagnosis QUANTIFERON-TB GOLD Routine 12/23/2018 11:38 High risk Resu lts for this AM EDT medication use procedure are in the results section. HEMOGRAM Routine 12/23/2018 11:38 High risk Results for this AM EDT medication use procedure are in the results section. DIFFERENTIAL, Routine 12/23/2018 11:38 High risk Results fo r this AUTOMATED AM EDT medication use procedure are in the results section. HEPATITIS C ANTIBODY Routine 12/23/2018 11:38 High risk Res ults for this AM EDT medication use procedure are in the results section. HEPATITIS B SURFACE Routine 12/23/2018 11:38 High risk Resu lts for this ANTIBODY AM EDT medication use procedure are in the results section. HEPATITIS B SURFACE Routine 12/23/2018 11:38 High risk Resu lts for this ANTIGEN AM EDT medication use procedure are in the results section. CBC (WITH DIFF) Routine 12/23/2018 11:38 High risk AM EDT medication use COMPREHENSIVE Routine 12/23/2018 11:38 High risk Results fo r this METABOLIC PANEL AM EDT medication use procedure are in (NON-FASTING) the results section. documented in this encounter Results Differential, Automated (12/23/2018 11:38 AM EDT) P athologist Signature Neutrophils % 75.6 % [facility]OR[facility] Neutr Abs (ANC) 5.15 1.70 - [facility] 6.10 [facility] x10(3)/[facility] LABORATORY Lymphocytes % 16.9 % [facility] Lymphocytes Abs 1.2 0.9 - 3.2 [facility] x10(3)/[facility] LABORATORY Monocytes % 5.1 % [facility] Monocyte Abs 0.4 0.3 - 0.9 [facility] x10(3)/[facility] LABORATORY Eosinophils % 1.6 % [facility] Eosinophils Abs 0.1 0.0 - 0.4 [facility] x10(3)/[facility] LABORATORY Basophils % 0.4 % [facility] Basophils Abs 0.0 0.0 - 0.1 [facility] x10(3)/[facility] LABORATORY Immature Gran % 0.40 % [facility] Comment: Immature granulocytes(IG's)percentage an d absolute count will include metamyelocytes, myelocytes, and promyelo cytes. Blood smears from CBCs yielding IG's will be scanned manually for concor dance. If this scan disagrees with the automated IG or if promyelocytes are not ed, a manual differential will be performed. Lor Gran Abs 0.03 0.00 - 0.04 x10(3)/[facility] LABORATORY Specimen Anatomical Collection Method Collection Time Receive d Time (Source) Location / / Volume Laterality Blood specimen 12/23/2018 11:38 9 (specimen) AM EDT 12:54 PM EDT Resulting Agency Comment Spec In Lab Carlos Pedroza MD HEMATOLOGY ORDERABLES Performing Organization Address City/State/[place] [address] (ABNORMAL) Hemogram (12/23/2018 11:38 AM EDT) Analysis Performed At Patho logist Time Signature WBC 6.8 4.0 - 9.5 [facility] x10(3)/[facility] LABORATORY RBC 4.39 (L) 4.58 - [facility] 5.54 [facility] x10(6)/[facility] LABORATORY Hemoglobin 14.7 13.7 - [place] [place]AME 16.5 gm/dL [facility] Hematocrit 43.1 40.5 - [place] 48.5 % [facility] MCV 98.2 (H) 82.9 - [place] [address] [facility] LABORATORY MCH 33.5 (H) 27.5 - [place] MARINMA[place] 32.1 pg [facility] MCHC 34.1 32.0 - [facility] 35.7 gm/dL [facility] Platelets 287 145 - 357 [facility] x10(3)/[facility] LABORATORY RDWSD 49.6 (H) 36.0 - [place] [address] [facility] LABORATORY RDWCV 13.7 11.4 - [facility] [place] 13.8 % [facility] MPV 8.8 7.6 - 12.9 [facility] LABORATORY nRBC % Auto 0.0 % [facility] nRBC Abs Auto 0.000 0.000 - [facility] 0.000 [facility] x10(3)/[facility] LABORATORY Specimen Anatomical Collection Method Collection Time Receive d Time (Source) Location / / Volume Laterality Blood specimen 12/23/2018 11:38 9 (specimen) AM EDT 12:54 PM EDT Resulting Agency Comment Spec In Lab Carlos Pedorza MD HEMATOLOGY ORDERABLES Performing Organization Address City/State/[place] [address] QuantiFERON-TB Gold (12/23/2018 11:38 AM EDT) [facility] Method Time Signature QFT Nil 0.020 IU/mL [facility] QFT TB Ag1-Nil 0.000 IU/mL [facility] QFT TB Ag2-Nil -0.010 IU/mL [facility] QFT 9.850 IU/mL [facility] Mitogen-Nil [facility] Quantiferon TB Negative Negative [facility] Quantiferon TB M. tuberculosis infection NOT likely [place] Interp A negative specimen should h ave a TB1 Ag minus Nil value and TB2 Ag minus Nil [facility] value of less than 0.35 IU/mL OR a TB1 Ag minus Nil or TB2 Ag minus Nil value [facility] greater than or equal to 0.35 IU/mL AND a TB Ag minus Nil value from the same HOSPITAL tube of less than 25% of the Nil value. A negative spe cimen must also have a LABORATORY mitogen minus Nil value greater than or equal to 0.5 IU/mL. A negative QFT-Plus result d oes not preclude the possibility of M. tuberculosis infection. False negative re sults can occur due to stage of infection (specimen obtained prior to the development of immune response), co- morbid conditions which affect immune function, or other immunological factors . Comment: The performance of the QFT-Plus assay velásquez s not been extensively evaluated with specimens from the following individuals : Individuals who have impaired or altered immune functions, such as those who have HIV infection or AIDS, those who velásquez ve transplantation managed with immunosuppressive treatment or others wh o receive immunosuppressive drugs (e.g., corticosteroids, methotrexate, az athioprine, cancer chemotherapy), those who have other clinical conditions, such as diabetes, silicosis, chronic renal failure, and hematological disorders (e. g., leukemia and lymphomas), or those with other specific malignancies (e.g., carcinoma of the head or neck and lung). Individuals younger than age 17 years women. Diagnosis of, or the exclusion of tuberc ulosis disease, and assessment of Latent Tuberculosis Infection (LTBI) req uires a combination of epidemiological, historical, Medical and diagnostic findi ngs that should be taken into account when interpreting QFT-Plus results. Specimen Anatomical Collection Method Collection Time Receive d Time (Source) Location / / Volume Laterality Blood specimen 12/23/2018 11:38 9 7:17 (specimen) AM EDT AM EDT Resulting Agency Comment Spec In Lab Dino Campos III, MD CHEMISTRY ORDERABLES Performing Organization Address City/State/[place] [address] Comprehensive metabolic panel (non-fasting) (12/23/2018 11:38 AM EDT) athologist Signature Glucose Lvl 104 65 - 199 [facility] mg/dL [facility] Comment: Diabetes: >=200 mg/dL plus symp toms BUN 15 10 - 20 mg/dL [facility] Creatinine 1.04 0.80 - 1.50 mg/dL [facility] Sodium 137 135 - 145 mmol/L [facility] Potassium 4.7 3.5 - 5.0 mmol/L [facility] Comment: Please note: ??Patients with WBC >100,00 0 may have falsely elevated Potassium levels. ??For accurate Potassium quantif ication in these patients send serum separator tube (gold top) for subsequent determinations. ??Contact the Clinical Chemistry Laboratory if there are any qu estions. Chloride 101 98 - 107 mmol/L [facility] CO2 26 22 - 31 mmol/L [facility] Anion Gap 10 5 - 15 mmol/L [facility] Calcium 9.6 8.5 - 10.5 mg/dL [facility] Total Protein 7.7 6.1 - 8.0 gm/dL [facility] LAB[facility] Albumin 4.8 3.2 - 5.2 gm/dL [facility] AST 30 0 - 39 unit/L [facility] ALT 30 0 - 55 unit/L [facility] Alk Phos 85 40 - 130 unit/L [facility] Total Bilirubin 1.0 0.2 - 1.3 mg/dL [facility] Estimated GFR 91 >=60 mL/min/1.73 m?? [facility] Comment: The eGFR was calculated using the CKD-EP I equation. As with all creatinine based estimates of kidney function, eGFR values calculated with the CKD-EPI equation are not accurate in patients wi th acute kidney failure, extremes of body mass or the acutely ill. http://OpinionLab/DHnkf eGFR 105 >=60 mL/min/1.73 m?? [facility] Comment: The eGFR was calculated using the CKD-EP I equation. As with all creatinine based estimates of kidney function, eGFR values calculated with the CKD-EPI equation are not accurate in patients wi th acute kidney failure, extremes of body mass or the acutely ill. [email or web address] Specimen Anatomical Collection Method Collection Time Receive d Time (Source) Location / / Volume Laterality Blood specimen 12/23/2018 11:38 9 1:13 (specimen) AM EDT PM EDT Resulting Agency Comment Spec In Lab Dino Campos III, MD CHEMISTRY ORDERABLES Performing Organization Address City/[facility] [place] [address] Hepatitis C Antibody (12/23/2018 11:38 AM EDT) Analysis Performed At Patho logist Time Signature Hepatitis C Ab Negative Negative [facility] Specimen Anatomical Collection Method Collection Time Receive d Time (Source) Location / / Volume Laterality Blood specimen 12/23/2018 11:38 9 1:14 (specimen) AM EDT PM EDT Resulting Agency Comment Spec In Lab Dino Campos III, MD IMMUNOLOGY ORDERABLES Performing Organization Address City/[facility] Code Phon e Number [address] Hepatitis B Surface Antigen (12/23/2018 11:38 AM EDT) Analysis Performed At Patho logist Time Signature HepB Surface Negative Negative [facility] LABORATORY Specimen Anatomical Collection Method Collection Time Receive d Time (Source) Location / / Volume Laterality Blood specimen 12/23/2018 11:38 9 1:14 (specimen) AM EDT PM EDT Resulting Agency Comment Spec In Lab Dino Campos III, MD CHEMISTRY ORDERABLES Performing Organization Address City/[facility] [place] [address] Hepatitis B Surface Antibody (12/23/2018 11:38 AM EDT) P athologist Signature HepB Surface <3.5 IU/L [facility] Ab Quant [facility] Comment: HepB Surface Ab Quant: Unvaccinated: < 8.5 IU/L Vaccinated: > 11.5 IU/L HepB Surface Ab Negative [facility] Comment: Patient is presumed to be not vaccinated or immune to HBV infection. Expected Results: Vaccinated: Positive Unvaccinated: Negative Specimen Anatomical Collection Method Collection Time Receive d Time (Source) Location / / Volume Laterality Blood specimen 12/23/2018 11:38 9 1:14 (specimen) AM EDT PM EDT Resulting Agency Comment Spec In Lab Dino Campos III, MD IMMUNOLOGY ORDERABLES Performing Organization Address City/State/[place] [address] documented in this encounter Visit Diagnoses Diagnosis Tinea manus Dermatophytosis of hand High risk medication use Encounter for long-term (current) use of other medications Psoriasis Other psoriasis documented in this encounter Care Teams Membership Administrator Relationship Specialty Start Date End Date Glnedy Cohen MD PCP - General 08/12/12 [address] [place] [address] documented as of this encounter
--- OUTSIDE RECORDS SUMMARY | 2022-01-31 15:46 | XMS_ITS | Encounter Summary ---
:1980 Author Organization [place] [address] Care Team Providers Name Role Phone Glendy Cohen MD Primary Care Provider Reason for Referral Diagnostic Test (Routine) - Closed Specialty Diagnoses / Procedures Referred By Contact Refer red To Contact Radiology Diagnoses Closed nondisplaced fracture of fourth cervical vertebra with routine healing, unspecified fracture morphology, subsequent encounter Cervical disc disorder with radiculopathy of cervicothoracic region Otilio Horn MD [facility] Rad Mri Procedures MRI Cervical Spine wo Contrast (Generic) [facility] [place] [address] [place] [address] Referral ID Status Reason Start Date Expiration Date Visits V isits Requested Authorized [id number] Closed Specialty 01/27/2018 04/27/2018 1 1 Service Requested Reason for Visit Diagnostic Test (Routine) - Closed Specialty Diagnoses / Procedures Referred By Contact Refer red To Contact Radiology Diagnoses Closed nondisplaced fracture of fourth cervical vertebra with routine healing, unspecified fracture morphology, subsequent encounter Cervical disc disorder with radiculopathy of cervicothoracic region Otilio Horn MD [facility] Rad Mri Procedures MRI Cervical Spine wo Contrast (Generic) [facility] [place] [address] [place] [address] Referral ID Status Reason Start Date Expiration Date Visits V isits Requested Authorized [id number] Closed Specialty 01/27/2018 04/27/2018 1 1 Service Requested Encounter Details Date Type Department Care Team Description 02/17/2018 Hospital Encounter MRI at [facility] Otilio Horn Closed nondisplaced fracture of fourth cervical vertebra with routine healing, unspecified fracture morphology, subsequent encounter; [facility] MD Su Cervical disc disorder with radiculopath y of cervicothoracic region [address] [place], [place] [facility] [address] [facility] [phone] [place] [address] Social History Tobacco Use Types Packs/Day Years Used Date Former Smoker Cigarettes 0.5 11 Smokeless Tobacco: Never Used Comments: avs information given Alcohol Use Standard Drinks/Week Comments Yes 3 (1 standard drink = 0.6 oz pure alcoho l) 24oz [place] hard lemonade Alcohol Habits Answer Date Recorded How often do you have a drink containing Not asked alcohol? How many drinks containing alcohol do you have Not asked on a typical day when you are drinking? How often do you have six or more drinks on Not asked one occasion? Comment: 24oz [place] hard lemonade 10/30/2017 Sex Assigned at Date [...] inhaler hours as needed. Use with spacer acetaminophen (TYLENOL) Take 2 tablets by 30 tablet 0 10/2812/25/2021 500 mg Tablet mouth every 6 hours. documented as of this encounter Progress Notes Vandana Freeman RN - 02/12/2018 8:23 AM EDT MRI PRE-SEDATION ASSESSMENT NOTE NAME: Jose Enrique Mcbride AGE: 37 y.o. : 1980 [address] [place] [address] Male [phone] (home) No relevant phone numbers on file. Glendy Cohen MD None Allergies Allergen Reactions ??? Clindamycin Rash ??? Nsaids (Non-Steroidal Anti-Inflammatory Drug) History of ulcers Date/Time of call: February 12, 2018/8:23 AM/ PREVIOUS MRI SCAN? Yes HEIGHT: 5'7 WEIGHT: SCHEDULED SCAN: MRI CERVICAL SPINE WO CONTRAST [[id number]] Question Answer Comment Where will study be performed? [facility] Reason for exam and clinical history: neck pain SUBJECTIVE: claustrophobic and pain CAN YOU LAY FLAT? yes AIRWAY ISSUES? no DO YOU HAVE ANY INVOLUNTARY MOVEMENTS? no DO YOU HAVE ANY PAIN? Neck pain DO YOU TAKE PAIN MED ON A DAILY BASIS? Flexeril and methadone on med list ASSESSMENT: suitable for PO sedation PLAN: valium 5-10 mg PO ( XXX ) You must have a driver lifter of sanitation truck present when you check in. This patient has been informed that they require a driver lifter of sanitation truck to drive them home after this procedure. In the absence of a driver lifter of sanitation truck, IR will not be able to sedate for your scan. Pt verbalized understanding of these instructions during the pre-procedure education via phone. Yes x [employer] of driver lifter of sanitation truck: Phone number PRIOR SCAN DATE/S SEDATION TYPE SUCCESSFUL Multiple in 2011, 10-26-2017 MRI cervical spine Unknown 02/17/18 cervical spine wo MRI Valium 5mg x 2 PO Yes Revised 10/06/17 documented in this encounter Plan of Treatment Upcoming Encounters Date Type Specialty Care Team Description 03/27/2022 Appointment Radiology Harjeet Castorena MD [facility] [address] [facility] [place], [place] [address] (Wo rk) 03/27/2022 Office Visit [facility] Greer Castorena MD [facility] [address] [place], [place] [address] (Wo rk) documented as of this encounter Procedures Procedure Name Priority Date/Time Associated Diagnosis Comme nts MRI CERVICAL SPINE Routine 02/17/2018 9:48 AM Closed nondispla nohemi Results for this WO CONTRAST EDT fracture of fourth procedure are in cervical vertebra with the r esults routine healing, section. unspecified fracture morphology, subsequent encounter Cervical disc disorder with radiculopathy of cervicothoracic region documented in this encounter Results MRI Cervical Spine wo Contrast (Generic) (02/17/2018 9:48 AM EDT) Anatomical Region Laterality Modality C-spine Magnetic Resonance Specimen (Source) Anatomical Location Collection Method / Collectio n Time Received Time / Laterality Volume Impressions 02/17/2018 11:06 AM EDT 1. ??Evolution in appearance of C4 anterior inferior endplate fracture, now with some marrow edema at that location. The prevertebral soft tissue edema has resolved. There is persistent cord signa l abnormality in the dorsal cord at C4-C5 which may represent evolving contu corinne. 2. ??There is left foraminal narrowing a t C5-C6 and C6-7, similar to the prior study. Narrative 02/17/2018 11:06 AM EDT EXAMINATION: MRI CERVICAL SPINE WO CONTRAST (GENERIC) CLINICAL HISTORY: neck pain TECHNIQUE: MR the cervical spine perform ed without intravenous contrast. COMPARISON: MR 10/26/2017, CT 10/26/2017 FINDINGS: There is reversal of normal ce rvical lordosis, which may be positional. There is new marrow edema at the anterior inferior C4 vertebral body corresponding to the location of the pre viously seen fracture. The prevertebral soft tissue swelling has resolved. There is mildly elevated cord signal involving the dorsal cord at the C4-C5 l evel, similar in distribution to the prior study. There is foraminal narrowin g on the left at C5-C6 and C6-7, with disc protrusion (C6-C7. There is left fo raminal narrowing at C2-C3 which appears to be due to uncovertebral and facet art hropathy, similar to the prior studies. Procedure Note Gideon Capone MD - 02/17/2018Format ting of this note might be different from the original. EXAMINATION: MRI CERVICAL SPINE WO CONTR AST (GENERIC) CLINICAL HISTORY: neck pain TECHNIQUE: MR the cervical spine perform ed without intravenous contrast. COMPARISON: MR 10/26/2017, CT 10/26/2017 FINDINGS: There is reversal of normal ce rvical lordosis, which may be positional. There is new marrow edema at the anterior inferior C4 vertebral body corresponding to the location of the pre viously seen fracture. The prevertebral soft tissue swelling has resolved. There is mildly elevated cord signal involving the dorsal cord at the C4-C5 l evel, similar in distribution to the prior study. There is foraminal narrowin g on the left at C5-C6 and C6-7, with disc protrusion (C6-C7. There is left fo raminal narrowing at C2-C3 which appears to be due to uncovertebral and facet art hropathy, similar to the prior studies. IMPRESSION 1. Evolution in appearance of C4 anterio r inferior endplate fracture, now with some marrow edema at that location. The prevertebral soft tissue edema has resolved. There is persistent cord signa l abnormality in the dorsal cord at C4-C5 which may represent evolving contu corinne. 2. There is left foraminal narrowing at C5-C6 and C6-7, similar to the prior study. Otilio Horn MD IMG MRI ORDERABLES documented in this encounter Visit Diagnoses Diagnosis Closed nondisplaced fracture of fourth c ervical vertebra with routine healing, unspecified fracture morphology, subsequ ent encounter Cervical disc disorder with radiculopath y of cervicothoracic region Brachial neuritis or radiculitis nos documented in this encounter Administered Medications Inactive Administered Medications - up to 3 most recent administrations Medication Order MAR Action Action Date Dose Rate Site diazePAM (VALIUM) tablet 5 mg Given 02/17/2018 8:51 AM EDT 5 mg 5 mg, Oral, 2 TIMES DAILY PRN, 2 doses, Starting on Thu02/17/18 at 0754, Until Thu02/17/18 at 0851, Anxiety, Angio/IR (Day of Procedure), Routine Given 02/17/2018 8:19 AM EDT 5 mg documented in this encounter Care Teams Freight Rate Specialist Relationship Specialty Start Date End Date Glendy Cohen MD PCP - General 08/12/12 [address] [place] [address] documented as of this encounter
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
--- OUTSIDE RECORDS SUMMARY | 2022-01-31 15:46 | XMS_ITS | Encounter Summary ---
:1980 Author Organization [facility] [place] [address] Care Team Providers Name Role Phone Glendy Cohen MD Primary Care Provider Encounter Details Date Type Department Care Team Description 08/17/[facility] [address] [facility] [place] [address] [facility] [phone] [place], [place] [address] (Wo rk) Social History Tobacco Use Types Packs/Day Years Used Date Former Smoker Cigarettes 0.5 11 Smokeless Tobacco: Never Used Comments: avs information given Alcohol Use Standard Drinks/Week Comments Yes 3 (1 standard drink = 0.6 oz pure alcoho l) 24oz [place] hard lemonade Alcohol Habits Answer Date Recorded How often do you have a drink containing Not asked alcohol? How many drinks containing alcohol do you have Not asked on a typical day when you are drinking? How often do you have six or more drinks on Not asked one occasion? Comment: 24oz [place] hard lemonade 10/30/2017 Sex Assigned at Date Recorded Not on file documented as of this encounter Plan of Treatment Upcoming Encounters Date Type Specialty Care Team Description 03/27/2022 Appointment Radiology Harjeet Castorena MD [facility] SPINE [place], [place] [address] (Wo rk) 03/27/2022 Office Visit [facility] Greer Castorena MD [facility] [place], [place] [address] (Wo rk) documented as of [...] as of this encounter Visit Diagnoses Diagnosis Tinea manus Dermatophytosis of hand documented in this encounter Care Teams Cert Pharmacy Tech Relationship Specialty Start Date End Date Glendy Cohen MD PCP - General 08/12/[address] [facility] [place] [address] documented as of this encounter
--- OUTSIDE RECORDS SUMMARY | 2022-01-31 15:46 | XMS_ITS | Encounter Summary ---
:1980 Author Organization [facility] [place] [address] Care Team Providers Name Role Phone Gledny Cohen MD Primary Care Provider Encounter Details Date Type Department Care Team Description 06/12/2020 Telephone Gastroenterology at [facility] Siva Rothman MD [facility] [place] [address] GASTROENTEROLOGY DEPT [phone] [place], [place] [address] (Wo rk) Social History Tobacco Use Types Packs/Day Years Used Date Former Smoker Cigarettes 0.5 11 Smokeless Tobacco: Never Used Comments: avs information given Alcohol Use Standard Drinks/Week Comments Yes 3 (1 standard drink = 0.6 oz pure alcoho l) 24oz [place] hard lemonade Alcohol Habits Answer Date Recorded How often do you have a drink containing Not asked alcohol? How many drinks containing alcohol do you have Not asked on a typical day when you are drinking? How often do you have six or more drinks on Not asked one occasion? Comment: 24oz [place] hard lemonade 10/30/2017 Sex Assigned at Date Recorded Not on file documented as of this encounter Miscellaneous Notes Telephone Encounter - Siva Rothman MD - 06/12/2020 2:50 AM EST Images from the original note were not included. [facility]OLOGY [facility] CALL Name: Jose Enrique Mcbride Date: 06/12/2020 Time: 2:50 AM Referring Location: [facility] Referring Provider: Dr. Campos 40/M hx alcohol use disorder, chronic panc presenting to ED at [facility] with 3d hx epigastric pain, N/V. Afebrile, tachycardic, hypertensive. Concern for withdrawal/DTs. Labs notable for WBC wnl, INR 1.1, TB 2.3, AP 359, AST 206, ALT 186, lipase 56. He underwent CT A/P noting keara dil (CBD measuring 9mm), a ttenuating lesion in distal CBD c/f sludge/stone, no PD dilatation, fatty liver, no obvious cirrhotic changes/portal HTN changes. Presentation is concerning for choledocholithiasis. Patient does not appear cholangitic. No imaging evidence of cholecystitis. No lab evidence of acute pancreatitis. Can't exclude concomitant alc hep. Based on the information provided to me, the general recommendations for this type of patient is [id number] for ERCP. Dr. Campos is managing the patient's withdrawal currently and admitted to hospital medicine. I told him our team would reach out again in the morning to discuss procedure timing. This is not an official consult, as my recommendations are limited by my inability to interview and examine the patient as well as personally review the medical record, imaging, and laboratory findings. Siva Rothman MD PGY-4, Gastroenterology documented in this encounter Plan of Treatment Upcoming Encounters Date Type Specialty Care Team Description 03/27/2022 Appointment Radiology Harjeet Castorena MD [facility] SPINE [place], [place] [address] (Wo rk) 03/27/2022 Office Visit [facility] Greer Castorena MD [facility] SPINE [place], [place] [address] (Wo rk) documented as of [...] on filedocumented in this encounter Care Teams Ballroom Dance Instructor Relationship Specialty Start Date End Date Glendy Cohen MD PCP - General 08/12/12 [address] [place] [address] documented as of this encounter
--- OUTSIDE RECORDS SUMMARY | 2022-01-31 15:46 | XMS_ITS | Encounter Summary ---
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 How many drinks containing alcohol do you have Not asked on a typical day when you are drinking? How often do you have six or more drinks on Not asked one occasion? Comment: 24oz [place] hard lemonade 10/30/2017 Sex Assigned at Date Recorded Not on file documented as of this encounter Progress Notes Otilio Horn MD - 02/17/2018 10:40 AM EDT Images from the original note were not included. Spine Center @ [facility] Otilio Horn MD, MS. Director Noah Fitzpatrick MD [facility] [place] [address] Glendy Cohen MD [facility] [address] / [facility] [id number] Dear Colleagues, I had the pleasure of seeing this patient at the [facility] for surgical evaluation. Patient seen back in follow-up. Dx: Mod cervical stenosis. Hyperextension injury. Small fx off of C4. Facets intact. C7 lamina fracture. With bilateral upper extremity paresthesias severe resolved. Also becomes apparent today that he has been in a forward flexed position in the terms of his cervical spine for now 7 years. This is since 2010. He had an episode of the C6-7 disc with right upper extremity dysfunction at that time. And since then he has been flexion position in the cervical spine. Today he has difficulty holding his head up and has severe left upper extremity C6 and C7 radiculopathy when he does so. He also has significant neck pain when he does so. Part of this is long-standing and part of this is new. MRI was performed today which shows C5-6 and C6-7 left-sided foraminal stenosis. Shows spinal cord injury at C4-5 with the prior anterior longitudinal injury at C4-5. Stable level. Flexion-extension views of the cervical spine show his extension position is adequate if he can be obtained. Neurologically remains at baseline. I discussed the case with our physical therapist as well as my partners. Recommended cervical traction and postural change if possible. I do think this is a medical necessity given his forward flexion.If this is not treated appropriately now he will become stiff in a forward flexed posture. He was seen by physical therapy today. He will come back for cervical traction intermittently. I can see him back in follow-up depending how he does with therapy. More than 50% of more than 40 minutes were spent coordinating care discussing with other providers as well as the patient developing a treatment plan. Sincerely, Otilio Horn MD MS Firestopper Technician - Orthopedic Spine Surgery / Spine Center Real Estate Assistant - Department of Orthopedic Surgery / Academics and Research Repairing Calibrator - [facility] 02/17/2018 Spine Center Response Trends Patient-reported scores: myD-H Spine Questionnaire responses 08/12/2012 VR36 - Physical Function (Range: 0-100) 37.2 VR36 - Bodily Pain (Range: 0-100) 23.1 VR36 - PCS (Range: 0-100) 37.2 VR36 - MCS (Range: 0-100) 46.4 Oswestry Disability Index (Range: 0-100) 48 documented in this encounter Plan of Treatment Upcoming Encounters Date Type Specialty Care Team Description 03/27/2022 Appointment Radiology Harjeet Castorena MD [facility] SPINE [place], [place] [address] (Wo rk) 03/27/2022 Office Visit [facility] Greer Castorena MD [facility] SPINE [place], [place] [address] (Wo rk) documented as of this encounter Visit Diagnoses Diagnosis Closed nondisplaced fracture of fourth c ervical vertebra with routine healing, unspecified fracture morphology, subsequ ent encounter 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
--- OUTSIDE RECORDS SUMMARY | 2022-01-31 15:46 | XMS_ITS | Encounter Summary ---
:1980 Author Organization [facility] [place] [address] Care Team Providers Name Role Phone Glendy Cohen MD Primary Care Provider Encounter Details Date Type Department Care Team Description 06/12/2020 Telephone Gastroenterology [place] [facility] Nery Ulloa MD [facility] [place] [address] GASTROENTEROLOGY DEPT [phone] [place], [place] [address] (Wo rk) Social History Tobacco [...] on Not asked one occasion? Comment: 24oz [place] hard lemonade 10/30/2017 Sex Assigned at Date Recorded Not on file documented as of this encounter Miscellaneous Notes Telephone Encounter - Nery Ulloa MD - 06/12/2020 8:29 AM EST Reached out to team caring for patient at [facility]. Received one 4mg dose of Ativan over night for scoring on CIWA (NIXON, N/V, tremors), is now on scheduled 1mg q4h Ativan. Remains HDS, BP 180s/70s, other VSS. WBC 5 Hb 12.3 Cr 0.8 K 3.9, Mg 1.8 TB 2.1 (from 2.3) DB 0.5 AST 134 (206) ALT 130 (186) ALP 274 Recommendations for this patient would be to continue treatment for alcohol withdrawal before safelypursuing ERCP for suspected choledocholithiasis. Continues to be stable without signs of cholangitis; with downtrending LFTs/TB may have passed stone. Can tentatively plan for [id number] ERCP tomorrow after monitoring for signs of withdrawal today. NPO midnight. Nery Ulloa MD Gastroenterology PGY-4 06/12/2020 8:51 AM Pager #[phone] documented in this encounter Plan of Treatment Upcoming Encounters Date Type Specialty Care Team Description 03/27/2022 Appointment Radiology Harjeet Castorena MD [facility] DR SPINE [place], [place] [address] (Wo rk) 03/27/2022 Office Visit Pain [facility] Spine Center Greer Castorena MD [facility] SPINE [place], [place] [address] (Wo rk) documented as of [...] on filedocumented in this encounter Care Teams Upper Inspector Relationship Specialty Start Date End Date Glendy Cohen MD PCP - General 08/12/12 [address] [place] [address] documented as of this encounter
--- OUTSIDE RECORDS SUMMARY | 2022-01-31 15:46 | XMS_ITS | Encounter Summary ---
:1980 Author Organization [facility] [place] [address] Care Team Providers Name Role Phone Glendy Cohen MD Primary Care Provider Reason for Visit Diagnostic Test (Routine) - Closed Specialty Diagnoses / Procedures Referred By Contact Refer red To Contact Radiology Diagnoses Closed nondisplaced fracture of fourth cervical vertebra with routine healing, unspecified fracture morphology, subsequent encounter Cervical disc disorder with radiculopathy of cervicothoracic region Otilio Horn MD [facility] Rad Mri Procedures MRI Cervical Spine wo Contrast (Generic) [facility] [place] [address] [place] [address] Referral ID Status Reason Start Date Expiration Date Visits V isits Requested Authorized [id number] Closed Specialty 01/27/2018 04/27/2018 1 1 Service Requested Encounter Details Date Type Department Care Team Description 02/17/2018 Hospital Encounter MRI at [facility] Otilio Horn MD [facility] [place] [address] SPINE CENTER [phone] [place], [place] [address] (Wo rk) Social History Tobacco Use Types Packs/Day Years Used Date Former Smoker Cigarettes 0.5 11 Smokeless Tobacco: Never Used Comments: avs information given Alcohol Use Standard Drinks/Week Comments Yes 3 (1 standard drink = 0.6 oz pure alcoho l) 24oz [place] hard lemonade Alcohol Habits Answer Date Recorded How often do you have a drink containing Not asked alcohol? How many drinks containing alcohol do you have Not asked on a typical day when you are drinking? How often do you have six or more drinks on Not asked one occasion? Comment: [place] hard lemonade 10/30/2017 Sex Assigned at [...] Description 03/27/2022 Appointment Radiology Harjeet Castorena MD [facility] SPINE [place], [place] [address] (Wo rk) 03/27/2022 Office Visit Pain [facility] Greer Castorena MD [facility] SPINE [place], [place] [address] ( rk) documented as of this encounter Procedures [...] ORDERABLES documented in this encounter Visit Diagnoses Not on filedocumented in this encounter Care Teams Kennel Staff Member Relationship Specialty Start Date End Date Glendy Cohen MD PCP - General 08/12/12 [address] [place] [address] documented as of this encounter
--- OUTSIDE RECORDS SUMMARY | 2022-01-31 15:46 | XMS_ITS | Encounter Summary ---
:1980 Author Organization [facility] [place] [address] Care Team Providers Name Role Phone Glendy Cohen MD Primary Care Provider Encounter Details Date Type Department Care Team Description 07/20/2020 Ancillary Procedure Radiology Library at [place] [address] [place] [address] [phone] Social History Tobacco Use Types Packs/Day Years Used Date Former Smoker Cigarettes 0.5 11 Smokeless Tobacco: Never Used Comments: avs information given Alcohol Use Standard Drinks/Week Comments Yes 3 (1 standard drink = 0.6 oz pure alcoho l) 24oz [place] hard lemonade Alcohol Habits Answer Date Recorded How often do you have a drink containing Not asked alcohol? How many drinks containing alcohol do you have Not asked on a typical day when you are drinking? How often do you have six or more drinks on Not asked one occasion? Comment: 24oz [place] hard lemonade 10/30/2017 Sex Assigned at Date Recorded Not on file documented as of this encounter Plan of Treatment Upcoming Encounters Date Type Specialty Care Team Description 03/27/2022 Appointment Radiology Harjeet Castorena MD [facility] SPINE [place], [place] [address] (Wo rk) 03/27/2022 Office Visit Pain and Spine Center Greer Castorena MD [facility] SPINE CENTER [place], [place] [address] (Wo rk) documented as of [...] Procedure Name Priority Date/Time Associated Comments Diagnosis FILM LIBRARY STORAGE Routine 07/20/2020 12:00 AM Results for this ONLY ULTRASOUND EST procedure ar e in STUDY the results section. documented in this encounter Results Film Library- Storage Only Ultrasound Study (07/20/2020 12:00 AM EST) Specimen (Source) Anatomical Location Collection Method / Collectio n Time Received Time / Laterality Volume Narrative [facility][NOTE 3] - 07/24/2020 12:28 PM EDT This exam is auto-finalizing. It's purpo se is for storage only. Miranda Mccray MD IMG FILM LIBRARY ORDERABLES Performing Organization Address City/State/ZIP Code Phon e Number [place], [place] documented in this encounter Visit Diagnoses Not on filedocumented in this encounter Care Teams Ibm Bpm Developer Relationship Specialty Start Date End Date Glendy Cohen MD PCP - General 08/12/12 [address] [place] [address] documented as of this encounter
--- OUTSIDE RECORDS SUMMARY | 2022-01-31 15:46 | XMS_ITS | Encounter Summary ---
:1980 Author Organization [facility] [place] [address] Care Team Providers Name Role Phone Glendy Cohen MD Primary Care Provider Encounter Details Date Type Department Care Team Description 12/23[facility] [address] [facility] [place] [address] [address] [facility] [phone] [place], [place] [address] (Wo rk) Social History Tobacco Use Types Packs/Day Years Used Date Former Smoker Cigarettes 0.5 11 Smokeless Tobacco: Never Used Comments: avs information given Alcohol Use Standard Drinks/Week Comments Yes 3 (1 standard drink = 0.6 oz pure alcoho l) 24oz [place] hard lemonade Alcohol Habits Answer Date Recorded How often do you have a drink containing Not asked alcohol? How many drinks containing alcohol do you have Not asked on a typical day when you are drinking? How often do you have six or more drinks on Not asked one occasion? Comment: 24oz [place] hard lemonade 10/30/2017 Sex Assigned at Date Recorded Not on file documented as of this encounter Plan of Treatment Upcoming Encounters Date Type Specialty Care Team Description 03/27/2022 Appointment Radiology Harjeet Castorena MD [facility] DR SPINE CENTER [place], [place] [address] (Wo rk) 03/27/2022 Office Visit Pain [facility] Sp[facility] Center Greer Castorena MD [facility] DR SPINE CENTER [place], [place] [address] (Wo rk) documented as of this encounter Visit Diagnoses Not on filedocumented in this encounter Care Teams Wafer Fabrication Operator Relationship Specialty Start Date End Date Glendy Cohen MD PCP - General 08/12/[address] [facility] [place] [address] documented as of this encounter
--- OUTSIDE RECORDS SUMMARY | 2022-01-31 15:46 | XMS_ITS | Encounter Summary ---
:1980 Author Organization [facility] [place] [address] Care Team Providers Name Role Phone Glendy Cohen MD Primary Care Provider Encounter Details Date Type Department Care Team Description 10/20/2018 Hospital Encounter MRI at [facility] Otilio Horn [place]desed (D-ARRIVED [facility] MD Su LATE/NOT SEEN) [place], [place] CENTER [address] SPINE CENTER [phone] [place] [id number] Social History Tobacco Use Types Packs/Day Years Used Date Former Smoker Cigarettes 0.5 11 Smokeless Tobacco: Never Used Comments: avs information given Alcohol Use Standard Drinks/Week Comments Yes 3 (1 standard drink = 0.6 oz pure alcoho l) 24oz [place] hard lemonade Alcohol Habits Answer Date Recorded How often do you have a drink containing Not asked alcohol? How many drinks containing alcohol do you have Not asked on a typical day when you are drinking? How often do you have six or more drinks on Not asked one occasion? Comment: 24oz [place] hard lemonade 10/30/2017 Sex Assigned at Date [...] documented as of this encounter Progress Notes Leticia Savage RN - 10/15/2018 10:24 AM EDT MRI PRE-SEDATION ASSESSMENT NOTE NAME: Jose Enrique Mcbride AGE: 38 y.o. : 1980 [address] [place] [address] Male [phone] (home) [phone] (work) Telephone Information: Glendy Cohen MD None Allergies Allergen Reactions ??? Clindamycin Rash ??? Nsaids (Non-Steroidal Anti-Inflammatory Drug) History of ulcers Date/Time of call: October 15, 2018/10:24 AM/ PREVIOUS MRI SCAN? yes HEIGHT: 5'8 WEIGHT: 165 lbs SCHEDULED SCAN: MRI CERVICAL SPINE WO CONTRAST [[id number]] SUBJECTIVE: CAN YOU LAY FLAT? AIRWAY ISSUES? DO YOU HAVE ANY INVOLUNTARY MOVEMENTS? (explain) DO YOU HAVE ANY PAIN? DO YOU TAKE PAIN MED ON A DAILY BASIS? ASSESSMENT: PLAN: ( XXX ) You must have a wrecker driver present when you check in. This patient has been informed that they require a wrecker driver to drive them home after this procedure. In the absence of a wrecker driver, IR will not be able to sedate for your scan. Pt verbalized understanding of these instructions during the pre-procedure education via phone. Yes Leslie of wrecker driver: Phone number PRIOR SCAN DATE/S ?SEDATION TYPE ?SUCCESSFUL Multiple in 2011, 10-26-2017 MRI??Cervical??Spine Unknown? 02/17/18 cervical spine wo MRI Valium 5 mg??PO??x 2 Yes ? Revised 10/06/17 documented in this encounter Plan of Treatment Upcoming Encounters Date Type Specialty Care Team Description 03/27/2022 Appointment Radiology Harjeet Castorena MD [facility] SPINE [place] [address] (Wo rk) 03/27/2022 Office Visit Pain and Spine Center Greer Castorena MD [facility] SPINE [place], [place] [address] (Wo rk) documented as of this encounter Visit Diagnoses Not on filedocumented in this encounter Care Teams Car Repairer Relationship Specialty Start Date End Date Glendy Cohen MD PCP - General 08/12/12 [address] [place] [address] documented as of this encounter
--- OUTSIDE RECORDS SUMMARY | 2022-01-31 15:46 | XMS_ITS | Encounter Summary ---
:1980 Author Organization [facility] [place] [address] Care Team Providers Name Role Phone Glendy Cohen MD Primary Care Provider Encounter Details Date Type Department Care Team Description 05/01/2021 Ancillary Procedure Radiology Library at Glendy Cohen MD [address] [address] [phone] (Wo rk) Social History Tobacco Use Types Packs/Day Years Used Date Former Smoker Cigarettes 0.5 11 Smokeless Tobacco: Never Used Comments: avs information given Alcohol Use Standard Drinks/Week Comments Yes 3 (1 standard drink = 0.6 oz pure alcoho l) 24oz [place] hard lemonade Alcohol Habits Answer Date Recorded How often do you have a drink containing Not asked alcohol? How many drinks containing alcohol do you have Not asked on a typical day when you are drinking? How often do you have six or more drinks on Not asked one occasion? Comment: 24oz [place] hard lemonade 10/30/2017 Sex Assigned at Date Recorded Not on file documented as of this encounter Plan of Treatment Upcoming Encounters Date Type Specialty Care Team Description 03/27/2022 Appointment Radiology Harjeet Castorena MD [facility] DR SPINE CENTER [place], [place] [address] (Wo rk) 03/27/2022 Office Visit Pain and Spine Center Greer Castorena MD [facility] DR SPINE CENTER [place], [place] [address] (Wo rk) documented as of [...] Associated Diagnosis Comme nts FILM LIBRARY Routine 05/01/2021 12:00 AM Results for this STORAGE ONLY MR EST procedure ar e in SPINE the results section. documented in this encounter Results Film Library- Storage Only MR Spine (05/01/2021 12:00 AM EST) Specimen (Source) Anatomical Location Collection Method / Collectio n Time Received Time / Laterality Volume Narrative [facility] - 07/05/2021 4:20 PM EST This exam is auto-finalizing. It's purpo se is for storage only. Glendy Cohen MD IMG FILM LIBRARY ORDERABLES Performing Organization Address City/State/ZIP Code Phon e Number [place], [place] documented in this encounter Visit Diagnoses Not on filedocumented in this encounter Care Teams Ground Crew Supervisor Relationship Specialty Start Date End Date Glendy Cohen MD PCP - General 08/12/12 [address] [place] [address] documented as of this encounter
--- OUTSIDE RECORDS SUMMARY | 2022-01-31 15:46 | XMS_ITS | Encounter Summary ---
:1980 Author Organization [facility] [place] [address] Care Team Providers Name Role Phone Glendy Cohen MD Primary Care Provider Reason for Visit Reason Onset Date Comments Prior Authorization 12/24/2018 Jason Encounter Details Date Type Department Care Team Description 12/24/2018 Telephone Pharmacy at [facility] Joe Logan Prior Authorization [facility] [place] [address] Social History Tobacco Use Types Packs/Day Years Used Date Former Smoker Cigarettes 0.5 11 Smokeless Tobacco: Never Used Comments: avs information given Alcohol Use Standard Drinks/Week Comments Yes 3 (1 standard drink = 0.6 oz pure alcoho l) 24oz [place] hard lemonade Alcohol Habits Answer Date Recorded How often do you have a drink containing Not asked alcohol? How many drinks containing alcohol do you have Not asked on a typical day when you are drinking? How often do you have six or more drinks on Not asked one occasion? Comment: 24oz [place] hard lemonade 10/30/2017 Sex Assigned at Date Recorded Not on file documented as of this encounter Miscellaneous Notes Telephone Encounter - Valentino Healy - 12/24/2018 3:53 PM EDT [facility], Prior Authorization Denial Medication Name: Jason Case/Reference #: [id number] Denial Summary: Must have tried and failed Humira Cosentyx Patient Notified of Denial:Will Notify Additional Information from Insurance carrier. Please see below: Scanned denial letter in scan docs For any questions relating to this denial please reach out directly to your section???s specialty pharmacist, or the specialty pharmacy team at [facility] Telephone Encounter - Joe Logan [facility] - 12/24/2018 8:36 AM EDT [facility], Medication Prior Authorization Patient: Jose Enrique Mcbride Patient : 1980 Patient Address: [address] [address] (home) Medication: Stelara Subscriber Insurance: [place] Physician: Carlos Pedroza Sent Via: Fax Holly: Ref/Case/PA#: Medication Strength Frequency Requested: Stelara 45 mg/0.5 ml SOSY Inject 45 mg (1 Syringe) Subcutaneously On Day 0 Then 4 Weeks Later Then 12 Weeks Later Qty/Day Supply: 0.10/05 New Start: Yes Diagnosis & ICD-10 Code: Psoriasis L40.9 documented in this encounter Plan of Treatment Upcoming Encounters Date Type Specialty Care Team Description 03/27/2022 Appointment Radiology Harjeet Castorena MD [facility] DR SPINE CENTER [place], [place] [address] (Chanda cunningham) 03/27/2022 Office Visit Pain and Spine Center Greer Castorena MD [facility] DR SPINE [place], [place] [address] (Wo rk) documented as of this encounter Visit Diagnoses Not on filedocumented in this encounter Care Teams Billing And Insurance Coordinator Relationship Specialty Start Date End Date Glendy Cohen MD PCP - General 08/12/[address] [facility] [address] [place] [address] documented as of this encounter
--- OUTSIDE RECORDS SUMMARY | 2022-01-31 15:46 | XMS_ITS | Encounter Summary ---
:1980 Author Organization [facility] [place] [address] Care Team Providers Name Role Phone Glendy Cohen MD Primary Care Provider Reason for Visit Reason Comments Medication Management Encounter Details Date Type Department Care Team Description 02/01/2020 Specialty [place] [facility], [place] [phone] Social History Tobacco Use Types Packs/Day Years Used Date Former Smoker Cigarettes 0.5 11 Smokeless Tobacco: Never Used Comments: avs information given Alcohol Use Standard Drinks/Week Comments Yes 3 (1 standard drink = 0.6 oz pure alcoho l) 24oz [place] hard lemonade Alcohol Habits Answer Date Recorded How often do you have a drink containing Not asked alcohol? How many drinks containing alcohol do you have Not asked on a typical day when you are drinking? How often do you have six or more drinks on Not asked one occasion? Comment: 24oz [place] hard lemonade 10/30/2017 Sex Assigned at Date Recorded Not on file documented as of this encounter Progress Notes Jovana Zamora Jamel - 02/01/2020 10:52 AM EDT Clinical Management Plan: Transfer of Care/Discharge Specialty Services Specialty Pharmacy Consultation; Jovana Zamora [facility] Comprehensive Medication Management (CMM) Jose Enrique Mcbride [address] [place] [address] Telephone Information: Work Phone Not on file. Is the patient transferring services to a different Specialty Pharmacy or discontinuing the medication? Yes Medication: Cosentyx Reason for discontinuation or transfer: Patient needs an appointment for more refills, but he does not want to make an appointment because his skin is clear. Approximate date of discontinuation or transfer: 02/01/2020; we have not filled med since 11/10/2019 Patient's response to therapy: clear Summary of services provided by [facility]: routine fills and consultations Summary of on-going needs: Patient understands we will be discontinuing him from Specialty. If and when he flares, he will make an appointment with the provider. At that point, the derm specialty team will see him and re-establish services. Referral for additional services (if applicable): no Is patient aware of referral? N/A Instructions provided to patient about discharge/transfer: no Provider aware of discontinuation or transfer: yes Patient understands no changes to current drug regimen were made at the appointment and that [facility] is providing recommendations (summary located at top of note) for provider review and follow up. Jovana Zamora RPH 02/01/20 10:53 AM documented in this encounter Plan of Treatment Upcoming Encounters Date Type Specialty Care Team Description 03/27/2022 Appointment Radiology Harjeet Castorena MD [facility] [place] [address] (Wo rk) 03/27/2022 Office Visit Pain and Spine Center Greer Castorena MD [facility] [place], [place] [address] (Wo rk) documented as of [...] on filedocumented in this encounter Care Teams Shelter Director Relationship Specialty Start Date End Date Glendy Cohen MD PCP - General 08/12/12 [address] [place] [address] documented as of this encounter
--- OUTSIDE RECORDS SUMMARY | 2022-01-31 15:46 | XMS_ITS | Encounter Summary ---
:1980 Author Organization [facility] [place] [address] Care Team Providers Name Role Phone Glendy Cohen MD Primary Care Provider Encounter Details Date Type Department Care Team Description 12/23/2018 Specialty [place] [facility] [place] [address] Social History Tobacco Use Types Packs/Day Years Used Date Former Smoker Cigarettes 0.5 11 Smokeless Tobacco: Never Used Comments: avs information given Alcohol Use Standard Drinks/Week Comments Yes 3 (1 standard drink = 0.6 oz pure alcoho l) 24oz [place] hard lemonade Alcohol Habits Answer Date Recorded How often do you have a drink containing Not asked alcohol? How many drinks containing alcohol do you have Not asked on a typical day when you are drinking? How often do you have six or more drinks on Not asked one occasion? Comment: 24oz [place] hard lemonade 10/30/2017 Sex Assigned at Date Recorded Not on file documented as of this encounter Progress Notes Judith Carvalho - 12/23/2018 11:07 AM EDT Specialty Pharmacy Consultation; Judith Carvalho Comprehensive Medication Management (CMM) Jose Enrique Mcbride Diagnosis: Psoriasis Therapy Start Date: TBD Contact in person or via telephone: In person Mr. Jose Enrique Mcbride is a 38 y.o. (1980) male who was contacted in regard to specialty medication. Spoke with patient regarding Stelara . A review of the medication therapy was performed. The medication was discussed as scheduled, and all medication related questions and concerns were addressed. Awaiting labs and prescription prior to starting therapy. The specialty pharmacy staff will follow upwith the patient 5-7 days prior to next refill. Is the patient willing to proceed with the Clinical Assessment? Yes Summary and Recommendations: Saw patient today to discuss Stelara therapy. Patient's allergies, medications and medical conditions confirmed. Patient diagnosed with psoriasis and interested in started biologic therapy at this time.Patients current most affected areas are legs, arms, head, ears and groin. He states that he was prev iously given a topical medication by his PCP, though unable to confirm name of medication, he feels that his plaques have since worsened. Patient has not tried any oral therapies at this time. Of note he has about 6 drinks at least 3-4 times a week, excluding him as a candidate for methotrexate therapy. Patient would like to see skin clearance with use of Stelara and decrease the need for topicals discussed during his visit. At this time patient states that he is willing to do injections and we discussed him returning to care for a teaching appointment once medication is approved, as he does not haveexperience self injecting. We discussed some of the possible side effects including injection site reactions as well as risk ofinfection. Patient verbalizes basic understanding of potential reasons for dose holding and protocol. Quantiferon Gold TB test to be completed after visit today and assess prior to starting therapy. We discussed the prior authorization process and timeline. Patient is aware of the possible outcomesincluding possibility of needing to try alternative therapy prior to Stelara being approved. Patient does not have any further questions at this time. He was given our contact information and informed that there is a pharmacist available 01/12 should he have any questions. At this time we will submit a prior authorization to the insurance and follow up with him upon receiving a determination. Clinic follow-up needed: yes - will need teaching appointment and clinical follow up 1-3 months after start date Allergies and Drug intolerance: Allergies Allergen Reactions ??? Clindamycin Rash ??? Nsaids (Non-Steroidal Anti-Inflammatory Drug) History of ulcers Special Dietary or Hydration Requirements: no There is no height or weight on file to calculate BMI. Medication Reconciliation Discrepancies (compared to [facility] med list) -Patient will be starting Halobetasol, Dovonex ad Ketoconazole topicals Medication List: Current Outpatient Medications Medication Sig [...] values: Lab Results Component Value Date NA 138 10/27/2017 K 4.0 10/27/2017 CL 101 10/27/2017 CO2 26 10/27/2017 BUN 9 (L) 10/27/2017 CREATININE 0.79 (L) 10/27/2017 GLUCOSE 86 10/27/2017 CALCIUM 8.5 10/27/2017 No results found for: ALT, AST, GGT, ALKPHOS, BILITOT, BILIDIR, ALBUMIN, PROT Lab Results Component Value Date WBC 6.4 10/27/2017 HGB 14.2 10/27/2017 HCT 41.8 10/27/2017 MCV 97.0 (H) 10/27/2017 PLATELET 223 10/27/2017 No results found for: HA1C There is no immunization history on file for this patient. Assessment and Recommendations: Title Drug Treatment Outcomes No data found. Reviewed in detail with patient: Dose appropriateness [...] Assessment: Does the patient have a primary ambulatory care nurse? no Patient has emergency contact on file: Yes Does patient need referral to social media director: No Does patient need referral to advocacy group: No Physical and Home Health Assessment: Is the patient able to store their medication as directed? Yes Is the patient in a safe home environment? Yes Do you have a support network? Yes Reviewed potential home safety hazards: Yes Economic Assessment: Patient is agreeable to medication copay: Yes Copay Amount: TBD Day Supply: TBD Date Needed: TBD Copay assistance required: no Therapy Assessment: Appropriate Therapy: Yes Current Affected Areas: Legs, head, arms, groin and ears Total BSA involved: Unkown Recent Skin Exacerbations/Flaring: yes - patient currently using topical prescribed by PCP, no improvement, plaques still worsening Recent Topical Corticosteroid Use: yes - Halobetasol Relapsing/Remitting Factors: no Diagnosis of Psoriatic Arthritis: No Expected Outcome: Patient would like to see skin clearing with use of Stelara. Patient's goals: Patient's specific desired goal: Patient would like to see at least 50% clearance by 3 month follow up and decreased need for topical medication use. Measured by: Skin appearance on legs, arms, head, groin, and ears Time-frame to meet goal: 3 months Care Plan Reviewed and Approved by both Pharmacist and Patient: Yes Patient's Problems/Needs: PA assistance and teaching appointment for injection technique Monitoring requirements for prescribed medication: TB test, injection site reactions, signs/symptomsof infection Interventions (if applicable): No Educational information or adherence tools provided: Yes Additional equipment/supplies required: no Pharmacist follow-up needed: Yes Informed patient of specialty pharmacy services: Yes -Patient will be provided with welcome packet: Yes Date to be provided: TBD Delivery Method: TBD -Patient will be provided with Rights & Responsibilities: Yes Date to be provided: TBD Delivery Method: TBD -Patient is aware a licensed pharmacist is [...] at the appointment and that [facility] is providing recommendations (summary located at top of note) for provider review and follow up. Judith Carvalho 12/23/18 11:35 AM documented in this encounter Plan of Treatment Upcoming Encounters Date Type Specialty Care Team Description 03/27/2022 Appointment Radiology Harjeet Castorena MD [facility] [place], [place] [address] (Wo rk) 03/27/2022 Office Visit Pain and Spine Center Greer Castorena MD [facility] [place], [place] [address] (Wo rk) documented as of this encounter Visit Diagnoses Not on filedocumented in this encounter Care Teams Orientation And Mobility Instructor Relationship Specialty Start Date End Date Glendy Cohen MD PCP - General 08/12/12 [address] [place] [address] documented as of this encounter
--- OUTSIDE RECORDS SUMMARY | 2022-01-31 15:46 | XMS_ITS | Encounter Summary ---
:1980 Author Organization [facility] [place] [address] Care Team Providers Name Role Phone Glendy Cohen MD Primary Care Provider Reason for Visit Reason Onset Date Comments Follow-up 06/22/2018 Encounter Details Date Type Department Care Team Description 06/22/2018 Telephone Spine Center at [facility] Yaquelin Miranda, [place] [address] Social History Tobacco Use Types Packs/Day Years Used Date Former Smoker Cigarettes 0.5 11 Smokeless Tobacco: Never Used Comments: avs information given Alcohol Use Standard Drinks/Week Comments Yes 3 (1 standard drink = 0.6 oz pure alcoho l) 24oz [place] hard lemonade Alcohol Habits Answer Date Recorded How often do you have a drink containing Not asked alcohol? How many drinks containing alcohol do you have Not asked on a typical day when you are drinking? How often do you have six or more drinks on Not asked one occasion? Comment: 24oz [place] hard lemonade 10/30/2017 Sex Assigned at Date Recorded Not on file documented as of this encounter Miscellaneous Notes Telephone Encounter - Yaquelin Miranda, RN - 06/22/2018 2:48 PM EST Call placed to pt on behalf of Dr Horn to clarify with pt re-scheduling plans for MRI so we couldassure Dr Horn reviewed imaging. Pt has rescheduled MRI with oral premed here at [facility] on 08/23/18. Given distance pt lives from [facility]; will request Dr Horn review imagine and advise pt of necessary next steps. ----- Message from Otilio Horn MD sent at 06/20/2018 8:45 PM EST ----- Regarding: MRI Yaquelin, On 06/16/2017 this patient was cx but was going to come in and have his MRI. He cx that. Can you or your team close the loop and make sure he gets an MRI and that I see it? Many thanks Otilio documented in this encounter Plan of Treatment Upcoming Encounters Date Type Specialty Care Team Description 03/27/2022 Appointment Radiology Harjeet Castorena MD [facility] [address] SPINE [place], [place] [address] (Wo rk) 03/27/2022 Office Visit Pain and Spine Center Greer Castorena MD [facility] [address] SPINE [place], [place] [address] (Wo rk) documented as of this encounter Visit Diagnoses Not on filedocumented in this encounter Care Teams Patient Accounts Coordinator Relationship Specialty Start Date End Date Glendy Cohen MD PCP - General 08/12/12 [address] [place] [address] documented as of this encounter
--- OUTSIDE RECORDS SUMMARY | 2022-01-31 15:46 | XMS_ITS | Encounter Summary ---
:1980 Author Organization [facility] [place] [address] Care Team Providers Name Role Phone Glendy Cohen MD Primary Care Provider Reason for Visit Diagnostic Test (Routine) - Canceled Specialty Diagnoses / Procedures Referred By Contact Refer red To Contact Radiology Diagnoses Closed nondisplaced fracture of fourth cervical vertebra with routine healing, unspecified fracture morphology, subsequent encounter Cervical disc disorder with radiculopathy of cervicothoracic region Otilio Horn MD [facility] Rad Mri Procedures MRI Cervical Spine wo Contrast (Generic) [facility] CENTER [facility] [place] [address] [place] [address] Referral ID Status Reason Start Expiration Visits Visits Date Date Requested Authorized [id number] Canceled Specialty 05/21/2018 08/19/2018 2 2 Service Requested Encounter Details Date Type Department Care Team Description 05/26/2018 Hospital Encounter MRI at [facility] Otilio Horn Canceled [facility] MD Su (P-INCONVENIENT DATE Drive ONE MEDICAL OR TIME) [facility] [id number] SPINE CENTER [phone] [place] [address] Social History Tobacco Use Types Packs/Day Years [...] documented as of this encounter Progress Notes Deanna Lamb RN - 05/21/2018 10:01 AM EST MRI PRE-SEDATION ASSESSMENT NOTE NAME: Jose Enrique Mcbride AGE: 38 y.o. : 1980 [address] [facility] [address] Male [phone] (work) Telephone Information: Glendy Cohen MD None Allergies Allergen Reactions ??? Clindamycin Rash ??? Nsaids (Non-Steroidal Anti-Inflammatory Drug) History of ulcers Date/Time of call: May 21, 2018/10:01 AM/ PREVIOUS MRI SCAN? Yes HEIGHT: 5'8 WEIGHT: 165 lbs SCHEDULED SCAN: MRI CERVICAL SPINE WO CONTRAST [[id number]] 40 minutes, head first, supine Where will study be performed? [facility] Reason for exam and clinical history: only left and right obliques are needed. pre op study. SUBJECTIVE: CAN YOU LAY FLAT? AIRWAY ISSUES? DO YOU HAVE ANY INVOLUNTARY MOVEMENTS? (explain) DO YOU HAVE ANY PAIN? DO YOU TAKE PAIN MED ON A DAILY BASIS? ASSESSMENT: PLAN: ( XXX ) You must have a yard truck driver present when you check in. This patient has been informed that they require a yard truck driver to drive them home after this procedure. In the absence of a yard truck driver, IR will not be able to sedate for your scan. Pt verbalized understanding of these instructions during the pre-procedure education via phone. Yes [place] of yard truck driver: Phone number: PRIOR SCAN DATE/S SEDATION TYPE SUCCESSFUL Multiple in 2011, 10-26-2017 MRI Cervical Spine Unknown ?? 02/17/18 MRI Cervical Spine wo Valium 5 mg x 2 PO Yes ? Revised 10/06/17 documented in this encounter Plan of Treatment Upcoming Encounters Date Type Specialty Care Team Description 03/27/2022 Appointment Radiology Harjeet Castorena MD [facility] DR SPINE CENTER [place], [place] [address] (Wo rk) 03/27/2022 Office Visit Pain and Spine Center Greer Castorena MD [facility] DR SPINE [place]ENTER [place], [place] [address] (Wo rk) documented as of this encounter Visit Diagnoses Not on filedocumented in this encounter Care Teams Financial Institution Vice President Relationship Specialty Start Date End Date Glendy Cohen MD PCP - General 08/12/12 [address] [place] [address] documented as of this encounter
--- OUTSIDE RECORDS SUMMARY | 2022-01-31 15:46 | XMS_ITS | Encounter Summary ---
:1980 Author Organization [facility] [place] [address] Care Team Providers Name Role Phone Glendy Cohen MD Primary Care Provider Reason for Visit Reason Onset Date Comments Other 02/05/2018 Encounter Details Date Type Department Care Team Description 02/05/2018 Telephone Care Management Kareen Woo MSW [facility] [place] [address] [place], [place] [id number] [phone] Social History Tobacco Use Types Packs/Day Years Used Date Former Smoker Cigarettes 0.5 11 Smokeless Tobacco: Never Used Comments: avs information given Alcohol Use Standard Drinks/Week Comments Yes 3 (1 standard drink = 0.6 oz pure alcoho l) 24oz [place] hard lemonade Alcohol Habits Answer Date Recorded How often do you have a drink containing Not asked alcohol? How many drinks containing alcohol do you have Not asked on a typical day when you are drinking? How often do you have six or more drinks on Not asked one occasion? Comment: 24oz [place] hard lemonade 10/30/2017 Sex Assigned at Date Recorded Not on file documented as of this encounter Miscellaneous Notes Telephone Encounter - Kareen Woo MSW - 02/05/2018 2:22 PM EDT [facility] covering for Spine Center Social Work Flooring Machine Operator: Leah Wray, received a call from re: medicaid transportation needs for his upcoming 02-17-18 MRI and f/u Spine center appt w/ . [facility] phoned pt to assess needs, and pt reports that due to the distance to [facility] exceeding the allotted transportation distance, medicaid ie: [facility] # [phone] required a form from the MD to substantiate the transportation needs.l CCM phoned [facility] to ascertain which form needed to be completed, as Spine RN's were not aware of the form. [facility] directed CCM to pt's PCP to complete the form and fax it to [facility], noting the PCP was very familiar w/ this process. CCM phoned 's office, # [phone] speaking w/ the center receptionist: Hiral re: the above.. Hiral was very familiar w/ this process and relayed plan to fax the medical form, along w/ a print outof the [facility] appts to send to [facility]/medicaid for pt's 02-17-18 MRI and Spine appt w/ . [facility] relayed appreciation to PCP's staff for this assistance, inviting her to f/u w/ me PRN if in need of additional information for the transportation needs. P: [facility] will collaborate w/ Spine center staff re: the above encounter and be available for f/u intervention PRN. documented in this encounter Plan of Treatment Upcoming Encounters Date Type Specialty Care Team Description 03/27/2022 Appointment Radiology Harjeet Castorena MD [facility] DR SPINE CENTER [place], [place] [address] (Wo rk) 03/27/2022 Office Visit Pain and Spine Center Greer Castorena MD [facility] [address] SPINE CENTER [place], [place] [address] (Wo rk) documented as of this encounter Visit Diagnoses Not on filedocumented in this encounter Care Teams Element Burner Relationship Specialty Start Date End Date Glendy Cohen MD PCP - General 08/12/12 [address] [place] [address] documented as of this encounter
--- OUTSIDE RECORDS SUMMARY | 2022-01-31 15:46 | XMS_ITS | Encounter Summary ---
:1980 Author Organization [facility] [place] [address] Care Team Providers Name Role Phone Glendy Cohen MD Primary Care Provider Reason for Visit Reason Onset Date Comments Pre Procedure Call 08/15/2021 Encounter Details Date Type Department Care Team Description 08/15/2021 Telephone [facility] Mera Chandler , [place] [address] Social History Tobacco Use Types Packs/Day Years Used Date Current Every Day Smoker Cigarettes 0.5 11 Smokeless Tobacco: Never Used Comments: avs information given Alcohol Use Standard Drinks/Week Comments Yes 3 (1 standard drink = 0.6 oz pure alcoho l) 24oz [place] hard lemonade Alcohol Habits Answer Date Recorded How often do you have a drink containing Not asked alcohol? How many drinks containing alcohol do you have Not asked on a typical day when you are drinking? How often do you have six or more drinks on Not asked one occasion? Comment: 24oz [place] hard lemonade 10/30/2017 Sex Assigned at Date Recorded Not on file documented as of this encounter Miscellaneous Notes Telephone Encounter - Mera Chandler PHYSIATRIST - 08/15/2021 11:03 AM EDT Met with today following the surgical evaluation for purpose of providing pre and post operative instructions and to plan for any pre/post- operative discharge needs. Collar Info: Fit patient for [place] J collar; Size needed: 300 Reviewed expectations re collar provision and use postoperatively. Provided education & reviewedimportance of daily skin assessment, and pad changes as needed. Preop Medication Holds: Advised pt of need to hold anticoagulants, NSAIDs, ASA products, and Fish Oil for ~10 days preoperatively. Reviewed medication list. Pt agreed to hold the above as instructed. is noted to be taking any prescription anticoagulants. is noted to be taking Eliquis as prescribed by Dr. Cohen. Pt advised to continue to take anticoagulant as ordered until he is cleared to hold the anticoagulant by his prescribning provider. Informed that we would call him re the medication hold after receiving authorization from his prescribing provider. Anticoagulant Hold Fax back sheet requesting authorization to hold Eliquis for3 days was faxed to [phone]. Will monitor for return of Anticoagulant Fax Back Sheet, and update pt and chart accordingly. Opioid Risks and Pain Management: Reviewed salient points within Acute Opioid Therapy Informed Consent. denies any questionsor concerns. Offered pt a copy of consent for home reference. Signed Consent Form passed to the [place] OR crew scheduler for scanning. Reviewed with that he is likely to experience some incisional pain as well as throat discomfort and difficulty swallowing postoperatively. Reviewed some strategies to ease swallowing during the acute recovery period. Discussed with pt expectations re postoperative incisional and extremity pain, to include expectations re potential new or increased N/T. See PDMP query below. Reviewed current and historical opioid use. Is not noted to be on opioids currently. Patient is on Methadone, by [facility] counselor Gisella Is noted to be on low dose opioids currently; reviewed with pt to make efforts to minimizeopioid use preop as this will aid post-op pain management Acute post-operative pain mgmt is expected to be ordered by [facility] [place]. Reviewed in detail non-opioid pain mgmt strategies that should be put in place postoperatively to minimize opioid use. Strategies discussed included: rest and relaxation, activity modification, regularrepositioning, regular Acetaminophen use, hourly ice application for local analgesia/inflammation. Explained that the non-opioid pain mgmt strategies are intended to be the first line of treatment to assist with his postop pain. Instructed to Initiate the regular use of ice and OTC medication immediately upon return home, even if this was not documented in his discharge instructions. Reinforced with pt that he should contiue the non- opioid pain mgmt treatments for as long as he is requiring any opioids; that the opioid is the first treatment that should be discontinued. Advised that the opioid pain medication that will be prescribed is to be used to supplement the non-opioid methods. Advised pt that he is to take the least amt of opioid possible, and the expectation is that he will reduce use as the postoperative pain subsides. Advised pt that he should never exceed the prescribed amt without obtaining authorization from someone on the surgical care team. Provided instructions and general expectations re prescription refill practices/timing. Acute Opioid Prescribing: Opioid PDMP 08/15/2021 [place] PDMP Query Date 08/15/2021 Comment No scripts No flowsheet data found. Acute Opioid Specific Questions 08/15/2021 Date Acute Consent signed 08/08/2021 Considered the risk of opioid misuse, abuse, diversion? Yes Some recent data might be hidden Activity: Reviewed with our expectations re activity postoperatively, to include use of good body mechanics, to relax when moving rather than tensing/guarding, and our expectations re progressive walking upon return home. Advised that he would not be able to drive while taking opioid pain medication and while wearing a cervical collar. Home Support/Services Expected: Discussed home environment and support available following discharge. Patient has the support of SO at discharge. It's anticipated that pt will go home. Employment Status/Disability/FMLA: Employment status: unable to work due to pain level Postoperative PT Evaluation: Given provider preference, current physical capacity, and/or work demands, discussed value of and timing of a Spine Center PT evaluation in coordination with surgeon's hospital check. has opted to defer PT at this time. A copy of Spine Center Pre/Post-Operative Reference sheet provided to pt; reviewed the content. Encouraged to review these instructions prior to coming into the hospital and then again upon return home so that the instructions will be recalled easily. verbalized understanding of the information reviewed.. was given the contact information for the Spine Center Nursing staff; he was encouraged to call pre or postoperatively with anyquestions or concerns. documented in this encounter Plan of Treatment Upcoming Encounters Date Type Specialty Care Team Description 03/27/2022 Appointment Radiology Harjeet Castorena MD [facility] [address] [facility] [place], [place] [address] (Wo rk) 03/27/2022 Office Visit Pain and Spine Center Greer Castorena MD [facility] [place], [place] [address] (Wo rk) documented as of [...] filedocumented in this encounter Care Teams Car Inspection And Repair Manager Relationship Specialty Start Date End Date Glendy Cohen MD PCP - General 08/12/12 [address] [place] [address] documented as of this encounter
--- OUTSIDE RECORDS SUMMARY | 2022-01-31 15:46 | XMS_ITS | Encounter Summary ---
:1980 Author Organization [facility] [place] [address] Care Team Providers Name Role Phone Glendy Cohen MD Primary Care Provider Reason for Referral Consultation (Routine) - Closed Specialty Diagnoses / Procedures Referred By Contact Refer red To Contact Pain and Spine Center Diagnoses Cervical disc disorder with radiculopathy of mid-cervical region Pain- Cervical radiculopathy/ scheduled for C5-C7 ACDF 12/24/21 w/ AMP/ ?perioperative pain mgmt options Harjeet Castorena MD [facility] Pain And Joint Visit with PHYSIOTHERAPY ASSISTANT/JEG per PHYSIOTHERAPY ASSISTANT request Time held on 09/20/21 per [facility] [place] [address] [place] [address] Phone: Fax: Referral ID Status Reason Start Date Expiration Date Visits V isits Requested Authorized [id number] Closed Consult, 08/08/2021 08/08/2022 1 1 Test & Treat Reason for Visit Reason Comments Neck Pain Back Pain Bilateral Arm Pain Consultation (Routine) - Authorized Specialty Diagnoses / Procedures Referred By Contact Refer red To Contact Pain and Spine Center Diagnoses Cervical spondylosis with radiculopathy Cervical spondylosis /right C7 symptoms/ MRI (L) 05/01/22 & Xray 07/22/21 in edh Antonina Abdul [facility] Pain And HOMICIDE SQUAD SERGEANT Spine [facility] enter [address] [place] [phone] Fax: Referral ID Status Reason Start Date Expiration Visits Visits Date Requested Authorized [id number] Authorized Consult, 07/22/2021 07/22/2022 3 3 Test & Treat Encounter Details Date Type Department Care Team Description 08/08/2021 Office Visit Pain and Spine Center Harjeet Castorena, Ce rvical disc disorder at [facility] MD with radiculopathy of [address] [facility] [address] [place], [place] [facility] [place] [address] [place] [address] [phone] Social History Tobacco Use Types Packs/Day Years Used Date Current Every Day Smoker Cigarettes 0.5 11 Smokeless Tobacco: Never Used Comments: avs information given Alcohol Use Standard Drinks/Week Comments Yes 3 (1 standard drink = 0.6 oz pure alcoho l) 24oz [place] hard lemonade Alcohol Habits Answer Date Recorded How often do you have a drink containing Not asked alcohol? How many drinks containing alcohol do you have Not asked on a typical day when you are drinking? How often do you have six or more drinks on Not asked one occasion? Comment: 24oz [place] hard lemonade 10/30/2017 Sex Assigned at Date Recorded Not on file documented as of this encounter Last Filed Vital Signs Vital Sign Reading Time Taken Comments Blood Pressure 113/73 08/08/2021 1:36 PM EDT Pulse 75 08/08/2021 1:36 PM EDT Temperature - - Respiratory Rate - - Oxygen Saturation - - Inhaled Oxygen Concentration - - Weight 81.6 kg (180 lb) 08/08/2021 1:36 PM EDT Height 170.2 cm (5' 7) 08/08/2021 1:36 PM EDT Body Mass Index 28.19 08/08/2021 1:36 PM EDT documented in this encounter Progress Notes Harjeet Castorena MD - 08/08/2021 1:40 PM EDT Chief complaint: Neck pain radiating to right greater than left upper extremity History of present illness: Mr. Mcbride is a 41-year-old [id number] male whom I am seeing inconsultation for Antonina Abdul regards to his neck pain that radiates to his right posterior lateralarm and forearm. He has also had episodes where he radiates to his left upper extremity in a similardistribution, but more recently it has been predominantly on the right side. He has had the symptomson and off over the past 10 years. He describes numbness in the same distribution as the pain can affect all the fingers of his right hand. His right hand feels weak to him. His pain is worse with neckextension and improves with neck flexion. The pain bothers him at night. He denies any changes in his gait or balance. He has some difficulty with fine motor skills in his right hand. He denies constitutional symptoms or change in his bowel or bladder function. He is currently taking Flexeril, Tylenol, and high-dose methadone, and he finds the methadone somewhat helpful. He has done many months of physical therapy with no improvement. He has had multiple cervical epidural steroid injections with shor t-term benefit. He has not had prior cervical spine surgery. He has had 2 prior lumbar decompression. Past medical history: Psoriasis, DVT in the past, for which he takes Eliquis Past surgical history: Appendectomy, lumbar surgery as above Medications and allergies were reviewed and are intermediate. He is on high-dose methadone and Eliquis. Family history: Arthritis, cancer Social history: He does not work much these days. He does an occasional job. He quit smoking 2 months ago. He quit drinking last March. Review of systems: All negative except musculoskeletal as above. Physical exam Patient is 5 foot 7, 180 pounds, with a BMI of 28.2 General: Patient is comfortable, no acute distress Neck: His neck is nontender to palpation. He can flex 40 degrees, extend to neutral, rotate 40 degrees, and side bend 15 degrees. Neurological exam: He walks a normal gait. He can perform tandem gait. Motor exam reveals 5/5 strength of all upper extremity motors. He has diminished sensation throughout his right hand. Reflexes are3/4 in upper extremities, 3/4 at the knees, 2/4 at the ankles. He has a positive Spurling sign on the right. He has a positive Genaro sign bilaterally. He has no clonus. Shoulder exam: He has positive impingement signs in the left shoulder. Vascular exam: He has palpable radial pulses bilaterally. Imaging: AP and lateral flexion/extension x-rays of the cervical spine from 07/22/2021 were reviewed.There are large anterior osteophytes at C4-C5 and C5-C6. There is disc height loss at C5-C6 and C6-C7. There is no instability. MRI of the cervical spine from 05/01/2021 was reviewed. This shows large anterior osteophytes at C4-C5 and C5-C6. C4-C5, there is moderate left-sided foraminal narrowing. At C5-C6, there is moderate-severe bilateral foraminal narrowing. C6-C7 there is moderate to severe bilateral foraminal narrowing and possibly some mild cord compression. Assessment/plan: Mr. Mcbride is a 41-year-old male who presents with longstanding cervical radiculopathy in the setting of cervical spondylosis from C5-C7 with bilateral foraminal stenosis at those levels. He is somewhat hyperreflexic and has positive Genaro signs bilaterally, however, there is not significant spinal cord compression, and this may just be his baseline. If he has myelopathy, it wouldbe a very early, mild case. We discussed treatment options for his radiculopathy that include continue medication, further physical therapy, repeat injection, and surgery. At this point, he feels as though he has failed to improve despite extensive nonoperative treatment, and he wants to proceed with surgery. Surgery his case will be a C5-C7 ACDF. Consent was obtained. Risks were documented on the consent form. The typical recovery was reviewed. He will need a history and physical from his primary care physician and preadmission testing. I told him to avoid any aspirin, anti-inflammatory medication, or fish oil within 1 week of surgery. I told him to stop the Eliquis at least 3 days prior to surgery and anticipate holding it for 3 days after surgery. Given that he is young and already has some signs of degenerative changes C4-C5, I told him that he would likely need surgery at that level at somepoint in his life. I would not recommend fusing it at this point prophylactically as there is significantly more morbidity associated with a 3 level fusion as compared to a two-level fusion. I will have him see the pain clinic preoperatively to assist with a perioperative pain management plan given his high methadone dose. We will plan on having him stay 1 night in the hospital. I reinforced the needfor continued smoking cessation. We will schedule surgery at his convenience. Addendum: PCP recommended starting eliquis (can likely start POD#3) post-op x 1 month given h/o of DVT in the past. documented in this encounter Plan of Treatment Upcoming Encounters Date Type Specialty Care Team Description 03/27/2022 Appointment Radiology Harjeet Castorena MD [facility] SPINE [place], [place] [address] (Wo rk) 03/27/2022 Office Visit Pain and Spine Center Greer Castorena MD [facility] SP[facility] [place], [place] [address] (Wo rk) Scheduled Orders Name Type Priority Associated Diagnoses Order S chedule CBC (with Diff) Lab Routine Cervical disc disorder Ex pected: 08/08/2021, with radiculopathy of s: 02/07/2022 mid-cervical region Basic Metabolic Panel Lab Routine Cervical disc disor afia Expected: 08/08/2021, (non-fasting) with radiculopathy of Expir es: 02/07/2022 mid-cervical region Prothrombin Time Lab Routine Cervical disc disorder E xpected: 08/08/2021, with radiculopathy of s: 02/07/2022 mid-cervical region Scheduled Referrals Name Type Priority Associated Diagnoses Order S chedule Referral to Pain Outpatient Referral Routine Cervical disc dis order Ordered: and Spine Center with radiculopathy of (Internal only) mid-cervical region documented as of this encounter Goals Goal [...] of this encounter Results XR Cervical Spine 1 [...] have questions please contact the health healthcare financial analyst that requested your imaging first. ? Narrative [...] have questions please contact the health healthcare financial analyst that requested your imaging first. Harjeet Castorena MD IMG DX ORDERABLES documented in this encounter Visit Diagnoses Diagnosis Cervical disc disorder with radiculopath y of mid-cervical region Brachial neuritis or radiculitis nos Cervical disc disorder with radiculopath y of mid-cervical region Brachial neuritis or radiculitis nos documented in this encounter Care Teams Founder Ceo & President Relationship Specialty Start Date End Date Glendy Cohen MD PCP - General 08/12/12 [address] [place] [address] documented as of this encounter
--- OUTSIDE RECORDS SUMMARY | 2022-01-31 15:46 | XMS_ITS | Encounter Summary ---
:1980 Author Organization [facility] Address [place] [id number] Care Team Providers Name Role Phone Glendy Cohen MD Primary Care Provider Reason for Visit Reason Comments Follow-up Neck Pain Left Arm Pain Encounter Details Date Type Department Care Team Description 04/28/2018 [facility] Closed nondisplaced fracture of fourth cervical vertebra with routine healing, unspecified fracture morphology, subsequent encounter; Harriett HAMMOND Cervical disc disorder with radiculopath y of cervicothoracic region [facility] [address] [place], [place] [facility] [address] [place] [address] [phone] Social History Tobacco Use Types Packs/Day Years Used Date Former Smoker Cigarettes 0.5 11 Smokeless Tobacco: Never Used Comments: avs information given Alcohol Use Standard Drinks/Week Comments Yes 3 (1 standard drink = 0.6 oz pure alcoho l) [place] hard lemonade Alcohol Habits Answer Date Recorded How often do you have a drink containing Not asked alcohol? How many drinks containing alcohol do you have Not asked on a typical day when you are drinking? How often do you have six or more drinks on Not asked one occasion? Comment: [place] hard lemonade 10/30/2017 Sex Assigned at Date Recorded Not on file documented as of this encounter Last Filed Vital Signs Vital Sign Reading Time Taken Comments Blood Pressure 136/87 04/28/2018 11:04 AM EST Pulse - - Temperature - - Respiratory Rate - - Oxygen Saturation - - Inhaled Oxygen Concentration - - Weight 74.8 kg (165 lb) 04/28/2018 11:04 AM EST Height 172.7 cm (5' 8) 04/28/2018 11:04 AM EST Body Mass Index 25.09 04/28/2018 11:04 AM EST documented in this encounter Progress Notes Otilio Horn MD - 04/28/2018 11:00 AM EST Images from the original note were not included. [facility] [place] [facility] Otilio Horn MD, MS. Director Noah Fitzpatrick MD [facility] [place] [address] Glendy Cohen MD [address] [place] [address] [facility] [id number] Ty Herrera PT Spine Center Dear Colleagues, I had the pleasure of seeing this patient at the [facility] for surgical evaluation. Patient seen back in follow-up. ?? Dx: Mod cervical stenosis. Hyperextension injury. Small fx off of C4. Facets intact. C7 lamina fracture. With bilateral upper extremity paresthesias severe resolved. Patient has been followed by Ty Hairston PT. He has helped significantly with correction of the patient's significant postural kyphosis. However the patient continues to have significant symptoms. If he moves his head into extension he has significant left-sided C6 and C7 distribution pain. Numbness. Therefore he continues to hold his head in a forward flexed posture. It is now been a number of months since his injury without significant benefit. He remains neurologically intact. He is undergone formal physical therapy with cervical traction soft collar. He has been on medication to help him with his arm symptoms. He has been on methadone and Flexeril. Discussed gabapentin. I reviewed the films with my partner Dr. Castorena. We agreed that he has significant left-sided C5-6 and C6-7 foraminal stenosis. He does have a spinal cord injury at C4-5. We discussed the doing an anterior cervical decompression and fusion at C5-6 C6-7 and depending on flexion-extension views at C4-5. Request authorization for oblique images of the cervical spine by MRI to fully evaluate the foramen. I request authorization for flexion-extension views of the cervical spine. I will see him back in follow-up and discuss surgical intervention at that time. He is can continue his physical therapy. More than 50% of more than 40 minutes were spent on counseling specifically around the possibility of surgical intervention. Risks and benefits based on his symptoms. Goals of treatment. Also reviewed the films with him personally and answered all questions. Also discussed this patient with Dr. Castorena and return the room and discussed these discussions with the patient. Sincerely, Otilio Horn MD MS Curriculum Development Manager - Orthopedic Spine Surgery / Spine Center [employer] Digital Sales - Department of Orthopedic Surgery / Academics and Research Chief Strategy Officer - [facility] 05/02/2018 Spine Center Response Trends Patient-reported scores: myD-H [...] Description 03/27/2022 Appointment Radiology Harjeet Castorena MD [facility] SPINE [place] [address] (Wo rk) 03/27/2022 Office Visit Pain and Spine Center Greer Castorena MD [facility] SPINE [place], [place] [address] (Wo rk) documented as of this encounter Visit Diagnoses Diagnosis Closed nondisplaced fracture of fourth c ervical vertebra with routine healing, unspecified fracture morphology, subsequ ent encounter Cervical disc disorder with radiculopath y of cervicothoracic region Brachial neuritis or radiculitis nos documented in this encounter Care Teams Senior Air Director Relationship Specialty Start Date End Date Glendy Cohen MD PCP - General 08/12/12 [address] [place] [address] documented as of this encounter
--- OUTSIDE RECORDS SUMMARY | 2022-01-31 15:46 | XMS_ITS | Encounter Summary ---
:1980 Author Organization [facility] [place] [address] Care Team Providers Name Role Phone Glendy Cohen MD Primary Care Provider Encounter Details Date Type Department Care Team Description 08/26/2018 Telephone Spine Center at [facility] [place] [address] Social History Tobacco Use Types Packs/Day Years [...] on Not asked one occasion? Comment: 24oz [employer] hard lemonade 10/30/2017 Sex Assigned at Date Recorded Not on file documented as of this encounter Miscellaneous Notes Telephone Encounter - Lu Galan - 08/26/2018 10:46 AM EDT Left message for patient to call back [phone] to schedule a follow up appointment with Dr. Horn after his MRI's on 10/20/18. documented in this encounter Plan of Treatment Upcoming Encounters Date Type Specialty Care Team Description 03/27/2022 Appointment Radiology Harjeet Castorena MD [facility] [place], [place] [address] (Wo rk) 03/27/2022 Office Visit Pain and Spine Center Greer Castorena MD [facility] DR [facility]INE [facility] [place], [place] [address] (Wo rk) documented as of this encounter Visit Diagnoses Not on filedocumented in this encounter Care Teams Business Area Director Relationship Specialty Start Date End Date Glendy Cohen MD PCP - General 08/12/12 [address] [place] [address] documented as of this encounter
--- OUTSIDE RECORDS SUMMARY | 2022-01-31 15:46 | XMS_ITS | Encounter Summary ---
:1980 Author Organization [facility] [place] [address] Care Team Providers Name Role Phone Glendy Cohen MD Primary Care Provider Reason for Visit Diagnostic Test (Routine) - Canceled Specialty Diagnoses / Procedures Referred By Contact Refer red To Contact Radiology Diagnoses Closed nondisplaced fracture of fourth cervical vertebra with routine healing, unspecified fracture morphology, subsequent encounter Cervical disc disorder with radiculopathy of cervicothoracic region Otilio Horn MD [facility] Rad Mri Procedures MRI Cervical Spine wo Contrast (Generic) [facility] [place] [address] [place] [address] Referral ID Status Reason Start Expiration Visits Visits Date Date Requested Authorized [id number] Canceled Specialty 05/21/2018 08/19/2018 2 2 Service Requested Encounter Details Date Type Department Care Team Description 06/16/2018 Hospital Encounter MRI at [facility] Otilio Horn Canceled [facility] MD Su (P-INCONVENIENT DATE Drive ONE MED[facility] OR TIME) [facility] [id number] SPINE CENTER [phone] [place] [address] Social History Tobacco Use Types Packs/Day Years [...] documented as of this encounter Progress Notes Desi Hines RN - 06/11/2018 9:47 AM EST MRI PRE-SEDATION ASSESSMENT NOTE NAME: Jose Enrique Mcbride AGE: 38 y.o. : 1980 [address] [facility] [address] Male [phone] (home) [phone] (work) Telephone Information: Glendy Cohen MD None Allergies Allergen Reactions ??? Clindamycin Rash ??? Nsaids (Non-Steroidal Anti-Inflammatory Drug) History of ulcers Date/Time of call: June 11, 2018/9:45 AM/ PREVIOUS MRI SCAN? Yes, with PO sedation. HEIGHT: 5'8 WEIGHT: 172 lbs SCHEDULED SCAN: MRI CERVICAL SPINE WO CONTRAST [[id number]] 40 minutes, head first, supine. Where will study be performed? [facility] Reason for exam and clinical history: only left and right obliques are needed. pre op study. SUBJECTIVE: I am claustrophobic CAN YOU LAY FLAT? Yes, but pt request something under his head. AIRWAY ISSUES? No. DO YOU HAVE ANY INVOLUNTARY MOVEMENTS? No. DO YOU HAVE ANY PAIN? Yes. DO YOU TAKE PAIN MED ON A DAILY BASIS? Methadone ASSESSMENT: Pt appropriate for PO sedation. PLAN: Valium 5-10 mg PO per protocol. ( XXX ) You must have a shuttle driver present when you check in. This patient has been informed that they require a shuttle driver to drive them home after this procedure. In the absence of a shuttle driver, IR will not be able to sedate for your scan. Pt verbalized understanding of these instructions during the pre-procedure education via phone. Yes:MMP [place] of shuttle driver: [facility] Phone number: Dynamometer Tester unknown at this time, pt will bring shuttle driver and phone number. PRIOR SCAN DATE/S SEDATION TYPE SUCCESSFUL Multiple in 2011, 10-26-2017 MRI Cervical Spine Unknown ?? 02/17/18 cervical spine wo MRI Valium 5 mg PO x 2 Yes ? Revised 10/06/17 documented in this encounter Plan of Treatment Upcoming Encounters Date Type Specialty Care Team Description 03/27/2022 Appointment Radiology Harjeet Castorena MD [facility] [address] SPINE [place] [id number] (Wo rk) 03/27/2022 Office Visit [facility] Greer Castorena MD [facility] [address] [facility]INE [place], [place] [address] (Wo rk) documented as of this encounter Visit Diagnoses Not on filedocumented in this encounter Care Teams Project Account Manager Relationship Specialty Start Date End Date Glendy Cohen MD PCP - General 08/12/12 [address] [place] [address] documented as of this encounter
--- OUTSIDE RECORDS SUMMARY | 2022-01-31 15:47 | XMS_ITS | Encounter Summary ---
:1980 Author Organization [facility] [place] [address] Care Team Providers Name Role Phone Glendy Cohen MD Primary Care Provider Encounter Details Date Type Department Care Team Description 10/26/2017 Hospital Encounter [place] [address] Social History Tobacco Use Types Packs/Day Years Used Date Current Every Day Smoker Cigarettes 1 11 Smokeless Tobacco: Never Used Comments: avs information given Sex Assigned at Date Recorded Not on file documented as of this encounter Medications at Time of Discharge Medication Sig Dispensed Refills Start Date End Date valACYclovir (VALTREX) 500 Take 500 mg by 0 mg tablet mouth 2 times daily. albuterol (PROVENTIL Inhale 2 puffs 0 HFA;VENTOLIN HFA) 90 into the lungs mcg/actuation inhaler every 4 hours as needed. Use with spacer chlorhexidine (PERIDEX) Take 15 mLs by 15 mL 0 10/29/19 18 10/30/2017 0.12 % Mouthwash mouth 2 times daily for 2 days. acetaminophen (TYLENOL) 500 Take 2 tablets by 30 tablet 0 0 10/28/2017 12/25/2021 mg Tablet mouth every 6 hours. gabapentin (NEURONTIN) 300 Take 2 capsules 90 capsule 0 2 12/04/2017 mg Capsule by mouth 3 times daily. methylPREDNISolone (MEDROL) Take 1 tablet by 8 tablet 0 12/04/2017 4 mg Tablet mouth daily. Wed. 4mg at 9pm. Thur 4mg at 9am and 9pm. Fri take 4mg at 9am and 9pm. Sat 4mg at 9am, 9pm. Sun 4mg at 9am sodium chloride (OCEAN) 1 spray by Nasal 15 mL 0 201712/04/2017 0.65 % Aerosol, [place] route as needed for Congestion. Lisdexamfetamine (VYVANSE) Take 20 mg by 0 12/04/2017 20 mg Cap mouth daily. lisdexamfetamine (VYVANSE) Take 50 mg by 0 12/04/2017 50 mg capsule mouth every morning. traMADol (ULTRAM) 50 mg Take 50-100 mg by 0 10/28/2017 tablet mouth 4 times daily as needed. cyclobenzaprine (FLEXERIL) Take 10 mg by 0 02/17/2018 10 mg tablet mouth 3 times daily as needed. LACTOSE-FREE FOOD (ENSURE Take 1 Can by 0 12/04/2017 COMPLETE ORAL) mouth 3 times daily. promethazine (PHENERGAN) 25 Take 25 mg by 0 12/04/2017 mg tablet mouth every 6 hours as needed. pantoprazole (PROTONIX) 40 Take 40 mg by 0 12/04/2017 mg tablet mouth 2 times daily. diphenhydrAMINE (BENADRYL) Take 25-50 mg by 0 12/04/2017 25 mg tablet mouth 2 times daily as needed. chlorhexidine (HIBICLENS) 4 Apply topically 0 12/04/2017 % external liquid once a week. amitriptyline (ELAVIL) 100 Take 200 mg by 0 12/04/2017 mg tablet mouth nightly. documented as of this encounter Plan of Treatment Upcoming Encounters Date Type Specialty Care Team Description 03/27/2022 Appointment Radiology Harjeet Castorena MD [facility] [place], [place] [address] (Wo rk) 03/27/2022 Office Visit [facility] Greer Castorena MD [facility], [place] [address] (Wo rk) documented as of this encounter Procedures Procedure Name Priority Date/Time Associated Diagnosis Comme [facility] FILM LIBRARY STAT 10/26/2017 12:00 AM Results for this STORAGE ONLY CT EDT procedure ar e in [facility] the results section. documented in this encounter Results Film Library- Storage Only CT [facility] (10/26/2017 12:00 AM EDT) Specimen (Source) Anatomical Location Collection Method / Collectio n Time Received Time / Laterality Volume Narrative MELI - 10/26/2017 3:04 AM EDT This exam is for storage only and is aut o-finalizing. Noah Fitzpatrick MD IMG FILM LIBRARY ORDERABLES Performing Organization Address City/State/ZIP Code Phon e Number [place], [place] documented in this encounter Visit Diagnoses Not on filedocumented in this encounter Care Teams Molybdenum Steamer Operator Relationship Specialty Start Date End Date Glendy Cohen MD PCP - General 08/12/12 [address] [place] [address] documented as of this encounter
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
--- OUTSIDE RECORDS SUMMARY | 2022-01-31 15:47 | XMS_ITS | Encounter Summary ---
:1980 Author Organization [facility] [place] [address] Care Team Providers Name Role Phone Glendy Cohen MD Primary Care Provider Reason for Visit Auth/Cert Specialty Diagnoses / Procedures Referred By Contact Refer red To Contact Diagnoses nasal fracture Procedures PRO CLOSED TREATMENT NASAL FRACTURE W STABILIZATION NASAL BONE FX., CLOSED, W/ STABILIZATION (WRVU 1.88) Referral ID Status Reason Start Date Expiration Date Visits Requ ested Visits Authorized [id number] 1 1 Encounter Details Date Type Department Care Team Description 10/30/2017 Surgery Main Operating Room Marcio Frankel MD NASAL BONE FX CLOSED [facility] REDUCTI ON WITH [facility] DR KELLY WITH [facility] PLASTIC SURGE RY STABILIZATION (WRVU 1.88) [address] [address] [phone] Social History Tobacco Use Types Packs/Day Years Used Date Current Every Day Smoker Cigarettes 0.5 11 Smokeless Tobacco: Never Used Comments: avs information given Alcohol Use Standard Drinks/Week Comments Yes 3 (1 standard drink = 0.6 oz pure alcoho l) 24oz [place] hard lemonade Alcohol Habits Answer Date Recorded How often do you have a drink containing Not asked alcohol? How many drinks containing alcohol do you have Not asked on a typical day when you are drinking? How often do you have six or more drinks on Not asked one occasion? Comment: 24oz [place] hard lemonade 10/30/2017 Sex Assigned at Date Recorded Not on file documented as of this encounter Last Filed Vital Signs Vital Sign Reading Time Taken Comments Blood Pressure 154/88 10/30/2017 12:19 PM EDT Pulse 58 10/30/2017 12:19 PM EDT Temperature 36.6 ??C (97.9 ??F) 10/30/2017 12:19 PM EDT Respiratory Rate 16 10/30/2017 12:19 PM EDT Oxygen Saturation 98% 10/30/2017 12:19 [...] with each person. Pain (short term and fpc) ??? With any surgery there is some discomfort or pain. We will prescribe medicine for pain, usually a narcotic and an anti-inflammatory. You should take the medicine as prescribed and only as needed. ??? We recommend taking an kmjj-ugf-Vakywwh stool softener, such as Colace (docusate) or [...] as you heal. ??? You may use cjoe-uap-erhxccy nasal spray as needed for comfort. Swelling [...] nose is still bleeding, call the doctor manager transmission at [phone] or go to the nearest ER. Follow-up Appointment Future Appointments Date Time Provider Department Center 11/12/2017 11:00 AM Morena Bautista APRN [facility] 11/13/2017 2:20 PM Connie Conklin APRN Le[facility] 4[facility] 11/13/2017 3:30 PM [facility] DX ROOM 2 Xrnilay [facility] 11/13/2017 4:20 PM Otilio Horn MD Le[facility] Spine [facility] Contact your Doctor Office Hours: Thursday through Thursday, 8am-5pm. Call . On weekends or after office hours: Call [phone] and ask the perfect bind machine operator to page the Plastic Surgery Resident manager transmission. documented in this encounter Medications at Time [...] 15 mL 0 201712/04/2017 0.65 % Aerosol, [place] route as needed for Congestion. Lisdexamfetamine (VYVANSE) [...] ??? sodium chloride (OCEAN) 0.65 % Aerosol, [place] 1 spray by Nasal route as needed [...] Cans of beer per week Comment: 24oz [place] hard lemonade ??? Drug use: Yes Special: [...] Jones MD - 10/30/2017 3:32 PM EDT [facility] Operative Note Patient Name: Jose Enrique Mcbride : [id number] MR#: [id number] Case Date: 10/30/2017 Surgeon: Surgeon(s) and Role: [...] Note Patient Name: Jose Enrique Mcbride : [id number] MR#: [id number] Case Date: 10/30/2017 Surgeon: Surgeon(s) and Role: [...] Plas 4M [facility] 11/13/2017 3:30 PM [facility] DX ROOM 2 Xray [facility] 11/13/2017 4:20 PM Otil[facility] Horn [facility] Associated attestation - Stevie Frankel MD - 11/06/2017 11:32 AM EDT I was the attending physician supervising the resident in the above care and I was present with the resident for the entire procedure. documented in this encounter Plan of Treatment Upcoming Encounters Date Type Specialty Care Team Description 03/27/2022 Appointment Radiology Harjeet Castorena MD [facility] SPINE [place], [place] [address] (Wo rk) 03/27/2022 Office Visit Pain and Spine Center Greer Castorena MD [facility] [place], [place] [address] (Wo rk) documented as [...] morning @ 0830)1505 (Given - Provider: Ty Mauro, RN) 1,000 mg, Oral, ONCE, 1 dose, [...] Routine documented in this encounter Care Teams Structural Fitter Relationship Specialty Start Date End Date Glendy Cohen MD PCP - General 08/12/12 [address] [place] [address] documented as of this encounter
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
--- OUTSIDE RECORDS SUMMARY | 2022-01-31 15:47 | XMS_ITS | Encounter Summary ---
:1980 Author Organization [place] [address] Care Team Providers Name Role Phone Glendy Cohen MD Primary Care Provider Reason for Visit Reason Comments Neck Pain Encounter Details Date Type Department Care Team Description 12/04/2017 [facility] [place] [address] Closed nondisplaced Alpha Otilio Horn MD [facility] [place] [address] fracture of fourth [facility] cervical vertebra with Drive [place], [place] unspecified fra cture [id number] morphology, subsequent [phone] encounter Social History Tobacco Use Types Packs/Day Years Used Date Former Smoker Cigarettes 0.5 11 Smokeless Tobacco: Never Used Comments: avs information given Alcohol Use Standard Drinks/Week Comments Yes 3 (1 standard drink = 0.6 oz pure alcoho l) 24oz [place] hard lemonade Alcohol Habits Answer Date Recorded How often do you have a drink containing Not asked alcohol? How many drinks containing alcohol do you have Not asked on a typical day when you are drinking? How often do you have six or more drinks on Not asked one occasion? Comment: 24oz [place] hard lemonade 10/30/2017 Sex Assigned at Date Recorded Not on file documented as of this encounter Last Filed Vital Signs Vital Sign Reading Time Taken Comments Blood Pressure 128/76 12/04/2017 4:16 PM EDT Pulse 81 12/04/2017 4:16 PM EDT Temperature - - Respiratory Rate - - Oxygen Saturation - - Inhaled Oxygen Concentration - - Weight 72.6 kg (160 lb) 12/04/2017 4:16 PM EDT Height 170.2 cm (5' 7) 12/04/2017 4:16 PM EDT Body Mass Index 25.06 12/04/2017 4:16 PM EDT documented in this encounter Progress Notes Oitlio Horn MD - 12/04/2017 4:00 PM EDT Images from the original note were not included. Spine Center @ [facility] Otilio Horn MD, MS. Director Noah Fitzpatrick MD [facility] [place] [address] Glendy Cohen MD [address] [place] [address] [facility] [id number] Dear Colleagues, I had the pleasure of seeing this patient at the [facility] for surgical evaluation. Patient seen. Symptoms in UE sig improved. However if patient extends head still has sig left arm pain. Remains neuro intact. See my prior note from 10/27/2017. Coverted to soft collar. Avoid extension. RTC 8 weeks. If he still has symptoms then consider reimaging and surgery. Dx: Mod cervical stenosis. Hyperextension injury. Small fx off of C4. Facets intact. C7 lamina fracture. Sincerely, Otilio Horn MD MS Java Web Developer - Orthopedic Spine Surgery / Spine Center Manager Primary - Department of Orthopedic Surgery / Academics and Research Machine Lay Out Worker - [facility] of Medicine 12/06/2017 Spine Center Response Trends Patient-reported scores: myD-H [...] 03/27/2022 Appointment Radiology Harjeet Castorena MD [facility] DR SPINE CENTER [place], [place] [address] (Wo rk) 03/27/2022 Office Visit Pain and Spine Center Greer Castorena MD [facility] SPINE CENTER [place], [place] [address] (Wo rk) documented as of this encounter Results XR [...] healing, unspecified fracture morphology, subsequ ent encounter Closed nondisplaced fracture of fourth c ervical vertebra with routine healing, unspecified fracture morphology, subsequ ent encounter documented in this encounter Care Teams Compensation Supervisor Relationship Specialty Start Date End Date Glendy Cohen MD PCP - General 08/12/12 [address] [place] [address] documented as of this encounter
--- OUTSIDE RECORDS SUMMARY | 2022-01-31 15:47 | XMS_ITS | Encounter Summary ---
:1980 Author Organization [facility] [place] [address] Care Team Providers Name Role Phone Ilan Coffman MD Primary Care Provider [phone] Encounter Details Date Type Department Care Team Description 09/24/2010 Orders Only Spine Center at [facility] German Benson MD [facility] [place] [address] SPINE CENTER [phone] [place], [place] [address] (Wo rk) Social History Tobacco Use Types Packs/Day Years Used Date Never Assessed Sex Assigned at Date Recorded Not on file documented as of this encounter Plan of Treatment Upcoming Encounters Date Type Specialty Care Team Description 03/27/2022 Appointment Radiology Harjeet Castorena MD [facility] SPINE CENTER [place], [place] [address] (Wo rk) 03/27/2022 Office Visit Pain and Spine Center Greer Castorena MD [facility] SPINE [place], [place] [address] (Wo rk) documented as of this encounter Procedures Procedure Name Priority Date/Time Associated Diagnosis Comme nts FILM LIBRARY Routine 09/24/2010 8:40 PM Results f or this STORAGE ONLY MR EDT procedure ar e in SPINE the results section. documented in this encounter Results Film Library- Storage only MR Spine (09/24/2010 8:40 PM EDT) Specimen (Source) Anatomical Collection Method Collection Time Re ceived Time Location / / Volume Laterality 09/24/2010 8:40 PM EDT Narrative [facility] - 12/28/2013 11:02 PM EDT This is a non-reportable exam. Procedure Note Isrrael Dye - 12/28/2013Formatti ng of this note might be different from the original. This is a non-reportable exam. German Benson MD IMG FILM LIBRARY ORDERABLES Performing Organization Address City/State/ZIP Code Phon e Number [facility] [address] [facility] [place] [address] documented in this encounter Visit Diagnoses Not on filedocumented in this encounter Care Teams Agriculture Laborer Relationship Specialty Start Date End Date Ilan Coffman MD PCP - General 04/02/10 08/11/[address] [place] [address] documented as of this encounter
--- OUTSIDE RECORDS SUMMARY | 2022-01-31 15:47 | XMS_ITS | Encounter Summary ---
:1980 Author Organization [facility] [place] [address] Care Team Providers Name Role Phone Glendy Cohen MD Primary Care Provider Encounter Details Date Type Department Care Team Description 10/26/2017 Hospital Encounter [place] [address] Social History Tobacco Use Types Packs/Day [...] 15 mL 0 201712/04/2017 0.65 % Aerosol, [place] route as needed for Congestion. Lisdexamfetamine (VYVANSE) [...] Castorena MD [facility] SPINE [place], [place] [address] (Wo rk) 03/27/2022 Office Visit Pain and Spine Center Greer Castorena MD [facility] SPINE [place], [place] [address] (Wo rk) documented as of this encounter Procedures Procedure Name Priority Date/Time Associated Diagnosis Comme [facility] FILM LIBRARY STAT 10/26/2017 12:10 AM Results for this STORAGE ONLY CT EDT procedure ar e in SPINE the results section. documented in this encounter Results Film Library- Storage Only CT Spine (10/26/2017 12:10 AM EDT) Specimen (Source) Anatomical Location Collection Method / Collectio n Time Received Time / Laterality Volume Narrative MELI - 10/26/2017 3:39 AM EDT This exam is for storage only and is aut o-finalizing. Noah Fitzpatrick MD IMG FILM LIBRARY ORDERABLES Performing Organization Address City/State/ZIP Code Phon e Number [place], [place] documented in this encounter Visit Diagnoses Not on filedocumented in this encounter Care Teams Integrated Circuit Ic Layout Designer Relationship Specialty Start Date End Date Glendy Cohen MD PCP - General 08/12/12 [address] [place] [address] documented as of this encounter
--- OUTSIDE RECORDS SUMMARY | 2022-01-31 15:47 | XMS_ITS | Encounter Summary ---
:1980 Author Organization [facility] [place] [address] Care Team Providers Name Role Phone Ilan Coffman MD Primary Care Provider Encounter Details Date Type Department Care Team Description 06/16/2012 External Results XRay at [facility] Nisha Da Silva MD [address] [place] [address] [place] [phone] [place], [place] [address] (Wo rk) Social History Tobacco Use Types Packs/Day Years Used Date Never Assessed Sex Assigned at Date Recorded Not on file documented as of this encounter Plan of Treatment Upcoming Encounters Date Type Specialty Care Team Description 03/27/2022 Appointment Radiology Harjeet Castorena MD [facility] SPINE [place], [place] [address] (Wo rk) 03/27/2022 Office Visit Pain and Spine Center Greer Castorena MD [facility] SPINE [place], [place] [address] (Wo rk) documented as of this encounter Procedures Procedure Name Priority Date/Time Associated Diagnosis Comme nts MRI/MRA SCAN Routine 06/27/2010 MRI/MRA SCAN Routine 06/27/2010 MRI/MRA SCAN Routine 06/03/2007 documented in this encounter Results Scan Doc: MRI/MRA (06/27/2010) Anatomical Region Laterality Modality Other Narrative This result has an attachment that is no t available. Nisha Da Silva MD MEDIA MGR SCAN EXT ORDR/RSLT Scan Doc: MRI/MRA (06/27/2010) Anatomical Region Laterality Modality Other Nisha Da Silva MD MEDIA MGR SCAN EXT ORDR/RSLT Scan Doc: MRI/MRA (06/03/2007) Anatomical Region Laterality Modality Other Narrative This result has an attachment that is no t available. Scanning Provider MEDIA MGR SCAN EXT ORDR/RSLT documented in this encounter Visit Diagnoses Not on filedocumented in this encounter Care Teams Filter Press Supervisor Relationship Specialty Start Date End Date Ilan Coffman MD PCP - General 04/02/10 08/11/[address] [place] [address] documented as of this encounter
--- OUTSIDE RECORDS SUMMARY | 2022-01-31 15:47 | XMS_ITS | Encounter Summary ---
:1980 Author Organization [facility] [place] [address] Care Team Providers Name Role Phone Glendy Cohen MD Primary Care Provider Encounter Details Date Type Department Care Team Description 10/26/2017 Hospital Encounter [place] [address] Social History Tobacco Use Types Packs/Day [...] 15 mL 0 201712/04/2017 0.65 % Aerosol, [place] route as needed for Congestion. Lisdexamfetamine (VYVANSE) [...] Description 03/27/2022 Appointment Radiology Harjeet Castorena MD [facility] SPINE [place], [place] [address] (Wo rk) 03/27/2022 Office Visit Pain and Spine Center Greer Castorena MD [facility] SPINE [place], [place] [address] (Wo rk) documented as of this encounter Procedures Procedure Name Priority Date/Time Associated Diagnosis Comme [facility] FILM LIBRARY STAT 10/26/2017 12:05 AM Results for this STORAGE ONLY CT EDT procedure ar e in CHEST ABDOMEN the results PELVIS section. documented in this encounter Results Film Library- Storage Only CT Chest Abdomen Pelvis (10/26/2017 12:05 AM EDT) Specimen (Source) Anatomical Location Collection Method / Collectio n Time Received Time / Laterality Volume Narrative MELI - 10/26/2017 3:06 AM EDT This exam is for storage only and is aut o-finalizing. oNah Fitzpatrick MD IMG FILM LIBRARY ORDERABLES Performing Organization Address City/State/ZIP Code Phon e Number [place], [place] documented in this encounter Visit Diagnoses Not on filedocumented in this encounter Care Teams Director Of Adult Epilepsy Relationship Specialty Start Date End Date Glendy Cohen MD PCP - General 08/12/12 [address] [place] [address] documented as of this encounter
--- OUTSIDE RECORDS SUMMARY | 2022-01-31 15:47 | XMS_ITS | Encounter Summary ---
:1980 Author Organization [facility] [address] Care Team Providers Name Role Phone Ilan Coffman MD Primary Care Provider [phone] Encounter Details Date Type Department Care Team Description 09/23/2011 Orders Only Spine Center at [facility] German Benson MD [facility] [place] [address] SPINE CENTER [phone] [place], [place] [address] (Wo rk) Social History Tobacco Use Types Packs/Day Years Used Date Never Assessed Sex Assigned at Date Recorded Not on file documented as of this encounter Plan of Treatment Upcoming Encounters Date Type Specialty Care Team Description 03/27/2022 Appointment Radiology Harjeet Castorena MD [facility] SPINE [place], [place] [address] (Wo rk) 03/27/2022 Office Visit Pain and Spine Center Greer Castorena MD [facility] SPINE [place], [place] [address] (Wo rk) documented as of this encounter Procedures Procedure Name Priority Date/Time Associated Diagnosis Comme nts FILM LIBRARY Routine 09/23/2011 8:38 PM Results f or this STORAGE ONLY MR EDT procedure ar e in SPINE the results section. documented in this encounter Results Film Library- Storage only MR Spine (09/23/2011 8:38 PM EDT) Anatomical Region Laterality Modality Other Specimen (Source) Anatomical Collection Method Collection Time Re ceived Time Location / / Volume Laterality 09/23/2011 8:38 PM EDT Narrative 06/28/2013 7:25 PM EST This is a non-reportable exam. Procedure Note MarnieKimo - 06/28/2013Formatting of t his note might be different from the original. This is a non-reportable exam. German Benson MD IM FILM LIBRARY ORDERABLES documented in this encounter Visit Diagnoses Not on filedocumented in this encounter Care Teams Tool Builder Relationship Specialty Start Date End Date Ilan Coffman MD PCP - General 04/02/10 08/11/12 [address] [facility] [place] [address] documented as of this encounter
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
--- OUTSIDE RECORDS SUMMARY | 2022-01-31 15:47 | XMS_ITS | Encounter Summary ---
:1980 Author Organization [place] [place] [address] Care Team Providers Name Role Phone Ilan Coffman MD Primary Care Provider [phone] Encounter Details Date Type Department Care Team Description 08/02/2010 Orders Only Spine Center at [facility] German Benson MD [facility] [place] [address] SPINE CENTER [phone] [place], [place] [address] (Wo rk) Social History Tobacco Use Types Packs/Day Years Used Date Never Assessed Sex Assigned at Date Recorded Not on file documented as of this encounter Plan of Treatment Upcoming Encounters Date Type Specialty Care Team Description 03/27/2022 Appointment Radiology Harjeet Castorena MD [facility] SPINE [place], [place] [address] (Wo rk) 03/27/2022 Office Visit Pain and Spine Center Greer Castorena MD [facility] SPINE [place], [place] [address] (Wo rk) documented as of this encounter Procedures Procedure Name Priority Date/Time Associated Diagnosis Comme nts FILM LIBRARY Routine 08/02/2010 8:41 PM Results f or this STORAGE ONLY DX EDT procedure ar e in SPINE the results section. documented in this encounter Results Film Library- Storage only DX Spine (08/02/2010 8:41 PM EDT) Specimen (Source) Anatomical Collection Method Collection Time Re ceived Time Location / / Volume Laterality 08/02/2010 8:41 PM EDT Narrative [facility] - 12/28/2013 11:02 PM EDT This is a non-reportable exam. Procedure Note Isrrael yDe - 12/28/2013Formatti ng of this note might be different from the original. This is a non-reportable exam. German Benson MD IMG FILM LIBRARY ORDERABLES Performing Organization Address City/State/ZIP Code Phon e Number [facility] [address] [facility] 

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
--- OUTSIDE RECORDS SUMMARY | 2022-01-31 15:47 | XMS_ITS | Encounter Summary ---
:1980 Author Organization [facility] [place] [address] Care Team Providers Name Role Phone Glendy Cohen MD Primary Care Provider Reason for Visit Auth/Cert Specialty Diagnoses / Procedures Referred By Contact Refer red To Contact Diagnoses TRAUMA ALERT Procedures AIRO Referral ID Status Reason Start Date Expiration Date Visits Requ ested Visits Authorized [id number] 1 1 Encounter Details Date Type Department Care Team Description 10/26/2017 Hospital Encounter [facility] at at Moreno Acosta MD [facility] [address] [place] [id number] [phone] (Wo rk) Social History Tobacco Use Types [...] 15 mL 0 201712/04/2017 0.65 % Aerosol, [place] route as needed for Congestion. Lisdexamfetamine (VYVANSE) [...] Appointment Radiology Harjeet Castorena MD [facility] [place], [place] [address] (Wo rk) 03/27/2022 Office Visit [facility] Greer Castorena MD [facility] [address] [facility] [place], [place] [address] (Wo rk) documented as of this encounter Visit Diagnoses Not on filedocumented in this encounter Care Teams Grants Administrator Relationship Specialty Start Date End Date Glendy Cohen MD PCP - General 08/12/12 [address] [facility] [address] [place] [address] documented as of this encounter
--- OUTSIDE RECORDS SUMMARY | 2022-01-31 15:47 | XMS_ITS | Encounter Summary ---
:1980 Author Organization [facility] [place] [address] Care Team Providers Name Role Phone Ilan Coffman MD Primary Care Provider [phone] Encounter Details Date Type Department Care Team Description 06/03/2007 Orders Only Spine Center at [facility] German Benson MD [facility] [place] [address] SPINE CENTER [phone] [place], [place] [address] (Wo rk) Social History Tobacco Use Types Packs/Day Years Used Date Never Assessed Sex Assigned at Date Recorded Not on file documented as of this encounter Plan of Treatment Upcoming Encounters Date Type Specialty Care Team Description 03/27/2022 Appointment Radiology Harjeet Castorena MD [facility] SPINE [place], [place] [address] (Wo rk) 03/27/2022 Office Visit Pain and Spine Center Greer Castorena MD [facility] SPINE [place], [place] [address] (Wo rk) documented as of this encounter Procedures Procedure Name Priority Date/Time Associated Diagnosis Comme nts FILM LIBRARY Routine 06/03/2007 12:06 PM Results for this STORAGE ONLY MR EST procedure ar e in SPINE the results section. documented in this encounter Results Film Library- Storage only MR Spine (06/03/2007 12:06 PM EST) Anatomical Region Laterality Modality Other Specimen (Source) Anatomical Collection Method Collection Time Re ceived Time Location / / Volume Laterality 06/03/2007 12:06 PM EST Narrative 06/28/2013 7:25 PM EST This is a non-reportable exam. Procedure Note Marnie, Kimo - 06/28/2013Formatting of t his note might be different from the original. This is a non-reportable exam. German Benson MD IM FILM LIBRARY ORDERABLES documented in this encounter Visit Diagnoses Not on filedocumented in this encounter Care Teams Loan Assistant Relationship Specialty Start Date End Date Ilan Coffman MD PCP - General 04/02/10 08/11/[address] [place] [address] documented as of this encounter
--- OUTSIDE RECORDS SUMMARY | 2022-01-31 15:47 | XMS_ITS | Encounter Summary ---
:1980 Author Organization [facility] [place] [address] Care Team Providers Name Role Phone Ilan Coffman MD Primary Care Provider Encounter Details Date Type Department Care Team Description 08/11/2012 Abstract Spine Center at [facility] [place] [address] Social History Tobacco Use Types Packs/Day Years Used Date Never Assessed Sex Assigned at Date Recorded Not on file documented as of this encounter Plan of Treatment Upcoming Encounters Date Type Specialty Care Team Description 03/27/2022 Appointment Radiology Harjeet Castorena MD [facility] SPINE [place], [place] [address] (Wo rk) 03/27/2022 Office Visit Pain [facility] Spine Center Greer Castorena MD [facility] SPINE [place], [place] [address] (Wo rk) documented as of this encounter Visit Diagnoses Not on filedocumented in this encounter Care Teams Rectification Printer Relationship Specialty Start Date End Date Ilan Coffman MD PCP - General 04/02/10 08/11/12 [address] [place] [address] documented as of this encounter
--- OUTSIDE RECORDS SUMMARY | 2022-01-31 15:47 | XMS_ITS | Encounter Summary ---
:1980 Author Organization [facility] [place] [address] Care Team Providers Name Role Phone Glendy Cohen MD Primary Care Provider Encounter Details Date Type Department Care Team Description 10/26/2017 Hospital Encounter [place] [address] Social History Tobacco Use Types Packs/Day [...] 15 mL 0 201712/04/2017 0.65 % Aerosol, Hendricks route as needed for Congestion. Lisdexamfetamine (VYVANSE) [...] Castorena MD [facility] SPINE [place], [place] [address] (Wo rk) 03/27/2022 Office Visit Pain [facility] Sp[facility] Greer Castorena MD [facility] SPINE [place], [place] [address] (Wo rk) documented as of this encounter Procedures Procedure Name Priority Date/Time Associated Diagnosis Comme nts REQUEST FOR 2ND STAT 10/26/2017 4:07 AM Result s for this READ CT CHEST EDT procedure are in ABDOMEN PELVIS the results section. documented in this encounter Results Request For 2nd Read CT Chest Abdomen [...] on filedocumented in this encounter Care Teams Operations Engineer Relationship Specialty Start Date End Date Glendy Cohen MD PCP - General 08/12/12 [address] [place] [address] documented as of this encounter
--- OUTSIDE RECORDS SUMMARY | 2022-01-31 15:47 | XMS_ITS | Encounter Summary ---
:1980 Author Organization [facility] [place] [address] Care Team Providers Name Role Phone Ilan Coffman MD Primary Care Provider [phone] Encounter Details Date Type Department Care Team Description 08/05/2011 Orders Only Spine Center at [facility] German Benson MD [facility] [place] [address] SPINE CENTER [phone] [place], [place] [address] (Wo rk) Social History Tobacco Use Types Packs/Day Years Used Date Never Assessed Sex Assigned at Date Recorded Not on file documented as of this encounter Plan of Treatment Upcoming Encounters Date Type Specialty Care Team Description 03/27/2022 Appointment Radiology Harjeet Castorena MD [facility] SPINE [place], [place] [address] (Wo rk) 03/27/2022 Office Visit Pain and Spine Center Greer Castorena MD [facility] SPINE [place], [place] [address] (Wo rk) documented as of this encounter Procedures Procedure Name Priority Date/Time Associated Diagnosis Comme nts FILM LIBRARY Routine 08/05/2011 8:39 PM Results f or this STORAGE ONLY DX EDT procedure ar e in SPINE the results section. documented in this encounter Results Film Library- Storage only DX Spine (08/05/2011 8:39 PM EDT) Anatomical Region Laterality Modality Other Specimen (Source) Anatomical Collection Method Collection Time Re ceived Time Location / / Volume Laterality 08/05/2011 8:39 PM EDT Narrative 06/28/2013 7:25 PM EST This is a non-reportable exam. Procedure Note MarnieKimo - 06/28/2013Formatting of t his note might be different from the original. This is a non-reportable exam. German Benson MD IM FILM LIBRARY ORDERABLES documented in this encounter Visit Diagnoses Not on filedocumented in this encounter Care Teams Helpdesk Technician Relationship Specialty Start Date End Date Ilan Coffman MD PCP - General 04/02/10 08/11/12 [address] [facility] [address] documented as of this encounter
--- OUTSIDE RECORDS SUMMARY | 2022-01-31 15:47 | XMS_ITS | Encounter Summary ---
:1980 Author Organization [facility] [place] [address] Care Team Providers Name Role Phone Glendy Cohen MD Primary Care Provider Encounter Details Date Type Department Care Team Description 10/26/2017 Hospital Encounter [place] [address] Social History Tobacco Use Types Packs/Day [...] 15 mL 0 201712/04/2017 0.65 % Aerosol, [place] route as needed for Congestion. Lisdexamfetamine (VYVANSE) [...] Description 03/27/2022 Appointment Radiology Harjeet Castorena MD [facility] SPINE [place], [place] [address] (Wo rk) 03/27/2022 Office Visit Pain and Spine Center Greer Castorena MD [facility] SPINE [place], [place] [address] (Wo rk) documented as of this encounter Procedures Procedure Name Priority Date/Time Associated Diagnosis Comme nts REQUEST FOR 2ND STAT 10/26/2017 4:05 AM Result s for this READ CT HEAD AND EDT procedure a re in SPINE the [...] head, face, and cervical spine performed at [facility] COMPARISON: None FINDINGS: Face: The exam [...] head, face, and cervical spine performed at [facility] COMPARISON: None FINDINGS: Face: The exam [...] Noah Fitzpatrick MD IMClaudio OUTSIDE INTERPRETATION O RDERAPAT Request For 2nd Read CT Head And [...] head, face, and cervical spine performed at [facility] COMPARISON: None FINDINGS: Face: The exam [...] head, face, and cervical spine performed at [facility] COMPARISON: None FINDINGS: Face: The exam [...] on filedocumented in this encounter Care Teams Socket Welder Helper Relationship Specialty Start Date End Date Glendy Cohen MD PCP - General 08/12/12 [address] [place] [address] documented as of this encounter
--- OUTSIDE RECORDS SUMMARY | 2022-01-31 15:47 | XMS_ITS | Encounter Summary ---
:1980 Author Organization [facility] [place] [address] Care Team Providers Name Role Phone Glendy Cohen MD Primary Care Provider Encounter Details Date Type Department Care Team Description 12/04/2017 Hospital Encounter XRay at [facility] Noah Fitzpatrick Neck pain, chronic [address] [place] [address] Dr Mala MD [facility] [address] [place] [phone] [place] [address] Social History Tobacco Use Types Packs/Day Years Used Date Former Smoker Cigarettes 0.5 11 Smokeless Tobacco: Never Used Comments: avs information given Alcohol Use Standard Drinks/Week Comments Yes 3 (1 standard drink = 0.6 oz pure alcoho l) 24oz [place] hard lemonade Alcohol Habits Answer Date Recorded How often do you have a drink containing Not asked alcohol? How many drinks containing alcohol do you have Not asked on a typical day when you are drinking? How often do you have six or more drinks on Not asked one occasion? Comment: 24oz [place] hard lemonade 10/30/2017 Sex Assigned at Date [...] Description 03/27/2022 Appointment Radiology Harjeet Castorena MD [facility] [address] SPINE [place], [place] [address] (Wo rk) 03/27/2022 Office Visit Pain and Spine Center Greer Castorena MD 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 documented in this encounter [...] site. Noah Fitzpatrick MD IMG DX ORDERABLES documented in this encounter Visit Diagnoses Diagnosis Neck pain, chronic Cervicalgia documented in this encounter Care Teams C Application Developer Relationship Specialty Start Date End Date Glendy Cohen MD PCP - General 08/12/12 [address] [place] [address] documented as of this encounter
--- OUTSIDE RECORDS SUMMARY | 2022-01-31 15:47 | XMS_ITS | Encounter Summary ---
:1980 Author Organization [facility] [place] [address] Care Team Providers Name Role Phone Ilan Coffman MD Primary Care Provider [phone] Encounter Details Date Type Department Care Team Description 06/18/2012 External Results XRay at [facility] Provider, Scanning [address] [place] [address] [place] [address] Social History Tobacco Use Types Packs/Day Years Used Date Never Assessed Sex Assigned at Date Recorded Not on file documented as of this encounter Plan of Treatment Upcoming Encounters Date Type Specialty Care Team Description 03/27/2022 Appointment Radiology Harjeet Castorena MD [facility] SPINE [place], [place] [address] (Wo rk) 03/27/2022 Office Visit Pain and Spine Center Greer Castorena MD [facility] SPINE [place], [place] [address] (Wo rk) documented as of this encounter Procedures Procedure Name Priority Date/Time Associated Diagnosis Comme nts MRI/MRA SCAN Routine 09/23/2011 DIAGNOSTIC RADIOLOGY SCAN Routine 08/05/2011 MRI/MRA SCAN Routine 09/24/2010 DIAGNOSTIC RADIOLOGY SCAN Routine 08/02/2010 documented in this encounter Results Scan Doc: MRI/MRA (09/23/2011) Anatomical Region Laterality Modality Other Narrative This result has an attachment that is no t available. Scanning Provider MEDIA MGR SCAN EXT ORDR/RSLT Scan Doc: Diagnostic Radiology (08/05/2011) Anatomical Region Laterality Modality Other Narrative This result has an attachment that is no t available. Sigrid Myers MD MEDIA MGR SCAN EXT ORDR/RSLT Scan Doc: MRI/MRA (09/24/2010) Anatomical Region Laterality Modality Other Narrative This result has an attachment that is no t available. Mauricio Gaviria MD MEDIA MGR SCAN EXT ORDR/RSLT Scan Doc: Diagnostic Radiology (08/02/2010) Anatomical Region Laterality Modality Other Narrative This result has an attachment that is no t available. Mauricio Gaviria MD MEDIA MGR SCAN EXT ORDR/RSLT documented in this encounter Visit Diagnoses Not on filedocumented in this encounter Care Teams Clerical Assistant Relationship Specialty Start Date End Date Ilan Coffman MD PCP - General 04/02/10 08/11/12 [address] [place] [address] documented as of this encounter
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
--- OUTSIDE RECORDS SUMMARY | 2022-01-31 15:49 | XMS_ITS | Encounter Summary ---
:1980 Author Organization [facility] Address [address] [place] [address] Care Team Providers Name Role Phone Cesar Clayton MD Primary Care Provider Unavailable Encounter Details Date Type Department Care Team Description 09/23/2011 Hospital Encounter [facility] - Mauricio Gaviria [facility] [address] [facility] [address] [place], [place] [id number] [place] [address] Pavilion, [address] [place] [address] (Wo rk) Social History Tobacco Use Types [...] Sig Dispensed Refills Start Date End Date amitriptyline (ELAVIL) 25 mg Take 25 mg by mouth 0 tablet at bedtime. hydrocodone-acetaminophen Take 1 Tab by mouth 0 (LORTAB;VICODIN) 5-500 mg 2 times daily. per tablet documented as of this encounter Discharge Disposition Disposition Code Departure Means Destination Auto Discharge Home documented in this encounter Plan of Treatment Not on filedocumented as of this encounter Visit Diagnoses Not on filedocumented in this encounter Care Teams Offal Roller Relationship Specialty Start Date End Date Cesar Clayton MD PCP - General 08/04/11 02/01/12 [address] [place] [address] documented as of this encounter
--- OUTSIDE RECORDS SUMMARY | 2022-01-31 15:49 | XMS_ITS | Encounter Summary ---
:1980 Author Organization [facility] Address [address] [place] [address] Care Team Providers Name Role Phone Unavailable Primary Care Provider Unavailable Encounter Details Date Type Department Care Team Description 08/07/2021 Lab Requisition [facility] Outr Resulting Lab, Pathology & Laboratory Provider [facility] [address] [place] [address] Social History Tobacco Use Types Packs/Day Years [...] as of this encounter Plan of Treatment Not on filedocumented as of this encounter Procedures Procedure Name Priority Date/Time Associated Diagnosis Comme nts HEPATITIS C AB W Routine 08/07/2021 10:22 Results for this REFLEX TO HCV RNA EDT procedure are in BY PCR the results section. documented in this encounter Results HEPATITIS C AB W REFLEX TO HCV RNA BY PCR (08/07/2021 10:22 EDT) Pathologist Sig nature Hep C Antibody Negative Negative [facility] Specimen Blood - Venous blood (substance) Performing Organization Address City/State/ZIP Code Phon e Number [facility] [address] [place] [address] SERVICES documented in this encounter Visit Diagnoses Not on filedocumented in this encounter
--- OUTSIDE RECORDS SUMMARY | 2022-01-31 15:49 | XMS_ITS | Encounter Summary ---
:1980 Author Organization [facility] Address [address] [place] [address] Care Team Providers Name Role Phone Nisha Da Silva MD Primary Care Provider Unavailable Reason for Visit Reason Comments Neck Pain Encounter Details Date Type Department Care Team Description 02/14/2011 Office Visit [facility] - Unknown, Pr MD bud Cervical radiculopathy; [facility] [place] [address] [place] [address] Cervical disc herniation [facility] Dante Power, DO [address] [place] [address] Interventional Pain [address] [facility] [address] [place], [place] [address] Social History Tobacco Use Types Packs/Day Years [...] Sign Reading Time Taken Comments Blood Pressure 124/75 02/14/2011 1106 EDT Pulse 63 02/14/2011 1106 EDT Temperature 35.1 ??C (95.2 ??F) 02/14/2011 1023 EDT Respiratory Rate 16 02/14/2011 1023 EDT Oxygen Saturation - - Inhaled Oxygen Concentration - - Weight 76.7 kg (169 lb) 02/14/2011 1023 EDT Height 170.2 cm (5' 7) 02/14/2011 1023 EDT Body Mass Index 26.47 02/14/2011 1023 EDT documented in this encounter Patient Instructions Patient InstructionsJaimee Watkins - 02/14/2011 11:06 EDT [facility] [place] [address] Patient Instructions You have had your bilateral cervical Epidural Steroid Injection. The purpose of this procedure has been to place medication which may help relieve your pain. Steroid may be used to decrease the swelling and nerve irritation which may be causing your pain. The following information should help you over the next few days regarding what you may expect. Please take it easy for the rest of today. DO NOT drive a car for the remainder of the day. If you feel sore where the needle(s) entered for the block or develop a flare- up of pain over the next few days, please use ice on the area. You may leave the ice on for up to 20 minutes at a time. Donot use heat, as this may cause swelling. As long as your primary doctor has indicated no restrictions, you may take a mild pain medicine, such as acetaminophen (Tylenol), ibuprofen (Advil, Nuprin, Motrin IB, etc.) or aspirin, if needed. The steroid injection usually takes a few days to become effective. On average, you may notice somerelief in 3 -5 days. However, it may take up to 10 ??? 14 days to know whether the injection was helpful. If the block causes numbness/weakness, it should wear off within a few hours. If the area that the needle(s) were inserted becomes hot, red, swollen, or increasingly tender, or if you develop a fever (100.5 or greater) or chills along with these symptoms, please call our officeimmediately. If you develop increasingly severe neck/back pain, continued numbness or weakness of the arms/legs or changes in your bladder or bowel functions, please call our office at once. Instructions for follow-up If you have any questions about your block, please call Patient Education Topic: Method: Handout and Verbal Taught to: Patient Barriers: None Outcomes: independent Signature: JAIMEE WATKINS RN documented in this encounter Progress Notes Dante Power. - 02/14/2011 1111 EDT Patient Name: Jose Enrique Mcbride : 1980 Date of Service: 02/14/2011 Residential Carpenter: Dmitry Dove MD Museum Curator: Dante Power DO Procedure: Cervical Epidural Steroid Injection at C7-T1 Interval History: Mr. Mcbride presents at the request of Nisha Da Silva for evaluation and treatment of his chronic neck pain. The pain is primarily localized to the right neck and radiates to the rightarm. This pain is unchanged in character, intensity, or duration of symptoms since evaluation by . The pain has not responded to conservative measures. Allergies: Allergies Allergen Reactions ??? Nsaids Perforated ulcer as result of nsaids ROS: Patient reports neck pain and right radicular symptoms of the arm as pertinent positives. CONSTITUTIONAL: Patient does not report fevers, nausea, vomiting. NEURO/EYES: Patient does not report headaches, dizziness, or visual changes. HEME: Patient does not report any known coagulopathies. PULM/CARDIAC: Patient does not report shortness of breath or chest pain. GI/: Patient does not report bowel or bladder incontinence. Physical Exam: Vital signs: Patient Vitals in the past 24 hrs: BP Temp Temp src Pulse Resp Height Weight 02/14/11 1023 128/83 mmHg 35.1 ??C (95.2 ??F) Tympanic 66 16 170.2 cm (67) 76.658 kg (169 lb) PE: Patient is an otherwise healthy male. Patient is in NAD. Alert and oriented x3 and appropriate in conversation today. Ambulates without an assist device. Patient has normal gait. Cervical paraspinal tenderness. Skin clear dry intact at site of injection. The rest of the physical exam was deferred. Assessment: 1. Encounter Diagnoses Name Primary? Cervical radiculopathy ??? Cervical disc herniation Plan: Proceed with ELIN C7-T1 Follow up as needed for further evaluation PROCEDURE: The patient gave informed written consent to proceed with this procedure following a detailed discussion of the risks and benefits associated with cervical epidural steroid injection. The patient was then placed in the prone position, the skin over the cervical and thoracic areas was prepped with chlor hexadine, and the site was draped with sterile towels. Strict sterile technique was maintained throughout the procedure. A tilley moment was performed with full staff present to identify the patient, verify the procedure being performed, and review allergies. Fluoroscopy was used to identify the C7-T1 disc space. The skin and subcutaneous tissue over this level was anesthetized by injection of 2% lidocaine. An 18 guage touhy needle was inserted under fluoroscopic guidance by coaxial technique and advanced towards the interspace. Loss of resistance with normal saline was used to find the epidural space. One pass was required and there was no paresthesia. Contrast dye was injected under live fluoroscopy demonstrating a typical epidural pattern with no evidence of intravascular or intrathecal injection. After negative aspiration, 80 mg Depo-Medrol and 2 mlNormal Saline were injected. The needle was then flushed and withdrawn. The patient tolerated the procedure well, there were no apparent complications, and he was discharged in stable condition. Written and verbal discharge instructions were reviewed with the patient prior to discharge. Attending attestation: I saw and examined the patient with the resident/fellow. I agree with the findings and plan of care documented in the resident's/fellow's note. In addition, I was present and participated during the entire procedure. Dmitry Dove MD Wanda Santiago - 02/14/2011 1027 EDT [facility] Rooming Note Does patient have a International Relations Professor? yes Is patient NPO? (Solids since midnight & liquids for 4 hrs) na Blood Thinners: Is patient on Blood Thinners? no If yes, taking? If stopped, who authorized stopping? Related comments: Infections: Any recent infections, fever of illnesses? no If on antibiotics, is it 7-10 days past the date of completion of antibiotics? no : (for females of child-bearing age) Is there a chance current ? na Other: documented in this encounter Miscellaneous Notes Scanned Note-Null - Auto Leasing Manager, Scan - 04/10/2011 0954 EST documented in this encounter Plan of Treatment Not on filedocumented as of this encounter Visit Diagnoses Diagnosis Cervical radiculopathy Brachial neuritis or radiculitis nos Cervical disc herniation Displacement of cervical intervertebral disc without myelopathy documented in this encounter Discontinued Medications Medication Sig Discontinue Reason Start Date End Date DICLOFENAC Take by mouth Patient Stopped Taking 08/02/2010 10/0 11/2010 SODIUM/MISOPROSTOL daily. (ARTHROTEC 75 ORAL) documented as of this encounter Historical Medications This list may reflect changes made after this encounter. Medication Sig Dispensed Refills Start Date End Date cyclobenzaprine (FLEXERIL) 5 Take 5 mg by 0 02/1408/05/2011 mg tablet mouth daily. acyclovir (ZOVIRAX) 400 mg Take 400 mg by 0 02/1408/05/2011 tablet mouth 2 times daily. acetaminophen (TYLENOL) 325 Take 650 mg by 0 11/201008/05/2011 mg tablet mouth 3 times daily. added in this encounter Care Teams Photographic Press Screwmaker Relationship Specialty Start Date End Date Nisha Da Silva MD PCP - General 07/17/10 08/03/[address] [facility] [address] [place] [address] documented as of this encounter
--- OUTSIDE RECORDS SUMMARY | 2022-01-31 15:49 | XMS_ITS | Encounter Summary ---
:1980 Author Organization [facility] Address [address] [place] [address] Care Team Providers Name Role Phone Nisha Da Silva MD Primary Care Provider Unavailable Encounter Details Date Type Department Care Team Description 09/24/2010 Hospital Encounter [facility] - Mauricio Gaviria [facility] [address] [facility] [address] [place], [place] [phone] [place] [address] Pavilion, [address] [place] [address] (Wo rk) Social History Tobacco [...] mouth 0 08/05/2011 tablet 3 times daily. citalopram (CELEXA) 40 mg Take 60 mg by mouth 0 08/05/2011 tablet daily. DICLOFENAC Take by mouth daily. 0 08/02/2010 10/0 11/2010 SODIUM/MISOPROSTOL (ARTHROTEC 75 ORAL) gabapentin (NEURONTIN) Take 800 mg by mouth 0 08/05/2011 800 mg tablet 2 times daily. documented as of this encounter Discharge Disposition Disposition Code Departure Means Destination Auto Discharge Home documented in this encounter Plan of Treatment Not on filedocumented as of this encounter Visit Diagnoses Not on filedocumented in this encounter Orders Medications Ordered That Might Not Have Count Last Ord ered Date First Ordered Date Been Administered DIAZepam (VALIUM) tablet 5 mg 1 09/24/2010 documented in this encounter Care Teams Aprn Relationship Specialty Start Date End Date Nisha Da Silva MD PCP - General 07/17/10 08/03/[address] [facility] [address] [place] [id number] documented as of this encounter
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
--- OUTSIDE RECORDS SUMMARY | 2022-01-31 15:49 | XMS_ITS | Encounter Summary ---
:1980 Author Organization [facility] Address [address] [place] [address] Care Team Providers Name Role Phone Cesar Clayton MD Primary Care Provider Unavailable Reason for Visit Reason Comments Neck Pain R arm pain. S/P injection of no benefit Encounter Details Date Type Department Care Team Description 08/05/2011 Office Visit [facility] Mauricio Gaviria De generation of Neurosurgery - Main cervical disc without [place] [address] [place] myelopathy (Primary [address]) [place], [place] [id number] [place] [address] Pavilion, Level 5 [place] [phone] (Wo rk) Social History Tobacco Use Types [...] Sign Reading Time Taken Comments Blood Pressure 128/84 08/05/2011 1129 EDT Pulse 80 08/05/2011 1129 EDT Temperature - - Respiratory Rate 20 08/05/2011 1129 EDT Oxygen Saturation - - Inhaled Oxygen Concentration - - Weight - - Height - - Body Mass Index - - documented in this encounter Progress Notes Mauricio Gaviria MD - 08/06/2011 1101 EDT DIVISION OF NEUROSURGERY PROGRESS/FOLLOWUP NOTE - 08/05/2011 Cesar Clayton MD [address] [phone] Clayton: I had the opportunity of seeing your patient, Jose Enrique Mcbride, back in my neurosurgery office on 08/05/2011. He was seen previously at this facility about a year ago with the complaint of neck pain and right arm pain. At that time, it was decided that he be treated conservatively. It was thought that he did have a right-sided C6-7 disk herniation causing weakness of his right arm. He returns today with continued pain in the right arm and in his neck. He also has numbness and weakness of his right arm. The neck pain increases with neck extension. On examination, he does have weakness of his right triceps and numbness of his 3rd and 4th fingers. Neck movement is painful. His triceps reflex is normal bilaterally. His MRI scan from 09/2010 does show a small central to right-sided disk herniation at C6-7. This male, who at the moment is [facility], does have symptoms of aC7 radiculopathy. I have recommended again neck x-rays today as well as repeat MRI scan. I will see him back at [facility] once these are performed. It is possible that he may benefit from surgery. Yours sincerely, Electronically Signed by Mauricio Gaviria MD 08/10/2011 11:58 Mauricio Gaviria MD - Mauricio Gaviria MD - Job ID: SM Doc ID: [id number] Ext Doc ID: [id number] cc: Cesar Clayton MD [facility], [address] [place] [id number]* Mauricio Saavedra MD - 08/05/2011 1211 EDT This office note has been dictated. documented in this encounter Plan of Treatment Not on filedocumented as of this encounter Procedures Procedure Name Priority Date/Time Associated Diagnosis Comme nts MR CERVICAL SPINE 09/23/2011 12:04 Result s for this WO CONTRAST EDT procedure are i n the results section. CERVICAL SPINE Routine 08/05/2011 12:45 Degeneration of Result s for this W/FLEX-EXT VIEW EDT cervical disc without pro cedure are in myelopathy the results section. documented in this encounter Results MR CERVICAL SPINE WO CONTRAST (09/23/2011 12:04 EDT) Anatomical Region Laterality Modality Other Specimen Narrative [facility] - 09/23/2011 13:49 EDT MRI CERVICAL SPINE WITHOUT CONTRAST September 23, 2011 Indication: C7 radiculopathy. Comparison: Plain films August 05, 2011 and MRI September 082010. Technique: Sagittal T1 and T2, axial T2 and sagitta l oblique T2 weighted MR images of the cervical spine are obtaine d. Findings: There is partial opacification of the ma xillary sinuses noted. A small mucosal retention cyst is noted in the nasopharynx. Craniocervical and atlantoaxial alignmen t are anatomic. No mohamud or retrolisthesis is noted. Vertebral body heights are preserved. Marrow signal intensity is unremarkable. There is disc space narrowing at C4-C5, C5-C6 and C6-C7 consistent with d isc degeneration. C2-C3: There is mild bilateral neurofora mohsen narrowing due to uncinate during. C3-C4: No disc herniation or spinal sten osis is noted. C4-C5: Posterior disc-osteophyte complex produces mild central spinal narrowing without cord impingement. Ther e is mild left neuroforaminal narrowing due to uncinate spurring. C5-C6: Posterior disc osteophyte complex produces mild central spinal narrowing without cord impingement. Ther e is mild right and moderate left neuroforaminal narrowing due to unc inate spurring. C6-C7: Posterior disc osteophyte complex produces mild central spinal narrowing without cord impingement. Ther e is more focal right foraminal disc herniation which contribu kenna to moderate neural foramina stenosis on the right. There is also moderate neuroforaminal stenosis on the left due to uncinate spu rring. C7-T1: There is mild bilateral neurofora mohsen narrowing due to uncinate spurring. The cervical cord is normal in caliber a nd signal. Impression: 1. Cervical spondylosis most significant at C4-C5, C5-C6 and C6-C7. 2. Central spinal narrowing due to poste rior disc osteophyte complexes at C4-C5, C5-C6 and C6-C7. The re is no associated cord impingement appreciated. 3. Neuroforaminal narrowing on the left at C4-C5, C5-C6, C6-C7 and C7-T1. This is due predominantly to unci aaron spurring. 4. Right foraminal disc herniation at C6 -C7, which contributes to neural foraminal stenosis at this level. Procedure Note 09/23/2011 MRI CERVICAL SPINE WITHOUT CONTRAST September 23, 2011 Indication: C7 radiculopathy. Comparison: Plain films August 05, 2011 and MRI September 082010. Technique: Sagittal T1 and T2, axial T2 and sagitta l oblique T2 weighted MR images of the cervical spine are obtaine d. Findings: There is partial opacification of the ma xillary sinuses noted. A small mucosal retention cyst is noted in the nasopharynx. Craniocervical and atlantoaxial alignmen t are anatomic. No mohamud or retrolisthesis is noted. Vertebral body heights are preserved. Marrow signal intensity is unremarkable. There is disc space narrowing at C4-C5, C5-C6 and C6-C7 consistent with d isc degeneration. C2-C3: There is mild bilateral neurofora mohsen narrowing due to uncinate during. C3-C4: No disc herniation or spinal sten osis is noted. C4-C5: Posterior disc-osteophyte complex produces mild central spinal narrowing without cord impingement. Ther e is mild left neuroforaminal narrowing due to uncinate spurring. C5-C6: Posterior disc osteophyte complex produces mild central spinal narrowing without cord impingement. Ther e is mild right and moderate left neuroforaminal narrowing due to unc inate spurring. C6-C7: Posterior disc osteophyte complex produces mild central spinal narrowing without cord impingement. Ther e is more focal right foraminal disc herniation which contribu kenna to moderate neural foramina stenosis on the right. There is also moderate neuroforaminal stenosis on the left due to uncinate spu rring. C7-T1: There is mild bilateral neurofora mohsen narrowing due to uncinate spurring. The cervical cord is normal in caliber a nd signal. Impression: 1. Cervical spondylosis most significant at C4-C5, C5-C6 and C6-C7. 2. Central spinal narrowing due to poste rior disc osteophyte complexes at C4-C5, C5-C6 and C6-C7. The re is no associated cord impingement appreciated. 3. Neuroforaminal narrowing on the left at C4-C5, C5-C6, C6-C7 and C7-T1. This is due predominantly to unci aaron spurring. 4. Right foraminal disc herniation at C6 -C7, which contributes to neural foraminal stenosis at this level. Performing Organization Address City/State/ZIP Code Phon e Number [facility] CERVICAL SPINE W/FLEX-EXT VIEW (08/05/2011 12:45 EDT) Anatomical Region Laterality Modality Other Specimen Narrative [facility] - 08/05/2011 16:24 EDT CERVICAL SPINE W/FLEX-EXT V History/Comments: ??722.4-DEGENERATION O F CERVICAL INTERVERTEBRAL RCKA-[id number]-4-CM C7 radic Findings: ?? The disc spaces are well preserved. Agai n seen is slight depression of the superior endplate of C6. Minimal anterior osteophytes are seen at the superior endplate of C6, stable. Previously described mild narrowing of the neural foramina at C6-C 7 and C7-T1 are stable. There has been no significant interval change. Procedure Note 08/05/2011 CERVICAL SPINE W/FLEX-EXT V History/Comments: 722.4-DEGENERATION OF CERVICAL INTERVERTEBRAL HDNL-QAE-3-CM C7 radic Findings: The disc spaces are well preserved. Agai n seen is slight depression of the superior endplate of C6. Minimal anterior osteophytes are seen at the superior endplate of C6, stable. Previously described mild narrowing of the neural foramina at C6-C 7 and C7-T1 are stable. There has been no significant interval change. Performing Organization Address City/State/ZIP Code Phon e Number [facility] documented in this encounter Visit Diagnoses Diagnosis Degeneration of cervical disc without my elopathy - Primary Degeneration of cervical intervertebral disc documented in this encounter Discontinued Medications Medication Sig Discontinue Reason Start Date End Date acetaminophen (TYLENOL) 325 Take 650 mg by 02/14/2011 08/05/2011 mg tablet mouth 3 times daily. busPIRone (BUSPAR) 10 mg Take 10 mg by tablet mouth 3 times daily. acyclovir (ZOVIRAX) 400 mg Take 400 mg by 02/14/2011 08/05/2011 tablet mouth 2 times daily. citalopram (CELEXA) 40 mg Take 60 mg by 0 08/05/2011 tablet mouth daily. cyclobenzaprine (FLEXERIL) Take 5 mg by 02/14/2011 0 08/05/2011 5 mg tablet mouth daily. gabapentin (NEURONTIN) 800 Take 800 mg by 08/02/2010 08/05/2011 mg tablet mouth 2 times daily. documented as of this encounter Historical Medications This list may reflect changes made after this encounter. Medication Sig Dispensed Refills Start Date End Date amitriptyline (ELAVIL) 25 mg Take 25 mg by mouth 0 tablet at bedtime. hydrocodone-acetaminophen Take 1 Tab by mouth 0 (LORTAB;VICODIN) 5-500 mg 2 times daily. per tablet added in this encounter Care Teams Watch Train Inspector Relationship Specialty Start Date End Date Cesar Clayton MD PCP - General 08/04/11 02/01/12 [address] [place] [address] documented as of this encounter
--- OUTSIDE RECORDS SUMMARY | 2022-01-31 15:49 | XMS_ITS | Encounter Summary ---
:1980 Author Organization [facility] Address [address] [place] [address] Care Team Providers Name Role Phone Nisha Da Silva MD Primary Care Provider Unavailable Cesar Clayton MD Primary Care Provider Unavailable Shiva Cruz APRN Primary Care Provider Reason for Visit Reason Onset Date Comments Referral Request 11/12/2010 Encounter Details Date Type Department Care Team Description 11/12/2010 Telephone [facility] Jie Arvizu R eferral Request Neurosurgery - [facility] [address] [facility] [address] [place], [place] [id number] [place] [address] [phone] Social History Tobacco Use Types Packs/Day Years [...] this encounter Miscellaneous Notes Telephone Encounter - Jie Arvizu - 11/12/2010 1648 EDT Its in [facility] already. 09/30/10. I will print it out and give this to you. elephone Encounter - Maegan Saleem - 11/12/2010 0926 EDT [facility] to schedule Jose Enrique's injection. Please order this and I will call her back with a date and time. Thanks, documented in this encounter Plan of Treatment Not on filedocumented as of this encounter Visit Diagnoses Not on filedocumented in this encounter Care Teams Flower Maker Relationship Specialty Start Date End Date Nisha Da Silva MD PCP - General 07/17/10 08/03/[address] [facility] [id number] [place] [address] Cesar Clayton MD PCP - General 08/04/11 02/01/12 [address] [place] [address] Shiva Cruz APRN PCP - General 02/02/12 06/25/20 [address] [place] [address] documented as of this encounter
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
--- OUTSIDE RECORDS SUMMARY | 2022-01-31 15:49 | XMS_ITS | Encounter Summary ---
:1980 Author Organization [facility] Address [address] [place] [address] Care Team Providers Name Role Phone Unavailable Primary Care Provider Unavailable Encounter Details Date Type Department Care Team Description 08/07/2021 Lab Requisition [facility] Outr Resulting Lab, Pathology & Laboratory Provider [facility] [address], [place] [id number] Social History Tobacco Use Types Packs/Day Years [...] Procedure Name Priority Date/Time Associated Comments Diagnosis HIV 1/2 ANTIGEN AND Routine 08/07/2021 10:22 Resu lts for this ANTIBODY, 4TH EDT procedure are in GENERATION the results section. documented in this encounter Results HIV 1/2 ANTIGEN AND ANTIBODY, 4TH GENERATION (08/07/2021 10:22 EDT) HIV 1 and 2 NegativeComment: If Negative [facility] Antibody/p24 acute HIV-1 LABORATORY Antigen, 4th infection is SERVICES Generation suspected in a high risk patient, submit plasma specimen for HIV-1 RNA quantitation test. Specimen Blood - Venous blood (substance) Narrative [facility] LABORATORY SERVICES - 08/08/2021 10:50 EDT Fourth Generation assay performed on the [employer] XPT. Performing Organization Address City/State/ZIP Code Phon e Number [facility] LABORATORY [address] [place] [address] SERVICES documented in this encounter Visit Diagnoses Not on filedocumented in this encounter
--- OUTSIDE RECORDS SUMMARY | 2022-01-31 15:49 | XMS_ITS | Encounter Summary ---
:1980 Author Organization [facility] Address [address] [place] [address] Care Team Providers Name Role Phone Nisha Da Silva MD Primary Care Provider Unavailable Encounter Details Date Type Department Care Team Description 08/08/2010 Results Only [facility] Jie Arvizu, Imaging Neurosurgery [facility] [address] [facility] [address] [place] [address] [place] [address] [phone] Social History Tobacco Use Types Packs/Day Years [...] as of this encounter Plan of Treatment Pending Results Name Type Priority Associated Diagnoses Date/Ti me OUTSIDE CD - MRI NEURO Imaging 08/08 1:08 EDT documented as of this encounter Visit Diagnoses Not on filedocumented in this encounter Care Teams Drapery Sewer Hand Relationship Specialty Start Date End Date Nisha Da Silva MD PCP - General 07/17/10 08/03/[address] [facility] [address] [place] [address] documented as of this encounter
--- OUTSIDE RECORDS SUMMARY | 2022-01-31 15:49 | XMS_ITS | Clinical Summary ---
:1980 Author Organization [facility] Address [address] [place] [address] Care Team Providers Name Role Phone Unavailable Primary Care Provider Unavailable Allergies Active Allergy Reactions Severity Noted Date Comments Nsaids (Non-Steroidal 08/02/2010 Perfor ated ulcer as result of Anti-Inflammatory Drug) nsai ds Medications Medication Sig Dispensed Refills Start Date End Date Status hydrocodone-acetaminophe Take 1 Tab by 0 Active n (LORTAB;VICODIN) 5-500 mouth 2 times mg per tablet daily. amitriptyline (ELAVIL) Take 25 mg by 0 Active 25 mg tablet mouth at bedtime. Active Problems Problem Noted Date Degeneration of cervical disc without myelopathy 08/19 Surgical History Surgery Date Site/Laterality Comments LUMBAR DISC SURGERY 2004 L4-5 at [facility] Medical History Medical History Date Comments Depression with anxiety Lumbar disc herniation with radiculopathy Rotator cuff tear Family History Medical History Relation Name Comments Cancer Maternal Grandmother leukemia Cancer Paternal Grandfather prostate Relation Name Status Comments Maternal Grandmother Paternal Grandfather Social History Tobacco Use Types Packs/Day Years [...] EDT Pulse 80 09/23/2011 1238 EDT Temperature 35.1 ??C (95.2 ??F) 02/14/2011 1023 EDT Respiratory Rate 20 09/23/2011 1238 EDT Oxygen Saturation - - Inhaled Oxygen Concentration - - Weight 76.7 kg (169 lb) 02/14/2011 1023 EDT Height 170.2 cm (5' 7) 02/14/2011 1023 EDT Body Mass Index 26.47 02/14/2011 1023 EDT Plan of Treatment Health Maintenance Due Date Last Done Comments Social Determinants Of Health (SDOH) 1980 COVID-19 Vaccine (1) 1985 Behavioral Health Screen 1992 Advance Directive 1998 Preventive Care Visit 1998 Pertussis (Adult) Immunization 1999 Tetanus (Adult) Immunization 1999 Influenza Immunization (Adult) (#1) 2021 HIV Screening Completed 08/07/2021 Hepatitis C Screen Completed 08/07/2021
--- OUTSIDE RECORDS SUMMARY | 2022-01-31 15:49 | XMS_ITS | Encounter Summary ---
:1980 Author Organization [facility] Address [address] [place] [address] Care Team Providers Name Role Phone Unavailable Primary Care Provider Unavailable Encounter Details Date Type Department Care Team Description 07/21/2020 Lab Requisition [facility] Outr Resulting Lab, Pathology & Laboratory Provider [facility] [address] [place] [id number] Social History Tobacco Use Types Packs/Day Years [...] Name Priority Date/Time Associated Diagnosis Comme nts ACUTE HEPATITIS Routine 07/20/2020 13:28 Results for this PROFILE EST procedure are i n the results section. documented in this encounter Results ACUTE HEPATITIS PROFILE (07/20/2020 13:28 EST) Hep B Surface Ag Negative Negative [facility] SERVICES Hep C Antibody Negative Negative [facility] SERVICES Hepatitis A NegativeComment: The Negative [facility] Antibody, IgM results of this LABORATORY assay can be falsely SERVICES lowered due to the consumption of Biotin. Hepatitis B Core Negative Negative [facility] Ab, Total LABORATORY SERVICES Specimen Blood - Venous blood (substance) Performing Organization Address City/State/ZIP Code Phon e Number [facility] [address] [place] [address] SERVICES documented in this encounter Visit Diagnoses Not on filedocumented in this encounter
--- OUTSIDE RECORDS SUMMARY | 2022-01-31 15:49 | XMS_ITS | Encounter Summary ---
:1980 Author Organization [facility] Address [address] [place] [address] Care Team Providers Name Role Phone Jonah Da Silva MD Primary Care Provider Unavailable Reason for Visit Reason Comments Neck Pain R arm pain Encounter Details Date Type Department Care Team Description 08/02/2010 Office Visit [facility] Jei Arvizu nerative cervical Neurosurgery - MAKENZIE Thao disc (Primary Dx) [address] [id number] [phone] Social History Tobacco Use Types Packs/Day Years [...] Sign Reading Time Taken Comments Blood Pressure 122/84 08/02/2010 1000 EDT Pulse 70 08/02/2010 1000 EDT Temperature - - Respiratory Rate 18 08/02/2010 1000 EDT Oxygen Saturation - - Inhaled Oxygen Concentration - - Weight 72.6 kg (160 lb) 08/02/2010 1000 EDT Height 170.2 cm (5' 7) 08/02/2010 1000 EDT Body Mass Index 25.06 08/02/2010 1000 EDT documented in this encounter Ordered Prescriptions Prescription Sig Dispensed Refills Start Date End Date DIAZepam (VALIUM) 5 mg Take 1 Tab by mouth 1 Tab 0 07/1009/24/2010 tablet every 6 hours as needed for Anxiety (30 minutes prior to exam for muscle spasm and reduce movement). documented in this encounter Progress Notes Inpatient, MD Daphne - 09/06/2010 1642 EDT Jie ArvizuMartha - 08/02/2010 1041 EDT Jose Enrique Mcbride is being seen as a consultation from Dr. Da Silva. Chief Complaint Patient presents with ??? Neck Pain R arm pain The encounter diagnosis was Degenerative cervical disc. HPI Jose Enrique Mcbride is a 30 y.o. He who presents today for Neurosurgical Consultation and was referredhere by Jonah Da Silva. The patient's PCP is JONAH DA SILVA MD. Jose Enrique Mcbride is complaining primarily of neck pain and right arm pain but the neck pain is worse. His neck pain is constant and worse with extension. It is tingling and sharp and he has a positive spurling's sign down the right arm. He does have some radiation down into the upper thoracic pain. He has some headache occipital but not severe. He has weakness but this has gotten better with exercising since onset. This all began in April 2010 when he was put in a head lock and he felt instead neck pain. He has numbness into his fingers index and pinkie but can vary. His arm pain travels down in a C7 distribution. He takes 800mg Neurontin BID but has been on this since his back issues. His left shoulder issues were treated conservatively and never fully resolved but has improved. Thiswas under a workman's comp claim. He has also undergone lumbar surgery with [facility] at L4-5 to treat his left radiculopathy. HPI Patient Active Problem List Diagnoses Code ??? Degeneration of cervical disc without myelopathy 722.4K Past Medical History Diagnosis Date ??? Depression with anxiety ??? Lumbar disc herniation with radiculopathy ??? Rotator cuff tear Past Surgical History Procedure Date ??? Lumbar disc surgery 2004 L4-5 at [facility] History Substance Use Topics ??? Smoking status: Former Smoker -- 1.0 packs/day for 9 years Quit date: 03/11/2010 ??? Smokeless tobacco: Never Used ??? Alcohol Use: No rarely Family History Problem Relation Age of Onset ??? Cancer Paternal Grandfather prostate ??? Cancer Maternal Grandmother leukemia Current outpatient prescriptions Medication Sig Dispense Refill ??? DICLOFENAC SODIUM/MISOPROSTOL (ARTHROTEC 75 ORAL) Take by mouth daily. ??? gabapentin (NEURONTIN) 800 mg tablet Take 800 mg by mouth 2 times daily. ??? citalopram (CELEXA) 40 mg tablet Take 60 mg by mouth daily. ??? DIAZepam (VALIUM) 5 mg tablet Take 1 Tab by mouth every 6 hours as needed for Anxiety (30 minutes prior to exam for muscle spasm and reduce movement). 1 Tab 0 Allergies Allergen Reactions ??? Nsaids Perforated ulcer as result of nsaids Review of Systems A full 10 point ROS was conducted and pertinent positives were reviewed and discussed with the patient. These are noted on the patient's intact paperwork. Records from the referring provider's office were received and reviewed. Pertinent information summarized and incorporated within the body of this note. Physical Exam Constitutional: He appears well-developed and well-nourished. BP 122/84 Pulse 70 Resp 18 Ht 170.2 cm (67) Wt 72.576 kg (160 lb) BMI 25.06 kg/m2 HENT: Head: Normocephalic and atraumatic. Neck: Normal range of motion. Cardiovascular: Normal rate. Pulmonary/Chest: Effort normal. Abdominal: He exhibits no distension. Musculoskeletal: Non antalgic gait, negative Spurling's sign. Negative Tinel's signs ulnar and carpal. Neurological: Right 4/5 deltoid and right 4/5 tricep weakness. sensation intact BUE and DTRs were absent of bilateral tricep. No kessler's. Otherwise did not test LE due to ankle shackles. Patient is a prisoner and accompanied by two guards, we had to request special permission for the arm shackles to be removed for the visit. Skin: Skin is warm and dry. Psychiatric: He has a normal mood and affect. His behavior is normal. Ortho Exam Neurologic Exam The prior workup of the patient includes: The patient underwent cervical MRI on 06/27/09 at [facility], which shows C6-7 disc herantion and this is causing right > left foraminal stenosis and some central narrowing without cord compression. There is also some biateral foramanial stenosis at C5-6. Assessment Cervical degenerative disc disease with cervical radiculopathy related to C6-7 with right radiculopathy and weakness Orders Placed This Encounter Procedure ??? Cervical spine w/flex-ext view ??? Mri spine-cervical and contents ??? Generic dme order Plan: We will need a better MRI scan to clarify the C6-7 level and foraminal stenosis. We will arrange forthis to be done here and then to see Dr. Gaviria immediately after the scan to have a pre op visit. He is an excellent candidate for C6-7 surgery. I am very concerned with his right tricep weakness andwe will advocate for this scan to be repeated as soon as possible. Dr. Gaviria was immediately available for supervision today. Thank you for allowing us to participate in the care of your patient. Cc: JONAH DA SILVA MD [address] [place] [address] Berkleycurt Alvarado, documented in this encounter Plan of Treatment Not on filedocumented as of this encounter Procedures Procedure Name Priority Date/Time Associated Diagnosis Comme nts MR CERVICAL SPINE 09/24/2010 12:49 Result s for this WO CONTRAST EDT procedure are i n the results section. CERVICAL SPINE Routine 08/02/2010 11:44 Degenerative cervical Results for this W/FLEX-EXT VIEW EDT disc procedure ar e in the results section. documented in this encounter Results MR CERVICAL SPINE WO CONTRAST (09/24/2010 12:49 EDT) Anatomical Region Laterality Modality Other Specimen Narrative [facility] - 09/24/2010 13:49 EDT MRI CERVICAL SPINE WITHOUT CONTRAST September 24, 2010 Indication: Neck pain and right C7 radiculopathy. Comparison: Plain films August 02, 2010 and MRI from [facility] on June 27, 2010. Technique: Sagittal T1 and T2, axial T2 and sagitta l oblique T2 weighted MR images of the cervical spine were obtain ed. Findings: Craniocervical and atlantoaxial alignmen t are anatomic. No mohamud or retrolisthesis is identified. Vertebral body heights are well-maintained. Marrow signal is unrema rkable. There is disc space narrowing and marginal osteophyte format ion at C5-C6. C2-C3: There is moderate bilateral neuro foraminal narrowing due to uncinate spurring. C3-C4: There is mild neuroforaminal narr owing bilaterally due to uncinate spurring. C4-C5: Posterior disc osteophyte complex produces mild central spinal narrowing without cord impingement. Ther e is mild bilateral neuroforaminal narrowing due to uncinate spurring. C5-C6: Posterior disc osteophyte complex produces minimal central spinal narrowing with no cord impingemen t. There is moderate bilateral neuroforaminal narrowing due t o uncinate spurring. C6-C7: There is a broad-based central an d slightly right-sided disc herniation present with central spinal n arrowing, but no cord deformity. There is moderate right neuro foraminal stenosis due to disc/uncinate spur complex and moderate left neuroforaminal narrowing due to uncinate spurring. C7-T1: There is mild bilateral neurofora mohsen narrowing from uncinate spurring. The cervical cord is normal in caliber a nd signal. Impression: 1. No significant change compared with p rior MRI from June 2010. 2. Cervical spondylosis most significant at C5-C6. 3. Multilevel neuroforaminal narrowing m ost significant on the right and the left at C5-C6. 4. Central and right-sided disc herniati on at C6-C7. 5. Mild central spinal narrowing at C4-C 5, C5-C6 and C6-C7 without cord impingement. Procedure Note 09/24/2010 MRI CERVICAL SPINE WITHOUT CONTRAST September 24, 2010 Indication: Neck pain and right C7 radiculopathy. Comparison: Plain films August 02, 2010 and MRI from [facility] on June 27, 2010. Technique: Sagittal T1 and T2, axial T2 and sagitta l oblique T2 weighted MR images of the cervical spine were obtain ed. Findings: Craniocervical and atlantoaxial alignmen t are anatomic. No mohaumd or retrolisthesis is identified. Vertebral body heights are well-maintained. Marrow signal is unrema rkable. There is disc space narrowing and marginal osteophyte format ion at C5-C6. C2-C3: There is moderate bilateral neuro foraminal narrowing due to uncinate spurring. C3-C4: There is mild neuroforaminal narr owing bilaterally due to uncinate spurring. C4-C5: Posterior disc osteophyte complex produces mild central spinal narrowing without cord impingement. Ther e is mild bilateral neuroforaminal narrowing due to uncinate spurring. C5-C6: Posterior disc osteophyte complex produces minimal central spinal narrowing with no cord impingemen t. There is moderate bilateral neuroforaminal narrowing due t o uncinate spurring. C6-C7: There is a broad-based central an d slightly right-sided disc herniation present with central spinal n arrowing, but no cord deformity. There is moderate right neuro foraminal stenosis due to disc/uncinate spur complex and moderate left neuroforaminal narrowing due to uncinate spurring. C7-T1: There is mild bilateral neurofora mohsen narrowing from uncinate spurring. The cervical cord is normal in caliber a nd signal. Impression: 1. No significant change compared with p rior MRI from June 2010. 2. Cervical spondylosis most significant at C5-C6. 3. Multilevel neuroforaminal narrowing m ost significant on the right and the left at C5-C6. 4. Central and right-sided disc herniati on at C6-C7. 5. Mild central spinal narrowing at C4-C 5, C5-C6 and C6-C7 without cord impingement. Performing Organization Address City/State/ZIP Code Phon e Number [facility] CERVICAL SPINE W/FLEX-EXT VIEW (08/02/2010 11:44 EDT) Anatomical Region Laterality Modality Other Specimen Narrative [facility] - 08/02/2010 17:16 EDT CERVICAL SPINE SERIES August 02, 2010 Indication: Neck pain and right arm pain consistent with C7 radiculopathy. Comparison: None available. Technique: Open-mouth odontoid, AP, lateral flexion , neutral and extension (including swimmer's) and right and left anterior oblique views of the cervical spine were obtained. Findings: Craniocervical and atlantoaxial alignmen t are anatomic. No mohamud or retrolisthesis is identified in flexion, neutral or extension views. There is slight depression of the superi or endplate of C6, which may be degenerative or posttraumatic. Small anterior osteophyte is present. There is mild neuroforaminal na rrowing at C6-C7 and C7-T1 bilaterally due to uncinate spurring. Procedure Note 08/02/2010 CERVICAL SPINE SERIES August 02, 2010 Indication: Neck pain and right arm pain consistent with C7 radiculopathy. Comparison: None available. Technique: Open-mouth odontoid, AP, lateral flexion , neutral and extension (including swimmer's) and right and left anterior oblique views of the cervical spine were obtained. Findings: Craniocervical and atlantoaxial alignmen t are anatomic. No mohamud or retrolisthesis is identified in flexion, neutral or extension views. There is slight depression of the superi or endplate of C6, which may be degenerative or posttraumatic. Small anterior osteophyte is present. There is mild neuroforaminal na rrowing at C6-C7 and C7-T1 bilaterally due to uncinate spurring. Performing Organization Address City/State/ZIP Code Phon e Number [facility] documented in this encounter Visit Diagnoses Diagnosis Degenerative cervical disc - Primary Degeneration of cervical intervertebral disc documented in this encounter Historical Medications This list may reflect changes made after this encounter. Medication Sig Dispensed Refills Start Date End Date citalopram (CELEXA) 40 mg Take 60 mg by mouth 0 08/05/2011 tablet daily. gabapentin (NEURONTIN) Take 800 mg by mouth 0 08/05/2011 800 mg tablet 2 times daily. DICLOFENAC Take by mouth daily. 0 08/02/2010 10/0 11/2010 SODIUM/MISOPROSTOL (ARTHROTEC 75 ORAL) added in this encounter Orders Equipment Count Last Ordered Date First Ordered Date GENERIC DME ORDER 1 08/02/2010 documented in this encounter Care Teams Sales Exhibitor Relationship Specialty Start Date End Date Jonah Da Silva MD PCP - General 07/17/10 08/03/[address] [facility] [address] [place] [address] documented as of this encounter
[2022-02-03 11:58] LABS: COVID-19 RT-PCR UVMMC Result Negative (Negative)
== END 2022-01-31 15:44 | disposition home or self-care (01) ==
LOC: NCHCN 15:43
PROVIDERS: PCP Family Medicine; Visit Provider Family Medicine
DX: Z20.822 Contact with and (suspected) exposure to COVID-19 (principal); J06.9 Acute upper respiratory infection, unspecified
CPT/HCPCS: U0003

== ENCOUNTER 2022-02-26 14:42 | Outpatient (CLI) | payer MEDICAID, SELFPAY ==
--- NOTE | 2022-02-26 14:15 | DI.RAD_ITS ---
Exam(s) XR SHOULDER RT COMPLETE 2+V EXAM: XR SHOULDER RT COMPLETE 2+V CLINICAL HISTORY: right shoulder pain. TECHNIQUE: 2D digital imaging was performed. COMPARISON: No exams were available for comparison FINDINGS: Two views: No evidence of fracture nor dislocation glenohumeral joint nor joint space narrowing. No calcificati ons noted in the subacromial space. There are degenerative changes in the AC joint with degenerative subarticular cysts seen on both side s the joint space. There is no obvious widening of the AC joint. IMPRESSION: Cystic degenerative change in the AC joint. Glenohumeral joint appears unremarkable. DATA REPOSITORY: RADIATION DOSE DELIVERED:
== END 2022-02-26 14:43 | disposition home or self-care (01) ==
LOC: DIORS 14:42
PROVIDERS: PCP Family Medicine; Referring Provider Family Medicine; Visit Provider Student in an Organized Health Care Education/Training Program
DX: M19.011 Primary osteoarthritis, right shoulder (principal)
CPT/HCPCS: 73030

== ENCOUNTER 2022-06-13 18:02 | Outpatient (REF) | payer MEDICAID, SELFPAY ==
[2022-06-13 19:50] LABS: Hemoglobin A1C 5.4 % (<5.7)
[2022-06-13 20:03] LABS: TSH (W/Ref FT4) 0.97 uIU/mL (0.36-3.74)
== END 2022-06-13 18:03 | disposition home or self-care (01) ==
LOC: NCHCN 18:02
PROVIDERS: PCP Family Medicine; Visit Provider Family Medicine
DX: R53.83 Other fatigue (principal); Z00.00 Encounter for general adult medical examination without abnormal findings
CPT/HCPCS: 83036; 84443

== ENCOUNTER 2022-08-27 11:08 | Outpatient (CLI) | payer MEDICAID, SELFPAY ==
--- NOTE | 2022-08-27 09:55 | DI.RAD_ITS ---
Exam(s) XR SHOULDER LT COMPLETE 2+V EXAM: XR SHOULDER LT COMPLETE 2+V CLINICAL HISTORY: left shoulder pain. TECHNIQUE: 2D digital imaging was performed of the left shoulder. Two images were obtained. AP and axillary views were obtained. COMPARISON: CR CHEST 2 VIEWS PA,LAT from 02/14/2015 FINDINGS: BONES: No acute fracture is present. No bony destructive lesion is seen. JOINTS: No dislocation present. SOFT TISSUE: Normal. IMPRESSION: Unremarkable radiographs of the left shoulder. DATA REPOSITORY: RADIATION DOSE DELIVERED:
== END 2022-08-27 11:09 | disposition home or self-care (01) ==
LOC: DIORS 11:09
PROVIDERS: PCP Family Medicine; Referring Provider Family Medicine; Visit Provider Student in an Organized Health Care Education/Training Program
DX: M25.512 Pain in left shoulder (principal)
CPT/HCPCS: 73030

== ENCOUNTER 2022-09-18 01:14 | Outpatient (CLI) | payer MEDICAID, SELFPAY ==
--- NOTE | 2022-09-18 13:35 | DI.MRI_ITS ---
Exam(s) MR UPPER JOINT RT WO EXAM: MR UPPER JOINT RT WO CLINICAL HISTORY: R SHOULDER PAIN,TENDONITIS,ARTHRITIS,,M75.21,M19.011 TECHNIQUE: Multiplanar multisequence MRI of the shoulder was performed. COMPARISON: CR XR SHOULDER RT COMPLETE 2+V from 02/26/2022 CR XR SHOULDER LT COMPLETE 2+V from 08/27/2022 FINDINGS: MARROW:There is no evidence of fracture, Hill-Sachs deformity, nor ominous osseous lesions. ROTATOR CUFF MECHANISM: AC JOINT/ACROMIUM: There is significant degenerative changes the AC joint including bone edema and de generative subarticular cysts on both sides joint as well as hypertrophied undersurface tissue. Mild impingement at this level.. There is no evidence of os acromiale. Supraspinatus: There is a small focus of signal abnormality in the foot pad insertion aspect tendon a t the level the greater tuberosity but no significant tear at this level. Infraspinatus: Intact. No evidence of tear nor muscle atrophy. Teres Minor: Intact. No evidence of tear nor muscle atrophy. Subscapularis/anterior cuff: Intact. No abnormal signal at the level of the multipennate insertional fibers. No significant tear nor atrophy. BICEPS TENDON: Normally position in the intertubercular groove. No evidence of tear. No tenosynovitis. LABRUM: No labral tear identified. No evidence of paralabral cyst. GLENOHUMERAL JOINT: No joint effusion nor obvious loose intra-articular bodies. No chondral defects. No osteophytes. No degenerative subarticular cysts. \ QUADRILATERAL SPACE: No evidence of mass in the region of the axillary nerve and dorsal circumflex hu meral vessels. Visualized triceps muscle at this level appears unremarkable. IMPRESSION: 1. There is signal degenerative changes in the acromioclavicular joint. 2. Small focus of signal abnormality at the foot pad insertional aspect of supraspinatus tendon consi stent with focal tendinitis signal. There is no high-grade tear of the tendon. No muscle atrophy. Other components of the rotator cuff mechanism are also intact and without evidence of muscle atrophy . 3. No evidence of biceps tendon tear nor labral tears. No significant degenerative changes in the glenohumeral joint. No joint effusion. No loose intra-ar ticular bodies. DATA REPOSITORY:
== END 2022-09-18 01:34 ==
LOC: DI 01:15
PROVIDERS: PCP Family Medicine; Visit Provider Student in an Organized Health Care Education/Training Program
DX: M75.21 Bicipital tendinitis, right shoulder (principal); M19.011 Primary osteoarthritis, right shoulder
CPT/HCPCS: 73221

== ENCOUNTER 2022-12-29 13:50 | Outpatient (REF) | payer MEDICAID, SELFPAY ==
[2022-12-29 15:23] LABS: ALT 32 U/L (16-63); AST 27 U/L (15-37); Albumin 4.2 g/dL (3.4-5.0); Alkaline Phosphatase 93 U/L (46-116); BUN 17 mg/dL (7-18); Bilirubin, Total 0.3 mg/dL (0.2-1.0); CREATININE 0.9 mg/dL (0.70-1.30); Calcium 9.3 mg/dL (8.5-10.1); Chloride 99 mmol/L (98-107); Estimated GFR 109.36 (mL/min/1.73m2); Glucose 84 mg/dL (74-106); Potassium 4.3 mmol/L (3.5-5.1); Sodium 137 mmol/L (136-145); Total Protein 8.2 g/dL (6.4-8.2)
== END 2022-12-29 13:51 | disposition home or self-care (01) ==
LOC: NCHCN 13:50
PROVIDERS: PCP Family Medicine; Visit Provider Family Medicine
DX: Z87.19 Personal history of other diseases of the digestive system (principal); Z87.11 Personal history of peptic ulcer disease; R53.83 Other fatigue
CPT/HCPCS: 80053

== ENCOUNTER 2023-04-03 16:31 | Outpatient (REF) | payer MEDICAID, SELFPAY ==
[2023-04-03 13:38] LABS: C-Reactive Protein 0.67 mg/dL (0.0-0.3)
[2023-04-06 09:36] LABS: Cyclic Citrullinated Peptide <2.5 U/mL (<5.0)
[2023-04-06 14:57] LABS: ANA Interpretation Negative (Negative)
== END 2023-04-03 16:32 | disposition home or self-care (01) ==
LOC: NCHCN 16:31
PROVIDERS: PCP Family Medicine; Visit Provider Family Medicine
DX: M25.511 Pain in right shoulder (principal)
CPT/HCPCS: 86200; 86038; 86140

== ENCOUNTER 2023-10-30 03:21 | Inpatient (IN) | payer MEDICAID, SELFPAY ==
[2023-10-30] VITALS (157 sets, daily range): BP systolic 95–186; BP diastolic 52–116; PULSE 54–110; RESP 10–34; TEMP 33.3–36.8; O2SAT 94–100
[2023-10-30] MEDS: PROPOFOL 500 MG/50 ML BTL 20 MG IV (03:15)
--- NOTE | 2023-10-30 03:15 | DI.RAD_ITS ---
Exam(s) XR PORTABLE CHEST AP EXAM: XR PORTABLE CHEST AP CLINICAL HISTORY: intubation placement TECHNIQUE: 2D digital imaging was performed. COMPARISON: No exams were available for comparison FINDINGS: Suboptimal pulmonary inflation. Monitoring leads overlie the chest. LUNGS: Clear. No pleural abnormality seen. HEART: Normal size. AORTA: Normal diameter. BONES: Hardware lower cervical spine. Soft tissues: Unremarkable. Endotracheal tube is been inserted which appears in good position, at the level of the clavicles. Th e nasogastric tube projects in the distal esophagus and should be advanced several centimeters into t he stomach. IMPRESSION: Satisfactory placement of ETT. NG tube in lower esophagus. DATA REPOSITORY: RADIATION DOSE DELIVERED:
--- NOTE | 2023-10-30 03:15 | RT.EKG_ITS ---
APPROVED REPORT Exam: Resting ECG Reason for Exam: unresponsive Patient Location: E HR:96 bpm ECG Measurements Heart Rate 96 AXIS AK 172 P 61 QRSd 128 QRS 66 QT 422 T 14 QTc 533 Conclusion Sinus rhythm...normal P axis, V-rate 60- 99 Probable left atrial enlargement...P >50mS, <-0.10mV V1 Nonspecific intraventricular conduction delay...QRSd >115mS, not LBBB/RBBB no ST segment or T wave abnormalities to suggest occlusive [place]
--- NOTE | 2023-10-30 03:15 | DI.CT_ITS ---
Exam(s) CT HEAD CERVICAL SPINE WO EXAM: CT HEAD CERVICAL SPINE WO CLINICAL HISTORY: found unresponsive. TECHNIQUE: Imaging Protocol: Axial computed tomography images with coronal and sagittal reformatted images were created and reviewed COMPARISON: No exams were available for comparison FINDINGS: Head CT Ventricles and Extra axial spaces: Normal in size and morphology for the patient's age. Hemorrhage: None. Cerebral parenchyma: No evidence of mass or acute infarct. Midline shift: None. Brainstem/Cerebellum: Normal. Calvarium: Normal. Visualized Paranasal sinuses/Mastoids: Mild mucosal thickening Soft tissues: Unremarkable. Cervical Spine CT Exam is limited by motion Endotracheal tube and nasogastric tube noted. BONES: Vertebral body heights are maintained. Alignment is normal. There is no evidence of acute frac ture. Anterior fusion hardware noted at C5 through C7 Prominent osteophyte projecting anteriorly at the inferior endplate of C4. SOFT TISSUES: No paraspinal hematoma. The airway appears intact. No pneumothorax is seen at the lung apices. IMPRESSION: Head CT: No acute abnormality. C-spine CT: Postsurgical and degenerative changes, no acute abnormality. RADIATION DOSE DELIVERED: 1,492.45mGy.cm Total DLP DATA REPOSITORY: All CT scans at this facility are submitted to the National Radiology Data Registry (NRDR) Dose Index Registry (DIR) with the [employer] (A[employer]). RADIATION OPTIMIZATION: All CT scans at this facility use at least one of these dose optimization te chniques: automated exposure control; mA and/or kV adjustment per patient size (includes targeted exa ms where dose is matched to clinical indication); or iterative reconstruction.
--- NOTE | 2023-10-30 03:15 | DI.CT_ITS ---
Exam(s) CT CHEST/ABD/PEL W EXAM: CT CHEST/ABD/PEL W CLINICAL HISTORY: found unresponsive. TECHNIQUE: Imaging Protocol: Axial computed tomography images with coronal and sagittal reformatted images were created and reviewed CONTRAST MATERIAL: Intravenous: Omnipaque 350 Contrast volume:100 ml Oral:/ no COMPARISON: CT CT ABDOMEN PELVIS W from 06/12/2020 FINDINGS: CHEST: Nasogastric tube tip in lower esophagus. Should be advanced into the stomach.. Tracheobronchial tree: Patent. Endotracheal tube. Pulmonary parenchyma: No consolidation or dominant measurable mass. Respiratory motion and dependent changes. Pleura: No effusion or pneumothorax. Lymph nodes: Within normal limits. Aorta: Thoracic portion non-dilated. Heart: No pericardial effusion. Bones: Limited evaluation of the ribs is to motion. Unremarkable for age. No lytic or blastic lesio ns.No acute fractures. Soft tissues: Unremarkable. ABDOMEN and PELVIS: Streak artifact related to patient arm position. Exam also limited by motion. Liver: Normal density. Improvement in previously noted hepatic steatosis. No measurable mass. Gallbladder and biliary tract: No evidence of stones or wall thickening. No biliary dilatation. Imp roved from prior Pancreas: Normal density, no abnormal calcifications or inflammatory process. Spleen: Normal. Kidneys: Normal size, contour and axis. No radiodense stones. No obstructive uropathy. No suspicious masses seen. Adrenal glands: No masses seen. Aorta: Abdominal portion non-dilated. Lymph nodes: Within normal limits. Soft tissues: Unremarkable. Bladder: Aguilera catheter decompressing bladder. Bowel: No obstruction or bowel wall thickening. : Free of stool. Peritoneal cavity: No ascites. No focal collection. No mesenteric inflammatory response. Bones: Unremarkable for age. Reproductive organs: Within normal limits. IMPRESSION: No acute abnormality in the chest, abdomen or pelvis.. Endotracheal tube in good position. Nasogastric tube projects in distal esophagus and should be advanced into the stomach. RADIATION DOSE DELIVERED: 1,342.37mGy.cm Total DLP DATA REPOSITORY: All CT scans at this facility are submitted to the National Radiology Data Registry (NRDR) Dose Index Registry (DIR) with the [employer] (ACR). RADIATION OPTIMIZATION: All CT scans at this facility use at least one of these dose optimization te chniques: automated exposure control; mA and/or kV adjustment per patient size (includes targeted exa ms where dose is matched to clinical indication); or iterative reconstruction.
--- NOTE | 2023-10-30 03:21 | W.ED.GENAD ---
Discharge Plan Disposition Patient Disposition: Admit to [facility] Condition: Critical Discharge Details Chief Complaint: OD/Poison Clinical Impression: Unresponsive, Endotracheally intubated, TCA (tricyclic antidepressant) overdose of undetermined intent Primary Care Provider: Glendy Cohen ED Provider: Carol Arredondo Home Meds and New Rx's Prescriptions: No Action methadone 10 mg/mL concentrate 115 mg PO DAILY Patient Comments: Once pt is extubated must call Methadone Clinic to verify dose and medication pregabalin 100 mg capsule 100 mg PO TID calcipotriene 0.005 % ointment 1 applic topical BID Rx Instructions: rub in gently and completely halobetasol propionate 0.05 % cream 1 applic topical DAILY budesonide-formoterol [Symbicort] 160-4.5 mcg/actuation HFA aerosol inhaler 2 puff inhalation BID valacyclovir 500 MG tablet 1,000 mg PO QDAY cyclobenzaprine 10 MG tablet 10 mg PO TID PRN PRN amitriptyline 25 mg tablet 50 mg PO HS fluoxetine 40 mg capsule 40 mg PO DAILY Patient Comments: take 1 capsule by mouth once daily albuterol sulfate [Ventolin HFA] 90 mcg/actuation HFA aerosol inhaler 2 puff inhalation Q4H PRN (Reason: shortness of breath) Patient Comments: inhale 2 puffs by mouth every 4 hours if needed lisdexamfetamine 70 mg capsule 70 mg PO QAM Patient Comments: TAKE 1 CAPSULE BY MOUTH EVERY MORNING HPI General Mode of arrival: EMS. Date/Time Provider Initiated Documentation: 10/30/23 03:26. Information obtained by: family, EMS and old records reviewed. HPI Narrative: 43yo M with hx depression, polysubstance use, presenting unresponsive and intubated via EMS. They were called as he was found unresponsive, two empty pill bottles (unsure what) at seen, also reportedly ETOH today. On there arrival he was unresponsive, posturing, and tachypneic. Given total of 8mg Narcan without improvement, RSI with 30mg Versed, 500mcg fentayl, 100mg dux, 300mg ketamine; ETT 25@ the teeth. No history able to be obtained from patient. Related Data Home Medications Medication Instructions Recorded Confirmed valacyclovir 500 mg tablet 1,000 mg PO QDAY 09/08/12 10/30/23 cyclobenzaprine 10 mg tablet 10 mg PO TID PRN PRN 08/15/14 10/30/23 budesonide-formoterol HFA 160 2 puff inhalation BID 02/04/22 10/30/23 mcg-4.5 mcg/actuation aerosol inhaler (Symbicort) calcipotriene 0.005 % topical 1 applic topical BID 02/04/22 10/30/23 ointment halobetasol propionate 0.05 % 1 applic topical DAILY 02/04/22 10/30/23 topical cream methadone 10 mg/mL oral concentrate 115 mg PO DAILY 02/04/22 09/23/22 pregabalin 100 mg capsule 100 mg PO TID 02/04/22 10/30/23 amitriptyline 25 mg tablet 50 mg PO HS 08/27/22 10/30/23 albuterol sulfate 90 mcg/actuation 2 puff inhalation Q4H PRN 10/30/23 10/30/23 aerosol inhaler (Ventolin HFA) shortness of breath fluoxetine 40 mg capsule 40 mg PO DAILY 10/30/23 10/30/23 lisdexamfetamine 70 mg capsule 70 mg PO QAM 10/30/23 10/30/23 Allergies Allergy/AdvReac Type Severity Reaction Status Date / Time clindamycin Allergy Intermediate Hives Verified 10/30/23 04:36 NSAIDS (Non-Steroidal AdvReac Intermediate perforated Verified 10/30/23 04:36 Anti-Inflamma ulcer General SOLITARIO: 2 Review of Systems Unobtainable due to endotracheal tube Exam Narrative Exam Narrative: GENERAL: Unresponsive, intubated. SKIN: Warm and well perfused. HEAD: Atraumatic, normocephalic without edema, discoloration or evidence of trauma. EYES: No scleral icterus or conjunctival injection. No proptosis or enophthalmos. EARS: Normal appearing pinnae. No hemotympanum. NOSE: No discharge, tenderness, laxity. No nasal septal hematoma. MOUTH: Moist mucus membranes NECK: Trachea midline. No discolorations or edema. CV: Regular rate and rhythm, Normal s1 and s2. No murmurs, rubs, or gallops. PV: Radial pulses 2+ bilaterally and symmetric. Dorsalis pedis pulses 2+ bilaterally and symmetric. 2+ capillary refill. No extremity edema. CHEST: Linear excoriations. No ecchymosis. Chest symmetric with respirations. No crepitus. No step offs. Lungs are clear to auscultation bilaterally. ABDOMEN: No ecchymosis. Soft, nondistended. BACK: No abrasions, skin openings, or ecchymosis. Spine without step offs. PELVIC: Pelvis stable, nontender : Normal external genitalia without blood at meatus. No ecchymosis or edema. MSK: No gross deformities, Scattered abrasions. NEURO: Pupils equal, ~4mm, minimally reactive. No nystagmus. GCS 3T. Medical Decision Making 43yo M with hx depression, polysubstance use, presenting unresponsive and intubated via EMS. Called for patient unresponsive; on their arrival he was reportedly unresponsive, posturing, and tachypneic. Blood glucose in 90's. Given total of 8mg Narcan without improvement, RSI with 30mg Versed, 500mcg fentayl, 100mg dux, 300mg ketamine; ETT 25@ the teeth. Slightly tachycardiac on arrival at 108, vital signs otherwise reassuring. On exam he has mid-dilated minimally reactive pupils, no purposeful movement, GCS 3T, overbreathing. Not consistent iwth opiate toxidrome. Will initiate broad workup including cardiac, trauma, tox. Placed in C-collar on arrival, NG tube and wheat placed. Overbreathing vent, started on propofol gtt for sedation. EKG on arrival sinus with borderline prolonged QRS at 128 and slightly prolonged QTc at 533. Bedside CXR reviewed, ETT ~4cm from bennie, no focal pneumonia or pneumothorax. Transported to CT; CT green scan independently reviewed. Head CT with no large ICH on my view, c-spine with no displaced fracture or dislocation, C/A/P grossly unremarkable wtih no free fluid. Labs reviewed as below, CBC reassuring, CMP with mild anion gap metabolic acidosis and borderline hypokalemia and hypocalcemia (replacement ordered), lactate elevated at 3.5, VBG with metabolic acidosis with respiratory compensation pH 7.43, trop negative, procal negative, coags normal. Serum tylenol/salicylate negative. UA not infected, UDS + for TCAs, benzos, methadone. Girlfriend subsequently to bedside; reports that he took two bottles of pills at 0100 this morning after an argument. One bottle contained cyclobenzaprine (unknown amount), the other amitriptyline which was last filled on 10/25 and he typically gets a 28 day supply, this morning took whatever was left in the bottle. Record review shows he takes 50mg daily, total presumed max 1400mg. Patient also takes methadone. Discussed with poison control, advised trial of bicarb (2 amps) and immediately repeat EKG to see if improves QRS duration. Propofol for sedation though to be appropriate for neuroprotection/seizure ppx as long as QTc tolerates, if necessary would cross-titrate with Versed +/- fentanyl. Patient given 2 amps of bicarb, QRS unchanged however QTc increasingly prolonged at 572. Propofol titrated down. CT reads as below, no significant acute findings. Discussed with hospitalist Dr. Brand; he requests further specific recommendations from poison control before accepting patient. Spoke with poison control and updated, they advised the following: Q2H EKG for 6 hours, then Q4 hours. -1-2 amps of bicarb for QRS >135; if this improves the QRS would repeat prn. No role for bicarb drip Q4H BMP -Replete electrolytes to normal range. Discussed with [facility] hospitalist Dr. Motta; patient accepted for ICU admission. Awaiting admission orders and transfer to the unit. Imaging Data Radiologic Study: Imaging: CT Scan Radiologist's impression: Head IMPRESSION: 1. NG tube tip in the distal esophagus as above. C spine IMPRESSION: No fracture. Chest IMPRESSION: 1. NG tube tip in the distal esophagus as above. 2. No acute intrathoracic findings. Abd/pelvis IMPRESSION: Apparent mucosal thickening of the distal colon likely reflects underdistention but colitis is not excluded. Quality:SDOH Health Related Social Needs: No Data to Display Critical Care Time Critical Care Time Critical Care Time: Yes Total Critical Care Time: 48 Attestation: Due to a high probability of clinically significant, life threatening deterioration, the patient required my highest level of preparedness to intervene emergently and I personally spent this critical care time directly and personally managing the patient. This critical care time included obtaining a history; examining the patient; pulse oximetry; ordering and review of studies; arranging urgent treatment with development of a management plan; evaluation of patient's response to treatment; frequent reassessment; and, discussions with other providers. This critical care time was performed to assess and manage the high probability of imminent, life-threatening deterioration that could result in multi-organ failure. It was exclusive of separately billable procedures PFSH All Active Problems (Updated 10/30/23 @ 07:25 by Carol Arredondo MD) TCA (tricyclic antidepressant) overdose of undetermined intent (Acute) Endotracheally intubated (Acute) Unresponsive (Acute) Tendinitis of long head of biceps brachii of left shoulder (Acute) subacromial corticosteroid injection 08/27/22 No-show for appointment (Acute) Tendonitis of long head of biceps brachii of right shoulder (Acute) subacromial corticosteroid injection 04/16/22 Arthritis of right acromioclavicular joint (Acute) MRSA carrier (Acute) Moderate recurrent major depression (Acute) ADHD (Acute) Mild persistent asthma in adult without complication (Acute) Hand dermatitis (Acute) Recurrent genital herpes (Acute) Tobacco abuse (Acute) Opioid dependence (Acute) Neck pain, chronic (Acute) Herniation of lumbar intervertebral disc with radiculopathy (Acute) Psoriasis (Chronic) Toothache (Acute) Deep venous thrombosis (Chronic) Abnormal LFTs (Acute) Common bile duct dilatation (Chronic) Constipation (Acute) Superficial thrombophlebitis (Acute) Alcohol withdrawal delirium (Acute) Discharge planning issues (Acute) DVT prophylaxis (Acute) Abdominal pain (Acute) Bronchitis (Acute) Vomiting (Acute) Acute epigastric pain (Acute) Dehydration (Acute) Medical History H/O acute pancreatitis H/O deep venous thrombosis Perforated ulcer Peptic ulcer disease Alcohol abuse quit in 2020 methadone from [facility] Surgical History (Updated 02/04/22 @ 11:53 by Nicole Muller RN, RN) History of esophagogastroduodenoscopy (EGD) H/O lumbar discectomy x2 12/24/21 C5-C7 ACDF S/P appendectomy Family History Mother Breast cancer Social History Smoking/Tobacco Use Status: Current every day Smoking risk assessment performed?: Yes Alcohol Intake: current Alcohol Intake frequency: 3 or more drinks per day Alcohol type: beer Drug use: Daily Substance use type: marijuana, heroin, painkillers and methamphetamine Current gender identity: male Do you feel safe at home: Yes Do you feel safe in your relationship?: Yes
[2023-10-30 03:27] LABS: Abs Immature Grans 0.11 10^3/uL (0.0-0.06); Absolute Basophil Count 0.03 10^3/uL (0.0-0.2); Absolute Eosinophil Count 0.01 10^3/uL (0.0-0.7); Absolute Lymphocyte Count 0.83 10^3/uL (1.2-3.4); Absolute Monocyte Count 0.42 10^3/uL (0.1-0.8); BE (Venous) -6 mmol/L (-2-3); Basophils % 0.3 %; Eosinophils % 0.1 %; HCO3 (Venous) 19 mmol/L (23-28); HCT 39.7 % (40.0-50.0); HGB 13.5 g/dL (13.5-17.5); Lymphocytes % 7.2 %; MCH 30.8 pg (27.0-33.0); MCV 90 fL (80-95); MPV 8.4 fL (8.0-11.0); Monocytes % 3.6 %; Neutrophils % 87.8 %; Platelet Count 304 10^3/uL (130-400); RBC 4.39 10^6/uL (4.36-5.78); RDW 13.5 % (11.8-14.1); RDW-SD 45.1 fL; WBC 11.57 10^3/uL (4.4-10.8); pCO2 (Venous) 28 mmHg (41-51); pH (Venous) 7.43 (7.31-7.41); pO2 (Venous) 234 mmHg
[2023-10-30 03:28] LABS: Absolute Neutrophil Count 10.16 10^3/uL (1.2-6.7)
[2023-10-30 03:29] LABS: Lactate 3.4 mmol/L (0.6-1.4)
[2023-10-30] MEDS: fentaNYL 100 MCG/2 ML VIAL (03:40)
[2023-10-30] MEDS: Normal Saline - Diluent 50 ML VIAL IJ (03:40)
[2023-10-30 03:41] LABS: PTT Activated 23.8 sec (23.6-32.8); Prothrombin Time 10.5 sec (9.1-11.1)
[2023-10-30] MEDS: Omnipaque 350 MG/ML 100 ML BTL IJ (03:41)
[2023-10-30 03:43] LABS: Acetaminophen < 2 ug/mL (10-30)
[2023-10-30] MEDS: MIDAZOLAM 50 MG in Normal Saline 90 ML IV (03:50)
[2023-10-30 03:55] LABS: ALT 28 U/L (16-63); AST 21 U/L (15-37); Albumin 4.2 g/dL (3.4-5.0); Alkaline Phosphatase 94 U/L (46-116); Anion Gap 16.4 mmol/L (3-11); BUN 13 mg/dL (7-18); Bilirubin, Total 0.55 mg/dL (0.2-1.0); CO2 20.6 mmol/L (21.0-32.0); Calcium 8.4 mg/dL (8.5-10.1); Chloride 102 mmol/L (98-107); Estimated GFR 95.77 (mL/min/1.73m2); Glucose 119 mg/dL (74-106); Potassium 3.4 mmol/L (3.5-5.1); Sodium 139 mmol/L (136-145); Troponin I < 50 ng/L (< or =60)
[2023-10-30 04:06] LABS: Procalcitonin < 0.1 ng/mL
[2023-10-30 04:06] LABS: Bilirubin Negative (Negative); Blood Negative (Negative); Clarity Clear (Clear); Glucose Negative (Negative); Ketones Negative (Negative); Leukocyte Esterase Negative (Negative); Nitrite Negative (Negative); Urobilinogen 0.2 mg/dL (Up to 0.2)
[2023-10-30 04:18] LABS: *AMPHETAMINES SCREEN URINE Negative (Negative); *BARBITURATES SCREEN URINE Negative (Negative); *BENZODIAZEPINES SCREEN URINE Positive (Negative); Cannabinoids THC Negative (Negative); Cocaine Screen,Urine Negative (Negative); METHADONE URINE SCREEN Positive (Negative); OPIATES URINE SCREEN Negative (Negative)
[2023-10-30] MEDS: Propofol 200 MG/20 ML VIAL 20 MG IVP (04:25)
[2023-10-30 04:33] LABS: Tricyclic Antidepressants Positive (Negative)
--- NOTE | 2023-10-30 04:33 | TELEP.MEDREC ---
Date of service: 10/30/23 Time of Service: 04:34 Telepharmacy Home Med Rec Allergies Allergies: clindamycin Allergy (Intermediate, Unverified 10/30/23 04:04) Hives NSAIDS (Non-Steroidal Anti-Inflamma Adverse Reaction (Intermediate, Unverified 10/30/23 04:04) perforated ulcer Interview Person Interviewed: Pt intubated and could not be interviewed Quality Quality of Interview/Accuracy of Medication List: Fair Sources Sources used to compile medication list: [facility] List, [facility] and [facility] Changes made to Home Medication List: ADDITIONS: Vyvanse, Albuterol DELETIONS: Meds marked as not taking with applicable fill dates CHANGES: Fluoxetine dose (40 mg most recently filled) Lyrica directions (TID most recently filled) Additional Notes Additional Notes: Once pt is extubated and Methadone clinic is obtained must call to verify dose and medicaiton Recommended Changes Recommended Changes(reason for recommendation): None Attestation: The home medication list is now updated to the best of my knowledge and is ready to be reconciled by the provider. Please contact the TelePharmacy Medication Reconciliation Pharmacist at for any questions.
--- NOTE | 2023-10-30 04:45 | RT.EKG_ITS ---
APPROVED REPORT Exam: Resting ECG Reason for Exam: overdose Patient Location: E HR:72 bpm ECG Measurements Heart Rate [address] 172 P 74 QRSd 129 QRS 77 QT 522 T 58 QTc 572 Conclusion Sinus rhythm... V-rate 60- 99 Nonspecific intraventricular conduction delay...QRSd >115mS, not LBBB/RBBB Prolonged QT interval...QTc >500mS No ST segment or T wave abnormalitites to suggest occlusive [place]
--- NOTE | 2023-10-30 04:50 | DI.VRAD_ITS ---
PROCEDURE INFORMATION: Exam: CT Head Without Contrast Exam date and time: 10/30/2023 4:11 AM Age: 43 years old Clinical indication: Injury or trauma; Other: Found unresponsive; Additional info: Found unresponsive. Intubation status TECHNIQUE: Imaging protocol: Computed tomography of the head without contrast. COMPARISON: CT HEAD NECK FACIAL WO 26/10/2017 00:47 FINDINGS: Brain: Normal. No hemorrhage. Unremarkable white matter. No mass effect. Cerebral ventricles: No ventriculomegaly. Paranasal sinuses: Mucoperiosteal thickening of the ethmoid sinuses bilaterally. No fluid levels. Mastoid air cells: Visualized mastoid air cells are well aerated. Bones: Unremarkable. No acute fracture. Soft tissues: Unremarkable. IMPRESSION: No acute intracranial findings. PROCEDURE INFORMATION: Exam: CT Cervical Spine Without Contrast Exam date and time: 10/30/2023 4:11 AM Age: 43 years old Clinical indication: Injury or trauma; Other: Found unresponsive; Additional info: Found unresponsive. Intubation status TECHNIQUE: Imaging protocol: Computed tomography of the cervical spine without contrast. COMPARISON: CT HEAD NECK FACIAL WO 26/10/2017 00:47 FINDINGS: Tubes, catheters and devices: Endotracheal and nasogastric tubes are present. Bones: Status post ACDF at C5-C7. Normal alignment. No acute fracture. No evidence of hardware failure. Lungs: Lung apices are normal. Soft tissues: Unremarkable. IMPRESSION: No fracture. Dictated and Authenticated by: Salinas Zapata MD. Ordering:BHUMIKA Medina MD
--- NOTE | 2023-10-30 04:56 | DI.VRAD_ITS ---
PROCEDURE INFORMATION: Exam: XR Chest Exam date and time: 10/30/2023 3:32 AM Age: 43 years old Clinical indication: Device placement; Other: Intubation placement TECHNIQUE: Imaging protocol: Radiologic exam of the chest. Views: 1 view. COMPARISON: CR XR CHEST 2V PA LATERAL 04/12/2021 15:52 FINDINGS: Tubes, catheters and devices: The endotracheal tube tip is in satisfactory position approximately 4 cm proximal to the bennie. The nasogastric tube tip is in the distal esophagus and can be advanced several centimeters. Lungs: Unremarkable. No consolidation. Pleural spaces: Unremarkable. No pleural effusion. No pneumothorax. Heart/Mediastinum: Unremarkable. No cardiomegaly. Bones/joints: Unremarkable. IMPRESSION: NG tube tip in the distal esophagus as above. Dictated and Authenticated by: Salinas Zapata MD. Ordering:BHUMIKA Medina MD
[2023-10-30] MEDS: Sodium Bicarbonate 50 MEQ/50 ML SYR 100 MEQ IVP ×2 (05:01→15:41)
--- NOTE | 2023-10-30 05:04 | DI.VRAD_ITS ---
PROCEDURE INFORMATION: Exam: CT Chest With Contrast; Diagnostic Exam date and time: 10/30/2023 4:14 AM Age: 43 years old Clinical indication: Injury or trauma; Other: Found unresponsive; Additional info: Found unresponsive. Intubation status TECHNIQUE: Imaging protocol: Diagnostic computed tomography of the chest with contrast. 3D rendering (Not supervised by radiologist): MIP and/or 3D reconstructed images were created by the technologist. Contrast material: OMNI 350; Contrast volume: 100 ml; Contrast route: INTRAVENOUS (IV); COMPARISON: CR XR PORTABLE CHEST AP 30/10/2023 03:32 FINDINGS: Tubes, catheters and devices: The nasogastric tube tip is in the distal esophagus and can be advanced several cm. The endotracheal tube tip is in normal position proximal to the bennie. Lungs: Dependent atelectatic changes bilaterally. Pleural spaces: No pleural effusion or pneumothorax. Heart: Unremarkable. No cardiomegaly. No pericardial effusion. Lymph nodes: Unremarkable. No enlarged lymph nodes. Vasculature: Unremarkable. No aortic aneurysm. Bones/joints: Evaluation for rib fractures is limited by motion artifact. No obvious fractures are identified. Soft tissues: Unremarkable. IMPRESSION: 1. NG tube tip in the distal esophagus as above. 2. No acute intrathoracic findings. PROCEDURE INFORMATION: Exam: CT Abdomen And Pelvis With Contrast Exam date and time: 10/30/2023 4:14 AM Age: 43 years old Clinical indication: Injury or trauma; Other: Found unresponsive; Additional info: Found unresponsive. Intubation status TECHNIQUE: Imaging protocol: Computed tomography of the abdomen and pelvis with contrast. 3D rendering (Not supervised by radiologist): MIP and/or 3D reconstructed images were created by the technologist. Contrast material: OMNI 350; Contrast volume: 100 ml; Contrast route: INTRAVENOUS (IV); COMPARISON: MR ABDOMEN WO 23/07/2020 11:52 FINDINGS: Liver: Normal. No mass. Gallbladder and bile ducts: Normal. No calcified stones. No ductal dilation. Pancreas: Normal. No ductal dilation. Spleen: Normal. No splenomegaly. Adrenal glands: Normal. No mass. Kidneys and ureters: Normal. No hydronephrosis. Stomach and bowel: Distended proximal colon. Apparent mucosal thickening of the distal colon which probably reflects underdistention but colitis is not excluded. Appendix: Nonvisualized appendix. No evidence of appendicitis. Intraperitoneal space: No free fluid or free air. Vasculature: Unremarkable. No abdominal aortic aneurysm. Lymph nodes: Unremarkable. No enlarged lymph nodes. Urinary bladder: Aguilera catheter. Reproductive: Unremarkable as visualized. Bones/joints: Degenerative disc disease at L4-L5. No acute fracture. Soft tissues: Unremarkable. IMPRESSION: Apparent mucosal thickening of the distal colon likely reflects underdistention but colitis is not excluded. Dictated and Authenticated by: Salinas Zapata MD. Ordering:BHUMIKA Medina MD
[2023-10-30] MEDS: fentaNYL 1,000 MCG in Normal Saline 80 ML 10 MCG IV (05:30)
[2023-10-30] MEDS: CALCIUM GLUCONATE in NaCl 1 GM/50 ML BAG IVPB (06:31)
[2023-10-30 06:40] LABS: Lactate 1.6 mmol/L (0.9-1.7); pCO2 (Venous) 43 mmHg (41-51); pH (Venous) 7.37 (7.31-7.41); pO2 (Venous) 131 mmHg
[2023-10-30 06:41] LABS: BE (Venous) 0 mmol/L (-2-3); HCO3 (Venous) 25 mmol/L (23-28); O2 Sat (Venous) 99 %; TCO2 (Venous) 26 mmol/L (24-29)
[2023-10-30] MEDS: POTASSIUM CHLORIDE 20 MEQ/100 ML BAG 50 MEQ IVINF (06:45)
[2023-10-30] MEDS: PROPOFOL 500 MG/50 ML BTL 9 MG IV (06:50)
[2023-10-30 06:55] LABS: Magnesium 1.9 mg/dL (1.8-2.4)
[2023-10-30 07:06] LABS: Troponin I < 50 ng/L (< or =60)
[2023-10-30] MEDS: MIDAZOLAM 50 MG in Normal Saline 90 ML 45.18 MG IV (07:12)
[2023-10-30] MEDS: fentaNYL 1,000 MCG in Normal Saline 80 ML 75.3 MCG IV (07:12)
--- NOTE | 2023-10-30 07:25 | HPE_ITS ---
Date of service: 10/30/23 Time of Service: 07:43 Assessment and Plan Assessment and plan (1) TCA (tricyclic antidepressant) overdose of undetermined intent: Status: Acute Assessment and plan: -Patient initially found unresponsive Mental cause -However, after presenting to the ED being worked up, patient's girlfriend reported that he was found next to empty bottle of cyclobenzaprine at midnight, and an empty bottle of amitriptyline based on what it was last filled usual supply it was at max 1400 mg -Case was discussed with poison control: -Patient was given 2 A of bicarb in the emergency department with repeat EKG to assess QRS improvement -Recommend acute 2-hour EKGs and if QRS is greater than 135 recommend 1 to 2 g of bicarbonate, given additional doses if this does not improve QRS -Patient will remain intubated and sedated at least until EKG improves, and patient becomes more awake/alert indicating that he may be able to pass spontaneous breathing trial -currently on propofol, fentanyl and versed -continue to wean propofol given risk for QT prolongation -can increase versed as needed -fentanyl decreased to 3mcg, can increase but SHOULD NOT be increased above 14mcg/hr as there is a facility shortage and we would not be able to have enough to carry the patient thought the weekend/when next shipment would be arriving (2) Endotracheally intubated: Status: Acute Assessment and plan: - As noted above (3) Long QT interval: Status: Acute Assessment and plan: - As noted above (4) Depression: Status: Chronic Assessment and plan: - Holding all home medications (5) Attempted suicide: Status: Acute Assessment and plan: - Incident reportedly occurred after a fight with his girlfriend -Patient will need psychiatric consult once he is awake and appropriate History of Present Illness History of Present Illness Chief Complaint: unresponsive Narrative: 44-year-old male with a history of depression, polysubstance abuse was brought in via EMS unresponsive and intubated. Admission related, patient was found unresponsive next to an empty pill bottles as well as in the presence of alcohol. On arrival EMS noted the patient was unresponsive, posturing and tachypneic. Was given a total of 8 mg Narcan without improvement and was intubated with 30 mg of Versed and 500 mics fentanyl-milligrams of succinylcholine, 100 mg of ketamine.. Upon arrival patient was noted to be intubated and sedated but was tachycardic with heart rate of 108 otherwise saturating well on ventilator. On physical exam he was noted as being unresponsive with dilated non-reactive pupils and a GCS of 3T as he was overbreathing the vent. Initial EKG showed a QRS of 128 and a prolonged QTc of 533. Chest x-ray showed ET tube about 4 cm above the bennie without any signs of pneumonia or pneumothorax. Head CT was then performed that did not show any acute findings. CBC was unremarkable, CMP showed mild anion gap metabolic acidosis close some mild hypokalemia, initial lactic of 3.5, and VBG showed metabolic acidosis with respiratory compensation, initial troponin troponin later were negative. Which time patient's girlfriend presented to the bedside and reported that he took 2 bottles of pills around 1 AM after an argument, 1 bottle was an unknown amount of cyclobenzaprine only other was amitriptyline that was last filled on 10/26/2023 and continue admitted 28-day supply. With 50 mg tablets this is presumed to be about 1400 mg total dose. Additionally patient takes methadone. Emergency room physician discussed case with poison control who advised admitting geriatrics with bicarb given follow-up EKG dated to retract QRS improvement. Additionally, given that patient's QTc continued to increase, propofol was being down titrated in favor of combination of Versed and fentanyl. Further recommendations from poison control recommended to every 2 hours EKG discharge 6 hours, followed by every 4 hours afterwards. If the QRS increases to about 135 they recommend 1 to 2 g of bicarb, and if this does improve the QRS they would recommend repeating it. They also stated that there is no role for bicarb drip at this time. At which time emergency room physician paged hospitalist for admission for patient with acute sedated overdose who is currently intubated. Review of Systems All systems reviewed & are unremarkable except as noted in HPI and below PFSH All Active Problems (Updated 10/30/23 @ 07:56 by Reynaldo Motta MD) Attempted suicide (Acute) Depression (Chronic) Long QT interval (Acute) TCA (tricyclic antidepressant) overdose of undetermined intent (Acute) Endotracheally intubated (Acute) Unresponsive (Acute) Tendinitis of long head of biceps brachii of left shoulder (Acute) subacromial corticosteroid injection 08/27/22 No-show for appointment (Acute) Tendonitis of long head of biceps brachii of right shoulder (Acute) subacromial corticosteroid injection 04/16/22 Arthritis of right acromioclavicular joint (Acute) MRSA carrier (Acute) Moderate recurrent major depression (Acute) ADHD (Acute) Mild persistent asthma in adult without complication (Acute) Hand dermatitis (Acute) Recurrent genital herpes (Acute) Tobacco abuse (Acute) Opioid dependence (Acute) Neck pain, chronic (Acute) Herniation of lumbar intervertebral disc with radiculopathy (Acute) Psoriasis (Chronic) Toothache (Acute) Deep venous thrombosis (Chronic) Abnormal LFTs (Acute) Common bile duct dilatation (Chronic) Constipation (Acute) Superficial thrombophlebitis (Acute) Alcohol withdrawal delirium (Acute) Discharge planning issues (Acute) DVT prophylaxis (Acute) Abdominal pain (Acute) Bronchitis (Acute) Vomiting (Acute) Acute epigastric pain (Acute) Dehydration (Acute) Medical History H/O acute pancreatitis H/O deep venous thrombosis Perforated ulcer Peptic ulcer disease Alcohol abuse quit in 2020 methadone from [facility] Surgical History (Updated 02/04/22 @ 11:53 by Nicole Muller RN, RN) History of esophagogastroduodenoscopy (EGD) H/O lumbar discectomy x2 12/24/21 C5-C7 ACDF S/P appendectomy Family History Mother Breast cancer Social History Smoking/Tobacco Use Status: Current every day Smoking risk assessment performed?: Yes Alcohol Intake: current Alcohol Intake frequency: 3 or more drinks per day Alcohol type: beer Drug use: Daily Substance use type: marijuana, heroin, painkillers and methamphetamine Current gender identity: male Do you feel safe at home: Yes Do you feel safe in your relationship?: Yes Meds Allergies and Home Medications Allergies Allergy/AdvReac Type Severity Reaction Status Date / Time clindamycin Allergy Intermediate Hives Verified 10/30/23 04:36 NSAIDS (Non-Steroidal AdvReac Intermediate perforated Verified 10/30/23 04:36 Anti-Inflamma ulcer Home Medications Medication Instructions Recorded Confirmed Type valacyclovir 500 mg tablet 1,000 mg PO QDAY 09/08/12 10/30/23 History cyclobenzaprine 10 mg tablet 10 mg PO TID PRN PRN 08/15/14 10/30/23 History budesonide-formoterol HFA 160 2 puff inhalation BID 02/04/22 10/30/23 History mcg-4.5 mcg/actuation aerosol inhaler (Symbicort) calcipotriene 0.005 % topical 1 applic topical BID 02/04/22 10/30/23 History ointment halobetasol propionate 0.05 % 1 applic topical DAILY 02/04/22 10/30/23 History topical cream methadone 10 mg/mL oral concentrate 125 mg PO DAILY 02/04/22 10/30/23 History pregabalin 100 mg capsule 100 mg PO TID 02/04/22 10/30/23 History amitriptyline 25 mg tablet 50 mg PO HS 08/27/22 10/30/23 History albuterol sulfate 90 mcg/actuation 2 puff inhalation Q4H PRN 10/30/23 10/30/23 History aerosol inhaler (Ventolin HFA) shortness of breath fluoxetine 40 mg capsule 40 mg PO DAILY 10/30/23 10/30/23 History lisdexamfetamine 70 mg capsule 70 mg PO QAM 10/30/23 10/30/23 History Exam Narrative Exam Narrative: Patient intubated and sedated, does not appear to be in any acute distress, ET tube in place about 25 cm at the teeth, NG tube currently being replaced as it was found coiled in the oropharynx, heart regular rate rhythm, lungs mechanical breath sounds without diminished or coarse sounds, abdomen soft, nontender, nondistended Results Labs 10/30/23 03:15 10/30/23 03:15 Labs: Laboratory Results - last 24 hr 10/30/23 10/30/23 10/30/23 03:15 03:56 05:30 WBC 11.57 H RBC 4.39 Hgb 13.5 Hct 39.7 L MCV 90 MCH 30.8 MCHC 34.0 RDW 13.5 Plt Count 304 MPV 8.4 Immature Gran % 1.0 Neutrophils % 87.8 Lymphocytes % 7.2 Monocytes % 3.6 Eosinophils % 0.1 Basophils % 0.3 Nucleated RBC % 0.0 Absolute Neutrophils 10.16 H Absolute Lymphocytes 0.83 L Absolute Monocytes 0.42 Absolute Eosinophils 0.01 Absolute Basophils 0.03 PT 10.5 INR 1.0 APTT 23.8 VBG pH 7.43 H VBG pCO2 28 L VBG pO2 234 VBG HCO3 19 L VBG Total CO2 Not Applicable VBG O2 Saturation Not Applicable VBG Base Excess -6 L VBG Lactate 3.4 H* Sodium 139 Potassium 3.4 L Chloride 102 Carbon Dioxide 20.6 L Anion Gap 16.4 H BUN 13 Creatinine 1.0 Est GFR (CKD-EPI 2020) 95.77 Glucose 119 H Calcium 8.4 L Magnesium Total Bilirubin 0.55 AST 21 ALT 28 Alkaline Phosphatase 94 Troponin I < 50 Cancelled Total Protein 8.0 Albumin 4.2 Procalcitonin < 0.1 Urine Color Yellow Urine Clarity Clear Urine pH 6.0 Ur Specific [place] 1.010 Urine Protein Negative Urine Ketones Negative Urine Blood Negative Urine Nitrite Negative Urine Bilirubin Negative Urine Urobilinogen 0.2 Ur Leukocyte Esterase Negative Urine Glucose Negative Salicylates 4.0 Urine Opiates Screen Negative Urine Methadone Screen Positive A Acetaminophen < 2 Ur Barbiturates Screen Negative Ur Tricyclics Screen Positive A Ur Amphetamines Screen Negative U Benzodiazepines Scrn Positive A Urine Cocaine Screen Negative Ur THC Screen Negative Ethyl Alcohol 65.0 H 10/30/23 06:25 WBC RBC Hgb Hct MCV MCH MCHC RDW Plt Count MPV Immature Gran % Neutrophils % Lymphocytes % Monocytes % Eosinophils % Basophils % Nucleated RBC % Absolute Neutrophils Absolute Lymphocytes Absolute Monocytes Absolute Eosinophils Absolute Basophils PT INR APTT VBG pH 7.37 VBG pCO2 43 VBG pO2 131 VBG HCO3 25 VBG Total CO2 26 VBG O2 Saturation 99 VBG Base Excess 0 VBG Lactate 1.6 Sodium Potassium Chloride Carbon Dioxide Anion Gap BUN Creatinine Est GFR (CKD-EPI 2020) Glucose Calcium Magnesium 1.9 Total Bilirubin AST ALT Alkaline Phosphatase Troponin I < 50 Total Protein Albumin Procalcitonin Urine Color Urine Clarity Urine pH Ur Specific [place] Urine Protein Urine Ketones Urine Blood Urine Nitrite Urine Bilirubin Urine Urobilinogen Ur Leukocyte Esterase Urine Glucose Salicylates Urine Opiates Screen Urine Methadone Screen Acetaminophen Ur Barbiturates Screen Ur Tricyclics Screen Ur Amphetamines Screen U Benzodiazepines Scrn Urine Cocaine Screen Ur THC Screen Ethyl Alcohol Last Vital Signs Temp 98.3 F 10/30/23 03:57 Pulse 59 L 10/30/23 07:11 Resp 14 10/30/23 07:11 BP 141/88 H 10/30/23 07:11 Pulse Ox 100 10/30/23 06:46 PAWSS Have you Been Recently Intoxicated or Drunk Within the Last 30 days?: Unable to Obtain Have you Ever Experienced Previous Episodes of Alcohol Withdrawal?: Unable to Obtain Have you ever Experienced Withdrawal Seizures?: Unable to Obtain Have you ever Experienced Delirium Tremens(DT)s?: Unable to Obtain Have you ever undergone Alcohol Rehabilitation Treatment (i.e, inpt ot outpatient treatment programs)?: Unable to Obtain Have you ever Experienced Blackouts?: Unable to Obtain Have you ever Combined Alcohol with other Downers within the last 90 days?: U nable to Obtain Have you ever Combined Alcohol with any other Substance of Abuse during the last 90 days?: Unable to Obtain Positive Blood Alcohol level on Presentation? [PCS.BAL]: Unable to Obtain Evidence of Increased Autonomic Activity (i.e. HR>120, tremor, sweating, agitation, nausea)?: Unable to Obtain Time Spent Time spent with Patient: >75 minutes Time was spent: preparing to see the patient(eg.review tests), obtaining and/or reviewing separately otained hiistory, ordering medications,tests, procedures, referring, communicating with other health auto care center manager, indepentently interpreting results, counseling the patient and care coordination
[2023-10-30] MEDS: fentaNYL 1,000 MCG in Normal Saline 80 ML 111 MCG IV (08:20)
--- OUTSIDE RECORDS SUMMARY | 2023-10-30 08:43 | XMS_ITS | Continuity of Care Document ---
Author Name Unknown Organization [facility] Address [address] [place] [id number] Care Team Providers Care Safety And Occupational Health Manager Name Role Phone KARISHMA TRIEVDI MD Primary Care Physician Encounter [facility] FIN NBR [id number] Date(s): 09/16/23 - 09/16/[address] [id number] [phone] Discharge Disposition: Home or Self Care Attending Physician: KARISHMA TRIVEDI MD Admitting Physician: KARISHMA TRIVEDI MD Referring Physician: KARISHMA TRIVEDI MD Allergies, Adverse Reactions, Alerts Substance Reaction Severity Status clindamycin Severe Active Medications Lyrica 0 Refill(s) Start Date: 07/16/22 Status: Ordered methadone 0 Refill(s) Start Date: 07/16/22 Status: Ordered Paxil 0 Refill(s) Start Date: 07/16/22 Status: Ordered Valtrex 0 Refill(s) Start Date: 07/16/22 Status: Ordered Vyvanse 0 Refill(s) Start Date: 07/16/22 Status: Ordered Results Radiology Reports * Exam Date Time Procedure Performing Provider Status 09/16/23 3:25 PM MRI Spine Lumbar w/o Contrast Lor Allison; Martin (Verified) Notes: (MRI Spine Lumbar w/o Contrast) Reason For Exam: INTERVERTEBRAL DISC DISORDER MRI Spine Lumbar w/o Contrast EXAM DESCRIPTION: MRI Spine Lumbar w/o Contrast 09/16/2023 INDICATION: INTERVERTEBRAL DISC DISORDER TECHNIQUE: Multiplanar MRI examination of the lumbar spine utilizing T1, fat-suppressed T2 and fast STIR technique. COMPARISON: MRI lumbar spine examination from 08/06/2016 FINDINGS: Mild retrolisthesis at L4-5. Lumbar lordosis is otherwise satisfactory. Mild levoscoliosis which may be positional. Loss of intervertebral disc stature and signal intensity at L4-5 on sagittal T2 weighted images consistent with desiccation and degeneration L5-S1: Mild broad-based central disc extrusion with bilateral facet and ligamentum flavum hypertrophy. No significant central stenosis with AP spinal canal diameter of 8.7 mm. No neural foraminal narrowing L4-5: Diffuse disc bulge with prominent superimposed broad-based left paracentral caudal disc extrusion. Significant left lateral recess stenosis with nerve root encroachment. No significant central stenosis with AP spinal canal diameter of 8.7 mm. Mild bilateral neural foraminal narrowing L3-4: Diffuse disc bulge, focally prominent in the left lateral region with mild bilateral facet hypertrophy. Relative central stenosis with AP spinal canal diameter of 5.3 mm. Bilateral lateral recess stenosis. Moderate left neural foraminal narrowing with nerve root encroachment. Mild right neural foraminal narrowing L2-3: No focal disc protrusion, significant spinal stenosis or neural foraminal narrowing. L1-2: No focal disc protrusion, significant spinal stenosis or neural foraminal narrowing. No significant stenosis in the visualized lower thoracic spine The conus is normal in morphology and signal intensity and terminates at the T12-L1 level. No suspicious regional marrow lesions with degenerative endplate changes at L4-5 and scattered small Schmorl's nodes. No vertebral body compression deformity in the lumbar region Paraspinal soft tissues are unremarkable. IMPRESSION: Spondylotic changes in the mid-lower lumbar region. Significant left lateral recess stenosis at L4-5. Relative spinal stenosis and moderate left neural foraminal narrowing at L3-4. Please see above discussion for individual level description. Normal conus. JOB #: [id number] Final Signed by: Eduardo Williamson MD Signed (Electronic Signature): 09/16/2023 4:05 pm Social History Social History Type Response Tobacco Current everyday tob acco user Tobacco Use:. 0.5 ppd per day. Sex Patient Care team information Care Team Personnel Name: KARISHMA TRIVEDI MD Position: No Access Member Role: Primary Care Physician Address: Address: [address] [place] [address]- Care Team Related Persons Name: VU GASCA
--- OUTSIDE RECORDS SUMMARY | 2023-10-30 08:43 | XMS_ITS | Continuity of Care Document ---
Author Name Unknown Organization [facility] Address [address] [place] [address] Encounter LTTL_[place] FIN NBR [id number] Date(s): 07/16/22 - 07/16/22 [facility] [address] [place], [place] [address] Encounter Diagnosis Dental infection(Discharge Diagnosis) - 07/16/22 Discharge Disposition: Home or Self Care Attending Physician: Paco Mendes MD Admitting Physician: Paco Mendes MD Allergies, Adverse Reactions, Alerts Substance Reaction Severity Status clindamycin Severe Active Functional Status 07/16/22 Other exposure to Infectious Disease Non e Medications !-Augmentin 875 mg-125 mg oral tablet 1 tab, Oral, every 12 hr, X 10 days, # 20 tab, 0 Refill(s), 07/26/22 8:30:00 EDT Start Date: 07/16/22 Stop Date: 07/26/22 Status: Ordered Lyrica 0 Refill(s) Start Date: 07/16/22 Status: Ordered methadone 0 Refill(s) Start Date: 07/16/22 Status: Ordered Paxil 0 Refill(s) Start Date: 07/16/22 Status: Ordered Valtrex 0 Refill(s) Start Date: 07/16/22 Status: Ordered Vyvanse 0 Refill(s) Start Date: 07/16/22 Status: Ordered Mental Status 07/16/22 Eye Opening Response Diane Spontaneous ly Best Verbal Response [place] Oriented Best Motor Response [place] Obeys comman ds Diane Coma Score 15 Results Laboratory List Name Date SARS-CoV-2 (Covid-19) AG ([facility]) POCT 07/16/22 Most recent to oldest [Reference Range]: 1 SARS-CoV or CoV-2 (COVID-19) Ag ([facility]) [Negative] Negative (07/16/22 7:48 AM) 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 Unknown *NA* (07/16/22 7:48 AM) Date of onset (Lab) Unknown *NA* (07/16/22 7:48 AM) Hospitalized due to COVID-19? Unknown *NA* (07/16/22 7:48 AM) In ICU? Unknown *NA* (07/16/22 7:48 AM) Group care resident? Unknown *NA* (07/16/22 7:48 AM) status? Unknown *NA* (07/16/22 7:48 AM) Vital Signs Most recent to oldest [Reference Range]: 1 Temperature Temporal Artery [36-38 Deg C ] 36.4 Deg C (07/16/22 7:37 AM) Peripheral Pulse Rate [60-100 bpm] 74 bp m (07/16/22 7:37 AM) Respiratory Rate [12-24 br/min] 16 br/mi n (07/16/22 7:37 AM) Blood Pressure [90-140/60-90 mmHg] 134/7 8mmHg (07/16/22 7:37 AM) Weight Dosing 90.00 kg (07/16/22 7:56 AM) Weight Estimated 90.00 kg (07/16/22 7:37 AM) Height/Length Dosing 170.000 cm (07/16/22 7:56 AM) Height/Length Estimated 170.000 cm (07/16/22 7:37 AM) Social History Social History Type Response Tobacco Current everyday tob acco user Tobacco Use:. 0.5 ppd per day. Sex Hospital Discharge Instructions Patient Education 07/16/2022 07:31:14 Dental Pain Dental Pain Dental pain is often a sign that something is wrong with your teeth or gums. It is also something that can occur following dental treatment. If you have dental pain, it is important to contact your dental care provider, especially if the cause of the pain has not been determined. Dental pain may beof varying intensity and can be caused by many things, including: ??? Tooth decay (cavities or caries). Cavities are caused by bacteria that produce acids that irritate the nerve of your tooth, making it sensitive to air and hot or cold temperatures. This eventually causes discomfort or pain. ??? Abscess or infection. Once the bacteria reach the inner part of the tooth (pulp), a bacterial infection (dental abscess) can occur. Pus typically collects at the end of the root of a tooth. ??? Injury. ??? A crack in the tooth. ??? Gum recession exposing the root, and possibly the nerves, of a tooth. ??? Gum (periodontal)disease. ??? Abnormal grinding or clenching. ??? Poor or improper home care. ??? An unknown reason (idiopathic). Your pain may be mild or severe. It may occur when you are: ??? Chewing. ??? Exposed to hot or cold temperatures. ??? Eating or drinking sugary foods or beverages, such as soda or candy. Your pain may be constant, or it may come and go without cause. Follow these instructions at home: The following actions may help to lessen any discomfort that you are feeling before or after getting dental care. Medicines ??? Take tgmk-cee-fmtdwwf and prescription medicines only as told by your dental care provider. ??? If you were prescribed an antibiotic medicine, take it as told by your dental care provider. Donot stop taking the antibiotic even if you start to feel better. Eating and drinking Avoid foods or drinks that cause you pain, such as: ??? Very hot or very cold foods or drinks. ??? Sweet or sugary foods or drinks. Managing pain and swelling ??? Ice can sometimes be used to reduce pain and swelling, especially if the pain is following dental treatment. ??? If directed, put ice on the painful area of your face. To do this: ??? Put ice in a plastic bag. ??? Place a towel between your skin and the bag. ??? Leave the ice on for 20 minutes, 2???3 times a day. ??? Remove the ice if your skin turns bright red. This is very important. If you cannot feel pain, heat, or cold, you have a greater risk of damage to the area. Brushing your teeth ??? To keep your mouth and gums healthy, brush your teeth twice a day using a fluoride toothpaste. ??? Use a toothpaste made for sensitive teeth as directed by your dental care provider, especially if the root is exposed. ??? Always brush your teeth with a soft-bristled toothbrush. This will help prevent irritation to your gums. General instructions ??? Floss at least once a day. ??? Do not apply heat to the outside of the face. ??? Gargle with a mixture of salt and water 3???4 times a day or as needed. To make salt water, completely dissolve ?1 tsp (3???6 g) of salt in 1 cup (237 mL) of warm water. ??? Keep all follow-up visits. This is important. Contact a dental care provider if: ??? You have any unexplained dental pain. ??? Your pain is not controlled with medicines. ??? Your symptoms get worse. ??? You have new symptoms. Get help right away if: ??? You are unable to open your mouth. ??? You are having trouble breathing or swallowing. ??? You have a fever. ??? You notice that your face, neck, or jaw is swollen. These symptoms may represent a serious problem that is an emergency. Do not wait to see if the symptoms will go away. Get medical help right away. Call your local emergency services (911 in the [place] Do not drive yourself to the hospital. Summary ??? Dental pain may be caused by many things, including tooth decay and infection. ??? Your pain may be mild or severe. ??? Take zdyk-vof-nhuhqwc and prescription medicines only as told by your dental care provider. ??? Watch your dental pain for any changes. Let your dental care provider know if your symptoms getworse. This information is not intended to replace advice given to you by your health care provider. Make sure you discuss any questions you have with your health care provider. Document Revised: 01/30/2021 Document Reviewed: 01/30/2021 [employer] Patient Education ?? 2021 Room 77. Follow Up Care 07/16/2022 07:37:13 With:Your dentist Address: When:1 week Physician Emergency department Note * Paco Mendes MD: PERFORM Event Display: ED Note Physician Authored Date: [id number] NEHEMIAS PINTO :1980 Age:42 years Sex:Male Visit Date:07/16/2022 Basic Information Time Seen: Paco Mendes MD / 07/16/2022 08:26 Chief Complaint Patient complaints of dental pain that started this AM. Does not see a dentist. History Of Present Illness: 42-year-old male presents ER complaining of dental pain. ??The patient states has had??decay to the??upper middle??tooth for some time but it has become painful over the past few days.?? No drainage from the area. ??No difficulty breathing or swallowing. ??No fevers.?? He has a dentist but he is not sure if she can take care of it. Review of Systems: CONSTITUTIONAL:??No fevers or chills. ENT:??No headache or neck pain. CARDIOVASCULAR:??No chest pain or passing out episodes. RESPIRATORY:??No cough or shortness of breath. GI:??No vomiting or diarrhea. NEUROLOGIC:??No focal numbness or weakness. ?? Review of systems otherwise as stated in HPI Physical Exam Vitals & Measurements T:??36.4?C ??(Temporal Artery)?? HR:??74??(Peripheral)?? RR:??16?? BP:??134/78?? SpO2:??98%?? HT:??170.000??cm?? WT:??90.00??kg??(Estimated)?? O2 Therapy:??Room air?? GENERAL:??Awake and alert. ??Mild discomfort. HEENT:??Normocephalic, atraumatic. ??No asymmetric facial swelling. ??No trismus or drooling. ??Inspection of the oral cavity reveals posterior oropharynx widely patent. ??There are several decayed teeth. ??The tooth in question is #8 with advanced decay and erosion near to the gumline. ??Diffuse tenderness to the area without palpable drainable abscess. HEART:??Regular rate and rhythm. LUNGS:??No respiratory distress. EXTREMITIES:??No obvious deformity. NEUROLOGIC:??Awake, alert, and oriented x3. ??Moves all extremities. SKIN:??Warm and dry. Medical Decision Making: Dental caries with pulpitis. ??No evidence for drainable abscess. ??Afebrile nontoxic-appearing. ??No airway issue.?? I have initiated Augmentin, ibuprofen for pain,??recommendation to follow-up withhis dentist to see if??extraction may be possible. ??He was given a dental resource list??for otheroptions in case he needs??an oral surgeon??or can have a referral from his primary dentist if necessary.?? Follow-up as directed, return if worse. Procedure No Qualifying Data Assessment/Plan 1.??Dental infection??K04.7 Orders: !-Augmentin 875 mg-125 mg oral tablet, 1 tab, Oral, every 12 hr, X 10 days, # 20 tab, 0 Refill(s), 07/26/22 8:30:00 EDT ibuprofen, 800 mg = 1 tab, Oral, Tab, Once, First Dose: 07/16/22 8:30:00 EST, Stop Date: 07/16/22 8:30:00 EST, Physician Stop Discharge Patient, 07/16/22 8:31:00 EST Patient Education Dental Pain Follow Up With When Contact Information Your dentist Within 1 week Additional Instructions: Medication Reconciliation New Prescription amoxicillin-clavulanate (!-Augmentin 875 mg-125 mg oral tablet)1 tab Oral (given by mouth) every 12hours for 10 Days. Refills: 0. ?? Unchanged lisdexamfetamine (Vyvanse) ?? methadone ?? PARoxetine (Paxil) ?? pregabalin (Lyrica) ?? valACYclovir (Valtrex) Problem List/Past Medical History Ongoing No qualifying data Historical No qualifying data Allergies clindamycin Social History Alcohol Past Electronic Cigarette/Vaping Electronic Cigarette Use: Never. Tobacco Current everyday tobacco user Tobacco Use:. 0.5 ppd per day. Lab Results Infectious Disease?? LATEST RESULTS?? SARS-CoV or CoV-2 (COVID-19) Ag ([facility])?? 07/16/22 07:48?? Negative?? 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 Unknown?? Symptomatic as defined by CDC??? 07/16/22 07:48?? Unknown?? Date of onset (Lab)?? 07/16/22 07:48?? Unknown?? Hospitalized due to COVID-19??? 07/16/22 07:48?? Unknown?? In ICU??? 07/16/22 07:48?? Unknown?? Group care resident??? 07/16/22 07:48?? Unknown?? status??? 07/16/22 07:48?? Unknown? Electronically Signed on 07/16/22 08:33 AM Paco Mendes MD Emergency department Discharge instructions * Paco Mendes MD: PERFORM Event Display: ED Discharge Information Authored Date: [id number] NEHEMIAS PINTO :1980 Age:42 years Sex:Male Visit Date:07/16/2022 Discharge Instructions We would like to thank you for allowing us to assist you with your healthcare needs. The following includes patient education materials and information regarding your injury/illness. Diagnosis from Today's Visit Dental infection Discharge Vitals Temperature??(Temporal Artery) 97.5 ??F (36.4 ??C) Heart Rate??(Peripheral) 74 Respiratory Rate?? 16 Blood Pressure?? 134/78?? Height?? 66.93 in (170.000 cm) Weight??(Estimated) 198.45 lb (90.00 kg) Allergies clindamycin What to Do Next You Need to Schedule the Following Appointments Follow Up with??Your dentist When:??Within 1 week You were treated today on an emergency basis; it may be noriega to contact your primary care provider to notify them of your visit today. You may have been referred to your regular doctor or a specialist, please follow up as instructed. If your condition worsens or you can't get in to see the doctor, contact the Emergency Department. Medications What How Much When Instructions Next Dose New amoxicillin-clavulanate (!- Augmentin 875 mg-125 mg oral tablet) 1 tab Oral (given by mouth) Every 12 hours Duration: 10 Days Printed Prescription Unchanged lisdexamfetamine (Vyvanse) Unchanged methadone Unchanged PARoxetine (Paxil) Unchanged pregabalin (Lyrica) Unchanged valACYclovir (Valtrex) Education Materials Dental Pain Dental pain is often a sign that something is wrong with your teeth or gums. It is also something that can occur following dental treatment. If you have dental pain, it is important to contact your dental care provider, especially if the cause of the pain has not been determined. Dental pain may beof varying intensity and can be caused by many things, including: ? Tooth decay (cavities or caries). Cavities are caused by bacteria that produce acids that irritate the nerve of your tooth, making it sensitive to air and hot or cold temperatures. This eventually causes discomfort or pain. ? Abscess or infection. Once the bacteria reach the inner part of the tooth (pulp), a bacterial infection (dental abscess) can occur. Pus typically collects at the end of the root of a tooth. ? Injury. ? A crack in the tooth. ? Gum recession exposing the root, and possibly the nerves, of a tooth. ? Gum (periodontal)disease. ? Abnormal grinding or clenching. ? Poor or improper home care. ? An unknown reason (idiopathic). Your pain may be mild or severe. It may occur when you are: ? Chewing. ? Exposed to hot or cold temperatures. ? Eating or drinking sugary foods or beverages, such as soda or candy. Your pain may be constant, or it may come and go without cause. Follow these instructions at home: The following actions may help to lessen any discomfort that you are feeling before or after getting dental care. Medicines ? Take lkav-xno-loskjgi and prescription medicines only as told by your dental care provider. ? If you were prescribed an antibiotic medicine, take it as told by your dental care provider. Do notstop taking the antibiotic even if you start to feel better. Eating and drinking Avoid foods or drinks that cause you pain, such as: ? Very hot or very cold foods or drinks. ? Sweet or sugary foods or drinks. Managing pain and swelling ? Ice can sometimes be used to reduce pain and swelling, especially if the pain is following dental treatment. ? If directed, put ice on the painful area of your face. To do this: ? Put ice in a plastic bag. ? Place a towel between your skin and the bag. ? Leave the ice on for 20 minutes, 2???3 times a day. ? Remove the ice if your skin turns bright red. This is very important. If you cannot feel pain, heat, or cold, you have a greater risk of damage to the area. Brushing your teeth ? To keep your mouth and gums healthy, brush your teeth twice a day using a fluoride toothpaste. ? Use a toothpaste made for sensitive teeth as directed by your dental care provider, especially if the root is exposed. ? Always brush your teeth with a soft-bristled toothbrush. This will help prevent irritation to your gums. General instructions ? Floss at least once a day. ? Do not apply heat to the outside of the face. ? Gargle with a mixture of salt and water 3???4 times a day or as needed. To make salt water, completely dissolve ?1 tsp (3???6 g) of salt in 1 cup (237 mL) of warm water. ? Keep all follow-up visits. This is important. Contact a dental care provider if: ? You have any unexplained dental pain. ? Your pain is not controlled with medicines. ? Your symptoms get worse. ? You have new symptoms. Get help right away if: ? You are unable to open your mouth. ? You are having trouble breathing or swallowing. ? You have a fever. ? You notice that your face, neck, or jaw is swollen. These symptoms may represent a serious problem that is an emergency. Do not wait to see if the symptoms will go away. Get medical help right away. Call your local emergency services (911 in the [place] Do not drive yourself to the hospital. Summary ? Dental pain may be caused by many things, including tooth decay and infection. ? Your pain may be mild or severe. ? Take yyzv-spa-vvnoeak and prescription medicines only as told by your dental care provider. ? Watch your dental pain for any changes. Let your dental care provider know if your symptoms get worse. This information is not intended to replace advice given to you by your health care provider. Make sure you discuss any questions you have with your health care provider. Document Revised: 01/30/2021 Document Reviewed: 01/30/2021 [employer] Patient Education ?? 2021 [employer] 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 Unknown 07/16/2022 07:48 EST Date of onset (Lab) Unknown 07/16/2022 07:48 EST Hospitalized due to COVID-19? Unknown 07/16/2022 07:48 EST In ICU? Unknown 07/16/2022 07:48 EST Group care resident? Unknown 07/16/2022 07:48 EST status? 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 Patient/Corn Cutter Operator Name: Patient/Corn Cutter Operator Signature: Relationship to Patient: Witness Name/Signature: Date: Electronically Signed on: 07/16/2022 08:31 ESTSigned by: Patient Care team information Care Team Personnel Name: Paco Mendes MD Position: Physician Member Role: Attending Physician Address: Address: [address] [place] [address] Name: Sherry Spicer Position: Nurse Member Role: ED Nurse Care Team Related Persons Name: VU GASCA
--- OUTSIDE RECORDS SUMMARY | 2023-10-30 08:43 | XMS_ITS | Continuity of Care Document ---
Author Name Unknown Organization [facility] Address [address] [place] [address] Encounter LTTL_[place] FIN NBR [id number] Date(s): 05/09/22 - 11/14/22 [facility] [address] [place] [address]- Discharge Disposition: Home-No Follow Up Attending Physician: Megan Garbiay Allergies, Adverse Reactions, Alerts Substance Reaction Severity Status clindamycin Severe Active Medications Lyrica 0 Refill(s) Start Date: 07/16/22 Status: Ordered methadone 0 Refill(s) Start Date: 07/16/22 Status: Ordered Paxil 0 Refill(s) Start Date: 07/16/22 Status: Ordered Valtrex 0 Refill(s) Start Date: 07/16/22 Status: Ordered Vyvanse 0 Refill(s) Start Date: 07/16/22 Status: Ordered Social History Social History Type Response Tobacco Current everyday tob acco user Tobacco Use:. 0.5 ppd per day. Sex Patient Care team information Care Team Related Persons Name: VU GASCA
--- NOTE | 2023-10-30 09:00 | RT.EKG_ITS ---
APPROVED REPORT Exam: Resting ECG Reason for Exam: TCA overdose Patient Location: I HR:64 bpm ECG Measurements Heart Rate 64 AXIS MI 177 P 66 QRSd 132 QRS 62 QT 506 T 39 QTc 522 Conclusion Sinus rhythm...normal P axis, V-rate 50- 99 IVCD
[2023-10-30] MEDS: MIDAZOLAM 50 MG in Normal Saline 90 ML 45 MG IV (09:54)
--- NOTE | 2023-10-30 10:30 | RT.EKG_ITS ---
APPROVED REPORT Exam: Resting ECG Reason for Exam: QRS Patient Location: I HR:56 bpm ECG Measurements Heart Rate 56 AXIS NC 191 P 62 QRSd 122 QRS 54 QT 552 T 26 QTc 533 Conclusion Sinus rhythm...normal P axis, V-rate 50- 99 Probable left atrial enlargement...P >50mS, <-0.10mV V1 Nonspecific intraventricular conduction delay...QRSd >115mS, not LBBB/RBBB
[2023-10-30] MEDS: Pantoprazole 40 MG VIAL IVP (11:19)
[2023-10-30] MEDS: Normal Saline Flush 10 ML SYR (11:20)
[2023-10-30] MEDS: Enoxaparin 40 MG/0.4 ML SYR SC (11:21)
[2023-10-30] MEDS: MIDAZOLAM 50 MG in Normal Saline 90 ML 15.06 MG IV ×2 (11:52→18:10)
--- NOTE | 2023-10-30 12:30 | RT.EKG_ITS ---
APPROVED REPORT Exam: Resting ECG Reason for Exam: QRS Patient Location: I HR:54 bpm ECG Measurements Heart Rate 54 AXIS [place] 148 P 57 QRSd 128 QRS 47 QT 555 T 43 QTc 527 Conclusion Sinus rhythm...normal P axis, V-rate 50- 99 Nonspecific intraventricular conduction delay...QRSd >115mS, not LBBB/RBBB
--- NOTE | 2023-10-30 13:38 | INITIAL_ITS ---
Date of service: 10/30/23 Time of Service: 13:38 Care Management Initial Assmt Initial Assessment Reason for Hospitalization: Intentional overdose Functional Status/Living Situation Patient Presentation: Arron is currently intubated at ICU level of care. He appeared comfortable when CM assessed him. Per [employer], his girlfriend requested gas gift cards, if possible, to be able to continue to support him in person; CM referred her to community [facility], which is open for walk in's today, or can be contacted by phone. Per chart review, this was an intentional overdose; CM will provide an interim safety plan until he is medically cleared, at which time NK will be contacted for a mental health evaluation. CM will continue to follow. Town of Residence: [place] Resides with: Other (S/O, [facility]) Employment Status: Employed ([employer]) Instrumental Activities of Daily Living (ADLs): Independent Medications Medication Management: No Issues/Barriers identified Advance Directives Advance Directives: Do you have an Advance Directive: N 09/06/12 14:01 AD On File at [facility]: N 07/26/12 12:53 Date Asked 10/30/23 10/30/23 08:41 AD Date Reviewed COLST On File at [facility] No 06/12/20 17:31 COLST Date Scanned Code Status Resuscitation Status Full Code Insurance Coverage/Financial Issues Insurance: [facility] ACO Member: Yes Care Team Visit Care Team Role Provider Type Glendy Cohen MD Primary Care Provider [facility] STAFF PHYSICIAN Carol Arredondo MD Emergency Provider [facility] STAFF PHYSICIAN Reynaldo Motta MD Admit Provider [facility] STAFF PHYSICIAN Attending Provider Discharge Potential Discharge Needs: PCP F/U Appt Anticipated Barriers to Discharge: Medical Status (currently intubated at ICU level of care) Patient/Family Education Needs: Review discharge instructions, discuss Ask Me Three Transportation: Private vehicle (dependent on disposition) Plan: Arron is being closely monitored at ICU level of care. Once he becomes medically cleared, he will have a mental health evaluation by [facility]. His transport will depend on disposition; private vehicle if returning home vs secure transport if transferring for mental health treatment. He will follow up with his PCP and discharge plan of care. CM will continue to follow. PFSH All Active Problems (Updated 10/30/23 @ 07:56 by Reynaldo Motta MD) Attempted suicide (Acute) Depression (Chronic) Long QT interval (Acute) TCA (tricyclic antidepressant) overdose of undetermined intent (Acute) Endotracheally intubated (Acute) Unresponsive (Acute) Tendinitis of long head of biceps brachii of left shoulder (Acute) subacromial corticosteroid injection 08/27/22 No-show for appointment (Acute) Tendonitis of long head of biceps brachii of right shoulder (Acute) subacromial corticosteroid injection 04/16/22 Arthritis of right acromioclavicular joint (Acute) MRSA carrier (Acute) Moderate recurrent major depression (Acute) ADHD (Acute) Mild persistent asthma in adult without complication (Acute) Hand dermatitis (Acute) Recurrent genital herpes (Acute) Tobacco abuse (Acute) Opioid dependence (Acute) Neck pain, chronic (Acute) Herniation of lumbar intervertebral disc with radiculopathy (Acute) Psoriasis (Chronic) Toothache (Acute) Deep venous thrombosis (Chronic) Abnormal LFTs (Acute) Common bile duct dilatation (Chronic) Constipation (Acute) Superficial thrombophlebitis (Acute) Alcohol withdrawal delirium (Acute) Discharge planning issues (Acute) DVT prophylaxis (Acute) Abdominal pain (Acute) Bronchitis (Acute) Vomiting (Acute) Acute epigastric pain (Acute) Dehydration (Acute) Medical History H/O acute pancreatitis H/O deep venous thrombosis Perforated ulcer Peptic ulcer disease Alcohol abuse quit in 2020 methadone from [facility] Surgical History (Updated 02/04/22 @ 11:53 by Nicole Muller RN, RN) History of esophagogastroduodenoscopy (EGD) H/O lumbar discectomy x2 12/24/21 C5-C7 ACDF S/P appendectomy Family History Mother Breast cancer Social History Smoking/Tobacco Use Status: Current every day Smoking risk assessment performed?: Yes Alcohol Intake: current Alcohol Intake frequency: 3 or more drinks per day Alcohol type: beer Drug use: Daily Substance use type: marijuana, heroin, painkillers and methamphetamine Current gender identity: male Do you feel safe at home: Yes Do you feel safe in your relationship?: Yes SDOH(Care Management) Screening Will the Patient Participate in the Screening?: Unable to obtain
--- NOTE | 2023-10-30 13:49 | PDOC.CMSAFE ---
Date of service: 10/30/23 Time of Service: 14:03 Care Management Safety Plan Status Status: Interim Reason for Wait Reason for Wait: Medical Clearance Safety Plan Safety Plan: Arron is currently admitted to the ICU for an intentional overdose. He is being monitored closely by ICU staff. Once he is medically cleared, he will be assessed by [facility] for a mental health evaluation. If screener deems patient meets criteria for psychiatric stabilization CM will facilitate interdepartmental huddle with [facility] screener for safety planning considerations and meet with patient to review [facility] policy and safety plan, establish individual wishes for treatment and maintain patient rights. In the interim; please note safety plan below to guide patient care while awaiting further assessment.? SAFETY PLAN: 1. Will remain on suicide precautions and in paper clothes.? 2. Will remain in room under direct supervision of staff at all times provided by QUIN, ARCHITECT heavy forging machine operator. 3. May have paper cups, plates, finger foods as well as a cardboard spoon with which to eat meals. 4. Follow [facility] Management of the Admitted Behavioral Health Patient policy. 5. Comfort bath system or shower, if able. 6. No personal belongings. 7. Visitors allowed at RN discretion. 8. Incoming/Outgoing calls by [facility] cordless phone only at this time. 9. Due to VOLUNTARY status, if patient wishes to leave [facility], staff will contact [facility] Crisis Screener ([phone]) and On-Call Corn Cooker ([phone]) as soon as possible. In the event of elopement, notify [facility] Police ([phone]). ? If deemed appropriate for inpatient psychiatric care, safety plan will be established with patient, and care team, to adhere to patient goals, identify restrictions based on behavioral status, address nutrition, and determine allowed personal belongings, tools for hygiene and personal care. As well plan will determine level of activity including ambulation, level of supervision, visitors, and determine privileges based on level of acuity, behaviors and level of engagement by patient.
[2023-10-30] MEDS: PROPOFOL 1,000 MG/100 ML BTL 15 MG IV (14:26)
--- NOTE | 2023-10-30 14:30 | RT.EKG_ITS ---
APPROVED REPORT Exam: Resting ECG Reason for Exam: QRS Patient Location: I HR:68 bpm ECG Measurements Heart Rate 68 AXIS OR 161 P 56 QRSd 131 QRS 56 QT 551 T 13 QTc 587 Conclusion Sinus rhythm...normal P axis, V-rate 50- 99 IVCD
[2023-10-30 15:17] LABS: BE (Venous) 1 mmol/L (-2-3); HCO3 (Venous) 26 mmol/L (23-28); O2 Sat (Venous) 98 %; TCO2 (Venous) 24 mmol/L (24-29); pCO2 (Venous) 48 mmHg (41-51); pH (Venous) 7.35 (7.31-7.41); pO2 (Venous) 103 mmHg
[2023-10-30 15:28] LABS: Anion Gap 7.9 mmol/L (3-11); BUN 10 mg/dL (7-18); CO2 27.1 mmol/L (21.0-32.0); CREATININE 0.7 mg/dL (0.70-1.30); Calcium 8.1 mg/dL (8.5-10.1); Chloride 109 mmol/L (98-107); Estimated GFR 117.25 (mL/min/1.73m2); Glucose 105 mg/dL (74-106); Potassium 3.6 mmol/L (3.5-5.1); Sodium 144 mmol/L (136-145)
[2023-10-30] MEDS: MAGNESIUM SULFATE 2 GM/50 ML BAG IVINF (15:41)
[2023-10-30] MEDS: SODIUM BICARBONATE 150 MEQ in DEXTROSE 5%-WATER 850 ML IV (17:00)
[2023-10-30 18:26] LABS: BE (Venous) 8 mmol/L (-2-3); HCO3 (Venous) 32 mmol/L (23-28); O2 Sat (Venous) 97 %; TCO2 (Venous) 28 mmol/L (24-29); pCO2 (Venous) 46 mmHg (41-51); pH (Venous) 7.45 (7.31-7.41); pO2 (Venous) 81 mmHg
[2023-10-30 18:38] LABS: Anion Gap 5.6 mmol/L (3-11); BUN 10 mg/dL (7-18); CO2 32.4 mmol/L (21.0-32.0); CREATININE 0.7 mg/dL (0.70-1.30); Calcium 8.1 mg/dL (8.5-10.1); Chloride 108 mmol/L (98-107); Estimated GFR 117.25 (mL/min/1.73m2); Glucose 119 mg/dL (74-106); Potassium 3.3 mmol/L (3.5-5.1); Sodium 146 mmol/L (136-145)
[2023-10-30 20:12] LABS: BE (Venous) 9 mmol/L (-2-3); HCO3 (Venous) 33 mmol/L (23-28); O2 Sat (Venous) 98 %; TCO2 (Venous) 30 mmol/L (24-29); pCO2 (Venous) 48 mmHg (41-51); pH (Venous) 7.45 (7.31-7.41); pO2 (Venous) 91 mmHg
[2023-10-30 20:25] LABS: Anion Gap 5.8 mmol/L (3-11); BUN 9 mg/dL (7-18); CO2 33.2 mmol/L (21.0-32.0); CREATININE 0.7 mg/dL (0.70-1.30); Calcium 8.2 mg/dL (8.5-10.1); Chloride 108 mmol/L (98-107); Estimated GFR 117.25 (mL/min/1.73m2); Glucose 115 mg/dL (74-106); Potassium 3.1 mmol/L (3.5-5.1); Sodium 147 mmol/L (136-145)
--- NOTE | 2023-10-30 20:45 | RT.EKG_ITS ---
APPROVED REPORT Exam: Resting ECG Reason for Exam: TCA overdose Patient Location: I HR:55 bpm ECG Measurements Heart Rate 55 AXIS MI 189 P 73 QRSd 127 QRS 73 QT 586 T 25 QTc 561 Conclusion Sinus rhythm...normal P axis, V-rate 50- 99 IVCD
[2023-10-30] MEDS: POTASSIUM CHLORIDE 10 MEQ/100 ML BAG 100 MEQ IVINF (21:08)
[2023-10-30 22:23] LABS: BE (Venous) 7 mmol/L (-2-3); HCO3 (Venous) 32 mmol/L (23-28); O2 Sat (Venous) 98 %; TCO2 (Venous) 33 mmol/L (24-29); pCO2 (Venous) 47 mmHg (41-51); pH (Venous) 7.43 (7.31-7.41); pO2 (Venous) 112 mmHg
[2023-10-30 22:26] LABS: Anion Gap 3.5 mmol/L (3-11); BUN 9 mg/dL (7-18); CO2 34.5 mmol/L (21.0-32.0); CREATININE 0.8 mg/dL (0.70-1.30); Calcium 8.1 mg/dL (8.5-10.1); Chloride 108 mmol/L (98-107); Estimated GFR 112.61 (mL/min/1.73m2); Glucose 108 mg/dL (74-106); Potassium 3.4 mmol/L (3.5-5.1); Sodium 146 mmol/L (136-145)
[2023-10-30] MEDS: SODIUM BICARBONATE 150 MEQ in DEXTROSE 5%-WATER 850 ML 75 MEQ IV (23:31)
[2023-10-31] VITALS (84 sets, daily range): BP systolic 134–166; BP diastolic 77–112; PULSE 70–110; RESP 12–28; TEMP 35.5–38.3; O2SAT 90–99
[2023-10-31 00:16] LABS: BE (Venous) 11 mmol/L (-2-3); HCO3 (Venous) 35 mmol/L (23-28); O2 Sat (Venous) 96 %; TCO2 (Venous) 31 mmol/L (24-29); pCO2 (Venous) 49 mmHg (41-51); pH (Venous) 7.46 (7.31-7.41); pO2 (Venous) 76 mmHg
[2023-10-31 00:29] LABS: Anion Gap 3.5 mmol/L (3-11); BUN 9 mg/dL (7-18); CO2 35.5 mmol/L (21.0-32.0); CREATININE 0.7 mg/dL (0.70-1.30); Calcium 7.9 mg/dL (8.5-10.1); Chloride 106 mmol/L (98-107); Estimated GFR 117.25 (mL/min/1.73m2); Glucose 89 mg/dL (74-106); Potassium 3.3 mmol/L (3.5-5.1); Sodium 145 mmol/L (136-145)
--- NOTE | 2023-10-31 00:45 | RT.EKG_ITS ---
APPROVED REPORT Exam: Resting ECG Reason for Exam: TCA overdose Patient Location: I HR:95 bpm ECG Measurements Heart Rate 95 AXIS CA [id number] P [id number] QRSd 112 QRS 69 QT 463 T 47 QTc 582 Conclusion Accelerated junctional rhythm...absent P waves, accele'd V-rate Borderline intraventricular conduction delay...QRSd >112mS Minimal ST depression, anterolateral leads...ST <-0.04mV, I aVL V2-V6 Prolonged QT interval...QTc >500mS
[2023-10-31] MEDS: Normal Saline Flush 10 ML SYR IVP ×2 (01:52→06:47)
[2023-10-31 02:29] LABS: BE (Venous) 12 mmol/L (-2-3); HCO3 (Venous) 35 mmol/L (23-28); O2 Sat (Venous) 99 %; TCO2 (Venous) 31 mmol/L (24-29); pCO2 (Venous) 45 mmHg (41-51); pO2 (Venous) 102 mmHg
[2023-10-31 02:45] LABS: Anion Gap 3.6 mmol/L (3-11); BUN 10 mg/dL (7-18); CO2 35.4 mmol/L (21.0-32.0); CREATININE 0.8 mg/dL (0.70-1.30); Calcium 7.9 mg/dL (8.5-10.1); Chloride 105 mmol/L (98-107); Estimated GFR 112.61 (mL/min/1.73m2); Glucose 94 mg/dL (74-106); Potassium 3.3 mmol/L (3.5-5.1); Sodium 144 mmol/L (136-145)
[2023-10-31] MEDS: MIDAZOLAM 50 MG in Normal Saline 90 ML 7.53 MG IV (02:56)
[2023-10-31] MEDS: PROPOFOL 1,000 MG/100 ML BTL 10 MG IV (03:14)
[2023-10-31 04:24] LABS: BE (Venous) 12 mmol/L (-2-3); HCO3 (Venous) 35 mmol/L (23-28); O2 Sat (Venous) 97 %; TCO2 (Venous) 31 mmol/L (24-29); pCO2 (Venous) 45 mmHg (41-51); pO2 (Venous) 86 mmHg
[2023-10-31 04:34] LABS: Anion Gap 3.3 mmol/L (3-11); BUN 10 mg/dL (7-18); CO2 35.7 mmol/L (21.0-32.0); CREATININE 0.9 mg/dL (0.70-1.30); Chloride 105 mmol/L (98-107); Estimated GFR 108.68 (mL/min/1.73m2); Glucose 96 mg/dL (74-106); Potassium 3.3 mmol/L (3.5-5.1); Sodium 144 mmol/L (136-145)
--- NOTE | 2023-10-31 04:45 | RT.EKG_ITS ---
APPROVED REPORT Exam: Resting ECG Reason for Exam: TCA overdose Patient Location: I HR:75 bpm ECG Measurements Heart Rate 75 AXIS AK 156 P 62 QRSd 120 QRS 70 QT 479 T 13 QTc 536 Conclusion Sinus rhythm...normal P axis, V-rate 50- 99 Nonspecific intraventricular conduction delay...QRSd >115mS, not LBBB/RBBB
[2023-10-31 05:11] LABS: Magnesium 2.3 mg/dL (1.8-2.4); PHOSPHORUS 3.1 mg/dL (2.6-4.7)
[2023-10-31 06:47] LABS: BE (Venous) 11 mmol/L (-2-3); HCO3 (Venous) 34 mmol/L (23-28); O2 Sat (Venous) 96 %; TCO2 (Venous) 30 mmol/L (24-29); pCO2 (Venous) 45 mmHg (41-51); pH (Venous) 7.48 (7.31-7.41); pO2 (Venous) 74 mmHg
[2023-10-31] MEDS: POTASSIUM CHLORIDE 10 MEQ/100 ML BAG 100 MEQ IVINF ×2 (06:48→07:59)
[2023-10-31 07:05] LABS: HCT 37.2 % (40.0-50.0); HGB 12.2 g/dL (13.5-17.5); MCH 30.7 pg (27.0-33.0); MCHC 32.8 % (32.0-36.0); MCV 94 fL (80-95); MPV 8.7 fL (8.0-11.0); Platelet Count 268 10^3/uL (130-400); RBC 3.97 10^6/uL (4.36-5.78); RDW 14.4 % (11.8-14.1); RDW-SD 49.1 fL; WBC 9.07 10^3/uL (4.4-10.8)
[2023-10-31 07:06] LABS: ALT 24 U/L (16-63); AST 22 U/L (15-37); Albumin 3.1 g/dL (3.4-5.0); Alkaline Phosphatase 89 U/L (46-116); Anion Gap 4.8 mmol/L (3-11); BUN 9 mg/dL (7-18); Bilirubin, Total 0.62 mg/dL (0.2-1.0); CO2 34.2 mmol/L (21.0-32.0); Calcium 7.9 mg/dL (8.5-10.1); Chloride 104 mmol/L (98-107); Estimated GFR 95.77 (mL/min/1.73m2); Glucose 106 mg/dL (74-106); Potassium 3.3 mmol/L (3.5-5.1); Sodium 143 mmol/L (136-145); Total Protein 6.2 g/dL (6.4-8.2)
[2023-10-31] MEDS: Pantoprazole 40 MG VIAL IVP (07:58)
[2023-10-31] MEDS: Enoxaparin 40 MG/0.4 ML SYR SC (08:29)
[2023-10-31] MEDS: POTASSIUM CHLORIDE 20 MEQ/100 ML BAG 50 MEQ IVINF (09:45)
[2023-10-31 10:00] LABS: BE (Venous) 8 mmol/L (-2-3); HCO3 (Venous) 32 mmol/L (23-28); O2 Sat (Venous) 82 %; TCO2 (Venous) 29 mmol/L (24-29); pCO2 (Venous) 50 mmHg (41-51); pH (Venous) 7.42 (7.31-7.41); pO2 (Venous) 46 mmHg
[2023-10-31 10:13] LABS: Anion Gap 6.7 mmol/L (3-11); BUN 9 mg/dL (7-18); CO2 32.3 mmol/L (21.0-32.0); CREATININE 1.1 mg/dL (0.70-1.30); Calcium 8.1 mg/dL (8.5-10.1); Chloride 104 mmol/L (98-107); Estimated GFR 85.42 (mL/min/1.73m2); Glucose 109 mg/dL (74-106); Sodium 143 mmol/L (136-145)
--- NOTE | 2023-10-31 10:43 | PHACLINREV_ITS ---
Pharmacy Admission Review Admission Clinical Review Admission Pharmacy Review: Attempted suicide (Acute) Long QT interval (Acute) TCA (tricyclic antidepressant) overdose of undetermined intent (Acute) Endotracheally intubated (Acute) clindamycin Allergy (Intermediate, Verified 10/30/23 04:36) Hives NSAIDS (Non-Steroidal Anti-Inflamma Adverse Reaction (Intermediate, Verified 10/30/23 04:36) perforated ulcer Resuscitation Status Full Code Height 5 ft 8 in Weight 77.8 kg Comments Comments/Follow Ups: Begin trial of weaning off Vent, pt reportedly intentionally overdosed on Amitriptyline/Flexeril; guidance from poison control, intubated in the field Pharmacy Admission Review Renal Dosing Renal Dosing: BUN 9 mg/dL (7-18) 10/31/23 09:55 Creatinine 1.1 mg/dL (0.70-1.30) 10/31/23 09:55 Medications needing adjustments: Reviewed (CrCl~95ml/min) Anticoagulation Anticoagulation: Hgb 12.2 g/dL (13.5-17.5) L 10/31/23 06:40 Hct 37.2 % (40.0-50.0) L 10/31/23 06:40 Plt Count 268 10^3/uL (130-400) 10/31/23 06:40 INR 1.0 (0.9-1.1) 10/30/23 03:15 Creatinine 1.1 mg/dL (0.70-1.30) 10/31/23 09:55 DVT Prophylaxis: Reviewed Medications: Enoxaparin Relevant Labs Relevant Labs: Sodium 143 mmol/L (136-145) 10/31/23 09:55 Potassium 4.0 mmol/L (3.5-5.1) 10/31/23 09:55 Chloride 104 mmol/L (98-107) 10/31/23 09:55 Phosphorus 3.1 mg/dL (2.6-4.7) 10/31/23 04:49 Magnesium 2.3 mg/dL (1.8-2.4) 10/31/23 04:49 K+ 3.3 spline rolling machine job setter, rec'd 10meq IV x2, repeat lab 4.0 with more KCL ordered Electrolytes, C-Reactive P, ESR: Intervened (Had to clarify w/MD about amount of KCL administered and make adjustments) DM Control DM Control: N/A Cardiac Review Cardiac Review: Troponin I < 50 ng/L (< or =60) 10/30/23 06:25 BP, HR, EF%: Reviewed (BP 153/88, HR 91) QTc Review QTc: Reviewed (QTC 527 (down from highest of 572)...chronic Methadone use) IV to PO Switch IV Medications: N/A (Pt mechanically ventilated) Home Meds Home Med List reviewed: Reviewed (Verified Methadone dose w/[facility] 125mg daily (weekly take-homes), OD on Amitriptyline, Flexeril, Vyvanse ([facility] last fill 10/09/23 70mg in [place]), Lyrica does not show on [facility] report) Current Meds Current Medication Order Review: Reviewed (Titrated very quickly in the ER on Fentanyl infusion, as high as 1110 mcg/hr which is above the hospital protocol, Fentanyl currently at 2 mcg/kg/hr=15ml/hr which follows the hospital protocol; added Midazolam and Propofol. Now Midazolam discont'd, started Precedex) Comments: Will begin weaning off vent, initial ER orders with infusions were not documented in [facility] properly per oncoming 7am nurse in the ED, explained we had a shortage of Fentanyl supply, but were able to obtain a large quantitiy for subsequent infusions at the MD request. Comments Comments/Follow Ups: Begin trial of weaning off Vent, pt reportedly intentionally overdosed on Amitriptyline/Flexeril; guidance from poison control, intubated in the field
[2023-10-31] MEDS: dexmedeTOMidine IN 0.9 % NACL 400 MCG/100 ML BTL 7.78 MCG IV (11:08)
[2023-10-31] MEDS: PROPOFOL 1,000 MG/100 ML BTL 3.734 MG IV (11:15)
[2023-10-31] MEDS: POTASSIUM CHLORIDE/D5-0.45NACL 1,000 ML 100 MEQ IV ×2 (11:20→21:04)
[2023-10-31] MEDS: PROPOFOL 1,000 MG/100 ML BTL 2.7 MG (11:49)
[2023-10-31 12:07] LABS: BE (Venous) 8 mmol/L (-2-3); HCO3 (Venous) 33 mmol/L (23-28); O2 Sat (Venous) 63 %; TCO2 (Venous) 29 mmol/L (24-29); pCO2 (Venous) 53 mmHg (41-51); pH (Venous) 7.39 (7.31-7.41); pO2 (Venous) 34 mmHg
--- NOTE | 2023-10-31 12:27 | CMSP_ITS ---
Date of service: 10/31/23 Time of Service: 12:27 Care Management Safety Plan Status Status: Interim Reason for Wait Reason for Wait: Medical Clearance Safety Plan Safety Plan: Arron is currently intubated and admitted to the ICU for an intentional overdose. He is being monitored closely by ICU staff. Once he is medically cleared, he will be assessed by [facility] for a mental health evaluation. If screener deems patient meets criteria for psychiatric stabilization CM will facilitate interdepartmental huddle with [facility] screener for safety planning considerations and meet with patient to review [facility] policy and safety plan, establish individual wishes for treatment and maintain patient rights. In the interim; please note safety plan below to guide patient care while awaiting further assessment.? INTERIM SAFETY PLAN: 1. Will remain on suicide precautions and in hospital gown.? 2. Will remain in room under direct supervision of staff at all times provided by QUIN, TRAFFIC RATE CLERK kitchen and counter worker. 3. May have paper cups, plates, finger foods as well as a cardboard spoon with which to eat meals. 4. Follow [facility] Management of the Admitted Behavioral Health Patient policy. 5. Comfort bath system or shower, if able. 6. No personal belongings. 7. Visitors allowed at RN discretion. 8. Incoming/Outgoing calls by [facility] cordless phone only at this time. 9. Due to INTERIM status, if patient wishes to leave [facility], staff will contact [facility] Crisis Screener ([phone]) and On-Call Wound Care Specialist ([phone]) as soon as possible. In the event of elopement, notify [facility] Police ([phone]). ? If deemed appropriate for inpatient psychiatric care, safety plan will be established with patient, and care team, to adhere to patient goals, identify restrictions based on behavioral status, address nutrition, and determine allowed personal belongings, tools for hygiene and personal care. As well plan will determine level of activity including ambulation, level of supervision, visitors, and determine privileges based on level of acuity, behaviors and level of engagement by patient.
--- NOTE | 2023-10-31 12:45 | RT.EKG_ITS ---
APPROVED REPORT Exam: Resting ECG Reason for Exam: TCA overdose Patient Location: I HR:80 bpm ECG Measurements Heart Rate 80 AXIS NM 148 P 62 QRSd 118 QRS 69 QT 425 T 33 QTc 491 Conclusion Sinus rhythm...normal P axis, V-rate 50- 99 Normal Electrocardiogram
[2023-10-31 13:08] LABS: BE (Venous) 7 mmol/L (-2-3); HCO3 (Venous) 31 mmol/L (23-28); O2 Sat (Venous) 74 %; TCO2 (Venous) 28 mmol/L (24-29); pCO2 (Venous) 51 mmHg (41-51); pO2 (Venous) 39 mmHg
[2023-10-31 13:26] LABS: Anion Gap 3.4 mmol/L (3-11); BUN 8 mg/dL (7-18); CO2 33.6 mmol/L (21.0-32.0); Calcium 8.1 mg/dL (8.5-10.1); Chloride 104 mmol/L (98-107); Estimated GFR 95.77 (mL/min/1.73m2); Glucose 127 mg/dL (74-106); Potassium 4.1 mmol/L (3.5-5.1); Sodium 141 mmol/L (136-145)
--- NOTE | 2023-10-31 13:30 | PGE_ITS ---
Date of Service Date of service: 10/31/23 Time of Service: 13:30 Assessment and Plan Assessment and plan (1) TCA (tricyclic antidepressant) overdose of undetermined intent: Status: Acute Assessment and plan: -Patient initially found unresponsive -patient's girlfriend reported that he was found next to empty bottle of cyclobenzaprine at midnight, and an empty bottle of amitriptyline based on what it was last filled usual supply it was at max 1400 mg, history and EKGs consistent with tricyclic antidepressant overdose. -Case was discussed with poison control: -Patient was given 2 amps of bicarb in the emergency department, bicarbonate drip with goal pH 7.4-7.5, currently off, following VBG -Monitoring BMP and EKGs, now q 4 hr -Patient will remain intubated and sedated plan to wean and try spontaneous breathing trial in AM -currently on propofol, fentanyl and versed. QTc better so try to get off Versed as this medication increases complications -Continue fentanyl as patient chronically on methadone for OUD (2) Endotracheally intubated: Status: Acute Assessment and plan: - As noted above (3) Long QT interval: Status: Acute Assessment and plan: - Related to TCAs in addition to methadone, low K+/Mg+ replaced. Improved on most recent EKG. (4) Depression: Status: Chronic Assessment and plan: - Holding home medications (5) Attempted suicide: Status: Acute Assessment and plan: - Incident reportedly occurred after a fight with his girlfriend - Patient will need psychiatric consult once he is awake and appropriate to consider placement. (6) Peptic ulcer disease: Assessment and plan: Concern for blood tinged fluid in NGT 10/30. Borderline anemia, but stable. Follow this, continue PPI, but do not withhold DVT prophylaxis for now (7) DVT prophylaxis: Status: Acute Assessment and plan: enoxaparin Subjective Subjective Interval history since last seen: 43 yo M with TCA overdose (amitrpytiline/cyclobenzaprine) Events: On bicarbonate drip overnight Hypothermic overnight, given bear hugger Magnesium and potassium supplemented Patient intubated and sedated. Exam Narrative Exam Narrative: Patient intubated and sedated, does not appear to be in any acute distress, ET and NG tube in place. Pupils equal and reactive bilaterally. Heart regular rate rhythm, lungs mechanical breath sounds without diminished or coarse sounds, abdomen soft, nontender, nondistended. Ext no cyanosis or edema. Skin with superficial linear scratches across abdomen and legs, no open wounds. Objective Last Vital Signs Temp 37.6 C H 10/31/23 12:40 Pulse 85 10/31/23 12:00 Resp 13 10/31/23 12:27 BP 154/93 H 10/31/23 12:27 Pulse Ox 93 10/31/23 12:27 Laboratory Results - last 24 hr 10/30/23 10/30/23 10/30/23 15:07 18:18 20:05 WBC RBC Hgb Hct MCV MCH MCHC RDW Plt Count MPV VBG pH 7.35 7.45 H 7.45 H VBG pCO2 48 46 48 VBG pO2 103 81 91 VBG HCO3 26 32 H 33 H VBG Total CO2 24 28 30 H VBG O2 Saturation 98 97 98 VBG Base Excess 1 8 H 9 H Sodium 144 146 H 147 H Potassium 3.6 3.3 L 3.1 L Chloride 109 H 108 H 108 H Carbon Dioxide 27.1 32.4 H 33.2 H Anion Gap 7.9 5.6 5.8 BUN 10 10 9 Creatinine 0.7 0.7 0.7 Est GFR (CKD-EPI 2020) 117.25 117.25 117.25 Glucose 105 119 H 115 H Calcium 8.1 L 8.1 L 8.2 L Phosphorus Magnesium Total Bilirubin AST ALT Alkaline Phosphatase Total Protein Albumin 10/30/23 10/31/23 10/31/23 22:05 00:06 02:15 WBC RBC Hgb Hct MCV MCH MCHC RDW Plt Count MPV VBG pH 7.43 H 7.46 H 7.50 H VBG pCO2 47 49 45 VBG pO2 112 76 102 VBG HCO3 32 H 35 H 35 H VBG Total CO2 33 H 31 H 31 H VBG O2 Saturation 98 96 99 VBG Base Excess 7 H 11 H 12 H Sodium 146 H 145 144 Potassium 3.4 L 3.3 L 3.3 L Chloride 108 H 106 105 Carbon Dioxide 34.5 H 35.5 H 35.4 H Anion Gap 3.5 3.5 3.6 BUN 9 9 10 Creatinine 0.8 0.7 0.8 Est GFR (CKD-EPI 2020) 112.61 117.25 112.61 Glucose 108 H 89 94 Calcium 8.1 L 7.9 L 7.9 L Phosphorus Magnesium Total Bilirubin AST ALT Alkaline Phosphatase Total Protein Albumin 10/31/23 10/31/23 10/31/23 04:12 04:49 06:40 WBC 9.07 RBC 3.97 L Hgb 12.2 L Hct 37.2 L MCV 94 D MCH 30.7 MCHC 32.8 RDW 14.4 H Plt Count 268 MPV 8.7 VBG pH 7.50 H 7.48 H VBG pCO2 45 45 VBG pO2 86 74 VBG HCO3 35 H 34 H VBG Total CO2 31 H 30 H VBG O2 Saturation 97 96 VBG Base Excess 12 H 11 H Sodium 144 143 Potassium 3.3 L 3.3 L Chloride 105 104 Carbon Dioxide 35.7 H 34.2 H Anion Gap 3.3 4.8 BUN 10 9 Creatinine 0.9 1.0 Est GFR (CKD-EPI 2020) 108.68 95.77 Glucose 96 106 Calcium 8.0 L 7.9 L Phosphorus 3.1 Magnesium 2.3 Total Bilirubin 0.62 AST 22 ALT 24 Alkaline Phosphatase 89 Total Protein 6.2 L Albumin 3.1 L 10/31/23 10/31/23 10/31/23 09:55 11:55 13:02 WBC RBC Hgb Hct MCV MCH MCHC RDW Plt Count MPV VBG pH 7.42 H 7.39 7.40 VBG pCO2 50 53 H 51 VBG pO2 46 34 39 VBG HCO3 32 H 33 H 31 H VBG Total CO2 29 29 28 VBG O2 Saturation 82 63 74 VBG Base Excess 8 H 8 H 7 H Sodium 143 141 Potassium 4.0 4.1 Chloride 104 104 Carbon Dioxide 32.3 H 33.6 H Anion Gap 6.7 3.4 BUN 9 8 Creatinine 1.1 1.0 Est GFR (CKD-EPI 2020) 85.42 95.77 Glucose 109 H 127 H Calcium 8.1 L 8.1 L Phosphorus Magnesium Total Bilirubin AST ALT Alkaline Phosphatase Total Protein Albumin PAWSS Have you Been Recently Intoxicated or Drunk Within the Last 30 days?: Unable to Obtain Have you Ever Experienced Previous Episodes of Alcohol Withdrawal?: Yes Have you ever Experienced Withdrawal Seizures?: Unable to Obtain Have you ever Experienced Delirium Tremens(DT)s?: Unable to Obtain Have you ever undergone Alcohol Rehabilitation Treatment (i.e, inpt ot outpatient treatment programs)?: Unable to Obtain Have you ever Experienced Blackouts?: Unable to Obtain Have you ever Combined Alcohol with other Downers within the last 90 days?: Unable to Obtain Have you ever Combined Alcohol with any other Substance of Abuse during the last 90 days?: Unable to Obtain Positive Blood Alcohol level on Presentation? [PCS.BAL]: Unable to Obtain Evidence of Increased Autonomic Activity (i.e. HR>120, tremor, sweating, agitation, nausea)?: Unable to Obtain Result: 1 Time Spent with Patient Time Spent with Patient: >50 minutes Time was spent: preparing to see the patient(eg.review tests), obtaining and/or reviewing separately otained hiistory, ordering medications,tests, procedures, referring, communicating with other health respiratory care program director, indepentently interpreting results and care coordination
--- NOTE | 2023-10-31 14:54 | NUR.NOTE ---
entered patient chart for continuity of care with EMS for education Nursing Note:
[2023-10-31 15:01] LABS: BE (Venous) 5 mmol/L (-2-3); HCO3 (Venous) 29 mmol/L (23-28); O2 Sat (Venous) 91 %; TCO2 (Venous) 26 mmol/L (24-29); pCO2 (Venous) 44 mmHg (41-51); pH (Venous) 7.43 (7.31-7.41); pO2 (Venous) 58 mmHg
--- NOTE | 2023-10-31 16:45 | RT.EKG_ITS ---
APPROVED REPORT Exam: Resting ECG Reason for Exam: TCA overdose Patient Location: I HR:75 bpm ECG Measurements Heart Rate 75 AXIS DC 142 P 15 QRSd 104 QRS 51 QT 418 T 37 QTc 467 Conclusion Sinus rhythm...normal P axis, V-rate 50- 99 Normal Electrocardiogram
[2023-10-31 17:04] LABS: BE (Venous) 4 mmol/L (-2-3); HCO3 (Venous) 28 mmol/L (23-28); pCO2 (Venous) 41 mmHg (41-51); pH (Venous) 7.44 (7.31-7.41); pO2 (Venous) 159 mmHg
[2023-10-31 17:08] LABS: O2 Sat (Venous) > 99 %
[2023-10-31 17:17] LABS: Anion Gap 5.7 mmol/L (3-11); BUN 7 mg/dL (7-18); CO2 28.3 mmol/L (21.0-32.0); CREATININE 0.9 mg/dL (0.70-1.30); Chloride 105 mmol/L (98-107); Estimated GFR 108.68 (mL/min/1.73m2); Glucose 137 mg/dL (74-106); Potassium 4.2 mmol/L (3.5-5.1); Sodium 139 mmol/L (136-145)
[2023-10-31] MEDS: PROPOFOL 1,000 MG/100 ML BTL 23.34 MG IV ×2 (19:01→23:19)
[2023-10-31 19:13] LABS: BE (Venous) 4 mmol/L (-2-3); HCO3 (Venous) 28 mmol/L (23-28); O2 Sat (Venous) 95 %; TCO2 (Venous) 25 mmol/L (24-29); pCO2 (Venous) 43 mmHg (41-51); pH (Venous) 7.43 (7.31-7.41); pO2 (Venous) 71 mmHg
--- NOTE | 2023-10-31 20:45 | RT.EKG_ITS ---
APPROVED REPORT Exam: Resting ECG Reason for Exam: TCA overdose Patient Location: I HR:87 bpm ECG Measurements Heart Rate 87 AXIS IA 149 P 64 QRSd 106 QRS 59 QT 407 T 20 QTc 490 Conclusion Sinus rhythm...normal P axis, V-rate 50- 99 Normal Electrocardiogram
[2023-10-31 21:15] LABS: BE (Venous) 4 mmol/L (-2-3); HCO3 (Venous) 29 mmol/L (23-28); O2 Sat (Venous) 78 %; TCO2 (Venous) 26 mmol/L (24-29); pCO2 (Venous) 47 mmHg (41-51); pO2 (Venous) 41 mmHg
[2023-10-31 21:30] LABS: Anion Gap 5.1 mmol/L (3-11); BUN 6 mg/dL (7-18); CO2 29.9 mmol/L (21.0-32.0); CREATININE 0.9 mg/dL (0.70-1.30); Calcium 8.1 mg/dL (8.5-10.1); Chloride 106 mmol/L (98-107); Estimated GFR 108.68 (mL/min/1.73m2); Glucose 109 mg/dL (74-106); Potassium 4.3 mmol/L (3.5-5.1); Sodium 141 mmol/L (136-145)
[2023-10-31 23:04] LABS: BE (Venous) 4 mmol/L (-2-3); HCO3 (Venous) 30 mmol/L (23-28); O2 Sat (Venous) 65 %; TCO2 (Venous) 27 mmol/L (24-29); pCO2 (Venous) 54 mmHg (41-51); pH (Venous) 7.35 (7.31-7.41); pO2 (Venous) 35 mmHg
[2023-11-01] VITALS (41 sets, daily range): BP systolic 115–169; BP diastolic 63–116; PULSE 74–91; RESP 14–28; TEMP 36.7–38.1; O2SAT 90–97
--- NOTE | 2023-11-01 | DI.RAD_ITS ---
Exam(s) XR PORTABLE CHEST AP EXAM: XR PORTABLE CHEST AP CLINICAL HISTORY: cough, fever, recent extubation TECHNIQUE: 2D digital imaging was performed. COMPARISON: CT CT CHEST/ABD/PEL W from 10/30/2023 FINDINGS: Exam limited by poor pulmonary inflation. Multiple leads overlie the chest. LUNGS: Grossly clear. No pleural abnormality seen. HEART: Normal size. AORTA: Normal diameter. BONES: Hardware lower cervical spine. Degenerative changes of both SI joints. Spine mainly obscured . Soft tissues: Unremarkable. IMPRESSION: Limited exam. No acute findings. DATA REPOSITORY: RADIATION DOSE DELIVERED:
[2023-11-01] MEDS: PROPOFOL 1,000 MG/100 ML BTL 23.34 MG IV (03:38)
[2023-11-01 06:06] LABS: Abs Immature Grans 0.07 10^3/uL (0.0-0.06); Absolute Basophil Count 0.03 10^3/uL (0.0-0.2); Absolute Eosinophil Count 0.03 10^3/uL (0.0-0.7); Absolute Lymphocyte Count 0.73 10^3/uL (1.2-3.4); Absolute Monocyte Count 0.73 10^3/uL (0.1-0.8); Basophils % 0.2 %; Eosinophils % 0.2 %; HCT 40.3 % (40.0-50.0); HGB 13.1 g/dL (13.5-17.5); Immature Grans % 0.5 %; MCH 30.8 pg (27.0-33.0); MCHC 32.5 % (32.0-36.0); MCV 95 fL (80-95); MPV 8.8 fL (8.0-11.0); Neutrophils % 89.1 %; Platelet Count 247 10^3/uL (130-400); RBC 4.25 10^6/uL (4.36-5.78); RDW 14.1 % (11.8-14.1); RDW-SD 48.8 fL; WBC 14.53 10^3/uL (4.4-10.8)
[2023-11-01 06:08] LABS: BE (Venous) 3 mmol/L (-2-3); HCO3 (Venous) 28 mmol/L (23-28); O2 Sat (Venous) 90 %; TCO2 (Venous) 25 mmol/L (24-29); pCO2 (Venous) 46 mmHg (41-51); pH (Venous) 7.39 (7.31-7.41); pO2 (Venous) 56 mmHg
[2023-11-01 06:18] LABS: Absolute Neutrophil Count 12.95 10^3/uL (1.2-6.7)
[2023-11-01 06:40] LABS: ALT 24 U/L (16-63); AST 29 U/L (15-37); Alkaline Phosphatase 96 U/L (46-116); Anion Gap 8.3 mmol/L (3-11); BUN 5 mg/dL (7-18); Bilirubin, Total 0.74 mg/dL (0.2-1.0); CO2 27.7 mmol/L (21.0-32.0); CREATININE 0.9 mg/dL (0.70-1.30); Calcium 8.5 mg/dL (8.5-10.1); Chloride 103 mmol/L (98-107); Estimated GFR 108.68 (mL/min/1.73m2); Glucose 131 mg/dL (74-106); Potassium 4.3 mmol/L (3.5-5.1); Sodium 139 mmol/L (136-145); Total Protein 6.8 g/dL (6.4-8.2)
[2023-11-01] MEDS: POTASSIUM CHLORIDE/D5-0.45NACL 1,000 ML 100 MEQ IV ×2 (06:45→16:26)
[2023-11-01] MEDS: dexmedeTOMidine IN 0.9 % NACL 400 MCG/100 ML BTL 11.67 MCG IV (08:02)
[2023-11-01 09:20] LABS: BE (Venous) 2 mmol/L (-2-3); HCO3 (Venous) 27 mmol/L (23-28); O2 Sat (Venous) 85 %; TCO2 (Venous) 24 mmol/L (24-29); pCO2 (Venous) 40 mmHg (41-51); pH (Venous) 7.43 (7.31-7.41); pO2 (Venous) 47 mmHg
[2023-11-01 09:32] LABS: Anion Gap 6.3 mmol/L (3-11); BUN 3 mg/dL (7-18); CO2 27.7 mmol/L (21.0-32.0); CREATININE 0.9 mg/dL (0.70-1.30); Calcium 8.4 mg/dL (8.5-10.1); Chloride 102 mmol/L (98-107); Estimated GFR 108.68 (mL/min/1.73m2); Glucose 152 mg/dL (74-106); Potassium 4.3 mmol/L (3.5-5.1); Sodium 136 mmol/L (136-145)
--- NOTE | 2023-11-01 09:35 | W.PM.PROGNOT ---
Date of Service Date of service: 11/01/23 Time of Service: 09:35 Assessment and Plan Assessment and plan (1) TCA (tricyclic antidepressant) overdose of undetermined intent: Status: Acute Assessment and plan: -Patient initially found unresponsive -patient's girlfriend reported that he was found next to empty bottle of cyclobenzaprine at midnight, and an empty bottle of amitriptyline based on what it was last filled usual supply it was at max 1400 mg, history and EKGs consistent with tricyclic antidepressant overdose. -Following with poison control: -Patient was given 2 amps of bicarb in the emergency department, then bicarbonate drip with goal pH 7.4-7.5, now off -Per poison control can discontinue pH/BMP monitoring -QRS and QTc has been normalizing -Patient extubated 10/31 AM -Only sedation now is precedex, titrate off, can discontinue restraints (2) Long QT interval: Status: Acute Assessment and plan: - Related to TCAs in addition to methadone, low K+/Mg+ replaced. Improving. Off propofol now, resuming methadone. If the next EKGlooks okay we can stop regular EKGs. (3) Depression: Status: Chronic Assessment and plan: - Resume home fluoxetine. He is also treated with pregabalin (pain?) and stimulant for ADHD, wait on these. (4) Attempted suicide: Status: Acute Assessment and plan: - Patient will need psychiatric consult once he is awake and appropriate to consider placement. He is still a bit sedated now, but may be clear by this afternoon or tomorrow morning. (5) Peptic ulcer disease: Assessment and plan: Concern for blood tinged fluid in NGT 10/30. Borderline anemia, but stable. No further concern. Continue PPI, but do not withhold DVT prophylaxis. (6) Fever: Status: Acute Assessment and plan: Low grade, WBC increased, sputum production. With intubation, at risk for pneumonia. With wheat, at risk for UTI. Get u/a and CXR, treat if suggests pneumonia or UTI. 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 (7) Tobacco abuse: Status: Acute Assessment and plan: NRT patch now (8) Opioid dependence: Status: Acute Assessment and plan: resuming oral methadone this morning. (9) Neck pain, chronic: Status: Acute Assessment and plan: He wears a brace off/on as outpatien since neck surgery. Medical indication for this is not clear, sounds like just for comfort. He is neurologically intact so removed this morning. He would likely benefit from PT for this, though not urgent inpatient. (10) DVT prophylaxis: Status: Acute Assessment and plan: enoxaparin Subjective Subjective Patient reports: denies nausea or shortness of breath Interval history since last seen: 24hr: Bicarb drip stopped per poison control Rapid response when patient agitated during routine care, resolved with uptitration of propofol Fever to 38.1 overnight Extubated this morning, some thick sputum in tube Arron states throat is sore. Neck is stiff, would like to remove the brace. He states he can feel his hands and feet, move them normally. Exam Narrative Exam Narrative: Sleepy (still on precedex drip) but responds appropriately, knows he is in the hospital, speaks in soft raspy voice. No acute distress. Pupils equal and reactive bilaterally. Heart regular rate rhythm, no murmur. Lungs with course breath sounds anteriorly, but good air movement, no wheeze or rales. abdomen soft, nontender, nondistended. Ext no cyanosis or edema. Neurologically sensation intact in 4 ext to light touch, symmetric strength in 4 ext. Skin with superficial linear scratches across abdomen and legs, no open wounds. Objective Last Vital Signs Temp 37.7 C H 11/01/23 03:45 Pulse 74 11/01/23 08:01 Resp 26 H 11/01/23 08:19 BP 140/87 11/01/23 08:01 Pulse Ox 95 11/01/23 08:19 Laboratory Results - last 24 hr 10/31/23 10/31/23 10/31/23 09:55 11:55 13:02 WBC RBC Hgb Hct MCV MCH MCHC RDW Plt Count MPV Immature Gran % Neutrophils % Lymphocytes % Monocytes % Eosinophils % Basophils % Nucleated RBC % Absolute Neutrophils Absolute Lymphocytes Absolute Monocytes Absolute Eosinophils Absolute Basophils VBG pH 7.42 H 7.39 7.40 VBG pCO2 50 53 H 51 VBG pO2 46 34 39 VBG HCO3 32 H 33 H 31 H VBG Total CO2 29 29 28 VBG O2 Saturation 82 63 74 VBG Base Excess 8 H 8 H 7 H Sodium 143 141 Potassium 4.0 4.1 Chloride 104 104 Carbon Dioxide 32.3 H 33.6 H Anion Gap 6.7 3.4 BUN 9 8 Creatinine 1.1 1.0 Est GFR (CKD-EPI 2020) 85.42 95.77 Glucose 109 H 127 H Calcium 8.1 L 8.1 L Total Bilirubin AST ALT Alkaline Phosphatase Total Protein Albumin 10/31/23 10/31/23 10/31/23 14:50 16:57 19:00 WBC RBC Hgb Hct MCV MCH MCHC RDW Plt Count MPV Immature Gran % Neutrophils % Lymphocytes % Monocytes % Eosinophils % Basophils % Nucleated RBC % Absolute Neutrophils Absolute Lymphocytes Absolute Monocytes Absolute Eosinophils Absolute Basophils VBG pH 7.43 H 7.44 H 7.43 H VBG pCO2 44 41 43 VBG pO2 58 159 71 VBG HCO3 29 H 28 28 VBG Total CO2 26 25 VBG O2 Saturation 91 > 99 95 VBG Base Excess 5 H 4 H 4 H Sodium 139 Potassium 4.2 Chloride 105 Carbon Dioxide 28.3 Anion Gap 5.7 BUN 7 Creatinine 0.9 Est GFR (CKD-EPI 2020) 108.68 Glucose 137 H Calcium 8.0 L Total Bilirubin AST ALT Alkaline Phosphatase Total Protein Albumin 10/31/23 10/31/23 11/01/23 21:07 22:57 05:52 WBC 14.53 H RBC 4.25 L Hgb 13.1 L Hct 40.3 MCV 95 MCH 30.8 MCHC 32.5 RDW 14.1 Plt Count 247 MPV 8.8 Immature Gran % 0.5 Neutrophils % 89.1 Lymphocytes % 5.0 Monocytes % 5.0 Eosinophils % 0.2 Basophils % 0.2 Nucleated RBC % 0.0 Absolute Neutrophils 12.95 H Absolute Lymphocytes 0.73 L Absolute Monocytes 0.73 Absolute Eosinophils 0.03 Absolute Basophils 0.03 VBG pH 7.40 7.35 7.39 VBG pCO2 47 54 H 46 VBG pO2 41 35 56 VBG HCO3 29 H 30 H 28 VBG Total CO2 26 27 25 VBG O2 Saturation 78 65 90 VBG Base Excess 4 H 4 H 3 Sodium 141 139 Potassium 4.3 4.3 Chloride 106 103 Carbon Dioxide 29.9 27.7 Anion Gap 5.1 8.3 BUN 6 L 5 L Creatinine 0.9 0.9 Est GFR (CKD-EPI 2020) 108.68 108.68 Glucose 109 H 131 H Calcium 8.1 L 8.5 Total Bilirubin 0.74 AST 29 ALT 24 Alkaline Phosphatase 96 Total Protein 6.8 Albumin 3.0 L 11/01/23 11/01/23 11/01/23 09:10 12:45 16:45 WBC RBC Hgb Hct MCV MCH MCHC RDW Plt Count MPV Immature Gran % Neutrophils % Lymphocytes % Monocytes % Eosinophils % Basophils % Nucleated RBC % Absolute Neutrophils Absolute Lymphocytes Absolute Monocytes Absolute Eosinophils Absolute Basophils VBG pH 7.43 H Cancelled Cancelled VBG pCO2 40 L Cancelled Cancelled VBG pO2 47 Cancelled Cancelled VBG HCO3 27 Cancelled Cancelled VBG Total CO2 24 Cancelled Cancelled VBG O2 Saturation 85 Cancelled Cancelled VBG Base Excess 2 Cancelled Cancelled Sodium Cancelled Cancelled Potassium Cancelled Cancelled Chloride Cancelled Cancelled Carbon Dioxide Cancelled Cancelled Anion Gap Cancelled Cancelled BUN Cancelled Cancelled Creatinine Cancelled Cancelled Est GFR (CKD-EPI 2020) Cancelled Cancelled Glucose Cancelled Cancelled Calcium Cancelled Cancelled Total Bilirubin AST ALT Alkaline Phosphatase Total Protein Albumin 11/01/23 20:45 WBC RBC Hgb Hct MCV MCH MCHC RDW Plt Count MPV Immature Gran % Neutrophils % Lymphocytes % Monocytes % Eosinophils % Basophils % Nucleated RBC % Absolute Neutrophils Absolute Lymphocytes Absolute Monocytes Absolute Eosinophils Absolute Basophils VBG pH Cancelled VBG pCO2 Cancelled VBG pO2 Cancelled VBG HCO3 Cancelled VBG Total CO2 Cancelled VBG O2 Saturation Cancelled VBG Base Excess Cancelled Sodium Cancelled Potassium Cancelled Chloride Cancelled Carbon Dioxide Cancelled Anion Gap Cancelled BUN Cancelled Creatinine Cancelled Est GFR (CKD-EPI 2020) Cancelled Glucose Cancelled Calcium Cancelled Total Bilirubin AST ALT Alkaline Phosphatase Total Protein Albumin PAWSS Have you Been Recently Intoxicated or Drunk Within the Last 30 days?: Unable to Obtain Have you Ever Experienced Previous Episodes of Alcohol Withdrawal?: Yes Have you ever Experienced Withdrawal Seizures?: Unable to Obtain Have you ever Experienced Delirium Tremens(DT)s?: Unable to Obtain Have you ever undergone Alcohol Rehabilitation Treatment (i.e, inpt ot outpatient treatment programs)?: Unable to Obtain Have you ever Experienced Blackouts?: Unable to Obtain Have you ever Combined Alcohol with other Downers within the last 90 days?: Unable to Obtain Have you ever Combined Alcohol with any other Substance of Abuse during the last 90 days?: Unable to Obtain Positive Blood Alcohol level on Presentation? [PCS.BAL]: Unable to Obtain Evidence of Increased Autonomic Activity (i.e. HR>120, tremor, sweating, agitation, nausea)?: Unable to Obtain Result: 1 Time Spent with Patient Time Spent with Patient: >50 minutes Time was spent: preparing to see the patient(eg.review tests), obtaining and/or reviewing separately otained hiistory, ordering medications,tests, procedures, referring, communicating with other health care transitions manager, indepentently interpreting results and care coordination
[2023-11-01] MEDS: Methadone Liquid 10 MG/ML 125 MG PO (09:47)
[2023-11-01] MEDS: Acetaminophen Solution 650 MG/20.3 ML CUP PO ×3 (09:47→19:16)
[2023-11-01] MEDS: Normal Saline Flush 10 ML SYR IVP (09:48)
[2023-11-01] MEDS: Enoxaparin 40 MG/0.4 ML SYR SC (09:48)
[2023-11-01] MEDS: Pantoprazole 40 MG VIAL IVP (09:48)
[2023-11-01] MEDS: Nicotine 21 MG/24 HR PATCH TD (10:07)
--- NOTE | 2023-11-01 11:23 | DI.VRAD_ITS ---
PROCEDURE INFORMATION: Exam: XR Chest Exam date and time: 11/01/2023 10:27 AM Age: 43 years old Clinical indication: Other: Cough, fever, recent extubation TECHNIQUE: Imaging protocol: Radiologic exam of the chest. Views: 1 view. COMPARISON: CT CHEST/ABD/PEL W 10/30/2023 4:14 AM FINDINGS: Tubes, catheters and devices: There are electrocardiographic leads on the thorax. Lungs: Patchy interstitial changes in the medial portion of the left lower lobe consistent with residual atelectasis. No lobar consolidations. Pleural spaces: Unremarkable. No pleural effusion. No pneumothorax. Heart/Mediastinum: Unremarkable. No cardiomegaly. Bones/joints: Anterior plate fusion of the inferior cervical spine. IMPRESSION: Minimal interstitial changes left lung base likely from residual atelectasis. No lobar consolidations. Dictated and Authenticated by: Matt Santiago MD. Ordering:SUNITHA Crawford MD
--- NOTE | 2023-11-01 12:30 | RT.EKG_ITS ---
APPROVED REPORT Exam: Resting ECG Reason for Exam: TCA overdose Patient Location: I HR:89 bpm ECG Measurements Heart Rate 89 AXIS SD 153 P 64 QRSd 110 QRS 49 QT 391 T 36 QTc 476 Conclusion Sinus rhythm...normal P axis, V-rate 50- 99 Normal Electrocardiogram
--- NOTE | 2023-11-01 13:18 | CMSP_ITS ---
Date of service: 11/01/23 Time of Service: 13:18 Care Management Safety Plan Status Status: Interim Reason for Wait Reason for Wait: Assessment/Screening and Medical Clearance Safety Plan Safety Plan: Arron remains in the ICU for an intentional overdose, he was extubated this morning. He is being monitored closely by ICU staff and now [facility]. Once he is medically cleared, he will be assessed by [facility] for a mental health evaluation. If screener deems patient meets criteria for psychiatric stabilization CM will facilitate interdepartmental huddle with [facility] screener for safety planning considerations and meet with patient to review [facility] policy and safety plan, establish individual wishes for treatment and maintain patient rights. JORGE spoke with Crisis Screener who advised that if Arron requests to leave prior to [facility] screening-to notify [facility] who will screen patient as soon as possible. JORGE discussed with MD and RN who verbalized Arron would likely benefit from waiting to engage with [facility] until tomorrow as his voice is soft and raspy and he remains somewhat sedated and sleepy. In the interim; please note safety plan below to guide patient care while awaiti ng further assessment.? INTERIM SAFETY PLAN: 1. Will remain on suicide precautions and in hospital gown.? 2. Will remain in room under direct supervision of staff at all times provided by QUIN, COLLECTION SYSTEMS TECHNICIAN die machine operator. 3. May have paper cups, plates, finger foods as well as a cardboard spoon with which to eat meals. 4. Follow [facility] Management of the Admitted Behavioral Health Patient policy. 5. Comfort bath system or shower, if able. 6. No personal belongings. 7. Visitors allowed at RN discretion. 8. Incoming/Outgoing calls by [facility] cordless phone only at this time. 9. Due to INTERIM status, if patient wishes to leave [facility], staff will contact [facility] Crisis Screener ([phone]) and On-Call Correctional Medicine Physician ([phone]) as soon as possible. In the event of elopement, notify [facility] Police ([phone]). ? If deemed appropriate for inpatient psychiatric care, safety plan will be established with patient, and care team, to adhere to patient goals, identify restrictions based on behavioral status, address nutrition, and determine allowed personal belongings, tools for hygiene and personal care. As well plan will determine level of activity including ambulation, level of supervision, visitors, and determine privileges based on level of acuity, behaviors and level of engagement by patient.
[2023-11-01 15:37] LABS: Bilirubin Negative (Negative); Blood Trace-intact (Negative); Clarity Clear (Clear); Glucose Negative (Negative); Ketones Negative (Negative); Leukocyte Esterase Negative (Negative); Nitrite Negative (Negative); Urobilinogen 0.2 mg/dL (Up to 0.2)
[2023-11-01 15:47] LABS: Bacteria Negative HPF (Negative); C & S Indicated? No; Casts Negative LPF (Negative); Crystals Negative HPF (Negative); Epithelial Cells Rare HPF (Negative); Mucus Negative (Negative); WBC 0-2 HPF (0-5)
[2023-11-01] MEDS: Chloraseptic Spray 117 ML BTL MM (20:12)
[2023-11-02] VITALS (23 sets, daily range): BP systolic 118–170; BP diastolic 72–99; PULSE 67–123; RESP 13–27; TEMP 36.5–38.3; O2SAT 91–97
--- NOTE | 2023-11-02 | DI.RAD_ITS ---
Exam(s) XR CHEST 2V PA LATERAL EXAM: XR CHEST 2V PA LATERAL CLINICAL HISTORY: fever and cough persist, recent intubation TECHNIQUE: 2D digital imaging was performed. Two views. COMPARISON: CR,XR XR PORTABLE CHEST AP from 11/01/2023 FINDINGS: Lungs suboptimally inflated. HEART: Normal size. Aorta: Not dilated. PULMONARY VASCULATURE: Normal. MEDIASTINUM: Unremarkable. LUNGS: Left lower lobe infiltrate. Question patchy density at the right diaphragm. PLEURAL SPACE: No pleural effusion or pneumothorax. BONE:Unremarkable for age. SOFT TISSUES: Unremarkable. IMPRESSION: Left lower lobe pneumonia. Question of additional infiltrate at the right lung base. DATA REPOSITORY: RADIATION DOSE DELIVERED:
[2023-11-02] MEDS: Acetaminophen 325 MG TAB PO ×3 (00:45→22:22)
[2023-11-02] MEDS: POTASSIUM CHLORIDE/D5-0.45NACL 1,000 ML 100 MEQ IV (02:30)
[2023-11-02] MEDS: Chloraseptic Spray 117 ML BTL MM ×3 (04:13→13:25)
--- NOTE | 2023-11-02 06:00 | RT.EKG_ITS ---
APPROVED REPORT Exam: Resting ECG Reason for Exam: TCA overdose Patient Location: I HR:89 bpm ECG Measurements Heart Rate 89 AXIS OH 147 P 51 QRSd 108 QRS 39 QT 384 T 22 QTc 468 Conclusion Sinus rhythm...normal P axis, V-rate 50- 99 Borderline T wave Normal Electrocardiogram
[2023-11-02] MEDS: Acetaminophen Solution 650 MG/20.3 ML CUP PO ×2 (06:03→18:11)
[2023-11-02] MEDS: Normal Saline Flush 10 ML SYR IVP ×3 (06:04→19:00)
[2023-11-02 06:34] LABS: Abs Immature Grans 0.08 10^3/uL (0.0-0.06); Absolute Basophil Count 0.04 10^3/uL (0.0-0.2); Absolute Lymphocyte Count 1.38 10^3/uL (1.2-3.4); Absolute Monocyte Count 0.61 10^3/uL (0.1-0.8); Absolute Neutrophil Count 11.53 10^3/uL (1.2-6.7); Basophils % 0.3 %; Eosinophils % 1.4 %; HCT 38.2 % (40.0-50.0); HGB 12.6 g/dL (13.5-17.5); Immature Grans % 0.6 %; MCV 94 fL (80-95); MPV 9.4 fL (8.0-11.0); Monocytes % 4.4 %; Neutrophils % 83.3 %; Platelet Count 253 10^3/uL (130-400); RBC 4.06 10^6/uL (4.36-5.78); RDW 13.5 % (11.8-14.1); RDW-SD 46.5 fL; WBC 13.84 10^3/uL (4.4-10.8)
[2023-11-02 06:47] LABS: Absolute Eosinophil Count 0.19 10^3/uL (0.0-0.7)
[2023-11-02 06:50] LABS: Anion Gap 9.4 mmol/L (3-11); BUN 5 mg/dL (7-18); CO2 27.6 mmol/L (21.0-32.0); CREATININE 0.9 mg/dL (0.70-1.30); Calcium 8.4 mg/dL (8.5-10.1); Chloride 104 mmol/L (98-107); Estimated GFR 108.68 (mL/min/1.73m2); Glucose 111 mg/dL (74-106); Sodium 141 mmol/L (136-145)
[2023-11-02] MEDS: Pantoprazole 40 MG VIAL IVP (08:07)
[2023-11-02] MEDS: FLUoxetine 20 MG CAP 40 MG PO (08:08)
[2023-11-02] MEDS: Nicotine 21 MG/24 HR PATCH TD (08:08)
[2023-11-02] MEDS: Enoxaparin 40 MG/0.4 ML SYR SC (08:08)
[2023-11-02] MEDS: Amoxicillin 875/Clav. 125 TAB PO (08:54)
[2023-11-02] MEDS: Methadone Liquid 10 MG/ML 125 MG PO (08:55)
--- NOTE | 2023-11-02 09:13 | SP_ITS ---
Date of service: 11/02/23 Time of Service: 08:30 Subjective Clinical (Bedside) Swallow Evaluation Speech Language Pathology Referred by: Ty Mar Referral Type: Clinical Swallow Evaluation Reason for Referral/HPI: Arron Mcbride is a 43 yo male with history depression and polysubstance abuse who was brought to [facility] unresponsive and intubated on 10/30/23 secondary to suicide attempt. Arron was extubated the morning of 11/01/23 and initially reported significant sore throat and hoarseness. TUTORIAL LABORATORY SUPERVISOR consulted for evaluation of swallowing/voice. TUTORIAL LABORATORY SUPERVISOR IMPRESSIONS & RECOMMENDATIONS: Arron was seen for TUTORIAL LABORATORY SUPERVISOR evaluation this AM with breakfast with significant other present. They report his voice has returned to baseline as of this morning. He continues with 1-2/10 soreness in throat, which can increase to 3-4/10 while swallowing food. Drinking cold liquids/ice cream is more comfortable. He denies symptoms of food sticking. Oral mechanism examination and PO trials were largely unremarkable. Education provided to the patient re: rationale for sore throat symptoms post-extubation and recommendation to favor naturally soft/moist foods- add extra butter/jam to bread or toast, avoid crunchy foods like raw vegetables or chips for several days until soreness resolves and prioritize hydration. Patient and girlfriend verbalized comprehension of all education, patient states it's 'good to hear it's normal to feel this'. No further acute TUTORIAL LABORATORY SUPERVISOR needs identified at this time; symptoms appear to be resolving steadily. FURTHER TUTORIAL LABORATORY SUPERVISOR SERVICES: No further TUTORIAL LABORATORY SUPERVISOR services indicated Diet Recommendations: Regular Solids/Thin Liquids. Favor foods that are naturally moist/soft, add extra condiments/sauces. Examples of foods discussed with patient Pills whole with sip of water. SUBJECTIVE: Patient received alert/awake and agreeable to evaluation Pain Reported? 1-2/10 throat soreness at rest. Increases to 3-4/10 with swallowing food Baseline Swallow Function: Patient denies swallowing difficulty prior to admission and eats a regular diet at baseline. PO Trials Assessed: IDDSI 0 Thin Liquids IDDSI 7 Regular Solid- Egg/sausage sandwich Oral Mechanism Examination: WFL Cranial Nerve Assessment: CN V ? Trigeminal Facial Sensation WNL Jaw Strength/ROM WNL ?WNL CN VII- Facial WNL labial ROM, strength, coordination. WNL lingual sensation WNL CN IX ? Glossopharyngeal WNL palatal elevation with phonation. No evidence of nasal emissions WNL CN X ? Vagus WNL Vocal quality and volume. Strong/sharp volitional cough WNL CX XII ? Hypoglossal WNL lingual ROM, strength, coordination WNL Oral Phase Findings: WFL Pharyngeal Phase Findings: WFL hyolaryngeal movement/swallow timing. No overt s/s dysphagia ? [place] Swallow Protocol Results: PASS ASSESSMENT: Further TUTORIAL LABORATORY SUPERVISOR Services not indicated Recommendation at Discharge: N/A Suggested Referrals: N/A Recommended Procedures: N/A Recommendations: ? Standard precautions: -Upright for all PO intake -Small bites/sips -Chew thoroughly before swallowing Level of Assistance/Supervision: Independent Education Provided to: Patient, Family, Nursing Topics Addressed: TUTORIAL LABORATORY SUPERVISOR findings, rationale for symptoms, recommendations for foods to favor/avoid PLAN:Eval only TUTORIAL LABORATORY SUPERVISOR CPT Code: 55221 Clinical Swallowing Evaluation TOTAL TIME: 20 Minutes ([id number])
--- NOTE | 2023-11-02 09:21 | PGE_ITS ---
Date of Service Date of service: 11/02/23 Time of Service: 09: Assessment and Plan Assessment and plan (1) TCA (tricyclic antidepressant) overdose of undetermined intent: Status: Acute Assessment and plan: -Patient initially found unresponsive -patient's girlfriend reported that he was found next to empty bottle of cyclobenzaprine at midnight, and an empty bottle of amitriptyline based on what it was last filled usual supply it was at max 1400 mg, history and EKGs consistent with tricyclic antidepressant overdose. -Managed per poison control guidance: -Patient was given 2 amps of bicarb in the emergency department, then bicarbonate drip with goal pH 7.4-7.5, off 10/30. -Discontinued pH/BMP monitoring 10/31 -QRS and QTc have normalized, EKG this morning normal, can stop serial EKGs -Patient extubated 10/31 AM -Off sedation since 10/31 AM. -Now medically clear for mental health evaluation for psychiatric placement. (2) Depression: Status: Chronic Assessment and plan: - Admitted after suicide attempt as above. - Resumed home fluoxetine 10/31. Further management per psychiatry. - He is also treated with pregabalin (pain?) and stimulant for ADHD, wait on these. (3) Peptic ulcer disease: Assessment and plan: Concern for blood tinged fluid in NGT 10/30. Borderline anemia, but stable. No further concern about blood loss since. Continue PPI, but do not withhold DVT prophylaxis. (4) Fever: Status: Acute Assessment and plan: Low grade, WBC increased, sputum production. With intubation, at risk for pneumonia, but CXR just showed atelectasis. IS and acapella. Aguilera out, u/a not c/w infection. His throat is sore but not c/w strep. He does have signs of sinus infection and left otitis media, will start amox/clav (5) Tobacco abuse: Status: Acute Assessment and plan: NRT patch now (6) Opioid dependence: Status: Acute Assessment and plan: resuming oral methadone 10/31 per ELDON. (7) Neck pain, chronic: Status: Acute Assessment and plan: He wears a brace off/on as outpatien since neck surgery about 6-8months ago at [facility]. Medical indication for this is not clear, sounds like just for comfort. He is neurologically intact, though some general arm weakness. He would likely benefit from PT for this, consult placed. (8) DVT prophylaxis: Status: Acute Assessment and plan: enoxaparin Subjective Subjective Patient reports: voiding w/o difficulty and fever (38.0 Tm overnight, getting acetaminophen); denies diarrhea, nausea or vomiting Interval history since last seen: Feeling better. His arms are still weak, but this is improving. He had a headache and left ear pain and pressure. He is coughing up yellow sputum. He feels like his breathing is a little tight, would like to use his inhaler. He would like to eat real food. Throat still hurts, but getting better. Exam Narrative Exam Narrative: Much more alert, fully oriented, voice still hoarse but much more clear. Head atraumatic, some frontal and maxillary sinus tenderness, left TM red and opaque, right normal. OP mildly red but no eduxdate or tonsilar enlargement. No cervical LAD. Heart regular rate rhythm, no murmur. Lungs clear to ascultation bilaterally, less course, no wheeze or rales. abdomen soft, nontender, non distended. Ext no cyanosis or edema. Neurologically sensation intact in 4 ext to light touch, symmetric strength in 4 ext. Skin with superficial linear scratches across abdomen and legs, no open wounds. Objective Last Vital Signs Temp 38.0 C H 11/02/23 08:28 Pulse 86 11/02/23 06:25 Resp 26 H 11/02/23 08:28 BP 129/86 11/02/23 08:28 Pulse Ox 94 11/02/23 08:28 Laboratory Results - last 24 hr 11/01/23 11/01/23 11/01/23 09:10 12:45 15:15 WBC RBC Hgb Hct MCV MCH MCHC RDW Plt Count MPV Immature Gran % Neutrophils % Lymphocytes % Monocytes % Eosinophils % Basophils % Nucleated RBC % Absolute Neutrophils Absolute Lymphocytes Absolute Monocytes Absolute Eosinophils Absolute Basophils VBG pH Cancelled VBG pCO2 Cancelled VBG pO2 Cancelled VBG HCO3 Cancelled VBG Total CO2 Cancelled VBG O2 Saturation Cancelled VBG Base Excess Cancelled Sodium 136 Cancelled Potassium 4.3 Cancelled Chloride 102 Cancelled Carbon Dioxide 27.7 Cancelled Anion Gap 6.3 Cancelled BUN 3 L Cancelled Creatinine 0.9 Cancelled Est GFR (CKD-EPI 2020) 108.68 Cancelled Glucose 152 H Cancelled Calcium 8.4 L Cancelled Urine Color Yellow Urine Clarity Clear Urine pH 7.0 Ur Specific [place] 1.020 Urine Protein Negative Urine Ketones Negative Urine Blood Trace-intact H Urine Nitrite Negative Urine Bilirubin Negative Urine Urobilinogen 0.2 Ur Leukocyte Esterase Negative Urine RBC 3-5 H Urine WBC 0-2 Ur Epithelial Cells Rare Urine Crystals Negative Urine Bacteria Negative Urine Casts Negative Urine Mucus Negative Ur Culture Indicated? No Urine Glucose Negative 11/01/23 11/01/23 11/02/23 16:45 20:45 05:40 WBC 13.84 H RBC 4.06 L Hgb 12.6 L Hct 38.2 L MCV 94 MCH 31.0 MCHC 33.0 RDW 13.5 Plt Count 253 MPV 9.4 Immature Gran % 0.6 Neutrophils % 83.3 Lymphocytes % 10.0 Monocytes % 4.4 Eosinophils % 1.4 Basophils % 0.3 Nucleated RBC % 0.0 Absolute Neutrophils 11.53 H Absolute Lymphocytes 1.38 Absolute Monocytes 0.61 Absolute Eosinophils 0.19 Absolute Basophils 0.04 VBG pH Cancelled Cancelled VBG pCO2 Cancelled Cancelled VBG pO2 Cancelled Cancelled VBG HCO3 Cancelled Cancelled VBG Total CO2 Cancelled Cancelled VBG O2 Saturation Cancelled Cancelled VBG Base Excess Cancelled Cancelled Sodium Cancelled Cancelled 141 Potassium Cancelled Cancelled 4.0 Chloride Cancelled Cancelled 104 Carbon Dioxide Cancelled Cancelled 27.6 Anion Gap Cancelled Cancelled 9.4 BUN Cancelled Cancelled 5 L Creatinine Cancelled Cancelled 0.9 Est GFR (CKD-EPI 2020) Cancelled Cancelled 108.68 Glucose Cancelled Cancelled 111 H Calcium Cancelled Cancelled 8.4 L Urine Color Urine Clarity Urine pH Ur Specific [place] Urine Protein Urine Ketones Urine Blood Urine Nitrite Urine Bilirubin Urine Urobilinogen Ur Leukocyte Esterase Urine RBC Urine WBC Ur Epithelial Cells Urine Crystals Urine Bacteria Urine Casts Urine Mucus Ur Culture Indicated? Urine Glucose Objective Narrative Objective Narrative: EKG: NSR, QRSd 108, QTc 468 PAWSS Have you Been Recently Intoxicated or Drunk Within the Last 30 days?: Unable to Obtain Have you Ever Experienced Previous Episodes of Alcohol Withdrawal?: Yes Have you ever Experienced Withdrawal Seizures?: Unable to Obtain Have you ever Experienced Delirium Tremens(DT)s?: Unable to Obtain Have you ever undergone Alcohol Rehabilitation Treatment (i.e, inpt ot outpatient treatment programs)?: Unable to Obtain Have you ever Experienced Blackouts?: Unable to Obtain Have you ever Combined Alcohol with other Downers within the last 90 days?: Unable to Obtain Have you ever Combined Alcohol with any other Substance of Abuse during the last 90 days?: Unable to Obtain Positive Blood Alcohol level on Presentation? [PCS.BAL]: Unable to Obtain Evidence of Increased Autonomic Activity (i.e. HR>120, tremor, sweating, agitation, nausea)?: Unable to Obtain Result: 1 Time Spent with Patient Time Spent with Patient: >50 minutes Time was spent: preparing to see the patient(eg.review tests), obtaining and/or reviewing separately otained hiistory, ordering medications,tests, procedures, referring, communicating with other health regular senior care provider, indepentently interpreting results, counseling the patient and care coordination
[2023-11-02] MEDS: Budesonide/Formoterol 160/4.5 6 GM 60 PUFF INH IH ×2 (09:29→20:13)
--- NOTE | 2023-11-02 09:30 | IN_ITS ---
PT Notes Visit Reasons: TCA Overdose Physical Therapy Inpatient Initial Evaluation Date:11/02/2023 Referring Doctor: Stephanie Don NP PT Orders: PT CONSULT: Eval/Treat. Precautions: Fall. Standard. ACtivity as tolerated. Patient Profile/Admitting Diagnosis: Jose Enrique is a 40-year-old male who presented to the ED on 06/12/2020 with abdominal pain, vomiting, and tremors. Patient is diagnosed with EtOH withdrawal delirium, constipation, colitis, superficial thrombophlebitis of the left greater saphenous vein, and choledocholelithiasis (resolved). PMHX: All Active Problems (Updated 10/30/23 @ 07:56 by Reynaldo Motta MD) Attempted suicide (Acute) Depression (Chronic) Long QT interval (Acute) TCA (tricyclic antidepressant) overdose of undetermined intent (Acute) Endotracheally intubated (Acute) Unresponsive (Acute) Tendinitis of long head of biceps brachii of left shoulder (Acute) subacromial corticosteroid injection 08/27/22 No-show for appointment (Acute) Tendonitis of long head of biceps brachii of right shoulder (Acute) subacromial corticosteroid injection 04/16/22 Arthritis of right acromioclavicular joint (Acute) MRSA carrier (Acute) Moderate recurrent major depression (Acute) ADHD (Acute) Mild persistent asthma in adult without complication (Acute) Hand dermatitis (Acute) Recurrent genital herpes (Acute) Tobacco abuse (Acute) Opioid dependence (Acute) Neck pain, chronic (Acute) Herniation of lumbar intervertebral disc with radiculopathy (Acute) Psoriasis (Chronic) Toothache (Acute) Deep venous thrombosis (Chronic) Abnormal LFTs (Acute) Common bile duct dilatation (Chronic) Constipation (Acute) Superficial thrombophlebitis (Acute) Alcohol withdrawal delirium (Acute) Discharge planning issues (Acute) DVT prophylaxis (Acute) Abdominal pain (Acute) Bronchitis (Acute) Vomiting (Acute) Acute epigastric pain (Acute) Dehydration (Acute) Medical History H/O acute pancreatitis H/O deep venous thrombosis Perforated ulcer Peptic ulcer disease Alcohol abuse quit in 2020 methadone from [facility] History (Updated 02/04/22 @ 11:53 by Nicole Muller RN, RN) History of esophagogastroduodenoscopy (EGD) H/O lumbar discectomy x2 12/24/21 C5-C7 ACDF S/P appendectomy Social History/Home Situation: Independent with all aspects of ADLs prior to admission. Equipment Owned/DME: None Subjective: Complained of hurting all over. Reported being spacey thorughout session adding that he has not had his anti depressant medication since he arrived to this hospital. Objective: General Observation: Supine in bed. Telemetry monitoring in place. Mental Status: Alert and oriented x4 Pain: as above ROM: Right Upper Extremity: Shoulder Flexion WFL. Shoulder abduction WFL. Elbow flexion WFL. Wrist flexion WFL. Opening and closing of hand WFL. Left Upper Extremity: Shoulder Flexion WFL. Shoulder abduction WFL. Elbow flexion WFL. Wrist flexion WFL. Opening and closing of hand WFL. Right Lower Extremity: Hip flexion WFL. Hip abduction WFL. Knee flexion WFL. Ankle dorsiflexion WFL. Ankle plantarflexion WFL. Left Lower Extremity: Hip flexion WFL. Hip abduction WFL. Knee flexion WFL. Ankle dorsiflexion WFL. Ankle plantarflexion WFL. Strength: Right Upper Extremity: Shoulder flexors 4-/5. Shoulder abductors 4-/5. Elbow flexors 4-/5. Elbow extensors 4-/5. Green Building Engineer strong. Left Upper Extremity: Shoulder flexors 4-/5. Shoulder abductors 4-/5. Elbow flexors 4-/5. Elbow extensors 4-/5. Green Building Engineer strong. Right Lower Extremity: Hip flexors 4-/5. Hip abductors 4-/5. Knee flexors 4-/5. Knee extensors 4-/5. Ankle dorsiflexors 4-/5. Ankle plantarflexors 4-/5. Left Lower Extremity: Hip flexors 4-/5. Hip abductors 4-/5. Knee flexors 4-/5. Knee extensors 4-/5. Ankle dorsiflexors 4-/5. Ankle plantarflexors 4-/5. Sensation: Intact as to pain and pressure on bilateral lower extremities. Bed Mobility/Transfers: Moderate cueing provided for use of B hands as needed for support, movement sequence, AD management, and posture to reduce fall risk and minimize pain report Rolling stand by assist Supine to sit stand by assist Sit to stand contact-guard assist Stand to sit contact-guard assist Bed to chair contact-guard assist Chair to bed contact-guard assist Gait: Guided patient through level surface ambulation of 100 feet using front-wheeled walker with full weightbearing requiring minimal assist with complaints of fatigue and weakness with decreased laura and mild ataxia. Mild path deviation noted. Moderate verbal cueing provided for walker management, posture, and directional changes. Balance: Static Sitting: Normal Dynamic Sitting: Normal Static Standing: Good Dynamic Standing: Good Special Tests: Mobility Limitations Standardized Measure [facility] AM-PAC 6 clicks Basic Mobility Inpatient Short Form: Raw Score: 18 CMS Score:47% deficit 4-stage Balance test: Unable to maintain feet together, semitandem, full tandem, and one-legged stance for 10 seconds indincating a risk for fals. Informed Consent/Education: Patient instructed in purpose of PT consult and plan of care. Agreeable to proceed with established PT POC to achieve personal goals. Assessment: Patient presents with clinical signs and symptoms consistent with current/admitting diagnoses that have resulted to mobility limitations, gait instability, generalized weakness, and overall ADL decline as demonstrated by the following impairment level findings: 1. Decreased strength to B UE/LE major muscle groups 2. Impaired sitting/standing balance 3. Impaired activity tolerance Impairments are contributing to the following functional limitations: 1. Decline in bed mobility skills 2. Decline in transfer skills 3. Difficulty with ambulation without assistive device and physical assistance 4. Increased completion time for mobility ADL performance 5. Increased risk for falls 6. Difficulty with managing steps alone safely Patient is assessed as a 20542 moderate complexity based on the following: History: 43-year-old male with past medical history as indicated above Examination: Demonstrable impairment in strength, balance, and mobility level with underlying impairments and functional limitations as exhibited above as well as deficit score of 47% utilizing the [facility] Mobility Inpatient Short Form Presentation: Evolving Decision Makin moderate complexity Goals: Goals X1 week 1. Supine-Sit independent 2. Sit-Supine independent 3. Sit-Stand independent with no AD 4. Stand-Sit independent with no AD 5. Bed-Chair independent with no AD 6. Chair-Bed independent with no AD 7. Independent gait on level surface with use of FWW for at least 300 feet without report of pain nor dyspnea 8. Independent with home exercise program 9. Good static and dynamic standing balance/tolerance Plan of Care/Treatment Plan: 1-2x/day, 7 days/week x 1 week. Plan of care has been reviewed with the ENGINE REPAIRER SERVICE providing the service under Physical Therapy direction. Initiate Physical Therapy intervention for strengthening, bed mobility, transfers, gait, stairs, balance training, use of assistive device. DISCHARGE RECOMMENDATIONS: [] Home with no services [] [] Home with services [specify] [] Home with outpatient PT [] [] SNF for continued rehabilitation [] [] Technology Professional Care [] [] SNF versus LTC based on ability to participate and progress [] [X] Short-term rehab vs PT based on progress towards goals TREATMENT CODE/TIME: 06556 x 20 minutes for 1 unit, 9753 0 x 7 minutes for 1 unit space (9: 30?10: 07). Thank you for the opportunity to participate in the care of this patient. Pallavi Lopez PT, DPT, CLT [facility] [place], [place]
--- NOTE | 2023-11-02 09:44 | PDOC.CMSAFE ---
Date of service: 11/02/23 Time of Service: 09:44 Care Management Safety Plan Status Status: Voluntary Reason for Wait Reason for Wait: Assessment/Screening Safety Plan Safety Plan: VOLUNTARY FOR INPATIENT PSYCHIATRIC STABILIZATION.? Patient is appropriate in all interactions since arriving at [facility]; Pt has demonstrated appropriate coping and communication skills, has articulated his or her needs and concerns and is fully engaged during staff interactions. Safety plan has been established with patient, and care team, to adhere to patient goals, identify restrictions based on behavioral status, address nutrition, and determine allowed personal belongings, tools for hygiene and personal care. Determine level of activity including ambulation, level of supervision, visitors, and determine privileges based on behaviors and level of engagement by pt. SAFETY PLAN: 1. Will remain on suicide precautions, in paper clothes 2. Will remain under direct supervision of one-on-one staff at all times provided by [employer]; QUIN, COMMUNICATIONS STRATEGIST information technology program manager. 3. May have paper cups, plates, finger foods as well as a cardboard spoon with which to eat meals. 4. Follow [facility] Management of the Admitted Behavioral Health Patient policy. 5. Comfort bath system, shower permitted with escort at RN discretion. 6. Personal belongings-soft items permitted at RN discretion. 7. Visitors- allowed at RN discretion; girlfrienherminia Montero has been visiting. 8. Activities: soft cart items approved per RN discretion. May walk around the unit with staff support. 9.? Bathroom privileges without limitations. 10. Phone: limited to cordless phone at RN discretion. Due to VOLUNTARY status, if patient wishes to leave [facility], staff will contact [facility] Crisis Screener ([phone]) and On-Call Irrigation Worker ([phone]) as soon as possible. In the event of elopement, notify [facility] Police ([phone]). Patient is currently voluntarily at [facility] and seeking inpatient admission when a bed becomes available. [facility] Frontline Grades 9 12 Tutor will continue seeking placement. Please contact the Test Case Developer Irrigation Worker ([phone]) and [facility] Grades 9 12 Tutor ([phone]) for any needed changes in the Safety Plan. Safety plan has been provided to interdepartmental care team.
--- NOTE | 2023-11-02 09:50 | PDOC.CMPRO ---
Date of service: 11/02/23 Time of Service: 09:50 Care Management Progress Note Progress Note Text Progress Note Text: Arron was sitting up in bed when CM met with him. His girlfriend Winston was in the room visiting. Arron stated that he was feeling better today, but still feels weak. He worked with PT today who recommended SNF vs home with PT. CM discussed this with Arron and he stated that he would prefer to return home with no services; Winston stated that she will be able to assist him. Winston inquired about a gas card to help support her going back and forth from [place] to [facility]; she contacted [facility], who was unsure if they would be able to provide the support. Arron met with [facility] today who cleared him and created a safety plan; he will follow up with them daily through Thursday, and he completed intake paperwork to meet with a therapist at [facility]. Per MD, he will likely be ready for discharge tomorrow. CM will continue to follow. Discharge Potential Discharge Needs: PCP F/U Appt Anticipated Barriers to Discharge: Other (screening by [facility] today) Patient/Family Education Needs: Review discharge instructions, discuss Ask Me Three Transportation: Private vehicle Plan: Arron will return home once medically cleared. His girlfriend will drive him home via private vehicle. He will follow up with his PCP and discharge plan of care. CM will continue to follow. SDOH(Care Management) Screening Will the Patient Participate in the Screening?: Unable to obtain
[2023-11-02] MEDS: Polyethylene Glycol 3350 17 GM PACKET PO (13:41)
[2023-11-02] MEDS: Doxycycline Hyclate 100 MG CAP PO ×2 (14:29→19:54)
--- NOTE | 2023-11-02 14:50 | PT.INTREAT ---
PT Notes Visit Reasons: TCA Overdose Physical Therapy Inpatient treatment Note Date:11/02/2023 Precautions: Fall. Standard. Activity as tolerated. On safety precautions for suicidal attempt. Subjective: Per Nurse Thu, patient is febrile. Patient agreeable to doing resistance exercises while sitting at edge of bed. Feels weak but willing to work with PT. Objective: General Observation: Supine in bed. Telemetry monitoring in place. Mental Status: Alert and oriented x4 Pain: as above Bed Mobility/Transfers: Moderate cueing provided for use of B hands as needed for support, movement sequence, AD management, and posture to reduce fall risk and minimize pain report Rolling stand by assist Supine to sit stand by assist Sit to stand contact-guard assist Stand to sit contact-guard assist THERA EX: Seated marches against green TB x 10 Chest expansion exercises with DBE x 3 Resisted knee flexion using green TB x 10 Chest expansion exercises with DBE x 3 Resisted clam shell exercises x 10 Chest expansion exercises with DBE x 3 Resisted feet eversion/external tibial torsion using green TB x 10 Chest expansion exercises with DBE x 3 Resisted D1 flexion R/L using green TB x 10 Chest expansion exercises with DBE x 3 Horzontal abd using green TB x 10 Assessment: Patient needed to be cued to go slow on each movement and work withing limits of pain. Chest expansion exercises with deep breathing were incorporated to promote imprved ventilatory fucntion and decrease effects of fatigue. Goals: Goals X1 week 1. Supine-Sit independent 2. Sit-Supine independent 3. Sit-Stand independent with no AD 4. Stand-Sit independent with no AD 5. Bed-Chair independent with no AD 6. Chair-Bed independent with no AD 7. Independent gait on level surface with use of FWW for at least 300 feet without report of pain nor dyspnea 8. Independent with home exercise program 9. Good static and dynamic standing balance/tolerance Plan of Care/Treatment Plan: 1-2x/day, 7 days/week x 1 week. Plan of care has been reviewed with the ASSOCIATE PROFESSOR OF PSYCHOLOGY providing the service under Physical Therapy direction. Initiate Physical Therapy intervention for strengthening, bed mobility, transfers, gait, stairs, balance training, use of assistive device. DISCHARGE RECOMMENDATIONS: [] Home with no services [] [] Home with services [specify] [] Home with outpatient PT [] [] SNF for continued rehabilitation [] [] Snf Care [] [] SNF versus LTC based on ability to participate and progress [] [X] Short-term rehab vs HH PT based on progress towards goals TREATMENT CODE/TIME: 98753 x 20 minutes for 1 unit space (14:50?15:10).
--- NOTE | 2023-11-02 16:26 | W.PC.ACHO ---
Registration Status: ADM IN Primary Language: Preferred Language: Yoruba ED Information & Data Chief Complaint OD/Poison 10/30/23 04:01 Chief Complaint OD/Poison 10/30/23 03:57 Triage Note Pt arrives via EMS s/p being 10/30/23 03:57 found unresponsive by family. Downtime unknown. Pt reportedly consumed ETOH and opioids (unknown kind). Two empty pill bottles found at the scene. Pt RSI in the field. Pt received 30 versed, 500 fent, 100 succ, 300 ketamine, Narcan x 4 (8 total), 500ml NS block captain. BG= 90. C-collar applied upon arrival. ET=25 @ teeth (in field). NG tube/[place] placed upon arrival. Medical / Surgical History H/O acute pancreatitis H/O deep venous thrombosis Perforated ulcer Peptic ulcer disease Alcohol abuse (Last Updated 02/04/22 @ 11:53 by Nicole Muller RN, RN) History of esophagogastroduodenoscopy (EGD) H/O lumbar discectomy S/P appendectomy Most Recent Vital Signs Temperature 38.0 C H 11/02/23 15:36 Temperature Source Temporal Artery Scan 11/02/23 15:36 Pulse 78 11/02/23 15:36 Pulse 87 11/02/23 15:24 Respiratory Rate 19 11/02/23 15:36 Respiratory Effort Normal, Non-Labored 11/02/23 15:36 Respiratory Depth Normal 11/02/23 15:36 Respiratory Pattern Normal 11/02/23 15:36 Blood Pressure 129/86 11/02/23 15:36 Blood Pressure Mean 100 11/02/23 15:36 Blood Pressure Position Supine 11/02/23 15:36 Pulse Oximetry 95 11/02/23 15:36 Respiratory End-tidal CO2 42 11/01/23 07:28 Oxygen Delivery Method Room Air 11/02/23 13:33 Oxygen Flow Rate 0 11/02/23 13:33 Fraction of Inspired Oxygen (FIO2) 21 11/01/23 08:19 End Tidal Co2 33 10/30/23 03:57 Pain Level 5 11/02/23 15:36 Comment blankets removed 10/31/23 06:15 Allergies clindamycin Allergy (Intermediate, Verified 10/30/23 04:36) Hives NSAIDS (Non-Steroidal Anti-Inflamma Adverse Reaction (Intermediate, Verified 10/30/23 04:36) perforated ulcer Active Medications Generic Name Dose Route Start Last Admin Trade Name Freq PRN Reason Stop Dose Admin Acetaminophen 0 mg 10/30/23 08:49 11/02/23 13:25 Acetaminophen 325 Mg Tab PO 650 mg Q4H PRN PRN Administration Acetaminophen 650 mg 11/01/23 09:34 11/02/23 06:03 Acetaminophen Solution 650 Mg/20.3 Ml Cup PO 650 mg Q4H PRN PRN Administration Budesonide/Formoterol Fumarate 2 puff 11/02/23 08:30 11/02/23 09:29 Budesonide/Formoterol 160/4.5 6 Gm 60 Puff Inh IH 2 puffs BID CESAR Administration Enoxaparin Sodium 40 mg 10/30/23 08:30 11/02/23 08:08 Enoxaparin 40 Mg/0.4 Ml Syr SC 40 mg Q24H CESAR Administration Fluoxetine HCl 40 mg 11/02/23 08:30 11/02/23 08:08 Fluoxetine 20 Mg Cap PO 40 mg DAILY CESAR Administration Methadone HCl 125 mg 11/02/23 08:30 11/02/23 08:55 Methadone Liquid 10 Mg/Ml PO 125 mg DAILY CESAR Administration Nicotine 21 mg 11/02/23 08:30 11/02/23 08:08 Nicotine 21 Mg/24 Hr Patch TD 21 mg DAILY CESAR Administration Pantoprazole Sodium 40 mg 10/30/23 08:30 11/02/23 08:07 Pantoprazole 40 Mg Vial IVP 40 mg Q24H CESAR Administration Phenol 117 ml 11/01/23 18:11 11/02/23 13:25 Chloraseptic Downs 117 Ml Btl MM 1 spray QID PRN PRN Administration Polyethylene Glycol 17 gm 10/30/23 08:49 11/02/23 13:41 Polyethylene Glycol 3350 17 Gm Packet PO 17 gm DAILY PRN PRN Administration Constipation Sodium Chloride 0 ml 10/31/23 00:03 11/02/23 08:07 Normal Saline Flush 10 Ml Syr IVP 40 ml PRN PRN Administration IV IV Catheter Type [Right Peripheral IV Midline] IV Catheter Type [Left Upper Saline Lock arm] IV Catheter Type [Right Hand] Saline Lock IV Catheter Type [Left Saline Lock Antecubital] IV Catheter Gauge [Left Upper 18 arm] IV Catheter Gauge [Right Hand] 18 IV Catheter Gauge [Left 18 Antecubital] Diet Orders Category Date Time Status DIET [Regular/Normal] [DIET] Nutrition 11/02/23 Breakfast Active Diagnostics 11/02/23 Range/Units 05:40 WBC 13.84 H (4.4-10.8) 10^3/uL RBC 4.06 L (4.36-5.78) 10^6/uL Hgb 12.6 L (13.5-17.5) g/dL Hct 38.2 L (40.0-50.0) % MCV 94 (80-95) fL MCH 31.0 (27.0-33.0) pg MCHC 33.0 (32.0-36.0) % RDW 13.5 (11.8-14.1) % Plt Count 253 (130-400) 10^3/uL MPV 9.4 (8.0-11.0) fL Immature Gran % 0.6 % Neutrophils % 83.3 % Lymphocytes % 10.0 % Monocytes % 4.4 % Eosinophils % 1.4 % Basophils % 0.3 % Nucleated RBC % 0.0 (0.0-0.3) % Absolute Neutrophils 11.53 H (1.2-6.7) 10^3/uL Absolute Lymphocytes 1.38 (1.2-3.4) 10^3/uL Absolute Monocytes 0.61 (0.1-0.8) 10^3/uL Absolute Eosinophils 0.19 (0.0-0.7) 10^3/uL Absolute Basophils 0.04 (0.0-0.2) 10^3/uL Sodium 141 (136-145) mmol/L Potassium 4.0 (3.5-5.1) mmol/L Chloride 104 (98-107) mmol/L Carbon Dioxide 27.6 (21.0-32.0) mmol/L Anion Gap 9.4 (3-11) mmol/L BUN 5 L (7-18) mg/dL Creatinine 0.9 (0.70-1.30) mg/dL Est GFR (CKD-EPI 2020) 108.68 (mL/min/1.73m2) Glucose 111 H (74-106) mg/dL Calcium 8.4 L (8.5-10.1) mg/dL 11/02/23 07:45 Sputum Culture - Pending Sputum Gram Stain - Final Intake and Output - 24 Hour Total 10/30/23 03:14 thru 11/02/23 15:39 Intake Total 48008.837 Output Total 8900 Balance 1851.837 Weight 73.4 kg Intake: IV 8761.837 Oral 1989 Output: Gastric Drainage 275 Left Nare 275 Urine 8625 Other: Urine Color Yellow Urine Appearance Clear Urine Odor None Comment Voiding independently Voiding Methods Urinal Urinary Catheter Urinary Catheter Date of 10/30/23 Insertion [2-way Urethral] Time of insertion [2-way 04:15 Urethral] Falls Risk Assessment History of Falls No History 10/30/23 04:02 Contributing Factors Unstable,Impairments, 10/30/23 04:02 Medications Ambulatory Aids Uses ambulatory device + 10/30/23 04:02 Tubes/Lines With any additional score 10/30/23 04:02 Gait Evaluation W/any additional score 10/30/23 04:02 Cognition Cognitive impairment 10/30/23 04:02 Fall Total Score 94 10/30/23 04:02 Level of Risk Maximum Risk 10/30/23 04:02 Restraint Information Behavior Requiring Restraints/ Harm to Patient Seclusion Date of Initiation 10/30/23 Note Pt extubated @0840, restraints d/c'd Criteria for Restraint Removal No longer threat to self Date Restraints Removed 11/01/23 Time Restraints Removed 08:40 Problems (Last Updated 02/04/22 @ 11:38 by Nicole Muller RN, RN) Fever (Acute) Attempted suicide (Acute) Depression (Chronic) Long QT interval (Acute) TCA (tricyclic antidepressant) overdose of undetermined intent (Acute) Endotracheally intubated (Acute) Tobacco abuse (Acute) Opioid dependence (Acute) Neck pain, chronic (Acute) DVT prophylaxis (Acute) Notes 10/31/23 14:54 Nursing Notes by Keri Fitzgerald entered patient chart for continuity of care with EMS for education Nursing Note: Initialized on 10/31/23 14:54 - END OF NOTE v v v v v v v v v Sending and/or Receiving Nurses: Please use comment section below to note any information pertinent to the patient hand-off not included above. Information / Comments: Situation: Arron, 43y male. poly substance OD. TCAs have not been replaced Background: extubaded 11/01/23. Cleared by mental health 11/02/23. Intubated in the field. Current smoker, experiencing harsh productive cough. Sputum is brown and milky. Sputum has been sent to lab. hx of spinal fusion Assessment: A&O, good mood, PERRLA O2 93-94% 38C now after tylenol, max temp 38.4C s1s2 Sinus, Sinus tachy upon movement no chest px constipated, normal for pt Stands to void skin intact, psoriasis interspersed over body movement slow from soreness and pain poison control has cleared him IV sites: RUE midline, LAC 20g no edema in lower legs 2 ticks found on gluteus- doxy Recommendations: supportive care antibiotics Medication Ordered/Administered: PO doxy APAP for temp, 38C now miralax this am nicotine patch right shoulder chloracyptic lozenge for post extubation psoriasis cream Aqua K on back of neck Report received from:
[2023-11-02] MEDS: Milk of Magnesia 30 ML CUP PO (18:11)
--- NOTE | 2023-11-02 18:45 | DI.VRAD_ITS ---
PROCEDURE INFORMATION: Exam: XR Chest Exam date and time: 11/02/2023 6:02 PM Age: 43 years old Clinical indication: Patient HX: Fever and cough persist, recent intubation TECHNIQUE: Imaging protocol: Radiologic exam of the chest. Views: 2 views. COMPARISON: CR XR PORTABLE CHEST AP 11/01/2023 10:27 AM FINDINGS: Lungs: Linear opacities noted in the bilateral lower lung zones, possibly atelectasis versus pneumonia. Pleural spaces: Unremarkable. No pleural effusion. No pneumothorax. Heart/Mediastinum: Unremarkable. No cardiomegaly. Bones/joints: Unremarkable. IMPRESSION: Linear opacities in the bilateral lower lung zones, possibly atelectasis versus pneumonia. Clinical correlation recommended. Dictated and Authenticated by: Blanquita Arreguin MD. Ordering:SUNITHA Crawford MD
[2023-11-02] MEDS: CEFEPIME 2 GM in Normal Saline 100 ML IVPB (18:49)
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
[2023-11-03] MEDS: CEFEPIME 2 GM in Normal Saline 100 ML IVPB ×2 (02:51→11:22)
[2023-11-03] MEDS: Milk of Magnesia 30 ML CUP PO (05:38)
[2023-11-03 07:27] VITALS: BP 112/74; PULSE 74; RESP 17; TEMP 37.8; O2SAT 93
[2023-11-03] MEDS: Doxycycline Hyclate 100 MG CAP PO (08:12)
[2023-11-03] MEDS: FLUoxetine 20 MG CAP 40 MG PO (08:12)
[2023-11-03] MEDS: Pantoprazole 40 MG VIAL IVP (08:12)
[2023-11-03] MEDS: Enoxaparin 40 MG/0.4 ML SYR SC (08:12)
[2023-11-03] MEDS: Normal Saline Flush 10 ML SYR IVP ×2 (08:12→11:22)
[2023-11-03] MEDS: Normal Saline 10 ML VIAL (08:12)
[2023-11-03] MEDS: Methadone Liquid 10 MG/ML 125 MG PO (08:13)
[2023-11-03] MEDS: Nicotine 21 MG/24 HR PATCH TD (08:14)
[2023-11-03] MEDS: Docusate Sodium 100 MG CAP PO (08:28)
[2023-11-03] MEDS: Budesonide/Formoterol 160/4.5 6 GM 60 PUFF INH IH (08:39)
--- NOTE | 2023-11-03 08:41 | PT.INTREAT ---
PT Notes Visit Reasons: TCA Overdose Inpatient Physical Therapy Treatment Note [facility] Date: 11/03/23 PRECAUTIONS:Standard SUBJECTIVE: Pt's partner reports that he is doing significantly better this am compared to yesterday. OBJECTIVE: Therapeutic Activities (36234r[]): Direct one-on-one instruction in dynamic activities to improve functional performance. ? BED MOBILITY/TRANSFERS? Rolling L/R: Supine-sit: I? Sit-supine: I ? Sit-stand: SBA? Stand-sit: SBA ? Provided skilled cues and instruction on performance and technique throughout. Gait Training ([id number][]): Direct one-on-one instruction and skilled instruction in: ? Therapeutic Exercises (77161y[2]): Direct one-on-one instruction in therapeutic exercises to develop strength, endurance, range of motion and flexibility. ? Exercises ? GTB horz abd x 10 GTB bicep curls x 10 Diagonals RTB x 10 B Rowing x 10 GTB LE ip abd with RTB x 10 LAQ GTB x 10 Ambulation ? Assistive Device: No device ? Weight bearing: Full Assist: CGA ? Distance:? 250ft ? Provided skilled instruction in proper exercise performance ? ASSESSMENT:? Pt seems to be doing better today from his partners perspective. She feels he is almost back to his normal and feels she is able to take care of him at this point at home without difficulty. PLAN: Cont as per PT POC. TREATMENT CODE/TIME: 8:10-8:40 (30) TEx2
[2023-11-03] MEDS: Acetaminophen 325 MG TAB PO (09:00)
[2023-11-03] MEDS: Methylnaltrexone 12 MG/0.6 ML VIAL SC (09:46)
[2023-11-03 10:29] VITALS: BP 114/85; BP 128/90; BP 131/76; PULSE 81; PULSE 85; PULSE 93
--- NOTE | 2023-11-03 11:39 | PTTR_ITS ---
PT Notes Visit Reasons: TCA Overdose Physical Therapy Inpatient treatment Note Date: 11/03/2023 Precautions: Fall. Standard. Activity as tolerated. On safety precautions for suicidal attempt. Subjective: Agreeable to to go through HEP for this session. Objective: General Observation: Supine in bed. Telemetry monitoring in place. Mental Status: Alert and oriented x4 Pain: as above Bed Mobility/Transfers: Rolling independent Supine to sit independent Sit to stand independent Stand to sit independent THERA EX: Facilitated safe and correct performance of HEP as follows. print out provided to maximize compliance and mastery at home. Access Code: [email or web address] URL: [email or web address] Date: 11/03/2023 Prepared by: Pallavi Lopez Exercises - Supine Bridge - 1 x daily - 7 x weekly - 1 sets - 10 reps - 5 hold - Clamshell with Resistance - 1 x daily - 7 x weekly - 1 sets - 10 reps - 5 hold - Hooklying Clamshell with Resistance - 1 x daily - 7 x weekly - 1 sets - 10 reps - 5 hold - Standard Plank - 1 x daily - 7 x weekly - 1 sets - 10 reps - 5 hold - Seated Hip Abduction with Resistance - 1 x daily - 7 x weekly - 1 sets - 10 reps - 5 hold - Squat with Chair Touch and Resistance Loop - 1 x daily - 7 x weekly - 1 sets - 10 reps - 5 hold - Shoulder External Rotation and Scapular Retraction with Resistance - 1 x daily - 7 x weekly - 1 sets - 10 reps - 5 hold - Shoulder extension with resistance - Neutral - 1 x daily - 7 x weekly - 1 sets - 10 reps - 5 hold - Shoulder Flexion Serratus Activation with Resistance - 1 x daily - 7 x weekly - 1 sets - 10 reps - 5 hold - Standing Shoulder Horizontal Abduction with Resistance - 1 x daily - 7 x weekly - 1 sets - 10 reps - 5 hold Assessment: Patient to go home today with support of PACO Luciano. HEP provided and reviewed. DISCHARGE RECOMMENDATIONS: [] Home with no services [] [X] Home with services. Patient will benefit from home health PT services in order to progress mobility level using least restrictive assistive ambulatory device, assess home safety, identify additional equipment needs, and establish a functional maintenance program that will increase ability of patient to remain at home. [] Home with outpatient PT [] [] SNF for continued rehabilitation [] [] Senior Living Care [] [] SNF versus LTC based on ability to participate and progress [] TREATMENT CODE/TIME: 21563 x 19 minutes for 1 unit (11:39?11:58).
--- NOTE | 2023-11-03 12:34 | DSE_ITS ---
Date of service: 11/03/23 Time of Service: 12:34 DS: Diagnosis Discharge Diagnosis (1) TCA (tricyclic antidepressant) overdose of undetermined intent: Status: Acute (2) Depression: Status: Chronic (3) Fever: Status: Acute (4) Tobacco abuse: Status: Acute (5) Opioid dependence: Status: Acute (6) Neck pain, chronic: Status: Acute (7) DVT prophylaxis: Status: Acute Discharge Plan Disposition Patient Disposition: Home Condition: Improving Discharge Details Reason For Visit: TCA Overdose Admit Date/Time: 10/30/23 07:23 Admit Provider: Reynaldo Motta Attending Provider: Reynaldo Motta Primary Care Provider: Glendy Cohen [place] [facility] Hospital Course: 44-year-old male with a history of depression and polysubstance abuse, was brought in via EMS unresponsive and intubated on 10/30/2023. He was found next to empty pill bottles and in the presence of alcohol. On arrival, EMS noted the patient was unresponsive, posturing, and tachypneic. He received 8 mg of Narcan without improvement and was subsequently intubated with 30 mg of Versed, 500 micrograms of fentanyl, 100 mg of succinylcholine, and 100 mg of ketamine. The patient was unresponsive with dilated non-reactive pupils. Electrocardiogram (EKG): Initial EKG showed a QRS of 128 and a prolonged QTc of 533. Chest X-ray: Showed the endotracheal tube positioned about 4 cm above the bennie, with no signs of pneumonia or pneumothorax. Head CT: Showed no acute findings. Laboratory Tests: CBC was unremarkable. CMP showed mild anion gap metabolic acidosis, mild hypokalemia, initial lactic acid level of 3.5, and metabolic acidosis with respiratory compensation on VBG. Initial troponin levels were negative. Substance Ingestion: The patient's girlfriend reported he ingested approximately 1400 mg of amitriptyline along with an unknown amount of cyclobenzaprine after an argument. Current Medications: Patient also takes methadone regularly. Poison Control Consultation: Advised admission to medicine with bicarbonate therapy due to the prolonged QTc and QRS interval. Propofol was titrated down in favor of a combination of Versed and fentanyl due to QTc prolongation. Bicarbonate administration was recommended if QRS widened to 135, with repeat doses if necessary, but no continuous bicarbonate drip was advised. The patient was admitted to the ICU. He improved slowly and on HD3 was exubated.? He has had several bouts of nausea and vomiting, improved with antiemetics. Patient developed a cough and a chest xray revealed a pneumonia.? He was treated with cefepime and doxycycline IV.? Patient was discharged to home stable, with 4 more days of doxycycline and 5 days of azithromycin, benzonatate for cough and guaefenesin for expectorant Patient was evaluated by mental health services and found not to be a harm to himself. Patient will follow up with mental health and the plan is to speak with them every day at 4 pm. He will be assigned a permanent counselor/therapist. ? Home Meds and New Rx's Prescriptions: New doxycycline hyclate 100 mg Capsule 100 mg PO BID Qty: 8 0RF amoxicillin-pot clavulanate 875-125 mg tablet 1 tab PO BID Qty: 10 0RF guaifenesin 1,200 mg tablet extended release 12hr 1,200 mg PO BID Qty: 14 0RF benzonatate 200 mg capsule 200 mg PO TID PRNQty: 20 0RF Continued methadone 10 mg/mL concentrate 125 mg PO DAILY Patient Comments: Verified 125mg/daily dosing w/CECILY Carpenter @ [facility] 10/30/23 pregabalin 100 mg capsule 100 mg PO TID fluoxetine 40 mg capsule 40 mg PO DAILY Patient Comments: take 1 capsule by mouth once daily albuterol sulfate [Ventolin HFA] 90 mcg/actuation HFA aerosol inhaler 2 puff inhalation Q4H PRN (Reason: shortness of breath) Patient Comments: inhale 2 puffs by mouth every 4 hours if needed lisdexamfetamine 70 mg capsule 70 mg PO QAM Patient Comments: TAKE 1 CAPSULE BY MOUTH EVERY MORNING Discontinued calcipotriene 0.005 % ointment 1 applic topical BID Rx Instructions: rub in gently and completely halobetasol propionate 0.05 % cream 1 applic topical DAILY budesonide-formoterol [Symbicort] 160-4.5 mcg/actuation HFA aerosol inhaler 2 puff inhalation BID valacyclovir 500 MG tablet 1,000 mg PO QDAY cyclobenzaprine 10 MG tablet 10 mg PO TID PRN PRN amitriptyline 25 mg tablet 50 mg PO HS Discharge Instructions Instructions: Pneumonia in adults, Depression in adults, Amoxicillin and Clavulanate, Benzonatate, Doxycycline, Guaifenesin, Suicide Prevention Additional Instructions: Take augmentin and doxycyline, both antibiotics until course is completed. Start Guaifenesin to help move secretions in your lungs. Start benzonatate for cough as needed. Follow up with your PCP in 1-2 weeks. Follow up with mental health. Take medication as prescribed. Call mental health daily at 4 PM as planned - they will set you up with a counselor/therapist. Keep right foot clean and dry; apply a large bandage to the heel area until blister has healed. Watch for signs of infection. Tylenol or motrin for fever/pain. Seek assistance if you are feeling depressed or want to hurt yourself. Stand Alone Forms: Nursing Discharge Form Referrals: Glendy Cohen MD [Primary Care Provider] - 11/11/23 10:00 am (1-2 weeks) Activity:: Activity as Tolerated Equipment/Supplies:: No Equipment Needed Diet:: As Tolerated Discharge Orders Discharge Orders: Discharge Order (Routine); Ordered 11/03/23 Ordered By: Catherine El Discharge Data Discharge Date/Time-TO BE ENTERED AT DEPARTURE: 11/03/23 13:44 DS: Summary Time Spent with Patient providing and/or coordinating discharge services: Less than 30 minutes Status at Discharge Functional status at discharge: independent ambulation Overall status at discharge: patient is back to baseline Mental Status: mental status grossly normal Speech and Movement: speech and movement normal Mood: congruent mood Affect: normal affect Quality:SDOH Health Related Social Needs: No Data to Display Exam Const General: no acute distress and anxious Nutritional Appearance: average body habitus and well nourished Orientation: alert, awake and oriented x3 Psych Mental Status: mental status grossly normal Speech and Movement: speech and movement normal Mood: congruent mood Affect: normal affect DS: Data Vitals/I&O Vitals and I&O: Vital Signs Temperature 37.8 C H 11/03/23 07:27 Temperature Source Skin 11/03/23 07:27 Pulse 81 11/03/23 10:29 Pulse Rhythm Regular 11/03/23 10:59 Pulse 87 11/02/23 15:24 Respiratory Rate 17 11/03/23 07:27 Respiratory Effort Normal 11/03/23 10:59 Respiratory Depth Normal 11/03/23 10:59 Respiratory Pattern Normal 11/03/23 10:59 Blood Pressure 131/76 11/03/23 10:29 Blood Pressure Mean 100 11/02/23 15:36 Blood Pressure Position Supine 11/02/23 15:36 Pulse Oximetry 93 11/03/23 07:27 Respiratory End-tidal CO2 42 11/01/23 07:28 Oxygen Delivery Method Room Air 11/03/23 07:27 Oxygen Flow Rate 0 11/03/23 07:27 Fraction of Inspired Oxygen (FIO2) 21 11/01/23 08:19 End Tidal Co2 33 10/30/23 03:57 Pain Level 3 11/03/23 10:00 Comment blood pressure done on right wrist 11/02/23 16:30 Intake & Output 11/02/23 11/03/23 11/03/23 23:59 11:59 23:59 Intake Total 120 / 2936.667 510 / 1010 500 / 1010 Balance 120 / 936.667 510 / 1010 500 / 1010 Intake: IV 120 / 1616.667 110 / 210 100 / 210 Oral 400 / 800 400 / 800 Other: Urine Color Pale Urine Appearance Clear Urine Odor Normal Comment pt reports voiding, flushed before staff could observe Patient up to bathroom to void independently; patient denies urinary symptoms and states has been voiding Stool Size Moderate Stool Characteristics Soft Formed Voiding Methods Toilet Toilet Data Completed and Pending Labs on day of discharge: 11/02/23 07:45 Sputum Sputum Culture - Pending Preliminary micro results at discharge 11/02/23 07:45 Sputum Culture - Pending Sputum PFSH All Active Problems (Updated 11/01/23 @ 09:52 by Ty Mar) Fever (Acute) Attempted suicide (Acute) Depression (Chronic) Long QT interval (Acute) TCA (tricyclic antidepressant) overdose of undetermined intent (Acute) Endotracheally intubated (Acute) Unresponsive (Acute) Tendinitis of long head of biceps brachii of left shoulder (Acute) subacromial corticosteroid injection 08/27/22 No-show for appointment (Acute) Tendonitis of long head of biceps brachii of right shoulder (Acute) subacromial corticosteroid injection 04/16/22 Arthritis of right acromioclavicular joint (Acute) MRSA carrier (Acute) Moderate recurrent major depression (Acute) ADHD (Acute) Mild persistent asthma in adult without complication (Acute) Hand dermatitis (Acute) Recurrent genital herpes (Acute) Tobacco abuse (Acute) Opioid dependence (Acute) Neck pain, chronic (Acute) Herniation of lumbar intervertebral disc with radiculopathy (Acute) Psoriasis (Chronic) Toothache (Acute) Deep venous thrombosis (Chronic) Abnormal LFTs (Acute) Common bile duct dilatation (Chronic) Constipation (Acute) Superficial thrombophlebitis (Acute) Alcohol withdrawal delirium (Acute) Discharge planning issues (Acute) DVT prophylaxis (Acute) Abdominal pain (Acute) Bronchitis (Acute) Vomiting (Acute) Acute epigastric pain (Acute) Dehydration (Acute) Medical History H/O acute pancreatitis H/O deep venous thrombosis Perforated ulcer Peptic ulcer disease Alcohol abuse quit in 2020 methadone from [facility] Surgical History (Updated 02/04/22 @ 11:53 by Nicole Muller RN, RN) History of esophagogastroduodenoscopy (EGD) H/O lumbar discectomy x2 12/24/21 C5-C7 ACDF S/P appendectomy Family History Mother Breast cancer Social History Smoking/Tobacco Use Status: Current every day Smoking risk assessment performed?: Yes Alcohol Intake: current Alcohol Intake frequency: 3 or more drinks per day Alcohol type: beer Drug use: Daily Substance use type: marijuana, heroin, painkillers and methamphetamine Current gender identity: male Do you feel safe at home: Yes Do you feel safe in your relationship?: Yes Time Spent with Patient Time Spent with Patient: 45-69 minutes Time was spent: preparing to see the patient(eg.review tests), obtaining and/or reviewing separately otained hiistory, ordering medications,tests, procedures, referring, communicating with other health post acute care nurse, indepentently interpreting results and care coordination
--- NOTE | 2023-11-03 13:49 | PDOC.CMDIS ---
Date of service: 11/03/23 Time of Service: 13:49 LACE Index Scoring Tool Questions: Length of Stay (in days): 4 - 6 Was the patient admitted via the E.D.?: Yes E.D. Visits: 0 Answers: Total Score: 7 Risk of Readmission: Low Risk Care Management Discharge Plan Reason for Hospitalization: TCA overdose Discharge Plan: Arron will return home today with no new services. PT recommended PT, which Arron declined. His girlfriend will drive him home via private vehicle; CM provided a gas card to support their transportation needs. JORGE provided a last dose letter to Arron for [facility]. He will follow up with [facility] outpatient, who will reach out to him throughout the week, and will support him to find a counselor in the area. He will also follow up with his PCP and discharge plan of care. He is happy to be going home. Patient/Family Education Needs: Review discharge instructions and limitations, including ask me three. SDOH Health Related Social Needs: No Data to Display Referrals and interventions: JORGE sent a referral to [facility] for transportation support. JORGE was able to locate a one time gas card and provided it to Arron and his girlfriend, who is his primary support. Care Management Referrals: SILVIA
--- NOTE | 2023-11-03 14:11 | NUR.NOTE ---
Nursing Note: Pt has all personal belongings, has no further questions regarding DC instructions, DC home with partner via private vehicle, ambulated to main entrance with staff.
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
== END 2023-11-03 13:44 | disposition home or self-care (01) | DRG 917 ==
LOC: ER 07:25 → ICU 08:41 → MS 11-02 16:26
PROVIDERS: Family Medicine; Admitting Provider Family Medicine; Emergency Provider Student in an Organized Health Care Education/Training Program; PCP Family Medicine; Visit Provider Family Medicine
DX: T43.012A Poisoning by tricyclic antidepressants, intentional self-harm, initial encounter (principal); J18.9 Pneumonia, unspecified organism; F11.20 Opioid dependence, uncomplicated; E87.20 Acidosis, unspecified; F33.1 Major depressive disorder, recurrent, moderate; R40.4 Transient alteration of awareness; R94.31 Abnormal electrocardiogram [ECG] [EKG]; R50.9 Fever, unspecified; K27.9 Peptic ulcer, site unspecified, unspecified as acute or chronic, without hemorrhage or perforation; F17.210 Nicotine dependence, cigarettes, uncomplicated; G89.29 Other chronic pain; M54.2 Cervicalgia; R00.0 Tachycardia, unspecified; E87.6 Hypokalemia; M75.22 Bicipital tendinitis, left shoulder; M75.21 Bicipital tendinitis, right shoulder; M19.011 Primary osteoarthritis, right shoulder; Z22.322 Carrier or suspected carrier of Methicillin resistant Staphylococcus aureus; F90.9 Attention-deficit hyperactivity disorder, unspecified type; J45.30 Mild persistent asthma, uncomplicated; L30.8 Other specified dermatitis; L40.9 Psoriasis, unspecified; K59.00 Constipation, unspecified; F10.11 Alcohol abuse, in remission; F12.90 Cannabis use, unspecified, uncomplicated; F15.90 Other stimulant use, unspecified, uncomplicated; R51.9 Headache, unspecified; H92.02 Otalgia, left ear; S30.811A Abrasion of abdominal wall, initial encounter; S80.812A Abrasion, left lower leg, initial encounter; S80.811A Abrasion, right lower leg, initial encounter; X58.XXXA Exposure to other specified factors, initial encounter
CPT/HCPCS: 36410; 00123; 36415; 74177; 80048; 80053; 80307; 82805; 84145; 85027; 92610; 93005; 94640; 96365; 96366; 96368; 96372; 96375; 97110; 97162; 97530; 99291; J1650; 70450; 71045; 71046; 71260; 72125; 73630; 80320; 80329; 81003; 81015; 83605; 83735; 84100; 84484; 85025; 85610; 85730; 87070; 87205; 93010; 94002; 94003; 94664; 94667; 99223; 99233; 99239; J0613; J0692; J2212; J2250; J2470; J2704; J3010; J3475; J3480; J3490; J7060

== ENCOUNTER 2023-12-31 06:08 | Inpatient (IN) | payer MEDICAID, SELFPAY ==
[2023-12-31] VITALS (153 sets, daily range): BP systolic 99–157; BP diastolic 62–103; PULSE 49–107; RESP 8–30; TEMP 35.9–36.4; O2SAT 94–100
--- NOTE | 2023-12-31 05:45 | RT.EKG_ITS ---
APPROVED REPORT Exam: Resting ECG Reason for Exam: overdose Patient Location: E HR:84 bpm ECG Measurements Heart Rate 84 AXIS IA 156 P 52 QRSd 109 QRS 66 QT 427 T 26 QTc 505 Conclusion Sinus rhythm...normal P axis, V-rate 60- 99 Prolonged QT interval...QTc >500mS Physician: QRS stable
--- NOTE | 2023-12-31 06:15 | DI.RAD_ITS ---
Exam(s) XR PORTABLE CHEST AP EXAM: XR PORTABLE CHEST AP CLINICAL HISTORY: post intubation TECHNIQUE: 2D digital imaging was performed. COMPARISON: CR,XR XR CHEST 2V PA LATERAL from 11/02/2023 FINDINGS: Leads overlie the chest. An endotracheal tube has been inserted. The tip lies at level the aortic arch. Nasogastric tube has been placed with the tip at the level of the GE junction. LUNGS: Suboptimal evaluation due to expiratory changes.. No pleural abnormality seen. HEART: Normal size. AORTA: Normal diameter. BONES: Unremarkable for age. Soft tissues: Unremarkable. IMPRESSION: Satisfactory placement of endotracheal tube. Nasogastric tube is positioned at the level of the GE j unction. DATA REPOSITORY: RADIATION DOSE DELIVERED:
[2023-12-31] MEDS: Etomidate 20 MG/10 ML VIAL IVP (06:19)
[2023-12-31] MEDS: Rocuronium 50 MG/5 ML SYR 100 MG IVP (06:20)
[2023-12-31] MEDS: PROPOFOL 1,000 MG/100 ML BTL 9.6 MG IV ×2 (06:23→17:04)
--- NOTE | 2023-12-31 06:36 | NUR.NOTE ---
Nursing Note:BIBA 0605 RT started bagging the patient for pre oxygenation prior to intubation During this time RNs were preparing meds, doing EKG and grabbing labs 0618 MD arrived back in the room ready for intubation 0619 20 etomidate 0620 100 Roccuronium 0621 intubated 22 at the tooth, appropriate color change noted on the co2 detector 0623 maint. sedation started at 20 0630 DI in room to confirm placement of the tube with Xray.
[2023-12-31 06:37] LABS: Lactate 1.4 mmol/L (0.6-1.4)
[2023-12-31 06:38] LABS: Abs Immature Grans 0.02 10^3/uL (0.0-0.06); Absolute Basophil Count 0.03 10^3/uL (0.0-0.2); Absolute Eosinophil Count 0.14 10^3/uL (0.0-0.7); Absolute Lymphocyte Count 1.94 10^3/uL (1.2-3.4); Absolute Monocyte Count 0.34 10^3/uL (0.1-0.8); Absolute Neutrophil Count 1.98 10^3/uL (1.2-6.7); Basophils % 0.7 %; Eosinophils % 3.1 %; HCT 35.8 % (40.0-50.0); HGB 11.6 g/dL (13.5-17.5); Immature Grans % 0.4 %; Lymphocytes % 43.6 %; MCH 30.7 pg (27.0-33.0); MCHC 32.4 % (32.0-36.0); MCV 95 fL (80-95); MPV 8.2 fL (8.0-11.0); Monocytes % 7.6 %; Neutrophils % 44.6 %; Platelet Count 245 10^3/uL (130-400); RBC 3.78 10^6/uL (4.36-5.78); RDW 14.6 % (11.8-14.1); RDW-SD 50.1 fL; WBC 4.45 10^3/uL (4.4-10.8)
[2023-12-31 06:47] LABS: BE -2 mmol/L (-2-3); HCO3 25 mmol/L (22-26); pCO2 47 mmHg (35-45); pH 7.32 (7.35-7.45); pO2 161 mmHg (80-105)
[2023-12-31 06:49] LABS: FIO2 50 %; Site Right Radial; sO2 > 99 % (95-98)
[2023-12-31] MEDS: Lactated Ringers 1,000 ML 1000 ML IV (07:00)
[2023-12-31 07:01] LABS: ALT 31 U/L (16-63); AST 24 U/L (15-37); Albumin 3.6 g/dL (3.4-5.0); Alkaline Phosphatase 73 U/L (46-116); Anion Gap 6.6 mmol/L (3-11); BUN 17 mg/dL (7-18); Bilirubin, Total 0.32 mg/dL (0.2-1.0); CO2 29.4 mmol/L (21.0-32.0); CREATININE 0.9 mg/dL (0.70-1.30); Calcium 7.9 mg/dL (8.5-10.1); Chloride 105 mmol/L (98-107); ETHANOL BLOOD 136.9 mg/dL (<10); Estimated GFR 108.68 (mL/min/1.73m2); Glucose 93 mg/dL (74-106); Sodium 141 mmol/L (136-145); TSH (W/Ref FT4) 1.14 uIU/mL (0.36-3.74); Total Protein 6.9 g/dL (6.4-8.2)
[2023-12-31 07:08] LABS: Salicylate 3.9 mg/dL (<2.8)
[2023-12-31 07:10] LABS: Acetaminophen < 2 ug/mL (10-30)
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
[2023-12-31 07:47] LABS: Bilirubin Negative (Negative); Blood Negative (Negative); Clarity Clear (Clear); Glucose Negative (Negative); Ketones Negative (Negative); Leukocyte Esterase Negative (Negative); Nitrite Negative (Negative); Specific Gravity <= 1.005 (1.005-1.025); Urobilinogen 0.2 mg/dL (Up to 0.2); pH 5.5 (5-8)
[2023-12-31 07:51] LABS: *AMPHETAMINES SCREEN URINE Negative (Negative); *BARBITURATES SCREEN URINE Negative (Negative); *BENZODIAZEPINES SCREEN URINE Negative (Negative); Cannabinoids THC Negative (Negative); Cocaine Screen,Urine Negative (Negative); METHADONE URINE SCREEN Positive (Negative); OPIATES URINE SCREEN Negative (Negative)
[2023-12-31 07:54] LABS: Tricyclic Antidepressants Negative (Negative)
[2023-12-31] MEDS: CALCIUM GLUCONATE in NaCl 1 GM/50 ML BAG IVPB (08:11)
--- NOTE | 2023-12-31 08:27 | DI.VRAD_ITS ---
PROCEDURE INFORMATION: Exam: XR Chest Exam date and time: 12/31/2023 6:37 AM Age: 43 years old Clinical indication: Device placement; Other: Post intubation TECHNIQUE: Imaging protocol: Radiologic exam of the chest. Views: 1 view. COMPARISON: CR XR CHEST 2V PA LATERAL 11/02/2023 6:02 PM FINDINGS: Tubes, catheters and devices: Endotracheal tube tip at the level of the sternal inlet. Feeding tube tip in the proximal stomach, repositioning may be necessary Lungs: Multifocal mild airspace disease Pleural spaces: Unremarkable. No pleural effusion. No pneumothorax. Heart/Mediastinum: Prominent cardiac silhouette Bones/joints: Unremarkable. IMPRESSION: Endotracheal tube tip at the level of the sternal inlet. Feeding tube tip in the proximal stomach, repositioning may be necessary Dictated and Authenticated by: Miranda Davidson MD. Ordering:JOE Quispe MD
[2023-12-31] MEDS: MAGNESIUM SULFATE 2 GM/50 ML BAG IVINF (08:42)
--- NOTE | 2023-12-31 09:22 | W.PM.HP.N ---
Date of service: 12/31/23 Time of Service: Assessment and Plan Assessment and plan (1) Overdose: Status: Acute Assessment and plan: Overdose due to an unknown quantity of cyclobenzaprine. Continue supportive care with respiratory support with intubation mechanical ventilation. Continue sedation overnight with propofol. As needed Ativan has been written for possible alcohol withdrawal and patient has been resumed on methadone per his OG. We will keep him sedated overnight and on the ventilator tomorrow morning performed a sedation holiday and see if he has recovered from his cyclobenzaprine overdose. Although it is an unknown quantity of cyclobenzaprine it sounds like was a handful not on a entire bottle full and hopefully will be metabolized within a day or 2. Critical care time spent interviewing and examining the patient, reviewing studies, discussing case with patient's nurse and consulting physicians was 60 minutes, patient seen with Dr. Janelle Olson in the emergency department Qualifiers: Encounter type: initial encounter Injury intent: intentional self-harm Qualified Code(s): T50.902A - Poisoning by unspecified drugs, medicaments and biological substances, intentional self-harm, initial encounter (2) Suicidal behavior with attempted self-injury: Status: Acute Assessment and plan: We will consult mental health once the patient is medically stabilized after extubation. (3) Moderate recurrent major depression: Status: Acute Assessment and plan: Consult mental health services once she is medically stable (4) Long QT interval: Assessment and plan: Monitor QT interval. This is a chronic condition probably related to his methadone use. However cyclobenzaprine can be associated with cardiac arrhythmias which can be treated with lidocaine. Will monitor him overnight correct any electrolyte abnormalities and treated with usual GI and DVT prophylaxis. (5) Opioid dependence: Assessment and plan: Continue his home dose of methadone with close monitoring of QT interval Qualifiers: Substance use status: with unspecified opioid-induced disorder Qualified Code(s): F11.29 - Opioid dependence with unspecified opioid-induced disorder (6) Alcohol abuse: (7) Hypocalcemia: Status: Acute Assessment and plan: Monitor and treat accordingly (8) Peptic ulcer disease: Assessment and plan: Patient placed on IV Protonix for GI protection (9) Tobacco abuse: Assessment and plan: Will apply transdermal nicotine patch (10) DVT prophylaxis: Status: Acute Assessment and plan: Placed on Lovenox History of Present Illness History of Present Illness Chief Complaint: obtunded, drug overdose Narrative: 43-year-old male with a history of known opioid use disorder chronically on methadone, and history of depression with previous suicidal attempts including tricyclic antidepressant overdose presents emergency department this morning at 6:10 AM via EMS obtunded. Report from EMS to the ED provider indicated the patient had been out walking with his girlfriend when he got a fight with her became upset and reportedly ingested a handful of Flexeril. Undetermined as to the exact amount. This ingestion occurred around 4:30 AM. These were not his own prescription. He apparently was still arousable when EMS arrived he had normal glucose level but by the time he reached the emergency department he was completely obtunded with hypopnea and bradypnea and was intubated by the ED provider. Workup included chest x-ray postintubation showed satisfactory placement of the endotracheal tube. The ED provider indicated to me that he had difficulty passing NG tube and there was some nasal trauma with some epistaxis which has been controlled OG tube was placed and per chest x-ray was at the level of the GE junction. An EKG was performed demonstrates sinus rhythm rate of 84 bpm no acute ischemic ST or T wave changes QTc interval was 505 ms which is prolonged compared to his last ECG from 11/02/2023 when it was 468 ms. Labs were remarkable for the following he has a mild anemia hemoglobin 11.6 g with hematocrit 35% with normal indices but elevated RDW of 14.6% he has a normal white count of 4400 with a normal differential. ABG taken after intubation showed a pH 7.32, pCO2 of 47, pO2 of 161 with a oxygen saturation. 99%. Chemistry panel was remarkable for calcium of 7.9 with a normal albumin of 3.6 normal potassium of 4.0 and normal magnesium at 2.0 with normal LFTs. TSH was normal. UDS was positive for methadone but otherwise negative for opiates barbiturates tricyclic antidepressants amphetamines and benzodiazepines and cocaine and THC. His blood alcohol level was 136 mg/dL consistent with his history of alcohol ingestion. Salicylate level was 3.9 and APAP level was less than 2. Treatment rendered in the emergency department including rapid sequence induction including etomidate 20 mg IV push rocuronium 100 mg IV push bolus given at 6:30 AM he was started on Ringer's solution and given 1000 mL bolus which has been completed he was given magnesium sulfate 2 g IV and calcium gluconate 1 g IV. Patient's comorbidities include asthma, polysubstance abuse and, depression, alcoholism and previous suicidal attempts with tricyclic antidepressant overdose. Patient is being admitted to the intensive care unit for respiratory support while the cyclobenzaprine wears off and he will be placed on as needed Ativan to prevent alcohol withdrawal and placed on scheduled doses of moderate acting narcotics to prevent acute narcotic withdrawal. Once he is extubated we will resume his methadone dose. Upon extubation we will request mental health consultation to evaluate for possible inpatient psychiatric evaluation and treatment of his depression and suicidal ideation. Review of Systems Unobtainable due to endotracheal tube PFSH All Active Problems (Updated 12/31/23 @ 10:19 by Jonathon Devine MD) DVT prophylaxis (Acute) Suicidal behavior with attempted self-injury (Acute) Hypocalcemia (Acute) Overdose (Acute) Attempted suicide (Acute) TCA (tricyclic antidepressant) overdose of undetermined intent (Acute) Unresponsive (Acute) Tendinitis of long head of biceps brachii of left shoulder (Acute) subacromial corticosteroid injection 08/27/22 No-show for appointment (Acute) Tendonitis of long head of biceps brachii of right shoulder (Acute) subacromial corticosteroid injection 04/16/22 Arthritis of right acromioclavicular joint (Acute) MRSA carrier (Acute) Moderate recurrent major depression (Acute) ADHD (Acute) Mild persistent asthma in adult without complication (Acute) Hand dermatitis (Acute) Recurrent genital herpes (Acute) Herniation of lumbar intervertebral disc with radiculopathy (Acute) Psoriasis (Chronic) Toothache (Acute) Deep venous thrombosis (Chronic) Abnormal LFTs (Acute) Common bile duct dilatation (Chronic) Constipation (Acute) Superficial thrombophlebitis (Acute) Alcohol withdrawal delirium (Acute) Discharge planning issues (Acute) Abdominal pain (Acute) Bronchitis (Acute) Vomiting (Acute) Acute epigastric pain (Acute) Dehydration (Acute) Medical History Depression Long QT interval Tobacco abuse Opioid dependence Neck pain, chronic H/O acute pancreatitis H/O deep venous thrombosis Perforated ulcer Peptic ulcer disease Alcohol abuse quit in 2020 methadone from [facility] Surgical History History of esophagogastroduodenoscopy (EGD) H/O lumbar discectomy x2 12/24/21 C5-C7 ACDF S/P appendectomy Family History Mother Breast cancer Social History Smoking/Tobacco Use Status: Current every day Smoking risk assessment performed?: Yes Alcohol Intake: current Alcohol Intake frequency: 3 or more drinks per day Alcohol type: beer Drug use: Daily Substance use type: marijuana, heroin, painkillers and methamphetamine Details: Presently here for OD on muscle relaxer Current gender identity: male Do you feel safe at home: Yes Do you feel safe in your relationship?: Yes Meds Allergies and Home Medications Allergies Allergy/AdvReac Type Severity Reaction Status Date / Time clindamycin Allergy Intermediate Hives Verified 10/30/23 04:36 NSAIDS (Non-Steroidal AdvReac Intermediate perforated Verified 10/30/23 04:36 Anti-Inflamma ulcer Home Medications ?Medication ?Instructions ?Recorded ?Confirmed ?Type methadone 10 mg/mL oral concentrate 125 mg PO DAILY 02/04/22 12/31/23 History pregabalin 100 mg capsule 100 mg PO TID 02/04/22 12/31/23 History albuterol sulfate 90 mcg/actuation 2 puff inhalation Q4H PRN 10/30/23 12/31/23 History aerosol inhaler (Ventolin HFA) shortness of breath fluoxetine 40 mg capsule 40 mg PO DAILY 10/30/23 12/31/23 History lisdexamfetamine 70 mg capsule 70 mg PO QAM 10/30/23 12/31/23 History Exam Narrative Exam Narrative: Young white male who is intubated lying in the emergency department on a gurney sedated on propofol drip. He is fairly well sedated there is no response to noxious stimulation. HEENT there is some dried blood in his left nares from previous attempts at NG placement. Pupils are midpoint and minimally reactive to direct and consensual light doll's eyes intact no scleral icterus no conjunctival injection oropharynx no exudate dentition is in poor repair Neck is supple no palpable cervical step-off no visible trauma normal carotid pulses no JVD no needle corona on his neck Chest wall no palpable crepitus no palpable deformities of his clavicle or ribs and no bruising on his chest Lungs are clear to auscultation in all leavitt Heart is regular rate and rhythm no murmur rub or gallop no palpable thrill or heave Abdomen is nondistended he has some faint bowel sounds in all 4 quadrants no audible bruits no palpable masses no organomegaly Extremities patient has tattoos on his arms and his legs there are no needle corona lower extremities he has a superficial ulcer of his right heel with no purulent drainage pedal pulses and radial pulses are intact. Did not faint needle corona on his feet or his legs. Neuro exam patient is minimally responsive and to a noxious stimulation bruises noted above. GCS 4 Results Labs 12/31/23 06:13 12/31/23 06:13 Labs: Laboratory Results - last 24 hr 12/31/23 12/31/23 12/31/23 06:13 06:42 07:00 WBC 4.45 RBC 3.78 L Hgb 11.6 L Hct 35.8 L MCV 95 MCH 30.7 MCHC 32.4 RDW 14.6 H Plt Count 245 MPV 8.2 Immature Gran % 0.4 Neutrophils % 44.6 Lymphocytes % 43.6 Monocytes % 7.6 Eosinophils % 3.1 Basophils % 0.7 Nucleated RBC % 0.0 Absolute Neutrophils 1.98 Absolute Lymphocytes 1.94 Absolute Monocytes 0.34 Absolute Eosinophils 0.14 Absolute Basophils 0.03 ABG Sample Site Right Radial ABG pH 7.32 L ABG pCO2 47 H ABG pO2 161 H ABG HCO3 25 ABG Total CO2 ABG O2 Saturation > 99 H ABG Base Excess -2 VBG Lactate 1.4 FiO2 50 Sodium 141 Potassium 4.0 Chloride 105 Carbon Dioxide 29.4 Anion Gap 6.6 BUN 17 Creatinine 0.9 Est GFR (CKD-EPI 2020) 108.68 Glucose 93 Calcium 7.9 L Magnesium 2.0 Total Bilirubin 0.32 AST 24 ALT 31 Alkaline Phosphatase 73 Total Protein 6.9 Albumin 3.6 TSH 1.14 Urine Color Yellow Urine Clarity Clear Urine pH 5.5 Ur Specific [place] <= 1.005 Urine Protein Negative Urine Ketones Negative Urine Blood Negative Urine Nitrite Negative Urine Bilirubin Negative Urine Urobilinogen 0.2 Ur Leukocyte Esterase Negative Urine Glucose Negative Salicylates 3.9 Urine Opiates Screen Negative Urine Methadone Screen Positive A Acetaminophen < 2 Ur Barbiturates Screen Negative Ur Tricyclics Screen Negative Ur Amphetamines Screen Negative U Benzodiazepines Scrn Negative Urine Cocaine Screen Negative Ur THC Screen Negative Ethyl Alcohol 136.9 H Last Vital Signs Pulse 62 12/31/23 09:01 Resp 14 12/31/23 09:01 BP 114/65 12/31/23 09:01 Pulse Ox 97 12/31/23 07:24 Time Spent Time spent with Patient: 55-74 minutes Time was spent: preparing to see the patient(eg.review tests), obtaining and/or reviewing separately otained hiistory, ordering medications,tests, procedures, referring, communicating with other health care team coordinator scheduler, indepentently interpreting results and care coordination
--- NOTE | 2023-12-31 10:17 | CRITCAR_ITS ---
General Date Of Service Date of service: 12/31/23 Time of Service: 09:00 Reason for Consult: Cyclobenzaprine OD, intubated for airway protection. History of Present Illness History of Present Illness Chief Complaint: found obtunded Narrative: 43-year-old male with a history of known opioid use disorder chronically on methadone, and history of depression with previous suicidal attempts including tricyclic antidepressant overdose presents emergency department this morning at 6:10 AM via EMS obtunded. Report from EMS to the ED provider indicated the patient had been out walking with his girlfriend when he got a fight with her became upset and reportedly ingested a handful of Flexeril. Undetermined as to the exact amount. This ingestion occurred around 4:30 AM. Upon arrival in the emergency room he was found to be progressively more lethargic being intubated for airway protection. Propofol immediately started in the emergency room. Review of Systems Narrative: Unable to be obtained due to intubation PFSH All Active Problems (Updated 12/31/23 @ 10:19 by Jonathon Devine MD) DVT prophylaxis (Acute) Suicidal behavior with attempted self-injury (Acute) Hypocalcemia (Acute) Overdose (Acute) Attempted suicide (Acute) TCA (tricyclic antidepressant) overdose of undetermined intent (Acute) Unresponsive (Acute) Tendinitis of long head of biceps brachii of left shoulder (Acute) subacromial corticosteroid injection 08/27/22 No-show for appointment (Acute) Tendonitis of long head of biceps brachii of right shoulder (Acute) subacromial corticosteroid injection 04/16/22 Arthritis of right acromioclavicular joint (Acute) MRSA carrier (Acute) Moderate recurrent major depression (Acute) ADHD (Acute) Mild persistent asthma in adult without complication (Acute) Hand dermatitis (Acute) Recurrent genital herpes (Acute) Herniation of lumbar intervertebral disc with radiculopathy (Acute) Psoriasis (Chronic) Toothache (Acute) Deep venous thrombosis (Chronic) Abnormal LFTs (Acute) Common bile duct dilatation (Chronic) Constipation (Acute) Superficial thrombophlebitis (Acute) Alcohol withdrawal delirium (Acute) Discharge planning issues (Acute) Abdominal pain (Acute) Bronchitis (Acute) Vomiting (Acute) Acute epigastric pain (Acute) Dehydration (Acute) Medical History Depression Long QT interval Tobacco abuse Opioid dependence Neck pain, chronic H/O acute pancreatitis H/O deep venous thrombosis Perforated ulcer Peptic ulcer disease Alcohol abuse quit in 2020 methadone from [facility] Surgical History History of esophagogastroduodenoscopy (EGD) H/O lumbar discectomy x2 12/24/21 C5-C7 ACDF S/P appendectomy Family History Mother Breast cancer Social History Smoking/Tobacco Use Status: Current every day Smoking risk assessment performed?: Yes Alcohol Intake: current Alcohol Intake frequency: 3 or more drinks per day Alcohol type: beer Drug use: Daily Substance use type: marijuana, heroin, painkillers and methamphetamine Details: Presently here for OD on muscle relaxer Current gender identity: male Do you feel safe at home: Yes Do you feel safe in your relationship?: Yes Visit Medication and Allergies Active Medications Generic Name Dose Route Start Last Admin Trade Name Freq PRN Reason Stop Dose Admin Etomidate 20 mg 12/31/23 06:30 12/31/23 06:19 Etomidate 20 Mg/10 Ml Vial IVP 20 mg DIRECTED CESAR Administration Propofol 1,000 mg in 100 mls @ 12 mls/hr 12/31/23 06:30 12/31/23 07:56 Diprivan IV 30 mcg/kg/min INFUSION CESAR 14.4 mls/hr Titration Protocol 25 MCG/KG/MIN Magnesium Sulfate 2 gm in 50 mls @ 25 mls/hr 12/31/23 07:32 12/31/23 08:42 IVINF 12/31/23 09:31 25 mls/hr NOW ONE Administration Calcium Gluconate 1 gm in 50 mls @ 100 mls/hr 12/31/23 07:45 12/31/23 08:11 IVPB 12/31/23 08:14 100 mls/hr NOW ONE Administration Rocuronium Flom 100 mg 12/31/23 06:30 12/31/23 06:20 Rocuronium 50 Mg/5 Ml Syr IVP 100 mg DIRECTED CESAR Administration Allergies clindamycin Allergy (Intermediate, Verified 10/30/23 04:36) Hives NSAIDS (Non-Steroidal Anti-Inflamma Adverse Reaction (Intermediate, Verified 10/30/23 04:36) perforated ulcer Exam Narrative Exam Narrative: Intubated and sedated unarousable in no acute distress. HEENT there is some dried blood in his left nares from previous attempts at NG placement. Pupils are midpoint and minimally reactive to direct and consensual light doll's eyes intact no scleral icterus no conjunctival injection oropharynx no exudate dentition is in poor repair Neck is supple , no visible trauma normal carotid pulses no JVD no needle corona on his neck Lungs are clear to auscultation in all [place] Heart is regular rate and rhythm no murmur rub or gallop Abdomen is nondistended bowel sounds present Extremities no needle corona, right heel ulcer, no edema Neuro exam patient is minimally responsive and to a noxious stimulation bruises noted above. Assessment and Plan Assessment and plan (1) Overdose: Status: Acute Assessment and plan: Cyclobenzaprine overdose. Needs to be observed for mental status improvement over the next 24 to 48 hours. He has been intubated for airway protection. Daily chest x-rays. Daily ABGs. Obtain a head CT Aspiration precautions Repeat chest x-ray later in the day given there was increased interstitial markings,? Aspiration pneumonitis. May initiate tube feeds via OG tube. Qualifiers: Encounter type: initial encounter Injury intent: intentional self-harm Qualified Code(s): T50.902A - Poisoning by unspecified drugs, medicaments and biological substances, intentional self-harm, initial encounter (2) Suicidal behavior with attempted self-injury: Status: Acute Assessment and plan: Will need to have director of casework services/psych eval prior to discharge (3) Moderate recurrent major depression: Status: Acute (4) Long QT interval: (5) Opioid dependence: Assessment and plan: He is on methadone so he would likely need [id number] morphine/oxycodone to avoid withdrawal Qualifiers: Substance use status: with unspecified opioid-induced disorder Q ualified Code(s): F11.29 - Opioid dependence with unspecified opioid-induced disorder (6) Alcohol abuse: Assessment and plan: May need to consider adding Ativan as needed for EtOH withdrawal (7) Hypocalcemia: Status: Acute (8) Peptic ulcer disease: Assessment and plan: Start Protonix IV daily (9) Tobacco abuse: (10) DVT prophylaxis: Status: Acute Assessment and plan: Heparin subcutaneous every 8 hours Results Last Vital Signs Pulse 62 12/31/23 09:01 Resp 14 12/31/23 09:27 BP 113/64 12/31/23 09:27 Pulse Ox 97 12/31/23 09:27 Labs 12/31/23 06:13 12/31/23 06:13 Labs: Laboratory Results - last 24 hr 12/31/23 12/31/23 12/31/23 06:13 06:42 07:00 WBC 4.45 RBC 3.78 L Hgb 11.6 L Hct 35.8 L MCV 95 MCH 30.7 MCHC 32.4 RDW 14.6 H Plt Count 245 MPV 8.2 Immature Gran % 0.4 Neutrophils % 44.6 Lymphocytes % 43.6 Monocytes % 7.6 Eosinophils % 3.1 Basophils % 0.7 Nucleated RBC % 0.0 Absolute Neutrophils 1.98 Absolute Lymphocytes 1.94 Absolute Monocytes 0.34 Absolute Eosinophils 0.14 Absolute Basophils 0.03 ABG Sample Site Right Radial ABG pH 7.32 L ABG pCO2 47 H ABG pO2 161 H ABG HCO3 25 ABG Total CO2 ABG O2 Saturation > 99 H ABG Base Excess -2 VBG Lactate 1.4 FiO2 50 Sodium 141 Potassium 4.0 Chloride 105 Carbon Dioxide 29.4 Anion Gap 6.6 BUN 17 Creatinine 0.9 Est GFR (CKD-EPI 2020) 108.68 Glucose 93 Calcium 7.9 L Magnesium 2.0 Total Bilirubin 0.32 AST 24 ALT 31 Alkaline Phosphatase 73 Total Protein 6.9 Albumin 3.6 TSH 1.14 Urine Color Yellow Urine Clarity Clear Urine pH 5.5 Ur Specific [place] <= 1.005 Urine Protein Negative Urine Ketones Negative Urine Blood Negative Urine Nitrite Negative Urine Bilirubin Negative Urine Urobilinogen 0.2 Ur Leukocyte Esterase Negative Urine Glucose Negative Salicylates 3.9 Urine Opiates Screen Negative Urine Methadone Screen Positive A Acetaminophen < 2 Ur Barbiturates Screen Negative Ur Tricyclics Screen Negative Ur Amphetamines Screen Negative U Benzodiazepines Scrn Negative Urine Cocaine Screen Negative Ur THC Screen Negative Ethyl Alcohol 136.9 H
[2023-12-31] MEDS: PROPOFOL 1,000 MG/100 ML BTL 19.2 MG IV (10:22)
--- NOTE | 2023-12-31 10:43 | DI.CT_ITS ---
Exam(s) CT HEAD WO EXAM: CT HEAD WO CLINICAL HISTORY: encephalopathy, drug overdose. TECHNIQUE: Imaging Protocol: Axial computed tomography images with coronal and sagittal reformatted images were created and reviewed COMPARISON: CT CT HEAD CERVICAL SPINE WO from 10/30/2023 FINDINGS: Ventricles and Extra axial spaces: Normal in size and morphology for the patient's age. Hemorrhage: None. Cerebral parenchyma: No evidence of acute infarct or mass. Midline shift: None. Brainstem/Cerebellum: Normal. Calvarium: Normal. Visualized Paranasal sinuses:Mucous retention in the ethmoid sinuses. Mild mucosal thickening of the left maxillary sinus. Mastoids: Clear. Soft Tissues: Unremarkable. ORBITS: Unremarkable. PITUITARY: Not enlarged. IMPRESSION: No acute intracranial process. RADIATION DOSE DELIVERED: Total DLP DATA REPOSITORY: All CT scans at this facility are submitted to the National Radiology Data Registry (NRDR) Dose Index Registry (DIR) with the [employer] (ACR). RADIATION OPTIMIZATION: All CT scans at this facility use at least one of these dose optimization te chniques: automated exposure control; mA and/or kV adjustment per patient size (includes targeted exa ms where dose is matched to clinical indication); or iterative reconstruction.
[2023-12-31 12:18] LABS: BE (Venous) -6 mmol/L (-2-3); HCO3 (Venous) 21 mmol/L (23-28); O2 Sat (Venous) 96 %; TCO2 (Venous) 22 mmol/L (24-29); pCO2 (Venous) 44 mmHg (41-51); pH (Venous) 7.29 (7.31-7.41); pO2 (Venous) 91 mmHg
[2023-12-31] MEDS: Lactated Ringers 1,000 ML 85 ML IV ×2 (12:24→23:30)
[2023-12-31] MEDS: Pantoprazole 40 MG VIAL IVP ×2 (12:27→23:21)
[2023-12-31] MEDS: Enoxaparin 40 MG/0.4 ML SYR SC (12:27)
[2023-12-31 12:33] LABS: Acetaminophen < 2 ug/mL (10-30)
[2023-12-31] MEDS: Normal Saline Flush 10 ML SYR (12:37)
--- NOTE | 2023-12-31 12:50 | NUR.NOTE ---
Girlfriend Winston Davila (on [employer]) stopped by to see the patient. She is very understanding of patient's situation. She confirmed that the patient's methadone dose is 125mg in AM and 50mg in afternoon. She also reported that the patient is scheduled to see Mental health 01/14/24 at 1030. The patient had an appt prior but his RCT ride fell through. Winston discussed the home stressors of them having roommates they kicked out, her and Arron having difficulty communicating without fighting, and financial stressors that have been constant this month. They are beginning to get situated and she is looking into couples counseling for them. She very much wants Arron to get help and is supportive of his recovery. She reports he has been hesitant to ask for help. Nursing Note:
--- NOTE | 2023-12-31 13:46 | DI.RAD_ITS ---
Exam(s) XR ABDOMEN FLAT PLATE EXAM: 2D digital imaging was performed. CLINICAL HISTORY: NG placement. COMPARISON: CT CT CHEST/ABD/PEL W from 10/30/2023 CR,XR XR PORTABLE CHEST AP from 12/31/2023 TECHNIQUE: Supine views of the abdomen performed. FINDINGS: BOWEL GAS PATTERN: Nondistended. Nasogastric tube projects in stomach. Moderate quantity of stool. CALCIFICATIONS: No radiopaque calcifications. OSSEOUS STRUCTURES: Normal for age. OTHER FINDINGS: None. IMPRESSION: 1. Nonobstructive bowel gas pattern. 2. Nasogastric tube projects in the body stomach. DATA REPOSITORY: RADIATION DOSE DELIVERED:
--- NOTE | 2023-12-31 15:50 | PHACLINREV_ITS ---
Pharmacy Admission Review Admission Clinical Review Admission Pharmacy Review: DVT prophylaxis (Acute) Suicidal behavior with attempted self-injury (Acute) Hypocalcemia (Acute) Overdose (Acute) Moderate recurrent major depression (Acute) clindamycin Allergy (Intermediate, Verified 10/30/23 04:36) Hives NSAIDS (Non-Steroidal Anti-Inflamma Adverse Reaction (Intermediate, Verified 10/30/23 04:36) perforated ulcer Resuscitation Status Full Code Height 5 ft 10 in Weight 73.6 kg Pharmacy Admission Review Renal Dosing Renal Dosing: BUN 17 mg/dL (7-18) 12/31/23 06:13 Creatinine 0.9 mg/dL (0.70-1.30) 12/31/23 06:13 Medications needing adjustments: Reviewed (CrCl 110 mL/min) List of meds needing interventions: Current medications are okay Anticoagulation Anticoagulation: Hgb 11.6 g/dL (13.5-17.5) L 12/31/23 06:13 Hct 35.8 % (40.0-50.0) L 12/31/23 06:13 Plt Count 245 10^3/uL (130-400) 12/31/23 06:13 Creatinine 0.9 mg/dL (0.70-1.30) 12/31/23 06:13 DVT Prophylaxis: Reviewed Medications: Enoxaparin (40mg daily) Opiate Usage Evaluate Pain Scale/Pains Meds: Reviewed (methadone 120mg AM and 50mg PM - confirmed with [facility]) Scheduled Bowel Reg ordered if on Opiates?: No Relevant Labs Relevant Labs: Sodium 141 mmol/L (136-145) 12/31/23 06:13 Potassium 4.0 mmol/L (3.5-5.1) 12/31/23 06:13 Chloride 105 mmol/L (98-107) 12/31/23 06:13 Magnesium 2.0 mg/dL (1.8-2.4) 12/31/23 06:13 Electrolytes, C-Reactive P, ESR: Reviewed Cardiac Review BP, HR, EF%: Reviewed (BP 129/88 and HR 49) QTc Review QTc: Reviewed (505 from 12/31/23) IV to PO Switch IV Medications: Reviewed (lorazepam, pantoprazole, propofol) Home Meds Home Med List reviewed: Intervened Relevent Home Meds Not ordered & why?: fluoxetine, Vyvanse and pregabalin - alejo broderick is currently NPO Confirmed methadone dose with [facility] as 120mg AM and 50mg PM, last dosed 12/30/23 Updated patients home med list with this dosing Current Meds Current Medication Order Review: Intervened Comments: Added IV admission order set Propofol currently at 20 mcg/kg/min - last dose change today at 1233
[2023-12-31] MEDS: Normal Saline Flush 10 ML SYR IVP (23:21)
[2024-01-01] VITALS (53 sets, daily range): BP systolic 101–157; BP diastolic 68–100; PULSE 64–116; RESP 14–27; TEMP 36.4–37.6; O2SAT 91–99
[2024-01-01] MEDS: Methadone Liquid 10 MG/ML 50 MG PO ×2 (00:17→21:37)
[2024-01-01] MEDS: PROPOFOL 1,000 MG/100 ML BTL 9.6 MG IV (03:07)
[2024-01-01 06:48] LABS: Abs Immature Grans 0.02 10^3/uL (0.0-0.06); Absolute Basophil Count 0.02 10^3/uL (0.0-0.2); Absolute Eosinophil Count 0.08 10^3/uL (0.0-0.7); Absolute Monocyte Count 0.34 10^3/uL (0.1-0.8); Absolute Neutrophil Count 5.03 10^3/uL (1.2-6.7); Basophils % 0.3 %; Eosinophils % 1.2 %; HCT 37.2 % (40.0-50.0); Immature Grans % 0.3 %; Lymphocytes % 17.9 %; MCH 30.6 pg (27.0-33.0); MCHC 32.3 % (32.0-36.0); MCV 95 fL (80-95); MPV 8.4 fL (8.0-11.0); Monocytes % 5.1 %; Neutrophils % 75.2 %; Platelet Count 261 10^3/uL (130-400); RBC 3.92 10^6/uL (4.36-5.78); RDW-SD 51.4 fL; WBC 6.69 10^3/uL (4.4-10.8)
[2024-01-01 07:14] LABS: ALT 27 U/L (16-63); AST 20 U/L (15-37); Albumin 3.1 g/dL (3.4-5.0); Alkaline Phosphatase 80 U/L (46-116); Anion Gap 6.7 mmol/L (3-11); BUN 11 mg/dL (7-18); Bilirubin, Total 0.78 mg/dL (0.2-1.0); CO2 28.3 mmol/L (21.0-32.0); CREATININE 0.8 mg/dL (0.70-1.30); Chloride 107 mmol/L (98-107); Estimated GFR 112.61 (mL/min/1.73m2); Glucose 77 mg/dL (74-106); Potassium 3.7 mmol/L (3.5-5.1); Sodium 142 mmol/L (136-145); Total Protein 6.3 g/dL (6.4-8.2)
[2024-01-01] MEDS: Metoclopramide 10 MG/2 ML VIAL IVP (07:33)
--- NOTE | 2024-01-01 07:37 | PGE_ITS ---
Date of Service Date of service: 01/01/24 Time of Service: 07:37 Assessment and Plan Assessment and plan (1) Overdose: Status: Acute Assessment and plan: secondary to cyclobenzaprine, was intubated yesterday on arrival to the ED d/t obtunded state and unable to protect his airway. He had no problems w/ oxygenation ovrenight and remained on 21% FIO2 on the ventilator, now acevedo ccessfully extubated; he has prn albuterol MDI but is not actively wheezing at present, will encourage cough and deep breathing, use of IS and acapella for airway clearance; early mobilization out of bed. Will consult mental health today for evaluation of his suicidal behaviors and treatment of his depression. Arrange PCSO sitter for one to one monitoring. Trial of clear liquids at lunch and if tolerating and advance to regular solids. Critical care time spent interviewing and examining the patient, reviewing studies, discussing case with patient's nurse and consulting physicians was 30 minutes Qualifiers: Encounter type: initial encounter Injury intent: intentional self-harm Qualified Code(s): T50.902A - Poisoning by unspecified drugs, medicaments and biological substances, intentional self-harm, initial encounter (2) Suicidal behavior with attempted self-injury: Status: Acute (3) Moderate recurrent major depression: Status: Acute Assessment and plan: Consult mental health services once she is medically stable (4) Long QT interval: Assessment and plan: Monitor QT interval. This is a chronic condition probably related to his methadone use. However cyclobenzaprine can be associated with cardiac arrhythmias which can be treated with lidocaine. Will monitor him overnight correct any electrolyte abnormalities and treated with usual GI and DVT prophylaxis. (5) Opioid dependence: Assessment and plan: Continue his home dose of methadone with close monitoring of QT interval Qualifiers: Substance use status: with unspecified opioid-induced disorder Qualified Code(s): F11.29 - Opioid dependence with unspecified opioid-induced disorder (6) Alcohol abuse: (7) Hypocalcemia: Status: Acute Assessment and plan: Monitor and treat accordingly (8) Peptic ulcer disease: Assessment and plan: Patient placed on IV Protonix for GI protection (9) Tobacco abuse: Assessment and plan: Will apply transdermal nicotine patch (10) DVT prophylaxis: Status: Acute Assessment and plan: Placed on Lovenox Subjective Subjective Interval history since last seen: Patient awake, following commands, gagging on ET and OG tubes, RT and nursing in the room, patient was extubated successfully. He is still a little groggy but awake enough to follow commands and to protect his airway. Exam Narrative Exam Narrative: awake, following commands, but still a little groggy LUngs: clear anteriorly, both bases w/ diminished breath sounds Heart: RRR, rhythm sinus Abdomen: soft, nontender Objective Last Vital Signs Temp 36.5 C 01/01/24 06:00 Pulse 74 01/01/24 06:00 Resp 14 01/01/24 06:00 BP 124/78 01/01/24 06:00 Pulse Ox 94 01/01/24 06:00 Laboratory Results - last 24 hr 12/31/23 12/31/23 12/31/23 06:13 07:00 11:55 WBC RBC Hgb Hct MCV MCH MCHC RDW Plt Count MPV Immature Gran % Neutrophils % Lymphocytes % Monocytes % Eosinophils % Basophils % Nucleated RBC % Absolute Neutrophils Absolute Lymphocytes Absolute Monocytes Absolute Eosinophils Absolute Basophils VBG pH 7.29 L VBG pCO2 44 VBG pO2 91 VBG HCO3 21 L VBG Total CO2 22 L VBG O2 Saturation 96 VBG Base Excess -6 L VBG Lactate Cancelled Sodium Potassium Chloride Carbon Dioxide Anion Gap BUN Creatinine Est GFR (CKD-EPI 2020) Glucose Calcium Magnesium 2.0 Total Bilirubin AST ALT Alkaline Phosphatase Total Protein Albumin Urine Color Yellow Urine Clarity Clear Urine pH 5.5 Ur Specific [place] <= 1.005 Urine Protein Negative Urine Ketones Negative Urine Blood Negative Urine Nitrite Negative Urine Bilirubin Negative Urine Urobilinogen 0.2 Ur Leukocyte Esterase Negative Urine Glucose Negative Urine Opiates Screen Negative Urine Methadone Screen Positive A Acetaminophen Ur Barbiturates Screen Negative Ur Tricyclics Screen Negative Ur Amphetamines Screen Negative U Benzodiazepines Scrn Negative Urine Cocaine Screen Negative Ur THC Screen Negative 12/31/23 01/01/24 11:55 06:22 WBC 6.69 RBC 3.92 L Hgb 12.0 L Hct 37.2 L MCV 95 MCH 30.6 MCHC 32.3 RDW 15.0 H Plt Count 261 MPV 8.4 Immature Gran % 0.3 Neutrophils % 75.2 Lymphocytes % 17.9 Monocytes % 5.1 Eosinophils % 1.2 Basophils % 0.3 Nucleated RBC % 0.0 Absolute Neutrophils 5.03 Absolute Lymphocytes 1.20 Absolute Monocytes 0.34 Absolute Eosinophils 0.08 Absolute Basophils 0.02 VBG pH VBG pCO2 VBG pO2 VBG HCO3 VBG Total CO2 VBG O2 Saturation VBG Base Excess VBG Lactate 2.0 H Sodium 142 Potassium 3.7 Chloride 107 Carbon Dioxide 28.3 Anion Gap 6.7 BUN 11 Creatinine 0.8 Est GFR (CKD-EPI 2020) 112.61 Glucose 77 Calcium 8.0 L Magnesium Total Bilirubin 0.78 AST 20 ALT 27 Alkaline Phosphatase 80 Total Protein 6.3 L Albumin 3.1 L Urine Color Urine Clarity Urine pH Ur Specific [place] Urine Protein Urine Ketones Urine Blood Urine Nitrite Urine Bilirubin Urine Urobilinogen Ur Leukocyte Esterase Urine Glucose Urine Opiates Screen Urine Methadone Screen Acetaminophen < 2 Ur Barbiturates Screen Ur Tricyclics Screen Ur Amphetamines Screen U Benzodiazepines Scrn Urine Cocaine Screen Ur THC Screen Time Spent with Patient Time Spent with Patient: 25-34 minutes Time was spent: preparing to see the patient(eg.review tests), ordering medications,tests, procedures, referring, communicating with other health insurance healthcare representative, indepentently interpreting results, counseling the patient and care coordination
--- NOTE | 2024-01-01 08:00 | RT.EKG_ITS ---
APPROVED REPORT Exam: Resting ECG Reason for Exam: prolonged QTC Patient Location: I HR:82 bpm ECG Measurements Heart Rate 82 AXIS WV 145 P 56 QRSd 105 QRS 65 QT 417 T 28 QTc 487 Conclusion Sinus rhythm...normal P axis, V-rate 50- 99 Normal Electrocardiogram
--- NOTE | 2024-01-01 08:50 | INITIAL_ITS ---
Date of service: 01/01/24 Time of Service: 08:51 Care Management Initial Assmt Initial Assessment Reason for Hospitalization: Overdose due to an unknown quantity of cyclobenzaprine, Suicidal behavior with attempted self-injury Functional Status/Living Situation Patient Presentation: Arron is lying down with the HOB elevated when CM met with him. Pt engages in conversation, minimally. He was recently extubated and is being closely monitored in the ICU and is not medically cleared. Friend Winston brought him a change of clothes this morning and is sitting next to his bed, at RN discretion. Mental Health eval is requested. Town of Residence: [place] Resides with: Alone Employment Status: Disabled (Waiting for his disability to go through) Instrumental Activities of Daily Living (ADLs): Independent Medications Medication Management: Issues/Barriers with Other (Here for an Overdose, high discharge risk) Physical Functioning/Mobility Assistive Device: Uses a cane, PRN Advance Directives Advance Directives: Do you have an Advance Directive: N 09/06/12 14:01 AD On File at [facility]: N 07/26/12 12:53 Date Asked 12/31/23 01/01/24 10:07 AD Date Reviewed COLST On File at [facility] No 06/12/20 17:31 COLST Date Scanned Code Status Resuscitation Status Full Code Portal Pt does not currently have a portal and education provided: Yes Insurance Coverage/Financial Issues Insurance: Medicaid Financial Issues: Patient is unemployed, may benefit from a SILVIA referral. Care Team Visit Care Team Role Provider Type Glendy Cohen MD Primary Care Provider [facility] STAFF PHYSICIAN Janelle Olson MD Other Providers [facility] STAFF PHYSICIAN Jose Enrique Campos DO Emergency Provider [facility] STAFF PHYSICIAN Jonathon Devine MD Admit Provider [facility] STAFF PHYSICIAN Attending Provider Discharge Potential Discharge Needs: PCP F/U Appt Anticipated Barriers to Discharge: Medical Status (Currently intubated in the ICU) Patient/Family Education Needs: Review discharge instructions, discuss Ask Me Three Transportation: Other (Dependent on dispo) Plan: Arron is being closely monitored at ICU level of care. Once he becomes medically cleared, he will have a mental health evaluation by [facility]. His transport will depend on disposition; private vehicle if returning home vs secure transport if transferring for mental health treatment. He will follow up with his PCP and discharge plan of care.SILVIA referral will be offered prior to discharge. CM will continue to follow. PFSH All Active Problems (Updated 12/31/23 @ 10:19 by Jonathon Devine MD) DVT prophylaxis (Acute) Suicidal behavior with attempted self-injury (Acute) Hypocalcemia (Acute) Overdose (Acute) Attempted suicide (Acute) TCA (tricyclic antidepressant) overdose of undetermined intent (Acute) Unresponsive (Acute) Tendinitis of long head of biceps brachii of left shoulder (Acute) subacromial corticosteroid injection 08/27/22 No-show for appointment (Acute) Tendonitis of long head of biceps brachii of right shoulder (Acute) subacromial corticosteroid injection 04/16/22 Arthritis of right acromioclavicular joint (Acute) MRSA carrier (Acute) Moderate recurrent major depression (Acute) ADHD (Acute) Mild persistent asthma in adult without complication (Acute) Hand dermatitis (Acute) Recurrent genital herpes (Acute) Herniation of lumbar intervertebral disc with radiculopathy (Acute) Psoriasis (Chronic) Toothache (Acute) Deep venous thrombosis (Chronic) Abnormal LFTs (Acute) Common bile duct dilatation (Chronic) Constipation (Acute) Superficial thrombophlebitis (Acute) Alcohol withdrawal delirium (Acute) Discharge planning issues (Acute) Abdominal pain (Acute) Bronchitis (Acute) Vomiting (Acute) Acute epigastric pain (Acute) Dehydration (Acute) Medical History Depression Long QT interval Tobacco abuse Opioid dependence Neck pain, chronic H/O acute pancreatitis H/O deep venous thrombosis Perforated ulcer Peptic ulcer disease Alcohol abuse quit in 2020 methadone from [facility] Surgical History History of esophagogastroduodenoscopy (EGD) H/O lumbar discectomy x2 12/24/21 C5-C7 ACDF S/P appendectomy Family History Mother Breast cancer Social History Smoking/Tobacco Use Status: Current every day Smoking risk assessment performed?: Yes Alcohol Intake: current Alcohol Intake frequency: 3 or more drinks per day Alcohol type: beer Drug use: Daily Substance use type: marijuana, heroin, painkillers and methamphetamine Details: Presently here for OD on muscle relaxer Current gender identity: male Do you feel safe at home: Yes Do you feel safe in your relationship?: Yes Readmission Within the Past 30 Days Yes or No: Yes
--- NOTE | 2024-01-01 09:00 | PDOC.CMSAFE ---
Date of service: 01/01/24 Time of Service: 09:00 Care Management Safety Plan Status Status: Voluntary (Currently voluntary, EE recommended per [facility], patient also needs a TelePsych consult) Reason for Wait Reason for Wait: Inpatient Admission (Awaiting inpatient psych treatment at an accepting facility, once medically ready for discharge.) and Medical Clearance (Not medically cleared) Safety Plan Safety Plan: VOLUNTARY FOR INPATIENT PSYCHIATRIC STABILIZATION. Patient is appropriate in all interactions since arriving at [facility]; Pt has demonstrated appropriate coping and communication skills, has articulated his or her needs and concerns and is fully engaged during staff interactions. Safety plan has been established with patient, and care team, to adhere to patient goals, identify restrictions based on behavioral status, address nutrition, and determine allowed personal belongings, tools for hygiene and personal care. Determine level of activity including ambulation, level of supervision, visitors, and determine privileges based on behaviors and level of engagement by pt. SAFETY PLAN: 1. Will remain on suicide precautions. In Paper Clothes 2. Will remain in room under direct supervision of one-on-one staff at all times provided by CPSO; QUIN, ADULT PROBATION OFFICER biology adjunct instructor. 3. May have paper cups, plates, finger foods as well as a cardboard spoon with which to eat meals. 4. Follow [facility] Management of the Admitted Behavioral Health Patient policy. 5. Comfort bath system only, shower permitted with escort at RN discretion. 6. No personal belongings-soft items permitted at RN discretion. 7. Visitors-none at this time. 8. Activities: soft cart items approved per RN discretion. 9. Bathroom privileges with escort in the ED, available in room without limitation on M/S. 10. Phone: contact limited to family at this time, via cordless phone at RN discretion. 11. Due to VOLUNTARY status, if patient wishes to leave [facility], staff will contact [facility] Crisis Screener ([phone]) and On-Call [employer] Splitter ([phone]) as soon as possible. In the event of elopement, notify [place] [employer] ([phone]). Patient is currently voluntarily at [facility] and seeking inpatient admission when a bed becomes available. [facility] Frontline Wrist Liner will continue seeking placement. Please contact the Clam Digger Sandstone Splitter ([phone]) and [facility] Wrist Liner ([phone]) for any needed changes in the Safety Plan. Safety plan has been provided to interdepartmental care team.
[2024-01-01] MEDS: Methadone Liquid 10 MG/ML 120 MG PO (09:48)
[2024-01-01] MEDS: Lactated Ringers 1,000 ML 85 ML IV (11:21)
--- NOTE | 2024-01-01 13:46 | PDOC.MHCN_ITS ---
Date of service: 01/01/24 Time of Service: 10:27 PHQ-9 Over the last 2 weeks, how often have you been bothered by any of the following problems? 1. Little interest or pleasure in doing things: nearly every day 2. Feeling down, depressed, or hopeless: more than half the days 3. Trouble falling or staying asleep, or sleeping too much: nearly every day 4. Feeling tired or having little energy: nearly every day 5. Poor appetite or overeating: not at all 6. Feeling bad about yourself - or that you are a failure or have let yourself and your family down: nearly every day 7. Trouble concentrating on things, such as reading the newspaper or watching television: not at all 8. Moving or speaking so slowly that other people could have noticed? - Or the opposite - being so fidgety or restless that you have been moving around a lot more than usual: not at all 9. Thoughts that you would be better off or of hurting yourself in some way: nearly every day Total score: 17 If you checked off any problems, how difficult have these problems made it for you to do your work, take care of things at home, or get along with other people?: somewhat difficult PHQ-9 Results: Positive Source: Developed by Drs. Alf Pina, Joi Rivera, Noah Meza and colleagues, with an educational roseann from [employer]. Suicide Severity Rate CSSRS Have you wished you were or wished you could go to sleep and not wake up?: Yes Have you actually had any thoughts of killing yourself?: Yes CSSRS2 Have you been thinking about how you might do this?: Yes Have you had these thoughts and had some intention of acting on them?: Yes Have you started to work out or worked out the details of how to kill yourself? Do you intend to carry out this plan?: Yes CSSRS3 Have you ever done anything, started to do anything or prepared to do anything to end your life?: Yes CSSRS4 Was this within the past three months?: Yes Screening Score Total Score: 8 Screening: Positive Mental Health Emergency Note Release [facility] release signed:: Yes Reason for Visit The client arrived at [facility] ED in the english and reading instructor hours of 12/31/2023 via EMS. Per report of [facility] ED note: ?he was out for a walk with his girlfriend where they got into an argument, and he became upset and took ?a whole handful of Flexeril.? Per the clients report when asked about what brought him to the emergency room he states: ?I overdosed on pills and attempted to commit suicide.? This writer editor asks the client how many pills he took, and he reports: ?70.? Per report of [facility] staff the client is not prescribed Flexeril so is unsure where he received the medications. In the last 2 weeks has the pt presented for ES prior to today?: No Client Information Client is: Adult Outpatient Well Housed: Yes Non Suicidal Self Injury Current: Yes, intentional overdose of flexeril History: yes, hx of intentional OD on 11/01 Safety Risk/Harm to Self or Others Current Ideation to Harm Self or Others: No Risk: Does risk to harm exist?: yes. Risk: High Risk Duty to warn indicated: No Asssessment/Mental Status Appearance: Disheveled Attitude: Cooperative and Guarded Behavior: Unremarkable Speech: Soft and Slurred Affect: Flat and Cogruent with mood Mood: Stressed and Anxious Thought process: Unremarkable Hallucinations: No Delusions: yes, Bizarre Attention: Poor concentration Perception: Not impaired Orientation: Fully orientated Memory: Intact Insight: Poor Judgement: Poor Neurovegetative Symptoms Sleep: No change Appetitie: No change Interests: No change Energy: No change Libido: Not applicable Substance Use: Do you use nicotine?: Yes Have you used substances in the last 7 days?: yes, Per clients report marijuana- under the influence of alcohol upon arrival at the hospital Additional Issues: Assaultive/Threatening Behavior: No Medical Concerns: No Client engaged in active self harm w/weapon: No Threatening to run away: No Child reported abuse/neglect: No Voluntarily presenting for services: No Domestic violence is a concern: No Extreme Psychosis or extreme behavior is present: No Impression The client is sitting up in a hospital bed dressed in a hospital gown when this writer editor enters the room. The client?s appearance is disheveled. The client is initially cooperative with the assessment, however towards the end he became very guarded and was not willing to answer any further questions. The client appears to be having some delusions as this writer editor observes the client trying to pick things off from his arms and torso and reports that he has bugs crawling on him. At a different point during the assessment the client is focusing on the board in the wall and this writer editor asks what he is looking at and he states: ?we are stuck in traffic, there is traffic right there.? The client is showing poor insight and judgment into actions that led him coming to the emergency room stating: ?I shouldn?t be here I should be .? The client arrived at [facility] ED in the english and reading instructor hours of 12/31/2023 via EMS. Per report of [facility] ED note: ?he was out for a walk with his girlfriend where they got into an argument, and he became upset and took ?a whole handful of Flexeril.? Per the clients report when asked about what brought him to the emergency room he states: ?I overdosed on pills and attempted to commit suicide.? This writer editor asks the client how many pills he took, and he reports: ?70.? Per report of [facility] staff the client is not prescribed Flexeril so is unsure where he received the medications. Per [facility] records the client was assessed on 11/02/2023 while in the ICU at [facility] ED after he was found unresponsive with two empty pill bottles beside him. At the time of the assessment the least restrictive option was tried with a safety plan, however the client did not follow through with the safety plan Plan/Disposition Recommended Disposition: Hospitalization (Referrals will be sent to all hospitals) facilities contacted. Plan: The client will remain at [facility] on involuntary status pending 2nd certification with a psychiatrist from [facility]. Referrals will be faxed to [facility], [facility], [facility], [facility], and [facility]. The client will be re-assessed by [facility] 2x daily until placement is secured. Person reported agreement to plan: No Reports/communication Outcome discussed with: ED/Personnel (verbal passover given to provider and care support representative)
[2024-01-01] MEDS: Enoxaparin 40 MG/0.4 ML SYR SC (18:18)
[2024-01-01] MEDS: Nicotine 21 MG/24 HR PATCH TD (18:18)
[2024-01-01] MEDS: Normal Saline Flush 10 ML SYR IVP (18:18)
[2024-01-01] MEDS: Pantoprazole 40 MG VIAL IVP (18:18)
[2024-01-01] MEDS: Albuterol HFA 8 GM 60 PUFF INH IH (20:06)
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
[2024-01-02 07:19] VITALS: BP 112/72; PULSE 64; RESP 18; TEMP 36.6; O2SAT 97
[2024-01-02] MEDS: Methadone Liquid 10 MG/ML 120 MG PO (08:24)
[2024-01-02] MEDS: Nicotine 21 MG/24 HR PATCH TD ×2 (08:26→15:12)
[2024-01-02] MEDS: [UNRECOGNIZED DRUG - OTHER] PO (08:28)
[2024-01-02] MEDS: Thiamine 100 MG TAB PO (08:28)
[2024-01-02] MEDS: Multivitamin TAB 1 TAB PO (08:28)
[2024-01-02] MEDS: FLUoxetine 20 MG CAP 40 MG PO (08:28)
[2024-01-02] MEDS: Folic Acid 1 MG TAB PO (08:28)
[2024-01-02] MEDS: Pantoprazole 40 MG VIAL IVP (08:29)
[2024-01-02 11:19] VITALS: BP 128/89; PULSE 83; RESP 18; TEMP 37.1; O2SAT 95
[2024-01-02] MEDS: Pregabalin 100 MG CAP PO ×2 (13:16→20:56)
--- NOTE | 2024-01-02 13:46 | W.PM.PROGNOT ---
Date of Service Date of service: 01/02/24 Time of Service: 13:46 Assessment and Plan Assessment and plan (1) Overdose: Status: Acute Assessment and plan: secondary to cyclobenzaprine, was intubated on admission but then was succesfully extubated the following morning. Now he is under certification, awaiting a second certification process. Qualifiers: Encounter type: initial encounter Injury intent: intentional self-harm Qualified Code(s): T50.902A - Poisoning by unspecified drugs, medicaments and biological substances, intentional self-harm, initial encounter (2) Suicidal behavior with attempted self-injury: Status: Acute (3) Moderate recurrent major depression: Status: Acute Assessment and plan: I have resumed his Prozac (4) Long QT interval: Assessment and plan: Monitor QT interval. This is a chronic condition probably related to his methadone use. Last EKG his QTC had normalized to 487. He is no longer on telemetry as he has been stable and medically cleared for transfer to psychiatric facility. (5) Opioid dependence: Assessment and plan: Continue his home dose of methadone No longer requires monitoring of his QTC, however I would avoid use of combination meds w/ his methadone that have potential for QTC prolongation Qualifiers: Substance use status: with unspecified opioid-induced disorder Qualified Code(s): F11.29 - Opioid dependence with unspecified opioid-induced disorder (6) Alcohol abuse: Assessment and plan: not scoring high on CIWA scale, however continue to monitor (7) Hypocalcemia: Status: Acute Assessment and plan: calcium has improved. up to 8.0 and corrects for his low albumin of 3.1; no longer monitoring his labs (8) Peptic ulcer disease: Assessment and plan: Patient placed on IV Protonix for GI protection (9) Tobacco abuse: Assessment and plan: Will apply transdermal nicotine patch (10) DVT prophylaxis: Status: Acute Assessment and plan: Placed on Lovenox Subjective Subjective Interval history since last seen: Patient currently denies suicidal ideation. He seems calm, cooperative. I explained to him that given his prior suicide attempts and failure to follow up with his safety plan w/ [facility]. Exam Narrative Exam Narrative: Calm, cooperative, no distress Lungs: scattered expiratory wheezes, no rhonchi or rales Cor: RRR Extremities: no tremors Objective Last Vital Signs Temp 37.1 C 01/02/24 11:19 Pulse 83 08/24/24 11:19 Resp 18 01/02/24 11:19 BP 128/89 01/02/24 11:19 Pulse Ox 95 01/02/24 11:19 PAWSS Have you Been Recently Intoxicated or Drunk Within the Last 30 days?: Yes Have you Ever Experienced Previous Episodes of Alcohol Withdrawal?: Yes Have you ever Experienced Withdrawal Seizures?: No Have you ever Experienced Delirium Tremens(DT)s?: Yes Have you ever undergone Alcohol Rehabilitation Treatment (i.e, inpt ot outpatient treatment programs)?: No Have you ever Experienced Blackouts?: Yes Have you ever Combined Alcohol with other Downers within the last 90 days?: Yes Have you ever Combined Alcohol with any other Substance of Abuse during the last 90 days?: Yes Positive Blood Alcohol level on Presentation? [PCS.BAL]: Yes Evidence of Increased Autonomic Activity (i.e. HR>120, tremor, sweating, agitation, nausea)?: No Result: 7 Time Spent with Patient Time Spent with Patient: 25-34 minutes Time was spent: preparing to see the patient(eg.review tests), ordering medications,tests, procedures, referring, communicating with other health critical care paramedic, indepentently interpreting results, counseling the patient and care coordination
[2024-01-02] MEDS: Budesonide/Formoterol 160/4.5 6 GM 60 PUFF INH IH ×2 (15:13→20:41)
[2024-01-02 15:53] VITALS: BP 127/85; PULSE 88; RESP 17; TEMP 37.5; O2SAT 96
--- NOTE | 2024-01-02 15:54 | CMSP_ITS ---
Date of service: 01/02/24 Time of Service: 15:54 Care Management Safety Plan Status Status: Involuntary Reason for Wait Reason for Wait: Inpatient Admission Safety Plan Safety Plan: Arron was admitted with SI following a drug overdose. He is currently in Involuntary status but has been cooperative and appropriate since admission. He was screened by [facility] and is waiting for placement. INVOLUNTARY FOR INPATIENT PSYCHIATRIC STABILIZATION. Safety plan has been established to meet the needs of the patient, and consi deration of the care team, to adhere to patient goals, identify restrictions based on behavioral status, address nutrition, and determine allowed personal belongings, tools for hygiene and personal care. Determine level of activity including ambulation, level of supervision, visitors, and determine privileges based on behaviors and level of engagement by pt. SAFETY PLAN: 1. Will remain on SI/HI precautions. In Paper Clothes 2. Will remain in room under direct supervision of one-on-one staff at all times provided by [employer]; QUIN, LADLE BUILDER senior quality control technician. 3. May have paper cups, plates, finger foods as well as a cardboard spoon 4. Follow [facility] Management of the Admitted Behavioral Health Patient policy. 5. Comfort bath system only. 6. No personal belongings 7. Visitors: none at this time 8. Activities: may have soft items from activity cart at nursing's discretion 9. ?Bathroom privileges unlimited in room. 10. Phone: Limited to family via cordless phone at nursing's discretion. 11. Due to INVOLUNTARY status, patient is being held at [facility] by the Department of Mental Health ([facility]) until 2nd certification by [facility] Psychiatrist can be performed (within 24 hours). Staff will provide de-escalation support (CPI) as needed. If patient wishes to leave [facility], staff will contact [facility] Crisis Screener ([phone]) and On-Call Forestry Consultant ([phone]) as soon as possible. In the event of elopement, notify [place] [employer] Police ([phone]). Patient is currently involuntarily at [facility]. [facility] Frontline Antique Repairer will continue seeking placement. Please contact the Ceramics Artist Forestry Consultant ([phone]) for any needed changes to Safety Plan. Safety plan has been provided to interdepartmental care team. Patient will be transported by [facility] at time of discharge.
--- NOTE | 2024-01-02 15:54 | PDOC.CMSAFE ---
Date of service: 01/02/24 Time of Service: 15:54 Care Management Safety Plan Status Status: Involuntary Reason for Wait Reason for Wait: Inpatient Admission Safety Plan Safety Plan: Arron was admitted with SI following a drug overdose. He is currently in Involuntary status but has been cooperative and appropriate since admission. He was screened by [facility] and is waiting for placement. INVOLUNTARY FOR INPATIENT PSYCHIATRIC STABILIZATION. Safety plan has been established to meet the needs of the patient, and consideration of the care team, to adhere to patient goals, identify restrictions based on behavioral status, address nutrition, and determine allowed personal belongings, tools for hygiene and personal care. Determine level of activity including ambulation, level of supervision, visitors, and determine privileges based on behaviors and level of engagement by pt. SAFETY PLAN: 1. Will remain on SI/HI precautions. In Paper Clothes 2. Will remain in room under direct supervision of one-on-one staff at all times provided by [employer]; QUIN, GRAIN LOADER airport operations manager. 3. May have paper cups, plates, finger foods as well as a cardboard spoon 4. Follow [facility] Management of the Admitted Behavioral Health Patient policy. 5. Comfort bath system only. 6. No personal belongings 7. Visitors: none at this time 8. Activities: may have soft items from activity cart at nursing's discretion 9. ?Bathroom privileges unlimited in room. 10. Phone: Limited to family via cordless phone at nursing's discretion. 11. Due to INVOLUNTARY status, patient is being held at [facility] by the Department of Mental Health ([facility]) until 2nd certification by [facility] Psychiatrist can be performed (within 24 hours). Staff will provide de-escalation support (CPI) as needed. If patient wishes to leave [facility], staff will contact [facility] Crisis Screener ([phone]) and On-Call Ballpoint Pens Assembler ([phone]) as soon as possible. In the event of elopement, notify [place] [employer] Police ([phone]). Patient is currently involuntarily at [facility]. [facility] Frontline Java Lead Developer will continue seeking placement. Please contact the Relocation Associate Ballpoint Pens Assembler ([phone]) for any needed changes to Safety Plan. Safety plan has been provided to interdepartmental care team. Patient will be transported by [facility] at time of discharge.
[2024-01-02] MEDS: Enoxaparin 40 MG/0.4 ML SYR SC (18:11)
[2024-01-02] MEDS: Methadone Liquid 10 MG/ML 50 MG PO (20:56)
[2024-01-02] MEDS: Normal Saline Flush 10 ML SYR IVP (20:57)
[2024-01-02] MEDS: Acetaminophen 500 MG TAB 1000 MG PO (22:32)
[2024-01-02] MEDS: LORazepam 1 MG TAB PO/SL (23:38)
[2024-01-03] MEDS: Normal Saline Flush 10 ML SYR IVP (07:38)
[2024-01-03] MEDS: Nicotine 21 MG/24 HR PATCH TD (07:38)
[2024-01-03] MEDS: Budesonide/Formoterol 160/4.5 6 GM 60 PUFF INH IH ×2 (07:38→20:20)
[2024-01-03] MEDS: FLUoxetine 20 MG CAP 40 MG PO (07:40)
[2024-01-03] MEDS: Thiamine 100 MG TAB PO (07:41)
[2024-01-03] MEDS: Multivitamin TAB 1 TAB PO (07:41)
[2024-01-03] MEDS: Pregabalin 100 MG CAP PO ×3 (07:42→20:48)
[2024-01-03] MEDS: Pantoprazole 40 MG TABCR PO (07:42)
[2024-01-03] MEDS: Folic Acid 1 MG TAB PO (07:42)
[2024-01-03] MEDS: [UNRECOGNIZED DRUG - OTHER] PO (08:30)
[2024-01-03] MEDS: Methadone Liquid 10 MG/ML 120 MG PO (08:31)
[2024-01-03] MEDS: Betamethasone Dip. 0.05% CR 15 GM TUBE TP ×2 (09:21→21:03)
[2024-01-03 09:59] VITALS: BP 115/82; PULSE 103; RESP 17; TEMP 37.1; O2SAT 95
[2024-01-03] MEDS: Acetaminophen 325 MG TAB 650 MG PO ×2 (10:51→15:46)
[2024-01-03 15:30] VITALS: BP 113/99; PULSE 99; RESP 18; TEMP 36.6; O2SAT 95
--- NOTE | 2024-01-03 16:01 | PDOC.CMSAFE ---
Date of service: 01/03/24 Time of Service: 16:01 Care Management Safety Plan Status Status: Involuntary Reason for Wait Reason for Wait: Inpatient Admission Safety Plan Safety Plan: Care Management Safety Plan PATIENT NAME: Arron Mcbride UNIT #: [id number] ADMITTING PROVIDER: Lolis Jones PRIMARY CARE PROVIDER: KARISHMA TRIVEDI MD DATE OF ADMIT: 12/31/23 : 1980 Date of service: 01/02/24 Time of Service: 15:54 Care Management Safety Plan Status Status: Involuntary Reason for Wait Reason for Wait: Inpatient Admission Safety Plan Safety Plan: Arron was admitted with SI following a drug overdose. He is currently in Involuntary status but has been cooperative and appropriate since admission. He was screened by [facility] and is waiting for placement. INVOLUNTARY FOR INPATIENT PSYCHIATRIC STABILIZATION. Safety plan has been established to meet the needs of the patient, and consideration of the care team, to adhere to patient goals, identify restrictions based on behavioral status, address nutrition, and determine allowed personal belongings, tools for hygiene and personal care. Determine level of activity including ambulation, level of supervision, visitors, and determine privileges based on behaviors and level of engagement by pt. SAFETY PLAN: 1. Will remain on SI/HI precautions. In Paper Clothes 2. Will remain in room under direct supervision of one-on-one staff at all times provided by [employer]PS[employer]; QUIN, JAVASCRIPT PROGRAMMER stave cutting supervisor. 3. May have paper cups, plates, finger foods as well as a cardboard spoon 4. Follow [facility] Management of the Admitted Behavioral Health Patient policy. 5. Comfort bath system only. 6. No personal belongings 7. Visitors: none at this time 8. Activities: may have soft items from activity cart at nursing's discretion 9. ?Bathroom privileges unlimited in room. 10. Phone: Limited to family via cordless phone at nursing's discretion. 11. Due to INVOLUNTARY status, patient is being held at [facility] by the Department of Mental Health ([facility]) until 2nd certification by [facility] Psychiatrist can be performed (within 24 hours). Staff will provide de-escalation support (CPI) as needed. If patient wishes to leave [facility], staff will contact [facility] Crisis Screener ([phone]) and On-Call Nursing Center Tutor ([phone]) as soon as possible. In the event of elopement, notify [facility] Police ([phone]). Patient is currently involuntarily at [facility]. [facility] Frontline Milk Vendor will continue seeking placement. Please contact the Subsea Engineer Nursing Center Tutor ([phone]) for any needed changes to Safety Plan. Safety plan has been provided to interdepartmental care team. Patient will be transported by ict analyst at time of discharge.
--- NOTE | 2024-01-03 16:50 | PDOC.CMSAFE ---
Date of service: 01/03/24 Time of Service: 16:50 Care Management Safety Plan Status Status: Involuntary Reason for Wait Reason for Wait: Inpatient Admission Safety Plan Safety Plan: INVOLUNTARY FOR INPATIENT PSYCHIATRIC STABILIZATION. Safety plan has been established to meet the needs of the patient, and consideration of the care team, to adhere to patient goals, identify restrictions based on behavioral status, address nutrition, and determine allowed personal belongings, tools for hygiene and personal care. Determine level of activity including ambulation, level of supervision, visitors, and determine privileges based on behaviors and level of engagement by pt. SAFETY PLAN: 1. Will remain on SI/HI precautions. In Paper Clothes 2. Will remain in room under direct supervision of one-on-one staff at all times provided by [employer]PS[employer]; QUIN, CODING DIRECTOR candy separator enrobing. 3. May have paper cups, plates, finger foods as well as a cardboard spoon 4. Follow [facility] Management of the Admitted Behavioral Health Patient policy. 5. Comfort bath system only. 6. No personal belongings 7. Visitors: none at this time 8. Activities: may have soft items from activity cart at nursing's discretion 9. ?Bathroom privileges unlimited in room. 10. Phone: no phone privileges at this time. 11. Due to INVOLUNTARY status, patient is being held at [facility] by the Department of Mental Health ([facility]) until 2nd certification by [facility] Psychiatrist can be performed (within 24 hours). Staff will provide de-escalation support (CPI) as needed. If patient wishes to leave [facility], staff will contact [facility] Crisis Screener ([phone]) and On-Call Derrick Builder ([phone]) as soon as possible. In the event of elopement, notify [place] [employer] Police ([phone]). Patient is currently involuntarily at [facility]. [facility] Frontline Cage Manager will continue seeking placement. Please contact the Bull Gang Supervisor Derrick Builder ([phone]) for any needed changes to Safety Plan. Safety plan has been provided to interdepartmental care team. Patient will be transported by [employer] at time of discharge.
--- NOTE | 2024-01-03 17:20 | PDOC.CMPRO ---
Date of service: 01/03/24 Time of Service: 17:20 Care Management Progress Note Progress Note Text Progress Note Text: CM was asked to meet with the nursing supervisor special services, the CC for med-Surg and Winston Davila, Arron's girlfriend. Winston has been allowed to speak to Arron on the phone for the past few days, although his safety plan did not identify that privilege. This morning during one of several conversations between Winston and Arron, he became agitated and was shaking with anger according to staff. At that point the decision was made to not allow any phone calls and the safety plan was updated. When Winston heard that, she was upset and came to the hospital to discuss. She was already aware that visitors were not permitted. During the meeting, the purpose of the safety plan and the process of daily review based on behavioral expectations was explained. At the end of the conversation, Winston was much calmer and seemed satisfied with the outcome. CM agreed to call her after meeting with Arron and reviewing the plan. Nursing agreed to call her twice a day, morning and night, to update her as well. SDOH(Care Management) Screening Will the Patient Participate in the Screening?: Yes Do you worry about having a steady place to live?: yes Problems where you live: no known problems In the past 12 months, have you had to go without electric, gas, oil or water in your home?: yes Have you or anyone in your house had to go without enough food to eat?: no Has lack of transportation kept you from medical appointments or from doing things needed for daily living?: yes Has anyone in your support network made you feel unsafe for any reason?: no Health Related Social Needs Health related social needs: housing instability, housed, with risk of homelessness(Z59.811), transportation insecurity(Z59.82) and material hardship(utilities)(Z59.87)
--- NOTE | 2024-01-03 17:21 | W.PM.PROGNOT ---
Date of Service Date of service: 01/03/24 Time of Service: 17:22 Assessment and Plan Assessment and plan (1) Overdose: Status: Acute Assessment and plan: secondary to cyclobenzaprine, was intubated on admission but then was succesfully extubated the following morning. Now he is under certification and had his second certification in which the psychiatrist agreed that he is high risk of suicide d/t his prior behaviors of serious OD w/ TCA and his current OD w/ cyclobenzaprine and his failure to follow up as outpatient. Qualifiers: Encounter type: initial encounter Injury intent: intentional self-harm Qualified Code(s): T50.902A - Poisoning by unspecified drugs, medicaments and biological substances, intentional self-harm, initial encounter (2) Suicidal behavior with attempted self-injury: Status: Acute (3) Moderate recurrent major depression: Status: Acute Assessment and plan: I have resumed his Prozac, will add low dose xanax for his anxiety. (4) Long QT interval: Assessment and plan: Monitor QT interval. This is a chronic condition probably related to his methadone use. Last EKG his QTC had normalized to 487. He is no longer on telemetry as he has been stable and medically cleared for transfer to psychiatric facility. (5) Opioid dependence: Assessment and plan: Continue his home dose of methadone No longer requires monitoring of his QTC, however I would avoid use of combination meds w/ his methadone that have potential for QTC prolongation Qualifiers: Substance use status: with unspecified opioid-induced disorder Qualified Code(s): F11.29 - Opioid dependence with unspecified opioid-induced disorder (6) Alcohol abuse: Assessment and plan: not scoring high on CIWA scale, however continue to monitor (7) Hypocalcemia: Status: Acute Assessment and plan: calcium has improved. up to 8.0 and corrects for his low albumin of 3.1; no longer monitoring his labs (8) Peptic ulcer disease: Assessment and plan: Patient placed on IV Protonix for GI protection (9) Tobacco abuse: Assessment and plan: Will apply transdermal nicotine patch (10) DVT prophylaxis: Status: Acute Assessment and plan: Placed on Lovenox (11) Psoriasis: Status: Chronic Assessment and plan: added topical betamethasone cream for his scalp Subjective Subjective Interval history since last seen: Patient denies current SI. He denies current hallucinations but states that when he was in the ICU he thought that he saw people who were not there. He had been under heavy sedation at the time from his OD w/ cyclobenzaprine and was coming off his propoful drip. He curently denies hallucinations Exam Narrative Exam Narrative: Talkative, cooperative, says the he now wants to go for psychiatric help, states it takes too long to get outpatient appointment w/ [facility] No diaphoresis or tremors Objective Last Vital Signs Temp 36.6 C 01/03/24 15:30 Pulse 99 H 01/03/24 15:30 Resp 18 01/03/24 15:30 BP 113/99 H 01/03/24 15:30 Pulse Ox 95 01/03/24 15:30 PAWSS Have you Been Recently Intoxicated or Drunk Within the Last 30 days?: Yes Have you Ever Experienced Previous Episodes of Alcohol Withdrawal?: Yes Have you ever Experienced Withdrawal Seizures?: No Have you ever Experienced Delirium Tremens(DT)s?: Yes Have you ever undergone Alcohol Rehabilitation Treatment (i.e, inpt ot outpatient treatment programs)?: No Have you ever Experienced Blackouts?: Yes Have you ever Combined Alcohol with other Downers within the last 90 days?: Yes Have you ever Combined Alcohol with any other Substance of Abuse during the last 90 days?: Yes Positive Blood Alcohol level on Presentation? [PCS.BAL]: Yes Evidence of Increased Autonomic Activity (i.e. HR>120, tremor, sweating, agitation, nausea)?: No Result: 7 Time Spent with Patient Time Spent with Patient: 25-34 minutes Time was spent: preparing to see the patient(eg.review tests), ordering medications,tests, procedures, counseling the patient and care coordination
[2024-01-03] MEDS: Enoxaparin 40 MG/0.4 ML SYR SC (18:14)
[2024-01-03] MEDS: ALPRAZolam 0.25 MG TAB PO (20:48)
[2024-01-03] MEDS: Methadone Liquid 10 MG/ML 50 MG PO (20:49)
[2024-01-04] MEDS: Acetaminophen 325 MG TAB 650 MG PO ×2 (06:35→17:02)
[2024-01-04 06:39] LABS: Abs Immature Grans 0.04 10^3/uL (0.0-0.06); Absolute Basophil Count 0.03 10^3/uL (0.0-0.2); Absolute Eosinophil Count 0.19 10^3/uL (0.0-0.7); Absolute Lymphocyte Count 1.74 10^3/uL (1.2-3.4); Absolute Monocyte Count 0.37 10^3/uL (0.1-0.8); Basophils % 0.6 %; Eosinophils % 3.8 %; HCT 37.9 % (40.0-50.0); HGB 12.2 g/dL (13.5-17.5); Immature Grans % 0.8 %; MCH 31.1 pg (27.0-33.0); MCHC 32.2 % (32.0-36.0); MCV 97 fL (80-95); MPV 8.5 fL (8.0-11.0); Monocytes % 7.4 %; Neutrophils % 52.4 %; Platelet Count 266 10^3/uL (130-400); RBC 3.92 10^6/uL (4.36-5.78); RDW 14.6 % (11.8-14.1); RDW-SD 50.9 fL; WBC 4.97 10^3/uL (4.4-10.8)
[2024-01-04] MEDS: Multivitamin TAB 1 TAB PO (08:14)
[2024-01-04] MEDS: Thiamine 100 MG TAB PO (08:15)
[2024-01-04] MEDS: FLUoxetine 20 MG CAP 40 MG PO (08:15)
[2024-01-04] MEDS: ALPRAZolam 0.25 MG TAB PO (08:15)
[2024-01-04] MEDS: Pantoprazole 40 MG TABCR PO (08:15)
[2024-01-04] MEDS: Folic Acid 1 MG TAB PO (08:15)
[2024-01-04] MEDS: Pregabalin 100 MG CAP PO ×3 (08:15→20:10)
[2024-01-04 08:16] VITALS: BP 127/92; PULSE 67; RESP 15; TEMP 36.2; O2SAT 99
[2024-01-04] MEDS: Budesonide/Formoterol 160/4.5 6 GM 60 PUFF INH IH ×2 (08:47→20:06)
[2024-01-04] MEDS: Methadone Liquid 10 MG/ML 120 MG PO (08:50)
[2024-01-04] MEDS: [UNRECOGNIZED DRUG - OTHER] PO (08:50)
[2024-01-04] MEDS: Betamethasone Dip. 0.05% CR 15 GM TUBE TP (09:31)
[2024-01-04] MEDS: valACYclovir 500 MG TAB PO ×2 (11:02→20:10)
--- NOTE | 2024-01-04 11:46 | CMSP_ITS ---
Date of service: 01/04/24 Time of Service: 11:46 Care Management Safety Plan Status Status: Involuntary Reason for Wait Reason for Wait: Inpatient Admission Safety Plan Safety Plan: Care Management Safety Plan PATIENT NAME: Arron Mcbride UNIT #: [id number] ADMITTING PROVIDER: Lolis Jones PRIMARY CARE PROVIDER: KARISHMA TRIVEDI MD DATE OF ADMIT: 12/31/23 : 1980 Date of service: 01/03/24 Time of Service: 16:50 Care Management Safety Plan Status Status: Involuntary Reason for Wait Reason for Wait: Inpatient Admission Safety Plan Safety Plan: INVOLUNTARY FOR INPATIENT PSYCHIATRIC STABILIZATION. Safety plan has been established to meet the needs of the patient, and consideration of the care team, to adhere to patient goals, identify restrictions based on behavioral status, address nutrition, and determine allowed personal belongings, tools for hygiene and personal care. Determine level of activity including ambulation, level of supervision, visitors, and determine privileges based on behaviors and level of engagement by pt. SAFETY PLAN: 1. Will remain on SI/HI precautions. In Paper Clothes 2. Will remain in room under direct supervision of one-on-one staff at all times provided by [employer]; QUIN, RUG INSPECTOR HELPER torts law professor. 3. May have paper cups, plates, finger foods as well as a cardboard spoon 4. Follow [facility] Management of the Admitted Behavioral Health Patient policy. 5. Comfort bath system only. May shower if male staff member available to maintain direct observation during process. 6. No personal belongings 7. Visitors: none at this time 8. Activities: may have soft items from activity cart at nursing's discretion 9. ?Bathroom privileges unlimited in room. 10. Phone: may use portable phone to make business calls (appointments etc) at nursing's discretion. May make 2 ten minute calls to girlfriend daily, morning and night, using portable phone, at nursing discretion. 11. Due to INVOLUNTARY status, patient is being held at [facility] by the Department of Mental Health (DM) until 2nd certification by [facility] Psychiatrist can be performed (within 24 hours). Staff will provide de-escalation support (CPI) as needed. If patient wishes to leave [facility], staff will contact [facility] Crisis Screener ([phone]) and On-Call Second Butler ([phone]) as soon as possible. In the event of elopement, notify [facility] Police ([phone]). Patient is currently involuntarily at [facility]. [facility] Frontline Feed Mill Operator will continue seeking placement. Please contact the Trimmer Buffing Wheel Second Butler ([phone]) for any needed changes to Safety Plan. Safety plan has been provi ded to interdepartmental care team. Patient will be transported by [facility]pc at time of discharge.
--- NOTE | 2024-01-04 14:20 | W.PM.PROGNOT ---
Date of Service Date of service: 01/04/24 Time of Service: 14:20 Assessment and Plan Assessment and plan (1) Overdose: Status: Acute Assessment and plan: -secondary to cyclobenzaprine, was intubated on admission but then was succesfully extubated the following morning. -Now he is under certification and had his second certification in which the psychiatrist agreed that he is high risk of suicide d/t his prior behaviors of serious OD w/ TCA and his current OD w/ cyclobenzaprine and his failure to follow up as outpatient. Qualifiers: Encounter type: initial encounter Injury intent: intentional self-harm Qualified Code(s): T50.902A - Poisoning by unspecified drugs, medicaments and biological substances, intentional self-harm, initial encounter (2) Suicidal behavior with attempted self-injury: Status: Acute Assessment and plan: -as noted above (3) Moderate recurrent major depression: Status: Acute Assessment and plan: -resumed his Prozac, will add low dose xanax for his anxiety. (4) Long QT interval: Assessment and plan: -This is a chronic condition probably related to his methadone use. Last EKG his QTC had normalized to 487. He is no longer on telemetry as he has been stable and medically cleared for transfer to psychiatric facility. (5) Opioid dependence: Assessment and plan: -Continue his home dose of methadone -No longer requires monitoring of his QTC, however I would avoid use of combination meds w/ his methadone that have potential for QTC prolongation Qualifiers: Substance use status: with unspecified opioid-induced disorder Qualified Code(s): F11.29 - Opioid dependence with unspecified opioid-induced disorder (6) Alcohol abuse: Assessment and plan: not scoring high on CIWA scale, however continue to monitor (7) Hypocalcemia: Status: Acute Assessment and plan: -calcium has improved. up to 8.0 and corrects for his low albumin of 3.1; no longer monitoring his labs (8) Peptic ulcer disease: Assessment and plan: -Patient placed on IV Protonix for GI protection (9) Tobacco abuse: Assessment and plan: -Will apply transdermal nicotine patch (10) DVT prophylaxis: Status: Acute Assessment and plan: -Placed on Lovenox (11) Psoriasis: Status: Chronic Assessment and plan: -added topical betamethasone cream for his scalp Subjective Subjective Interval history since last seen: Patient states that he continues to feel anxious and is also asking for his inhaler at this time. Exam Narrative Exam Narrative: anxious appearing gentleman sitting up in bed in no acute distress, AOx4, heart RRR, lungs CTAB, abdomen soft, non-tender, non-distended, not actively expressing suicidal ideation at this time Objective Last Vital Signs Temp 97.2 F L 01/04/24 08:16 Pulse 67 01/04/24 08:16 Resp 15 01/04/24 08:16 BP 127/92 H 01/04/24 08:16 Pulse Ox 99 01/04/24 08:16 Laboratory Results - last 24 hr 01/04/24 06:15 WBC 4.97 RBC 3.92 L Hgb 12.2 L Hct 37.9 L MCV 97 H MCH 31.1 MCHC 32.2 RDW 14.6 H Plt Count 266 MPV 8.5 Immature Gran % 0.8 Neutrophils % 52.4 Lymphocytes % 35.0 Monocytes % 7.4 Eosinophils % 3.8 Basophils % 0.6 Nucleated RBC % 0.0 Absolute Neutrophils 2.60 Absolute Lymphocytes 1.74 Absolute Monocytes 0.37 Absolute Eosinophils 0.19 Absolute Basophils 0.03 PAWSS Have you Been Recently Intoxicated or Drunk Within the Last 30 days?: Yes Have you Ever Experienced Previous Episodes of Alcohol Withdrawal?: Yes Have you ever Experienced Withdrawal Seizures?: No Have you ever Experienced Delirium Tremens(DT)s?: Yes Have you ever undergone Alcohol Rehabilitation Treatment (i.e, inpt ot outpatient treatment programs)?: No Have you ever Experienced Blackouts?: Yes Have you ever Combined Alcohol with other Downers within the last 90 days?: Yes Have you ever Combined Alcohol with any other Substance of Abuse during the last 90 days?: Yes Positive Blood Alcohol level on Presentation? [PCS.BAL]: Yes Evidence of Increased Autonomic Activity (i.e. HR>120, tremor, sweating, agitation, nausea)?: No Result: 7 Time Spent with Patient Time Spent with Patient: >50 minutes Time was spent: preparing to see the patient(eg.review tests), obtaining and/or reviewing separately otained hiistory, ordering medications,tests, procedures, referring, communicating with other health childcare center administrator, indepentently interpreting results, counseling the patient and care coordination
[2024-01-04] MEDS: LORazepam 1 MG TAB PO/SL ×5 (14:25→21:27)
[2024-01-04] MEDS: Nicotine 21 MG/24 HR PATCH TD (14:28)
[2024-01-04 16:03] VITALS: BP 114/96; PULSE 97; RESP 18; TEMP 37.5; O2SAT 95
--- NOTE | 2024-01-04 17:38 | CMSP_ITS ---
Date of service: 01/04/24 Time of Service: 17:39 Care Management Safety Plan Status Status: Involuntary Reason for Wait Reason for Wait: Inpatient Admission Safety Plan Safety Plan: INVOLUNTARY FOR INPATIENT PSYCHIATRIC STABILIZATION. Safety plan has been established to meet the needs of the patient, and consideration of the care team, to adhere to patient goals, identify restrictions based on behavioral status, address nutrition, and determine allowed personal belongings, tools for hygiene and personal care. Determine level of activity including ambulation, level of supervision, visitors, and determine privileges based on behaviors and level of engagement by pt. SAFETY PLAN: 1. Will remain on SI/HI precautions. In Paper Clothes 2. Will remain in room under direct supervision of one-on-one staff at all times provided by [employer]; QUIN, SPECIAL EDUCATION COORDINATOR doctorate of chiropractic. 3. May have paper cups, plates, finger foods as well as a cardboard spoon. May have a metal spoon which must be removed as soon as the meal/snack has been consumed. 4. Follow [facility] Management of the Admitted Behavioral Health Patient policy. 5. Comfort bath system only. May shower if male staff member available to maintain direct observation during process. 6. No personal belongings 7. Visitors: none at this time 8. Activities: may have soft items from activity cart at nursing's discretion 9. ?Bathroom privileges unlimited in room. 10. Phone: No phone privileges at this time except for legal instructor. 11. Due to INVOLUNTARY status, patient is being held at [facility] by the Department of Mental Health ([facility]) until 2nd certification by [facility] Psychiatrist can be performed (within 24 hours). Staff will provide de-escalation support (CPI) as needed. If patient wishes to leave [facility], staff will contact [facility] Crisis Screener ([phone]) and On-Call Gas Scrubber Operator ([phone]) as soon as possible. In the event of elopement, notify [place] State Police ([phone]). Patient is currently involuntarily at [facility]. [facility] Frontline Show Host Or Hostess will continue seeking placement. Please contact the Drapery Installer Gas Scrubber Operator ([phone]) for any needed changes to Safety Plan. Safety plan has been provided to interdepartmental care team. Patient will be transported by [address] [facility] at time of discharge.
--- NOTE | 2024-01-04 17:38 | PDOC.CMSAFE ---
Date of service: 01/04/24 Time of Service: 17:39 Care Management Safety Plan Status Status: Involuntary Reason for Wait Reason for Wait: Inpatient Admission Safety Plan Safety Plan: INVOLUNTARY FOR INPATIENT PSYCHIATRIC STABILIZATION. Safety plan has been established to meet the needs of the patient, and consideration of the care team, to adhere to patient goals, identify restrictions based on behavioral status, address nutrition, and determine allowed personal belongings, tools for hygiene and personal care. Determine level of activity including ambulation, level of supervision, visitors, and determine privileges based on behaviors and level of engagement by pt. SAFETY PLAN: 1. Will remain on SI/HI precautions. In Paper Clothes 2. Will remain in room under direct supervision of one-on-one staff at all times provided by [employer]; QUIN, EYELETTER motorboat mechanic inboard/outboard. 3. May have paper cups, plates, finger foods as well as a cardboard spoon. May have a metal spoon which must be removed as soon as the meal/snack has been consumed. 4. Follow [facility] Management of the Admitted Behavioral Health Patient policy. 5. Comfort bath system only. May shower if male staff member available to maintain direct observation during process. 6. No personal belongings 7. Visitors: none at this time 8. Activities: may have soft items from activity cart at nursing's discretion 9. ?Bathroom privileges unlimited in room. 10. Phone: No phone privileges at this time except for real estate legal assistant. 11. Due to INVOLUNTARY status, patient is being held at [facility] by the Department of Mental Health ([facility]) until 2nd certification by [facility] Psychiatrist can be performed (within 24 hours). Staff will provide de-escalation support (CPI) as needed. If patient wishes to leave [facility], staff will contact [facility] Crisis Screener ([phone]) and On-Call Medication Coordinator ([phone]) as soon as possible. In the event of elopement, notify [place] State Police ([phone]). Patient is currently involuntarily at [facility]. [facility] Frontline Environmental Designer will continue seeking placement. Please contact the Tailing Hand Medication Coordinator ([phone]) for any needed changes to Safety Plan. Safety plan has been provided to interdepartmental care team. Patient will be transported by [facility] at time of discharge.
--- NOTE | 2024-01-04 17:47 | PDOC.CMPRO ---
Date of service: 01/04/24 Time of Service: 17:47 Care Management Progress Note Progress Note Text Progress Note Text: Arron has had several episodes of escalated behavior today. This afternoon he became so agitated over a phone call that he required medication and a second visit from [facility] crisis staff. Several huddles were held during the day to address each issue. Arron's safety plan has been revised a couple of times and now states that he is not allowed visitors or phone calls in or out. This decision was made with the input of nursing staff, providers and [facility] staff. SDOH(Care Management) Screening Will the Patient Participate in the Screening?: Yes Do you worry about having a steady place to live?: yes Problems where you live: no known problems In the past 12 months, have you had to go without electric, gas, oil or water in your home?: yes Have you or anyone in your house had to go without enough food to eat?: no Has lack of transportation kept you from medical appointments or from doing things needed for daily living?: yes Has anyone in your support network made you feel unsafe for any reason?: no Health Related Social Needs Health related social needs: housing instability, housed, with risk of homelessness(Z59.811), transportation insecurity(Z59.82) and material hardship(utilities)(Z59.87)
[2024-01-04 20:01] VITALS: BP 170/85; PULSE 96; RESP 18; TEMP 37.3; O2SAT 95
[2024-01-04] MEDS: ALPRAZolam 0.25 MG TAB 0.5 MG PO (20:09)
[2024-01-04] MEDS: Methadone Liquid 10 MG/ML 50 MG PO (20:12)
[2024-01-04] MEDS: diphenhydrAMINE 25 MG CAP 50 MG PO (22:09)
[2024-01-04 22:16] VITALS: BP 132/92; PULSE 82; RESP 16; TEMP 37; O2SAT 96
[2024-01-05 02:35] VITALS: BP 132/92; PULSE 66; RESP 16; TEMP 36.2; O2SAT 93
[2024-01-05] MEDS: Acetaminophen 325 MG TAB 650 MG PO ×2 (03:30→12:41)
[2024-01-05] MEDS: LORazepam 1 MG TAB PO/SL ×3 (06:01→18:31)
[2024-01-05] MEDS: ALPRAZolam 0.25 MG TAB 0.5 MG PO (07:31)
[2024-01-05] MEDS: [UNRECOGNIZED DRUG - OTHER] PO (07:31)
[2024-01-05] MEDS: FLUoxetine 20 MG CAP 40 MG PO (07:32)
[2024-01-05] MEDS: valACYclovir 500 MG TAB PO (07:32)
[2024-01-05] MEDS: Pregabalin 100 MG CAP PO ×2 (07:32→13:20)
[2024-01-05] MEDS: Thiamine 100 MG TAB PO (07:32)
[2024-01-05] MEDS: Pantoprazole 40 MG TABCR PO (07:33)
[2024-01-05] MEDS: Folic Acid 1 MG TAB PO (07:33)
[2024-01-05] MEDS: Multivitamin TAB 1 TAB PO (07:33)
[2024-01-05] MEDS: Nicotine 21 MG/24 HR PATCH TD (07:34)
[2024-01-05 07:40] VITALS: BP 150/103; PULSE 110; RESP 17; TEMP 36.4; O2SAT 95
[2024-01-05] MEDS: Budesonide/Formoterol 160/4.5 6 GM 60 PUFF INH IH (07:56)
--- NOTE | 2024-01-05 10:17 | MHPN_ITS ---
Date of service: 01/04/24 Time of Service: 10:17 Mental Health Emergency Note Release NK release signed:: No Reason for Visit The client was seen in his room, 215, for his second daily assessment while on an involuntary hold. The client is known to this agency. The client is being held involuntarily after an intentional overdose. The client second certification passed 01/02/2024. This is the clients second assessment of the day as no hospitals were available today to accept him. In the last 2 weeks has the pt presented for ES prior to today?: Unknown Impression The client had a previous attempt in October of this year and was safety planned home but did not follow the safety plan and therefore this EE was written. The client is a 43 year old, single, male who resides in [facility] [place]. He is employed by [employer]. All underrepresented categories were honored during this assessment. The client presents sitting on his bed with no shirt. He eyes appear sleepy visually however, he is extremely agitated. He is observed being very fidgety and at one point was observed trying to climb over the back of his bed. The client presents with some delusional thoughts i.e. regarding being in the hospital I got out of there today and am at home. At on time he thought this clinician was the screen saver on the computer. He did admit that he took an intentional overdose. He stated he has an appointment with the [place] Full Service Vending Driver. He agreed to go to sleep as he was tired and then we would look at him speaking with an contracts attorney in the am.d no SI, HI, or NSSI. The client asked to use the phone to call and cancel some upcoming appointments or see if they can be changed to over zoom. The client reported an increase in his appetite, sleep, interests and energy. The client was struggling with writing with a pen, so this video games storywriter got the client a sharpie and some crayons to write things down. The client informed this video games storywriter that he plans to take a shower once this video games storywriter leaves. The client was observed to take medication from one of the nurses that came into the room to check on him. The client seemed more energetic then the last few days he has been at [facility]. The client reported that he is struggling with his memory and cannot remember what happened Thursday or Saturday. The client asked question involving his involuntary hold and his pending inpatient stay. Plan/Disposition Recommended Disposition: Hospitalization facilities contacted. Plan: Client will remain at [facility] pending acceptance to a hospital. Person reported agreement to plan: No Reports/communication Outcome discussed with: ED/Personnel
--- NOTE | 2024-01-05 10:32 | PDOC.CMPRO ---
Date of service: 01/05/24 Time of Service: 10:32 Care Management Progress Note Progress Note Text Progress Note Text: CM spoke to [facility] this morning, requesting their notes be sent to [facility], who called and requested updated documentation from [facility] as well; requested documents were faxed. Teresa [facility], asked CM to provide a copy of the notice of patient rights to Arron; he asked about legal coordinator during her assessment. CM attempted to meet with him this morning, but he was sleeping and his RN asked not to wake him, as he did not sleep well overnight. CM met with him later, and provided him with the notice of patient rights from [facility], as well as the [facility] mental health booklet. MD to MD and RN to RN reports have been completed, and he has been accepted at [facility]. [facility] set up transport through [facility] at 7pm. CM will continue to follow. Discharge Potential Discharge Needs: Other (Inpatient psychiatric treatment) Anticipated Barriers to Discharge: Bed availability Patient/Family Education Needs: Review discharge instructions, discuss Ask Me Three Transportation: Other (secure transport coordinated by [facility]) Plan: Arron has been accepted at [facility]; MD to and RN to RN reports have been completed. [facility] set up transportation through [facility] at 7pm. SDOH(Care Management) Screening Will the Patient Participate in the Screening?: Yes Do you worry about having a steady place to live?: yes Problems where you live: no known problems In the past 12 months, have you had to go without electric, gas, oil or water in your home?: yes Have you or anyone in your house had to go without enough food to eat?: no Has lack of transportation kept you from medical appointments or from doing things needed for daily living?: yes Has anyone in your support network made you feel unsafe for any reason?: no Health Related Social Needs Health related social needs: housing instability, housed, with risk of homelessness(Z59.811), transportation insecurity(Z59.82) and material hardship(utilities)(Z59.87)
--- NOTE | 2024-01-05 10:56 | CMSP_ITS ---
Date of service: 01/05/24 Time of Service: 10:56 Care Management Safety Plan Status Status: Involuntary Reason for Wait Reason for Wait: Inpatient Admission Safety Plan Safety Plan: INVOLUNTARY FOR INPATIENT PSYCHIATRIC STABILIZATION. Safety plan has been established to meet the needs of the patient, and consideration of the care team, to adhere to patient goals, identify restrictions based on behavioral status, address nutrition, and determine allowed personal belongings, tools for hygiene and personal care. Determine level of activity including ambulation, level of supervision, visitors, and determine privileges based on behaviors and level of engagement by pt. SAFETY PLAN: 1. Will remain on SI/HI precautions. In Paper Clothes 2. Will remain in room under direct supervision of one-on-one staff at all times provided by [employer]; QUIN, NURSING HOME ADMISSIONS DIRECTOR financial services director. 3. May have paper cups, plates, finger foods as well as a cardboard spoon. May have a metal spoon which must be removed as soon as the meal/snack has been consumed. 4. Follow [facility] Management of the Admitted Behavioral Health Patient policy. 5. Comfort bath system only. May shower if male staff member available to maintain direct observation during process. 6. No personal belongings 7. Visitors: none at this time 8. Activities: may have soft items from activity cart at nursing's discretion 9. ?Bathroom privileges unlimited in room. 10. Phone: No phone privileges at this time except for legal document assistant. 11. Due to INVOLUNTARY status, patient is being held at [facility] by the Department of Mental Health ([facility]) until 2nd certification by [facility] Psychiatrist can be performed (within 24 hours). Staff will provide de-escalation support (CPI) as needed. If patient wishes to leave [facility], staff will contact [facility] Crisis Screener ([phone]) and On-Call Termite Treater Helper ([phone]) as soon as possible. In the event of elopement, notify [place] [employer] ([phone]). Patient is currently involuntarily at [facility]. [facility] Frontline Supervisor [employer] will continue seeking placement. Please contact the Preschool Lead Teacher Termite Treater Helper ([phone]) for any needed changes to Safety Plan. Safety plan has been provided to interdepartmental care team. Patient will be transported by [facility] at time of discharge.
--- NOTE | 2024-01-05 11:30 | NUR.NOTE ---
Nursing Note: Mandie cohneat called for report, report given to RANDI Smart. ALl questions were answered and they are setting up transport for patient via glass cutter helper.
[2024-01-05] MEDS: Methadone Liquid 10 MG/ML 120 MG PO (11:52)
--- NOTE | 2024-01-05 12:08 | DSE_ITS ---
Date of service: 01/05/24 Time of Service: 12:09 DS: Diagnosis Discharge Diagnosis (1) Overdose: Status: Acute Asessment and Plan: -secondary to cyclobenzaprine, was intubated on admission but then was succesfully extubated the following morning. -Now he is under EE certification and had his second certification in which the psychiatrist agreed that he is high risk of suicide d/t his prior behaviors of serious OD w/ TCA and his current OD w/ cyclobenzaprine and his failure to follow up as outpatient. (2) Suicidal behavior with attempted self-injury: Status: Acute Asessment and Plan: -as noted above (3) Moderate recurrent major depression: Status: Acute Asessment and Plan: -resumed his Prozac, will add low dose xanax for his anxiety. (4) Long QT interval: Asessment and Plan: -This is a chronic condition probably related to his methadone use. Last EKG his QTC had normalized to 487. He is no longer on telemetry as he has been stable and medically cleared for transfer to psychiatric facility. (5) Opioid dependence: Asessment and Plan: -Continue his home dose of methadone -No longer requires monitoring of his QTC, however I would avoid use of combination meds w/ his methadone that have potential for QTC prolongation (6) Alcohol abuse: (7) Hypocalcemia: Status: Acute (8) Peptic ulcer disease: (9) Tobacco abuse: (10) DVT prophylaxis: Status: Acute (11) Psoriasis: Status: Chronic Discharge Plan Disposition Patient Disposition: Psychiatric Hospital/Unit Specific Psychiatric Facility: [facility] Condition: Good Discharge Details Reason For Visit: Drug Overdose, Respiratory Failure Admit Date/Time: 12/31/23 08:14 Admit Provider: Jonathon Devine Attending Provider: Jonathon Devine Primary Care Provider: Glendy Cohen Hospital Course Hospital Course: Patient initially presented significantly somnolent after an intentional overdose of cyclobenzaprine. He was extubated the following morning after admission and since that time has been evaluated by mental health and psychiatry and has been formally EE'd. Patient did have increasing agitation and anxiety in the evening of 826 but is highly unlikely to be alcohol withdrawal as patient had been almost 5 days since admission. On the morning of 01/05/2024 he was somewhat somnolent but was able to show significant improvement when evaluated by mental health and this was attributed to some hospital associated delirium. Ultimately, patient was determined to be medically stable for discharge and was accepted to [facility]. Home Meds and New Rx's Prescriptions: No Action methadone 10 mg/mL concentrate 125 mg PO DAILY Patient Comments: 120mg PO AM and 50mg PO PM pregabalin 100 mg capsule 100 mg PO TID fluoxetine 40 mg capsule 40 mg PO DAILY Patient Comments: take 1 capsule by mouth once daily albuterol sulfate [Ventolin HFA] 90 mcg/actuation HFA aerosol inhaler 2 puff inhalation Q4H PRN (Reason: shortness of breath) Patient Comments: inhale 2 puffs by mouth every 4 hours if needed lisdexamfetamine 70 mg capsule 70 mg PO QAM Patient Comments: TAKE 1 CAPSULE BY MOUTH EVERY MORNING valacyclovir 500 mg tablet 500 mg PO BID Patient Comments: take 1 tablet by mouth twice a day Discharge Instructions Stand Alone Forms: Nursing Discharge Form Activity:: Activity as Tolerated Equipment/Supplies:: Blood Glucose Monitor Diet:: As Tolerated Discharge Orders Discharge Orders: Discharge Order (Routine); Ordered 01/05/24 Ordered By: Reynaldo Motta DS: Summary Time Spent with Patient providing and/or coordinating discharge services: Greater than 30 minutes Status at Discharge Functional status at discharge: independent ambulation Overall status at discharge: patient is back to baseline Mental Status: mental status grossly normal Speech and Movement: speech and movement normal Mood: congruent mood Affect: normal affect Quality:SDOH Health Related Social Needs: Health related social needs risk of homeless, transpo insecurity, material hardship Exam Narrative Exam Narrative: anxious appearing gentleman sitting up in bed in no acute distress, awake, alert, oriented to person, place and time but does not remember details of his current hospitalization, heart RRR, lungs CTAB, abdomen soft, non-tender, non- distended, not actively expressing suicidal ideation at this time Psych Mental Status: mental status grossly normal Speech and Movement: speech and movement normal Mood: congruent mood Affect: normal affect DS: Data Vitals/I&O Vitals and I&O: Vital Signs Temperature 97.5 F L 01/05/24 07:40 Temperature Source Temporal Artery Scan 01/05/24 07:40 Pulse 110 H 01/05/24 07:40 Pulse Rhythm Regular 01/05/24 10:05 Pulse 66 01/01/24 22:02 Respiratory Rate 17 01/05/24 07:40 Respiratory Effort Normal 01/05/24 04:11 Respiratory Depth Shallow 01/05/24 04:11 Respiratory Pattern Normal 01/05/24 04:11 Blood Pressure 150/103 H 01/05/24 07:40 Blood Pressure Mean 91 01/01/24 22:02 Blood Pressure Position Supine 01/01/24 03:41 Pulse Oximetry 95 01/05/24 07:40 Respiratory End-tidal CO2 45 01/01/24 06:00 Oxygen Delivery Method Room Air 01/05/24 07:40 Oxygen Flow Rate 0 01/05/24 07:40 Fraction of Inspired Oxygen (FIO2) 21 01/01/24 07:20 Pain Level 10 01/05/24 11:52 Intake & Output 01/04/24 01/05/24 01/05/24 17:59 05:59 17:59 Intake Total 1210 / 1210 0 / 0 Output Total 130 / 130 Balance 1080 / 1080 0 / 0 Intake: IV 10 / 10 0 / 0 Oral 1200 / 1200 Output: Urine 130 / 130 Other: Urine Color Yellow Yellow Urine Appearance Clear Clear Urine Odor None Comment pT voids independently. Independent. Voiding Methods Toilet Toilet PFSH All Active Problems (Updated 12/31/23 @ 10:19 by Jonathon Devine MD) DVT prophylaxis (Acute) Suicidal behavior with attempted self-injury (Acute) Hypocalcemia (Acute) Overdose (Acute) Attempted suicide (Acute) TCA (tricyclic antidepressant) overdose of undetermined intent (Acute) Unresponsive (Acute) Tendinitis of long head of biceps brachii of left shoulder (Acute) subacromial corticosteroid injection 08/27/22 No-show for appointment (Acute) Tendonitis of long head of biceps brachii of right shoulder (Acute) subacromial corticosteroid injection 04/16/22 Arthritis of right acromioclavicular joint (Acute) MRSA carrier (Acute) Moderate recurrent major depression (Acute) ADHD (Acute) Mild persistent asthma in adult without complication (Acute) Hand dermatitis (Acute) Recurrent genital herpes (Acute) Herniation of lumbar intervertebral disc with radiculopathy (Acute) Psoriasis (Chronic) Toothache (Acute) Deep venous thrombosis (Chronic) Abnormal LFTs (Acute) Common bile duct dilatation (Chronic) Constipation (Acute) Superficial thrombophlebitis (Acute) Alcohol withdrawal delirium (Acute) Discharge planning issues (Acute) Abdominal pain (Acute) Bronchitis (Acute) Vomiting (Acute) Acute epigastric pain (Acute) Dehydration (Acute) Medical History Depression Long QT interval Tobacco abuse Opioid dependence Neck pain, chronic H/O acute pancreatitis H/O deep venous thrombosis Perforated ulcer Peptic ulcer disease Alcohol abuse quit in 2020 methadone from [facility] Surgical History History of esophagogastroduodenoscopy (EGD) H/O lumbar discectomy x2 12/24/21 C5-C7 ACDF S/P appendectomy Family History Mother Breast cancer Social History Smoking/Tobacco Use Status: Current every day Smoking risk assessment performed?: Yes Alcohol Intake: current Alcohol Intake frequency: 3 or more drinks per day Alcohol type: beer Drug use: Daily Substance use type: marijuana, heroin, painkillers and methamphetamine Details: Presently here for OD on muscle relaxer Housing: apartment Current gender identity: male Do you feel safe at home: Yes Do you feel safe in your relationship?: Yes Time Spent with Patient Time Spent with Patient: <45 minutes Time was spent: preparing to see the patient(eg.review tests), obtaining and/or reviewing separately otained hiistory, ordering medications,tests, procedures, referring, communicating with other health dialysis patient care technician, indepentently interpreting results, counseling the patient and care coordination
[2024-01-05] MEDS: Enoxaparin 40 MG/0.4 ML SYR SC (17:41)
--- NOTE | 2024-01-12 12:23 | PDOC.MHPN2 ---
Date of service: 01/03/24 Time of Service: 19:55 Mental Health Emergency Note Release [facility] release signed:: Yes Reason for Visit In the last 2 weeks has the pt presented for ES prior to today?: No Asssessment/Mental Status Appearance: Unremarkable Attitude: Cooperative and Friendly Behavior: Unremarkable Speech: Normal Affect: Normal and Cogruent with mood Mood: Stressed and Anxious Thought process: Unremarkable Hallucinations: No evidence Delusions: No evidence Attention: Unremarkable Perception: Not impaired Orientation: Fully orientated Memory: Intact Insight: Fair Judgement: Fair Neurovegetative Symptoms Sleep: No change Appetitie: Decrease Interests: No change Energy: No change Libido: Not applicable Impression The client reported no SI, HI, or NSSI. The client reported that his appetite has decreased but there is no change in his sleep, energy, and interests. The client was informed that there is no update on if a facility was going to accept him. The client appeared to be very anxious during the re-evaluation. Arron reported that he was and was waiting for medication going on three hours. This automatic typewriter inspector told the client she would tell a nurse that he was struggling with his anxiety and looking for medication. Plan/Disposition Recommended Disposition: Hospitalization No. Plan: The client will remain at [facility] until the client is placed at an inpatient facility. The client will need twice daily assessments till placed.? Reports/communication Outcome discussed with: ED/Personnel
--- NOTE | 2024-01-12 12:47 | PDOC.MHPN2 ---
Date of service: 01/03/24 Time of Service: 12:40 Mental Health Emergency Note Release [facility] release signed:: Yes Reason for Visit In the last 2 weeks has the pt presented for ES prior to today?: No Asssessment/Mental Status Appearance: Unremarkable Attitude: Cooperative and Friendly Behavior: Unremarkable Speech: Normal Affect: Normal and Cogruent with mood Mood: Stressed Thought process: Unremarkable Hallucinations: No evidence Delusions: No evidence Attention: Unremarkable Perception: Not impaired Orientation: Fully orientated Memory: Intact Insight: Fair Judgement: Fair Neurovegetative Symptoms Sleep: Increase Appetitie: No change Interests: No change Energy: No change Libido: Not applicable Impression The client reported no SI, HI, or NSSI. The client reported that his sleep has increased but there is no change in his appetite, energy, and interests. The client reported that he has been eating solids and doing just fine. The client was seen in his room, the client appeared tired but in good spirits. Plan/Disposition Recommended Disposition: Hospitalization No. Plan: The client will remain at [facility] until the client is placed at an inpatient facility. The client will need twice daily assessments till placed. Reports/communication Outcome discussed with: ED/Personnel
--- NOTE | 2024-01-12 14:28 | MHPN_ITS ---
Date of service: 01/31/23 Time of Service: 18:35 Mental Health Emergency Note Release [facility] release signed:: Yes Reason for Visit In the last 2 weeks has the pt presented for ES prior to today?: No Asssessment/Mental Status Appearance: Unremarkable Attitude: Guarded Behavior: Unremarkable Speech: Soft and Slow Affect: Blunted and Other (Flat) Mood: Happy and Anxious Thought process: Unremarkable Hallucinations: No evidence Delusions: No evidence Attention: Unremarkable and Poor concentration Perception: Not impaired Orientation: Fully orientated Memory: Intact Insight: Fair Judgement: Fair Neurovegetative Symptoms Sleep: Increase Appetitie: Increase Interests: No change Energy: No change Libido: Not applicable Impression Per Warrant written by [facility] Melanie Madison The client arrived at [facility] ED in the bag bailer hours of 12/31/2023 via EMS. Per report of [facility] ED note: ?he was out for a walk with his girlfriend where they got into an argument, and he became upset and took ?a whole handful of Flexeril.? Per the clients report when asked about what brought him to the emergency room he states: ?I overdosed on pills and attempted to commit suicide.? This resume writer asks the client how many pills he took, and he reports: ?70.? Per report of [facility] staff the client is not prescribed Flexeril so is unsure where he received the medications. Per [facility] records the client was assessed on 11/02/2023 while in the ICU at [facility] ED after he was found unresponsive with two empty pill bottles beside him. At the time of the assessment the least restrictive option was tried with a safety plan, however the client did not follow through with the safety plan. Client reported no SI, HI, or NSSI. The client reported an increase in appetite, the client drank chicken broth from soup and has been eating ice cream. The client also reported an increase in his sleep. The client appeared to this resume writer as disoriented and tired. The client reported no change in his interests and energy level. Plan/Disposition Recommended Disposition: Hospitalization No. Plan: The client will remain at [facility] ICU waiting for his second certification. The client will need twice daily assessment till placed at an inpatient facility.? Reports/communication Outcome discussed with: ED/Personnel
--- NOTE | 2024-01-12 14:30 | MHPN_ITS ---
Date of service: 01/02/24 Time of Service: 12:46 Mental Health Emergency Note Release [facility] release signed:: Yes Reason for Visit In the last 2 weeks has the pt presented for ES prior to today?: No Asssessment/Mental Status Appearance: Unremarkable Attitude: Cooperative and Friendly Behavior: Unremarkable Speech: Soft and Slow Affect: Cogruent with mood Mood: Stressed and Anxious Thought process: Unremarkable Hallucinations: No evidence Delusions: No evidence Attention: Unremarkable Perception: Not impaired Orientation: Fully orientated Memory: Intact Insight: Fair Judgement: Fair Neurovegetative Symptoms Sleep: Increase Appetitie: Increase Interests: Increase Energy: Increase Libido: Not applicable Impression Client reported no SI, HI, or NSSI. The client reported an increase in appetite, the client apparently ate all of his oatmeal for breakfast. The client also reported an increase in his sleep, saying he got a few hours of good sleep. The client appeared to this junior technical writer as tired but in a good mod. The client reported an increase in his energy and interests. The clients second certification passed with the department of mental health psychiatrist. Plan/Disposition Recommended Disposition: Hospitalization No. Plan: The client will remain at [facility]. The client will need twice daily assessment till placed at an inpatient facility. Reports/communication Outcome discussed with: ED/Personnel
--- NOTE | 2024-01-12 14:33 | PDOC.MHPN2 ---
Date of service: 01/02/24 Time of Service: 19:35 Mental Health Emergency Note Release [facility] release signed:: Yes Reason for Visit In the last 2 weeks has the pt presented for ES prior to today?: No Asssessment/Mental Status Appearance: Unremarkable Attitude: Cooperative and Friendly Behavior: Unremarkable Speech: Normal Affect: Normal and Cogruent with mood Mood: Stressed and Anxious Thought process: Unremarkable Hallucinations: No evidence Delusions: No evidence Attention: Unremarkable Perception: Not impaired Orientation: Fully orientated Memory: Intact Insight: Fair Judgement: Fair Neurovegetative Symptoms Sleep: No change Appetitie: No change Interests: No change Energy: No change Libido: Not applicable Impression The client reported no SI, HI, or NSSI. The client reported no change in his apietite, sleep, energy, or interests. The client reported that he was able to eat dinner just fine. The client appeared tired to this life insurance underwriter. The client also reported the his has been able to walk around without being dizzy. Plan/Disposition Recommended Disposition: Hospitalization No. Plan: The client will remain at [facility]. The client will need twice daily assessment till placed at an inpatient facility. Reports/communication Outcome discussed with: ED/Personnel
--- NOTE | 2024-01-12 14:41 | PDOC.MHPN2 ---
Date of service: 01/04/24 Time of Service: 10:40 Mental Health Emergency Note Release [facility] release signed:: Yes Reason for Visit In the last 2 weeks has the pt presented for ES prior to today?: No Asssessment/Mental Status Appearance: Unremarkable Attitude: Cooperative and Friendly Behavior: Unremarkable Speech: Normal Affect: Cogruent with mood Mood: Stressed and Anxious Thought process: Unremarkable Hallucinations: No evidence Delusions: No evidence Attention: Unremarkable Perception: Not impaired Orientation: Fully orientated Memory: Intact Insight: Fair Judgement: Fair Neurovegetative Symptoms Sleep: Increase Appetitie: Increase Interests: No change Energy: No change Libido: Not applicable Impression The client reported no SI, HI, or NSSI. The client asked to use the phone to call and cancel some upcoming appointments or see if they can be changed to over zoom. The client reported an increase in his appetite, sleep, interests and energy. The client was struggling with writing with a pen, so this physician underwriter got the client a sharpie and some crayons to write things down. The client informed this physician underwriter that he plans to take a shower once this physician underwriter leaves. The client was observed to take medication from one of the nurses that came into the room to check on him. The client seemed more energetic then the last few days he has been at [facility]. The client reported that he is struggling with his memory and cannot remember what happened Thursday or Thursday. The client asked question involving his involuntary hold and his pending inpatient stay. Plan/Disposition Recommended Disposition: Hospitalization facilities contacted. Plan: The client will remain at [facility] until the client is placed at an inpatient facility. The client will need twice daily assessments till placed. At this time, WC has declined and there are no bed today at [facility], [facility] , and [facility]. Facilities contacted if Applicable [facility] Not accepted, No bed available [facility] Not accepted, Medical reasons, [facility] Not accepted, Medical reasons Reports/communication Outcome discussed with: ED/Personnel
== END 2024-01-05 19:00 | DRG 918 ==
LOC: ER 07:47 → ICU 13:04 → MS 01-01 22:25
PROVIDERS: Admitting Provider Internal Medicine; Emergency Provider Student in an Organized Health Care Education/Training Program; PCP Family Medicine; Visit Provider Internal Medicine
DX: T48.1X2A Poisoning by skeletal muscle relaxants [neuromuscular blocking agents], intentional self-harm, initial encounter (principal); F33.1 Major depressive disorder, recurrent, moderate; F11.20 Opioid dependence, uncomplicated; F05 Delirium due to known physiological condition; R94.31 Abnormal electrocardiogram [ECG] [EKG]; F10.10 Alcohol abuse, uncomplicated; E83.51 Hypocalcemia; L40.9 Psoriasis, unspecified; F17.210 Nicotine dependence, cigarettes, uncomplicated; R00.1 Bradycardia, unspecified; F19.10 Other psychoactive substance abuse, uncomplicated; K27.9 Peptic ulcer, site unspecified, unspecified as acute or chronic, without hemorrhage or perforation; J45.30 Mild persistent asthma, uncomplicated; Z22.322 Carrier or suspected carrier of Methicillin resistant Staphylococcus aureus; F90.9 Attention-deficit hyperactivity disorder, unspecified type; R40.2432 Glasgow coma scale score 3-8, at arrival to emergency department
CPT/HCPCS: 00123; 31500; 36415; 51702; 80053; 80307; 82805; 93005; 94640; 96127; 96365; 96366; 96367; 96375; 99291; J1650; 36600; 70450; 71045; 74018; 80320; 80329; 81003; 83605; 83735; 84443; 85025; 93010; 94002; 94664; 94667; 94668; 94760; 99231; 99233; 99238; J0613; J2470; J2704; J2765; J3475; J3490

== ENCOUNTER 2024-05-06 09:24 | Outpatient (CLI) | payer MEDICAID, SELFPAY ==
--- NOTE | 2024-05-06 09:30 | RT.EKG_ITS ---
APPROVED REPORT Exam: Resting ECG Reason for Exam: HIGH RISK MEDICATION USE Patient Location: O HR:71 bpm ECG Measurements Heart Rate 71 AXIS MN 146 P 59 QRSd 115 QRS 66 QT 407 T 45 QTc 443 Conclusion Sinus rhythm...normal P axis, V-rate 50- 99 Normal Electrocardiogram
== END 2024-05-06 09:25 | disposition home or self-care (01) ==
PROVIDERS: PCP Family Medicine; Visit Provider Family Medicine
DX: Z79.899 Other long term (current) drug therapy (principal)
CPT/HCPCS: 93005; 93010

== ENCOUNTER 2024-09-26 15:10 | Outpatient (REF) | payer MEDICAID, SELFPAY ==
[2024-09-26 21:20] LABS: HCT 42.1 % (40.0-50.0); HGB 13.9 g/dL (13.5-17.5); MCH 30.4 pg (27.0-33.0); MCV 92 fL (80-95); MPV 9.5 fL (8.0-11.0); Platelet Count 342 10^3/uL (130-400); RBC 4.57 10^6/uL (4.36-5.78); RDW 12.5 % (11.8-14.1); RDW-SD 42.6 fL; WBC 6.34 10^3/uL (4.4-10.8)
[2024-09-26 22:36] LABS: ALT 27 U/L (16-63); AST 21 U/L (15-37); Albumin 4.1 g/dL (3.4-5.0); Alkaline Phosphatase 93 U/L (46-116); Anion Gap 7.3 mmol/L (3-11); BUN 16 mg/dL (7-18); Bilirubin, Total 0.6 mg/dL (0.2-1.0); CO2 27.7 mmol/L (21.0-32.0); Calcium 9.2 mg/dL (8.5-10.1); Calculated LDL 113 mg/dL (<100); Chloride 104 mmol/L (98-107); Cholesterol 181 mg/dL (<200); Estimated GFR 95.18 (mL/min/1.73m2); Ferritin 96 ng/mL (26-388); Folate 7.9 ng/mL (8.6-20.0); Glucose 128 mg/dL (74-106); HDL Cholesterol 51 mg/dL (>or=40); Potassium 4.5 mmol/L (3.5-5.1); Sodium 139 mmol/L (136-145); Total Protein 7.6 g/dL (6.4-8.2); Triglyceride 85 mg/dL (<150); Vitamin B12 690 pg/mL (193-986); Vitamin D 25 Total 32 ng/mL (30-100)
[2024-09-27 19:22] LABS: Parathyroid Hormone,Intact 35 pg/mL (19-88)
[2024-09-28 11:05] LABS: HIV-1/2 Ag & Ab Screen Negative (Negative)
[2024-09-28 11:16] LABS: Hepatitis C Ab w Rflx HCV PCR Negative (Negative)
== END 2024-09-26 15:11 | disposition home or self-care (01) ==
LOC: NCHCN 15:10
PROVIDERS: PCP Family Medicine; Visit Provider Family Medicine
DX: E83.51 Hypocalcemia (principal); Z13.220 Encounter for screening for lipoid disorders; D53.9 Nutritional anemia, unspecified; Z11.59 Encounter for screening for other viral diseases; Z11.4 Encounter for screening for human immunodeficiency virus [HIV]
CPT/HCPCS: 80053; 80061; 82306; 85027; 86803; 87389; 82607; 82728; 82746; 83970